=== PATIENT | male | born 1970 | race Caucasian/White ===

== ENCOUNTER 2016-03-14 08:24 | Outpatient (RCR) | payer MEDICARE, MEDICAID ==
[~2016-03-14 08:24] MED LIST: AZIT-21 PO; BENZ200C25 PO; BRIM5DRO OU; CODE118S2 PO; CYMBALTA; EYE DROPS; GFCD10B PO; HYDR-3454 PO; NAPR500T PO; Norflex PO; OMEG-12 PO; OXCA600T3 PO; TRAV5DRO OU; [UNRECOGNIZED DRUG - OTHER]
== END 2016-04-15 09:44 | disposition home or self-care (01) ==
PROVIDERS: ATTEND Nurse Practitioner
DX: M75.41 Impingement syndrome of right shoulder (principal)

== ENCOUNTER 2016-05-06 21:03 | Emergency (ER) | payer MEDICARE, MEDICAID ==
[~2016-05-06] VITALS: Ht 170.2 cm; Wt 149.7 kg
--- OUTSIDE RECORDS SUMMARY | 2016-05-06 21:07 | XMS REPORT | Continuity of Care Document ---
Author Author [facility] Organization [facility] Address Unknown Phone Unavailable Care Team Providers Care Physical Therapist Clinic Director Name Role Phone NENA MELGOZA MD PCP Insurance Providers Payer Name Policy Number Subscriber Name Relationship [employer] [id number] Jim Shannon 18 Self / Same As Patient Medicaid [place] [id number] Jim Shannon 18 Self / Same As Patient Advance Directives Directive Response Recorded Date/Time Advance Directives No 01/14/16 10:19am Health Care Power of School Plant Consultant No 01/14/16 10:19am Organ Donor No 01/14/16 10:19am Problems Active Problems Medical Problem Onset Date Status Back pain Unknown Acute Bronchitis Unknown Acute Contusion of shoulder Unknown Acute Medications Current Home Medications Medication Dose Units Route Directions Days/Qty Instructions Start Date Brimonidine Tartrate/Timolol 5 Ml 1 Drop Each Eye Daily 04/19/14 Travoprost 5 Ml 1 Drop Each Eye Daily 04/19/14 [place]-3/Dha/Epa/Fish Oil 1 Each 1 Each Oral Daily 04/19/14 Oxcarbazepine 600 Mg 1,500 Mg Oral Daily 04/19/14 Naproxen 500 Mg 500 Mg Oral Daily 14 01/27/15 [Norflex] 100 Mg Oral Twice A Day as needed for Pain 14 01/27/15 Hydrocodone/Acetaminophen 1 Each 1-2 Tab Oral Every 4HRS for Pain 20 01/14/16 Past Home Medications Medication Directions Ordered Status [Tripliptel] , 06/22/10 Discontinued [Cymbalta] , 09/19/09 Discontinued [Eye Drops] , 09/19/09 Discontinued Promethazine Hcl/Codeine 120 Ml Syrup, 5 Ml Oral Q 4 - 6 Hrs Prn as needed for Cough 05/24/14 Discontinued Azithromycin (Zpak) 250 Mg Tab, 1 Tab Oral Daily 05/24/14 Discontinued Benzonatate (Tessalon Perles) 200 Mg Capsule, 1 Each Oral Three Times A Day as needed for Cough 05/24/14 Discontinued Social History Social History Problem Response Recorded Date/Time Alcohol Use Denies Use 01/27/2015 11:13am Recreational Drug Use No 01/27/2015 11:13am Recent Foreign Travel No 02/08/2016 9:10am Do you dip or chew tobacco? No 01/27/2015 11:13am Recent Hopitalizations No 01/14/2016 10:19am Hospital Discharge Instructions No hospital discharge instructions. Plan of Care Prescriptions See Medication Section Functional Status No functional status results. Allergies, Adverse Reactions, Alerts Allergen Type Severity Reaction Status Last Updated PENICILLIN Allergy Unknown Active 04/19/14 Immunizations No immunization records. Vital Signs No known vital signs results. Results No known relevant diagnostic tests, laboratory data and/or discharge summary. Procedures No known history of procedures. Encounters Encounter Location Arrival/Admit Date Discharge/Depart Date Attending Provider Discharged Recurring [facility] 03/14/16 8:24am 9:44am FAIZA AYALA
[2016-05-06] MEDS ORDERED: PROMETHAZINE/ CODEINE SYRUP 5 ML UDC PO ONE (21:15)
--- NOTE | 2016-05-06 21:15 | ED Fever ---
History of Present Illness General Stated Complaint: FEVER/COUGH Source: patient Exam Limitations: no limitations History of Present Illness Time seen by provider: 21:14 Initial Comments To ER with a fever up to 103 and nonproductive cough since last night as well as general malaise. He states that his is ill with similar symptoms Timing/Duration: yesterday Fever Quality: greater than 102 F Associated Symptoms: cough Allergies and Home Medications Allergies Uncoded Allergies: PENICILLIN (Allergy, Unknown, 04/19/14) Home Medications #14 100 MG PO BID PRN PRN PAIN Prescribed by: VAL BYERS on 01/27/15 1112 Brimonidine Tartrate/Timolol 5 Ml Drops 1 DROP OU DAILY (Reported) Hydrocodone/Acetaminophen 1 Each Tablet #20 1-2 TAB PO Q4H Prescribed by: EDWAR HARRIS MD on 01/14/16 1117 Naproxen 500 Mg Tablet #14 500 MG PO DAILY Prescribed by: VAL BYERS on 01/27/15 1112 [place]-3/Dha/Epa/Fish Oil 1 Each Capsule.dr 1 EACH PO DAILY (Reported) Oxcarbazepine 600 Mg Tablet 1,500 MG PO DAILY (Reported) Travoprost 5 Ml Drops 1 DROP OU DAILY (Reported) Constitutional: see HPI chills fever malaise EENTM: nose congestion see HPI Respiratory: see HPI cough Cardiovascular: no symptoms reported Genitourinary: no symptoms reported Musculoskeletal: no symptoms reported Skin: no symptoms reported Psychiatric/Neurological: No Symptoms Reported Hematologic/Lymphatic: No Symptoms Reported Past Lvnxqot-Ijcbyo-Wadqfz Hx Patient Social History Recent Foreign Travel: No Contact w/Someone Who Travel: No Recent Hopitalizations: No Seasonal Allergies Seasonal Allergies: No Surgeries HX Surgeries: Yes (KIDNEY) Respiratory Hx Respiratory Disorders: No Cardiovascular Hx Cardiac Disorders: No Neurological Hx Neurological Disorders: Yes (PSYCH PROBLEMS) Gastrointestinal Hx Gastrointestinal Disorders: No Musculoskeletal Hx Musculoskeletal Disorders: No Endocrine Hx Endocrine Disorders: No Psychosocial Hx Psychiatric Problems: Yes Behavioral Health Disorders: ADD/ADHD, Bipolar, Personality Disorder, Depression Physical Exam Vital Signs Vital Sign - Last 12Hours Capillary Refill : General Appearance: WD/WN no apparent distress Eyes: Bilateral Eye EOMI, Bilateral Eye Normal Inspection, Bilateral Eye PERRL HEENT: PERRL/EOMI normal ENT inspection TMs normal pharynx normal Neck: non-tender full range of motion Respiratory: lungs clear normal breath sounds no respiratory distress no accessory muscle use Cardiovascular: regular rate, rhythm no murmur Gastrointestinal: normal bowel sounds non tender soft Extremities: normal range of motion non-tender normal inspection Neurologic/Psychiatric: alert normal mood/affect oriented x 3 Skin: normal color warm/dry Progress/Results/Core Measures Results/Orders Micro Results Microbiology 05/06/16 Influenza Types A,B Antigen (ROBEL) - Final, Complete My Orders Orders-VAL BYERS APRN Chest Pa/Lat (2 View) (05/06/16 21:10) Influenza A And B Antigens (05/06/16 21:10) Promethazine/ Codeine Syrup (Phenergan W (05/06/16 21:15) Medications Given in ED Current Medications Medications Dose Ordered Sig/Blanca Route Start Time Stop Time Status Last Admin Dose Admin Promethazine HCl/ Codeine 5 ml ONCE ONCE PO 05/06/16 21:15 05/06/16 21:16 DC 05/06/16 21:27 5 ML Vital Signs/I&O Vital Sign - Last 12Hours 05/06/16 05/06/16 21:10 21:10 Temp 98.0 Pulse 122 Resp 20 B/P 145/80 Pulse Ox 98 O2 Delivery Room Air Room Air Departure Impression Impression: Primary Impression: Influenza-like symptoms Disposition: 01 HOME, SELF-CARE Condition: Stable Departure-Patient Inst. Decision time for Depature: 21:46 Referrals: [facility] (PCP/Family) Primary Care Physician Patient Instructions: VIRAL SYNDROME Add. Discharge Instructions: 1. Medication as directed 2. REturn tO ER for any concerns 3. See your doctor later this week Scripts Promethazine HCl/Codeine (Promethazine-Codeine Syrup)118 Ml Syrup5 Ml PO Q4H PRN COUGH #120 ML Prov:VAL BYERS APRN 05/06/16 Oseltamivir Phosphate (Tamiflu)75 Mg Cap75 Mg PO BID #9 CAP Prov:VAL BYERS APRN 05/06/16 Work/School Note: Work Release Form Date Seen in the Emergency Department: May 06, 2016 Return to Work: May 08, 2016 VAL BYERS APRN May 06, 2016 21:15
--- NOTE | 2016-05-06 21:42 | Diagnostic Imaging Report ---
INDICATION: Cough, fever and dizziness. COMPARISON STUDIES: Chest from 05/24/2014. FINDINGS: Frontal and lateral views of the chest demonstrate the lungs to be clear. The heart, mediastinum and pulmonary vascularity are normal. Dextroscoliosis is again identified. IMPRESSION: There are no acute findings. Dictated by: Dictated on workstation # [id number]
[2016-05-06] MEDS ORDERED: OSLT75C PO (21:47)
[2016-05-06] MEDS ORDERED: CODE118S2 PO (21:47)
[2016-05-06] MEDS ORDERED: RX-OSELTAMIVIR 75 MG (TAMIFLU) BOX OF 10 PO ONE (21:55)
[2016-05-06 21:59] VITALS: BP 0/0
== END 2016-05-06 21:59 | disposition home or self-care (01) ==
LOC: EDUNIT# 21:03 → ER 21:04
DX: J11.1 Influenza due to unidentified influenza virus with other respiratory manifestations (principal)
CPT/HCPCS: 71020; 87804; 99283

== ENCOUNTER 2018-12-01 05:47 | Outpatient (CLI) | payer MEDICARE, MEDICAID ==
[~2018-12-01] VITALS: Ht 167.6 cm; Wt 149.7 kg
[~2018-12-01 05:47] MED LIST changes: +CODE118S4 PO; -HYDR-3454 PO; +HYDR-3455 PO; +NAPR-1071 PO; -NAPR500T PO; +OSLT75C PO
[2018-12-01] MEDS ORDERED: LATA2.5D5 OU (13:29)
[2018-12-01] MEDS ORDERED: OMEG100032 PO (13:29)
[2018-12-01] MEDS ORDERED: OXCA600T10 PO (13:29)
[2018-12-01] MEDS ORDERED: DULO60CA59 PO (13:29)
[2018-12-01] MEDS ORDERED: BRIM5DRO OU (13:29)
[2018-12-01] MEDS ORDERED: DULO30CA3 PO (13:33)
== END 2018-12-01 13:33 | disposition home or self-care (01) ==
LOC: PREOP 05:47
PROVIDERS: ATTEND Specialist
DX: Z01.818 Encounter for other preprocedural examination (principal)

== ENCOUNTER 2018-12-04 06:32 | Day surgery (SDC) | payer MEDICARE, MEDICAID ==
[~2018-12-04] VITALS: Ht 167.6 cm; Wt 149.7 kg
[~2018-12-04 06:32] MED LIST changes: +DULO30CA3 PO; +DULO60CA59 PO; +LATA2.5D5 OU; +OMEG100032 PO; +OXCA600T10 PO
[2018-12-04] MEDS ORDERED: TROPICAMIDE 1% OPH SOLN (MYDRIACYL) 15 ML BTL OU PRN (06:45)
[2018-12-04] MEDS ORDERED: PHENYLEPHRINE 10% OPHTH (NEO-SYN) 5 ML BTL OU PRN (06:45)
[2018-12-04 06:50] VITALS: BP 133/89
[2018-12-04] MEDS: TETRACAINE 0.5% OPHTH SOLN 4 ML BTL (SINGLE DOSE ONLY) OU PRN ×3 (06:55→07:11)
[2018-12-04] MEDS ORDERED: MIDAZOLAM 2 MG/2 ML (VERSED) VIAL ONE (07:00)
--- NOTE | 2018-12-04 07:24 | Ophthalmologist Pre-Op Note ---
Pre-Operative Progress Note H&P Reviewed The H&P was reviewed, patient examined and no changes noted. Date H&P Reviewed: Dec 04, 2018 Time H&P Reviewed: 07:23 Pre-Op Dx Secondary Cataract, Bilateral Eyes ENRRIQUE WILKINS MD Dec 04, 2018 07:24
[2018-12-04 07:55] VITALS: BP 133/89
--- NOTE | 2018-12-04 07:58 | Ophthalmology Operative Report ---
YAG Capsulotomy PREOPERATIVE DIAGNOSIS: Secondary Cataract Bilateral POSTOPERATIVE DIAGNOSIS: Secondary Cataract Bilateral PROCEDURE: YAG Capsulotomy, Bilateral SURGEON: Fortunato Wilkins ANESTHESIA: Topical anesthesia COMPLICATIONS: None ESTIMATED BLOOD LOSS: Minimal DESCRIPTION OF PROCEDURE: After proper informed consent was obtained, the patient's, a 48 male , received one drop of Tropicamide and one drop of Tetracaine in each eye. The patient was then placed at the YAG laser and using a power of 3.4 millijoules and bursts [ 12] right eye and [ 14] left eye were used to fashion a central capsulotomy. The patient tolerated the procedure well without complications. FORTUNATO WILKINS MD Dec 04, 2018 07:58
== END 2018-12-04 07:55 | disposition home or self-care (01) ==
LOC: SDC 06:32
PROVIDERS: ATTEND Specialist
DX: H26.493 Other secondary cataract, bilateral (principal); F32.9 Major depressive disorder, single episode, unspecified; F41.9 Anxiety disorder, unspecified; Z88.0 Allergy status to penicillin; Z79.899 Other long term (current) drug therapy; Z83.3 Family history of diabetes mellitus; Z83.511 Family history of glaucoma

== ENCOUNTER 2019-04-19 20:55 | Emergency (ER) | payer MEDICARE, MEDICAID ==
[~2019-04-19] VITALS: Ht 170.1 cm; Wt 150.6 kg
--- NOTE | 2019-04-19 21:46 | Diagnostic Imaging Report ---
ANKLE, RIGHT, 3 VIEWS COMPARISON: None available. INDICATION: Right ankle pain after injury TECHNIQUE: Non-weight bearing AP, oblique, and lateral views. FINDINGS: Medial inversion of the foot is noted. No acute fracture about the ankle. No osteochondral lesion of the talar dome. IMPRESSION: 1. Medial inversion of the foot may be chronic in nature. There is no acute fracture or traumatic malalignment about the right ankle. Dictated by: Dictated on workstation # [id number]
--- NOTE | 2019-04-19 21:58 | ED Lower Extremity ---
General Chief Complaint: Lower Extremity Stated Complaint: R ANKLE INJ Nursing Triage Note: STATES FELL DOWN SOME STARIS ON FRIDAY AND NOW HAVING DIFFICULT TIME BEARING WEIGHT D/T PAINAND SWELLING IN HIS RIGHT FOOT. Nursing Sepsis Screen: No Definite Risk Source: patient Exam Limitations: no limitations History of Present Illness Date Seen by Provider: Apr 19, 2019 Time Seen by Provider: 21:09 Initial Comments 48-year-old male who presents to the emergency room with right ankle pain and swelling after he twisted his ankle and fell down stairs 2 days ago. He denies other injuries from the fall. He reports pain with ambulation. Allergies and Home Medications Allergies Coded Allergies: Penicillins (Verified Allergy, Unknown, 12/01/18) Home Medications Brimonidine Tartrate/Timolol 5 Ml Drops, 1 DROP OU DAILY, (Reported) Duloxetine HCl 60 Mg Capsule.dr, 60 MG PO DAILY, (Reported) Duloxetine HCl 30 Mg Capsule.dr, 30 MG PO DAILY, (Reported) Latanoprost 2.5 Ml Drops, 1 DROPS OU DAILY, (Reported) [place]-3/Dha/Epa/Fish Oil 1,000 Mg Capsule, 1,000 MG PO BID, (Reported) Oxcarbazepine 600 Mg Tablet, 1,500 MG PO DAILY, (Reported) TAKE 2.5 OF 600MG TABS Past Ywqumyc-Sjbigv-Jzwytq Hx Patient Social History Alcohol Use: Denies Use Recreational Drug Use: No Recent Foreign Travel: No Contact w/Someone Who Travel: No Recent Infectious Disease Expo: No Recent Hopitalizations: No Physical Abuse: No Sexual Abuse: No Mistreated: No Fear: No Seasonal Allergies Seasonal Allergies: No Past Medical History Surgeries: Yes (KIDNEY) Respiratory: No Cardiac: No Neurological: Yes (PSYCH PROBLEMS) Developmental Disorder Gastrointestinal: No Musculoskeletal: No Endocrine: No HEENT: No Psychosocial: Yes ADD/ADHD, Anxiety, Bipolar, Personality Disorder, Depression Integumentary: No Blood Disorders: No Physical Exam Vital Signs Vital Signs - First Documented 04/19/19 21:04 Temp 36.7 Pulse 114 Resp 20 B/P (MAP) 128/91 (103) Pulse Ox 98 Capillary Refill : Less Than 3 Seconds Height, Weight, BMI Height: 5'6.00" Weight: 330lbs. 0.0oz. 149.367449lx; 52.00 BMI Method:Stated Progress/Results/Core Measures Results/Orders My Orders Orders - DESTIN COSME Ankle, Right, 3 Views (04/19/19 21:09) Vital Signs/I&O 04/19/19 21:04 Temp 36.7 Pulse 114 Resp 20 B/P (MAP) 128/91 (103) Pulse Ox 98 Blood Pressure Mean: 103 Departure Impression Primary Impression: Sprain and strain of ankle Disposition: 01 HOME, SELF-CARE Condition: Stable/Unchanged Departure-Patient Inst. Decision time for Depature: 21:57 Referrals: [facility] (PCP/Family) Primary Care Physician Patient Instructions: Ankle Sprain (DC) Add. Discharge Instructions: Use the George bandage that was provided as needed for comfort. Ice to the sore areas at 20 minute intervals. Tylenol and ibuprofen as needed for pain relief. Follow-up with your primary care provider within 1 week for recheck. Return back to the emergency room for worsening symptoms or concerns as needed. All discharge instructions reviewed with patient and/or family. Voiced understanding. DESTIN COSME Apr 19, 2019 21:58
[2019-04-19 22:07] VITALS: BP 128/91
== END 2019-04-19 22:07 | disposition home or self-care (01) ==
LOC: EDUNIT# 20:55 → ER 20:57
DX: S93.401A Sprain of unspecified ligament of right ankle, initial encounter (principal); F90.9 Attention-deficit hyperactivity disorder, unspecified type; F41.9 Anxiety disorder, unspecified; F31.9 Bipolar disorder, unspecified; F60.9 Personality disorder, unspecified; Z88.0 Allergy status to penicillin; X50.1XXA Overexertion from prolonged static or awkward postures, initial encounter; W10.9XXA Fall (on) (from) unspecified stairs and steps, initial encounter
CPT/HCPCS: 73610

== ENCOUNTER 2019-07-23 20:54 | Inpatient (IN) | payer MEDICARE, MEDICAID ==
[~2019-07-23] VITALS: Ht 170 cm; Wt 136.9 kg
--- OUTSIDE RECORDS SUMMARY | 2019-07-23 21:01 | XMS REPORT | Summary of Care ---
Author Author [facility] Organization [facility] Address Unknown Phone Unavailable Encounter [facility] RAMA Cervantes [id number] Date(s): 11/12/16 - 11/12/16 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, right eye, stage unspecified Final: Morbid (severe) obesity due to excess calories Final: Body mass index (BMI) 45.0-49.9, adult Discharge Disposition: Home - 01 Attending Physician: CECY DAS MD Admitting Physician: CECY DAS MD Vital Signs Most recent to 1 oldest [Reference Range]: Vital Signs Post procedure Status/Type (11/12/16 11:55 PM) Temperature 99.2 DegF [96.8-99.7 DegF] (11/12/16 11:45 PM) Temp Method Temporal (11/12/16 11:45 PM) Heart Rate 92 bpm (11/12/16 11:55 PM) Respiratory Rate 18 br/min [14-20 br/min] (11/12/16 11:00 PM) Blood Pressure 150/78 mmHg [90-180/50-90 mmHg] (11/12/16 11:55 PM) NIBP MAP 92 mmHg (11/12/16 11:55 PM) NIBP MAP Calc 102 (11/12/16 11:55 PM) NIBP Alarms set and Yes on (11/12/16 11:00 PM) BP Location Arm, left (11/12/16 11:00 PM) BP Cuff Size Large (11/12/16 11:00 PM) Problem List No data available for this section Allergies, Adverse Reactions, Alerts Substance Reaction Severity Status penicillin Active Medications DULoxetine 60 mg oral delayed release capsule 1 CAP, PO, Daily, 0 Refill(s) Start Date: 11/12/16 Status: Ordered OXcarbazepine 600 mg oral tablet = 1 TAB, PO, BID (2 times a day), 0 Refill(s) Start Date: 11/12/16 Status: Ordered Results No data available for this section Immunizations No data available for this section Procedures Procedure Date Related Diagnosis Body Site Eye Vitrectomy Mini1 11/12/16 1auto-populated from documented surgical case Social History No data available for this section Functional Status No data available for this section Assessment and Plan No data available for this section Hospital Discharge Instructions No data available for this section
--- OUTSIDE RECORDS SUMMARY | 2019-07-23 21:01 | XMS REPORT | Summary of Care ---
Author Author [facility] Organization [facility] Address Unknown Phone Unavailable Encounter [facility] RAMA Cervantes [id number] Date(s): 11/12/16 - 11/12/16 [facility] [address] [id number] Final: Panophthalmitis (acute), right eye Final: Glaucoma [...]
--- OUTSIDE RECORDS SUMMARY | 2019-07-23 21:01 | XMS REPORT ---
Author Author [employer]. Organization [employer] Address [address] [address] Care Team Providers Care Black Mill Operator Name Role Phone RUDY CARRASQUILLO Unavailable Unavailable RUDY CARRASQUILLO Unavailable Unavailable NENA MELGOZA Unavailable [facility] Unavailable [facility] [place] [facility] Unavailable INGRID RIVERO Unavailable NO, LOCAL PHYSICIAN Unavailable Unavailable LIZET LANGSTON Unavailable RUDY CARRASQUILLO Unavailable RUDY CARRASQUILLO Unavailable RUDY CARRASQUILLO Unavailable Migration, Doctor Unavailable Unavailable Migration, Doctor Unavailable Unavailable Migration, Doctor Unavailable Unavailable CHRISTIAN BROWN DO Unavailable Unavailable VAL BYERS MACHINIST/MACHINE BUILDER Unavailable Unavailable FAIZA AYALA NEUROPSYCHOLOGIST Unavailable Unavailable Migration, Doctor Unavailable Unavailable RUDY CARRASQUILLO Unavailable JOSUE PENNNYA Unavailable [facility] PCP [phone] RUDY CARRASQUILLO NEUROPSYCHOLOGIST Unavailable Unavailable PCP, NONE Unavailable Unavailable FRANKY MCCORD, ENRRIQUE Cifuentes Unavailable Unavailable ISSA GALVEZ DO Unavailable Unavailable PEÑA MCCORD, NATASHA London Unavailable Unavailable KAY VAUGHN NEUROPSYCHOLOGIST Unavailable Unavailable VAL BYERS MACHINIST/MACHINE BUILDER Unavailable Unavailable FAIZA AYALA NEUROPSYCHOLOGIST Unavailable Unavailable KIMBERLY MCCORD, EDWAR Delacruz Unavailable Unavailable KELLY ORTIZ MD Unavailable Unavailable DESTIN MANCINI Unavailable Unavailable [facility] PCP QUITA GARCIA Unavailable QUITA GARCIA Unavailable Allergies The data below is from unstructured sources Allergen Type Severity Reaction Status Last Updated PENICILLIN Allergy Unkno wn Active 04/19/14 Allergen Type Severity Reaction Last Updated Verified Status Penicillins ([id number]) Allergy Unknown December 01, 2018 Ye s Active No Information Medications Current Medications Medication Ingredient Drug Dose Dates Status Sig Sig Care Class(es) (Normalized) (Original) Provid er atorvastati atorvastati HMG-CoA 20 mg 07-16-19 Active no At orvastatin no n 20 mg n Reductase 18 information Calcium 20 na me oral tablet Translation Inhibitor mg Orally (no (2 s: [ Once a day 1 phone) sources.) Atorvastati tablet 24h n Calcium Jun, 20 mg, 30 day(s) Atorvastati Active n Calcium 20 mg] cholecalcif cholecalcif Vitamin D 72288 07-16-19 Active no Cholecalcife no rajat 30331 rajat [IU] 18 - information rol 93769 nam e unt oral Translation 10-08-19 UNIT Orally (no capsule (1 s: [ 18 2 times a phone) source.) Cholecalcif week 1 rajat 92594 capsule 17 UNIT] Jun, 2017 Sep, 12 weeks Active ciprofloxac Ciprofloxac Quinolone 500 mg 06-11-19 Active take 1 Cipro 500 mg no in 500 mg in Antimicrobi 14 tablet by 1 tablet by name oral tablet Translation al mouth every Oral route (no (1 source.) s: [ Cipro twelve hours every 12 phone) 500 mg] hours for 10 day(s) May, Active famotidine famotidine Histamine-2 20 mg 07-15-19 Active no Famotidine no 20 mg oral Translation Receptor 18 information 20 mg Oral ly name tablet (2 s: [ Antagonist Once a day 1 (no sources.) Famotidine tablet at phone) 20 mg, bedtime 24h Famotidine Jun, 20 mg] 30 day(s) Active no Fish Oil no 1000 02-03-20 Active no Fish Oil n o information Concentrate information mg 13 information Con centrate name (1 source.) 1000 mg 1000 mg 2 (no Translation times per phone) s: [ Fish day Jan, Active Concentrate 1000 mg] latanoprost latanoprost Prostagland 1 Active no Latanopr ost no 0.05 mg/ml in Analog drop(s information Active 1 name ophthalmic ) OPTHALMIC (no solution (3 Daily phone) sources.) Completed/Discontinued Medications Medication Ingredient Drug Dose Dates Status Sig Sig Care Class(es) (Normalized) (Original) Provid er no Cymbalta , no 04-19-19 Complete no Cymbalta , (no information Not information 15 d information Not phone) (2 Applicable Applicable sources.) Discontinued no Eye Drops no 1 04-19-19 Complete no Eye Drop s no information information drop(s 15 d information Discont inued name (1 source.) ) NOT (no APPLICABLE phone) April 19, 2014 no Eye Drops , no 04-19-[address] ops , (no information Not information drop(s 15 d information Not phone) (2 Applicable ) Applicable sources.) Discontinued no [place]-3/Dha no 12-02-19 Complete take 1 [place]-3/Dha/ (no information /Epa/Fish information 19 d capsule by Epa/F faiza Oil phone) (2 Oil (Fish mouth once (Fish Oil sources.) Oil 1,000 daily 1,000 Mg Ec Mg Ec Softgel) 1 Softgel) 1 Each Each Capsule.dr, Capsule.dr, 1 Each Oral 1 Each Oral Daily Discontinued no [place]-3/Dha no 1000 Complete take 1 [place]-3/Dha/ (n o information /Epa/Fish information mg d capsule by Epa/Fi sh Oil phone) (2 Oil (Fish mouth twice (Fish Oil sources.) Oil 1,000 daily, then 1,000 Mg Mg Softgel) take 1 Softgel) 1,000 Mg capsule by 1,000 Mg Capsule mouth, then Capsule take 1 1,000 Mg capsule by ORAL Twice A mouth Day oseltamivir Oseltamivir Neuraminida 75 mg 05-06-19 Complete no Oseltamivir no 75 mg oral se 17 - d information Phosphate na me capsule (3 Inhibitor 12-02-19 Discontinued (no sources.) 19 75 ORAL phone) Twice A Day May 06, 2016 9:47pm December 01, 2018 no Tripliptel no 04-19-19 Complete no Tripliptel no information information 15 d information Disconti nued name (1 source.) NOT (no APPLICABLE phone) April 19, 2014 no Tripliptel no 04-19-19 Complete no Tripliptel , ( no information , Not information 15 d information Not phone) (2 Applicable Applicable sources.) Discontinued Problems Active Problems Problem Normalized Date of Normalized Normalized Provider Fac ility Classification Problem(s) Problem Problem Problem Sta tus Onset/Resoluti Duration on Allergic Allergy status 05-24-2019 - Episodic Active ENRRIQUE LEMUS [facility] Via reactions (10 to penicillin , MD Mancini sources.) Translations: Hospital - [ - Eczema, [place] unspecified (28407) type L30.9] Anxiety Anxiety 05-24-2019 - Chronic Active RUDY [facility] disorders (20 Translations: [address] [place] [address] sources.) [ Anxiety, - of [facility] Anxiety F41.9, [place] ([address]86) Anxiety, - Anxiety F41.9] Attention-defi Attention-defi 05-24-2019 - Chronic Active TRA VIS BERNOT [facility] Via cit conduct cit , NEUROPSYCHOLOGIST [facility] and disruptive hyperactivity [facility] (2 unspecified (93593) sources.) type Other and Benign Episodic Active ISSA GALVEZ [facility] Via unspecified neoplasm of [facility] benign colon [facility] - neoplasm (2 [place] sources.) (85480) Unclassified Body mass Chronic Active RUDY CARRASQUILLO Juliann duvall (9 sources.) index (BMI) [address] [place] [address] 50-59.9 , of [facility] adult [place] ([address]10) Translations: [ - BMI 50.0-59.9, adult Z68.43, - BMI 50.0-59.9, adult Z68.43] Cataract (2 Cataract no information Active [facility] sources.) CENTER/ISAMAR Mancini [address] [place] [address] ([address]) Other lower Cough Episodic Active VAL BYERS Not Avail able respiratory Translations: (89670) disease (20 [ - Cough R05, sources.) - Cough R05] Other lower Cough Episodic Active NATASHA POMPA [facility] Vi a respiratory MD Mancini disease (1 Hospital - source.) [place] ([address]) Other upper Disease of Episodic Active RUDY Humphreys joserodrick respiratory upper [address] [place] [address] disease (11 respiratory of [facility] sources.) tract, [place] ([address]) unspecified Translations: [ - Upper respiratory disease J39.9, - Upper respiratory disease J39.9] Medical Encounter for Episodic Active RUDY jeffries examination/ev general adult [address] [place] [address] aluation (2 medical of [facility] sources.) examination [place] (33561) without abnormal findings Translations: [ - Medicare annual wellness visit, initial Z00.00] Residual Family history Episodic Active Doctor Julianni ty codes; of diabetes Migration [facility] unclassified mellitus of [place] (14 sources.) Translations: [place] (09292) [ - Family history of diabetes mellitus Z83.3] Residual Family history Episodic Active ENRRIQUE BROWNNILSA [facility] Via codes; of glaucoma MD Mancini unclassified Hospital - (6 sources.) [place] ([address]) Unclassified Family history Episodic Active RUDY CARRASQUILLO [facility] (14 sources.) of ischemic [address] [place] [address] heart disease of [facility] and other [place] ([address]118) diseases of the circulatory system Translations: [ - Family history of early CAD Z82.49, - Family history of diabetes mellitus Z83.3, - Family history of early CAD Z82.49, - Family history of diabetes mellitus Z83.3] Fever of Fever, Episodic Active RUDY CARRASQUILLO [facility] unknown origin unspecified [address] [place] [address] (11 sources.) Translations: of [facility] [ - Fever [place] (41751) R50.9, - Fever R50.9] Esophageal Gastro-esophag Chronic Active [facility] disorders (20 eal reflux [address] [place] [address] sources.) disease of [facility] without [place] ([address]53) esophagitis Translations: [ - Gastroesophage al reflux disease without esophagitis K21.9, Gastroesophage al reflux disease without esophagitis, Gastroesophage al reflux disease without esophagitis, Gastroesophage al reflux disease without esophagitis, - Gastroesophage al reflux disease without esophagitis K21.9] Residual Influenza-like Episodic Active [facility] Via codes; symptoms [facility] [place] unclassified Translations: [facility] (3 sources.) [ (27165) Influenza-like symptoms] Other injuries Injury of Episodic Active [facility] Via and conditions ankle [facility] [place] due to [facility] external (87108) causes (1 source.) Spondylosis; Lumbosacral Chronic Active KAY [facility] Via intervertebral spondylosis RODERICK Mancini disc without Hospital - disorders; myelopathy [place] other back (98113) problems (1 source.) 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 ENRRIQUE MARINA MARIAH [facility] Via (7 sources.) depressive MD Mancini disorder, Hospital - single [place] episode, (85451) unspecified Translations: [ BIPOLAR DISORDER, UNSPECIFIED] Other Morbid Chronic Active [facility] nutritional; (severe) [address] [facility] endocrine; and obesity due to of [facility] metabolic excess [place] () disorders (2 calories sources.) Translations: [ - Morbid obesity E66.01] External cause Other external Episodic Active KAY [facility] Via codes: cause status RODERICK Mancini Unspecified (4 Translations: Hospital - sources.) [ OTHER [place] EXTERNAL CAUSE () STATUS, ACTIVITY, PERSONAL BATHING AND SHOWERING] Other Other long Episodic Active ENRRIQUE WILKINS [facility] Via aftercare (6 term (current) , MD Mancini sources.) drug therapy [facility] () Other upper Other seasonal Chronic Active RUDY Schmitt [facility] respiratory allergic [address] [place] [address] Center disease (20 rhinitis of [facility] sources.) Translations: [place] () [ - Seasonal allergic rhinitis, unspecified allergic rhinitis trigger J30.2, - Seasonal allergic rhinitis, unspecified allergic rhinitis trigger J30.2] Cataract (6 Other Chronic Active ENRRIQUE ANLIKER [facility] Via sources.) secondary , MD Mancini cataract, Hospital - bilateral [place] () Otitis media Otitis media, Episodic Active RUDY Schmitt [facility] and related unspecified, [address] [facility] conditions (20 left ear of [facility] sources.) Translations: [place] () [ - Left otitis media, unspecified chronicity, unspecified otitis media type H66.92, - Eustachian tube dysfunction, right H69.81, - Left otitis media, unspecified chronicity, unspecified otitis media type H66.92, - Eustachian tube dysfunction, right H69.81] External cause Overexertion 05-24-2019 - Episodic Active TRAVI S BERNOT [facility] Via codes: from prolonged , NEUROPSYCHOLOGIST [place] Natural/enviro static or Hospital - nment (2 awkward [place] sources.) postures, (27867) initial encounter Other Pain in right 05-24-2019 - Episodic Active DESTIN GRACIA NOT [facility] Via non-traumatic ankle and , NEUROPSYCHOLOGIST [place] joint joints of Hospital - disorders (2 right foot [place] sources.) (27185) External cause Parking lot as Episodic Active VAL BYERS [facility] Via codes: Place the place of [place] of occurrence occurrence of Hospital - (2 sources.) the external [place] cause (11648) Translations: [ BATHROOM OF SINGLE-FAMILY (PRIVATE) HOUS] Personality Personality 05-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 - Chronic Active DESTIN BE RNOT [facility] Via disorders (2 disorder, , NEUROPSYCHOLOGIST [place] sources.) unspecified Hospital - [place] (34827) Unclassified Secondary no information Active COMM[facility]ITY [facility] Via (1 source.) cataract [facility] ([address]) Other Special Episodic Active ISSA LEONOR , [facility] Via screening for screening for DO [place] suspected malignant Hospital - conditions neoplasms of [place] (not mental colon (90791) disorders or infectious disease) (1 source.) Sprains and Sprain of 05-24-2019 - Episodic Active DESTIN SONNY OT [facility] Via strains (2 unspecified , NEUROPSYCHOLOGIST [place] sources.) ligament of Hospital - right ankle, [place] initial (87512) encounter External cause Unspecified 05-24-2019 - Episodic Active LYNNET TE [facility] Via codes: Fall (5 fall VAUGHN [place] sources.) Translations: Hospital - [ OTH FALL [place] SAME LEV DUE (18848) TO COLLISION W ANO, FALL IN (INTO) SHOWER OR EMPTY BATHTUB, , FALL (ON) (FROM) UNSPECIFIED STAIRS AND ] Other injuries Unspecified Episodic Active VAL BYERS [facility] Via and conditions injury of [facility] due to lower back, Hospital - external initial [place] causes (2 encounter (67630) sources.) Unclassified no information no information Active [facility]ITY [facility] Via (2 sources.) [facility] ([address]) Past or Other Problems Problem Normalized Date of Normalized Normalized Provider Fac ility Classification Problem(s) Problem Problem Problem Sta tus Onset/Resoluti Duration on Anal and Anal fissure Episodic Completed ISSAPARISH GALVEZ , [facility] Via rectal DO [place] conditions (1 Hospital - source.) [place] (84462) External cause Bathroom of no information no information LIZBETH CARRASQUILLO [facility] Via codes: Place single-family [place] of occurrence (private) Hospital - (1 source.) house as the [place] place of (51781) occurrence of the external cause Other and Benign Episodic Completed ISSAPARISH GALVEZ , [facility] Via unspecified neoplasm of DO [facility] benign rectum and Hospital - neoplasm (1 anal canal [place] source.) (78798) Immunizations Encounter for Episodic Completed EDWAR HARRIS [facility] Via and screening immunization MD Mancini for infectious Hospital - disease (1 [place] source.) (47900) External cause Fall in (into) no information no information AAKASH CARRASQUILLO [facility] Via codes: Fall (1 shower or [place] source.) empty bathtub, Hospital - initial [place] encounter (91990) Other Impingement Episodic Completed FAIZA AYALA Not Avail able connective syndrome of (62378) tissue disease right shoulder (4 sources.) Influenza (3 Influenza due Episodic Completed VAL BYERS [facility] Via sources.) to [place] unidentified Hospital - influenza [place] virus with (75640) other respiratory manifestations Open wounds of Laceration Episodic Completed EDWAR HARRIS [facility] Via extremities (1 without MD Mancini source.) foreign body Hospital - of right [place] middle finger (41854) without damage to nail, initial encounter Mood disorders Major no information no information ENRRIQUE LEMUS [facility] Via (1 source.) depressive MD Mancini disorder, Hospital - single [place] episode, (28208) unspecified External cause Other external no information no information AAKASH SIGALA [facility] Via codes: cause status [place] Unspecified (2 Translations: Hospital - sources.) [ ACTIVITY, [place] PERSONAL (81620) BATHING AND SHOWERING] Procedures Procedure Normalized Procedure Procedure Result Performer Facility Date 07-14-2017 Collection venous no information no name (no phone) [facility] blood venipuncture [facility] ([id number]) 06-10-2013 Culture bacterial no information no name (no phone) [facility] quanttative colony [facility] (09897) 10-17-2017 Fall risk assessment no information no name (no vargas ne) [facility] docd [facility] (51553) 07-14-2017 FQHC visit, estab pt no information no name (no vargas ne) [facility] (49024) 10-17-2017 [facility]HC visit, IPPE or no information no name (no phon e) [facility] AWV [facility] (84170) 07-14-2017 LAB NOT BILLED BY no information no name (no phone) [facility] (21054) 10-17-2017 Pt tobacco screen rcvd no information no name (no p mainor) [facility] tlk [facility] (54161) 06-24-2013 Urnls dip stick/tablet no information no name (no p mainor) [facility] rgnt auto w/o [facility] (53352) 06-10-2013 Urnls dip stick/tablet no information no name (no p mainor) [facility] rgnt auto w/o [facility] (05517) 04-19-2019 X-ray of right ankle no information no name (no vargas ne) [facility] (48078) 12-04-2018 YAG laser capsulotomy no information ENRRIQUE FRIEND R [facility] Via [facility] (16457) 12-04-2018 - 12-04-2018 Immunizations Normalized Immunization Date Notes Care Provider Facili ty Immunization tetanus toxoid, 01-14-2016 - no information [facility] [place] Via reduced diphtheria 01-14-2016 19554 [facility] pital toxoid, and (78216) acellular pertussis vaccine, adsorbed Results The data below is from unstructured sourcesNo Known Results No Known Results No Known Results No known relevant diagnostic tests, laboratory data and/or discharge summary.No known relevant diagnostic tests, laboratory data and/or discharge summary.No kno wn relevant diagnostic tests, laboratory data and/or discharge summary.No known relevant diagnostic tests, laboratory data and/or discharge summary.No known rel evant diagnostic tests, laboratory data and/or discharge summary.No known releva nt diagnostic tests, laboratory data and/or discharge summary.No known relevant diagnostic tests, laboratory data and/or discharge summary.No known relevant macy gnostic tests, laboratory data and/or discharge summary.No known relevant diagno stic tests, laboratory data and/or discharge summary.No known relevant diagnosti c tests, laboratory data and/or discharge summary. No Results No Results No Results No Results No Results No Results No Results No Results No Results No Results No Results No Results No Results No Results No Results No Results No Results No Results No Results No ResultsNo relevant diagnostic test, laboratory data and/or discharge summary information available.No relevant diagnostic test, laboratory data and/or discharge summary information available.No relevant diagnostic test, laboratory data and/or discharge summary information available.No relevant diagnostic test, laboratory data and/or discharge summary information available.No known relevant diagnostic tests and/or laboratory data.No known relevant diagnostic tests and/or laboratory data. No Results No Results Vital Signs Vital Sign Value Interpretation Reference Date Time Care Prov ider Facility (Normalized) (Normalized) Range BMI (Body Mass 52.9 kg/m2 (no code) 15 - 25 kg/m2 10-17-2017 AAKASH SIGALA FOREIGN [facility]) 09:00-0400 71747 [facility] (26069) BMI (Body Mass 53.53 kg/m2 (no code) 15 - 25 kg/m2 07-14-2017 Lynn CARRASQUILLO Community Index) 10:20-0400 24644 [facility] (41184) Body height 167.64 cm (no code) cm 06-24-2013 QUITA AJ [facility] 16:13-[id number] [place] [address] (30627) Body height 167.64 cm (no code) cm 06-10-2013 QUITA AJ [facility] 12:46-0400 93904 [facility] (82739) Body 98.1 [degF] (no code) 97.8 - 99.0 10-17-2017 [facility] Temperature [degF] 09:00-0400 34515 [facility] (44012) Body 97.7 [degF] (no code) 97.8 - 99.0 07-14-2017 [facility] Temperature [degF] 10:200400 07404 [facility] (51490) Body 100 [degF] (no code) 97.8 - 99.0 05-20-2014 EVON [facility] Temperature [degF] 10:44-0500 22357 [facility] (08194) Body 98 [degF] (no code) 97.8 - 99.0 06-24-2013 QUITA Frey [facility] temperature [degF] 16:13-0400 03101 [facility] (56464) Body 98 [degF] (no code) 97.8 - 99.0 06-10-2013 QUITA Frey [facility] temperature [degF] 12:46-[address] [place] [address] (25284) Body weight 143.52 kg (no code) kg 05-20-2014 [facility] 10:44-[address] [place] [address] (93879) Body weight 144.7 kg (no code) kg 06-24-2013 [facility] 16:130400 [address] [place] [address] (44886) Body weight 144.24 kg (no code) kg 06-10-2013 [facility] 12:46-[address] [place] [address] (88931) Height 167.64 cm (no code) cm 10-17-2017 RUDY CARRASQUILLO [facility] 09:00-[address] [place] [address] (27379) Height 167.64 cm (no code) cm 07-14-2017 [facility] 10:20-[address] [place] [address] (94539) Height 167.64 cm (no code) cm 05-20-2014 [facility] mmunity 10:440500 [address] [place] [address] (11788) Weight 148.69 kg (no code) kg 10-17-2017 RUDY [facility] 09:00-[address] [place] [address] (34443) Weight 150.46 kg (no code) kg 07-14-2017 RUDY [facility] 10:20-[address] [place] [address] (74357) Interventions No Information Plan of Treatment Normalized Care Care Detail Care Activity Date Care Provider F acility Activity Patient Education Ankle Sprain (DC) no information [facility] [place] [address] [place] [address] (60295) Patient referral no information no information [facility] [address] [place] [address] (00132) Goals Patient Goal Desired Goal no information no information Social History Normalized Code Original Code Date Value no information no information 01-27-2015 Denies Use no information no information 01-27-2015 No no information no information 04-20-2019 Denies Sex Assigned At Sex Assigned At no information M dia Functional Status The data below is from unstructured sourcesNo functional status results.No functional status results.No functional status results.No functional status results.No functional status results.No functional status results.No functional status results.No functional status results.No functional status results.No functional status information available.No functional status information available.No functional status information available.No functional status information available.No Functional Status information availableNo Fu nctional Status information available Mental Status The data below is from unstructured sourcesNo Mental Status Information Available Encounters Encounter Normalized Encounter Encounter Diagnosis Care Provi phillip Organization Date Type 06-13-2016 (ACUTE) Acute Visit Other seasonal BERNICE ALBERT (n o [facility] - allergic rhinitis phone) BERNICE Osman (no phone) 06-13-2016 (no phone) - 06-13-2016 07-14-2017 (AV-MALE) Annual Male Body mass index (BMI) RUDY CARRASQUILLO (no [facility] - Visit 50-59.9 , adult phone) (no phone) 07-14-2017 - 07-14-2017 10-17-2017 (MAWV) Medicare Annual Encounter for general LIZBETH CARRASQUILLO (no [facility] - Wellness Visit adult medical phone) (no phone ) 10-17-2017 examination without - abnormal findings 10-17-2017 01-15-2016 (SD ACUTE) Same Day Unspecified injury of RUDY MERCHANTVane (no [facility] - Acute right shoulder and phone) (no vargas ne) 01-15-2016 upper arm, initial - encounter 01-15-2016 05-26-2016 (WALK-IN) Walk-In Care Other seasonal LIZET BLACKBURN NS (no [facility] - allergic rhinitis phone) LIZET CARE (no vargas ne) 05-26-2016 zzCOLLINS (no phone) - LIZET PatelINS (no 05-26-2016 phone) 11-10-2015 (WALK-IN) Walk-In Care Otitis media, LIZET DRAKE S (no [facility] - unspecified, left ear phone) LIZET CARE (no phone) 11-10-2015 zzCOLLINS (no phone) - LIZET PatelINS (no 11-10-2015 phone) 09-26-2015 (WALK-IN) Walk-In Care Cough GABI Marshall (no [facility] - phone) CARE (no phone) 09-26-2015 - 09-26-2015 05-18-2015 (WALK-IN) Walk-In Care Cough ZA NUNEZJULIA N (no [facility] - phone) CARE (no phone) 05-18-2015 - 05-18-2015 12-04-2018 Admission to day no information ENRRIQUE WILKINS Wor k no organization name - surgery (no phone ) 12-04-2018 ENRRIQUE WILKINS 04-27-2019 [facility] Bronchitis, not DESTIN COSME ( no [facility] - CARE specified as acute or phone) CARE (no phone) 04-27-2019 chronic - 04-27-2019 04-13-2019 [facility] Bronchitis, not LOREE RAMIREZ (no [facility] - CARE specified as acute or phone) CARE (no phone) 04-13-2019 chronic - 04-13-2019 11-09-2018 [facility] Dermatitis, MEÑO ROSINA (n o [facility] - CARE unspecified phone) CARE (no phone ) 11-09-2018 - 11-09-2018 07-15-2017 [facility] no information RUDY CARRASQUILLO ( no [facility] - phone) (no phone) 07-15-2017 - 07-15-2017 01-22-2016 [facility] no information RUDY CARRASQUILLO ( no [facility] - phone) (no phone) 01-22-2016 - 01-22-2016 11-15-2015 [facility] no information RUDY CARRASQUILLO ( no [facility] - phone) (no phone) 11-15-2015 - 11-15-2015 07-12-2014 [facility] no information Doctor Migrati on ([facility] (no phone) 07-12-2014 - 07-12-2014 07-11-2014 [facility] no information Doctor Migrati on (no [facility]) (no phone) 07-11-2014 - 07-11-2014 05-27-2014 [facility] no information RUDY CARRASQUILLO ( no [facility] - phone) Doctor (no phone) 05-27-2014 [facility] (no phone) - RUDY CARRASQUILLO (no 05-27-2014 phone) Doctor Migration (no phone) RUDY CARRASQUILLO (no phone) Doctor Migration (no phone) 05-20-2014 [facility] no information EVON MADL (n o phone) [facility] - Doctor Migration (no (no phone) 05-20-2014 phone) EVON MADL (no - phone) Doctor 05-20-2014 [facility] (no phone) EVON MADL (no phone) Doctor Migration (no phone) 02-25-2014 [facility] no information JESSICA zzSANCHE Z (no [facility] - phone) Doctor (no phone) 02-25-2014 [facility] (no phone) - JESSICA zzSANCHEZ (no 02-25-2014 phone) Doctor Migration (no phone) JESSICA zzSANCHEZ (no phone) Doctor Migration (no phone) 02-23-2014 [facility] no information JESSICA zzSANCHE Z (no [facility] - phone) Doctor (no phone) 02-23-2014 [facility] (no phone) - JESSICA zzSANCHEZ (no 02-23-2014 phone) Doctor Migration (no phone) JESSICA zzSANCHEZ (no phone) Doctor Migration (no phone) 02-22-2014 [facility] no information RUDY CARRASQUILLO ( no [facility] - phone) JESSICA zzSANCHEZ (no phone) 02-22-2014 (no phone) Doctor - Migration (no phone) 02-22-2014 RUDY CARRASQUILLO (no phone) JESSICA zzSANCHEZ (no phone) Doctor Migration (no phone) RUDY CARRASQUILLO (no phone) JESSICA zzSANCHEZ (no phone) Doctor Migration (no phone) 02-21-2014 [facility] no information Doctor Migrati on (no [facility] - phone) (no phone) 02-21-2014 - 02-21-2014 02-17-2014 [facility] no information Doctor Migrati on (no [facility] - phone) (no phone) 02-17-2014 - 02-17-2014 02-16-2014 [facility] no information JESSICA Melo Z (no [facility] - phone) Doctor (no phone) 02-16-2014 [facility] (no phone) - JESSICA znatashaSANCHEZ (no 02-16-2014 phone) Doctor Migration (no phone) JESSICA zzSANCHEZ (no phone) Doctor Migration (no phone) 06-24-2013 [facility] no information QUITA GARCIA (no [facility] - phone) Doctor (no phone) 06-24-2013 [facility] (no phone) - QUITA GARCIA (no 06-24-2013 phone) Doctor Migration (no phone) QUITA GARCIA (no phone) Doctor Migration (no phone) 06-11-2013 [facility] no information Doctor Migrati on (no [facility] - phone) (no phone) 06-11-2013 - 06-11-2013 06-10-2013 [facility] no information QUITA GARCIA (no [facility] - phone) Doctor (no phone) 06-10-2013 [facility] (no phone) - QUITA GARCIA (no 06-10-2013 phone) Doctor Migration (no phone) QUITA GARCIA (no phone) Doctor Migration (no phone) 02-08-2013 [facility] no information Doctor Migrati on (no [facility] - phone) RUDY CARRASQUILLO (no phone) 02-08-2013 (no phone) Doctor - Migration (no phone) 02-08-2013 RUDY CARRASQUILLO (no phone) Doctor Migration (no phone) RUDY CARRASQUILLO (no phone) 02-03-2013 [facility] no information RUDY CARRASQUILLO ( no [facility] - phone) Doctor (no phone) 02-03-2013 [facility] (no phone) - RUDY CARRASQUILLO (no 02-03-2013 phone) Doctor Migration (no phone) RUDY CARRASQUILLO (no phone) Doctor Migration (no phone) 02-02-2013 [facility] no information RUDY CARRASQUILLO ( no [facility] - phone) Doctor (no phone) 02-02-2013 [facility] (no phone) - RUDY CARRASQUILLO (no 02-02-2013 phone) Doctor Migration (no phone) RUDY CARRASQUILLO (no phone) Doctor Migration (no phone) 06-28-2011 [facility] no information RUDY CARRASQUILLO ( no [facility] - phone) (no phone) 06-28-2011 - 06-28-2011 06-03-2011 [facility] no information RUDY CARRASQUILLO ( no [facility] - phone) (no phone) 06-03-2011 - 06-03-2011 06-01-2011 [facility] no information Doctor Migrati on (no [facility] - phone) (no phone) 06-01-2011 - 06-01-2011 05-31-2011 [facility] no information Doctor Migrati on (no [facility] - phone) (no phone) 05-31-2011 - 05-31-2011 05-28-2011 [facility] no information RUDY CARRASQUILLO ( no [facility] - phone) (no phone) 05-28-2011 - 05-28-2011 04-19-2019 Emergency department no information (no phone) [facility] patient visit [facility] (no phone) 04-20-2019 04-19-2019 Emergency department no information DESTIN JOE (no [facility] - patient visit phone) [facility] 04-19-2019 (no phone) 05-06-2016 Emergency department no information no name (no vargas ne) no organization name - patient visit (no phone) 05-06-2016 05-06-2016 Emergency department no information no name (no vargas ne) no organization name - patient visit (no phone) 05-06-2016 01-14-2016 Emergency department no information no name (no vargas ne) no organization name - patient visit (no phone) 01-14-2016 01-27-2015 Emergency department no information no name (no vargas ne) no organization name - patient visit (no phone) 01-27-2015 10-17-2017 Patient encounter no information no name (no phone) no organization name (no phone) 07-14-2017 Patient encounter no information no name (no phone) no organization name (no phone) 04-19-2019 Patient encounter no information no name (no phone) no organization name procedure (no phone) 04-13-2019 Patient encounter no information no name (no phone) no organization name procedure (no phone) 12-04-2018 Patient encounter no information no name (no phone) no organization name - procedure (no phone) 12-04-2018 12-04-2018 Patient encounter no information no name (no phone) no organization name - procedure (no phone) 12-04-2018 12-01-2018 Patient encounter no information ENRRIQUE [employer] no organization name - procedure (no phone ) 12-01-2018 [email or web address] 12-01-2018 Patient encounter no information no name (no phone) no organization name - procedure (no phone) 12-01-2018 11-09-2018 Patient encounter no information no name (no phone) no organization name procedure (no phone) 11-09-2018 Patient encounter no information no name (no phone) no organization name procedure (no phone) 05-06-2016 Patient encounter no information no name (no phone) no organization name procedure (no phone) 03-14-2016 Patient encounter no information no name (no phone) no organization name - procedure (no phone) 04-15-2016 03-14-2016 Patient encounter no information no name (no phone) no organization name - procedure (no phone) 04-15-2016 01-18-2016 Patient encounter no information no name (no phone) no organization name procedure (no phone) 11-22-2014 Patient encounter no information no name (no phone) no organization name - procedure (no phone) 11-22-2014 11-17-2014 Patient encounter no information no name (no phone) no organization name procedure (no phone) 04-19-2014 Patient encounter no information no name (no phone) no organization name - procedure (no phone) 04-19-2014 10-17-2017 [facility], initial visit no information no name (no phon e) no organization name (no phone) 04-20-2019 Telephone encounter no information INGRID RVIERO (no p mainor) [facility] - (no phone) 04-20-2019 - 04-20-2019 no information Encounter for general no name (no phone) no o rganization name adult medical (no phone) examination without abnormal findings no information Encounter for other no name (no phone) no org anization name preprocedural (no phone) examination no information Pre-operative no name (no phone) no organiza tion name examination, (no phone) unspecified Medical Equipment The data below is from unstructured sourcesNo Medical Equipment Information available Payers Normalized Payer Value Medicaid no information ([id number]) Medicare [id number] ([id number]) Medicare no information ([id number]) Evaluation note Note Type Note Facility Evaluation No Assessments Information Available A scension note [facility] ([id number]) History general Narrative - Reported Note Type Note Facility History general Narrative - Reported Type Medical bipolar disorder History Medical depression History Medical glaucoma History Medical mental retardation History Surgical Kidney surgery 1977 History Surgical Eye surgery for glaucoma 2005 History [facility] ([id number]) Summary Purpose eClinicalWorks SubmissioneClinicalWorks Submission Advance Directives Directive Response Recor ded Date/Time Advance Directives No 10:19am Health Care Power of Stonework Supervisor No 01/14/16 10:19am Organ Donor No 01/14/16 10:19am Directive Response Recor ded Date/Time Advance Directives No 11:13am Health Care Power of Stonework Supervisor No 01/27/15 11:13am Organ Donor No 01/27/15 11:13am Resuscitation Status Full Code 01/27/15 11:13am Directive Response Recor ded Date/Time Advance Directives No 10:17pm Organ Donor No 05/24/14 10:17pm Resuscitation Status Full Code 05/24/14 10:17pm Directive Response Recor ded Date/Time Advance Directives No 2:00pm Health Care Power of Stonework Supervisor No 11/22/14 2:00pm Organ Donor No 11/22/14 2:00pm Resuscitation Status Full Code 11/22/14 2:00pm Directive Response Recor ded Date/Time Advance Directives No 11:14am Organ Donor No 04/19/14 11:14am Resuscitation Status Full Code 04/19/14 11:14am Directive Response Recor ded Date/Time Advance Directives No 7:55am Health Care Power of Stonework Supervisor No 12/04/18 7:55am Organ Donor No 12/04/18 7:55am Resuscitation Status Full Code 12/04/18 7:55am Advance Directive Response Recorded Date/Time Advance Directives No 2019 9:04pm Health Care Power of Stonework Supervisor No April 19, 2019 9:04pm Organ Donor No April [id number] 9:04pm Resuscitation Status Full Code April 19, 2019 9:04pm Discharge Instructions No hospital discharge instructions.No hospital discharge instructions.No hospital discharge instructions. Patient Instructions Physician Instructions Plan of Care/Instructions/FU: 2 weeks Activity as Tolerated: Yes Discharge Diet: Regular Diet Care Plan Patient Instructions:: 2 weeks No hospital discharge instructions.No hospital discharge instruction information available.No hospital discharge instruction information available. Chief Complaint and Reason for Visit Chief Complaint Lower Extremity Reason for Visit [id number] Additional Source Comments This clinical document has been generated using [employer] software that has been certified by the Office of the National Coordinator for Health Information Technology (ONC 15.99.04.3023.Diam.31.00.0.063524) and the National Committee for Certified Paralegal (NCQA, as an eMeasure certified technology). FOR RECORDS PERTAINING TO PATIENTS WHO ARE OR HAVE BEEN ENROLLED IN A CHEMICAL D EPENDENCY/SUBSTANCE ABUSE PROGRAM, SOME INFORMATION MAY BE OMITTED. This clinica l summary was aggregated from multiple sources. Caution should be exercised in using it in the provision of clinical care. This summary normalizes information from multiple sources, and as a consequence, information in this document may ma terially change the coding, format and clinical context of patient data. In eugenia tion, data may be omitted in some cases. CLINICAL DECISIONS SHOULD BE BASED ON T HE PRIMARY CLINICAL RECORDS. [employer] provides no warranty or guara ntee of the accuracy or completeness of information in this document.The followi ng information is based on time limited clinical information UNRECOGNIZED CONTENT PROVIDED BELOW FOR UNRECOGNIZED SECTION MEDICAL (GENERAL) HISTORY Type Description Date Surgical History Kidney surgery 1976 Surgical History Eye surgery for glaucoma 2004 Type Description Date Medical History bipolar disorder Medical History depression Medical History glaucoma Medical History mental retardation Surgical History Kidney surgery 1976 Surgical History Eye surgery for glaucoma 2004 UNRECOGNIZED CONTENT PROVIDED BELOW FOR UNRECOGNIZED SECTION REASON FOR VISIT Medicare AWV - Initial Visit-Luz [id number] [place]
--- OUTSIDE RECORDS SUMMARY | 2019-07-23 21:01 | XMS REPORT | Summary of Care ---
Author Author [facility] er Organization [facility] Address Unknown Phone Unavailable Encounter [facility] RAMA Cervantes [id number] Date(s): 11/12/16 - 11/12/16 [facility] [address] [address] Discharge Disposition: Home - 01 Attending Physician: [...]
--- OUTSIDE RECORDS SUMMARY | 2019-07-23 21:01 | XMS REPORT | Summary of Care ---
Author Author [facility] Organization [facility] Address Unknown Phone Unavailable Encounter [facility] RAMA Cervantes [id number] Date(s): 11/12/16 - 11/12/16 [facility] [address] [address] Final: Panophthalmitis (acute), right eye Final: Glaucoma [...]
--- OUTSIDE RECORDS SUMMARY | 2019-07-23 21:01 | XMS REPORT | Summary of Care ---
Author Author [facility] Organization [facility] Address Unknown Phone Unavailable Encounter [facility] RAMA Cervantes [id number] Date(s): 11/12/16 - 11/12/16 [facility] [address] [address] Final: Panophthalmitis (acute), right eye Final: Glaucoma [...]
--- OUTSIDE RECORDS SUMMARY | 2019-07-23 21:01 | XMS REPORT | Summary of Care ---
Author Author [facility] Organization [facility] Address Unknown Phone Unavailable Encounter [facility] RAMA Cervantes [id number] Date(s): 11/12/16 - 11/12/16 [facility] [address] [address] Final: Panophthalmitis (acute), right eye [...]
--- OUTSIDE RECORDS SUMMARY | 2019-07-23 21:01 | XMS REPORT | Summary of Care ---
Author Author [facility] Organization [facility] Address Unknown Phone Unavailable En[facility] Cervantes [id number] Date(s): 11/12/16 - 11/12/16 [facility] [address] [id number] Final: Panophthalmitis (acute), right eye [...]
--- OUTSIDE RECORDS SUMMARY | 2019-07-23 21:02 | XMS REPORT | Summary of Care ---
Author Author [facility] Organization [facility] Address Unknown Phone Unavailable Encounter [facility] RAMA Cervantes [id number] Date(s): 11/12/16 - 11/12/16 [facility] [address] [address] Final: Panophthalmitis (acute), right eye Final: Glaucoma secondary to other eye disorders, right eye, stage unspecified Final: Morbid (severe) obesity due to excess calories Final: Body mass index (BMI) 45.0-49.9, adult Discharge Disposition: Home - 01 Attending Physician: CECY DAS MD Admitting Physician: CCEY DAS MD Vital Signs Most recent to [...]
--- OUTSIDE RECORDS SUMMARY | 2019-07-23 21:02 | XMS REPORT | Summary of Care ---
Author Author [facility] Organization [facility] Address Unknown Phone Unavailable Encounter [facility] RAMA Cervantes [id number] Date(s): 11/12/16 - 11/12/16 [facility] [address] [address] Final: Panophthalmitis [...]
--- OUTSIDE RECORDS SUMMARY | 2019-07-23 21:02 | XMS REPORT ---
Author Author Jim GARCIA Organization [facility] Address [address] [place] [address] Care Team Providers Care Save All Operator Name Role Phone QUITA GARCIA Unavailable PROBLEMS Type Condition ICD9-CM Code [id number] Code Onset Dates Condition S tatus SNOMED Code Problem Gastroesophageal reflux disease without esophagitis K21.9 Active 253165374 Problem Anxiety F41.9 Active 15260944 Problem Seasonal allergic rhinitis, unspecified allergic rhinitis trigger J30.2 Active 107449009 ALLERGIES No Information ENCOUNTERS Encounter Location Date Diagnosis [facility] [address] [id number] [address] [place] [address] Mar, Bronchitis J40 [facility] [address] [address] Mar, [facility]ALK [facility] [address] [place], [place] [id number] [address] [place] [address] Mar, Bronchitis J40 [facility]ALK [facility] [address] [id number] [address] [place] [address] Oct, Eczema, unspecified type L30 .9 and Morbid obesity E66.01 [facility] [address] [place], [place] [id number] [place] [address] Sep, Medicare annual wellness visit, initial Z00.00 ; Anxiety F41.9 ; Gastroesophageal reflux disease without esophagitis K21.9 and Seasonal allergic rhinitis, unspecified allergic rhinitis trigger J30.2 [facility] [address] [address] Jun, [address] [address] Jun, BMI 50.0-59.9, adult Z68.43 ; Gastroesop hageal reflux disease without esophagitis K21.9 ; Family history of diabetes mellitus Z83.3 ; Family history of early CAD Z82.49 and Anxiety F41.[address] [address] May, Seasonal allergic rhinitis, unspecified allergic rhinitis trigger J30.2 and Eustachian tube dysfunction, right H69.81 [facility] [address] [place] [address] May, Seasonal allergic rhinitis, unspecified allergic rhinitis trigger J30.2 and Eustachian tube dysfunction, right H69.[address] [address] Dec, [address] [address] Dec, Right shoulder injury, initial encounter S49.91XA [address] [address] Oct, [facility] IN [address] [address] Oct, Left otitis media, unspecifi ed chronicity, unspecified otitis media type H66.92 and Upper respiratory disease J39.9 [facility] IN [address] [address] Aug, Cough R05 [facility]ALK IN [address] [address] May, Cough R05 and Fever R50.[address] [address] Jun, [address] [address] Jun, [address] [address] May, [address] [address] May, [facility] [address] [id number] [place] [address] May, [facility] [address] [id number] [place] [address] May, [facility] [address] [id number] [place] [address] Jan, [facility] [address] [id number] [place] [address] Jan, [facility] [address] [id number] [place] [address] Jan, [facility] [address] [id number] [place] [address] Jan, [facility] [address] [id number] [place] [address] Jan, [facility] [address] [id number] [place] [address] Jan, [facility] [address] [id number] [place] [address] Jan, [facility] [address] [id number] [place] [address] Jan, [facility] [address] [id number] [place] [address] Jan, [facility] [address] [id number] [place] [address] Jan, [facility] [address] [id number] [place] [address] Jan, [facility] [id number] [place] [address] Jan, [facility] [address] [id number] [place] [address] May, [facility] [address] [id number] [place] [address] May, [facility] [address] [id number] [place] [address] 14 May, 2013 [facility] [id number] [place] [address] 13 May, 2013 [facility] [address] [id number] [place] [address] May, [facility] [id number] [place] [address] Jan, [facility] [id number] [place] [address] Jan, [facility] [id number] [place] [address] Jan, [facility] [id number] [place] [address] Jan, [facility] [id number] [place] [address] Jan, [facility] [id number] [place] [address] Jan, [facility] [id number] [place] [address] Jan, [facility] [id number] [place] [address] Jan, [facility] [id number] [place] [address] May, [facility] [id number] [place] [address] 05 May, 2011 [facility] [id number] [place] [address] May, [facility] [id number] [place] [address] May, [facility] [id number] [place] [address] 28 May, 2011 IMMUNIZATIONS No Known Immunizations SOCIAL HISTORY Never Assessed REASON FOR VISIT PLAN OF CARE VITAL SIGNS Height 66 in 2013-06-10 Weight 318 lbs 2013-06-10 Temperature 98 degrees Fahrenheit 2013-06-10 Heart Rate 76 bpm 2013-06-10 Respiratory Rate 18 2013-06-10 Blood pressure systolic 128 mmHg 2013-06-10 Blood pressure diastolic 72 mmHg 2013-06-10 MEDICATIONS Unknown Medications RESULTS No Results PROCEDURES Procedure Date Ordered Result Body Site URINE CULTURE/COLONY COUNT June 10, 2013 URINALYSIS, AUTO, W/O SCOPE June 10, 2013 INSTRUCTIONS MEDICATIONS ADMINISTERED No Known Medications MEDICAL (GENERAL) HISTORY Type Description Date Medical History bipolar disorder Medical History depression Medical History glaucoma Medical History mental retardation Surgical History Kidney surgery 1976 Surgical History Eye surgery for glaucoma 2004
--- OUTSIDE RECORDS SUMMARY | 2019-07-23 21:02 | XMS REPORT ---
Author Author Jim Yee Organization [facility] Address [address] [place] [address] Care Team Providers Care Data Control Clerk Name Role Phone JESSICA Yee Unavailable PROBLEMS Type Condition ICD9-CM Code [id number] Code Onset Dates Condition S tatus SNOMED Code Problem Gastroesophageal reflux disease without esophagitis K21.9 Active 854982663 Problem Anxiety F41.9 Active 10848728 Problem Seasonal allergic rhinitis, unspecified allergic rhinitis trigger J30.2 Active 247078788 ALLERGIES No Information ENCOUNTERS Encounter Location Date Diagnosis [facility] [address] [facility] [id number] [address] [place] [address] Oct, Eczema, unspecified type L30 .9 and Morbid obesity E66.01 [facility] [address] [id number] [address] [place] [address] Sep, Medicare annual wellness vis it, initial Z00.00 ; Anxiety F41.9 ; Gastroesophageal reflux disease without esophagitis K21.9 and Seasonal allergic rhinitis, unspecified allergic rhinitis trigger J30.2 [facility] [address] [id number] [address] [place] [address] 17 Jun, 2017 [facility] [address] [id number] [address] [place] [address] Jun, BMI 50.0-59.9, adult Z68.43 ; Gastroesophageal reflux disease without esophagitis K21.9 ; Family history of diabetes mellitus Z83.3 ; Family history of early CAD Z82.49 and Anxiety F41.9 [facility] [address] [id number] [address] [place] [address] May, Seasonal allergic rhinitis, unspecified allergic rhinitis trigger J30.2 and Eustachian tube dysfunction, right H69.81 [facility] [address] [id number] [address] [place] [address] May, Seasonal allergic rhinitis, unspecified allergic rhinitis trigger J30.2 and Eustachian tube dysfunction, right H69.81 [facility] [address] [address] Dec, [facility] [address] [address] Dec, Right shoulder injury, initi al encounter S49.91XA [facility] [address] [address] Oct, [facility] [address] [address] Oct, Left otitis media, unspecifi ed chronicity, unspecified otitis media type H66.92 and Upper respiratory disease J39.9 [facility] [address] [address] Aug, Cough R05 [facility] [address] [address] May, Cough R05 and Fever R50.9 [facility] [address] [address] Jun, [facility] [address] [address] Jun, [facility] [address] [address] May, [facility] [address] [address] May, [facility] [address] [address] May, [facility] [address] [address] May, [facility] [address] [id number] [facility] [place] [address] Jan, [facility] [address] [id number] [address] [place] [address], [place] [address] Jan, [facility] [address] [id number] [address] [place] [address], [place] [address] Jan, [facility] [address] [id number] [address] [place] [address], [place] [address] Jan, [facility] [address] [id number] [address] [place] [address], [place] [address] Jan, [facility] [address] [id number] [address] [place] [address], [place] [address] Jan, [facility] [address] [id number] [address] [place] [address], [place] [address] Jan, [facility] [address] [id number] [address] [place] [address], [place] [address] Jan, [facility] [address] [id number] [address] [place] [address], [place] [address] Jan, [facility] [address] [id number] [address] [place] [address], [place] [address] Jan, [facility] [address] [id number] [address] [place] [address], [place] [address] Jan, [facility] [address] [id number] [address] [place] [address], [place] [address] Jan, [facility] [address] [id number] [address] [place] [address], [place] [address] May, [facility] [address] [id number] [address] [place] [address], [place] [address] May, [facility] [address] [id number] [address] [place] [address], [place] [address] 14 May, 2013 [facility] [address] [id number] [address] [place] [address] 13 May, 2013 [facility] [address] [id number] [address] [place] [address] May, [facility] [address] [id number] [address] [place] [address] Jan, [facility] [address] [id number] [address] [place] [address] Jan, [facility] [address] [id number] [address] [place] [address] Jan, [facility] [address] [id number] [address] [place] [address] Jan, [facility] [address] [id number] [address] [place] [address] Jan, [facility] [address] [id number] [address] [place] [address] Jan, [facility] [address] [id number] [address] [place] [address] Jan, [facility] [address] [id number] [address] [place] [address] Jan, [facility] [address] [id number] [address] [place] [address] May, [facility] [address] [id number] [address] [place] [address] May, [facility] [address] [id number] [address] [place] [address] May, [facility] [address] [id number] [address] [place] [address] May, [facility] [address] [id number] [address] [place] [address] May, IMMUNIZATIONS No Known Immunizations SOCIAL HISTORY Never Assessed REASON FOR VISIT PLAN OF CARE VITAL SIGNS MEDICATIONS No Known Medications RESULTS No Results PROCEDURES Procedure Date Ordered Result Body Site TEST FOR BLOOD, FECES Feb 22, 2014 INSTRUCTIONS MEDICATIONS ADMINISTERED No Known Medications MEDICAL (GENERAL) HISTORY Type Description Date Medical History bipolar disorder Medical History depression Medical History glaucoma Medical History mental retardation Surgical History Kidney surgery 1976 Surgical History Eye surgery for glaucoma 2004
--- OUTSIDE RECORDS SUMMARY | 2019-07-23 21:02 | XMS REPORT | Summary of Care ---
Author Author [facility] Organization [facility] Address Unknown Phone Unavailable Encounter [facility] RAMA Cervantes [id number] Date(s): 11/12/16 - 11/12/16 [facility] [address] [address] Final: Panophthalmitis (acute), right eye Final: [...]
--- OUTSIDE RECORDS SUMMARY | 2019-07-23 21:02 | XMS REPORT ---
Author Author Jim CARRASQUILLO Organization [facility] Address [address] [place] [address] Care Team Providers Care Pool Attendant Name Role Phone RUDY CARRASQUILLO Unavailable PROBLEMS Type Condition ICD9-CM Code HPO88-TP Code Onset Dates Condition S tatus SNOMED Code Problem Gastroesophageal reflux disease without esophagitis K21.9 Active 844127900 Problem Anxiety F41.9 Active 29578567 Problem Seasonal allergic rhinitis, unspecified allergic rhinitis trigger J30.2 Active 206746695 ALLERGIES No Information ENCOUNTERS Encounter Location Date Diagnosis [facility] [address] [id number] [address] [place] [address] Oct, Eczema, unspecified type L30 .9 and Morbid obesity E66.01 [place] [id number] [id number] [address] [place] [address] Sep, Medicare annual wellness vis it, initial Z00.00 ; Anxiety F41.9 ; Gastroesophageal reflux disease without esophagitis K21.9 and Seasonal allergic rhinitis, unspecified allergic rhinitis trigger J30.2 [place] [address] [id number] [address] [place] [address] 17 Jun, [address] [address] Jun, BMI 50.0-59.9, adult Z68.43 ; Gastroesophageal reflux disease without esophagitis K21.9 ; Family history of diabetes mellitus Z83.3 ; Family history of early CAD Z82.49 and Anxiety F41.9 [place] [address] [id number] [address] [place] [address] May, Seasonal allergic rhinitis, unspecified allergic rhinitis trigger J30.2 and Eustachian tube dysfunction, right H69.81 [facility] [address] [address] May, Seasonal allergic rhinitis, unspecified allergic rhinitis trigger J30.2 and Eustachian tube dysfunction, right H69.81 [facility] [address] [address] Dec, [place] [address] [address] Dec, Right shoulder injury, initi al encounter S49.91XA [place] [address] [address] Oct, [facility] [address] [address] Oct, Left otitis media, unspecifi ed chronicity, unspecified otitis media type H66.92 and Upper respiratory disease J39.9 [facility] [address] [address] Aug, Cough R05 [facility] [address] [address] May, Cough R05 and Fever R50.9 [place] [address] [address] Jun, [place] [address] [address] Jun, [place] [address] [address] May, [place] [address] [address] May, [place] [address] [address] May, [place] [address] [address] May, [facility] [address] [id number] [facility] [place] [address] Jan, [facility] [address] [id number] [address] [place] [address], [place] [address] Jan, [facility] [address] [id number] [address] [place] [address], [place] [address] Jan, [facility] [address] [id number] [address] [place] [address], [place] [address] Jan, [facility] [address] [id number] [address] [place] [address], [place] [address] Jan, [facility] [address] [id number] [address] [place] [address], [place] [address] Jan, [facility] [address] [id number] [address] [place] [address], [place] [address] Jan, [facility] [address] [id number] [address] [place] [address], [place] [address] Jan, [facility] [address] [id number] [address] [place] [address], [place] [address] Jan, [facility] [address] [id number] [address] [place] [address], [place] [address] Jan, [facility] [address] [id number] [address] [place] [address], [place] [address] Jan, [facility] [address] [id number] [address] [place] [address], [place] [address] Jan, [facility] [address] [id number] [address] [place] [address], [place] [address] 27 May, 2013 [facility] [address] [id number] [address] [place] [address], [place] [address] 27 May, 2013 [facility] [address] [id number] [address] [place] [address], [place] [address] 14 May, 2013 [facility] [address] [id number] [address] [place] [address] [address] May, [facility] [address] [id number] [address] [place] [address] May, [facility] [address] [id number] [address] [place] [address] Jan, [facility] [address] [id number] [address] [place] [address] Jan, [facility] [address] [id number] [address] [place] [address] Jan, [facility] [address] [id number] [address] [place] [address] Jan, [facility] [address] [id number] [address] [place] [address] Jan, [facility] [address] [id number] [address] [place] [address] Jan, [facility] [address] [id number] [address] [place] [address] Jan, [facility] [address] [id number] [address] [place] [address] Jan, [facility], [place] [address] [id number] [address] [place] [phone] May, [facility], [place] [address] [id number] [address] [place] [phone] May, [facility], [place] [address] [id number] [address] [place] [phone] May, [facility], [place] [address] [id number] [address] [place] [phone] May, [facility], [place] [address] [id number] [address] [place] [phone] May, IMMUNIZATIONS No Known Immunizations SOCIAL HISTORY Never Assessed REASON FOR VISIT PLAN OF CARE VITAL SIGNS MEDICATIONS No Known Medications RESULTS No Results PROCEDURES No Known procedures INSTRUCTIONS MEDICATIONS ADMINISTERED No Known Medications MEDICAL (GENERAL) HISTORY Type Description Date Medical History bipolar disorder Medical History depression Medical History glaucoma Medical History mental retardation Surgical History Kidney surgery 1976 Surgical History Eye surgery for glaucoma 2004
--- OUTSIDE RECORDS SUMMARY | 2019-07-23 21:02 | XMS REPORT ---
Author Author Jim Yee Organization [facility] Address [address] [place] [address] Care Team Providers Care Clothes Model Name Role Phone JESSICA Yee Unavailable PROBLEMS Type Condition ICD9-CM Code [id number] Code Onset Dates Condition S tatus SNOMED Code Problem Gastroesophageal reflux disease without esophagitis K21.9 Active 390870588 Problem Anxiety F41.9 Active 84333587 Problem Seasonal allergic rhinitis, unspecified allergic rhinitis trigger J30.2 Active 890022064 ALLERGIES No Information ENCOUNTERS Encounter Location Date Diagnosis [facility] [address] [facility] [id number] [address] [place] [address] Oct, Eczema, unspecified type L30 .[address] [facility] [address] [id number] [address] [place] [address] Sep, Medicare annual wellness vis it, initial Z00.00 ; Anxiety F41.9 ; Gastroesophageal reflux disease without esophagitis K21.9 and Seasonal allergic rhinitis, unspecified allergic rhinitis trigger J30.2 [facility] [address] [id number] [address] [place] [address] 17 Jun, 2017 [facility] [address] [id number] [address] [place] [address] Jun, BMI 50.0-59.9, adult Z68.43 ; Gastroesophageal reflux disease without esophagitis K21.9 ; Family history of diabetes mellitus Z83.3 ; Family history of early CAD Z82.[address] [facility] [address] [id number] [address] [place] [address] May, Seasonal allergic rhinitis, unspecified allergic rhinitis trigger J30.2 and Eustachian tube dysfunction, right H69.81 [facility] [address] [id number] [address] [place] [address] May, Seasonal allergic rhinitis, unspecified allergic rhinitis trigger J30.2 and Eustachian tube dysfunction, right H69.81 [facility] [address] [address] Dec, [facility] [address] [address] Dec, Right shoulder injury, initi al encounter S49.91XA [facility] [address] [address] Oct, [facility] [address] [address] Oct, Left otitis media, unspecifi ed chronicity, unspecified otitis media type H66.92 and Upper respiratory disease J39.9 [facility] [address] [address] Aug, Cough R05 [facility] [address] [address] May, Cough R05 [address] [facility] [address] [address] Jun, [facility] [address] [address] Jun, [facility] [address] [address] May, [facility] [address] [address] May, [facility] [address] [address] May, [facility] [address] [address] May, [facility] [address] [id number] [facility] [place] [address] Jan, [facility] [address] [id number] [address] [place] [address], [place] [address] Jan, [facility] [address] [id number] [address] [place] [address], [place] [address] Jan, [facility] [address] [id number] [address] [place] [address], [place] [address] Jan, [facility] [address] [id number] [address] [place] [address], [place] [address] Jan, [facility] [address] [id number] [address] [place] [address], [place] [address] Jan, [facility] [address] [id number] [address] [place] [address], [place] [address] Jan, [facility] [address] [id number] [address] [place] [address], [place] [address] Jan, [facility] [address] [id number] [address] [place] [address], [place] [address] Jan, [facility] [address] [id number] [address] [place] [address], [place] [address] Jan, [facility] [address] [id number] [address] [place] [address], [place] [address] Jan, [facility] [address] [id number] [address] [place] [address], [place] [address] Jan, [facility] [address] [id number] [address] [place] [address], [place] [address] May, [facility] [address] [id number] [address] [place] [address], [place] [address] May, [facility] [address] [id number] [address] [place] [address], [place] [address] 14 May, 2013 [facility] [address] [id number] [address] [place] [address] [address], [address] [facility] [address] [id number] [address] [place] [address] May, [facility] [address] [id number] [address] [place] [address] Jan, [facility] [address] [id number] [address] [place] [address] Jan, [facility] [address] [id number] [address] [place] [address] Jan, [facility] [address] [id number] [address] [place] [address] Jan, [facility] [address] [id number] [address] [place] [address] Jan, [facility] [address] [id number] [address] [place] [address] Jan, [facility] [address] [id number] [address] [place] [address] Jan, [facility] [address] [id number] [address] [place] [address] Jan, [facility] [address] [id number] [address] [place] [address] May, [facility] [address] [id number] [address] [place] [address] May, [facility] [address] [id number] [address] [place] [address] May, [facility] [address] [id number] [address] [place] [address] May, [facility] [address] [id number] [address] [place] [address] May, IMMUNIZATIONS No Known Immunizations SOCIAL HISTORY [...]
--- OUTSIDE RECORDS SUMMARY | 2019-07-23 21:02 | XMS REPORT ---
Author Author Jim GARCIA Organization [facility] Address [address] [place] [address] Care Team Providers Care Film Spooler Name Role Phone QUITA GARCIA Unavailable PROBLEMS Type Condition ICD9-CM Code [id number] Code Onset Dates Condition S tatus SNOMED Code Problem Gastroesophageal reflux disease without esophagitis K21.9 Active 641211295 Problem Anxiety F41.9 Active 21880058 Problem Seasonal allergic rhinitis, unspecified allergic rhinitis trigger J30.2 Active 069561688 ALLERGIES No Information ENCOUNTERS Encounter Location Date Diagnosis [facility] [address] [id number] [address] [place] [address] Mar, Bronchitis J40 [facility] [address] [address] Mar, [facility] [address] [place], [place] [id number] [address] [place] [address] Mar, Bronchitis J40 [facility] [address] [id number] [address] [place] [address] Oct, Eczema, unspecified type L30 .9 and Morbid obesity E66.01 [facility] [address] [place] [id number] [place] [address] Sep, Medicare annual wellness visit, initial Z00.00 ; Anxiety F41.9 ; Gastroesophageal reflux disease without esophagitis K21.9 and Seasonal allergic rhinitis, unspecified allergic rhinitis trigger J30.2 [facility] [address] [address] Jun, [address] [address] Jun, BMI 50.0-59.9, adult Z68.43 ; Gastroesop hageal reflux disease without esophagitis K21.9 ; Family history of diabetes mellitus Z83.3 ; Family history of early CAD Z82.49 and Anxiety F41.[address] [address] May, Seasonal allergic rhinitis, unspecified allergic rhinitis trigger J30.2 and Eustachian tube dysfunction, right H69.81 [facility] [address] [place] [address] May, Seasonal allergic rhinitis, unspecified allergic rhinitis trigger J30.2 and Eustachian tube dysfunction, right H69.[address] [address] Dec, [address] [address] Dec, Right shoulder injury, initial encounter S49.91XA [address] [address] Oct, [facility] [address] [address] Oct, Left otitis media, unspecifi ed chronicity, unspecified otitis media type H66.92 and Upper respiratory disease J39.9 [facility] [address] [address] Aug, Cough R05 [facility] [address] [address] May, Cough R05 and Fever R50.[address] [address] Jun, [address] [address] Jun, [address] [address] May, [address] [address] May, [facility] [address] [id number] [place] [address] May, [facility] [address] [id number] [place] [address] May, [facility] [address] [id number] [place] [address] Jan, [facility] [address] [id number] [place] [address] Jan, [facility] [address] [id number] [place] [address] Jan, [facility] [address] [id number] [place] [address] Jan, [facility] [address] [id number] [place] [address] Jan, [facility] [address] [id number] [place] [address] Jan, [facility] [address] [id number] [place] [address] Jan, [facility] [address] [id number] [place] [address] Jan, [facility] [address] [id number] [place] [address] Jan, [facility] [address] [id number] [place] [address] Jan, [facility] [address] [id number] [place] [address] Jan, [facility] [id number] [place] [address] Jan, [facility] [address] [id number] [place] [address] May, [facility] [address] [id number] [place] [address] May, [facility] [address] [id number] [place] [address] 14 May, 2013 [facility] [id number] [place] [address] 13 May, 2013 [facility] [address] [id number] [place] [address] 13 May, 2013 [facility] [id number] [place] [address] Jan, [facility] [id number] [place] [address] Jan, [facility] [id number] [place] [address] Jan, [facility] [id number] [place] [address] Jan, [facility] [id number] [place] [address] Jan, [facility] [id number] [place] [address] Jan, [facility] [id number] [place] [address] Jan, [facility] [id number] [place] [address] Jan, [facility] [id number] [place] [address] May, [facility] [id number] [place] [address] 05 May, 2011 [facility] [id number] [place] [address] May, [facility] [id number] [place] [address] May, [facility] [id number] [place] [address] 28 May, 2011 IMMUNIZATIONS No Known Immunizations SOCIAL HISTORY Never Assessed REASON FOR VISIT PLAN OF CARE VITAL SIGNS Height 66 in 2013-06-24 Weight 319 lbs 2013-06-24 Temperature 98 degrees Fahrenheit 2013-06-24 Heart Rate 70 bpm 2013-06-24 Respiratory Rate 20 2013-06-24 Blood pressure systolic 128 mmHg 2013-06-24 Blood pressure diastolic 70 mmHg 2013-06-24 MEDICATIONS Unknown Medications RESULTS No Results PROCEDURES Procedure Date Ordered Result Body Site URINALYSIS, AUTO, W/O SCOPE June 24, 2013 INSTRUCTIONS MEDICATIONS ADMINISTERED No Known Medications MEDICAL (GENERAL) HISTORY Type Description Date Medical History bipolar disorder Medical History depression Medical History glaucoma Medical History mental retardation Surgical History Kidney surgery 1976 Surgical History Eye surgery for glaucoma 2004
--- OUTSIDE RECORDS SUMMARY | 2019-07-23 21:02 | XMS REPORT | Continuity of Care Document ---
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 Morbid (severe) obesity due to excess calories Final 11/22 [facility] Body mass index (BMI) 45.0-49.9, adult Final 11/22 [facility] Medications Medication Details Route Status Patient Instructions Ordering Provider Order Date Source oxcarbazepine 600 MG Oral Tablet = 1 TAB, PO, BID (2 times a day), 0 Refill(s) Active 11/13/2016 [facility] DULoxetine 60 mg oral delayed release capsule 1 CAP, PO, Daily, 0 Refill(s) Active 11/13/2016 [facility] Allergies, Adverse Reactions, Alerts Substance Category Reaction Severity Reaction type Status Date Reported Comments Source penicillin Assertion Drug allergy Active [facility] Immunizations No Data Provided for This Section Results Order Name Results Value Reference Range Date Interpretation Comments Source C Surgical C Surgical
[facility]
[address] [place] [address]
[place] [address]

M i c r o b i o l o g y

PROCEDURE: Gram Stain
SOURCE: Fluid COLLECTED: 11/12/2016 23:50 CDT
BODY SITE: Eye Right RECEIVED: 11/13/2016 00:09 CDT
FREE TEXT SOURCE: STARTED: 11/13/2016 00:10 CDT

STAINS / PREPARATIONS

Gram Stain Report
Verified:11/13/2016 02:42 CDT
No organisms seen.
Few WBC
in concentrated smear

11/13/2016 02:42 CDT Gram Stain:
Test Performed at [facility], [address] [place] [address],
[place] [address].

____

PROCEDURE: Culture Surgical
SOURCE: Fluid COLLECTED: 11/12/2016 23:50 CDT
BODY SITE: Eye Right RECEIVED: 11/13/2016 00:09 CDT
FREE TEXT SOURCE: STARTED: 11/13/2016 00:09 CDT

FINAL REPORT

Final Report
Verified:11/23/2016 09:18 CDT
Many Streptococcus mitis

SUSCEPTIBILITY RESULTS
Streptococcus
mitis

MDIL MINT
Ampicillin <=0.25 S
Ceftriaxone <=0.12 S
Penicillin <=0.06 S
Vancomycin 0.5 S

M i c r o b i o l o g y

PROCEDURE: Culture Surgical
SOURCE: Fluid COLLECTED: 11/12/2016 23:50 CDT
BODY SITE: Eye Right R ECEIVED: 11/13/2016 00:09 CDT
FREE TEXT SOURCE: STARTED: 11/13/2016 00:09 CDT

S=Susceptible, I=Intermediate, R=Resistant, N/A=Not Applicable

11/15/2016 09:09 CDT Culture Surgical:
Test Performed at [facility], [address] [place] [address],
[place] [address].

<br/&am p;gt;

PROCEDURE: Culture Fungus
SOURCE: Fluid COLLECTED: 11/12/2016 23:50 CDT
BODY SITE: Eye Right RECEIVED: 11/13/2016 00:09 CDT
FREE TEXT SOURCE: STARTED: 11/13/2016 00:10 CDT

PRELIMINARY REPORT
& lt;br/>Preliminary Report
Verified:11/20/2016 19:00 CDT
No fungus isolated at 1 week.

11/20/2016 19:00 CDT Culture Fungus:
Test Performed at [facility], [address] [place] [address],
[place] [address].

< br/>

PROCEDURE: Culture Anaerobic
SOURCE: Fluid COLLECTED: 11/12/2016 23:50 CDT
BODY SITE: Eye Right RECEIVED: 11/13/2016 00:09 CDT
FREE TEXT SOURCE: STARTED: 11/13/2016 00:10 CDT

FINAL REPORT &a mp;lt;br/>
Final Report
Verified:11/23/2016 10:30 CDT
No anaerobic organisms isolated.

M i c r o b i o l o g y

PROCEDURE: Culture Anaerobic
SOURCE: Fluid COLLECTED: 11/12/2016 23:50 CDT
BODY SITE: Eye Right RECEIVED: 11/13/2016 00:09 CDT
FREE TEXT SOURCE: STARTED: 11/13/2016 00:10 CDT

11/16/2016 13:31 CDT Culture Anaerobic:
Test Performed at [facility], [address] [place] [address],
[place] [address].

____
11/12/2016 [facility] C AFB C AFB
[facility]
[address] [place] [address]
[facility], [place] [address]

M i c r o b i o l o g y

PROCEDURE: Culture AFB
SOURCE: Fluid COLLECTED: 11/12/2016 23:50 CDT
BODY SITE: Eye Right RECEIVED: 11/13/2016 00:09 CDT
FREE TEXT SOURCE: STARTED: 11/13/2016 00:09 CDT

STAINS / PREPARATIONS

AFB Stain
Verified:11/13/2016 16:33 CDT
No acid fast bacilli seen.

FINAL REPORT

Final Report
Verified:12/25/2016 19:00 CDT
No acid fast bacilli isolated at 6 weeks.

11/13/2016 16:33 CDT Culture AFB:
Test Performed at [facility], [address] [place] [address],
[facility], [place] [address].
<br/&a mp;gt;

11/12/2016 [facility] Gram Stain Gram Stain
[facility]
[address] [place] [address]
[place] [address]

M i c r o b i o l o g y

PROCEDURE: Gram Stain
SOURCE: Fluid COLLECTED: 11/12/2016 23:50 CDT
BODY SITE: Eye Right RECEIVED: 11/13/2016 00:09 CDT
FREE TEXT SOURCE: STARTED: 11/13/2016 00:10 CDT

STAINS / PREPARATIONS

Gram Stain Report
Verified:11/13/2016 02:42 CDT
No organisms seen.
Few WBC
in concentrated smear

11/13/2016 02:42 CDT Gram Stain:
Test Performed at [facility], [address] [place] [address],
[place] [address].

____

PROCEDURE: Culture Surgical
SOURCE: Fluid COLLECTED: 11/12/2016 23:50 CDT
BODY SITE: Eye Right RECEIVED: 11/13/2016 00:09 CDT
FREE TEXT SOURCE: STARTED: 11/13/2016 00:09 CDT

FINAL REPORT

Final Report
Verified:11/23/2016 09:18 CDT
Many Streptococcus mitis

SUSCEPTIBILITY RESULTS
Streptococcus
mitis

MDIL MINT
Ampicillin <=0.25 S
Ceftriaxone <=0.12 S
Penicillin <=0.06 S
Vancomycin 0.5 S

M i c r o b i o l o g y

PROCEDURE: Culture Surgical
SOURCE: Fluid COLLECTED: 11/12/2016 23:50 CDT
BODY SITE: Eye Right R ECEIVED: 11/13/2016 00:09 CDT
FREE TEXT SOURCE: STARTED: 11/13/2016 00:09 CDT

S=Susceptible, I=Intermediate, R=Resistant, N/A=Not Applicable

11/15/2016 09:09 CDT Culture Surgical:
Test Performed at [facility], [address] [place] [address],
[place] [place] [address].

<br/&am p;gt;

PROCEDURE: Culture Fungus
SOURCE: Fluid COLLECTED: 11/12/2016 23:50 CDT
BODY SITE: Eye Right RECEIVED: 11/13/2016 00:09 CDT
FREE TEXT SOURCE: STARTED: 11/13/2016 00:10 CDT

PRELIMINARY REPORT
& lt;br/>Preliminary Report
Verified:11/20/2016 19:00 CDT
No fungus isolated at 1 week.

11/20/2016 19:00 CDT Culture Fungus:
Test Performed at [facility], [address] [place] [address],
[place] [address].

< br/>

PROCEDURE: Culture Anaerobic
SOURCE: Fluid COLLECTED: 11/12/2016 23:50 CDT
BODY SITE: Eye Right RECEIVED: 11/13/2016 00:09 CDT
FREE TEXT SOURCE: STARTED: 11/13/2016 00:10 CDT

FINAL REPORT &a mp;lt;br/>
Final Report
Verified:11/23/2016 10:30 CDT
No anaerobic organisms isolated.

M i c r o b i o l o g y

PROCEDURE: Culture Anaerobic
SOURCE: Fluid COLLECTED: 11/12/2016 23:50 CDT
BODY SITE: Eye Right RECEIVED: 11/13/2016 00:09 CDT
FREE TEXT SOURCE: STARTED: 11/13/2016 00:10 CDT

11/16/2016 13:31 CDT Culture Anaerobic:
Test Performed at [facility], [address] [place] [address],
[place] [address].

____
11/12/2016 [facility] C Fungal C Fungal
[facility]
[address] [place] [address]
[place] [address]

M i c r o b i o l o g y

PROCEDURE: Gram Stain
SOURCE: Fluid COLLECTED: 11/12/2016 23:50 CDT
BODY SITE: Eye Right RECEIVED: 11/13/2016 00:09 CDT
FREE TEXT SOURCE: STARTED: 11/13/2016 00:10 CDT

STAINS / PREPARATIONS

Gram Stain Report
Verified:11/13/2016 02:42 CDT
No organisms seen.
Few WBC
in concentrated smear

11/13/2016 02:42 CDT Gram Stain:
Test Performed at [facility], [address] [place] [address],
[place] [address].

____

PROCEDURE: Culture Surgical
SOURCE: Fluid COLLECTED: 11/12/2016 23:50 CDT
BODY SITE: Eye Right RECEIVED: 11/13/2016 00:09 CDT
FREE TEXT SOURCE: STARTED: 11/13/2016 00:09 CDT

FINAL REPORT

Final Report
Verified:11/23/2016 09:18 CDT
Many Streptococcus mitis

SUSCEPTIBILITY RESULTS
Streptococcus
mitis

MDIL MINT
Ampicillin <=0.25 S
Ceftriaxone <=0.12 S
Penicillin <=0.06 S
Vancomycin 0.5 S

M i c r o b i o l o g y

PROCEDURE: Culture Surgical
SOURCE: Fluid COLLECTED: 11/12/2016 23:50 CDT
BODY SITE: Eye Right R ECEIVED: 11/13/2016 00:09 CDT
FREE TEXT SOURCE: STARTED: 11/13/2016 00:09 CDT

S=Susceptible, I=Intermediate, R=Resistant, N/A=Not Applicable

11/15/2016 09:09 CDT Culture Surgical:
Test Performed at [facility], [address] [place] [address],
[place] [address].

<br/&am p;gt;

PROCEDURE: Culture Fungus
SOURCE: Fluid COLLECTED: 11/12/2016 23:50 CDT
BODY SITE: Eye Right RECEIVED: 11/13/2016 00:09 CDT
FREE TEXT SOURCE: STARTED: 11/13/2016 00:10 CDT

FINAL REPORT

Final Report
Verified:12/11/2016 19:00 CDT
No fungus isolated at 4 weeks.

12/04/2016 19:00 CDT Culture Fungus:
Test Performed at [facility], [address] [place] [address]
[place] [address].

PROCEDURE: Culture Anaerobic
SOURCE: Fluid COLLECTED: 11/12/2016 23:50 CDT
BODY SITE: Eye Right RECEIVED: 11/13/2016 00:09 CDT
FREE TEXT SOURCE: STARTED: 11/13/2016 00:10 CDT

FINAL REPORT <br/&a mp;gt;
Final Report
Verified:11/23/2016 10:30 CDT
No anaerobic organisms isolated.

M i c r o b i o l o g y

PROCEDURE: Culture Anaerobic
SOURCE: Fluid COLLECTED: 11/12/2016 23:50 CDT
BODY SITE: Eye Right RECEIVED: 11/13/2016 00:09 CDT
FREE TEXT SOURCE: STARTED: 11/13/2016 00:10 CDT

11/16/2016 13:31 CDT Culture Anaerobic:
Test Performed at [facility], [address] [place] [address],
[place] [address].

____
11/12/2016 [facility] C ZIA LIZARRAGA
[facility]
[address] [place] [address]
[place] [address]

M i c r o b i o l o g y

PROCEDURE: Gram Stain
SOURCE: Fluid COLLECTED: 11/12/2016 23:50 CDT
BODY SITE: Eye Right RECEIVED: 11/13/2016 00:09 CDT
FREE TEXT SOURCE: STARTED: 11/13/2016 00:10 CDT

STAINS / PREPARATIONS

Gram Stain Report
Verified:11/13/2016 02:42 CDT
No organisms seen.
Few WBC
in concentrated smear

11/13/2016 02:42 CDT Gram Stain:
Test Performed at [facility], [address],
[place] [address].

____

PROCEDURE: Culture Surgical
SOURCE: Fluid COLLECTED: 11/12/2016 23:50 CDT
BODY SITE: Eye Right RECEIVED: 11/13/2016 00:09 CDT
FREE TEXT SOURCE: STARTED: 11/13/2016 00:09 CDT

FINAL REPORT

Final Report
Verified:11/23/2016 09:18 CDT
Many Streptococcus mitis

SUSCEPTIBILITY RESULTS
Streptococcus
mitis

MDIL MINT
Ampicillin <=0.25 S
Ceftriaxone <=0.12 S
Penicillin <=0.06 S
Vancomycin 0.5 S

M i c r o b i o l o g y

PROCEDURE: Culture Surgical
SOURCE: Fluid COLLECTED: 11/12/2016 23:50 CDT
BODY SITE: Eye Right R ECEIVED: 11/13/2016 00:09 CDT
FREE TEXT SOURCE: STARTED: 11/13/2016 00:09 CDT

S=Susceptible, I=Intermediate, R=Resistant, N/A=Not Applicable

11/15/2016 09:09 CDT Culture Surgical:
Test Performed at [facility], [address] [place] [address],
[facility], [place] [address].

<br/&am p;gt;

PROCEDURE: Culture Fungus
SOURCE: Fluid COLLECTED: 11/12/2016 23:50 CDT
BODY SITE: Eye Right RECEIVED: 11/13/2016 00:09 CDT
FREE TEXT SOURCE: STARTED: 11/13/2016 00:10 CDT

PRELIMINARY REPORT
& lt;br/>Preliminary Report
Verified:11/20/2016 19:00 CDT
No fungus isolated at 1 week.

11/20/2016 19:00 CDT Culture Fungus:
Test Performed at [facility], [address] [place] [address],
[place] [address].

< br/>

PROCEDURE: Culture Anaerobic
SOURCE: Fluid COLLECTED: 11/12/2016 23:50 CDT
BODY SITE: Eye Right RECEIVED: 11/13/2016 00:09 CDT
FREE TEXT SOURCE: STARTED: 11/13/2016 00:10 CDT

FINAL REPORT &a mp;lt;br/>
Final Report
Verified:11/23/2016 10:30 CDT
No anaerobic organisms isolated.

M i c r o b i o l o g y

PROCEDURE: Culture Anaerobic
SOURCE: Fluid COLLECTED: 11/12/2016 23:50 CDT
BODY SITE: Eye Right RECEIVED: 11/13/2016 00:09 CDT
FREE TEXT SOURCE: STARTED: 11/13/2016 00:10 CDT

11/16/2016 13:31 CDT Culture Anaerobic:
Test Performed at [facility], [address] [place] [address],
[place] [address].

____
11/12/2016 [facility] No data available for this section No data available for this section [facility] Pathology Reports No Data Provided for This Section Diagnostic Reports No Data Provided for This Section Consultation Notes Results Value Date Source Operative Report DATE: 2016 SURGEON: CECY DAS MD PREOPERATIVE DIAGNOSIS: Acute endophthalmitis with secondary glaucoma, right eye. POSTOPERATIVE DIAGNOSIS: Acute endophthalmitis with secondary glaucoma, right eye. NAME OF OPERATION: 25-gauge vitrectomy and injection of int ravitreal antibiotics including vancomycin in 1 mg in 0.1 mL volume and ceftazidime in 2 mg in 0.1 mL volume. INDICATIONS FOR PROCEDURE: This 46-year-old individual presented with acute endophthalmitis and hand motion vision following a glaucoma surgery. He was found to have evidence of phlebitis and a secondary endophthalmitis. After discussing the risks, benefits, and alternatives of surgery including loss of vision, loss of the eye, no improvement, need for additional surgery, an informed consent was obtained. DESCRIPTION OF PROCEDURE: He was emergently taken to the operating room and placed under conscious sedation, where he received a retrobulbar block of bupivacaine and lidocaine mix. The eye was then prepped and draped in usual sterile fashion. A wire lid speculum was placed on the operative eye and the eye was opened for a standard 25-gauge vitrectomy. Infusion cannula was placed in the inferotemporal quadrant and visualized prior to turning on the infusion. Sclerotomies were made at the 2 and 10 o'clock hour position and a standard core vitrectomy was completed and it was sent for routine cultures. Once the core vitreous was removed, intravitreal antibiotics including vancomycin in 0.1 mL volume of 1 mg concentration and ceftazidime in 0.1 mL volume of 2 mg concentration was injected into the intravitreous cavity. The trocars were then removed. Ancef and dexamethasone were injected into the subconjunctival space and the eye was taped shut with TobraDex ointment, 2 eyes pads, and a Rodriguez shield. The patient tolerated the procedure well and was transferred to the recovery area in stable condition, where he will be discharged to follow up tomorrow. [facility]/[id number]/MODL /[id number] 11/13/2016 [facility] Discharge Summaries No Data Provided for This Section History and Physicals No Data Provided for This Section Vital Signs Vital Sign Value Date Comments Source NIBP MAP Calc 102 11/13/2016 [facility] er Vital Signs Status/Type Post p rocedure (11/12/16 11:55 PM) 11/13/2016 [facility] NIBP MAP 92 mm[Hg] 11/13/2016 [facility] Inet NIBP Systolic 150 mm[Hg] 11/13/2016 [facility] Inet NIBP Diastolic 78 mm[Hg] 11/13/2016 [facility] Heart Rate 92 bpm 11/13/2016 [facility] Temp Method Temporal (11/12/16 11:45 PM) 11/13/2016 [facility] Temperature 99.2 [degF] 11/13/2016 [facility] NIBP Alarms set and on Yes ( 11:00 PM) 11/13/2016 [facility] BP Cuff Size Large (11/12/16 11 :00 PM) 11/13/2016 [facility] BP Location Arm, left (11/12/16 11:00 PM) 11/13/2016 [facility] Respiratory Rate 18 br/min 11/13/2016 [facility] Encounters Location Location Details Encounter Type Encounter Number Reason For Visit Attending Provider ADM Date DC Date Status Source [id number] JASON DAS MD 11/12/2016 11/12/2016 Active [facility] ssion 006 [id number] EYE (VISUAL CHANGES) QUITA ROSS MD 11/12/2016 Active [facility] Procedures Procedure Code Date Perfomer Comments Source Eye Vitrectomy Mini<sup>1</sup> 11/13/2016 auto-populated from documented surgical case [facility] Plan of Care No Data Provided for This Section Social History No Data Provided for This Section Assessment and Plan No Data Provided for This Section Family History No Data Provided for This Section Advance Directives No Data Provided for This Section Functional Status No Data Provided for This Section
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
[2019-07-23] MEDS ORDERED: LACTATED RINGERS 1,000 ML IV ONE (21:22)
--- NOTE | 2019-07-23 21:39 | ED General ---
General Chief Complaint: Male Reproductive Stated Complaint: TESTICAL DISCOLORATION Source of Information: Patient Exam Limitations: No Limitations History of Present Illness Date Seen by Provider: Jul 23, 2019 Time Seen by Provider: 21:15 Initial Comments Here with report of right scrotal swelling. Seen at [facility] today and had ultrasound. There findings were that has was soft tissue infection and recommended that he go to the hospital for further evaluation. He did not want to do that. They placed him on Levaquin for the infection with return precautions for worsening pain, swelling or redness. All of those have occurred since leaving [facility] about 4 hours ago. He has had urination 1 and [facility] home. He is able to have normal bowel movements and last one was this morning. No reported fevers. Has only one functioning kidney as the other one was removed when he was a child. Does have MR and mental health disorders but otherwise denies medical problems. Timing/Duration: 2-3 Days, Getting Worse Severity: Moderate Modifying Factors: worse with Movement; improves with Rest Associated Systoms: No Chest Pain, No Cough, No Fever/Chills, No Nausea/Vomiting, No Shortness of Air, No Weakness Allergies and Home Medications Allergies Coded Allergies: Penicillins (Verified Allergy, Unknown, 12/01/18) Home Medications Brimonidine Tartrate/Timolol 5 Ml Drops, 1 DROP OU DAILY, (Reported) Duloxetine HCl 60 Mg Capsule.dr, 60 MG PO DAILY, (Reported) Duloxetine HCl 30 Mg Capsule.dr, 30 MG PO DAILY, (Reported) Latanoprost 2.5 Ml Drops, 1 DROPS OU DAILY, (Reported) Union-3/Dha/Epa/Fish Oil 1,000 Mg Capsule, 1,000 MG PO BID, (Reported) Oxcarbazepine 600 Mg Tablet, 1,500 MG PO DAILY, (Reported) TAKE 2.5 OF 600MG TABS Patient Home Medication List Home Medication List Reviewed: Yes Review of Systems Review of Systems Constitutional: No chills, No fever EENTM: no symptoms reported Respiratory: No cough, No short of breath Cardiovascular: No chest pain, No palpitations Gastrointestinal: No abdominal pain, No nausea, No vomiting Genitourinary: see HPI, pain, other (scrotal swelling and discoloration) Musculoskeletal: no symptoms reported Skin: see HPI, change in color, other (and thickening to the right scrotum) Psychiatric/Neurological: See HPI; Denies Headache, Denies Weakness All Other Systems Reviewed Negative Unless Noted: Yes Past Cgqljfw-Ymhvrs-Kadzsa Hx Past Med/Social Hx: Reviewed Nursing Past Med/Soc Hx Patient Social History Alcohol Use: Denies Use Recreational Drug Use: No Smoking Status: Never a Smoker Recent Hopitalizations: No Seasonal Allergies Seasonal Allergies: No Past Medical History Surgeries: Yes (KIDNEY) Respiratory: No Cardiac: No Neurological: Yes (PSYCH PROBLEMS) Developmental Disorder Gastrointestinal: No Musculoskeletal: No Endocrine: No HEENT: No Psychosocial: Yes ADD/ADHD, Anxiety, Bipolar, Personality Disorder, Depression Integumentary: No Blood Disorders: No Family Medical History Reviewed Nursing Family Hx Physical Exam-Suspected Sepsis Physical Exam Vital Signs Vital Signs - First Documented 07/23/19 21:09 Temp 37.3 Pulse 106 Resp 20 B/P (MAP) 145/83 (103) O2 Delivery Room Air Capillary Refill : Height, Weight, BMI Height: 5'6.00" Weight: 330lbs. 0.0oz. 149.342452sy; 52.00 BMI Method:Stated General Appearance: No Apparent Distress, WD/WN, Obese HEENT: PERRL/EOMI, Pharynx Normal Neck: Non Tender, Supple Respiratory: Lungs Clear, Normal Breath Sounds Cardiovascular: No Murmur, Tachycardia Gastrointestinal: Non Tender, Soft Genital/Rectal: Tenderness, Other (swollen right scrotum with discoloration and deep red color. Does have skin thickening and changes to the groin area consistent with folliculitis and yeast infection.) Back: Normal Inspection, No CVA Tenderness, No Vertebral Tenderness Extremity: Normal Range of Motion, Non Tender Neurologic/Psychiatric: Alert, Oriented x3 Skin: warm/dry, other (erythematous, warm and thickened skin to the right scrotum. Redness in the groin especially on the right. Skin changes consistent with yeast infection and few areas of folliculitis specially along the right upper leg groin area.) Focused Exam Lactate Level 07/23/19 21:40: Lactic Acid Level 1.36 Lactic Acid Level Laboratory Tests Test 07/23/19 21:40 Lactic Acid Level 1.36 MMOL/L (0.50-2.00) Progress/Results/Core Measures Suspected Sepsis SIRS Temperature: Pulse: Respiratory Rate: Laboratory Tests 07/23/19 21:40: White Blood Count 15.5H Blood Pressure / Mean: 07/23/19 21:40: Lactic Acid Level 1.36 Laboratory Tests 07/23/19 21:40: Creatinine 1.03, INR Comment 1.0, Platelet Count 309, Total Bilirubin 0.4 Results/Orders Lab Results Laboratory Tests Test 07/23/19 21:40 07/23/19 22:20 Range/Units White Blood Count 15.5 H 4.3-11.0 10^3/uL Red Blood Count 4.84 4.35-5.85 10^6/uL Hemoglobin 12.6 L 13.3-17.7 G/DL Hematocrit 40 40-54 % Mean Corpuscular Volume 82 80-99 FL Mean Corpuscular Hemoglobin 26 25-34 PG Mean Corpuscular Hemoglobin Concent 32 32-36 G/DL Red Cell Distribution Width 15.4 H 10.0-14.5 % Platelet Count 309 130-400 10^3/uL Mean Platelet Volume 9.0 7.4-10.4 FL Neutrophils (%) (Auto) 65 42-75 % Lymphocytes (%) (Auto) 20 12-44 % Monocytes (%) (Auto) 13 H 0-12 % Eosinophils (%) (Auto) 1 0-10 % Basophils (%) (Auto) 0 0-10 % Neutrophils # (Auto) 10.1 H 1.8-7.8 X 10^3 Lymphocytes # (Auto) 3.2 1.0-4.0 X 10^3 Monocytes # (Auto) 2.0 H 0.0-1.0 X 10^3 Eosinophils # (Auto) 0.2 0.0-0.3 10^3/uL Basophils # (Auto) 0.0 0.0-0.1 10^3/uL Neutrophils % (Manual) 66 % Lymphocytes % (Manual) 22 % Monocytes % (Manual) 11 % Eosinophils % (Manual) 1 % Band Neutrophils % Anisocytosis SLIGHT Macrocytosis SLIGHT Prothrombin Time 13.6 12.2-14.7 SEC INR Comment 1.0 0.8-1.4 Activated Partial Thromboplast Time 36 H 24-35 SEC Sodium Level 138 135-145 MMOL/L Potassium Level 3.7 3.6-5.0 MMOL/L Chloride Level 104 98-107 MMOL/L Carbon Dioxide Level 21 21-32 MMOL/L Anion Gap 13 5-14 MMOL/L Blood Urea Nitrogen 12 7-18 MG/DL Creatinine 1.03 0.60-1.30 MG/DL Estimat Glomerular Filtration Rate > 60 BUN/Creatinine Ratio 12 Glucose Level 81 70-105 MG/DL Lactic Acid Level 1.36 0.50-2.00 MMOL/L Calcium Level 9.0 8.5-10.1 MG/DL Corrected Calcium 9.2 8.5-10.1 MG/DL Total Bilirubin 0.4 0.1-1.0 MG/DL Aspartate Amino Transf (AST/SGOT) 17 5-34 U/L Alanine Aminotransferase (ALT/SGPT) 18 0-55 U/L Alkaline Phosphatase 71 40-136 U/L C-Reactive Protein High Sensitivity 15.25 H 0.00-0.50 MG/DL Total Protein 7.4 6.4-8.2 GM/DL Albumin 3.8 3.2-4.5 GM/DL Urine Color YELLOW Urine Clarity CLEAR Urine pH 6.0 5-9 Urine Specific [place] 1.020 1.016-1.022 Urine Protein 2+ H NEGATIVE Urine Glucose (UA) 2+ H NEGATIVE Urine Ketones NEGATIVE NEGATIVE Urine Nitrite POSITIVE H NEGATIVE Urine Bilirubin NEGATIVE NEGATIVE Urine Urobilinogen 0.2 < = 1.0 MG/DL Urine Leukocyte Esterase 2+ H NEGATIVE Urine RBC (Auto) 2+ H NEGATIVE Urine RBC 5-10 H /HPF Urine WBC TNTC H /HPF Urine Crystals NONE /LPF Urine Bacteria MODERATE H /HPF Urine Casts NONE /LPF Urine Mucus NEGATIVE /LPF Urine Culture Indicated CULTURE PENDING My Orders Orders - ZARIE ALFARO MD Cbc With Automated Diff (07/23/19 21:22) Comprehensive Metabolic Panel (07/23/19 21:22) Blood Culture (07/23/19 21:22) Sputum Culture (07/23/19 21:22) Urinalysis (07/23/19 21:22) Urine Culture (07/23/19 21:22) Protime With Inr (07/23/19 21:22) Partial Thromboplastin Time (07/23/19 21:22) Chest 1 View, Ap/Pa Only (07/23/19 21:22) Ed Iv/Invasive Line Start (07/23/19 21:22) Ed Iv/Invasive Line Start (07/23/19 21:22) Vital Signs Adult Sepsis Patie Q15M (07/23/19 21:22) O2 (07/23/19 21:22) Remove Rings In Anticipation O (07/23/19 21:22) Lactic Acid Analyzer (07/23/19 21:22) Hs C Reactive Protein (07/23/19 21:22) Lactated Ringers (Lr 1000 Ml Iv Solution (07/23/19 21:22) Manual Differential (07/23/19 21:40) Meropenem (Merrem 500 Mg) (07/23/19 23:00) Ct Abdomen/Pelvis Wo (07/23/19 22:17) Fluconazole 200 Mg/100 Ml (Diflucan Iv) (07/23/19 23:45) Vancomycin Injection (Vancomycin Injecti (07/23/19 23:45) Fluconazole 200 Mg/100 Ml (Diflucan Iv) (07/23/19 23:45) Medications Given in ED Current Medications Medications Dose Ordered Sig/Blanca Route Start Time Stop Time Status Last Admin Dose Admin Lactated Ringer's 1,000 ml @ 0 mls/hr Q0M ONCE IV 07/23/19 21:22 07/23/19 21:23 DC 07/23/19 21:42 999 MLS/HR Vital Signs/I&O 07/23/19 07/23/19 21:09 22:14 Temp 37.3 Pulse 106 Resp 20 B/P (MAP) 145/83 (103) O2 Delivery Room Air 07/24/19 00:00 Intake Total 10 ml Balance 10 ml Capillary Refill : Progress Note : Progress Note Seen and evaluated. IV, labs, blood cultures, lactic acid, UA and chest x-ray ordered. Concerns for scrotal infection. No blackened areas and it seems to be mostly right-sided with thickened, erythematous and tender skin. Patient was started on Levaquin and has had one dose. He only has one kidney. LR 1 L bolus. Monitor patient. 2218: CT abdomen and pelvis down through scrotum ordered after discussion with Dr. Eaton due to concerns about infectious process. Monitor patient. 2339: I have discussed the case with Dr. Eaton who accepts patient in consult and recommends meropenem, vancomycin and Diflucan antibiotics for current infection given CT findings and laboratory evaluation. I have discussed the case with Dr. Sher, on-call for community health and he accepts patient for admission, inpatient status. Findings and concerns discussed with patient and family who agree with plan. Antibiotics ordered for first dose and continued on floor. Diagnostic Imaging Diagonstic Imaging: Xray Plain Films/CT/US/NM/MRI: chest Comments No acute findings Reviewed: Reviewed by Me Diagonstic Imaging: CT Plain Films/CT/US/NM/MRI: abdomen, pelvis Comments Nonobstructing calculi within both kidneys. No hydronephrosis. Moderate wall thickening and edema seen within the scrotum which may represent nonspecific cellulitis. Simran's gangrene is not excluded. Note, however, soft tissue gas is not identified. Reviewed: Reviewed by Me Departure Communication (Admissions) Time/Spoke to Admitting Phy: 23:39 Time/Spoke to Consulting Phy: 23:30 Impression Primary Impression: Cellulitis of scrotum Additional Impression: Urinary tract infection Qualified Codes: N30.00 - Acute cystitis without hematuria Disposition: ADMITTED INPATIENT Condition: Stable Admissions Decision to Admit Reason: Admit from ER (General) Decision to Admit/Date: Jul 23, 2019 Time/Decision to Admit Time: 23:30 Departure-Patient Inst. Referrals: [facility] (PCP/Family) Primary Care Physician ZAIRE ALFARO MD Jul 23, 2019 21:39
[2019-07-23 21:54] LABS: BASOPHILS % (AUTO) 0 % (0-10); EOSINOPHILS # (AUTO) 0.2 10^3/uL (0.0-0.3); EOSINOPHILS % (AUTO) 1 % (0-10); HEMATOCRIT 40 % (40-54); HEMOGLOBIN 12.6 G/DL (13.3-17.7); LYMPHOCYTES # (AUTO) 3.2 X 10^3 (1.0-4.0); LYMPHOCYTES % (AUTO) 20 % (12-44); MEAN CORPUSCULAR HEMOGLOBIN 26 PG (25-34); MEAN CORPUSCULAR HGB CONC 32 G/DL (32-36); MEAN CORPUSCULAR VOLUME 82 FL (80-99); MONOCYTES % (AUTO) 13 % (0-12); NEUTROPHILS # (AUTO) 10.1 X 10^3 (1.8-7.8); NEUTROPHILS % (AUTO) 65 % (42-75); PLATELET COUNT 309 10^3/uL (130-400); RED CELL DISTRIBUTION WIDTH 15.4 % (10.0-14.5); WHITE BLOOD COUNT 15.5 10^3/uL (4.3-11.0)
[2019-07-23 22:04] LABS: ALBUMIN 3.8 GM/DL (3.2-4.5); CHLORIDE 104 MMOL/L (98-107); POTASSIUM 3.7 MMOL/L (3.6-5.0); SODIUM 138 MMOL/L (135-145)
[2019-07-23 22:07] LABS: GLUCOSE 81 MG/DL (70-105); PROTHROMBIN TIME PATIENT 13.6 SEC (12.2-14.7); TOTAL PROTEIN 7.4 GM/DL (6.4-8.2)
[2019-07-23 22:08] LABS: CARBON DIOXIDE 21 MMOL/L (21-32)
[2019-07-23 22:09] LABS: BILIRUBIN,TOTAL 0.4 MG/DL (0.1-1.0)
[2019-07-23 22:10] LABS: ALKALINE PHOSPHATASE 71 U/L (40-136); CREATININE SERUM 1.03 MG/DL (0.60-1.30); GFR ESTIMATED > 60
[2019-07-23 22:11] LABS: BUN/CREATININE RATIO 12
[2019-07-23 22:13] LABS: ALANINE AMINOTRANSFERASE 18 U/L (0-55)
[2019-07-23 22:36] LABS: NEUTROPHILS % (MANUAL) 66 %
[2019-07-23 22:37] LABS: ANISOCYTOSIS SLIGHT; EOSINOPHILS % (MANUAL) 1 %; LYMPHOCYTES % (MANUAL) 22 %; MONOCYTES % (MANUAL) 11 %
[2019-07-23 22:41] LABS: BILIRUBIN,URINE NEGATIVE (NEGATIVE); CLARITY,URINE CLEAR; COLOR,URINE YELLOW; GLUCOSE, URINE (UA) 2+ (NEGATIVE); KETONES,URINE NEGATIVE (NEGATIVE); LEUKOCYTE ESTERASE ,URINE 2+ (NEGATIVE); NITRITE,URINE POSITIVE (NEGATIVE); PROTEIN,URINE 2+ (NEGATIVE)
[2019-07-23 22:56] LABS: BACTERIA,URINE MODERATE /HPF; WBC,URINE TNTC /HPF
[2019-07-23] MEDS ORDERED: MEROPENEM 500 MG in WATER (STERILE) FOR INJECTION 10 ML IV SCH (23:00)
[2019-07-23] MEDS ORDERED: FLUCONAZOLE 200 MG/100 ML 50 ML, SYRINGE-IVPB 1 SYRINGE IV ONE ×2 (23:45)
[2019-07-23] MEDS ORDERED: FLUCONAZOLE 200 MG/100 ML 100 ML IV ONE (23:45)
[2019-07-23] MEDS: VANCOMYCIN INJECTION 1,000 MG in NS (IVPB) 250 ML IV SCH (23:55)
--- NOTE | 2019-07-24 00:20 | NUR ---
REPORT TO JAYA GRAY. NOTIFIED OF IV ANTIBIOTIC VANC 1G STARTED AND 2ND GRAM WELL DIFLUCAN IV TO BE GIVEN ON ADMIT.
[2019-07-24 00:30] VITALS: BP 121/77
--- NOTE | 2019-07-24 00:30 | NUR ---
Pt admitted to room 404-1, with an admitting diagnosis of Right Scrotal Cellulitis, on 07/24/19 from ED, accompanied by hospital staff. WILD IBANEZ was introduced to surroundings, call light, bed controls, phone, TV, temperature control, lights, meal times, smoking policy, visitor policy, side rail policy, bathrooms and showers. Patient Rights given to patient in the handbook. WILD IBANEZ verbalizes understanding that [facility] is not responsible for the loss or damage to any personal effects or valuables that are kept in the patients posession during their hospitalization. Patient was informed about the Rapid Response Team and its purpose.
--- NOTE | 2019-07-24 01:00 | NUR ---
THIS RN SPOKE WITH PT ABOUT HOME MEDICATIONS. PT STATED THAT HE TAKES SEVERAL MEDICATION AT HOME BUT CAN ONLY REMEMBER CYMBAL[place] AND IS NOT SURE WHAT DOSE HE TAKES. PT STATED THAT HIS WAS GOING TO BRING UP ALL OF HIS MEDICATION IN THE MORNING.
[2019-07-24] MEDS ORDERED: LACTATED RINGERS 1,000 ML IV ONE (01:10)
[2019-07-24] MEDS: LACTATED RINGERS 1,000 ML IV SCH ×2 (02:45→18:40)
[2019-07-24] MEDS ORDERED: fentaNYL INJECTION 100 MCG/2 ML AMP IV PRN (02:45)
[2019-07-24] MEDS ORDERED: ONDANSETRON 4 MG/2 ML (SDV) Z0FRAN IV PRN (02:45)
[2019-07-24] MEDS ORDERED: VANCOMYCIN 1 GM/NS 250 ML IVPB IV ONE ×2 (03:00)
--- NOTE | 2019-07-24 03:15 | NUR ---
THIS RN CALLED DOWN TO ER AND SPOKE WITH JAYA WHITE FOR CLARIFICATION R/T ER ORDERS RECEIVED FOR PT'S DIET. PT'S DIET CLARIFIED CLEAR LIQUID DIET AT THIS TIME.
[2019-07-24 04:00] VITALS: BP 131/64
[2019-07-24] MEDS ORDERED: VANCOMYCIN 1000 MG/VIAL ONE (04:09)
[2019-07-24] MEDS ORDERED: NS (IVPB) 250 ML ONE (04:09)
[2019-07-24] MEDS: VANCOMYCIN INJECTION 1,000 MG in NS (IVPB) 250 ML IV SCH (04:28)
[2019-07-24 04:38] LABS: BASOPHILS % (AUTO) 0 % (0-10); EOSINOPHILS # (AUTO) 0.2 10^3/uL (0.0-0.3); EOSINOPHILS % (AUTO) 2 % (0-10); HEMATOCRIT 37 % (40-54); HEMOGLOBIN 11.8 G/DL (13.3-17.7); LYMPHOCYTES # (AUTO) 2.5 X 10^3 (1.0-4.0); LYMPHOCYTES % (AUTO) 21 % (12-44); MEAN CORPUSCULAR HEMOGLOBIN 26 PG (25-34); MEAN CORPUSCULAR HGB CONC 32 G/DL (32-36); MEAN CORPUSCULAR VOLUME 82 FL (80-99); MEAN PLATELET VOLUME 8.9 FL (7.4-10.4); MONOCYTES # (AUTO) 1.2 X 10^3 (0.0-1.0); MONOCYTES % (AUTO) 10 % (0-12); NEUTROPHILS # (AUTO) 8.2 X 10^3 (1.8-7.8); NEUTROPHILS % (AUTO) 68 % (42-75); PLATELET COUNT 264 10^3/uL (130-400); RED CELL DISTRIBUTION WIDTH 15.3 % (10.0-14.5); WHITE BLOOD COUNT 12.2 10^3/uL (4.3-11.0)
[2019-07-24 04:52] LABS: ALBUMIN 3.4 GM/DL (3.2-4.5)
[2019-07-24 04:53] LABS: CHLORIDE 105 MMOL/L (98-107); POTASSIUM 3.8 MMOL/L (3.6-5.0); SODIUM 139 MMOL/L (135-145)
[2019-07-24 04:54] LABS: CALCIUM 8.5 MG/DL (8.5-10.1)
[2019-07-24 04:55] LABS: GLUCOSE 95 MG/DL (70-105); TOTAL PROTEIN 6.5 GM/DL (6.4-8.2)
[2019-07-24 04:56] LABS: CARBON DIOXIDE 21 MMOL/L (21-32)
[2019-07-24 04:57] LABS: BILIRUBIN,TOTAL 0.4 MG/DL (0.1-1.0)
[2019-07-24 04:58] LABS: ALKALINE PHOSPHATASE 64 U/L (40-136)
[2019-07-24 04:59] LABS: CREATININE SERUM 0.89 MG/DL (0.60-1.30); GFR ESTIMATED > 60
[2019-07-24 05:00] LABS: BUN/CREATININE RATIO 13
[2019-07-24 05:02] LABS: ALANINE AMINOTRANSFERASE 16 U/L (0-55)
[2019-07-24] MEDS: MEROPENEM 500 MG/SWFI 10 ML IV PUSH IV SCH ×6 (06:03→18:44)
--- NOTE | 2019-07-24 06:28 | Diagnostic Imaging Report ---
PROCEDURE: CT abdomen and pelvis without contrast. TECHNIQUE: Multiple contiguous axial images were obtained through the abdomen and pelvis without the use of intravenous contrast. Auto Exposure Controls were utilized during the CT exam to meet ALARA standards for radiation dose reduction. INDICATION: Red and swollen testicles. History of kidney stones. COMPARISON: None. FINDINGS: The lung bases are clear. The liver, gallbladder, pancreas, spleen and adrenals are negative on this noncontrast exam. Nonobstructing renal stones in both kidneys measure up to 1.8 cm on the right and 0.8 cm on the left. No hydronephrosis. Bladder is unremarkable. Normal appendix. No free intraperitoneal air or fluid. No lymphadenopathy. No evidence of bowel obstruction. Diffuse soft tissue thickening throughout the scrotum. No soft tissue gas or discrete fluid collections are identified on this noncontrast exam. No acute osseous findings. IMPRESSION: 1. Marked soft tissue thickening throughout the scrotum. No discrete fluid collections are identified on this noncontrast exam. Although Simran's gangrene is not excluded, no soft tissue gas is identified at this time. 2. Large bilateral nonobstructing renal stones. No hydronephrosis. Dictated by: Dictated on workstation # [id number]
--- NOTE | 2019-07-24 06:39 | Diagnostic Imaging Report ---
EXAM: CHEST 1 VIEW, AP/PA ONLY INDICATION: Testicular swelling. COMPARISON: 05/06/2016. FINDINGS: Normal heart size and central pulmonary vascularity. No focal pulmonary opacity, pleural effusion or pneumothorax. No acute osseous findings. No significant change. IMPRESSION: No acute cardiopulmonary findings. Dictated by: Dictated on workstation # [id number]
[2019-07-24] MEDS ORDERED: VASOPRESSIN INJECTION 20 UNIT in NORMAL SALINE 100 ML IV SCH (07:18)
[2019-07-24] MEDS ORDERED: NOREPINEPHRINE 4 MG/250 ML 250 ML IV SCH (07:18)
[2019-07-24 07:27] VITALS: BP 124/78
[2019-07-24] MEDS ORDERED: EPINEPHrine 1 MG INJECTION 2 MG in NS (IVPB) 250 ML IV SCH (07:30)
--- NOTE | 2019-07-24 09:28 | NUR ---
DR WADE SAW PT ON ROUNDS THIS AM AND EXPLAINED NEED FOR HIM TO STAY INPT AT THIS TIME. DR WADE ALSO ORDERED LOVENOX 40 MG DAILY FOR DVT PRO/
[2019-07-24] MEDS ORDERED: PATIENT MAY USE OWN MEDS, ALL MC SCH (10:00)
[2019-07-24] MEDS ORDERED: BRIM5DRO OS (10:23)
[2019-07-24] MEDS ORDERED: OXCA600T10 PO ×2 (10:23)
[2019-07-24] MEDS ORDERED: LATA2.5D5 OS (10:25)
[2019-07-24] MEDS ORDERED: TAFL1DRO OS (10:44)
[2019-07-24] MEDS: ENOXAPARIN 40 MG/0.4 ML (LOVENOX) SYR SC SCH ×2 (11:01→21:24)
[2019-07-24] MEDS: OXCARBAZEPINE 600 MG TABLET PO SCH ×2 (11:02→21:25)
[2019-07-24] MEDS: DULOXETINE 60 MG CAPSULE PO SCH (11:03)
[2019-07-24] MEDS: DULoxetine 30 MG (CYMBALTA) CAP PO SCH (11:03)
[2019-07-24] MEDS: TIMOLOL MALEATE 0.5% 5 ML (TIMOPTIC) BTL OS SCH ×2 (11:04→21:25)
[2019-07-24] MEDS: BRIMONIDINE 0.2% (ALPHAGAN) OPHTH SOLN 5 ML BTL OS SCH ×2 (11:06→21:24)
--- NOTE | 2019-07-24 11:13 | History & Physical-Hospitalist ---
History of Present Illness HPI/Chief Complaint The patient is a 48-year-old white male who reports 3-4 days ago started noticing some right scrotal pain he developed progressive swelling and discomfort but denied chills fever or night sweats. He presented to [facility] where he was started on Levaquin. He took one dose yesterday had progressive swelling as the day went on and presented to the emergency room because of swelling and pain. He reports no past history of similar symptoms to suggest epididymitis or orchitis. He does have a past history of bilateral reportedly large kidney stones which required partial right nephrectomy during stone extraction many years ago. He did report some dysuria mild increase in frequency over the past several days without evidence for hematuria or any reported cloudiness in his urine. He hasn't noticed any change in his stream. Date Seen 07/24/19 Time Seen by a Provider: 08:30 Attending Physician Edwar Wade MD [place] [place] Referring Physician Date of Admission Jul 23, 2019 at 23:40 Home Medications & Allergies Home Medications Reviewed patient Home Medication Reconciliation performed by pharmacy medication reconciliations engineering lab technician and/or nursing. Patients Allergies have been reviewed. Allergies Allergies Coded Allergies Penicillins (Verified Allergy, Unknown, 12/01/18) Past Flnmkjp-Ebwbqq-Ejhmdg Hx Past Med/Social Hx: Reviewed Nursing Past Med/Soc Hx, Reviewed and Corrections made Patient Social History Alcohol Use: Denies Use Recreational Drug Use: No Smoking Status: Never a Smoker Recent Foreign Travel: No Contact w/other who traveled: No Recent Hopitalizations: No Recent Infectious Disease Expo: No Immunizations Up To Date Date of Pneumonia Vaccine: Dec 29, 2016 Seasonal Allergies Seasonal Allergies: No Past Medical History Neurological: Developmental Disorder Psychosocial: ADD/ADHD, Anxiety, Bipolar, Personality Disorder, Depression History of Blood Disorders: No Family History Reviewed Nursing Family Hx Review of Systems Constitutional: see HPI Physical Exam Physical Exam Vital Signs Vital Signs - First Documented 07/23/19 07/24/19 21:09 00:21 Temp 37.3 Pulse 106 Resp 20 B/P (MAP) 145/83 (103) Pulse Ox 95 O2 Delivery Room Air Capillary Refill : Less Than 3 Seconds Height, Weight, BMI Height: 5'6.00" Weight: 330lbs. 0.0oz. 149.623261sp; 47.37 BMI Method:Stated General Appearance: No Apparent Distress, Anxious, Obese Neck: Full Range of Motion, Normal Inspection, Non Tender Respiratory: Chest Non Tender, Lungs Clear, Normal Breath Sounds, No Accessory Muscle Use, No Respiratory Distress Cardiovascular: Regular Rate, Rhythm, No Edema, No Gallop, No JVD, No Murmur, Normal Peripheral Pulses Gastrointestinal: Normal Bowel Sounds, No Organomegaly, No Pulsatile Mass, Non Tender, Soft Genital/Rectal: Other (Right scrotal erythema and swelling noted with evidence for a large right epididymal mass tender questionable testicular involvement on the right as well. The left side unremarkable testicles descended bilateral circumcised male no evidence for right inguinal adenopathy noted) Extremity: Normal Capillary Refill, Normal Inspection, Normal Range of Motion, Non Tender, No Calf Tenderness, No Pedal Edema Neurologic/Psychiatric: Alert Skin: Normal Color, Warm/Dry Results Results/Procedures Labs Laboratory Tests 07/23/19 21:40 07/24/19 04:10 Patient resulted labs reviewed. Assessment/Plan Admission Diagnosis A/P 1. Urinary tract infection with right sided epididymitis and possible orchitis. No evidence for necrotizing fasciitis just see reactive changes from underlying epididymitis at this point. The patient is low risk for methicillin resistant staph we will await urine culture results and continue meropenem. Will discontinue vancomycin. Will initiate scrotal support and consult urology. 2. Likely high functioning MR. 3. Morbid obesity. Admission Status: Inpatient Order (span 2 midnights) Reason for Inpatient Admission: See admission diagnosis Assessment and Plan See admission diagnosis Clinical Quality Measures DVT/VTE Risk/Contraindication: Risk Factor Score Per Nursin RFS Level Per Nursing on Admit: 4+=Very High EDWAR WADE MD Jul 24, 2019 11:13
[2019-07-24 11:27] VITALS: BP 124/84
--- NOTE | 2019-07-24 12:10 | Consultation - Surgery ---
History of Present Illness History of Present Illness Patient Consulted On(mesfin/time) 07/24/19 9:03 Date Seen by Provider: Jul 24, 2019 Time Seen by Provider: 09:03 History of Present Illness consult requested by Dr. Grider for scrotal cellulitis Patient is a 48 year old male. Last 3-4 days began having increased swelling and tenderness to scrotal area. Continued to increase and was seen at [facility] yesterday and started on Levaquin and he states had u/s done there. Continued to worsen so went to ER last night. Patient some burning with urination. Nothing has made better, nothing really makes worse. Denies n/v fever sweats chills shortness of breath or chest pain at this time. Patient had ct scan done that i reviewed as well: 1. Marked soft tissue thickening throughout the scrotum. No discrete fluid collections are identified on this noncontrast exam. Although Simran's gangrene is not excluded, no soft tissue gas is identified at this time. 2. Large bilateral nonobstructing renal stones. No hydronephrosis. Allergies and Home Medications Allergies Coded Allergies: Penicillins (Verified Allergy, Unknown, 12/01/18) Home Medications Brimonidine Tartrate/Timolol 5 Ml Drops, 1 DROP OS BID Prescribed by: RESHMA WALLACE on 07/24/19 1023 Duloxetine HCl 60 Mg Capsule.dr, 60 MG PO DAILY, (Reported) Duloxetine HCl 30 Mg Capsule.dr, 30 MG PO DAILY, (Reported) [place]-3/Dha/Epa/Fish Oil 1,000 Mg Capsule, 1,000 MG PO BID, (Reported) Oxcarbazepine 600 Mg Tablet, 900 MG PO DAILY TAKE 1.5 OF 600MG TABS in morning Prescribed by: RESHMA WALLACE on 07/24/19 1023 Oxcarbazepine 600 Mg Tablet, 600 MG PO HS Prescribed by: RESHMA WALLACE on 07/24/19 1023 Tafluprost/Pf 1 Each Droperette, 1 DROP OS HS Prescribed by: RESHMA WALLACE on 07/24/19 1044 Patient Home Medication List Home Medication List Reviewed: Yes Past Vlqdamt-Aocqjg-Lntwfc Hx Patient Social History Alcohol Use: Denies Use Recreational Drug Use: No Smoking Status: Never a Smoker Recent Foreign Travel: No Contact w/Someone Who Travel: No Recent Infectious Disease Expo: No Recent Hopitalizations: No Immunizations Up To Date Date of Pneumonia Vaccine: Dec 29, 2016 Seasonal Allergies Seasonal Allergies: No Surgeries History of Surgeries: Yes (KIDNEY SX CHILD) Respiratory History of Respiratory Disorde: No Cardiovascular History of Cardiac Disorders: No Neurological History of Neurological Disord: Yes (PSYCH PROBLEMS) Neurological Disorders: Developmental Disorder Gastrointestinal History of Gastrointestinal Di: No Musculoskeletal History of Musculoskeletal Dis: No Endocrine History of Endocrine Disorders: No HEENT History of HEENT Disorders: No Psychosocial History of Psychiatric Problem: Yes Behavioral Health Disorders: ADD/ADHD, Anxiety, Bipolar, Personality Disorder, Depression Integumentary History of Skin or Integumenta: No Blood Transfusions History of Blood Disorders: No Reviewed Nursing Assessment Reviewed/Agree w Nursing PMH: Yes Family Medical History Significant Family History: No Pertinent Family Hx Review of Systems-General Constitutional: No chills, No diaphoresis Respiratory: No cough, No dyspnea on exertion Cardiovascular: No chest pain Gastrointestinal: No abdominal pain, No constipation Genitourinary: pain (scrotal) Musculoskeletal: No back pain, No joint pain Skin: change in color (scrotum) Psychiatric/Neurological: No Symptoms Reported Physical Exam-General Problems Physical Exam Vital Signs Vital Signs - First Documented 07/23/19 07/24/19 21:09 00:21 Temp 37.3 Pulse 106 Resp 20 B/P (MAP) 145/83 (103) Pulse Ox 95 O2 Delivery Room Air Capillary Refill : Less Than 3 Seconds General Appearance: WD/WN, no apparent distress HEENT: PERRL/EOMI, normal ENT inspection Neck: non-tender, supple Respiratory: chest non-tender, no respiratory distress, no accessory muscle use Cardiovascular: regular rate, rhythm Gastrointestinal: non tender, soft, no organomegaly Rectal: deferred Genital/Rectal: tenderness (scrotal, right firm swollen testicle/epididymis, tender to palpation, scrotum erythematous) Back: no CVA tenderness Extremities: non-tender, normal inspection Neurologic/Psychiatric: service cleaner II-XII nml as tested, no motor/sensory deficits, alert, normal mood/affect, oriented x 3 Skin: No normal color (erythematous scrotum); warm/dry Lymphatic: no adenopathy Data Review Labs Laboratory Tests 07/23/19 21:40: White Blood Count 15.5H, Red Blood Count 4.84, Hemoglobin 12.6L, Hematocrit 40, Mean Corpuscular Volume 82, Mean Corpuscular Hemoglobin 26, Mean Corpuscular Hemoglobin Concent 32, Red Cell Distribution Width 15.4H, Platelet Count 309, Mean Platelet Volume 9.0, Neutrophils (%) (Auto) 65, Lymphocytes (%) (Auto) 20, Monocytes (%) (Auto) 13H, Eosinophils (%) (Auto) 1, Basophils (%) (Auto) 0, Neutrophils # (Auto) 10.1H, Lymphocytes # (Auto) 3.2, Monocytes # (Auto) 2.0H, Eosinophils # (Auto) 0.2, Basophils # (Auto) 0.0, Neutrophils % (Manual) 66, Lymphocytes % (Manual) 22, Monocytes % (Manual) 11, Eosinophils % (Manual) 1, Band Neutrophils , Anisocytosis SLIGHT, Macrocytosis SLIGHT, Prothrombin Time 13.6, INR Comment 1.0, Activated Partial Thromboplast Time 36H, Sodium Level 138, Potassium Level 3.7, Chloride Level 104, Carbon Dioxide Level 21, Anion Gap 13, Blood Urea Nitrogen 12, Creatinine 1.03, Estimat Glomerular Filtration Rate > 60, BUN/Creatinine Ratio 12, Glucose Level 81, Lactic Acid Level 1.36, Calcium Level 9.0, Corrected Calcium 9.2, Total Bilirubin 0.4, Aspartate Amino Transf (AST/SGOT) 17, Alanine Aminotransferase (ALT/SGPT) 18, Alkaline Phosphatase 71, C-Reactive Protein High Sensitivity 15.25H, Total Protein 7.4, Albumin 3.8 07/23/19 22:20: Urine Color YELLOW, Urine Clarity CLEAR, Urine pH 6.0, Urine Specific [place] 1.020, Urine Protein 2+H, Urine Glucose (UA) 2+H, Urine Ketones NEGATIVE, Urine Nitrite POSITIVEH, Urine Bilirubin NEGATIVE, Urine Urobilinogen 0.2, Urine Leukocyte Esterase 2+H, Urine RBC (Auto) 2+H, Urine RBC 5-10H, Urine WBC TNTCH, Urine Crystals NONE, Urine Bacteria MODERATEH, Urine Casts NONE, Urine Mucus NEGATIVE, Urine Culture Indicated CULTURE PENDING 07/24/19 04:10: White Blood Count 12.2H, Red Blood Count 4.54, Hemoglobin 11.8L, Hematocrit 37L, Mean Corpuscular Volume 82, Mean Corpuscular Hemoglobin 26, Mean Corpuscular Hemoglobin Concent 32, Red Cell Distribution Width 15.3H, Platelet Count 264, Mean Platelet Volume 8.9, Neutrophils (%) (Auto) 68, Lymphocytes (%) (Auto) 21, Monocytes (%) (Auto) 10, Eosinophils (%) (Auto) 2, Basophils (%) (Auto) 0, Neutrophils # (Auto) 8.2H, Lymphocytes # (Auto) 2.5, Monocytes # (Auto) 1.2H, Eosinophils # (Auto) 0.2, Basophils # (Auto) 0.0, Sodium Level 139, Potassium Level 3.8, Chloride Level 105, Carbon Dioxide Level 21, Anion Gap 13, Blood Urea Nitrogen 12, Creatinine 0.89, Estimat Glomerular Filtration Rate > 60, BUN/Creatinine Ratio 13, Glucose Level 95, Calcium Level 8.5, Corrected Calcium 9.0, Total Bilirubin 0.4, Aspartate Amino Transf (AST/SGOT) 14, Alanine Aminotransferase (ALT/SGPT) 16, Alkaline Phosphatase 64, Total Protein 6.5, Albumin 3.4 Assessment/Plan Assessment/Plan Assessment/Plan right epididymitis/orchitis scrotal cellulitis, do not feel he has necrotizing fasciitis urology consult continue abx continue to monitor tried to obtain u/s from [facility] but unavailable at this time Clinical Quality Measures DVT/VTE Risk/Contraindication: Risk Factor Score Per Nursin RFS Level Per Nursing on Admit: 4+=Very High ISSA GALVEZ DO Jul 24, 2019 12:10
--- NOTE | 2019-07-24 15:19 | CONSULTATION REPORT ---
DATE OF SERVICE: 07/24/2019 ATTENDING PHYSICIAN: Dr. Sher, [facility]. SUMMARY: After reviewing the patient's records, x-rays, interviewing him and examining him, this is a 48-year-old morbidly obese patient who was admitted with right acute epididymo-orchitis. There was some concern about Simran's, concern about testicular abscess. I reviewed his CT scan, his labs. This condition has been going on for 3-4 days and gradually increased. He was seen at the [facility] and was put on Levaquin. He took 1 dose but did not get better, presented to the emergency room and subsequently admitted. PHYSICAL EXAMINATION: GENERAL: The patient is in no acute distress. He is sitting on his chair and reading. GENITOURINARY: On examination, phallus circumcised, adequate meatus. The left testicle epididymis is normal. The scrotum has some edema. Definitely, no cellulitis. Definitely, no Simran's gangrene. The right epididymis is firm and tender and swollen. The right testicle is normal. IMPRESSION: Acute epididymitis, doubt abscess. Definitely, no Simran's gangrene or cellulitis. Just edema of the scrotal wall, which is expected. PLAN: Switch Rocephin to Zosyn. Continue with vancomycin. No need for more antibiotic types. Patient is improving. We will continue to follow him clinically. We will see him back tomorrow. We will apply scrotal support, ice as needed and add an anti-inflammatory instead of the Tylenol. The plan was fully explained to the patient. Job ID: [id number] DocumentID: [id number] Dictated Date: 07/24/2019 11:03:10 Client Services Representative Date: 07/24/2019 12:51:06 Dictated By: CHUY WORKMAN MD
[2019-07-24 16:04] VITALS: BP 136/70
[2019-07-24] MEDS ORDERED: VANCOMYCIN 1500 MG/NS 500 ML IVPB IV SCH ×2 (16:30)
[2019-07-24 20:45] VITALS: BP 144/79
[2019-07-24] MEDS ORDERED: FLUCONAZOLE 100 MG/50 ML IVPB IV SCH ×2 (21:00)
[2019-07-24] MEDS: OMEGA 3 (FISH OIL) 1000 MG CAP PO SCH (21:23)
[2019-07-24] MEDS: ACETAMINOPHEN 500 MG TAB (TYLENOL) PO PRN (21:24)
[2019-07-24] MEDS: TAFLUPROST 0.0015% OS SCH (21:25)
[2019-07-25 00:07] VITALS: BP 152/79
[2019-07-25] MEDS: MEROPENEM 500 MG/SWFI 10 ML IV PUSH IV SCH ×8 (00:49→18:13)
[2019-07-25 05:01] LABS: BASOPHILS % (AUTO) 0 % (0-10); EOSINOPHILS # (AUTO) 0.3 10^3/uL (0.0-0.3); EOSINOPHILS % (AUTO) 2 % (0-10); HEMATOCRIT 38 % (40-54); HEMOGLOBIN 11.8 G/DL (13.3-17.7); LYMPHOCYTES # (AUTO) 2.3 X 10^3 (1.0-4.0); LYMPHOCYTES % (AUTO) 20 % (12-44); MEAN CORPUSCULAR HEMOGLOBIN 26 PG (25-34); MEAN CORPUSCULAR HGB CONC 31 G/DL (32-36); MEAN CORPUSCULAR VOLUME 82 FL (80-99); MONOCYTES # (AUTO) 0.8 X 10^3 (0.0-1.0); MONOCYTES % (AUTO) 7 % (0-12); NEUTROPHILS # (AUTO) 7.9 X 10^3 (1.8-7.8); NEUTROPHILS % (AUTO) 70 % (42-75); PLATELET COUNT 298 10^3/uL (130-400); RED CELL DISTRIBUTION WIDTH 15.5 % (10.0-14.5); WHITE BLOOD COUNT 11.3 10^3/uL (4.3-11.0)
[2019-07-25] MEDS: LACTATED RINGERS 1,000 ML IV SCH ×2 (06:01→08:33)
[2019-07-25 07:20] VITALS: BP 141/90
[2019-07-25] MEDS: DULOXETINE 60 MG CAPSULE PO SCH (08:15)
[2019-07-25] MEDS: OMEGA 3 (FISH OIL) 1000 MG CAP PO SCH ×2 (08:25→21:08)
[2019-07-25] MEDS: OXCARBAZEPINE 600 MG TABLET PO SCH ×2 (08:26→21:09)
[2019-07-25] MEDS: ACETAMINOPHEN 500 MG TAB (TYLENOL) PO PRN (08:26)
[2019-07-25] MEDS: DULoxetine 30 MG (CYMBALTA) CAP PO SCH (08:27)
[2019-07-25] MEDS: BRIMONIDINE 0.2% (ALPHAGAN) OPHTH SOLN 5 ML BTL OS SCH ×2 (08:28→21:09)
[2019-07-25] MEDS: TIMOLOL MALEATE 0.5% 5 ML (TIMOPTIC) BTL OS SCH ×2 (08:28→21:09)
[2019-07-25] MEDS: ENOXAPARIN 40 MG/0.4 ML (LOVENOX) SYR SC SCH ×2 (08:34→21:09)
[2019-07-25] MEDS ORDERED: LATANOPROST 0.005% (XALATAN) OPHTH SOLN 2.5 ML OU SCH (09:00)
[2019-07-25] MEDS ORDERED: OXCARBAZEPINE PO SCH (09:00)
[2019-07-25] MEDS ORDERED: NON-FORMULARY MEDICATION 1 EA EA (Brimonidine Tartrate/Timolol (Combigan Eye Drops) 1 DROP OU SCH (09:00)
--- NOTE | 2019-07-25 11:00 | NUR ---
DR WADE CAME BY ON ROUNDS. HE ORDERED TO D/C IV FLUIDS AND TO SALINE LOCK HIS IV, ALONG WITH ADVANCING DIET TO REGULAR, SINCE HE IS TOLERATING CLEAR LIQUIDS. HE ALSO ORDERED FOR HIM TO START TAKING IBUPROFEN 600 MG Q8H PRN PAIN. NO NEW ORDERS FROM DR GALVEZ OR DR WORKMAN.
--- NOTE | 2019-07-25 11:12 | Progress Note - Urology ---
Progress Note-Urology Progress Notes/Assess & Plan Progress/Assessment & Plan IMPROVING SUBJECTIVELY AND OBJECTIVELY. KEEP SAME Final Diagnosis ACUTE RT EPIDIDYMITIS (IMPROVING) CHUY WORKMAN MD Jul 25, 2019 11:12
--- NOTE | 2019-07-25 11:57 | Progress Note - Hospitalist ---
Subjective HPI/CC On Admission Date Seen by Provider: Jul 25, 2019 Time Seen by Provider: 09:00 The patient is a 48-year-old white male who reports 3-4 days ago started noticing some right scrotal pain he developed progressive swelling and discomfort but denied chills fever or night sweats. [facility]. He took one dose yesterday had progressive swelling as the day went on and presented to the emergency room because of swelling and pain. He reports no past history of similar symptoms to suggest epididymitis or orchitis. He does have a past history of bilateral reportedly large kidney stones which required partial right nephrectomy during stone extraction many years ago. He did report some dysuria mild increase in frequency over the past several days without evidence for hematuria or any reported cloudiness in his urine. He hasn't noticed any change in his stream. Subjective/Events-last exam Patient reports less scrotal pain and reports swelling is about the same. He denies night sweats chills or fever with normal appetite. Focused Exam Lactate Level 07/23/19 21:40: Lactic Acid Level 1.36 Objective Exam Vital Signs Vital Signs Date Time Temp Pulse Resp B/P (MAP) Pulse Ox O2 Delivery O2 Flow Rate FiO2 07/25/19 08:00 Room Air 07/25/19 07:20 37.6 103 24 141/90 (107) 95 Capillary Refill : Less Than 3 Seconds General Appearance: No Apparent Distress, Obese Respiratory: Chest Non Tender, Lungs Clear, Normal Breath Sounds, No Accessory Muscle Use, No Respiratory Distress Cardiovascular: Regular Rate, Rhythm, No Edema, No Gallop, No JVD, No Murmur, Normal Peripheral Pulses Genital/Rectal: Other (significantly less erythema noted of the scrotum no erythema involving the thighs there is not as much induration of the scrotum right epididymal mass the same although not as tender to palpation. No inguinal adenopathy noted) Results/Procedures Lab Laboratory Tests 07/25/19 03:57 Patient resulted labs reviewed. Assessment/Plan Assessment and Plan Assess & Plan/Chief Complaint A/P 1. Right epididymitis without evidence for sepsis. The patient currently is only on meropenem. He was not switched to Zosyn as he reports a penicillin allergy. I discontinued vancomycin after 1 dose thinking staff would be unlikely although the patient is growing staph aureus in his urine sensitivity pending. I will not switch back to vancomycin as clinically the patient is responding. As long as he is methicillin sensitive would consider switch to Ancef IV. Clinical Quality Measures DVT/VTE Risk/Contraindication: Risk Factor Score Per Nursin RFS Level Per Nursing on Admit: 4+=Very High EDWAR WADE MD Jul 25, 2019 11:57
[2019-07-25] MEDS: IBUPROFEN 600 MG (MOTRIN) TAB PO PRN ×2 (13:17→21:08)
[2019-07-25 15:29] VITALS: BP 174/73
[2019-07-25] MEDS: TAFLUPROST 0.0015% OS SCH (21:09)
--- NOTE | 2019-07-25 21:25 | Progress Note - Surgery ---
Subjective Date Seen by a Provider: Jul 25, 2019 Time Seen by a Provider: 10:54 Subjective/Events-last exam Patient feeling better. Scrotal swelling about the same. Maybe a little less tender. Denies n/v fever sweats chills shortness of breath or chest pain. WBC trending down. Focused Exam Lactate Level 07/23/19 21:40: Lactic Acid Level 1.36 Objective Exam Vital Signs Date Time Temp Pulse Resp B/P (MAP) Pulse Ox O2 Delivery O2 Flow Rate FiO2 07/25/19 20:00 Room Air 07/25/19 15:29 36.8 103 24 174/73 (106) 94 Room Air 07/25/19 08:00 Room Air 07/25/19 07:20 37.6 103 24 141/90 (107) 95 Room Air 07/25/19 00:07 37.4 103 22 152/79 (103) 94 Room Air I & O 07/25/19 07:00 Intake Total 2995 ml Balance 2995 ml Capillary Refill : Less Than 3 Seconds General Appearance: No Apparent Distress, Obese HEENT: PERRL/EOMI, Pharynx Normal Neck: Full Range of Motion, Normal Inspection, Non Tender Respiratory: Chest Non Tender, No Accessory Muscle Use, No Respiratory Distress Cardiovascular: Regular Rate, Rhythm, Normal Peripheral Pulses Gastrointestinal: non tender, soft, no organomegaly Extremity: Normal Capillary Refill, Normal Inspection, Normal Range of Motion, Non Tender, No Calf Tenderness, No Pedal Edema Neurologic/Psychiatric: Alert Skin: Warm/Dry, Other (scrotal erythema less intense, still swollen) Lymphatic: No Adenopathy Other comments right testicle/epididymis still enlarged/firm and tender to palpation Results Lab Laboratory Tests 07/25/19 03:57: White Blood Count 11.3H, Red Blood Count 4.58, Hemoglobin 11.8L, Hematocrit 38L, Mean Corpuscular Volume 82, Mean Corpuscular Hemoglobin 26, Mean Corpuscular Hemoglobin Concent 31L, Red Cell Distribution Width 15.5H, Platelet Count 298, Mean Platelet Volume 9.0, Neutrophils (%) (Auto) 70, Lymphocytes (%) (Auto) 20, Monocytes (%) (Auto) 7, Eosinophils (%) (Auto) 2, Basophils (%) (Auto) 0, Neutrophils # (Auto) 7.9H, Lymphocytes # (Auto) 2.3, Monocytes # (Auto) 0.8, Eosinophils # (Auto) 0.3, Basophils # (Auto) 0.0 Microbiology 07/23/19 Urine Culture - Preliminary, Resulted Staphylococcus aureus 07/23/19 Blood Culture - Preliminary, Resulted No growth Assessment/Plan Assessment/Plan Assessment/Plan right epididymitis/orchitis scrotal cellulitis, do not feel he has necrotizing fasciitis continue abx and conservative measures. Discussed with patient's plan per patient request will sign off, call if needed. Clinical Quality Measures DVT/VTE Risk/Contraindication: Risk Factor Score Per Nursin RFS Level Per Nursing on Admit: 4+=Very High ISSA GALVEZ DO Jul 25, 2019 21:24
[2019-07-26 00:30] VITALS: BP 138/80
[2019-07-26] MEDS: MEROPENEM 500 MG/SWFI 10 ML IV PUSH IV SCH ×10 (00:40→21:43)
[2019-07-26 07:43] VITALS: BP 124/84
[2019-07-26] MEDS: BRIMONIDINE 0.2% (ALPHAGAN) OPHTH SOLN 5 ML BTL OS SCH ×2 (08:39→21:44)
[2019-07-26] MEDS: DULoxetine 30 MG (CYMBALTA) CAP PO SCH (08:40)
[2019-07-26] MEDS: OXCARBAZEPINE 600 MG TABLET PO SCH ×2 (08:40→21:44)
[2019-07-26] MEDS: OMEGA 3 (FISH OIL) 1000 MG CAP PO SCH ×2 (08:40→21:43)
[2019-07-26] MEDS: TIMOLOL MALEATE 0.5% 5 ML (TIMOPTIC) BTL OS SCH ×2 (08:40→21:44)
[2019-07-26] MEDS: DULOXETINE 60 MG CAPSULE PO SCH (08:42)
--- NOTE | 2019-07-26 08:55 | Progress Note - Urology ---
Progress Note-Urology Progress Notes/Assess & Plan Progress/Assessment & Plan CONTINUES IMPROVING. RECOMMEND ONE MORE DAY OF IV ABX AND ONCE URINE C&S BACK PUT ON APPROPRIATE ABX PO FOR HOME, WITH REST, AND SCROTAL SUPPORT, WE WILL SEE HIM PRN Final Diagnosis ACUTE RT EPIDIDYMO ORCHITIS CHUY WORKMAN MD Jul 26, 2019 08:55
[2019-07-26] MEDS ORDERED: BRIMON0.2 OS (09:23)
[2019-07-26] MEDS ORDERED: OXCA600T3 PO ×2 (09:23)
[2019-07-26] MEDS ORDERED: TIMO5DRO5 OS (09:24)
--- NOTE | 2019-07-26 09:25 | NUR ---
SPOKE WITH THE PT, WENT THRU THE EXT MED HISTORY AND CALLED [facility] TO COMPLETE THE MED REC PT WAS ABLE TO VERIFY HIS MEDS WELL HOW/WHEN HE TAKES EACH. PT TAKES DULOXETINE 60MG AND 30MG ONCE DAILY (THE EXT MED HISTORY LOOKS LIKE HIS LAST FILL ON THE 30MG IS 2 CAPS DAILY- #90/45DS. I CALLED [facility] AND THEY SAID THEY DIRECTIONS FOR THE 30 MG IS 1 CAP DAILY ALONG WITH A 60MG) OTC MEDS: FISH OIL
[2019-07-26] MEDS: ENOXAPARIN 40 MG/0.4 ML (LOVENOX) SYR SC SCH ×2 (11:45→21:43)
--- NOTE | 2019-07-26 14:20 | Progress Note ---
Subjective Subjective/Events-last exam Afebrile, reports feeling okay, just hoping for scrotal swelling to go down. Focused Exam Lactate Level 07/23/19 21:40: Lactic Acid Level 1.36 Objective Exam Last Set of Vital Signs Vital Signs Date Time Temp Pulse Resp B/P (MAP) Pulse Ox O2 Delivery O2 Flow Rate FiO2 07/26/19 08:00 Room Air 07/26/19 07:43 36.8 92 20 124/84 (97) 95 Capillary Refill : Less Than 3 Seconds I&O Intake and Output 07/26/19 00:00 Intake Total 2295 ml Balance 2295 ml Intake Oral 2275 ml IV Total 20 ml # Voids 5 # Bowel Movements 2 General: Alert, No Acute Distress Lungs: Clear to Auscultation, Normal Air Movement Heart: Regular Rate, No Murmurs Other physical findings Scrotum with marked edema and moderate erythema Results/Procedures Lab Microbiology 07/23/19 Urine Culture - Final, Complete Staphylococcus aureus 07/23/19 Blood Culture - Preliminary, Resulted No growth Assessment/Plan Assessment/Plan (1) Epididymitis Status: Acute Assessment & Plan: On meropenem, improving. Appreciate Urology recommendations. (2) Urinary tract infection Status: Acute Assessment & Plan: Staph aureus MSSA Qualifiers: Qualified Codes: N30.00 - Acute cystitis without hematuria (3) DVT prophylaxis Status: Acute Assessment & Plan: Enoxaparin Clinical Quality Measures DVT/VTE Risk/Contraindication: Risk Factor Score Per Nursin RFS Level Per Nursing on Admit: 4+=Very High ADAM ESTRADA MD Jul 26, 2019 14:20
[2019-07-26 16:00] VITALS: BP 144/86
[2019-07-26] MEDS: IBUPROFEN 600 MG (MOTRIN) TAB PO PRN (21:42)
[2019-07-26] MEDS: TAFLUPROST 0.0015% OS SCH (21:45)
[2019-07-27 00:06] VITALS: BP 109/70
[2019-07-27 05:08] LABS: HEMOGLOBIN 11.3 G/DL (13.3-17.7); MEAN PLATELET VOLUME 8.7 FL (7.4-10.4); RED CELL DISTRIBUTION WIDTH 15.3 % (10.0-14.5); WHITE BLOOD COUNT 8.3 10^3/uL (4.3-11.0)
[2019-07-27] MEDS: MEROPENEM 500 MG/SWFI 10 ML IV PUSH IV SCH ×6 (05:55→18:28)
[2019-07-27 08:00] VITALS: BP 130/85
[2019-07-27] MEDS: BRIMONIDINE 0.2% (ALPHAGAN) OPHTH SOLN 5 ML BTL OS SCH (08:35)
[2019-07-27] MEDS: TIMOLOL MALEATE 0.5% 5 ML (TIMOPTIC) BTL OS SCH (08:35)
[2019-07-27] MEDS: DULoxetine 30 MG (CYMBALTA) CAP PO SCH (08:35)
[2019-07-27] MEDS: OMEGA 3 (FISH OIL) 1000 MG CAP PO SCH (08:36)
[2019-07-27] MEDS: OXCARBAZEPINE 600 MG TABLET PO SCH (08:36)
[2019-07-27] MEDS: ENOXAPARIN 40 MG/0.4 ML (LOVENOX) SYR SC SCH (08:36)
[2019-07-27] MEDS: ACETAMINOPHEN 500 MG TAB (TYLENOL) PO PRN (08:37)
[2019-07-27] MEDS: IBUPROFEN 600 MG (MOTRIN) TAB PO PRN (08:37)
[2019-07-27] MEDS: DULOXETINE 60 MG CAPSULE PO SCH (08:38)
--- NOTE | 2019-07-27 09:58 | Progress Note - Urology ---
Progress Note-Urology Progress Notes/Assess & Plan Progress/Assessment & Plan CONTINUES WELL. OK TO DISCHARGE ON BACTRIM DS AND REST. WILL SEE PRN Final Diagnosis RT ACUTE EPIDIDYMOORCHITIS CHUY WORKMAN MD Jul 27, 2019 09:58
[2019-07-27] MEDS ORDERED: SULF1TAB35 PO (10:59)
--- NOTE | 2019-07-27 11:02 | Discharge Summary ---
Discharge Summary Hospital Course Problems/Diagnosis: (1) Epididymitis Status: Acute Assessment & Plan: On meropenem, improving. Appreciate Urology recommendations. 07/26- discharged on Bactrim DS per Urology recs. (2) Urinary tract infection Status: Acute Assessment & Plan: Staph aureus MSSA Qualifiers: Qualified Codes: N30.00 - Acute cystitis without hematuria Hospital Course Date of Admission: Jul 23, 2019 at 23:40 Admission Diagnosis : Family Physician/[place] [place] Date of Discharge: 07/27/19 Discharge Diagnosis: See problem list Hospital Course: See problem list Labs and Pending Lab Test: Laboratory Tests 07/27/19 04:30: White Blood Count 8.3, Red Blood Count 4.41, Hemoglobin 11.3L, Hematocrit 36L, Mean Corpuscular Volume 83, Mean Corpuscular Hemoglobin 26, Mean Corpuscular Hemoglobin Concent 31L, Red Cell Distribution Width 15.3H, Platelet Count 296, Mean Platelet Volume 8.7 Microbiology 07/23/19 Urine Culture - Final, Complete Staphylococcus aureus 07/23/19 Blood Culture - Preliminary, Resulted No growth Home Meds Active Zioptan 0.0015% Eye Drops (Tafluprost/Pf) 1 Each Droperette 1 Drop OS HS Reported Timolol Maleate 0.5% (Timolol Maleate) 5 Ml Drops 1 Drop OS BID Trileptal (Oxcarbazepine) 600 Mg Tablet 900 Mg PO DAILY TAKES 1 & (600MG) TABS DAILY Trileptal (Oxcarbazepine) 600 Mg Tablet 600 Mg PO HS Brimonidine Tartrate 5 Ml Btl 1 Drop OS BID Cymbalta (Duloxetine HCl) 30 Mg Capsule.dr 30 Mg PO DAILY TAKES 60MG + 30MG TO EQUAL 90MG DAILY Duloxetine HCl 60 Mg Capsule.dr 60 Mg PO DAILY TAKES 60MG + 30MG TO EQUAL 90MG DAILY Fish Oil 1,000 mg Softgel ([place]-3/Dha/Epa/Fish Oil) 1,000 Mg Capsule 1,000 Mg PO BID Assessment/Pt DC Instructions Follow up with Rupert Joaquin on 07/29 at 10:40 am. Discharge Diet: Regular Diet Activity as Tolerated: Yes (use scrotal support and keep scrotum elevated as much as possible) Discharge Physical Examination Allergies: Coded Allergies: Penicillins (Verified Allergy, Unknown, 12/01/18) General Appearance: No Apparent Distress Respiratory: Lungs Clear, Normal Breath Sounds Cardiovascular: Regular Rate, Rhythm, No Murmur Skin: Other (right scrotum mildly erythematous, scrotum swollen, improved from previous) Copy Copies To 1: Rupert Joaquin APRN Clinical Quality Measures DVT/VTE Risk/Contraindication: Risk Factor Score Per Nursin RFS Level Per Nursing on Admit: 4+=Very High ADAM ESTRADA MD Jul 27, 2019 11:02
[2019-07-27 15:49] VITALS: BP 133/87
--- NOTE | 2019-07-27 20:00 | NUR ---
WILD IBANEZ demonstrates understanding of discharge instructions and accurately returns instructions upon questioning. Copy of Post-Discharge Instructions given to patient. WILD IBANEZ is able to manage continuing needs after discharge. Patients belongings returned to patient. Patient discharged from 404-1 on 07/27/191999. WILD IBANEZ left floor via wheelchair, accompanied by staff.
== END 2019-07-27 20:00 | disposition home or self-care (01) | DRG 728 ==
LOC: EDUNIT# 20:54 → ER 20:57 → 4TH 23:40
PROVIDERS: ADMIT Internal Medicine; ATTEND Family Medicine
DX: N45.3 Epididymo-orchitis (principal); N39.0 Urinary tract infection, site not specified; N50.89 Other specified disorders of the male genital organs; Z68.43 Body mass index [BMI] 50.0-59.9, adult; E66.01 Morbid (severe) obesity due to excess calories; F78 Other intellectual disabilities; F90.9 Attention-deficit hyperactivity disorder, unspecified type; F41.9 Anxiety disorder, unspecified; F31.9 Bipolar disorder, unspecified; F60.9 Personality disorder, unspecified; N20.0 Calculus of kidney; Z90.5 Acquired absence of kidney; B95.61 Methicillin susceptible Staphylococcus aureus infection as the cause of diseases classified elsewhere
CPT/HCPCS: 36415; 71045; 74176; 80053; 81000; 83605; 85007; 85025; 85027; 85610; 85730; 86141; 87040; 87077; 87088; 87186; 96361; 96365; 96375

== ENCOUNTER 2019-10-02 09:36 | Emergency (ER) | payer MEDICARE, MEDICAID ==
[~2019-10-02] VITALS: Ht 170.2 cm; Wt 136.9 kg
[~2019-10-02 09:36] MED LIST changes: +BRIM5DRO OS; +BRIMON0.2 OS; +LATA2.5D5 OS; +SULF1TAB35 PO; +TAFL1DRO OS; +TIMO5DRO5 OS
[2019-10-02] MEDS ORDERED: KETOROLAC 30 MG/ML VIAL IVP ONE (10:00)
--- NOTE | 2019-10-02 10:09 | ED GU-Male ---
General Chief Complaint: Male Reproductive Stated Complaint: TESTICLE SWELLING Nursing Triage Note: pt amb to rm 7 with complaint of testicle swelling. Source: patient Exam Limitations: no limitations History of Present Illness Date Seen by Provider: Oct 02, 2019 Time Seen by Provider: 09:47 Initial Comments Patient presents ER by private conveyance from home with chief complaint that since about 8:00 this morning he started experiencing swelling pain and redness in both of his testicles. He said this happened several months ago and he had stay in the hospital on antibiotics for orchitis. He's not having discharge or dysuria. No fevers chills nausea vomiting cough shortness of air. He has a history of psych problems with no significant medical problems. Follows with Rupert Joaquin. Patient denies being sexually active. No history of STDs. Allergies and Home Medications Allergies Coded Allergies: Penicillins (Verified Allergy, Unknown, 12/01/18) Home Medications Brimonidine Tartrate 5 Ml Btl, 1 DROP OS BID, (Reported) Duloxetine HCl 60 Mg Capsule.dr, 60 MG PO DAILY, (Reported) TAKES 60MG + 30MG TO EQUAL 90MG DAILY Duloxetine HCl 30 Mg Capsule.dr, 30 MG PO DAILY, (Reported) TAKES 60MG + 30MG TO EQUAL 90MG DAILY [place]-3/Dha/Epa/Fish Oil 1,000 Mg Capsule, 1,000 MG PO BID, (Reported) Oxcarbazepine 600 Mg Tablet, 600 MG PO HS, (Reported) Oxcarbazepine 600 Mg Tablet, 900 MG PO DAILY, (Reported) TAKES 1 & (600MG) TABS DAILY Sulfamethoxazole/Trimethoprim 1 Each Tablet, 1 EACH PO BID Prescribed by: ADAM ESTRADA on 07/27/19 1059 Tafluprost/Pf 1 Each Droperette, 1 DROP OS HS Prescribed by: RESHMA WALLACE on 07/24/19 1044 Timolol Maleate 5 Ml Drops, 1 DROP OS BID, (Reported) Patient Home Medication List Home Medication List Reviewed: Yes Review of Systems Review of Systems Constitutional: No chills, No diaphoresis EENTM: No ear discharge, No ear pain Respiratory: No cough, No short of breath Cardiovascular: No chest pain, No edema Gastrointestinal: No abdominal pain, No nausea Genitourinary: see HPI; denies burning, denies discharge, denies dysuria; pain Musculoskeletal: No back pain, No joint pain Skin: see HPI; No pruritus, No rash Past Inmqcga-Docqua-Pfkmcp Hx Patient Social History Alcohol Use: Denies Use Recreational Drug Use: No Smoking Status: Never a Smoker Recent Foreign Travel: No Contact w/Someone Who Travel: No Recent Infectious Disease Expo: No Recent Hopitalizations: No Immunizations Up To Date Date of Pneumonia Vaccine: Dec 29, 2016 Seasonal Allergies Seasonal Allergies: No Past Medical History Surgeries: Yes (KIDNEY SX CHILD) Respiratory: No Cardiac: No Neurological: Yes (PSYCH PROBLEMS) Developmental Disorder Gastrointestinal: No Musculoskeletal: No Endocrine: No HEENT: No Psychosocial: Yes ADD/ADHD, Anxiety, Bipolar, Personality Disorder, Depression Integumentary: No Blood Disorders: No Family Medical History No Pertinent Family Hx Physical Exam Vital Signs Vital Signs - First Documented 10/02/19 09:38 Temp 37.3 Pulse 101 Resp 22 B/P (MAP) 163/104 (123) Pulse Ox 94 O2 Delivery Room Air Capillary Refill : Less Than 3 Seconds Height, Weight, BMI Height: 5'6.00" Weight: 330lbs. 0.0oz. 149.076301cf; 47.00 BMI Method:Stated General Appearance: WD/WN, no apparent distress HEENT: PERRL/EOMI, normal ENT inspection, pharynx normal Neck: full range of motion, supple, normal inspection Cardiovascular: normal peripheral pulses, regular rate, rhythm Respiratory: lungs clear, normal breath sounds, no respiratory distress, no accessory muscle use Genital/Rectal: other (penis unremarkable without any discharge or ulcers. Scrotum is erythematous, swollen about the size of a referred with palpable, tender testicles bilaterally. Cremasteric reflex bilaterally intact.) Extremities: normal range of motion, normal capillary refill Neurologic/Psychiatric: alert, normal mood/affect, oriented x 3 Skin: normal color, warm/dry Progress/Results/Core Measures Suspected Sepsis Recent Fever Within 48 Hours: No Infection Criteria Present: None New/Unexplained Altered Menta: No Sepsis Screen: No Definite Risk SIRS Temperature: Pulse: 101 Respiratory Rate: 22 Laboratory Tests 10/02/19 10:29: White Blood Count 10.8 Blood Pressure 163 /104 Mean: 123 Laboratory Tests 10/02/19 10:29: Creatinine 1.09, Platelet Count 237, Total Bilirubin 0.4 Results/Orders Lab Results Laboratory Tests Test 10/02/19 10:29 10/02/19 12:15 Range/Units White Blood Count 10.8 4.3-11.0 10^3/uL Red Blood Count 5.00 4.35-5.85 10^6/uL Hemoglobin 12.8 L 13.3-17.7 G/DL Hematocrit 40 40-54 % Mean Corpuscular Volume 81 80-99 FL Mean Corpuscular Hemoglobin 26 25-34 PG Mean Corpuscular Hemoglobin Concent 32 32-36 G/DL Red Cell Distribution Width 15.9 H 10.0-14.5 % Platelet Count 237 130-400 10^3/uL Mean Platelet Volume 8.9 7.4-10.4 FL Neutrophils (%) (Auto) 66 42-75 % Lymphocytes (%) (Auto) 21 12-44 % Monocytes (%) (Auto) 10 0-12 % Eosinophils (%) (Auto) 2 0-10 % Basophils (%) (Auto) 0 0-10 % Neutrophils # (Auto) 7.1 1.8-7.8 X 10^3 Lymphocytes # (Auto) 2.3 1.0-4.0 X 10^3 Monocytes # (Auto) 1.1 H 0.0-1.0 X 10^3 Eosinophils # (Auto) 0.3 0.0-0.3 10^3/uL Basophils # (Auto) 0.0 0.0-0.1 10^3/uL Sodium Level 137 135-145 MMOL/L Potassium Level 3.7 3.6-5.0 MMOL/L Chloride Level 104 98-107 MMOL/L Carbon Dioxide Level 21 21-32 MMOL/L Anion Gap 12 5-14 MMOL/L Blood Urea Nitrogen 11 7-18 MG/DL Creatinine 1.09 0.60-1.30 MG/DL Estimat Glomerular Filtration Rate > 60 BUN/Creatinine Ratio 10 Glucose Level 121 H 70-105 MG/DL Calcium Level 8.7 8.5-10.1 MG/DL Corrected Calcium 8.9 8.5-10.1 MG/DL Total Bilirubin 0.4 0.1-1.0 MG/DL Aspartate Amino Transf (AST/SGOT) 15 5-34 U/L Alanine Aminotransferase (ALT/SGPT) 17 0-55 U/L Alkaline Phosphatase 78 40-136 U/L Total Protein 7.1 6.4-8.2 GM/DL Albumin 3.8 3.2-4.5 GM/DL Urine Color YELLOW Urine Clarity CLOUDY Urine pH 6.0 5-9 Urine Specific [place] 1.025 H 1.016-1.022 Urine Protein 2+ H NEGATIVE Urine Glucose (UA) NEGATIVE NEGATIVE Urine Ketones NEGATIVE NEGATIVE Urine Nitrite POSITIVE H NEGATIVE Urine Bilirubin NEGATIVE NEGATIVE Urine Urobilinogen 0.2 < = 1.0 MG/DL Urine Leukocyte Esterase 3+ H NEGATIVE Urine RBC (Auto) 3+ H NEGATIVE Urine RBC 10-25 H /HPF Urine WBC TNTC H /HPF Urine Crystals NONE /LPF Urine Bacteria TRACE /HPF Urine Casts NONE /LPF Urine Mucus NEGATIVE /LPF Urine Culture Indicated YES My Orders Orders - KELLY ORTIZ Ua Culture If Indicated (10/02/19 09:59) Cbc With Automated Diff (10/02/19 09:59) Comprehensive Metabolic Panel (10/02/19 09:59) Ketorolac Injection (Toradol Injection) (10/02/19 10:00) Levofloxacin 750 Mg/150 Ml Iv (Levaquin (10/02/19 10:15) Blood Culture (10/02/19 10:11) Ed Iv/Invasive Line Start (10/02/19 10:12) Ns Iv 1000 Ml (Sodium Chloride 0.9%) (10/02/19 10:12) Urine Culture (10/02/19 12:15) Medications Given in ED Current Medications Medications Dose Ordered Sig/Blanca Route Start Time Stop Time Status Last Admin Dose Admin Ketorolac Tromethamine 30 mg ONCE ONCE IVP 10/02/19 10:00 10/02/19 10:03 DC 10/02/19 10:35 30 MG Levofloxacin/ Dextrose 150 ml @ 100 mls/hr ONCE ONCE IV 10/02/19 10:15 10/02/19 11:44 DC 10/02/19 10:53 100 MLS/HR Vital Signs/I&O 10/02/19 10/02/19 09:38 13:00 Temp 37.3 37.0 Pulse 101 89 Resp 22 22 B/P (MAP) 163/104 (123) 132/75 (123) Pulse Ox 94 96 O2 Delivery Room Air Room Air Capillary Refill : Less Than 3 Seconds Blood Pressure Mean: 123 Progress Note : Time: 10:07 Progress Note Scrotal cellulitis versus orchitis. He hasn't tachycardia however he isn't quite a bit of pain so we'll treat his pain first. No fever. Check some labs give him Toradol and Levaquin. Departure Impression Primary Impression: Testicular/scrotal pain Disposition: XF SHT-TRM HOSP Condition: Stable Transfer Transfer Reason: Exceeds level of care (No US) Time Spoke to Accepting Phy: 11:55 Transfer Progress Notes 1150: Alexander: [facility] accepts the pt for ER-ER transfer for US scrotum. Transfer Time: 13:01 Transfer Facility: [facility] [place] Method of Transfer: Private Vehicle Departure-Patient Inst. Referrals: [facility] (PCP/Family) Primary Care Physician KELLY ORTIZ Oct 02, 2019 10:08
[2019-10-02] MEDS ORDERED: NS IV 1000 ML 1,000 ML IV SCH (10:12)
[2019-10-02] MEDS ORDERED: LEVOFLOXACIN 750 MG/150 ML IV 150 ML IV ONE (10:15)
[2019-10-02 10:41] LABS: BASOPHILS % (AUTO) 0 % (0-10); EOSINOPHILS # (AUTO) 0.3 10^3/uL (0.0-0.3); EOSINOPHILS % (AUTO) 2 % (0-10); HEMATOCRIT 40 % (40-54); HEMOGLOBIN 12.8 G/DL (13.3-17.7); LYMPHOCYTES # (AUTO) 2.3 X 10^3 (1.0-4.0); LYMPHOCYTES % (AUTO) 21 % (12-44); MEAN CORPUSCULAR HEMOGLOBIN 26 PG (25-34); MEAN CORPUSCULAR HGB CONC 32 G/DL (32-36); MEAN CORPUSCULAR VOLUME 81 FL (80-99); MEAN PLATELET VOLUME 8.9 FL (7.4-10.4); MONOCYTES # (AUTO) 1.1 X 10^3 (0.0-1.0); MONOCYTES % (AUTO) 10 % (0-12); NEUTROPHILS # (AUTO) 7.1 X 10^3 (1.8-7.8); NEUTROPHILS % (AUTO) 66 % (42-75); PLATELET COUNT 237 10^3/uL (130-400); RED CELL DISTRIBUTION WIDTH 15.9 % (10.0-14.5); WHITE BLOOD COUNT 10.8 10^3/uL (4.3-11.0)
[2019-10-02 10:56] LABS: ALBUMIN 3.8 GM/DL (3.2-4.5); CHLORIDE 104 MMOL/L (98-107); POTASSIUM 3.7 MMOL/L (3.6-5.0); SODIUM 137 MMOL/L (135-145)
[2019-10-02 10:58] LABS: CALCIUM 8.7 MG/DL (8.5-10.1)
[2019-10-02 10:59] LABS: GLUCOSE 121 MG/DL (70-105); TOTAL PROTEIN 7.1 GM/DL (6.4-8.2)
[2019-10-02 11:00] LABS: CARBON DIOXIDE 21 MMOL/L (21-32)
[2019-10-02 11:01] LABS: BILIRUBIN,TOTAL 0.4 MG/DL (0.1-1.0)
--- NOTE | 2019-10-02 11:01 | NUR ---
RECIEVED REPORT FROM JAYA DEL CID TO ASSUME PT CARE AT THIS TIME.
[2019-10-02 11:02] LABS: ALKALINE PHOSPHATASE 78 U/L (40-136); CREATININE SERUM 1.09 MG/DL (0.60-1.30); GFR ESTIMATED > 60
[2019-10-02 11:03] LABS: BUN/CREATININE RATIO 10
[2019-10-02 11:05] LABS: ALANINE AMINOTRANSFERASE 17 U/L (0-55)
[2019-10-02 12:21] LABS: BILIRUBIN,URINE NEGATIVE (NEGATIVE); CLARITY,URINE CLOUDY; COLOR,URINE YELLOW; GLUCOSE, URINE (UA) NEGATIVE (NEGATIVE); KETONES,URINE NEGATIVE (NEGATIVE); LEUKOCYTE ESTERASE ,URINE 3+ (NEGATIVE); NITRITE,URINE POSITIVE (NEGATIVE); PROTEIN,URINE 2+ (NEGATIVE)
[2019-10-02 12:35] LABS: BACTERIA,URINE TRACE /HPF; WBC,URINE TNTC /HPF
[2019-10-02 13:00] VITALS: BP 132/75
== END 2019-10-02 13:01 | disposition short-term general hospital (02) ==
LOC: EDUNIT# 09:36 → ER 09:37
DX: N50.812 Left testicular pain (principal); N50.811 Right testicular pain; Z88.0 Allergy status to penicillin; Z79.899 Other long term (current) drug therapy; F90.9 Attention-deficit hyperactivity disorder, unspecified type; F41.9 Anxiety disorder, unspecified; F31.9 Bipolar disorder, unspecified; F60.9 Personality disorder, unspecified
CPT/HCPCS: 36415; 51702; 80053; 81000; 85025; 87040; 87077; 87088; 87186

== ENCOUNTER 2020-06-02 21:44 | Emergency (ER) | payer MEDICARE, MEDICAID ==
[~2020-06-02] VITALS: Ht 170.1 cm; Wt 154.7 kg
--- NOTE | 2020-06-02 22:24 | ED Abdominal Pain ---
General Chief Complaint: Abdominal/GI Problems Stated Complaint: ABD PAIN/VOMITING Nursing Triage Note: PATIENT STAES HE BEGAN HAVING DIARRHEA THIS AM, VERBALIZES HAS TAKEN OTC ANTIDIARRHEAL HOWEVER CONTINUES TO HAVE ABDOMINAL PAIN AND DIARRHEA. Sepsis Screen: No Definite Risk Source of Information: Patient Exam Limitations: No Limitations History of Present Illness Date Seen by Provider: Jun 02, 2020 Time Seen by Provider: 22:15 Initial Comments Patient is a 49-year-old male who presents to the emergency department today with a chief complaint of abdominal pain. Patient points to the epigastrium and primarily the left flank. He states that he started having diarrhea this morning and has had multiple episodes. His gave him some generic sute-hum-mxuabak antidiarrheal medications but it has not helped. Patient states that he is a little bit nauseated. He states he thinks there might have been a little blood in his diarrhea. He denies fevers or chills. He states that he does not feel well. Nothing makes the pain any better or worse. He denies chest pain, shortness of breath, productive cough. He has never had pain quite like this before. Patient tells me that when he was 6 or 7 years old he had part of his left kidney removed secondary to kidney stones. He denies any dysuria, urgency or frequency. He denies having any blood in his urine. Patient has not taken anything for the abdominal pain specifically. All other review of systems reviewed and negative except as stated. Timing/Duration: 1-2 Days, Getting Worse (over the last 24 hours) Severity/Quality: Moderate Location: RUQ, RLQ, Generalized Abdomen Radiation: No Radiation Activities at Onset: None Modifying Factors: Worsens With Vomiting Associated Symptoms: Nausea/Vomiting (nausea without vomiting) Allergies and Home Medications Allergies Coded Allergies: Penicillins (Verified Allergy, Unknown, 12/01/18) Home Medications Brimonidine Tartrate 5 Ml Btl, 1 DROP OS BID, (Reported) Ciprofloxacin HCl 500 Mg Tablet, 500 MG PO BID Prescribed by: RAJI GELLER on 06/03/20 0149 Duloxetine HCl 60 Mg Capsule.dr, 60 MG PO DAILY, (Reported) TAKES 60MG + 30MG TO EQUAL 90MG DAILY Duloxetine HCl 30 Mg Capsule.dr, 30 MG PO DAILY, (Reported) TAKES 60MG + 30MG TO EQUAL 90MG DAILY Metronidazole 500 Mg Tablet, 500 MG PO TID Prescribed by: RAJI GELLER on 06/03/20 0149 [place]-3/Dha/Epa/Fish Oil 1,000 Mg Capsule, 1,000 MG PO BID, (Reported) Oxcarbazepine 600 Mg Tablet, 600 MG PO HS, (Reported) Oxcarbazepine 600 Mg Tablet, 900 MG PO DAILY, (Reported) TAKES 1 & (600MG) TABS DAILY Sulfamethoxazole/Trimethoprim 1 Each Tablet, 1 EACH PO BID Prescribed by: ADAM ESTRADA on 07/27/19 1059 Tafluprost/Pf 1 Each Droperette, 1 DROP OS HS Prescribed by: RESHMA WALLACE on 07/24/19 1044 Timolol Maleate 5 Ml Drops, 1 DROP OS BID, (Reported) Patient Home Medication List Home Medication List Reviewed: Yes Review of Systems Review of Systems Constitutional: see HPI EENTM: No Symptoms Reported Respiratory: No Symptoms Reported Cardiovascular: No Symptoms Reported Gastrointestinal: Abdomen Distended, Abdominal Pain, Blood Streaked Stools (Spots of blood in his stool reportedly), Diarrhea, Nausea Genitourinary: No Symptoms Reported Musculoskeletal: no symptoms reported Skin: no symptoms reported All Other Systems Reviewed Negative Unless Noted: Yes Past Znkhdef-Hsfkfk-Aeizya Hx Patient Social History Alcohol Use: Denies Use Recent Infectious Disease Expo: No Recent Hopitalizations: No Immunizations Up To Date Date of Pneumonia Vaccine: Dec 29, 2016 Seasonal Allergies Seasonal Allergies: No Past Medical History Surgeries: Yes (KIDNEY SX CHILD) Respiratory: No Cardiac: No Neurological: Yes (PSYCH PROBLEMS) Developmental Disorder Genitourinary: No Gastrointestinal: No Musculoskeletal: No Endocrine: No HEENT: No Cancer: No Psychosocial: Yes ADD/ADHD, Anxiety, Bipolar, Personality Disorder, Depression Integumentary: No Blood Disorders: No Family Medical History No Pertinent Family Hx Physical Exam Vital Signs Vital Signs - First Documented 06/02/20 22:05 Temp 37.6 Pulse 113 Resp 20 B/P (MAP) 154/98 (116) Pulse Ox 96 O2 Delivery Room Air Capillary Refill : Less Than 3 Seconds Height/Weight/BMI Height: 5'6.00" Weight: 330lbs. 0.0oz. 149.634771qf; 53.00 BMI Method:Stated General Appearance: WD/WN, no apparent distress Respiratory: lungs clear, normal breath sounds, no respiratory distress Cardiovascular: regular rate, rhythm, tachycardia Gastrointestinal: soft, guarding (Voluntary guarding with palpation of the epigastrium and right and left upper quadrants), tenderness (Diffuse tenderness in the upper quadrants of the abdomen), other (Patient is morbidly obese) Extremities: normal range of motion, normal inspection Neurologic/Psychiatric: alert, normal mood/affect, oriented x 3 Skin: normal color, warm/dry Progress/Results/Core Measures Results/Orders Lab Results Laboratory Tests Test 06/02/20 22:30 Range/Units White Blood Count 13.0 H 4.3-11.0 10^3/uL Red Blood Count 5.09 4.30-5.52 10^6/uL Hemoglobin 12.9 L 13.3-17.7 g/dL Hematocrit 41 40-54 % Mean Corpuscular Volume 80 80-99 fL Mean Corpuscular Hemoglobin 25 25-34 pg Mean Corpuscular Hemoglobin Concent 32 32-36 g/dL Red Cell Distribution Width 15.5 H 10.0-14.5 % Platelet Count 249 130-400 10^3/uL Mean Platelet Volume 8.6 L 9.0-12.2 fL Immature Granulocyte % (Auto) 1 % Neutrophils (%) (Auto) 74 42-75 % Lymphocytes (%) (Auto) 15 12-44 % Monocytes (%) (Auto) 10 0-12 % Eosinophils (%) (Auto) 2 0-10 % Basophils (%) (Auto) 0 0-10 % Neutrophils # (Auto) 9.6 H 1.8-7.8 10^3/uL Lymphocytes # (Auto) 1.9 1.0-4.0 10^3/uL Monocytes # (Auto) 1.2 H 0.0-1.0 10^3/uL Eosinophils # (Auto) 0.2 0.0-0.3 10^3/uL Basophils # (Auto) 0.0 0.0-0.1 10^3/uL Immature Granulocyte # (Auto) 0.1 0.0-0.1 10^3/uL Sodium Level 134 L 135-145 MMOL/L Potassium Level 3.7 3.6-5.0 MMOL/L Chloride Level 103 98-107 MMOL/L Carbon Dioxide Level 19 L 21-32 MMOL/L Anion Gap 12 5-14 MMOL/L Blood Urea Nitrogen 9 7-18 MG/DL Creatinine 0.87 0.60-1.30 MG/DL Estimat Glomerular Filtration Rate > 60 BUN/Creatinine Ratio 10 Glucose Level 145 H 70-105 MG/DL Calcium Level 8.5 8.5-10.1 MG/DL Corrected Calcium 8.8 8.5-10.1 MG/DL Total Bilirubin 0.3 0.1-1.0 MG/DL Aspartate Amino Transf (AST/SGOT) 13 5-34 U/L Alanine Aminotransferase (ALT/SGPT) 13 0-55 U/L Alkaline Phosphatase 100 40-136 U/L Total Protein 7.0 6.4-8.2 GM/DL Albumin 3.6 3.2-4.5 GM/DL My Orders Orders - RAJI GELLER MD Ondansetron Injection (Zofran Injectio (06/02/20 22:30) Ns Iv 1000 Ml (Sodium Chloride 0.9%) (06/02/20 22:30) Cbc With Automated Diff (06/02/20 22:25) Comprehensive Metabolic Panel (06/02/20 22:25) Ketorolac Injection (Toradol Injection) (06/02/20 22:45) Ct Abdomen/Pelvis Wo (06/02/20 22:40) Ciprofloxacin Tablet (Cipro Tablet) (06/03/20 01:45) Metronidazole Tablet (Flagyl Tablet) (06/03/20 01:45) Medications Given in ED Current Medications Medications Dose Ordered Sig/Blanca Route Start Time Stop Time Status Last Admin Dose Admin Ketorolac Tromethamine 15 mg ONCE ONCE IVP 06/02/20 22:45 06/02/20 22:46 DC 06/02/20 22:59 15 MG Ondansetron HCl 4 mg ONCE ONCE IVP 06/02/20 22:30 06/02/20 22:31 DC 06/02/20 22:58 4 MG Vital Signs/I&O 06/02/20 22:05 Temp 37.6 Pulse 113 Resp 20 B/P (MAP) 154/98 (116) Pulse Ox 96 O2 Delivery Room Air Blood Pressure Mean: 116 Progress Progress Note : Time: 01:44 Progress Note Reevaluated patient he feels much better he sitting up at the bedside and states that his pain is much improved. Patient is given Flagyl and Cipro for his colitis on CT. I have talked to him also about the 6 mm kidney stone that he has in the left lower pole as well as the stone in the right renal pelvis measuring 2.3 cm. I have advised that he needs to follow-up with Dr. Vivas regarding his kidney stone. He verbalizes understanding. He has scheduled follow-up with Dr. Galvez on 26 June for a colonoscopy. I have given him strict return precautions and that over the next 24 to 48 hours if he is not having improvement if he is running fever or if he is having vomiting that he needs to come back to the emergency room and possibly be admitted. Both he and his verbalized understanding of his discharge instructions. All questions are sought and answered. Patient is stable for discharge. Diagnostic Imaging Diagonstic Imaging: CT Plain Films/CT/US/NM/MRI: abdomen Comments Stat rad reading of CT abdomen and pelvis shows findings suspicious for severe colitis of the right colon and right lateral transverse colon, inflammatory or infectious. Also lymphadenopathy is noted, likely reactive. Moderate right hydronephrosis from a right renal pelvic calculus. Patient has a 2.3 cm stone in the right renal pelvis. Punctate calculi in the right lower pole. Left lower pole kidney calculus measures 6 mm posteriorly there is some stranding in the right flank. patient is also noted to have multiple diverticula. Departure Impression Primary Impression: Colitis Additional Impressions: Right nephrolithiasis Left nephrolithiasis Disposition: HOME, SELF-CARE Condition: Stable Departure-Patient Inst. Decision time for Depature: 01:46 Referrals: [facility] (PCP/Family) Primary Care Physician ISSA GALVEZ ELIAS A MD Patient Instructions: Colitis, Kidney Stone, Adult ED Add. Discharge Instructions: Take the antibiotics as prescribed over the course of the next 7 days. I have given you a prescription for pain medications. Take these 1 every 6 hours as needed for severe pain. Drink plenty of fluids to stay well-hydrated. You need to call Dr. Workman, the urologist, regarding the kidney stones found in the right and left kidneys. The right kidney stone is much bigger and is causing some swelling of your kidney. If you have fever, worsening abdominal pain, vomiting or other worsening symptoms within the next 24 to 48 hours please come back to the emergency room for reevaluation. Scripts Hydrocodone/Acetaminophen (Hydrocodone-Acetamin 5-325 mg) 1 Each Tablet 1 TAB PO Q4H PRN for PAIN-MODERATE (5-7), #15 TAB Prov: RAJI GELLER MD 06/03/20 Metronidazole (Flagyl) 500 Mg Tablet 500 MG PO TID for 7 Days, #21 TAB Prov: RAJI GELLER MD 06/03/20 Ciprofloxacin HCl (Ciprofloxacin HCl) 500 Mg Tablet 500 MG PO BID, #14 TAB Prov: RAJI GELLER MD 06/03/20 Copy Copies To 1: ISSA GALVEZ DO Copies To 2: CHUY WORKMAN MD, KATHRYN M MD Jun 02, 2020 22:24
[2020-06-02] MEDS ORDERED: ONDANSETRON 4 MG/2 ML (SDV) Z0FRAN IVP ONE (22:30)
[2020-06-02] MEDS ORDERED: NS IV 1000 ML 1,000 ML IV SCH (22:30)
[2020-06-02 22:37] LABS: BASOPHILS % (AUTO) 0 % (0-10); EOSINOPHILS # (AUTO) 0.2 10^3/uL (0.0-0.3); EOSINOPHILS % (AUTO) 2 % (0-10); HEMATOCRIT 41 % (40-54); HEMOGLOBIN 12.9 g/dL (13.3-17.7); LYMPHOCYTES # (AUTO) 1.9 10^3/uL (1.0-4.0); LYMPHOCYTES % (AUTO) 15 % (12-44); MEAN CORPUSCULAR HEMOGLOBIN 25 pg (25-34); MEAN CORPUSCULAR HGB CONC 32 g/dL (32-36); MEAN CORPUSCULAR VOLUME 80 fL (80-99); MEAN PLATELET VOLUME 8.6 fL (9.0-12.2); MONOCYTES # (AUTO) 1.2 10^3/uL (0.0-1.0); MONOCYTES % (AUTO) 10 % (0-12); NEUTROPHILS # (AUTO) 9.6 10^3/uL (1.8-7.8); NEUTROPHILS % (AUTO) 74 % (42-75); PLATELET COUNT 249 10^3/uL (130-400)
[2020-06-02] MEDS ORDERED: KETOROLAC 30 MG/ML VIAL IVP ONE (22:45)
[2020-06-02 22:48] LABS: ALBUMIN 3.6 GM/DL (3.2-4.5)
[2020-06-02 22:49] LABS: CHLORIDE 103 MMOL/L (98-107); POTASSIUM 3.7 MMOL/L (3.6-5.0); SODIUM 134 MMOL/L (135-145)
[2020-06-02 22:50] LABS: CALCIUM 8.5 MG/DL (8.5-10.1)
[2020-06-02 22:51] LABS: GLUCOSE 145 MG/DL (70-105)
[2020-06-02 22:52] LABS: CARBON DIOXIDE 19 MMOL/L (21-32)
[2020-06-02 22:53] LABS: BILIRUBIN,TOTAL 0.3 MG/DL (0.1-1.0)
[2020-06-02 22:54] LABS: ALKALINE PHOSPHATASE 100 U/L (40-136)
[2020-06-02 22:55] LABS: CREATININE SERUM 0.87 MG/DL (0.60-1.30); GFR ESTIMATED > 60
[2020-06-02 22:56] LABS: BUN/CREATININE RATIO 10
[2020-06-02 22:57] LABS: ALANINE AMINOTRANSFERASE 13 U/L (0-55)
[2020-06-03] MEDS ORDERED: CIPROFLOXACIN 500 MG (CIPRO) TABLET PO SCH (01:45)
[2020-06-03] MEDS ORDERED: metroNIDAZOLE 500 MG (FLAGYL) TAB PO ONE (01:45)
[2020-06-03] MEDS ORDERED: CIPR500T5 PO (01:49)
[2020-06-03] MEDS ORDERED: METR500T PO (01:49)
[2020-06-03] MEDS ORDERED: ACHD5005 PO (01:51)
[2020-06-03 02:00] VITALS: BP 142/86
--- NOTE | 2020-06-03 08:14 | Diagnostic Imaging Report ---
PROCEDURE: CT abdomen and pelvis without contrast. TECHNIQUE: Multiple contiguous axial images were obtained through the abdomen and pelvis without the use of intravenous contrast. Auto Exposure Controls were utilized during the CT exam to meet ALARA standards for radiation dose reduction. INDICATION: Left flank pain, bloody stools COMPARISON: 07/23/2019 FINDINGS: The visualized lung bases are clear. Diffusely decreased density throughout the liver. The unenhanced liver is otherwise unremarkable. The unenhanced spleen is unremarkable. The adrenal glands are unremarkable. The pancreas is unremarkable. The gallbladder is unremarkable. Large calculus is identified within the right renal pelvis measuring up to 2.3 cm with additional smaller calculi noted within the right kidney. Mild right-sided hydronephrosis is present. Mild fat stranding is noted associated with a centralized aspect of the right kidney, which appears to be a change from the prior examination. The right ureter is unremarkable. Multiple nonobstructing left renal calculi. The left ureter is unremarkable. No aneurysmal dilatation of the abdominal aorta. The urinary bladder is unremarkable. Significant mural thickening involving the ascending colon and proximal transverse colon is identified with adjacent fat stranding. This is associated with lymph nodes within the right lower quadrant. Mildly prominent in size. The appendix is unremarkable. No bowel obstruction or pneumatosis. No significant free fluid or free air throughout the abdomen or pelvis. Scattered osseous degenerative changes without acute osseous abnormality. IMPRESSION: Findings consistent with colitis involving the ascending and proximal transverse colon. This is likely of infectious or inflammatory etiology. Ischemic etiologies not excluded. Bilateral renal calculi, particularly on the right. There is resulting mild to moderate right-sided hydronephrosis. Superimposed infection should be considered given associated inflammatory stranding. Recommend correlation with urinary analysis. Mild adenopathy within the right lower quadrant, likely reactive in nature. Additional findings as described above. Agree with preliminary interpretation. Dictated by: Dictated on workstation # [id number]
== END 2020-06-03 02:10 | disposition home or self-care (01) ==
LOC: EDUNIT# 21:44 → ER 21:49
DX: K52.9 Noninfective gastroenteritis and colitis, unspecified (principal); N13.2 Hydronephrosis with renal and ureteral calculous obstruction; F31.9 Bipolar disorder, unspecified; F41.9 Anxiety disorder, unspecified; Z88.0 Allergy status to penicillin
CPT/HCPCS: 36415; 74176; 80053; 85025

== ENCOUNTER 2020-06-03 22:26 | Inpatient (IN) | payer MEDICARE, MEDICAID ==
[~2020-06-03] VITALS: Ht 170.1 cm; Wt 158.6 kg
[~2020-06-03 22:26] MED LIST changes: +ACHD5005 PO; +CIPR500T5 PO; +METR500T PO
[2020-06-03] MEDS ORDERED: LACTATED RINGERS 1,000 ML IV ONE (22:45)
--- NOTE | 2020-06-03 22:52 | ED GI ---
General Stated Complaint: DIARRHEA / PAIN / DX: KIDNEY STONES Source of Information: Patient (VERY POOR HISTORIAN, HOSTILE, NOT WANTING TO ANSWER QUESTIONS) History of Present Illness Date Seen by Provider: Jun 03, 2020 Time Seen by Provider: 22:34 Initial Comments PT ARRIVES VIA POV FROM HOME C/O UPPER ABDOMINAL PAIN C/O BLOODY DIARRHEA--UNKNOWN NUMBER OF TIMES NO NAUSEA/VOMITING HAS NOT CHECKED TEMP--DOES NOT KNOW IF HE HAS HAD FEVER OR NOT NO URINARY SYMPTOMS ATE D[employer] FROM [employer] TONIGHT--CHEESEBURGER, FRIES, [place]KE PT SEEN HERE LAST PM FOR SAME SYMPTOMS DX WITH COLITIS AND GIVEN RX FOR HYDROCODONE, CIPRO AND FLAGYL TOOK HYDROCODONE X 1 TODAY AT 1630. HAS TAKEN 2 OF HIS ANTIBIOTICS PT ALSO DX WITH BILATERAL INTRARENAL STONES, AND ADVISED TO FOLLOW UP WITH DR. WORKMAN. SYMPTOMS ARE NO DIFFERENT TONIGHT, "THOUGHT IT WOULD BE GONE BY NOW" SO CAME BACK PCP: [facility] Allergies and Home Medications Allergies Coded Allergies: Penicillins (Verified Allergy, Unknown, 12/01/18) Home Medications Brimonidine Tartrate 5 Ml Btl, 1 DROP OS BID, (Reported) Ciprofloxacin HCl 500 Mg Tablet, 500 MG PO BID Prescribed by: RAJI GELLER on 06/03/20148 Duloxetine HCl 60 Mg Capsule.dr, 60 MG PO DAILY, (Reported) TAKES 60MG + 30MG TO EQUAL 90MG DAILY Duloxetine HCl 30 Mg Capsule.dr, 30 MG PO DAILY, (Reported) TAKES 60MG + 30MG TO EQUAL 90MG DAILY Hydrocodone/Acetaminophen 1 Each Tablet, 1 TAB PO Q4H PRN for PAIN-MODERATE (5- 7) Prescribed by: RAJI GELLER on 06/03/20 015 Metronidazole 500 Mg Tablet, 500 MG PO TID Prescribed by: RAJI GELLER on 06/03/20148 [place]-3/Dha/Epa/Fish Oil 1,000 Mg Capsule, 1,000 MG PO BID, (Reported) Oxcarbazepine 600 Mg Tablet, 600 MG PO HS, (Reported) Oxcarbazepine 600 Mg Tablet, 900 MG PO DAILY, (Reported) TAKES 1 & (600MG) TABS DAILY Sulfamethoxazole/Trimethoprim 1 Each Tablet, 1 EACH PO BID Prescribed by: ADAM ESTRADA on 07/27/19 1059 Tafluprost/Pf 1 Each Droperette, 1 DROP OS HS Prescribed by: RESHMA WALLACE on 07/24/19 1044 Timolol Maleate 5 Ml Drops, 1 DROP OS BID, (Reported) Patient Home Medication List Home Medication List Reviewed: Yes Review of Systems Review of Systems Constitutional: see HPI Respiratory: No Symptoms Reported Cardiovascular: No Symptoms Reported Gastrointestinal: See HPI, Abdominal Pain, Diarrhea; Denies Nausea, Denies Poor Appetite; Rectal Bleeding; Denies Vomiting Genitourinary: No Symptoms Reported Musculoskeletal: no symptoms reported Skin: no symptoms reported Psychiatric/Neurological: No Symptoms Reported Endocrine: No Symptoms Reported Hematologic/Lymphatic: See HPI Past Ekhrilf-Slzytg-Xbrknf Hx Past Med/Social Hx: Reviewed and Corrections made Patient Social History Alcohol Use: Denies Use Drug of Choice: DENIES Smoking Status: Current Everyday Smoker (1/2 PPD) Type Used: Cigarettes Recent Hopitalizations: No Immunizations Up To Date Date of Pneumonia Vaccine: Dec 29, 2016 Seasonal Allergies Seasonal Allergies: No Past Medical History Surgeries: Yes (KIDNEY SX CHILD;CATARACT SURGERY;YAG CAPSULOTOMY;COLONOSCOPY/POLYPECTOMY) Eye Surgery, Renal Respiratory: No Cardiac: No Neurological: Yes (PSYCH PROBLEMS) Developmental Disorder Genitourinary: Yes (KIDNEY SURGERY CHILD) Kidney Stones Gastrointestinal: Yes (COLONOSCOPY/POLYPECTOMY 2018) Polyps Musculoskeletal: No Endocrine: Yes (OBESITY) HEENT: Yes (CATARACT SURGERY; YAG CAPSULOTOMY) Cataract, Glaucoma Cancer: No Psychosocial: Yes ADD/ADHD, Anxiety, Bipolar, Personality Disorder, Depression Integumentary: No Blood Disorders: No Family Medical History No Pertinent Family Hx Physical Exam Vital Signs Vital Signs - First Documented 06/03/20 22:45 Temp 38.1 Pulse 119 Resp 18 B/P (MAP) 152/101 (118) Pulse Ox 94 O2 Delivery Room Air Capillary Refill : Height/Weight/BMI Height: 5'6.00" Weight: 330lbs. 0.0oz. 149.996905wk; 53.00 BMI Method:Stated General Appearance: WD/WN, no apparent distress, obese Respiratory: normal breath sounds, no respiratory distress, no accessory muscle use Cardiovascular: no edema, no murmur, tachycardia Gastrointestinal: soft, tenderness (DIFFUSE TENDERNESS, MOST TENDER IN LU[place] AT THIS TIME), other (OBESE--DIFFICULT TO DETERMINE IF MASS OR ORGANOMEGALY IS PRESENT) Extremities: non-tender, pedal edema (1+ BILATERALLY) Back: no CVA tenderness Neurologic/Psychiatric: cake stripper II-XII nml as tested, no motor/sensory deficits, alert, oriented x 3, other (APPEARS TO BE SOMEWHAT MENTALLY CHALLENGED, DOES HIS ) Skin: normal color, warm/dry; No rash Focused Exam Lactate Level 06/03/20 22:45: Lactic Acid Level 1.49 Lactic Acid Level Laboratory Tests Test 06/03/20 22:45 Lactic Acid Level 1.49 MMOL/L (0.50-2.00) Progress/Results/Core Measures Results/Orders Lab Results Laboratory Tests Test 06/03/20 22:45 Range/Units White Blood Count 14.7 H 4.3-11.0 10^3/uL Red Blood Count 5.35 4.30-5.52 10^6/uL Hemoglobin 13.3 13.3-17.7 g/dL Hematocrit 43 40-54 % Mean Corpuscular Volume 80 80-99 fL Mean Corpuscular Hemoglobin 25 25-34 pg Mean Corpuscular Hemoglobin Concent 31 L 32-36 g/dL Red Cell Distribution Width 15.6 H 10.0-14.5 % Platelet Count 247 130-400 10^3/uL Mean Platelet Volume 8.4 L 9.0-12.2 fL Immature Granulocyte % (Auto) 0 % Neutrophils (%) (Auto) 79 H 42-75 % Lymphocytes (%) (Auto) 12 12-44 % Monocytes (%) (Auto) 7 0-12 % Eosinophils (%) (Auto) 2 0-10 % Basophils (%) (Auto) 0 0-10 % Neutrophils # (Auto) 11.5 H 1.8-7.8 10^3/uL Lymphocytes # (Auto) 1.8 1.0-4.0 10^3/uL Monocytes # (Auto) 1.0 0.0-1.0 10^3/uL Eosinophils # (Auto) 0.2 0.0-0.3 10^3/uL Basophils # (Auto) 0.0 0.0-0.1 10^3/uL Immature Granulocyte # (Auto) 0.1 0.0-0.1 10^3/uL Neutrophils % (Manual) 80 % Lymphocytes % (Manual) 3 % Monocytes % (Manual) 7 % Eosinophils % (Manual) 3 % Basophils % (Manual) 0 % Band Neutrophils 0 % Reactive Lymphocytes 7 % Anisocytosis SLIGHT Sodium Level 135 135-145 MMOL/L Potassium Level 3.5 L 3.6-5.0 MMOL/L Chloride Level 104 98-107 MMOL/L Carbon Dioxide Level 20 L 21-32 MMOL/L Anion Gap 11 5-14 MMOL/L Blood Urea Nitrogen 11 7-18 MG/DL Creatinine 0.96 0.60-1.30 MG/DL Estimat Glomerular Filtration Rate > 60 BUN/Creatinine Ratio 11 Glucose Level 144 H 70-105 MG/DL Lactic Acid Level 1.49 0.50-2.00 MMOL/L Calcium Level 8.2 L 8.5-10.1 MG/DL Corrected Calcium 8.7 8.5-10.1 MG/DL Total Bilirubin 0.5 0.1-1.0 MG/DL Aspartate Amino Transf (AST/SGOT) 11 5-34 U/L Alanine Aminotransferase (ALT/SGPT) 13 0-55 U/L Alkaline Phosphatase 82 40-136 U/L C-Reactive Protein High Sensitivity 18.31 H 0.00-0.50 MG/DL Total Protein 6.5 6.4-8.2 GM/DL Albumin 3.4 3.2-4.5 GM/DL Amylase Level 20 L 25-125 U/L Lipase 22 8-78 U/L My Orders Orders - CHRISTIAN BROWN DO Ed Iv/Invasive Line Start (06/03/20 22:35) Amylase (06/03/20 22:35) Cbc With Automated Diff (06/03/20 22:35) Comprehensive Metabolic Panel (06/03/20 22:35) Hs C Reactive Protein (06/03/20 22:35) Lipase (06/03/20 22:35) Ua Culture If Indicated (06/03/20 22:35) Erythrocyte Sedimentation Rate (06/03/20 22:35) Ed Iv/Invasive Line Start (06/03/20 22:35) Lactated Ringers (Lr 1000 Ml Iv Solution (06/03/20 22:45) Lactic Acid Analyzer (06/03/20 22:41) Blood Culture (06/03/20 22:41) Manual Differential (06/03/20 22:45) Medications Given in ED Current Medications Medications Dose Ordered Sig/Blanca Route Start Time Stop Time Status Last Admin Dose Admin Lactated Ringer's 1,000 ml @ 0 mls/hr Q0M ONCE IV 06/03/20 22:45 06/03/20 22:47 DC 06/03/20 22:52 1,000 MLS/HR Vital Signs/I&O 06/03/20 22:45 Temp 38.1 Pulse 119 Resp 18 B/P (MAP) 152/101 (118) Pulse Ox 94 O2 Delivery Room Air Progress Progress Note : Progress Note UNEVENTFUL ER STAY NO STOOLS DURING ER STAY GIVEN IV FLUIDS AND IV ANTIBIOTICS Departure Communication (Admissions) SPOKE WITH DR. SHOEMAKER, HOSPITALIST BELT CUTTER FOR [facility]. ACCEPTS PT FOR ADMIT Impression Primary Impression: Colitis Additional Impression: Sepsis Disposition: ADMITTED INPATIENT Condition: Stable Admissions Decision to Admit Reason: Admit from ER (General) Decision to Admit/Date: Jun 03, 2020 Time/Decision to Admit Time: 23:30 Departure-Patient Inst. Referrals: [facility] (PCP/Family) Primary Care Physician CHRISTIAN BROWN DO Jun 03, 2020 22:52
[2020-06-03 22:54] LABS: BASOPHILS % (AUTO) 0 % (0-10); EOSINOPHILS # (AUTO) 0.2 10^3/uL (0.0-0.3); EOSINOPHILS % (AUTO) 2 % (0-10); HEMATOCRIT 43 % (40-54); HEMOGLOBIN 13.3 g/dL (13.3-17.7); LYMPHOCYTES # (AUTO) 1.8 10^3/uL (1.0-4.0); LYMPHOCYTES % (AUTO) 12 % (12-44); MEAN CORPUSCULAR HEMOGLOBIN 25 pg (25-34); MEAN CORPUSCULAR HGB CONC 31 g/dL (32-36); MEAN CORPUSCULAR VOLUME 80 fL (80-99); MEAN PLATELET VOLUME 8.4 fL (9.0-12.2); MONOCYTES % (AUTO) 7 % (0-12); NEUTROPHILS # (AUTO) 11.5 10^3/uL (1.8-7.8); NEUTROPHILS % (AUTO) 79 % (42-75); PLATELET COUNT 247 10^3/uL (130-400); WHITE BLOOD COUNT 14.7 10^3/uL (4.3-11.0)
[2020-06-03 23:05] LABS: ALBUMIN 3.4 GM/DL (3.2-4.5); CHLORIDE 104 MMOL/L (98-107); POTASSIUM 3.5 MMOL/L (3.6-5.0); SODIUM 135 MMOL/L (135-145)
[2020-06-03 23:06] LABS: AMYLASE 20 U/L (25-125)
[2020-06-03 23:07] LABS: CALCIUM 8.2 MG/DL (8.5-10.1)
[2020-06-03 23:08] LABS: GLUCOSE 144 MG/DL (70-105); TOTAL PROTEIN 6.5 GM/DL (6.4-8.2)
[2020-06-03 23:09] LABS: CARBON DIOXIDE 20 MMOL/L (21-32)
[2020-06-03 23:10] LABS: BILIRUBIN,TOTAL 0.5 MG/DL (0.1-1.0)
[2020-06-03 23:11] LABS: ALKALINE PHOSPHATASE 82 U/L (40-136); CREATININE SERUM 0.96 MG/DL (0.60-1.30); GFR ESTIMATED > 60
[2020-06-03 23:13] LABS: BUN/CREATININE RATIO 11
[2020-06-03 23:15] LABS: ALANINE AMINOTRANSFERASE 13 U/L (0-55); BAND NEUTROPHILS 0 %; BASOPHILS % (MANUAL) 0 %; EOSINOPHILS % (MANUAL) 3 %; LIPASE 22 U/L (8-78); LYMPHOCYTES % (MANUAL) 3 %; MONOCYTES % (MANUAL) 7 %; NEUTROPHILS % (MANUAL) 80 %; REACTIVE LYMPHOCYTES 7 %
[2020-06-03 23:16] LABS: ANISOCYTOSIS SLIGHT
[2020-06-03] MEDS ORDERED: metroNIDAZOLE 500MG/100ML IVPB 100 ML IV ONE (23:45)
[2020-06-03] MEDS ORDERED: CIPROFLOXACIN IV 400MG/200ML 200 ML IV ONE (23:45)
[2020-06-04] VITALS (7 sets, daily range): BP systolic 132–165; BP diastolic 68–95
[2020-06-04 00:12] LABS: ERYTHROCYTE SEDIMENTATION RATE 32 MM/HR (0-15)
[2020-06-04] MEDS ORDERED: D5 1/2 NS W/KCL 20 MEQ/L 1,000 ML IV ONE (00:58)
[2020-06-04] MEDS ORDERED: ACETAMINOPHEN 500 MG TAB (TYLENOL) PO PRN (01:15)
[2020-06-04] MEDS ORDERED: ONDANSETRON 4 MG/2 ML (SDV) Z0FRAN IV PRN (01:15)
[2020-06-04] MEDS: D5 1/2 NS W/KCL 20 MEQ/L 1,000 ML IV SCH ×4 (01:23→21:25)
[2020-06-04 01:24] LABS: BILIRUBIN,URINE NEGATIVE (NEGATIVE); CLARITY,URINE CLOUDY; COLOR,URINE YELLOW; GLUCOSE, URINE (UA) 1+ (NEGATIVE); KETONES,URINE NEGATIVE (NEGATIVE); LEUKOCYTE ESTERASE ,URINE 2+ (NEGATIVE); NITRITE,URINE POSITIVE (NEGATIVE); PROTEIN,URINE 2+ (NEGATIVE)
[2020-06-04 01:47] LABS: BACTERIA,URINE MODERATE /HPF; RBC,URINE TNTC /HPF; WBC,URINE TNTC /HPF
[2020-06-04 05:41] LABS: BASOPHILS % (AUTO) 0 % (0-10); EOSINOPHILS # (AUTO) 0.3 10^3/uL (0.0-0.3); EOSINOPHILS % (AUTO) 2 % (0-10); HEMATOCRIT 38 % (40-54); HEMOGLOBIN 11.9 g/dL (13.3-17.7); LYMPHOCYTES # (AUTO) 2.2 10^3/uL (1.0-4.0); LYMPHOCYTES % (AUTO) 16 % (12-44); MEAN CORPUSCULAR HEMOGLOBIN 25 pg (25-34); MEAN CORPUSCULAR HGB CONC 31 g/dL (32-36); MEAN CORPUSCULAR VOLUME 81 fL (80-99); MEAN PLATELET VOLUME 8.5 fL (9.0-12.2); MONOCYTES # (AUTO) 1.2 10^3/uL (0.0-1.0); MONOCYTES % (AUTO) 9 % (0-12); NEUTROPHILS # (AUTO) 9.8 10^3/uL (1.8-7.8); NEUTROPHILS % (AUTO) 72 % (42-75); PLATELET COUNT 220 10^3/uL (130-400); WHITE BLOOD COUNT 13.6 10^3/uL (4.3-11.0)
[2020-06-04 05:48] LABS: ALBUMIN 3.1 GM/DL (3.2-4.5)
[2020-06-04 05:49] LABS: CHLORIDE 103 MMOL/L (98-107); POTASSIUM 3.7 MMOL/L (3.6-5.0); SODIUM 134 MMOL/L (135-145)
[2020-06-04 05:50] LABS: CALCIUM 7.9 MG/DL (8.5-10.1)
[2020-06-04 05:51] LABS: GLUCOSE 132 MG/DL (70-105); TOTAL PROTEIN 5.7 GM/DL (6.4-8.2)
[2020-06-04 05:52] LABS: CARBON DIOXIDE 22 MMOL/L (21-32)
[2020-06-04 05:53] LABS: BILIRUBIN,TOTAL 0.4 MG/DL (0.1-1.0)
[2020-06-04 05:54] LABS: ALKALINE PHOSPHATASE 71 U/L (40-136)
[2020-06-04 05:55] LABS: CREATININE SERUM 0.82 MG/DL (0.60-1.30); GFR ESTIMATED > 60
[2020-06-04 05:56] LABS: BUN/CREATININE RATIO 11
[2020-06-04 05:58] LABS: ALANINE AMINOTRANSFERASE 11 U/L (0-55)
[2020-06-04] MEDS ORDERED: metroNIDAZOLE 500 MG/100 ML IVPB (PRE-MIX) IV SCH (06:00)
[2020-06-04] MEDS: CIPROFLOXACIN 400 MG/D5W 200 ML (PRE-MIX) IV SCH ×2 (08:49→20:36)
[2020-06-04] MEDS: fentaNYL INJECTION 100 MCG/2 ML AMP IV PRN ×2 (09:02→17:21)
--- NOTE | 2020-06-04 10:13 | CONSULTATION REPORT ---
DATE OF SERVICE: ATTENDING [facility]ASS DEPOSITION TENDER: [facility]. ADMITTING PHYSICIAN: Dr. Conde. HISTORY OF PRESENT ILLNESS: The patient is a 49-year-old male, who is a very poor historian and does have a significant psychiatric history. He presented to the emergency department with a crampy abdominal pain, diarrhea as well as blood in the stools. The patient was seen in the emergency department one day previous and was treated with oral antibiotics. The patient also does have bilateral nephrolithiasis, which is symptomatic and was advised to follow up with Dr. Machado. He returned with continued diarrhea as well as blood in his stools. At this time, it appears that he does have the Clostridium difficile antigen and the test for polymerase chain reaction is pending at this time. He is currently being treated for Clostridium difficile colitis. PAST MEDICAL HISTORY: Bipolar disorder, personality disorder, anxiety, depression, bilateral cataracts, and morbid obesity. PAST SURGICAL HISTORY: Bilateral cataract surgery, some form of renal surgery as a child, colonoscopy and polypectomy in 2019. ALLERGIES: PENICILLIN. MEDICATIONS: Brimonidine eyedrops b.i.d., Cipro 500 mg p.o. b.i.d., metronidazole 500 mg t.i.d., duloxetine 90 mg daily, oxcarbazepine 900 mg daily, Bactrim b.i.d., timolol eyedrops b.i.d. SOCIAL HISTORY: Positive smoke 30 pack years, negative alcohol. FAMILY HISTORY: Noncontributory. REVIEW OF SYSTEMS: Obese male with a crampy abdominal pain. He reports that he has had multiple episodes of diarrhea and has had some blood in the stools. No shortness of breath or difficulty in breathing. No cough or sputum production. No chest pain, palpitations or diaphoresis. No nausea, vomiting. No fever, chills, and no recent inadvertent weight loss. All other review of systems negative. PHYSICAL EXAMINATION: VITAL SIGNS: Temperature 37.4, blood pressure 144/68, pulse 105, respirations 18, and pulse ox 93% on room air. CHEST: Clear. HEART: Regular. EXTREMITIES: +1/3 bilateral lower extremity edema, negative Homans sign. HEENT: No scleral icterus. NECK: No cervical lymphadenopathy. ABDOMEN: Soft, slightly distended with a mild diffuse, crampy abdominal pain. SKIN: Warm and dry. LABORATORY DATA: WBC 13.6, hemoglobin 11.9, hematocrit 38, and platelets 220. BUN 9, creatinine 0.82. Urinalysis, positive nitrite, 2+ leukocyte esterase, and moderate bacteria. ASSESSMENT AND PLAN: A 49-year-old male with colitis, which he is currently being treated for Clostridium difficile colitis. He also does have a urinary tract infection. We will continue with conservative management with bowel rest as well as continue antibiotics; however, wait for the final report and if this is positive, we will switch his antibiotics to vancomycin orally, which would be the first line therapy for Clostridium difficile colitis. Job ID: [id number] DocumentID: [id number] Dictated Date: 06/04/2020 09:28:16 On Site Nurse Date: 06/04/2020 10:13:20 Dictated By: SUSANA MARSHALL MD MTDD
[2020-06-04] MEDS: DULoxetine 30 MG (CYMBALTA) CAP PO SCH (10:39)
[2020-06-04] MEDS: OXcarbazepine (TRILEPTAL) 300 MG TAB PO SCH ×2 (10:39→20:37)
[2020-06-04] MEDS: VANCOMYCIN 125 MG CAPSULE PO SCH ×3 (10:40→17:21)
--- NOTE | 2020-06-04 12:01 | History & Physical-Hospitalist ---
History of Present Illness HPI/Chief Complaint 49-year-old white male who presents to the emergency room with diarrhea abdominal pain and fever. He had previously been seen and discharged on oral medications but returns with continued tenured and similar symptoms. Patient is a relatively poor historian. He does have findings consistent with sepsis with elevated white count fever tachycardia. UA shows evidence of urinary tract infection. He has known bilateral nephrolithiasis concern would be that these may be infected. Source: patient, old records Exam Limitations: other Date Seen 06/04/20 Time Seen by a Provider: 10:45 Attending Physician Cheli Conde MD PCP Center/Se,[facility] Referring Physician Date of Admission Jun 03, 2020 at 23:30 Home Medications & Allergies Home Medications Reviewed patient Home Medication Reconciliation performed by pharmacy medication reconciliations solder technician and/or nursing. Patients Allergies have been reviewed. Allergies Allergies Coded Allergies Penicillins (Verified Allergy, Unknown, 12/01/18) Past Lotormi-Haqqjr-Epstpf Hx Past Med/Social Hx: Reviewed Nursing Past Med/Soc Hx, Reviewed and Corrections made Patient Social History Marrital Status: Employed/Student: unemployed Alcohol Use: Denies Use Recreational Drug Use: No Drug of Choice: DENIES Smoking Status: Current Everyday Smoker Type Used: Cigarettes Recent Foreign Travel: No Contact w/other who traveled: No Recent Hopitalizations: No Recent Infectious Disease Expo: No Immunizations Up To Date Date of Pneumonia Vaccine: Dec 29, 2016 Seasonal Allergies Seasonal Allergies: No Past Medical History Surgeries: Eye Surgery, Renal Neurological: Developmental Disorder Genitourinary: Kidney Stones Gastrointestinal: Polyps HEENT: Cataract, Glaucoma Psychosocial: ADD/ADHD, Anxiety, Bipolar, Personality Disorder, Depression History of Blood Disorders: No Family History No Pertinent Family Hx Review of Systems Constitutional: see HPI EENTM: no symptoms reported Respiratory: no symptoms reported Cardiovascular: no symptoms reported Gastrointestinal: abdominal pain, diarrhea Skin: no symptoms reported Psychiatric/Neurological: Anxiety Physical Exam Physical Exam Vital Signs Vital Signs - First Documented 06/03/20 22:45 Temp 38.1 Pulse 119 Resp 18 B/P (MAP) 152/101 (118) Pulse Ox 94 O2 Delivery Room Air Capillary Refill : Less Than 3 Seconds Height, Weight, BMI Height: 5'6.00" Weight: 330lbs. 0.0oz. 149.578527ex; 54.81 BMI Method:Stated General Appearance: Obese, Other (Mild) Neck: Limited Range of Motion Respiratory: Chest Non Tender, Lungs Clear, Normal Breath Sounds, No Accessory Muscle Use, No Respiratory Distress Cardiovascular: Regular Rate, Rhythm, No Gallop, No Murmur, Normal Peripheral Pulses Gastrointestinal: Normal Bowel Sounds, Soft, Tenderness Rectal: Deferred Extremity: Normal Capillary Refill, Pedal Edema Neurologic/Psychiatric: Alert, Oriented x3, No Motor/Sensory Deficits, Normal Mood/Affect Skin: Normal Color, Warm/Dry Lymphatic: No Adenopathy Results Results/Procedures Labs Laboratory Tests 06/03/20 22:45 06/04/20 05:34 Patient resulted labs reviewed. Assessment/Plan Admission Diagnosis Sepsis with tachycardia fever and leukocytosis Colitis confirmatory tests for C. difficile pending on Flagyl, and Cipro and oral vancomycin Urinary tract infection culture pending Nephrolithiasis possibly infected-will need urology follow-up Bipolar disorder Appreciate Dr. Boogie's help Admission Status: Inpatient Order (span 2 midnights) Reason for Inpatient Admission: Sepsis Copy Copies To 1: [facility]CHELI GLOVER MD Jun 04, 2020 12:01
[2020-06-04] MEDS: LATANOPROST 0.005% (XALATAN) OPHTH SOLN 2.5 ML OS SCH (20:37)
[2020-06-04] MEDS: TIMOLOL MALEATE 0.5% 5 ML (TIMOPTIC) BTL OS SCH (20:38)
[2020-06-04] MEDS: BRIMONIDINE 0.2% (ALPHAGAN) OPHTH SOLN 5 ML BTL OS SCH (20:38)
[2020-06-04] MEDS ORDERED: TAFLUPROST OS SCH (21:00)
[2020-06-05] MEDS: VANCOMYCIN 125 MG CAPSULE PO SCH ×4 (00:16→18:19)
[2020-06-05] MEDS: D5 1/2 NS W/KCL 20 MEQ/L 1,000 ML IV SCH ×3 (00:19→16:51)
[2020-06-05 04:30] VITALS: BP 125/61
[2020-06-05 08:21] VITALS: BP 121/71
[2020-06-05] MEDS: BRIMONIDINE 0.2% (ALPHAGAN) OPHTH SOLN 5 ML BTL OS SCH ×2 (08:55→21:31)
[2020-06-05] MEDS: CIPROFLOXACIN 400 MG/D5W 200 ML (PRE-MIX) IV SCH ×2 (08:55→21:30)
[2020-06-05] MEDS: OXcarbazepine (TRILEPTAL) 300 MG TAB PO SCH ×2 (08:56→21:30)
[2020-06-05] MEDS: DULoxetine 30 MG (CYMBALTA) CAP PO SCH (08:56)
[2020-06-05] MEDS: TIMOLOL MALEATE 0.5% 5 ML (TIMOPTIC) BTL OS SCH ×2 (08:56→21:31)
[2020-06-05] MEDS ORDERED: NON-FORMULARY MEDICATION 1 EA EA (Duloxetine HCl 60 MG) PO SCH (09:00)
[2020-06-05] MEDS: ENOXAPARIN 60 MG/0.6 ML (LOVENOX) SYR SC SCH ×2 (10:38→21:33)
--- NOTE | 2020-06-05 10:56 | Progress Note - Hospitalist ---
INEZ MURILLO MED STUDENT 06/05/20 1056: Subjective HPI/CC On Admission Date Seen by Provider: Jun 05, 2020 Time Seen by Provider: 08:10 49-year-old white male who presents to the emergency room with diarrhea abdominal pain and fever. He had previously been seen and discharged on oral medications but returns with continued tenured and similar symptoms. Patient is a relatively poor historian. He does have findings consistent with sepsis with elevated white count fever tachycardia. UA shows evidence of urinary tract infection. He has known bilateral nephrolithiasis concern would be that these may be infected. Subjective/Events-last exam Pt awake and lying in bed upon entry. Pt states that he is doing better and having less frequent episodes of loose stool since starting antibiotics. Notes generalized, cramping abdominal pain that comes and goes. Denies difficulty with urinating. No acute events over night. Review of Systems General: No Chills, No Fatigue HEENT: No Head Aches, No Dysphasia Pulmonary: No Dyspnea, No Cough Cardiovascular: No: Chest Pain, Palpitations Gastrointestinal: Abdominal Pain, Diarrhea; No: Nausea, Vomiting Genitourinary: No Dysuria, No Incontinence Musculoskeletal: No: back pain, leg pain Neurological: No: Weakness, Confusion Focused Exam Lactate Level 06/03/20 22:45: Lactic Acid Level 1.49 Objective Exam Vital Signs Vital Signs Date Time Temp Pulse Resp B/P (MAP) Pulse Ox O2 Delivery O2 Flow Rate FiO2 06/05/20 08:21 36.4 104 20 121/71 (88) 67 Room Air Capillary Refill : Less Than 3 Seconds General Appearance: No Apparent Distress, Obese HEENT: PERRL/EOMI, Moist Mucous Membranes Neck: Normal Inspection, Non Tender, Supple Respiratory: Chest Non Tender, Lungs Clear, Normal Breath Sounds, No Accessory Muscle Use, No Respiratory Distress Cardiovascular: Regular Rate, Rhythm, No Gallop, No Murmur Gastrointestinal: Normal Bowel Sounds; No Soft (rigid); Tenderness (generalized) Rectal: Deferred Back: Normal Inspection, No Vertebral Tenderness Extremity: Non Tender, No Calf Tenderness, Pedal Edema, Swelling Neurologic/Psychiatric: Alert, Oriented x3, No Motor/Sensory Deficits, Normal Mood/Affect Skin: Normal Color, Warm/Dry Lymphatic: No Adenopathy (cervical, supraclavicular, axillary) Results/Procedures Lab Patient resulted labs reviewed. Assessment/Plan Assessment and Plan Assess & Plan/Chief Complaint ASSESSMENT: Colitis secondary to C. difficile UTI - culture pending Anemia Leukocytosis - improving Bipolar Disorder PLAN: Continue clear liquids for bowel rest Consult surgery (Dr. Eaton) as patient has appointment scheduled to meet with him regarding the colitis Consult urology (Dr. Machado) for bilateral hydronephrosis secondary to nephrolithiasis Encourage ambulation Continue vancomycin/ ciprofloxacin Restart daily labs TIERRA MCKAY DO 06/06/20 0500: Subjective Subjective/Events-last exam Pt doing pretty well C-Diff sent off since the preliminary was positive but the follow-up was negative Vancomycin and Cipro maintained for UTI Kidney stones will be managed by Dr. Machado Ordered STAT labs Sepsis is resolved with IV fluids Initiated Lovenox Review of Systems General: Malaise Gastrointestinal: Diarrhea Objective Exam General Appearance: No Apparent Distress, WD/WN, Chronically ill, Obese Respiratory: Lungs Clear Cardiovascular: Regular Rate, Rhythm Neurologic/Psychiatric: Alert, Oriented x3, No Motor/Sensory Deficits, Normal Mood/Affect Assessment/Plan Assessment and Plan Assess & Plan/Chief Complaint Diarrhea management Dr Machado UTI tx Supervisory-Addendum Brief Verification & Attestation Participated in pt care: history, MDM, physical Personally performed: exam, history, MDM, supervision of care Care discussed with: Medical Student Procedures: n/a Results interpretation: Verified all documentation Verification and Attestation of Medical Student E/M Service A medical student performed and documented this service in my presence. I reviewed and verified all information documented by the medical student and made modifications to such information, when appropriate. I personally performed the physical exam and medical decision making. Tierra Mckay, Jun 06, 2020,04:59 INEZ MURILLO MED STUDENT Jun 05, 2020 10:56 TIERRA MCKAY DO Jun 06, 2020 05:00
[2020-06-05 11:07] LABS: BASOPHILS % (AUTO) 0 % (0-10); EOSINOPHILS # (AUTO) 0.3 10^3/uL (0.0-0.3); EOSINOPHILS % (AUTO) 3 % (0-10); HEMATOCRIT 38 % (40-54); HEMOGLOBIN 11.8 g/dL (13.3-17.7); LYMPHOCYTES # (AUTO) 1.6 10^3/uL (1.0-4.0); LYMPHOCYTES % (AUTO) 15 % (12-44); MEAN CORPUSCULAR HEMOGLOBIN 25 pg (25-34); MEAN CORPUSCULAR HGB CONC 31 g/dL (32-36); MEAN CORPUSCULAR VOLUME 81 fL (80-99); MEAN PLATELET VOLUME 8.5 fL (9.0-12.2); MONOCYTES # (AUTO) 0.8 10^3/uL (0.0-1.0); MONOCYTES % (AUTO) 8 % (0-12); NEUTROPHILS # (AUTO) 7.7 10^3/uL (1.8-7.8); NEUTROPHILS % (AUTO) 73 % (42-75); PLATELET COUNT 229 10^3/uL (130-400); WHITE BLOOD COUNT 10.4 10^3/uL (4.3-11.0)
--- NOTE | 2020-06-05 11:11 | Progress Note - Surgery ---
ONEIL BAKER MED STUDENT 06/05/20 1111: Subjective Date Seen by a Provider: Jun 05, 2020 Time Seen by a Provider: 10:50 Subjective/Events-last exam Pt is sitting comfortably in bedside recliner, conversing without significant effort with a pleasant demeanor. He reports that he is not in any significant pain. He was able to eat this morning without any difficulty. His last bowel movement was last night, it was diarrhea without gross blood. He is on Fentanyl last administered yesterday evening 17:21. Physical examination did not elicit any abdominal pain, there was no guarding or distention. There is no pedal edema this morning. Pt has no complaints or questions at this time. Focused Exam Lactate Level 06/03/20 22:45: Lactic Acid Level 1.49 Respiratory: Chest Non Tender, Lungs Clear, Normal Breath Sounds, No Accessory Muscle Use, No Respiratory Distress Cardiovascular: Regular Rate, Rhythm, No Edema, No Gallop, No JVD, No Murmur, Normal Peripheral Pulses Peripheral Pulses: 2+ Dorsalis Pedis (R), 2+ Left Dors-Pedis (L), 2+ Radial Pulses (R), 2+ Radial Pulses (L) Skin: normal color; No rash, No ulcerations Objective Exam Vital Signs Date Time Temp Pulse Resp B/P (MAP) Pulse Ox O2 Delivery O2 Flow Rate FiO2 06/05/20 08:21 36.4 104 20 121/71 (88) 67 Room Air 06/05/20 08:00 67 Room Air 06/05/20 06:32 100 06/05/20 04:30 36.4 107 18 125/61 (82) 96 Room Air 06/05/20 01:00 99 06/04/20 23:20 37.2 100 18 140/75 (96) 96 Room Air 06/04/20 23:09 96 Room Air 06/04/20 20:35 Room Air 06/04/20 20:33 36.2 103 18 134/75 (94) 95 Room Air 06/04/20 19:00 100 06/04/20 16:20 36.6 101 20 162/71 (101) 93 Room Air 06/04/20 12:24 108 06/04/20 11:31 37.0 99 18 146/80 (102) 96 Room Air I & O 06/05/20 07:00 Intake Total 3990 ml Balance 3990 ml Capillary Refill : Less Than 3 Seconds General Appearance: No Apparent Distress, WD/WN; No Anxious; Obese HEENT: PERRL/EOMI, Pharynx Normal, Moist Mucous Membranes; No Scleral Icterus (L), No Scleral Icterus (R) Neck: Normal Inspection, Non Tender, Supple; No Lymphadenopathy (L), No Lymphadenopathy (R) Respiratory: Chest Non Tender, Lungs Clear, Normal Breath Sounds, No Accessory Muscle Use, No Respiratory Distress Cardiovascular: Regular Rate, Rhythm, No Edema, No Gallop, No JVD, No Murmur, Normal Peripheral Pulses Peripheral Pulses: 2+ Dorsalis Pedis (R), 2+ Left Dors-Pedis (L), 2+ Radial Pulses (R), 2+ Radial Pulses (L) Gastrointestinal: normal bowel sounds, non tender, soft; No distended, No guarding, No tenderness Extremity: Normal Capillary Refill, Normal Inspection, Non Tender, No Calf Tenderness, No Pedal Edema Neurologic/Psychiatric: Alert, Oriented x3, No Motor/Sensory Deficits, Normal Mood/Affect Skin: Normal Color, Warm/Dry Lymphatic: No Adenopathy Results Lab Laboratory Tests 06/05/20 10:50: Microbiology 06/04/20 C. difficile DNA Amplification, Resulted Pending 06/04/20 C. difficile GDH Antigen & Toxins - Final, Resulted 06/04/20 Stool Culture, Resulted Pending 06/03/20 Blood Culture - Preliminary, Resulted No growth 06/03/20 Urine Culture - Preliminary, Resulted Culture In Progress Assessment/Plan Assessment/Plan Assessment/Plan ASSESSMENT Acute Colitis - Ascending/right transverse Nephrolithiasis b/l w/right sided hydronephrosis C. Diff assay pending Blood culture x2 report no growth Urine cultures report staph aureus Elevated WBC Hx of kidney stones and renal surgery. Obesity PLAN Continue Ciprofloxacin for UTI, allergic to penicillins (hives) Adjust treatment for colitis according to microbiology report on C Diff assay. Pain and nausea medication PRN Continue liquid diet Conservative management and observation. Consider surgical intervention for nephrolithiasis w/hydronephrosis YOAN EATON DO 06/05/201958: Subjective Subjective/Events-last exam Pain that he was having has gotten better. Not really had any today. Still having liquids stools today. No blood in stools visually. Tolerating liquids. Denies any new complaints. Denies n/v fever sweats chills shortness of breath or chest pain at this time. Objective Exam General Appearance: No Apparent Distress, Obese HEENT: PERRL/EOMI Neck: Non Tender, Supple Respiratory: Chest Non Tender, No Accessory Muscle Use, No Respiratory Distress Cardiovascular: Regular Rate, Rhythm, No JVD Gastrointestinal: non tender, soft; No distended, No guarding, No tenderness Extremity: Normal Inspection, Non Tender Neurologic/Psychiatric: Alert, Oriented x3, No Motor/Sensory Deficits, Normal Mood/Affect Skin: Normal Color, Warm/Dry Lymphatic: No Adenopathy Assessment/Plan Assessment/Plan Assessment/Plan Acute Colitis - Ascending/right transverse UTI Nephrolithiasis b/l w/right sided hydronephrosis Diarrhea C. Diff assay pending Obesity PLAN Continue Ciprofloxacin/Vancomycin Pain and nausea medication PRN Continue liquid diet Conservative management and observation. Dr. Machado consulted for urology. Will need colonoscopy outpatient once resolved. Supervisory-Addendum Brief Verification & Attestation Participated in pt care: history, MDM, physical Personally performed: exam, history, MDM, supervision of care Care discussed with: Medical Student Procedures: n/a Results interpretation: Verified all documentation Verification and Attestation of Medical Student E/M Service A medical student performed and documented this service in my presence. I reviewed and verified all information documented by the medical student and made modifications to such information, when appropriate. I personally performed the physical exam and medical decision making. Yoan Eaton, Jun 05, 2020,19:59 ONEIL BAKER MED STUDENT Jun 05, 2020 11:11 YOAN EATON DO Jun 05, 2020 19:59
[2020-06-05 11:21] LABS: CHLORIDE 103 MMOL/L (98-107); POTASSIUM 3.7 MMOL/L (3.6-5.0); SODIUM 136 MMOL/L (135-145)
[2020-06-05 11:22] LABS: CALCIUM 7.8 MG/DL (8.5-10.1)
[2020-06-05 11:23] LABS: GLUCOSE 107 MG/DL (70-105); TOTAL PROTEIN 5.7 GM/DL (6.4-8.2)
[2020-06-05 11:24] LABS: CARBON DIOXIDE 23 MMOL/L (21-32)
[2020-06-05 11:25] LABS: BILIRUBIN,TOTAL 0.3 MG/DL (0.1-1.0)
[2020-06-05 11:27] LABS: ALKALINE PHOSPHATASE 59 U/L (40-136); CREATININE SERUM 0.82 MG/DL (0.60-1.30); GFR ESTIMATED > 60
[2020-06-05 11:28] LABS: BUN/CREATININE RATIO 5
[2020-06-05 11:30] LABS: ALANINE AMINOTRANSFERASE 11 U/L (0-55)
[2020-06-05 12:00] VITALS: BP 141/96
[2020-06-05] MEDS ORDERED: ACHD5005 PO (13:55)
[2020-06-05] MEDS ORDERED: CIPR500T5 PO (13:55)
[2020-06-05] MEDS ORDERED: METR-145 PO (13:56)
[2020-06-05] MEDS ORDERED: TAFL1DRO OS (13:56)
[2020-06-05] MEDS ORDERED: OMEP20CA18 PO (13:56)
[2020-06-05 16:11] VITALS: BP 137/73
[2020-06-05 19:40] VITALS: BP 146/72
[2020-06-05] MEDS ORDERED: HYDROcodone/APAP 5 MG/325 MG (LORTAB) TAB PO PRN (20:30)
[2020-06-05] MEDS ORDERED: TAFLUPROST OS SCH (21:00)
[2020-06-05] MEDS: LATANOPROST 0.005% (XALATAN) OPHTH SOLN 2.5 ML OS SCH (21:35)
[2020-06-06] VITALS (7 sets, daily range): BP systolic 126–160; BP diastolic 64–92
[2020-06-06] MEDS: D5 1/2 NS W/KCL 20 MEQ/L 1,000 ML IV SCH ×4 (00:52→19:39)
[2020-06-06] MEDS: VANCOMYCIN 125 MG CAPSULE PO SCH ×5 (00:58→23:17)
[2020-06-06 06:03] LABS: BASOPHILS % (AUTO) 0 % (0-10); EOSINOPHILS # (AUTO) 0.3 10^3/uL (0.0-0.3); EOSINOPHILS % (AUTO) 4 % (0-10); HEMATOCRIT 36 % (40-54); HEMOGLOBIN 11.2 g/dL (13.3-17.7); LYMPHOCYTES # (AUTO) 2.2 10^3/uL (1.0-4.0); LYMPHOCYTES % (AUTO) 26 % (12-44); MEAN CORPUSCULAR HEMOGLOBIN 25 pg (25-34); MEAN CORPUSCULAR HGB CONC 31 g/dL (32-36); MEAN CORPUSCULAR VOLUME 80 fL (80-99); MEAN PLATELET VOLUME 8.7 fL (9.0-12.2); MONOCYTES # (AUTO) 0.8 10^3/uL (0.0-1.0); MONOCYTES % (AUTO) 9 % (0-12); NEUTROPHILS # (AUTO) 5.2 10^3/uL (1.8-7.8); NEUTROPHILS % (AUTO) 61 % (42-75); PLATELET COUNT 245 10^3/uL (130-400); WHITE BLOOD COUNT 8.6 10^3/uL (4.3-11.0)
[2020-06-06 06:25] LABS: CHLORIDE 104 MMOL/L (98-107); POTASSIUM 3.6 MMOL/L (3.6-5.0); SODIUM 134 MMOL/L (135-145)
[2020-06-06 06:27] LABS: CALCIUM 7.8 MG/DL (8.5-10.1)
[2020-06-06 06:28] LABS: GLUCOSE 103 MG/DL (70-105); TOTAL PROTEIN 5.6 GM/DL (6.4-8.2)
[2020-06-06 06:29] LABS: CARBON DIOXIDE 20 MMOL/L (21-32)
[2020-06-06 06:30] LABS: BILIRUBIN,TOTAL 0.3 MG/DL (0.1-1.0)
[2020-06-06 06:31] LABS: ALKALINE PHOSPHATASE 56 U/L (40-136); GFR ESTIMATED > 60
[2020-06-06 06:32] LABS: BUN/CREATININE RATIO 4
[2020-06-06 06:34] LABS: ALANINE AMINOTRANSFERASE 14 U/L (0-55)
--- NOTE | 2020-06-06 07:34 | Progress Note - Surgery ---
JOYCE DENNIS MED STUDENT 06/06/20 0734: Subjective Date Seen by a Provider: Jun 06, 2020 Time Seen by a Provider: 07:15 Subjective/Events-last exam Patients states he's doing well this morning. States he slept without difficulty. Tolerating clear liquids well without nausea or vomiting. Reports still having diarrhea, but unable to report how many episodes overnight, just stating had one episode of watery diarrhea several hours ago without blood. Denies chest pain, SOB, abdominal pain, or subjective fevers. Denies abdominal cramping or pain. No other complaints/concerns reported. Review of Systems General: No Chills, No Night Sweats HEENT: No Head Aches, No Visual Changes Pulmonary: No Dyspnea, No Cough Cardiovascular: No: Chest Pain, Palpitations Gastrointestinal: Diarrhea; No: Nausea, Vomiting, Abdominal Pain Genitourinary: No Dysuria, No Frequency Musculoskeletal: No: neck pain, back pain Neurological: No: Weakness, Numbness Focused Exam Lactate Level 06/03/20 22:45: Lactic Acid Level 1.49 Objective Exam Vital Signs Date Time Temp Pulse Resp B/P (MAP) Pulse Ox O2 Delivery O2 Flow Rate FiO2 06/06/20 04:00 36.8 96 20 138/64 (88) 97 Room Air 06/06/20 01:00 96 06/06/20 00:00 35.8 90 22 141/78 (99) 98 Room Air 06/05/20 23:45 95 Room Air 06/05/20 20:00 97 Room Air 06/05/20 19:40 36.8 97 20 146/72 (96) 96 Room Air 06/05/20 19:00 94 06/05/20 16:11 36.5 95 20 137/73 (94) 97 Room Air 06/05/20 12:35 96 06/05/20 12:00 37.5 102 20 141/96 (111) 96 Room Air 06/05/20 08:21 36.4 104 20 121/71 (88) 67 Room Air 06/05/20 08:00 67 Room Air I & O 06/06/20 07:00 Intake Total 3900 ml Balance 3900 ml Capillary Refill : Less Than 3 Seconds General Appearance: No Apparent Distress, WD/WN, Chronically ill, Obese HEENT: PERRL/EOMI, Pharynx Normal Neck: Normal Inspection, Non Tender Respiratory: Chest Non Tender, Lungs Clear, Normal Breath Sounds, No Respiratory Distress Cardiovascular: Regular Rate, Rhythm, No Murmur, Normal Peripheral Pulses Peripheral Pulses: 2+ Dorsalis Pedis (R), 2+ Left Dors-Pedis (L), 2+ Radial Pulses (R), 2+ Radial Pulses (L) Gastrointestinal: normal bowel sounds, non tender, soft; No distended, No guarding, No tenderness Extremity: Normal Capillary Refill, Normal Inspection, Non Tender, No Calf Tenderness, Pedal Edema (trace) Neurologic/Psychiatric: Alert, Oriented x3, No Motor/Sensory Deficits, Normal Mood/Affect Skin: Normal Color, Warm/Dry Lymphatic: No Adenopathy Results Lab Laboratory Tests 06/05/20 10:50: White Blood Count 10.4, Red Blood Count 4.68, Hemoglobin 11.8L, Hematocrit 38L, Mean Corpuscular Volume 81, Mean Corpuscular Hemoglobin 25, Mean Corpuscular Hemoglobin Concent 31L, Red Cell Distribution Width 15.6H, Platelet Count 229, Mean Platelet Volume 8.5L, Immature Granulocyte % (Auto) 1, Neutrophils (%) (Auto) 73, Lymphocytes (%) (Auto) 15, Monocytes (%) (Auto) 8, Eosinophils (%) (Auto) 3, Basophils (%) (Auto) 0, Neutrophils # (Auto) 7.7, Lymphocytes # (Auto) 1.6, Monocytes # (Auto) 0.8, Eosinophils # (Auto) 0.3, Basophils # (Auto) 0.0, Immature Granulocyte # (Auto) 0.1, Sodium Level 136, Potassium Level 3.7, Chloride Level 103, Carbon Dioxide Level 23, Anion Gap 10, Blood Urea Nitrogen 4L, Creatinine 0.82, Estimat Glomerular Filtration Rate > 60, BUN/Creatinine Ratio 5, Glucose Level 107H, Calcium Level 7.8L, Corrected Calcium 8.6, Total B ilirubin 0.3, Aspartate Amino Transf (AST/SGOT) 13, Alanine Aminotransferase (ALT/SGPT) 11, Alkaline Phosphatase 59, Total Protein 5.7L, Albumin 3.0L 06/06/20 05:52: White Blood Count 8.6, Red Blood Count 4.47, Hemoglobin 11.2L, Hematocrit 36L, Mean Corpuscular Volume 80, Mean Corpuscular Hemoglobin 25, Mean Corpuscular Hemoglobin Concent 31L, Red Cell Distribution Width 15.4H, Platelet Count 245, Mean Platelet Volume 8.7L, Immature Granulocyte % (Auto) 1, Neutrophils (%) (Auto) 61, Lymphocytes (%) (Auto) 26, Monocytes (%) (Auto) 9, Eosinophils (%) (Auto) 4, Basophils (%) (Auto) 0, Neutrophils # (Auto) 5.2, Lymphocytes # (Auto) 2.2, Monocytes # (Auto) 0.8, Eosinophils # (Auto) 0.3, Basophils # (Auto) 0.0, Immature Granulocyte # (Auto) 0.1, Sodium Level 134L, Potassium Level 3.6, Chloride Level 104, Carbon Dioxide Level 20L, Anion Gap 10, Blood Urea Nitrogen 3L, Creatinine 0.80, Estimat Glomerular Filtration Rate > 60, BUN/Creatinine Ratio 4, Glucose Level 103, Calcium Level 7.8L, Corrected Calcium 8.6, Total Bilirubin 0.3, Aspartate Amino Transf (AST/SGOT) 18, Alanine Aminotransferase (ALT/SGPT) 14, Alkaline Phosphatase 56, Total Protein 5.6L, Albumin 3.0L Microbiology 06/04/20 C. difficile DNA Amplification - Final, Resulted 06/04/20 C. difficile GDH Antigen & Toxins - Final, Resulted 06/04/20 Stool Culture - Preliminary, Resulted Culture In Progress Presumptive Usual Yudelka 06/03/20 Blood Culture - Preliminary, Resulted No growth 06/03/20 Urine Culture - Preliminary, Resulted Staphylococcus aureus Assessment/Plan Assessment/Plan Assessment/Plan Acute Colitis - Ascending/right transverse Leukocytosis- Resolved UTI Nephrolithiasis b/l w/right sided hydronephrosis Diarrhea C. Diff assay resulted negative Obesity PLAN Continue Ciprofloxacin/DC vanco as C. Diff assays negative Pain and nausea medication PRN Advance to full liquid as tolerated Continue conservative management and observation. Dr. Machado consulted for urology. Will need colonoscopy outpatient once resolved. ISSA EATON DO 06/06/20 1444: Subjective Subjective/Events-last exam Patient states he is doing well. He is tolerating clear liquids. Patient not having any abdominal pain. He denies any nausea or vomiting. States he still having diarrhea but significantly less. Patient denies any blood in the stools. Denies any nausea vomiting fever sweats chills shortness of breath or chest pain. Objective Exam General Appearance: No Apparent Distress, Obese HEENT: PERRL/EOMI Neck: Normal Inspection, Non Tender Respiratory: Chest Non Tender, No Accessory Muscle Use, No Respiratory Distress Cardiovascular: Regular Rate, Rhythm, No JVD Gastrointestinal: non tender, soft; No distended, No guarding Extremity: Non Tender, No Calf Tenderness Neurologic/Psychiatric: Alert, Oriented x3, No Motor/Sensory Deficits, Normal Mood/Affect Skin: Normal Color, Warm/Dry Lymphatic: No Adenopathy Assessment/Plan Assessment/Plan Assessment/Plan Acute Colitis - Ascending/right transverse Leukocytosis- Resolved UTI Nephrolithiasis b/l w/right sided hydronephrosis Diarrhea C. Diff assay resulted negative Obesity PLAN Continue Ciprofloxacin/DC vanco as C. Diff assays negative Pain and nausea medication PRN Advance diet Continue conservative management and observation. Dr. Machado consulted for urology. Will need colonoscopy outpatient once resolved. Home soon. Supervisory-Addendum Brief Verification & Attestation Participated in pt care: history, MDM, physical Personally performed: exam, history, MDM, supervision of care Care discussed with: Medical Student Procedures: n/a Results interpretation: Verified all documentation Verification and Attestation of Medical Student E/M Service A medical student performed and documented this service in my presence. I reviewed and verified all information documented by the medical student and made modifications to such information, when appropriate. I personally performed the physical exam and medical decision making. Issa Eaton, Jun 06, 2020,14:44 JOYCE DENNIS MED STUDENT Jun 06, 2020 07:34 ISSA EATON DO Jun 06, 2020 14:44
[2020-06-06] MEDS: CIPROFLOXACIN 400 MG/D5W 200 ML (PRE-MIX) IV SCH ×2 (09:13→20:31)
[2020-06-06] MEDS: OXcarbazepine (TRILEPTAL) 300 MG TAB PO SCH ×2 (09:14→20:32)
[2020-06-06] MEDS: DULoxetine 30 MG (CYMBALTA) CAP PO SCH (09:14)
[2020-06-06] MEDS: TIMOLOL MALEATE 0.5% 5 ML (TIMOPTIC) BTL OS SCH ×2 (09:15→20:31)
[2020-06-06] MEDS: BRIMONIDINE 0.2% (ALPHAGAN) OPHTH SOLN 5 ML BTL OS SCH ×2 (09:15→20:31)
--- NOTE | 2020-06-06 09:50 | Progress Note - Hospitalist ---
Subjective HPI/CC On Admission Date Seen by Provider: Jun 06, 2020 Time Seen by Provider: 09:30 49-year-old white male who presents to the emergency room with diarrhea abdominal pain and fever. He had previously been seen and discharged on oral medications but returns with continued tenured and similar symptoms. Patient is a relatively poor historian. He does have findings consistent with sepsis with elevated white count fever tachycardia. UA shows evidence of urinary tract infection. He has known bilateral nephrolithiasis concern would be that these may be infected. Subjective/Events-last exam Pt doing a little better Diarrhea is better Will discontinue telemetry Overall feels much improved C-Diff colitis treatment maintained Review of Systems General: Fatigue Focused Exam Lactate Level Objective Exam Vital Signs Vital Signs Date Time Temp Pulse Resp B/P (MAP) Pulse Ox O2 Delivery O2 Flow Rate FiO2 06/07/20 03:49 36.8 94 18 136/77 (96) 97 Room Air Capillary Refill : Less Than 3 Seconds General Appearance: No Apparent Distress, WD/WN, Chronically ill Respiratory: Lungs Clear Cardiovascular: Regular Rate, Rhythm Neurologic/Psychiatric: Alert, Oriented x3, No Motor/Sensory Deficits, Normal Mood/Affect Results/Procedures Lab Laboratory Tests 06/06/20 05:52 Patient resulted labs reviewed. Assessment/Plan Assessment and Plan Assess & Plan/Chief Complaint Assessment: Sepsis UTI C diff colitis Hydronephrosis Plan: Diarrhea management Dr Machado UTI tx RADHA MCKAY DO Jun 06, 2020 09:50
[2020-06-06] MEDS: ENOXAPARIN 60 MG/0.6 ML (LOVENOX) SYR SC SCH ×2 (10:28→23:17)
--- NOTE | 2020-06-06 14:48 | CONSULTATION REPORT ---
DATE OF SERVICE: 06/06/2020 ATTENDING PHYSICIAN: Dr. Wright. SUMMARY: A 49-year-old white man, morbidly obese, admitted with diarrhea and abdominal pain and fever with UTI and possible sepsis known to have bilateral nephrolithiasis, was confirmed by CAT scan. I reviewed his history and physical. The patient is allergic to PENICILLIN and he is not complaining of any flank pains. He is getting better with the treatment. IMPRESSION: Bilateral renal stones with UTI, colitis and abdominal pain with diarrhea, possible sepsis, "doubtful." PLAN: Continue present management. We will see him back in 2 weeks and see if he is a candidate for ESWL. We will get a KUB on him today to make sure we can visualize the stone by fluoroscopy. The plan was fully explained to the patient. Job ID: [id number] DocumentID: [id number] Dictated Date: 06/06/2020 12:15:32 Wireless Sales Expert Date: 06/06/2020 14:47:28 Dictated By: CHUY WORKMAN MD
--- NOTE | 2020-06-06 16:52 | Diagnostic Imaging Report ---
EXAMINATION: Abdomen 1 view HISTORY: Renal stone. COMPARISON: None available. FINDINGS: 2.7 cm calcification projects over the right kidney with smaller 3-4 mm calcifications more inferiorly. There is a 2.1 x 0.7 cm calcification projecting over the region of the urinary bladder. Few punctate 1-2 mm calcifications project over the left kidney. No dilated bowel. IMPRESSION: 1. Bilateral calcifications projecting over the kidneys as well as urinary bladder may represent renal stones. Dictated by: Dictated on workstation # [id number]
[2020-06-06] MEDS: LATANOPROST 0.005% (XALATAN) OPHTH SOLN 2.5 ML OS SCH (20:31)
[2020-06-07 03:49] VITALS: BP 136/77
[2020-06-07] MEDS: VANCOMYCIN 125 MG CAPSULE PO SCH (05:52)
--- NOTE | 2020-06-07 06:55 | Progress Note - Surgery ---
JOYCE DENNIS MED STUDENT 06/07/20 0655: Subjective Date Seen by a Provider: Jun 07, 2020 Time Seen by a Provider: 06:40 Subjective/Events-last exam Patient states he's feeling much better today. Reports he's no longer having diarrhea. Last BM as reported by patient was yesterday afternoon he thinks. States he's not had any blood in his stools or dark tarry stools. Voiding without difficulty. Diet was advanced yesterday and is tolerating po well. No complaints of nausea, vomiting, chest pain, SOB, abdominal pain, or fevers/chills. Reports some mild pain in his arm where is IV most likely infiltrated. States that he's feeling good and ready to get home. He has no questions at this time. Review of Systems General: No Chills, No Night Sweats, No Appetite HEENT: No Head Aches, No Visual Changes Pulmonary: No Dyspnea, No Cough Cardiovascular: No: Chest Pain, Palpitations, Lt Headedness Gastrointestinal: No: Nausea, Vomiting, Abdominal Pain, Melena, Hematochezia Genitourinary: No Dysuria, No Frequency Musculoskeletal: arm pain (very mild discomfort where IV likely infiltrated); No: back pain Neurological: No: Weakness, Numbness, Change in speech Objective Exam Vital Signs Date Time Temp Pulse Resp B/P (MAP) Pulse Ox O2 Delivery O2 Flow Rate FiO2 06/07/20 03:49 36.8 94 18 136/77 (96) 97 Room Air 06/06/20 23:14 37.1 89 20 158/79 (105) 96 Room Air 06/06/20 19:54 Room Air 06/06/20 19:44 36.9 108 18 160/92 (114) 98 Room Air 06/06/20 15:51 36.9 93 18 148/71 (96) 95 Room Air 06/06/20 12:00 36.8 94 18 126/68 (87) 98 Room Air 06/06/20 08:00 97 Room Air 06/06/20 08:00 37.1 98 16 132/72 (92) 98 I & O 06/07/20 07:00 Intake Total 1350 ml Balance 1350 ml Capillary Refill : Less Than 3 Seconds General Appearance: No Apparent Distress, WD/WN, Chronically ill, Obese HEENT: PERRL/EOMI, Pharynx Normal Neck: Normal Inspection, Non Tender Respiratory: Chest Non Tender, Lungs Clear, Normal Breath Sounds, No Accessory Muscle Use Cardiovascular: Regular Rate, Rhythm, No Murmur, Normal Peripheral Pulses Peripheral Pulses: 2+ Dorsalis Pedis (R), 2+ Left Dors-Pedis (L), 2+ Radial Pulses (R), 2+ Radial Pulses (L) Gastrointestinal: normal bowel sounds, non tender, soft; No distended, No guarding, No rebound, No tenderness Extremity: Normal Capillary Refill, Non Tender, No Calf Tenderness Neurologic/Psychiatric: Alert, Oriented x3, No Motor/Sensory Deficits, Normal Mood/Affect Skin: Normal Color, Warm/Dry Lymphatic: No Adenopathy Results Lab Microbiology 06/04/20 C. difficile DNA Amplification - Final, Complete 06/04/20 C. difficile GDH Antigen & Toxins - Final, Complete 06/04/20 Stool Culture - Final, Complete See Comments 06/03/20 Blood Culture - Preliminary, Resulted No growth 06/03/20 Urine Culture - Preliminary, Resulted Staphylococcus aureus Mixed Bacterial Yudelka Assessment/Plan Assessment/Plan Assessment/Plan Acute Colitis - Ascending/right transverse Leukocytosis- Resolved UTI Nephrolithiasis b/l w/right sided hydronephrosis Diarrhea resolved, C. Diff assay resulted negative Obesity PLAN DC Vanco Pain and nausea medication PRN Advance diet to General diet as is tolerating po w/o difficulty Continue conservative management and observation. Patient to follow up with Dr. Farris on outpatient basis Will need colonoscopy outpatient once resolved. Patient can likely be discharged home. ISSA EATON DO 06/07/20 0817: Subjective Subjective/Events-last exam Feeling well. More formed stool. Tolerating diet. Denies abdominal pain. Denies n/v fever sweats chills shortness of breath or chest pain. Objective Exam General Appearance: WD/WN, Obese HEENT: PERRL/EOMI Neck: Normal Inspection, Non Tender Respiratory: Chest Non Tender, No Accessory Muscle Use, No Respiratory Distress Cardiovascular: Regular Rate, Rhythm, No JVD Gastrointestinal: non tender, soft, other (obese) Extremity: Normal Capillary Refill, Non Tender, No Calf Tenderness Neurologic/Psychiatric: Alert, Oriented x3, No Motor/Sensory Deficits, Normal Mood/Affect Skin: Normal Color, Warm/Dry Lymphatic: No Adenopathy Assessment/Plan Assessment/Plan Assessment/Plan Acute Colitis - Ascending/right transverse Leukocytosis- Resolved UTI Nephrolithiasis b/l w/right sided hydronephrosis Diarrhea resolved, C. Diff assay resulted negative Obesity PLAN Pain and nausea medication PRN diet to General diet as is tolerating po w/o difficulty Continue conservative management and observation. Patient to follow up with Dr. Farris on outpatient basis Will need colonoscopy outpatient once resolved. Patient can likely be discharged home. Supervisory-Addendum Brief Verification & Attestation Participated in pt care: history, MDM, physical Personally performed: exam, history, MDM, supervision of care Care discussed with: Medical Student Procedures: n/a Results interpretation: Verified all documentation Verification and Attestation of Medical Student E/M Service A medical student performed and documented this service in my presence. I reviewed and verified all information documented by the medical student and made modifications to such information, when appropriate. I personally performed the physical exam and medical decision making. Issa Eaton, Jun 07, 2020,08:15 JOYCE DENNIS MED STUDENT Jun 07, 2020 06:55 ISSA EATON DO Jun 07, 2020 08:17
[2020-06-07 07:10] LABS: BASOPHILS % (AUTO) 1 % (0-10); EOSINOPHILS # (AUTO) 0.3 10^3/uL (0.0-0.3); EOSINOPHILS % (AUTO) 4 % (0-10); HEMATOCRIT 36 % (40-54); HEMOGLOBIN 11.1 g/dL (13.3-17.7); LYMPHOCYTES # (AUTO) 1.9 10^3/uL (1.0-4.0); LYMPHOCYTES % (AUTO) 30 % (12-44); MEAN CORPUSCULAR HEMOGLOBIN 26 pg (25-34); MEAN CORPUSCULAR HGB CONC 31 g/dL (32-36); MEAN CORPUSCULAR VOLUME 82 fL (80-99); MEAN PLATELET VOLUME 9.5 fL (9.0-12.2); MONOCYTES # (AUTO) 0.8 10^3/uL (0.0-1.0); MONOCYTES % (AUTO) 13 % (0-12); NEUTROPHILS # (AUTO) 3.3 10^3/uL (1.8-7.8); NEUTROPHILS % (AUTO) 52 % (42-75); PLATELET COUNT 184 10^3/uL (130-400); WHITE BLOOD COUNT 6.3 10^3/uL (4.3-11.0)
[2020-06-07 07:25] LABS: ALBUMIN 3.1 GM/DL (3.2-4.5); CHLORIDE 104 MMOL/L (98-107); POTASSIUM 3.7 MMOL/L (3.6-5.0); SODIUM 134 MMOL/L (135-145)
[2020-06-07 07:26] LABS: CALCIUM 8.1 MG/DL (8.5-10.1)
[2020-06-07 07:27] LABS: GLUCOSE 85 MG/DL (70-105)
[2020-06-07 07:28] LABS: TOTAL PROTEIN 5.7 GM/DL (6.4-8.2)
[2020-06-07 07:29] LABS: BILIRUBIN,TOTAL 0.3 MG/DL (0.1-1.0); CARBON DIOXIDE 20 MMOL/L (21-32)
[2020-06-07 07:31] LABS: ALKALINE PHOSPHATASE 61 U/L (40-136); CREATININE SERUM 0.79 MG/DL (0.60-1.30); GFR ESTIMATED > 60
[2020-06-07 07:32] LABS: BUN/CREATININE RATIO 4
[2020-06-07 07:34] LABS: ALANINE AMINOTRANSFERASE 20 U/L (0-55)
[2020-06-07 08:00] VITALS: BP 154/80
[2020-06-07] MEDS: CIPROFLOXACIN 400 MG/D5W 200 ML (PRE-MIX) IV SCH (09:07)
[2020-06-07] MEDS: DULoxetine 30 MG (CYMBALTA) CAP PO SCH (09:08)
[2020-06-07] MEDS: OXcarbazepine (TRILEPTAL) 300 MG TAB PO SCH (09:08)
[2020-06-07] MEDS: TIMOLOL MALEATE 0.5% 5 ML (TIMOPTIC) BTL OS SCH (09:09)
[2020-06-07] MEDS: BRIMONIDINE 0.2% (ALPHAGAN) OPHTH SOLN 5 ML BTL OS SCH (09:09)
[2020-06-07] MEDS: ENOXAPARIN 60 MG/0.6 ML (LOVENOX) SYR SC SCH (10:19)
[2020-06-07] MEDS ORDERED: VANC125C5 PO (10:54)
--- NOTE | 2020-06-07 10:55 | Discharge Summary ---
Discharge Summary Hospital Course Was the Problem List Reviewed?: Yes Hospital Course Date of Admission: Jun 03, 2020 at 23:30 Admission Diagnosis : Family Physician/Provider: [place] Date of Discharge: 06/07/20 Discharge Diagnosis: acute colitis, kidney stones, abnormal UA but UCX no infection Hospital Course: Hospital Course: Pt had an uneventful hospital course for 5 days after he was admitted for colitis and sepsis. C-diff came back preliminary positive but the final was negative. But he was improved on Vancomycin PO and he was placed on Cipro that was discontinued after urine cultures showed a contaminant. Kidney stones will be addressed by Dr. Machado, he will see him in close follow up. Pt was discharged on a few days of Vancomycin PO to help any type of early c-diff colitis or residual. Labs and Pending Lab Test: Laboratory Tests 06/07/20 06:48: White Blood Count 6.3, Red Blood Count 4.33, Hemoglobin 11.1L, Hematocrit 36L, Mean Corpuscular Volume 82, Mean Corpuscular Hemoglobin 26, Mean Corpuscular Hemoglobin Concent 31L, Red Cell Distribution Width 15.6H, Platelet Count 184, Mean Platelet Volume 9.5, Immature Granulocyte % (Auto) 1, Neutrophils (%) (Auto) 52, Lymphocytes (%) (Auto) 30, Monocytes (%) (Auto) 13H, Eosinophils (%) (Auto) 4, Basophils (%) (Auto) 1, Neutrophils # (Auto) 3.3, Lymphocytes # (Auto) 1.9, Monocytes # (Auto) 0.8, Eosinophils # (Auto) 0.3, Basophils # (Auto) 0.0, Immature Granulocyte # (Auto) 0.1, Sodium Level 134L, Potassium Level 3.7, Chloride Level 104, Carbon Dioxide Level 20L, Anion Gap 10, Blood Urea Nitrogen 3L, Creatinine 0.79, Estimat Glomerular Filtration Rate > 60, BUN/Creatinine Ratio 4, Glucose Level 85, Calcium Level 8.1L, Corrected Calcium 8.8, Total Bilirubin 0.3, Aspartate Amino Transf (AST/SGOT) 24, Alanine Aminotransferase (ALT/SGPT) 20, Alkaline Phosphatase 61, Total Protein 5.7L, Albumin 3.1L Microbiology 06/04/20 C. difficile DNA Amplification - Final, Complete 06/04/20 C. difficile GDH Antigen & Toxins - Final, Complete 06/04/20 Stool Culture - Final, Complete See Comments 06/03/20 Blood Culture - Preliminary, Resulted No growth 06/03/20 Urine Culture - Final, Complete Staphylococcus aureus Mixed Bacterial Yudelka Home Meds Active Reported Zioptan 0.0015% Eye Drops (Tafluprost/Pf) 1 Each Droperette 1 Each OS HS Omeprazole 20 Mg Capsule.dr 20 Mg PO DAILY Metronidazole 500 Mg Tablet 500 Mg PO TID STARTED TAKING 06/03/2020 7 DAY SUPPLY Hydrocodone-Acetamin 5-325 mg (Hydrocodone/Acetaminophen) 1 Each Tablet 1 Tab PO Q4H PRN Ciprofloxacin HCl 500 Mg Tablet 500 Mg PO BID STARTED TAKING 06/03/2020 7 DAY SUPPLY Timolol Maleate 0.5% (Timolol Maleate) 5 Ml Drops 1 Drop OS BID Trileptal (Oxcarbazepine) 600 Mg Tablet 900 Mg PO DAILY TAKES 1 & (600MG) TABS DAILY Trileptal (Oxcarbazepine) 600 Mg Tablet 600 Mg PO HS Brimonidine Tartrate 5 Ml Btl 1 Drop OS BID Cymbalta (Duloxetine HCl) 30 Mg Capsule.dr 30 Mg PO DAILY TAKES 60MG + 30MG TO EQUAL 90MG DAILY Duloxetine HCl 60 Mg Capsule.dr 60 Mg PO DAILY TAKES 60MG + 30MG TO EQUAL 90MG DAILY Fish Oil 1,000 mg Softgel ([place]-3/Dha/Epa/Fish Oil) 1,000 Mg Capsule 1,000 Mg PO BID Assessment/Pt Instructions [facility] 1 week Discharge Planning: <30 minutes discharge planning Discharge Instructions Discharge Diet: No Restrictions Discharge Physical Examination Vital Signs Vital Signs Date Time Temp Pulse Resp B/P (MAP) Pulse Ox O2 Delivery O2 Flow Rate FiO2 06/07/20 08:00 37.0 93 18 154/80 (104) 95 Room Air General Appearance: No Apparent Distress, WD/WN, Chronically ill Respiratory: Lungs Clear Cardiovascular: Regular Rate, Rhythm Neurologic/Psychiatric: Alert, Oriented x3, No Motor/Sensory Deficits, Normal Mood/Affect Allergies: Coded Allergies: Penicillins (Verified Allergy, Unknown, 12/01/18) Discharge Summary Date of Admission Jun 03, 2020 at 23:30 Date of Discharge Discharge Date: Jun 07, 2020 Admission Diagnosis Sepsis with tachycardia fever and leukocytosis Colitis confirmatory tests for C. difficile pending on Flagyl, and Cipro and oral vancomycin Urinary tract infection culture pending Nephrolithiasis possibly infected-will need urology follow-up Bipolar disorder Appreciate Dr. Boogie's help Discharge Diagnosis Assessment: Sepsis UTI C diff colitis Hydronephrosis Plan: Diarrhea management Dr Machado UTI tx RADHA MCKAY DO Jun 07, 2020 10:55
--- NOTE | 2020-06-07 10:56 | Progress Note ---
INEZ MURILLO MED STUDENT 06/07/20 1056: Progress Note Hospital Course 06/03/20 -PT return to ED from yesterdays previous visit due to continued upper abdominal pain and bloody, loose stools -WBC 14.7 CRP 18.31 -Admit with continued antibiotics and pain control 06/04/20 -Dr. Boogie consulted: notes UTI, colitis, and C. diff pending -Conservative bowel rest -Continued antibiotics (flagyl, cipro, and oral vanc) 06/05/20 -Dr. Machado consulted: due to bilateral hydronephrosis from long standing nephrolithiasis -C. diff positive, confirmatory test negative -Flagyl DCed -Dr. Eaton informed: pt already had out patient appointment made in regards to current condition -Will follow up with Dr. Machado and Dr. Eaton out patient 06/06/20 -Pt much improved -Decreased diarrhea -DCed telemetry -Dr. Eaton recs: advance diet as tolerated 06/07/20 -Pt noted to be stable and in good condition to be discharged -Will follow up with Dr. Machado and Dr. Eaton outpatient -[facility] as requested by pt TIERRA MCKAY DO 06/08/20 0518: Supervisory-Addendum Brief Verification & Attestation Participated in pt care: history, MDM, physical Personally performed: exam, history, MDM, supervision of care Care discussed with: Medical Student Procedures: n/a Results interpretation: Verified all documentation Verification and Attestation of Medical Student E/M Service A medical student performed and documented this service in my presence. I reviewed and verified all information documented by the medical student and made modifications to such information, when appropriate. I personally performed the physical exam and medical decision making. Tierra Mckay, Jun 08, 2020,05:18 INEZ MURILLO MED STUDENT Jun 07, 2020 10:56 TIERRA MCKAY DO Jun 08, 2020 05:18
--- NOTE | 2020-06-07 13:11 | Occupational Therapy Eval ---
OT Evaluation-General/PLF Medical Diagnosis Admission Date Jun 03, 2020 at 23:30 Medical Diagnosis: Sepsis with tachycardia, acute colitis Onset Date: Jun 03, 2020 Therapy Diagnosis Therapy Diagnosis: Weakness Height/Weight Height (Feet): 5 Height (Inches): 6.00 Weight (Pounds): 330 Weight (Ounces): 0.0 Precautions Precautions/Isolations: Fall Prevention, Standard Precautions Weight Bear Status Weight Bearing Restriction: Weight Bearing/Tolerated Referral Physician: Dr. Wright Referral Reason: Activity Tolerance, Self Care, Evaluation/Treatment, Strengthening/ROM Medical History Additional Medical History Eye surgery, developmental disorder, bipolar, anxiety Reviewed History: Yes Social History Home: Single Level Current Living Status: Spouse Entry Into Home: Stairs With Railing Steps Into Home: 4 ADL-Prior Level of Function SCALE: Activities may be completed with or without assistive devices. 4-Ggnnnjikbm-ldpvvtk completes the activity by him/herself with no assistance from a helper. 5-Set-up or Clean-up Assistance-helper sets up or cleans up; patient completes activity. Afton assists only prior to or following the activity. 4-Supervision or Touching Assistance-helper provides verbal cues and/or touching/steadying and/or contact guard assistance as patient completes activity. Assistance may be provided throughout the activity or intermittently. 3-Partial/Moderate Assistance-helper does LESS THAN HALF the effort. Afton lifts, holds or supports trunk or limbs, but provides less than half the effort. 2-Substantial/Maximal Assistance-helper does MORE THAN HALF the effort. Afton lifts or holds trunk or limbs and provides more than half the effort. 6-Ogrzhxjel-pnjtcl does ALL the effort. Patient does none of the effort to complete the activity. Or, the assistance of 2 or more helpers is required for the patient to complete the activity. If activity was not attempted, code reason: 7-Patient Refused. 9-Not Applicable-not attempted and the patient did not perform the activity b efore the current illness, exacerbation or injury. 10-Not Attempted due to Environmental Limitations-(lack of equipment, weather restraints, etc.). 88-Not Attempted due to Medical Conditions or Safety Concerns. ADL PLOF Comments Pt's spouse in room. Pt, spouse, and OT talk about pt's prior level. At home typically, pt. is on his own throughout day as his spouse works and is in school. He does not use a walker and does not have one. He is independent in the home with ambulation. He is independent with showering and dressing, but does occasionally need assist with donning socks and shoes. Pt. and spouse educated in adaptive equipment, but not interested at this time. Pt. states that he is unable to fully get self clean at times during toileting tasks, and either his spouse assists him or he "jumps" in the shower to cleanse self. Self Care: Needed Some Help Functional Cognition: Unknown DME/Equipment: Shower OT Current Status Subjective No pain reported. Appearance Pt. up in chair dressed. Alert and oriented. Agrees to work with OT. Mental Status/Objective Patient Orientation: Person, Place Current Glasses/Contacts: Yes Upper Extremity ROM WFL ADL-Treatment Eating (QC): 6 (per pt) Upper Body Dressing (QC): 5 (per pt and spouse he dressed self after set up.) Lower Body Dressing (QC): 5 On/Off Footwear (QC): 3 Other Treatments Pt. and spouse in room. Pt. already dressed. Per pt. and spouse he had already dressed self after set up. OT and pt. ambulated in kaur with CGA using walker. Pt. requested walker. Pt. stable and ambulated approximately 100 feet. Pt. states that he doesn't typically use walker. When coming back in room, he put the walker to the side and ambulated the rest of the way to his chair. He did not seem to have any issues and appears to be at baseline. Pt. reports he is ready to leave. Notified nursing of pt's ability at this time. Education OT Patient Education: Correct positioning, Progress toward Goal/Update tx plan, Purpose of tx/functional activities, Reviewed precautions, Rehab process, Transfer techniques Teaching Recipient: Patient Teaching Methods: Demonstration Response to Teaching: Verbalize Understanding, Return Demonstration OT Care Home Goals Care Home Goals Time Frame: Jun 07, 2020 Additional Goals: 1-Demonstrate ADL Tasks, 2-Verbalize Understanding 1=Demonstrate adherence to instructed precautions during ADL tasks. 2=Patient will verbalize/demonstrate understanding of assistive devices/modifications for ADL. 3=Patient will improve strength/tolerance for activity to enable patient to perform ADL's. OT Education/Plan Problem List/Assessment Assessment: No Skilled OT Needs ID'd Discharge Recommendations Plan/Recommendations: Discontinue OT Therapy Discharge Recommendati: Home & Family Treatment Plan/Plan of Care Plan of Care: OTHER (Discharge home with spouse) Treatment Duration: Jun 07, 2020 Frequency: 1 time per week Time/GCodes Start Time: 11:00 Stop Time: 11:20 Total Time Billed (hr/min): 20 Billed Treatment Time 1, LUZ GRANADOS OT Jun 07, 2020 13:11
== END 2020-06-07 11:43 | disposition home or self-care (01) | DRG 872 ==
LOC: EDUNIT# 22:26 → ER 22:28 → 4TH 23:30
PROVIDERS: ADMIT Internal Medicine; ATTEND Internal Medicine
DX: A41.9 Sepsis, unspecified organism (principal); A04.72 Enterocolitis due to Clostridium difficile, not specified as recurrent; N13.2 Hydronephrosis with renal and ureteral calculous obstruction; Z68.43 Body mass index [BMI] 50.0-59.9, adult; Z88.0 Allergy status to penicillin; F17.210 Nicotine dependence, cigarettes, uncomplicated; F31.9 Bipolar disorder, unspecified; F41.9 Anxiety disorder, unspecified; F90.9 Attention-deficit hyperactivity disorder, unspecified type; D64.9 Anemia, unspecified; D72.829 Elevated white blood cell count, unspecified; E66.01 Morbid (severe) obesity due to excess calories
CPT/HCPCS: 36415; 74018; 80053; 81000; 82150; 83605; 83690; 85007; 85025; 85027; 85652; 86141; 87015; 87040; 87045; 87046; 87077; 87088; 87186; 87324; 87449; 87493; 87899; 94760; 96361; 96374; 96375

== ENCOUNTER 2020-06-19 21:26 | Emergency (ER) | payer MEDICARE, MEDICAID ==
[~2020-06-19] VITALS: Ht 170 cm; Wt 147.0 kg
[~2020-06-19 21:26] MED LIST changes: +METR-145 PO; +OMEP20CA18 PO; +VANC125C5 PO
[2020-06-19 21:39] VITALS: BP 170/104
--- NOTE | 2020-06-19 21:54 | ED Lower Extremity ---
General Stated Complaint: BILAT FOOT DISCOLORATION Source: patient Exam Limitations: no limitations History of Present Illness Date Seen by Provider: Jun 19, 2020 Time Seen by Provider: 21:42 Initial Comments Patient and his present to the ER by private conveyance from home with chief complaint that when she was trimming his nails prior to arrival she noticed all of his toes were purple. He did not lose sensation he denies a history of peripheral arterial disease, coronary disease, diabetes. He says he was not having any problems but she was concerned so she called his mom and they encouraged him to present to the ER. He is still having no pain numbness tingling or weakness in his feet. He was in the hospital a few weeks ago for C. difficile colitis and has concluded his symptoms as well as antibiotics and has follow-up later in the week with Alfredo [facility]lvarez at [facility]. Allergies and Home Medications Allergies Coded Allergies: Penicillins (Verified Allergy, Unknown, 12/01/18) Home Medications Brimonidine Tartrate 5 Ml Btl, 1 DROP OS BID, (Reported) Duloxetine HCl 60 Mg Capsule.dr, 60 MG PO DAILY, (Reported) TAKES 60MG + 30MG TO EQUAL 90MG DAILY Duloxetine HCl 30 Mg Capsule.dr, 30 MG PO DAILY, (Reported) TAKES 60MG + 30MG TO EQUAL 90MG DAILY Hydrocodone/Acetaminophen 1 Each Tablet, 1 TAB PO Q4H PRN for PAIN-MODERATE (5- 7), (Reported) [place]-3/Dha/Epa/Fish Oil 1,000 Mg Capsule, 1,000 MG PO BID, (Reported) Omeprazole 20 Mg Capsule.dr, 20 MG PO DAILY, (Reported) Oxcarbazepine 600 Mg Tablet, 600 MG PO HS, (Reported) Oxcarbazepine 600 Mg Tablet, 900 MG PO DAILY, (Reported) TAKES 1 & (600MG) TABS DAILY Tafluprost/Pf 1 Each Droperette, 1 EACH OS HS, (Reported) Timolol Maleate 5 Ml Drops, 1 DROP OS BID, (Reported) Vancomycin HCl 125 Mg Capsule, 125 MG PO Q6HR Prescribed by: RADHA MCKAY on 06/07/20 1054 Patient Home Medication List Home Medication List Reviewed: Yes Review of Systems Constitutional: No chills, No diaphoresis EENTM: No ear discharge, No ear pain Respiratory: No cough, No short of breath Cardiovascular: No edema, No Hx of Intervention, No palpitations Gastrointestinal: No abdominal pain, No nausea Past Rbibnxr-Rmkwnl-Xolsuw Hx Patient Social History Alcohol Use: Denies Use Drug of Choice: DENIES Smoking Status: Current Everyday Smoker Type Used: Cigarettes Recent Hopitalizations: No Immunizations Up To Date Date of Pneumonia Vaccine: Dec 29, 2016 Seasonal Allergies Seasonal Allergies: No Past Medical History Surgeries: Yes (KIDNEY SX CHILD;CATARACT SURGERY;YAG CAPSULOTOMY;COLONOSCOPY/POLYPECTOMY) Eye Surgery, Renal Respiratory: No Cardiac: No Neurological: Yes (PSYCH PROBLEMS) Developmental Disorder Genitourinary: Yes (KIDNEY SURGERY CHILD) Kidney Stones Gastrointestinal: Yes (COLONOSCOPY/POLYPECTOMY 2018) Polyps Musculoskeletal: No Endocrine: Yes (OBESITY) HEENT: Yes (CATARACT SURGERY; YAG CAPSULOTOMY) Cataract, Glaucoma Cancer: No Psychosocial: Yes ADD/ADHD, Anxiety, Bipolar, Personality Disorder, Depression Integumentary: No Blood Disorders: No Family Medical History No Pertinent Family Hx Physical Exam Vital Signs Capillary Refill : Height, Weight, BMI Height: 5'6.00" Weight: 330lbs. 0.0oz. [id number]; 54.81 BMI Method:Stated General Appearance: no apparent distress, obese HEENT: PERRL/EOMI, pharynx normal Neck: full range of motion, normal inspection Cardiovascular: normal peripheral pulses, regular rate, rhythm, other (Posterior tibial 2+ out of 4 bilateral, symmetric. Dorsal pedis Allis 2+ out of 4 bilateral, symmetric.) Respiratory: no respiratory distress, no accessory muscle use Legs: bilateral leg non-tender, bilateral leg normal inspection, bilateral leg normal range of motion, bilateral leg no evidence of injury Knees: bilateral knee non-tender, bilateral knee normal inspection, bilateral knee normal range of motion, bilateral knee no evidence of injury Feet: bilateral foot non-tender, bilateral foot normal inspection, bilateral foot normal range of motion, bilateral foot no evidence of injury, bilateral foot other (Onychomycosis all 10 toes.) Progress/Results/Core Measures Progress Progress Note : Time: 21:52 Progress Note We explained perhaps this was positional and if it happens again he should get up and walk around. If he has loss of feeling or extreme pain in his feet then he should return to the ER otherwise keep his follow-up appointment. Departure Impression Primary Impression: Discoloration of skin of toe Additional Impression: Onychomycosis Disposition: 01 HOME, SELF-CARE Condition: Stable Departure-Patient Inst. Decision time for Depature: 21:53 Referrals: [facility] (PCP/Family) Primary Care Physician Patient Instructions: Fungal Nail Infections Add. Discharge Instructions: If he has discoloration of his toes again you might try changing position or getting up and walking around to see if this helps alleviate. You may also elevate the feet above the level of the heart as sometimes swelling can put pressure on the veins draining his feet. After you have done all of your follow-ups with your other doctors you might talk to your primary care provider about treating your toenail fungus with a pill. Promptly return to the ER if you have sudden loss of sensation or incredible pain in your feet or other worrisome symptoms. KELLY ORTIZ Jun 19, 2020 21:54
== END 2020-06-19 21:59 | disposition home or self-care (01) ==
LOC: EDUNIT# 21:26 → ER 21:27
DX: L81.9 Disorder of pigmentation, unspecified (principal); B35.1 Tinea unguium; E66.9 Obesity, unspecified; F17.210 Nicotine dependence, cigarettes, uncomplicated; Z86.010 Personal history of colon polyps; Z88.0 Allergy status to penicillin
CPT/HCPCS: 99281

== ENCOUNTER 2020-07-25 05:32 | Outpatient (CLI) | payer MEDICARE, MEDICAID | END 2020-07-26 13:40 | disposition home or self-care (01) | LOC: PREOP 05:32 | PROVIDERS: ATTEND Surgery | DX: Z01.818 Encounter for other preprocedural examination (principal) ==

== ENCOUNTER 2020-07-26 05:33 | Outpatient (CLI) | payer MEDICARE, MEDICAID ==
[~2020-07-26] VITALS: Ht 170.2 cm; Wt 152.9 kg
== END 2020-07-26 13:44 | disposition home or self-care (01) ==
LOC: PREOP 05:33
PROVIDERS: ATTEND Urology
DX: Z01.818 Encounter for other preprocedural examination (principal)

== ENCOUNTER 2020-08-02 07:20 | Day surgery (SDC) | payer MEDICARE, MEDICAID ==
[2020-08-02] VITALS (10 sets, daily range): BP systolic 130–157; BP diastolic 66–86
[~2020-08-02] VITALS: Ht 170 cm; Wt 152.9 kg
--- NOTE | 2020-08-02 07:08 | Progress Note-Pre Operative ---
Pre-Operative Progress Note H&P Reviewed The H&P was reviewed, patient examined and no changes noted. Date Seen by Provider: August 02, 2020 Time Seen by Provider: 07:40 Date H&P Reviewed: August 02, 2020 Time H&P Reviewed: 07:40 Pre-Operative Diagnosis: H/O UTIS POSSIBLE BLADDER STONE CHUY WORKMAN MD August 02, 2020 07:08
--- NOTE | 2020-08-02 07:38 | Progress Note-Pre Operative ---
Pre-Operative Progress Note H&P Reviewed The H&P was reviewed, patient examined and no changes noted. Date Seen by Provider: August 02, 2020 Time Seen by Provider: 07:30 Date H&P Reviewed: August 02, 2020 Time H&P Reviewed: 07:30 Pre-Operative Diagnosis: hx polyps, blood in stool ISSA GALVEZ DO August 02, 2020 07:37
[2020-08-02] MEDS ORDERED: ONDANSETRON 4 MG/2 ML (SDV) Z0FRAN ONE (07:55)
[2020-08-02] MEDS ORDERED: LIDOCAINE PF 2% 5 ML (XYLOCAINE) VIAL ONE (07:55)
[2020-08-02] MEDS ORDERED: ROCURONIUM 10 MG/ML 5 ML SYRINGE IV ONE (07:55)
[2020-08-02] MEDS ORDERED: proPOfol 200 MG/20 ML (DIPRIVAN) VIAL IV ONE (07:55)
[2020-08-02] MEDS ORDERED: SEVOFLURANE (ULTANE) 15 ML INHAL SOLN ONE ×2 (07:55→09:38)
[2020-08-02] MEDS ORDERED: MIDAZOLAM 2 MG/2 ML (VERSED) VIAL ONE (07:55)
[2020-08-02] MEDS ORDERED: fentaNYL INJ 100 MCG/2 ML AMP ONE (07:55)
[2020-08-02] MEDS: LACTATED RINGERS 1,000 ML IV PRN ×2 (08:08→10:05)
--- NOTE | 2020-08-02 08:20 | Progress Note-Post Operative ---
Post-Operative Progess Note Surgeon (s)/Farm Hand (s) Surgeon CHUY WORKMAN MD Farm Hand: NONE Pre-Operative Diagnosis H/O UTIS, POSSIBLE BLADDER STONE Post-Operative Diagnosis SAME NO STONE Procedure & Operative Findings Date of Procedure 08/02/20 Procedure Performed/Findings CYSTOSCOPY Anesthesia Type GENERAL Estimated Blood Loss Estimated blood loss (mL): NONE Specimens/Packing Specimens Removed NONE Packing: NONE CHUY WORKMAN MD August 02, 2020 08:20
[2020-08-02] MEDS ORDERED: PHENYLEPHRINE 100 MCG/ML 10 ML (ANESTHESIA) SYR ONE (08:59)
[2020-08-02] MEDS ORDERED: GLYCOPYRROLATE 0.2 MG/ML (ROBINUL) 2 ML VIAL ONE (08:59)
[2020-08-02] MEDS ORDERED: NEOSTIGMINE 3 MG/3 ML VIAL ONE (08:59)
--- NOTE | 2020-08-02 09:49 | Anesthesia-General Post-Op ---
General Patient Condition Mental Status/LOC: Same as Preop Cardiovascular: Satisfactory Nausea/Vomiting: Absent Respiratory: Satisfactory Pain: Controlled Complications: Absent Post Op Complications Complications None Follow Up Care/Instructions Patient Instructions None needed. Anesthesia/Patient Condition Patient Condition Patient is doing well, no complaints, stable vital signs, no apparent adverse anesthesia problems. No complications reported per nursing. ELVA SHEARER CRNA August 02, 2020 09:49
--- NOTE | 2020-08-02 15:33 | OPERATIVE REPORT ---
DATE OF SERVICE: 08/02/2020 PREOPERATIVE DIAGNOSES: History of urinary tract infection, possible bladder stone. POSTOPERATIVE DIAGNOSES: History of urinary tract infection, no stone. OPERATION PERFORMED: Cystoscopy. SURGEON: Randolph Workman MD. ANESTHESIA: General. COMPLICATIONS: None. DESCRIPTION OF PROCEDURE: Under satisfactory general anesthesia, the patient in lithotomy position, genitalia were prepped and draped in the usual sterile fashion. A 23-Slovenian cystoscope was introduced under vision. The anterior urethra was normal. The prostate showed a median bar. The bladder was entered and carefully inspected with both lenses. There was no stone, no bladder tumor and no foreign body. Bladder was evacuated and the cystoscope was removed. The patient tolerated the procedure and anesthesia well and remained for Dr. Eaton to perform his colonoscopy PLAN: I will see him back in 2 weeks at the office and we will refer him to [facility] to take care of his kidney stones. Job ID: [id number] DocumentID: [id number] Dictated Date: 08/02/2020 09:07:55 Rn Diabetes Educator Date: 08/02/2020 15:32:39 Dictated By: RANDOLPH WORKMAN MD
--- NOTE | 2020-08-03 02:36 | OPERATIVE REPORT ---
DATE OF SERVICE: 08/02/2020 PREOPERATIVE DIAGNOSES: Blood in stool, history of polyps. POSTOPERATIVE DIAGNOSES: Rectal mass, cecal polyp. PROCEDURE: Colonoscopy with hot biopsy polypectomy of cecum with cold biopsies of rectal mass. SURGEON: Issa Eaton DO ANESTHESIA: Per FINANCIAL UNDERWRITER. ESTIMATED BLOOD LOSS: Scant. COMPLICATIONS: None. INDICATIONS: The patient is a 49-year-old male who has been having blood in his stools. He has a history of polyps. He understands risks and benefits of procedure and wishes to proceed. Consent was signed in the chart. DESCRIPTION OF PROCEDURE: The patient was taken to the operating suite, he was in lithotomy position. Digital rectal exam was performed. At the anus, there were no palpable polyps, masses or ulcerations. The scope was inserted into the rectum and encountered a large rectal mass circumferentially, but not obstructing. The scope was inserted all the way to the cecum without difficulty. Prep was adequate. Small polyp within the cecum was present, which hot biopsy polypectomy was performed. Scope was then continuously retracted back. There were no polyps, masses or ulcerations within the remainder of the cecum, ascending, transverse, descending and sigmoid colon. Rectum mass was noted again and multiple cold biopsies were obtained. Scope was then slowly retracted back until completely removed. The patient tolerated procedure well without any complications and taken to recovery room in stable condition. RECOMMENDATIONS: The patient will follow up on biopsies and further management pending results. If not diagnostic of rectal cancer, we will need repeat flexible sigmoidoscopy and biopsies. Job ID: [id number] DocumentID: [id number] Dictated Date: 08/02/2020 22:12:46 Auto Body Builder Apprentice Date: 08/03/2020 02:36:03 Dictated By: ISSA EATON DO
== END 2020-08-02 11:45 ==
LOC: SDC 07:20
PROVIDERS: ATTEND Urology
DX: K92.1 Melena (principal); K63.5 Polyp of colon; K63.89 Other specified diseases of intestine; A04.72 Enterocolitis due to Clostridium difficile, not specified as recurrent; E66.01 Morbid (severe) obesity due to excess calories; F90.9 Attention-deficit hyperactivity disorder, unspecified type; F31.9 Bipolar disorder, unspecified; F41.9 Anxiety disorder, unspecified; Z88.0 Allergy status to penicillin; Z87.440 Personal history of urinary (tract) infections; Z79.899 Other long term (current) drug therapy; Z79.891 Long term (current) use of opiate analgesic; Z68.43 Body mass index [BMI] 50.0-59.9, adult
CPT/HCPCS: 87081

== ENCOUNTER → 2020-08-22 | Outpatient (CLI) | payer MEDICARE, MEDICAID ==
[~2020-08-22] VITALS: Ht 170.2 cm; Wt 152.9 kg
== END ==
LOC: PREOP 10:39
PROVIDERS: ATTEND Surgery
DX: Z01.812 Encounter for preprocedural laboratory examination (principal); K62.89 Other specified diseases of anus and rectum

== ENCOUNTER 2020-08-25 12:55 | Day surgery (SDC) | payer MEDICARE, MEDICAID ==
[~2020-08-25] VITALS: Ht 170.2 cm; Wt 152.9 kg
[2020-08-25] MEDS ORDERED: LACTATED RINGERS 1,000 ML IV ONE (13:00)
[2020-08-25] MEDS ORDERED: FLEET ENEMA ADULT 1 EA BTL ONE ×2 (13:32→13:53)
[2020-08-25] MEDS ORDERED: LACTATED RINGERS 1,000 ML IV STA (13:36)
[2020-08-25] MEDS: FLEET ENEMA ADULT 1 EA BTL PR PRN ×2 (13:45→14:10)
[2020-08-25 13:55] VITALS: BP 126/69
[2020-08-25] MEDS ORDERED: MIDAZOLAM 2 MG/2 ML (VERSED) VIAL ONE (14:08)
[2020-08-25] MEDS ORDERED: PROPOFOL INJECTION 50 ML IV ONE (14:08)
[2020-08-25 14:44] VITALS: BP 81/42
--- NOTE | 2020-08-25 14:46 | Anesthesia-General Post-Op ---
MAC Patient Condition Mental Status/LOC: Same as Preop Cardiovascular: Satisfactory Nausea/Vomiting: Absent Respiratory: Satisfactory Pain: Controlled Complications: Absent Post Op Complications Complications None Follow Up Care/Instructions Patient Instructions None needed. Anesthesiology Discharge Order Discharge Order Patient is doing well, no complaints, stable vital signs, no apparent adverse anesthesia problems. No complications reported per nursing. REVA WALTON CRNA August 25, 2020 14:46
[2020-08-25 14:50] VITALS: BP 86/47
--- NOTE | 2020-08-25 14:55 | Discharge Inst-Simple/Standard ---
Discharge Inst-Standard Patient Instructions/Follow Up Plan of Care/Instructions/FU: 2 weeks Uma Activity as Tolerated: Yes Discharge Diet: Regular Diet ISSA GALVEZ DO August 25, 2020 14:55
[2020-08-25 15:16] VITALS: BP 144/71
[2020-08-25 15:18] VITALS: BP 144/71
--- NOTE | 2020-08-26 02:14 | OPERATIVE REPORT ---
DATE OF SERVICE: 08/25/2020 PREOPERATIVE DIAGNOSIS: Rectal mass. POSTOPERATIVE DIAGNOSIS: Rectal mass. PROCEDURE: Flexible sigmoidoscopy with biopsies. SURGEON: Issa Eaton DO ANESTHESIA: Per BREAD MOLDER. ESTIMATED BLOOD LOSS: Scant. COMPLICATIONS: None. INDICATIONS: The patient is a 49-year-old male with a history of rectal mass. The patient had biopsies performed, which adenomatous tissue and felt needed to rebiopsy. The patient understands risks and benefits of procedure and wishes to proceed. Consent was signed in the chart. DESCRIPTION OF PROCEDURE: The patient was taken to the endoscopy suite, placed in left lateral recumbent position. Timeout was performed. Digital rectal exam was performed. There were no palpable polyps, masses or ulcerations. Scope was inserted. A small amount of stool still present despite enemas. This was able to be bypassed. The mass was able to be encountered at approximately 8 to 10 cm. The scope was continued to be advanced into the sigmoid colon. There were no polyps, masses or ulcerations visualized within the sigmoid colon. Scope was slowly retracted back to the rectum, where multiple cold biopsies were obtained of the mass. Scope was then slowly retracted until completely removed. The patient tolerated procedure well without any complications, taken to recovery room in stable condition. RECOMMENDATIONS: The patient to follow up in the office on biopsies. Further recommendations pending. Job ID: [id number] DocumentID: [id number] Dictated Date: 08/25/2020 21:23:25 Dry Ice Machine Operator Date: 08/26/2020 02:13:39 Dictated By: ISSA EATON DO
== END 2020-08-25 15:40 | disposition home or self-care (01) ==
LOC: SDC 12:55 → ENDO 15:40
PROVIDERS: ATTEND Surgery
DX: D12.8 Benign neoplasm of rectum (principal); F41.9 Anxiety disorder, unspecified; F32.9 Major depressive disorder, single episode, unspecified; E66.01 Morbid (severe) obesity due to excess calories; Z68.43 Body mass index [BMI] 50.0-59.9, adult; Z79.899 Other long term (current) drug therapy

== ENCOUNTER → 2020-09-13 | Outpatient (CLI) | payer MEDICARE, MEDICAID ==
[~2020-09-13] MED LIST changes: +CATHETER FLUSH 10 ML SYR IV PRN; +HOLD METFORMIN - RECEIVED CONTRAST 20 ML VIAL IV SCH; +IOHEXOL 350 MG/ML 100 ML (OMNIPAQUE 350) VIAL IV ONE; +NS 100 ML (IVPB) BAG IV ONE
[2020-09-13 14:48] LABS: BASOPHILS % (AUTO) 1 % (0-10); EOSINOPHILS # (AUTO) 0.4 10^3/uL (0.0-0.3); EOSINOPHILS % (AUTO) 5 % (0-10); HEMATOCRIT 39 % (40-54); HEMOGLOBIN 12.3 g/dL (13.3-17.7); LYMPHOCYTES # (AUTO) 2.2 10^3/uL (1.0-4.0); LYMPHOCYTES % (AUTO) 27 % (12-44); MEAN CORPUSCULAR HEMOGLOBIN 26 pg (25-34); MEAN CORPUSCULAR HGB CONC 32 g/dL (32-36); MEAN CORPUSCULAR VOLUME 82 fL (80-99); MEAN PLATELET VOLUME 8.3 fL (9.0-12.2); MONOCYTES # (AUTO) 0.7 10^3/uL (0.0-1.0); MONOCYTES % (AUTO) 8 % (0-12); NEUTROPHILS % (AUTO) 60 % (42-75); PLATELET COUNT 249 10^3/uL (130-400); WHITE BLOOD COUNT 8.4 10^3/uL (4.3-11.0)
[2020-09-13 15:14] LABS: ALANINE AMINOTRANSFERASE 12 U/L (0-55); ALKALINE PHOSPHATASE 72 U/L (40-136); BILIRUBIN,TOTAL 0.3 MG/DL (0.1-1.0); BUN/CREATININE RATIO 12; CALCIUM 9.4 MG/DL (8.5-10.1); CARBON DIOXIDE 24 MMOL/L (21-32); CHLORIDE 104 MMOL/L (98-107); CREATININE SERUM 1.01 MG/DL (0.60-1.30); GFR ESTIMATED > 60; GLUCOSE 94 MG/DL (70-105); POTASSIUM 4.1 MMOL/L (3.6-5.0); SODIUM 138 MMOL/L (135-145); TOTAL PROTEIN 7.5 GM/DL (6.4-8.2)
--- NOTE | 2020-09-13 17:32 | Diagnostic Imaging Report ---
PROCEDURE: CT chest, abdomen and pelvis with contrast. TECHNIQUE: Multiple contiguous axial images were obtained through the chest, abdomen, and pelvis after the administration of intravenous contrast. Auto Exposure Controls were utilized during the CT exam to meet ALARA standards for radiation dose reduction. INDICATION: Rectal carcinoma. FINDINGS: Lungs are clear. There are no effusions or pneumothoraces. There is no hilar or mediastinal lymphadenopathy. Liver appears normal. Gallbladder appears normal. Pancreas appears normal. Spleen appears normal. Adrenals appear normal. There is a 2 cm calculus in the right renal pelvis. There appears to be small calculi in a lower pole calyces of both kidneys. There is no hydronephrosis. There are no masses seen. There is minimal calcific atherosclerosis of the aorta. There is no retroperitoneal lymphadenopathy in the abdomen. Small bowel is not dilated. Pancreas is unremarkable. There is a 4 cm in length rectal mass that measures 4.3 cm in diameter. This appears to be causing some luminal narrowing. There is no pelvic or perirectal lymphadenopathy. IMPRESSION: 4 cm lobulated mass in the rectum suspicious for neoplasm. No evidence for distal metastases. Dictated by: Dictated on workstation # [id number]
== END ==
LOC: RAD 14:15
PROVIDERS: ATTEND Surgery
DX: C20 Malignant neoplasm of rectum (principal)
CPT/HCPCS: 36415; 71260; 74177; 80053; 82378; 85025

== ENCOUNTER 2020-09-26 05:38 | Outpatient (CLI) | payer MEDICARE, MEDICAID ==
[~2020-09-26] VITALS: Ht 170.2 cm; Wt 149.1 kg
[~2020-09-26 05:38] MED LIST changes: -CATHETER FLUSH 10 ML SYR IV PRN; -HOLD METFORMIN - RECEIVED CONTRAST 20 ML VIAL IV SCH; -IOHEXOL 350 MG/ML 100 ML (OMNIPAQUE 350) VIAL IV ONE; -NS 100 ML (IVPB) BAG IV ONE
[2020-09-26] MEDS ORDERED: LISI20TA26 PO (09:27)
[2020-09-26] MEDS ORDERED: ACHD5005 PO (09:27)
== END 2020-09-26 10:00 | disposition home or self-care (01) ==
LOC: PREOP 05:38
PROVIDERS: ATTEND Surgery
DX: Z01.818 Encounter for other preprocedural examination (principal)

== ENCOUNTER 2020-09-28 09:15 | Day surgery (SDC) | payer MEDICARE, MEDICAID ==
[~2020-09-28] VITALS: Ht 170.8 cm; Wt 149.0 kg
[2020-09-28] VITALS (8 sets, daily range): BP systolic 120–133; BP diastolic 67–95
[~2020-09-28 09:15] MED LIST changes: +LACTATED RINGERS 1,000 ML IV PRN; +LISI20TA26 PO
[2020-09-28] MEDS ORDERED: CLINDAMYCIN 600 MG/50 ML IV ONE (09:30)
--- NOTE | 2020-09-28 09:35 | Progress Note-Pre Operative ---
Pre-Operative Progress Note H&P Reviewed The H&P was reviewed, patient examined and no changes noted. Date Seen by Provider: Sep 28, 2020 Time Seen by Provider: 09:34 Date H&P Reviewed: Sep 28, 2020 Time H&P Reviewed: 09:34 Pre-Operative Diagnosis: rectal carcinoma ISSA GALVEZ DO Sep 28, 2020 09:35
[2020-09-28] MEDS ORDERED: LIDOCAINE/EPI 1%-1:100,000 (XYLOCAINE) 20ML ONE ×2 (10:19→11:19)
[2020-09-28] MEDS ORDERED: 0.9% SODIUM CHLORIDE PF INJ 20 ML VIAL ONE (10:19)
[2020-09-28] MEDS ORDERED: HEParin (CENTRAL IV FLUSH) 500 UNIT/5 ML SYR ONE (10:19)
[2020-09-28] MEDS ORDERED: PROPOFOL INJECTION 50 ML IV ONE (10:29)
[2020-09-28] MEDS ORDERED: MIDAZOLAM 2 MG/2 ML (VERSED) VIAL ONE (10:30)
[2020-09-28] MEDS ORDERED: KETAMINE SYRINGE 50 MG/5 ML SYRINGE ONE (11:05)
--- NOTE | 2020-09-28 11:37 | Progress Note-Post Operative ---
Post-Operative Progess Note Surgeon (s)/Director Community Health Nursing (s) Surgeon ISSA GALVEZ DO Director Community Health Nursing: na Pre-Operative Diagnosis RECTAL CANCER Post-Operative Diagnosis same Procedure & Operative Findings Date of Procedure 09/28/20 Procedure Performed/Findings PROCEDURE: Right internal jugular port placement using ultrasound guidance. COMPLICATIONS: None. INDICATIONS: The patient is a 49 year old male with rectal carcinoma. Patient understands the risks and benefits of port placement and wished to proceed with the procedure. Consent was signed on the chart. PROCEDURE: The patient was taken to the operating suite, was prepped and draped in the sterile fashion. A surgical pause was performed. Ultrasound was used to locate the internal jugular vein. Once located anesthetic was infiltrated above it. Using micro-access kit, the right internal vein was accessed. Dark nonpulsatile blood was withdrawn. The wire was inserted. Fluoroscopy assured proper placement. The needle was removed. The micro-access dilator was advanced over the wire and the wire was removed. The regular wire was inserted and fluoroscopy assured proper placement. The wire was then secured. Local anesthetic was used to anesthetize from the neck for tunneling down to the right chest and for pocket creation. A 15 blade scalpel was used to make an incision over the right chest. Cautery was used to dissect down to the pectoral fascia. A pocket was created with blunt dissection. The dilator sheath was then advanced over the wire under fluoroscopy and the dilator and wire were removed. The Groshong catheter was inserted through the sheath and the sheath was then removed. The Groshong wire was removed. The catheter was then tunneled to the right chest pocket. Fluoroscopy was used to cut to length and this was then attached to the port which was then placed within the pocket. The port was then accessed without difficulty. It was then flushed with saline and then heparin. The subcutaneous tissues were then reapproximated using 3-0 Vicryl. The areas were then washed and dried. Skin Affix was placed over incision. The insertion point of the neck Skin Affix was placed over the incision. The patient tolerated the procedure well without complication and was taken to recovery room in stable condition. Chest x-ray is pending. Anesthesia Type mac c local Estimated Blood Loss Estimated blood loss (mL): minimal Specimens/Packing Specimens Removed ISSA Caraballo DO Sep 28, 2020 11:37
--- NOTE | 2020-09-28 11:39 | Discharge Inst-Simple/Standard ---
Discharge Inst-Standard Patient Instructions/Follow Up Plan of Care/Instructions/FU: 2 weeks clara Activity as Tolerated: No Discharge Diet: Regular Diet Other Inst to Patient Follow up Appt: Make appointment for 2 week. Instructions: No lifting greater than 10 pounds. No strenuous activity. May shower in 24 hours, no tub bath or soaking. Use incentive spirometer at home as directed. No Smoking Skin/Wound Care: You have special glue over your incision that will fall off on it's own. Ice pack on 15 min and off 30 min and repeat for first 48 hours. This will help reducing edema and discomfort. Symptoms to Report: Appetite Changes, Extremity Discoloration, Numbness/Tingling, Swelling Increased, Bleeding Excessive, Eyesight Changes, Pain Increased, Urine Color Change, Constipation(Persistent), Fever over 101 degree F, Pain/Pressure in chest, Urinating Difficulty, Cough Up/Vomit Blood, Heart Beat Irreg/Pounding, Pain/Pressure in jaw, Vaginal Bleeding Increase, Cramps in feet or legs, Lightheadedness, Pain/Pressure in shoulder, Diarrhea(Persistent), Memory Changes Suddenly, Questions/Concerns, Weight gain consecutive days, Dizziness/Fainting, Nausea/Vomiting, Shortness of Breath, Weight gain over 2 pounds If questions or concerns contact your physician Or seek help at emergency department. ISSA GALVEZ DO Sep 28, 2020 11:39
--- NOTE | 2020-09-28 11:50 | Anesthesia-General Post-Op ---
MAC Patient Condition Mental Status/LOC: Same as Preop Cardiovascular: Satisfactory Nausea/Vomiting: Absent Respiratory: Satisfactory Pain: Controlled Complications: Absent Post Op Complications Complications None Follow Up Care/Instructions Patient Instructions None needed. Anesthesiology Discharge Order Discharge Order Patient is doing well, no complaints, stable vital signs, no apparent adverse anesthesia problems. XI PALMA DO Sep 28, 2020 11:50
[2020-09-28] MEDS ORDERED: ONDANSETRON 4 MG/2 ML (SDV) Z0FRAN IVP PRN (12:00)
[2020-09-28] MEDS ORDERED: morphine INJ 10 MG/ML 1ML (SYR OR VIAL) IVP ONE (12:00)
--- NOTE | 2020-09-28 12:14 | Diagnostic Imaging Report ---
INDICATION: Post Groshong catheter placement. EXAMINATION: Frontal chest at 11:43 a.m. COMPARISON: 07/23/2019. FINDINGS: Heart is mildly enlarged. There is central vascular congestion. There is no pneumothorax or pleural fluid. The exam is done in expiration. Port-A-Cath is seen over the right chest with tip overlying the low SVC. IMPRESSION: No pneumothorax or pleural fluid following Port-A-Cath placement. Port-A-Cath catheter tip is overlying low SVC. There is mild central vascular congestion. Dictated by: Dictated on workstation # [id number]
--- NOTE | 2020-09-28 14:36 | Diagnostic Imaging Report ---
Indication: Fluoroscopy during Groshong catheter placement. Fluoroscopy was provided in the OR during Groshong catheter placement. 42 seconds of fluoroscopic time was utilized. A single image was obtained. The image is limited due to motion artifact. Impression: Fluoroscopy during a right-sided Groshong catheter placement. Dictated by: Dictated on workstation # [id number]
== END 2020-09-28 13:15 | disposition home or self-care (01) ==
LOC: SDC 09:15
PROVIDERS: ATTEND Surgery
DX: C20 Malignant neoplasm of rectum (principal); I10 Essential (primary) hypertension; K21.9 Gastro-esophageal reflux disease without esophagitis; F32.9 Major depressive disorder, single episode, unspecified; E66.01 Morbid (severe) obesity due to excess calories; Z68.43 Body mass index [BMI] 50.0-59.9, adult; Z79.2 Long term (current) use of antibiotics; Z88.0 Allergy status to penicillin; Z79.899 Other long term (current) drug therapy; Z79.891 Long term (current) use of opiate analgesic
CPT/HCPCS: 36561; 71045; 76000; 87081; C1788

== ENCOUNTER 2020-11-14 09:10 | Outpatient (RCR) | payer MEDICARE, MEDICAID ==
[2020-10-18 13:17] LABS: BASOPHILS % (AUTO) 1 % (0-10); EOSINOPHILS # (AUTO) 0.2 10^3/uL (0.0-0.3); EOSINOPHILS % (AUTO) 6 % (0-10); HEMATOCRIT 40 % (40-54); HEMOGLOBIN 12.2 g/dL (13.3-17.7); LYMPHOCYTES # (AUTO) 0.9 10^3/uL (1.0-4.0); LYMPHOCYTES % (AUTO) 20 % (12-44); MEAN CORPUSCULAR HEMOGLOBIN 26 pg (25-34); MEAN CORPUSCULAR HGB CONC 31 g/dL (32-36); MEAN CORPUSCULAR VOLUME 86 fL (80-99); MEAN PLATELET VOLUME 8.1 fL (9.0-12.2); MONOCYTES # (AUTO) 0.5 10^3/uL (0.0-1.0); MONOCYTES % (AUTO) 11 % (0-12); NEUTROPHILS # (AUTO) 2.8 10^3/uL (1.8-7.8); NEUTROPHILS % (AUTO) 64 % (42-75); PLATELET COUNT 132 10^3/uL (130-400); WHITE BLOOD COUNT 4.4 10^3/uL (4.3-11.0)
[2020-10-18 13:44] LABS: ALBUMIN 3.8 GM/DL (3.2-4.5); BILIRUBIN,TOTAL 0.4 MG/DL (0.1-1.0); CALCIUM 8.7 MG/DL (8.5-10.1); CREATININE SERUM 0.95 MG/DL (0.60-1.30); TOTAL PROTEIN 6.6 GM/DL (6.4-8.2)
[2020-11-08 12:57] LABS: BASOPHILS % (AUTO) 1 % (0-10); EOSINOPHILS # (AUTO) 0.3 10^3/uL (0.0-0.3); EOSINOPHILS % (AUTO) 7 % (0-10); HEMATOCRIT 35 % (40-54); HEMOGLOBIN 11.5 g/dL (13.3-17.7); LYMPHOCYTES # (AUTO) 0.3 10^3/uL (1.0-4.0); LYMPHOCYTES % (AUTO) 9 % (12-44); MEAN CORPUSCULAR HEMOGLOBIN 29 pg (25-34); MEAN CORPUSCULAR HGB CONC 33 g/dL (32-36); MEAN CORPUSCULAR VOLUME 89 fL (80-99); MEAN PLATELET VOLUME 7.8 fL (9.0-12.2); MONOCYTES # (AUTO) 0.4 10^3/uL (0.0-1.0); MONOCYTES % (AUTO) 11 % (0-12); NEUTROPHILS # (AUTO) 2.7 10^3/uL (1.8-7.8); NEUTROPHILS % (AUTO) 72 % (42-75); PLATELET COUNT 134 10^3/uL (130-400); WHITE BLOOD COUNT 3.7 10^3/uL (4.3-11.0)
[2020-11-08 13:17] LABS: ALBUMIN 3.7 GM/DL (3.2-4.5); BILIRUBIN,TOTAL 0.6 MG/DL (0.1-1.0); CALCIUM 9.2 MG/DL (8.5-10.1); CREATININE SERUM 1.06 MG/DL (0.60-1.30); POTASSIUM 3.6 MMOL/L (3.6-5.0); TOTAL PROTEIN 6.9 GM/DL (6.4-8.2)
[~2020-11-14 09:10] MED LIST changes: -LACTATED RINGERS 1,000 ML IV PRN; -SULF1TAB35 PO; +SULF1TAB38 PO
[2020-11-20] MEDS ORDERED: ONDA8TAB15 PO (10:35)
[2020-11-20] MEDS ORDERED: OMEP20TA33 PO (10:37)
[2020-11-22] MEDS ORDERED: CEPH500T PO (12:13)
== END 2020-12-13 | disposition home or self-care (01) ==
LOC: ONC 09:10
PROVIDERS: ATTEND Internal Medicine Hematology & Oncology
DX: Z51.0 Encounter for antineoplastic radiation therapy (principal); C20 Malignant neoplasm of rectum; E66.01 Morbid (severe) obesity due to excess calories; F43.10 Post-traumatic stress disorder, unspecified; F31.9 Bipolar disorder, unspecified; N20.0 Calculus of kidney; D64.9 Anemia, unspecified; Z90.5 Acquired absence of kidney; I10 Essential (primary) hypertension; E11.9 Type 2 diabetes mellitus without complications; Z79.899 Other long term (current) drug therapy; Z80.42 Family history of malignant neoplasm of prostate
CPT/HCPCS: 77290; 77300; 77301; 77307; 77334; 77336; 77338; 77385; 77386; 77417; 77470; 80053; 85025; 99204; 99213; 99214

== ENCOUNTER 2020-11-18 21:14 | Inpatient (IN) | payer MEDICARE, MEDICAID ==
[~2020-11-18] VITALS: Ht 170.2 cm; Wt 143.2 kg
[2020-11-18] MEDS ORDERED: NS IV ONE (23:15)
[2020-11-18] MEDS ORDERED: ACETAMINOPHEN 500 MG TAB (TYLENOL) PO PRN (23:15)
[2020-11-18] MEDS ORDERED: NS IV 1000 ML 1,000 ML IV SCH (23:15)
[2020-11-18 23:20] LABS: BASOPHILS % (AUTO) 0 % (0-10); EOSINOPHILS # (AUTO) 0.2 10^3/uL (0.0-0.3); EOSINOPHILS % (AUTO) 2 % (0-10); HEMATOCRIT 38 % (40-54); HEMOGLOBIN 12.1 g/dL (13.3-17.7); LYMPHOCYTES # (AUTO) 0.4 10^3/uL (1.0-4.0); LYMPHOCYTES % (AUTO) 5 % (12-44); MEAN CORPUSCULAR HEMOGLOBIN 30 pg (25-34); MEAN CORPUSCULAR HGB CONC 32 g/dL (32-36); MEAN CORPUSCULAR VOLUME 92 fL (80-99); MONOCYTES # (AUTO) 1.1 10^3/uL (0.0-1.0); MONOCYTES % (AUTO) 15 % (0-12); NEUTROPHILS # (AUTO) 5.6 10^3/uL (1.8-7.8); NEUTROPHILS % (AUTO) 77 % (42-75); PLATELET COUNT 135 10^3/uL (130-400); WHITE BLOOD COUNT 7.3 10^3/uL (4.3-11.0)
[2020-11-18 23:29] LABS: FIBRIN DEGRADATION PRODUCTS 0.4 UG/ML (0.00-0.49); INR 1.2 (0.8-1.4); PROTHROMBIN TIME PATIENT 15.4 SEC (12.2-14.7)
[2020-11-18 23:30] LABS: ALBUMIN 3.8 GM/DL (3.2-4.5); POTASSIUM 3.7 MMOL/L (3.6-5.0)
[2020-11-18 23:33] LABS: TOTAL PROTEIN 7.2 GM/DL (6.4-8.2)
[2020-11-18 23:33] LABS: BILIRUBIN,URINE NEGATIVE (NEGATIVE); CLARITY,URINE SL CLOUDY; COLOR,URINE YELLOW; GLUCOSE, URINE (UA) NEGATIVE (NEGATIVE); KETONES,URINE NEGATIVE (NEGATIVE); LEUKOCYTE ESTERASE ,URINE 3+ (NEGATIVE); NITRITE,URINE NEGATIVE (NEGATIVE); PH,URINE 7.5 (5-9); PROTEIN,URINE TRACE (NEGATIVE)
[2020-11-18 23:34] LABS: BILIRUBIN,TOTAL 0.8 MG/DL (0.1-1.0)
[2020-11-18 23:36] LABS: CREATININE SERUM 1.79 MG/DL (0.60-1.30)
[2020-11-18 23:42] LABS: BACTERIA,URINE MODERATE /HPF; WBC,URINE TNTC /HPF
[2020-11-18 23:53] LABS: ERYTHROCYTE SEDIMENTATION RATE 34 MM/HR (0-15)
[2020-11-19] MEDS ORDERED: CEFEPIME INJECTION 2,000 MG in WATER (STERILE) FOR INJECTION 20 ML IV ONE ×2
[2020-11-19] MEDS ORDERED: NS IV 1000 ML 1,000 ML IV SCH (00:45)
--- NOTE | 2020-11-19 00:51 | Diagnostic Imaging Report ---
EXAMINATION: Chest 1 view HISTORY: Fever. Abdominal pain. COMPARISON: 09/28/2020. FINDINGS: A right port is visualized the tip overlying the cavoatrial juncture. The lung volumes are normal. No focal consolidation is seen. No large pleural effusion or pneumothorax is seen. The cardiomediastinal silhouette is normal in size and contour. No acute osseous abnormality is seen. IMPRESSION: 1. No acute pleuroparenchymal process. Dictated by: Dictated on workstation # [id number]
--- NOTE | 2020-11-19 00:54 | Diagnostic Imaging Report ---
PROCEDURE: CT urinary tract, rule out kidney stone. TECHNIQUE: Multiple contiguous axial images were obtained through the abdomen and pelvis without the use of intravenous contrast. Auto Exposure Controls were utilized during the CT exam to meet ALARA standards for radiation dose reduction. INDICATION: Abdominal pain. COMPARISON: 09/13/2020. FINDINGS: The heart is unremarkable. The lung bases are clear. A calculus is seen in the proximal right ureter measuring 0.3 cm. There is mild right-sided hydroureteronephrosis. A prominent calculus is seen in the right renal pelvis measuring 1.8 cm. Additional smaller calculi are seen bilaterally. No hydronephrosis is seen in the left kidney. There is mild wall thickening of the proximal right ureter. The urinary bladder is nondistended. The liver, spleen, pancreas, and adrenal glands have a normal appearance. There is no pathologically enlarged mesenteric or retroperitoneal adenopathy. The bowel loops are nondilated. The appendix is visualized in the right lower quadrant and has a normal appearance. There is no free fluid or free air. No acute osseous abnormalities. There is no free air, loculated collection, or adenopathy in the pelvis. IMPRESSION: 1. Obstructing urolithiasis in the proximal right ureter with mild right-sided hydroureteronephrosis. Additional nonobstructing calculi are seen bilaterally, with the largest in the right renal pelvis measuring 1.8 cm. Dictated by: Dictated on workstation # [id number]
--- NOTE | 2020-11-19 00:56 | Diagnostic Imaging Report ---
REASON FOR EXAM: Abdominal pain. COMPARISON: 06/06/2020. TECHNIQUE: 3 views of the abdomen FINDINGS: The bowel gas pattern is nondistended. No large collection of free intraperitoneal air is seen. Scattered small amounts of gas and fecal material are present in the colon. Focal calcifications are seen overlying the bilateral kidneys. The largest is seen on the right measuring 1.8 cm. IMPRESSION: Bilateral renal calculi, right greater than left. Dictated by: Dictated on workstation # [id number]
[2020-11-19] MEDS ORDERED: ACETAMINOPHEN 500 MG TAB (TYLENOL) PO PRN (02:45)
[2020-11-19] MEDS ORDERED: ONDANSETRON 4 MG/2 ML (SDV) Z0FRAN IV PRN (03:00)
[2020-11-19] MEDS ORDERED: IBUPROFEN 800 MG (MOTRIN) TAB PO PRN (03:00)
[2020-11-19] MEDS: 1/2 NS W/KCL 20 MEQ/L 1,000 ML IV SCH ×3 (03:12→17:02)
[2020-11-19 04:06] VITALS: BP 149/88
[2020-11-19 05:28] LABS: BASOPHILS % (AUTO) 0 % (0-10); EOSINOPHILS # (AUTO) 0.1 10^3/uL (0.0-0.3); EOSINOPHILS % (AUTO) 1 % (0-10); MEAN CORPUSCULAR HEMOGLOBIN 30 pg (25-34); MEAN CORPUSCULAR VOLUME 95 fL (80-99); MEAN PLATELET VOLUME 9.2 fL (9.0-12.2)
[2020-11-19 05:30] LABS: HEMATOCRIT 38 % (40-54); HEMOGLOBIN 12.1 g/dL (13.3-17.7); LYMPHOCYTES # (AUTO) 0.7 10^3/uL (1.0-4.0); LYMPHOCYTES % (AUTO) 9 % (12-44); MEAN CORPUSCULAR HGB CONC 32 g/dL (32-36); MONOCYTES # (AUTO) 1.1 10^3/uL (0.0-1.0); MONOCYTES % (AUTO) 15 % (0-12); NEUTROPHILS # (AUTO) 5.7 10^3/uL (1.8-7.8); NEUTROPHILS % (AUTO) 75 % (42-75); PLATELET COUNT 118 10^3/uL (130-400); WHITE BLOOD COUNT 7.6 10^3/uL (4.3-11.0)
[2020-11-19] MEDS: CEFEPIME 1,000 MG/SWFI 10 ML IV PUSH IV SCH ×6 (05:31→17:02)
[2020-11-19 05:37] LABS: POTASSIUM 3.6 MMOL/L (3.6-5.0)
[2020-11-19 05:38] LABS: CALCIUM 8.7 MG/DL (8.5-10.1)
[2020-11-19 05:42] LABS: CREATININE SERUM 1.79 MG/DL (0.60-1.30)
[2020-11-19 07:50] VITALS: BP 149/81
[2020-11-19] MEDS: PANTOPRAZOLE 40 MG (PROTONIX) TAB PO SCH (08:29)
[2020-11-19] MEDS: DULoxetine 30 MG (CYMBALTA) CAP PO SCH (08:30)
--- NOTE | 2020-11-19 10:05 | History & Physical-Hospitalist ---
History of Present Illness HPI/Chief Complaint Patient is a rather poor historian who apparently finished radiation therapy for stage III colon cancer 1 to 2 weeks ago as well as his first round of chemotherapy. He started to feel poorly sometime within the last week and apparently has had several days of burning with urination and increasing fatigue. This caused him to present to the emergency room for further evaluation. He had had some chills he was not sure if he was feverish with no reported Covid exposure. He tested negative via PCR for Covid in the emergency room but had findings compatible with urinary tract infection. Past medical history is also significant for kidney stones he has a right ureteral stent and a stone proximal to this for which she has been following with Dr. Leon guzmán who had advised that they would deal with this when he was farther out from chemotherapy. He denies any back/flank pain. Date Seen 11/19/20 Time Seen by a Provider: 07:30 Attending Physician Edwar Wade MD PCP Alfredo Álvarez Referring Physician Date of Admission Nov 19, 2020 at 01:20 Home Medications & Allergies Home Medications Reviewed patient Home Medication Reconciliation performed by pharmacy medication reconciliations proof technician helper and/or nursing. Patients Allergies have been reviewed. Allergies Allergies Coded Allergies Penicillins (Verified Allergy, Unknown, 09/26/20) Past Czxlvnt-Ntmodn-Vrtbdz Hx Patient Social History Tobacco Use?: No Smoking Status: Former Smoker Smokeless Tobacco Frequency: Never a User Use of E-Cig and/or Vaping dev: No Substance use?: No Alcohol Use?: No Pt feels they are or have been: No Immunizations Up To Date Date of Influenza Vaccine: Jan 03, 2020 First/Initial COVID19 Vaccinat: 07/12/20 Second COVID19 Vaccination Marshal: 08/09/20 Tetanus Booster (TDap): Unknown Hepatitis A: No Hepatitis B: No Date of Pneumonia Vaccine: Dec 29, 2016 Seasonal Allergies Seasonal Allergies: No Current Status Advance Directives: No Communicates: Verbally Primary Language: [place] Preferred Spoken Language: [place] Is interpretation needed?: No Sensory deficits: Vision impairment Implanted or Applied Medical D: Port-a-cath Past Medical History Surgeries: Eye Surgery, Renal Currently Using CPAP: No Currently Using BIPAP: No Hypertension Developmental Disorder Kidney Stones Polyps Cataract, Glaucoma What Type of Treatment Did You: Surgical Intervention ADD/ADHD, Anxiety, Bipolar, Personality Disorder, Depression Blood Disorders: No Family Medical History No Pertinent Family Hx Review of Systems Constitutional: see HPI Physical Exam Physical Exam Vital Signs Vital Signs - First Documented 11/18/20 21:50 Temp 39.6 Pulse 101 Resp 18 B/P (MAP) 124/85 (98) Pulse Ox 97 O2 Delivery Room Air Capillary Refill : Height, Weight, BMI Height: 5'6.00" Weight: 330lbs. 0.0oz. 149.857497iz; 49.43 BMI Method:Stated General Appearance: No Apparent Distress, Obese Respiratory: Chest Non Tender, Lungs Clear, Normal Breath Sounds, No Accessory Muscle Use, No Respiratory Distress Cardiovascular: Regular Rate, Rhythm, No Edema, No Gallop, No JVD, No Murmur, Normal Peripheral Pulses Gastrointestinal: Normal Bowel Sounds, No Organomegaly, No Pulsatile Mass, Non Tender, Soft Extremity: Normal Capillary Refill, Normal Inspection, Normal Range of Motion, Non Tender, No Calf Tenderness, No Pedal Edema Results Results/Procedures Labs Laboratory Tests 11/18/20 22:30 11/19/20 04:38 Patient resulted labs reviewed. Assessment/Plan Admission Diagnosis 1. Urinary tract infection we will have to presume that this involves his left ureteral stent and possibly proximal ureteral stone there does not appear to be evidence for obstruction on history and physical examination or by CT as I recall. We will consult urology and continue Rocephin urine C&S pending. 2. Colon cancer presumably adenocarcinoma reported as stage III. Admission Status: Inpatient Order (span 2 midnights) Reason for Inpatient Admission: See admission diagnosis EDWAR WADE MD Nov 19, 2020 10:05
[2020-11-19 11:30] VITALS: BP 155/79
[2020-11-19 15:30] VITALS: BP 149/84
[2020-11-19] MEDS ORDERED: PATIENT MAY USE OWN MEDS, ALL MC SCH (17:30)
[2020-11-19] MEDS: OXcarbazepine (TRILEPTAL) 300 MG TAB PO SCH (19:51)
[2020-11-19 19:52] VITALS: BP 129/72
[2020-11-19] MEDS ORDERED: BRIMONIDINE 0.2% (ALPHAGAN) OPHTH SOLN 5 ML BTL OS SCH (21:00)
[2020-11-19] MEDS ORDERED: TIMOLOL MALEATE 0.5% 5 ML (TIMOPTIC) BTL OS SCH (21:00)
[2020-11-19] MEDS ORDERED: [UNRECOGNIZED DRUG - REMARK] OS SCH (21:00)
[2020-11-19 23:46] VITALS: BP 117/73
[2020-11-20] MEDS: 1/2 NS W/KCL 20 MEQ/L 1,000 ML IV SCH ×4 (01:11→18:18)
[2020-11-20] MEDS: CEFEPIME 1,000 MG/SWFI 10 ML IV PUSH IV SCH ×10 (01:15→23:32)
[2020-11-20 04:16] VITALS: BP 135/88
[2020-11-20 08:00] VITALS: BP 144/81
[2020-11-20] MEDS: lisINopril 20 MG (PRINIVIL) TABLET PO SCH (08:55)
[2020-11-20] MEDS: PANTOPRAZOLE 40 MG (PROTONIX) TAB PO SCH (08:55)
[2020-11-20] MEDS: DULoxetine 30 MG (CYMBALTA) CAP PO SCH (08:55)
[2020-11-20] MEDS: BRIMONIDINE 0.2% (ALPHAGAN) OPHTH SOLN 5 ML BTL OS SCH ×2 (08:56→21:00)
[2020-11-20] MEDS: TIMOLOL MALEATE 0.5% 5 ML (TIMOPTIC) BTL OS SCH ×2 (08:57→20:59)
[2020-11-20] MEDS: LINEZOLID IVPB 300 ML IV SCH ×2 (10:26→20:56)
[2020-11-20] MEDS ORDERED: ONDA8TAB15 PO (10:35)
[2020-11-20] MEDS ORDERED: OMEP20TA33 PO (10:37)
--- NOTE | 2020-11-20 11:55 | Progress Note - Hospitalist ---
JOYCE DENNIS MED STUDENT 11/20/20 1155: Subjective HPI/CC On Admission Date Seen by Provider: Nov 20, 2020 Time Seen by Provider: 08:10 Patient is a rather poor historian who apparently finished radiation therapy for stage III colon cancer 1 to 2 weeks ago as well as his first round of chemotherapy. He started to feel poorly sometime within the last week and apparently has had several days of burning with urination and increasing fatigue. This caused him to present to the emergency room for further evaluation. He had had some chills he was not sure if he was feverish with no reported Covid exposure. He tested negative via PCR for Covid in the emergency room but had findings compatible with urinary tract infection. Past medical history is also significant for kidney stones he has a right ureteral stent and a stone proximal to this for which she has been following with Dr. Leon guzmán who had advised that they would deal with this when he was farther out from chemotherapy. He denies any back/flank pain. Subjective/Events-last exam Patient is alert and answering questions slowly. He denies fevers, chills, chest pain, SOB, diarrhea, and blurry vision. Reports eating and drinking ok. Denies pain. Denies nausea. Has no questions at this point in time. Review of Systems General: No Chills, No Night Sweats, No Appetite HEENT: No Head Aches, No Visual Changes Pulmonary: No Dyspnea, No Cough Cardiovascular: No: Chest Pain, Palpitations, Edema Gastrointestinal: No: Nausea, Vomiting, Abdominal Pain, Diarrhea, Constipation Genitourinary: No Dysuria, No Frequency Musculoskeletal: No: neck pain, back pain Neurological: No: Weakness, Numbness Focused Exam Lactate Level 11/18/20 22:30: Lactic Acid Level 1.12 Objective Exam Vital Signs Vital Signs Date Time Temp Pulse Resp B/P (MAP) Pulse Ox O2 Delivery O2 Flow Rate FiO2 11/20/20 08:00 37.2 101 16 144/81 (102) 97 Room Air Capillary Refill : General Appearance: No Apparent Distress, Obese HEENT: PERRL/EOMI, Moist Mucous Membranes Neck: Full Range of Motion, Normal Inspection, Non Tender Respiratory: Chest Non Tender, Normal Breath Sounds, No Accessory Muscle Use, No Respiratory Distress Cardiovascular: Regular Rate, Rhythm, Normal Peripheral Pulses Gastrointestinal: Normal Bowel Sounds, Non Tender, Soft; No Distended, No Guarding, No Tenderness Rectal: Deferred Back: Normal Inspection, No CVA Tenderness, No Vertebral Tenderness Extremity: Normal Capillary Refill, Non Tender, No Calf Tenderness, Pedal Edema (nonpitting bilaterally) Neurologic/Psychiatric: Alert, Oriented x3, Normal Mood/Affect Skin: Normal Color, Warm/Dry Lymphatic: No Adenopathy Results/Procedures Lab Patient resulted labs reviewed. Assessment/Plan Assessment and Plan Assess & Plan/Chief Complaint UTI -Add zyvox -urine clean catch showed staph aureus Obstructing ureterolithiasis right side -urology consulted Mild hydroureteronephrosis right side Several non-obstructing renal calculi bilaterally [place] -continue IVF's -continue to monitor Anemia -mild, continue to monitor Recent rectal adenocarcinoma diagnosis -s/p first round of chemo and radiation per patient -have appt. at for resection surgery discussion H/o recurrent nephrolithiasis with stent placement HTN -monitor -continue home antihypertensives BIpolar disorder -monitor -continue home mood stabilizers GI ppx -protonix TIERRA MCKAY DO 11/21/20 0453: Subjective Subjective/Events-last exam Pt doing a lot better Will have a stent by Dr. Machado tomorrow B/L kidney stones S/p radiation and chemotherapy for colon cancer Restarted all home meds Abdominal X-ray showed B/L kidney stones with hydronephrosis Review of Systems General: Fatigue Objective Exam General Appearance: No Apparent Distress, Chronically ill, Obese Respiratory: Normal Breath Sounds, Decreased Breath Sounds Cardiovascular: Regular Rate, Rhythm Neurologic/Psychiatric: Alert, Oriented x3 Assessment/Plan Assessment and Plan Assess & Plan/Chief Complaint Added Zyvox Monitor creatinine Stent placement tomorrow per urology Supervisory-Addendum Brief Verification & Attestation Participated in pt care: history, MDM, physical Personally performed: exam, history, MDM, supervision of care Care discussed with: Medical Student Procedures: n/a Results interpretation: Verified all documentation Verification and Attestation of Medical Student E/M Service A medical student performed and documented this service in my presence. I reviewed and verified all information documented by the medical student and made modifications to such information, when appropriate. I personally performed the physical exam and medical decision making. Tierra Mckay, Nov 21, 2020,04:51 JOYCE DENNIS MED STUDENT Nov 20, 2020 11:55 TIERRA MCKAY DO Nov 21, 2020 04:53
[2020-11-20 12:00] VITALS: BP 104/62
--- NOTE | 2020-11-20 12:48 | CONSULTATION REPORT ---
DATE OF SERVICE: 11/20/2020 ATTENDING PHYSICIANS: Dr. Wright and Dr. Sher. SUMMARY: A 50-year-old white man known to me because of urolithiasis, mostly in the right side, has history of cancer colon, treated with radiation and chemotherapy for possible surgery at , was admitted through the emergency room with right flank pain and possible urosepsis, was definite UTI and fever at home. He was found to have a 3 mm stone in the proximal right ureter causing mild hydro and the known stones in the kidney, renal pelvis. His pain is better. His vital signs are good. No fever yesterday or today. I reviewed his history and physical by Dr. Sher. The patient looks good. Does not look septic clinically. PHYSICAL EXAMINATION: The patient is obese and some mild tenderness in the right flank. IMPRESSION: 1. Right proximal ureteral stone with mild obstruction, UTI and pain. 2. Renal stones. 3. Cancer colon stage III. 4. Medical problem per history. I reviewed his history and physical and his chart in the office. PLAN: I discussed the plan with him and his relative extensively. We will give him another day of antibiotics IV to control infection. Take him to surgery tomorrow depending on how things look and where the stone is, we will decide either to manipulate the stone and put a stent or scope or ESWL since the machine is here tomorrow. This was fully explained to the patient with expectation risk and complication, they fully understand and want the procedure done. Job ID: [id number] DocumentID: [id number] Dictated Date: 11/20/2020 09:12:51 Hvac Engineering Technician Date: 11/20/2020 12:47:33 Dictated By: CHUY WORKMAN MD
[2020-11-20] MEDS ORDERED: ONDANSETRON 4 MG (ZOFRAN) ORAL DISSOLVE TAB PO PRN (13:00)
[2020-11-20 16:00] VITALS: BP 133/81
[2020-11-20 20:00] VITALS: BP 93/53
[2020-11-20] MEDS: OXcarbazepine (TRILEPTAL) 300 MG TAB PO SCH (20:57)
[2020-11-20] MEDS: PANTOPRAZOLE 20 MG TABLET (PROTONIX) PO SCH (20:57)
[2020-11-20] MEDS: [UNRECOGNIZED DRUG - REMARK] OS SCH (21:00)
[2020-11-20 23:30] VITALS: BP 146/78
[2020-11-21] VITALS (10 sets, daily range): BP systolic 105–127; BP diastolic 59–78
[2020-11-21] MEDS: 1/2 NS W/KCL 20 MEQ/L 1,000 ML IV SCH ×4 (04:12→22:22)
[2020-11-21] MEDS: CEFEPIME 1,000 MG/SWFI 10 ML IV PUSH IV SCH ×6 (05:13→17:04)
[2020-11-21 05:26] LABS: BASOPHILS % (AUTO) 0 % (0-10); EOSINOPHILS # (AUTO) 0.3 10^3/uL (0.0-0.3); EOSINOPHILS % (AUTO) 6 % (0-10); HEMATOCRIT 31 % (40-54); HEMOGLOBIN 9.8 g/dL (13.3-17.7); LYMPHOCYTES # (AUTO) 0.3 10^3/uL (1.0-4.0); LYMPHOCYTES % (AUTO) 6 % (12-44); MEAN CORPUSCULAR HEMOGLOBIN 30 pg (25-34); MEAN CORPUSCULAR HGB CONC 32 g/dL (32-36); MEAN CORPUSCULAR VOLUME 93 fL (80-99); MEAN PLATELET VOLUME 8.4 fL (9.0-12.2); MONOCYTES # (AUTO) 0.9 10^3/uL (0.0-1.0); MONOCYTES % (AUTO) 16 % (0-12); NEUTROPHILS # (AUTO) 4.3 10^3/uL (1.8-7.8); NEUTROPHILS % (AUTO) 72 % (42-75); PLATELET COUNT 113 10^3/uL (130-400); WHITE BLOOD COUNT 5.9 10^3/uL (4.3-11.0)
[2020-11-21 05:44] LABS: ALBUMIN 3.1 GM/DL (3.2-4.5)
[2020-11-21 05:45] LABS: POTASSIUM 4.3 MMOL/L (3.6-5.0)
[2020-11-21 05:46] LABS: CALCIUM 8.7 MG/DL (8.5-10.1)
[2020-11-21 05:47] LABS: TOTAL PROTEIN 5.9 GM/DL (6.4-8.2)
[2020-11-21 05:49] LABS: BILIRUBIN,TOTAL 0.5 MG/DL (0.1-1.0)
[2020-11-21 05:51] LABS: CREATININE SERUM 1.56 MG/DL (0.60-1.30)
--- NOTE | 2020-11-21 07:04 | Progress Note-Pre Operative ---
Pre-Operative Progress Note H&P Reviewed The H&P was reviewed, patient examined and no changes noted. Date Seen by Provider: Nov 21, 2020 Time Seen by Provider: 07:03 Date H&P Reviewed: Nov 21, 2020 Time H&P Reviewed: 07:04 Pre-Operative Diagnosis: RT PROXIMAL URETERAL STONE CHUY WORKMAN MD Nov 21, 2020 07:04
--- NOTE | 2020-11-21 07:10 | Progress Note-Post Operative ---
Post-Operative Progess Note Surgeon (s)/Psych Coordinator (s) Surgeon CHUY WORKMAN MD Psych Coordinator: NONE Pre-Operative Diagnosis RT PROXIMAL URETERAL STONE Post-Operative Diagnosis SAME Procedure & Operative Findings Date of Procedure 11/21/20 Procedure Performed/Findings RT ESWL Anesthesia Type GENERAL Estimated Blood Loss Estimated blood loss (mL): NONE Specimens/Packing Specimens Removed NONE Packing: NONE CHUY WORKMAN MD Nov 21, 2020 07:10
[2020-11-21] MEDS ORDERED: proPOfol 200 MG/20 ML (DIPRIVAN) VIAL IV ONE (08:29)
[2020-11-21] MEDS ORDERED: LIDOCAINE PF 2% 5 ML (XYLOCAINE) VIAL ONE (08:29)
[2020-11-21] MEDS ORDERED: SEVOFLURANE (ULTANE) 15 ML INHAL SOLN ONE (08:29)
[2020-11-21] MEDS ORDERED: ONDANSETRON 4 MG/2 ML (SDV) Z0FRAN ONE (08:29)
[2020-11-21] MEDS ORDERED: MIDAZOLAM 2 MG/2 ML (VERSED) VIAL ONE (08:29)
[2020-11-21] MEDS ORDERED: fentaNYL INJ 100 MCG/2 ML AMP ONE (08:29)
[2020-11-21] MEDS ORDERED: LACTATED RINGERS 1,000 ML IV PRN ×2 (08:30→08:45)
[2020-11-21] MEDS ORDERED: NON-FORMULARY MEDICATION 1 EA EA (Duloxetine HCl 60 MG) PO SCH (09:00)
[2020-11-21] MEDS ORDERED: GLYCOPYRROLATE 0.2 MG/ML (ROBINUL) 2 ML VIAL ONE (09:08)
[2020-11-21] MEDS ORDERED: NEOSTIGMINE 3 MG/3 ML VIAL ONE (09:08)
[2020-11-21] MEDS ORDERED: PHENYLEPHRINE 100 MCG/ML 10 ML (ANESTHESIA) SYR ONE (09:12)
[2020-11-21] MEDS ORDERED: ROCURONIUM 10 MG/ML 5 ML SYRINGE IV ONE (09:13)
[2020-11-21] MEDS ORDERED: SUCCINYLCHOLINE INJ 100 MG/5 ML SYR/VIAL ONE (09:14)
--- NOTE | 2020-11-21 09:18 | Diagnostic Imaging Report ---
INDICATION: Kidney stone COMPARISON: 11/19/2020 FINDINGS: 2 views abdomen demonstrate stable stone in the inferior pole of the right kidney measuring approximately 2 cm. Several smaller stones are seen in the inferior pole. Questionable calculus measuring 4 mm is seen in the proximal right ureter. IMPRESSION: Right renal and ureteral calculi. Dictated by: Dictated on workstation # [id number]
[2020-11-21] MEDS ORDERED: FUROSEMIDE 40 MG/4 ML INJ (LASIX) ONE (09:27)
[2020-11-21] MEDS ORDERED: KETOROLAC 30 MG/ML VIAL ONE (09:27)
[2020-11-21] MEDS ORDERED: HYDROmorphone 2 MG/ML VIAL (DILAUDID) IV ONE (09:45)
[2020-11-21] MEDS ORDERED: ONDANSETRON 4 MG/2 ML (SDV) Z0FRAN IVP PRN (09:45)
[2020-11-21] MEDS: lisINopril 20 MG (PRINIVIL) TABLET PO SCH (11:06)
[2020-11-21] MEDS: LINEZOLID IVPB 300 ML IV SCH ×2 (11:06→20:59)
[2020-11-21] MEDS: BRIMONIDINE 0.2% (ALPHAGAN) OPHTH SOLN 5 ML BTL OS SCH ×2 (11:08→20:58)
[2020-11-21] MEDS: TIMOLOL MALEATE 0.5% 5 ML (TIMOPTIC) BTL OS SCH ×2 (11:08→20:58)
[2020-11-21] MEDS: DULoxetine 30 MG (CYMBALTA) CAP PO SCH ×2 (11:11)
--- NOTE | 2020-11-21 11:39 | Progress Note - Hospitalist ---
JOYCE DENNIS MED STUDENT 11/21/20 1139: Subjective HPI/CC On Admission Date Seen by Provider: Nov 21, 2020 Time Seen by Provider: 11:33 Patient is a rather poor historian who apparently finished radiation therapy for stage III colon cancer 1 to 2 weeks ago as well as his first round of chemotherapy. He started to feel poorly sometime within the last week and apparently has had several days of burning with urination and increasing fatigue. This caused him to present to the emergency room for further evaluation. He had had some chills he was not sure if he was feverish with no reported Covid exposure. He tested negative via PCR for Covid in the emergency room but had findings compatible with urinary tract infection. Past medical history is also significant for kidney stones he has a right ureteral stent and a stone proximal to this for which she has been following with Dr. Leon guzmán who had advised that they would deal with this when he was farther out from chemotherapy. He denies any back/flank pain. Subjective/Events-last exam Reports feeling well. Denies fevers, chills, nausea, vomiting, and back pain. Tolerating clear liquids well. Going to order lunch soon. Is voiding without difficulty, denies blood in urine. No further questions/concerns at this time. Review of Systems General: No Chills, No Night Sweats, No Fatigue, No Malaise HEENT: No Head Aches, No Visual Changes Pulmonary: No Dyspnea, No Cough Cardiovascular: No: Chest Pain, Palpitations Gastrointestinal: No: Nausea, Vomiting, Abdominal Pain Genitourinary: No Dysuria, No Frequency Musculoskeletal: No: neck pain, back pain Neurological: No: Weakness, Numbness Focused Exam Lactate Level 11/18/20 22:30: Lactic Acid Level 1.12 Objective Exam Vital Signs Vital Signs Date Time Temp Pulse Resp B/P (MAP) Pulse Ox O2 Delivery O2 Flow Rate FiO2 11/21/20 10:15 Room Air 11/21/20 10:15 36.2 20 119/65 (83) 96 11/21/20 10:15 90 11/21/20 10:10 5 Capillary Refill : Less Than 3 Seconds General Appearance: No Apparent Distress, Obese HEENT: PERRL/EOMI, Pharynx Normal Neck: Full Range of Motion, Normal Inspection, Non Tender, Supple Respiratory: Chest Non Tender, Lungs Clear, Normal Breath Sounds, No Accessory Muscle Use, No Respiratory Distress Cardiovascular: Regular Rate, Rhythm, No Edema, No Murmur, Normal Peripheral Pulses Gastrointestinal: Normal Bowel Sounds, Non Tender, Soft; No Distended, No Guarding, No Tenderness Rectal: Deferred Back: Normal Inspection, No CVA Tenderness, No Vertebral Tenderness Extremity: Normal Capillary Refill, Normal Inspection, Normal Range of Motion, Non Tender, No Calf Tenderness, No Pedal Edema Neurologic/Psychiatric: Alert, Oriented x3, No Motor/Sensory Deficits, Normal Mood/Affect Skin: Normal Color, Warm/Dry Lymphatic: No Adenopathy Results/Procedures Lab Laboratory Tests 11/21/20 05:15 Patient resulted labs reviewed. Assessment/Plan Assessment and Plan Assess & Plan/Chief Complaint UTI -denies dysuria, frequency, urgency, incontinence, fevers, chills -zyvox -urine clean catch showed staph aureus Obstructing ureterolithiasis right side -urology took patient to OR for lithotripsy this am Mild hydroureteronephrosis right side Several non-obstructing renal calculi bilaterally [place] -improved today, creatinine 1.56 today -continue IVF's -continue to monitor Anemia -mild, continue to monitor Recent rectal adenocarcinoma diagnosis -s/p first round of chemo and radiation per patient -have appt. at for resection surgery discussion H/o recurrent nephrolithiasis with stent placement HTN -monitor -continue home antihypertensives BIpolar disorder -monitor -continue home mood stabilizers GI ppx -protonix Plan is to get patient set up with urology at as will need right sided nephr ostomy for large renal calculus. Patient doing well post lithotripsy this am TIERRA MCKAY DO 11/22/20 0603: Subjective Subjective/Events-last exam Pt had lithotripsy today by Dr. Machado and I did confer with Dr. Machado Hgb 9.8 Creatinine down to 1.56 down from 1.79 Half normal saline still infusing On Cefepime an Zyvox Objective Exam General Appearance: No Apparent Distress, WD/WN, Chronically ill, Obese Respiratory: Lungs Clear Cardiovascular: Regular Rate, Rhythm Neurologic/Psychiatric: Alert, Oriented x3 Assessment/Plan Assessment and Plan Assess & Plan/Chief Complaint Antibiotics Supportive care Pain control Supervisory-Addendum Brief Verification & Attestation Participated in pt care: history, MDM, physical Personally performed: exam, history, MDM, supervision of care Care discussed with: Medical Student Procedures: n/a Results interpretation: Verified all documentation Verification and Attestation of Medical Student E/M Service A medical student performed and documented this service in my presence. I reviewed and verified all information documented by the medical student and made modifications to such information, when appropriate. I personally performed the physical exam and medical decision making. Tierra Mckay, Nov 22, 2020,06:02 JOYCE DENNIS MED STUDENT Nov 21, 2020 11:39 TIERRA MCKAY DO Nov 22, 2020 06:03
--- NOTE | 2020-11-21 12:44 | OPERATIVE REPORT ---
DATE OF SERVICE: 11/21/2020 PREOPERATIVE DIAGNOSES: 1. Right proximal ureteral stone. 2. Right renal stones. POSTOPERATIVE DIAGNOSES: 1. Right proximal ureteral stone. 2. Right renal stones. OPERATION PERFORMED: Right ESWL for the right ureteral stone. SURGEON: Randolph Workman MD ANESTHESIA: General. COMPLICATIONS: None. DESCRIPTION OF THE PROCEDURE: The patient laid supine on the ESWL table, the right proximal ureteral stone was localized. Shocks were delivered at kV of 6, a total of 2000 shocks completely fragmented the stone that was not visualized anymore. The patient received 30 mg of Toradol and 40 mg of Lasix IV at the end of the procedure. He tolerated the procedure and anesthesia well and was sent to recovery room in stable condition. PLAN: We will keep him overnight to observe him and dismiss him tomorrow. Job ID: [id number] DocumentID: [id number] Dictated Date: 11/21/2020 09:18:16 Spray Machine Tender Date: 11/21/2020 12:43:30 Dictated By: RANDOLPH WORKMAN MD
--- NOTE | 2020-11-21 13:59 | Anesthesia-General Post-Op ---
General Patient Condition Mental Status/LOC: Same as Preop Cardiovascular: Satisfactory Nausea/Vomiting: Absent Respiratory: Satisfactory Pain: Controlled Complications: Absent Post Op Complications Complications None Follow Up Care/Instructions Patient Instructions None needed. Anesthesia/Patient Condition Patient Condition Patient is doing well, no complaints, stable vital signs, no apparent adverse anesthesia problems. No complications reported per nursing. [place] [facility]: Yes AIDA BAI CRNA Nov 21, 2020 13:59
[2020-11-21] MEDS: PANTOPRAZOLE 20 MG TABLET (PROTONIX) PO SCH (20:59)
[2020-11-21] MEDS: OXcarbazepine (TRILEPTAL) 300 MG TAB PO SCH (20:59)
[2020-11-21] MEDS: [UNRECOGNIZED DRUG - REMARK] OS SCH (20:59)
[2020-11-22 00:31] VITALS: BP 133/78
[2020-11-22] MEDS: CEFEPIME 1,000 MG/SWFI 10 ML IV PUSH IV SCH ×4 (00:53→06:14)
[2020-11-22] MEDS: 1/2 NS W/KCL 20 MEQ/L 1,000 ML IV SCH ×2 (00:53→09:01)
[2020-11-22 04:00] VITALS: BP 117/57
[2020-11-22 06:26] LABS: BASOPHILS % (AUTO) 0 % (0-10); EOSINOPHILS # (AUTO) 0.1 10^3/uL (0.0-0.3); EOSINOPHILS % (AUTO) 2 % (0-10); HEMATOCRIT 30 % (40-54); HEMOGLOBIN 9.9 g/dL (13.3-17.7); LYMPHOCYTES # (AUTO) 0.4 10^3/uL (1.0-4.0); LYMPHOCYTES % (AUTO) 6 % (12-44); MEAN CORPUSCULAR HEMOGLOBIN 30 pg (25-34); MEAN CORPUSCULAR HGB CONC 33 g/dL (32-36); MEAN CORPUSCULAR VOLUME 92 fL (80-99); MEAN PLATELET VOLUME 8.8 fL (9.0-12.2); MONOCYTES # (AUTO) 0.9 10^3/uL (0.0-1.0); MONOCYTES % (AUTO) 15 % (0-12); NEUTROPHILS # (AUTO) 4.8 10^3/uL (1.8-7.8); NEUTROPHILS % (AUTO) 77 % (42-75); PLATELET COUNT 152 10^3/uL (130-400); WHITE BLOOD COUNT 6.3 10^3/uL (4.3-11.0)
[2020-11-22 06:37] LABS: ALBUMIN 3.2 GM/DL (3.2-4.5); POTASSIUM 4.4 MMOL/L (3.6-5.0)
[2020-11-22 06:38] LABS: CALCIUM 8.8 MG/DL (8.5-10.1)
[2020-11-22 06:40] LABS: TOTAL PROTEIN 6.1 GM/DL (6.4-8.2)
[2020-11-22 06:41] LABS: BILIRUBIN,TOTAL 0.4 MG/DL (0.1-1.0)
[2020-11-22 06:43] LABS: CREATININE SERUM 1.62 MG/DL (0.60-1.30)
[2020-11-22 06:54] LABS: ANISOCYTOSIS MARKED; BAND NEUTROPHILS 0 %; BASOPHILS % (MANUAL) 0 %; EOSINOPHILS % (MANUAL) 1 %; LYMPHOCYTES % (MANUAL) 10 %; MONOCYTES % (MANUAL) 10 %; NEUTROPHILS % (MANUAL) 79 %; POLYCHROMASIA SLIGHT
[2020-11-22 08:00] VITALS: BP 130/70
[2020-11-22] MEDS: DULoxetine 30 MG (CYMBALTA) CAP PO SCH ×2 (09:01)
[2020-11-22] MEDS: lisINopril 20 MG (PRINIVIL) TABLET PO SCH (09:01)
[2020-11-22] MEDS: BRIMONIDINE 0.2% (ALPHAGAN) OPHTH SOLN 5 ML BTL OS SCH (09:02)
[2020-11-22] MEDS: TIMOLOL MALEATE 0.5% 5 ML (TIMOPTIC) BTL OS SCH (09:04)
[2020-11-22] MEDS ORDERED: cefTRIAXone 2,000 MG/SWFI 20 ML IV PUSH IV SCH ×2 (12:00)
[2020-11-22] MEDS ORDERED: CEPH500T PO (12:13)
--- NOTE | 2020-11-22 12:15 | Discharge Summary ---
Discharge Summary Hospital Course Was the Problem List Reviewed?: Yes Problems/Dx: (1) SEPSIS, UTI, COLON CANCER, URETERAL STONE Hospital Course Date of Admission: Nov 19, 2020 at 01:20 Admission Diagnosis : Family Physician/Provider: Alfredo Álvarez Date of Discharge: 11/22/20 Discharge Diagnosis: Sepsis, UTI, renal lithiasis causing hydronephrosis status post lithotripsy, colon cancer Hospital Course: Hospital course: Pt had a lengthy hospital course for four days, he was admitted for sepsis, history of colon cancer and obstructive kidney stone. Dr. Machado was able to perform lithotripsy, no stent was placed and he will follow-up at for his colon cancer treatment and remove the larger stone percutaneously. Overall he did very well, was up AD-LENNY and medication was sent to [facility]. Labs and Pending Lab Test: Laboratory Tests 11/22/20 06:10: White Blood Count 6.3, Red Blood Count 3.30L, Hemoglobin 9.9L, Hematocrit 30L, Mean Corpuscular Volume 92, Mean Corpuscular Hemoglobin 30, Mean Corpuscular Hemoglobin Concent 33, Red Cell Distribution Width 22.9H, Platelet Count 152, Mean Platelet Volume 8.8L, Immature Granulocyte % (Auto) 0, Neutrophils (%) (Auto) 77H, Lymphocytes (%) (Auto) 6L, Monocytes (%) (Auto) 15H, Eosinophils (%) (Auto) 2, Basophils (%) (Auto) 0, Neutrophils # (Auto) 4.8, Lymphocytes # (Auto) 0.4L, Monocytes # (Auto) 0.9, Eosinophils # (Auto) 0.1, Basophils # (Auto) 0.0, Immature Granulocyte # (Auto) 0.0, Neutrophils % (Manual) 79, Lymphocytes % (Manual) 10, Monocytes % (Manual) 10, Eosinophils % (Manual) 1, Basophils % (Manual) 0, Band Neutrophils 0, Polychromasia SLIGHT, Anisocytosis MARKED, Sod ium Level 134L, Potassium Level 4.4, Chloride Level 105, Carbon Dioxide Level 21, Anion Gap 8, Blood Urea Nitrogen 15, Creatinine 1.62H, Estimat Glomerular Filtration Rate 46, BUN/Creatinine Ratio 9, Glucose Level 90, Calcium Level 8.8, Corrected Calcium 9.4, Total Bilirubin 0.4, Aspartate Amino Transf (AST/SGOT) 11, Alanine Aminotransferase (ALT/SGPT) 12, Alkaline Phosphatase 47, Total Protein 6.1L, Albumin 3.2 Microbiology 11/18/20 Blood Culture - Preliminary, Resulted No growth 11/18/20 Urine Culture - Final, Complete Staphylococcus aureus Mixed Bacterial Yudelka Home Meds Active Cephalexin 500 Mg Tablet 500 Mg PO TID Reported Prilosec Otc (Omeprazole Magnesium) 20 Mg Tablet.dr 20 Mg PO HS Ondansetron HCl 8 Mg Tablet 8 Mg PO Q8H PRN Lisinopril 20 Mg Tablet 20 Mg PO DAILY Zioptan 0.0015% Eye Drops (Tafluprost/Pf) 1 Each Droperette 1 Each OS HS Timolol Maleate 0.5% (Timolol Maleate) 5 Ml Drops 1 Drop OS BID Trileptal (Oxcarbazepine) 600 Mg Tablet 900 Mg PO DAILY TAKES 1 & (600MG) TABS DAILY Trileptal (Oxcarbazepine) 600 Mg Tablet 600 Mg PO HS Brimonidine Tartrate 5 Ml Btl 1 Drop OS BID Cymbalta (Duloxetine HCl) 30 Mg Capsule.dr 30 Mg PO DAILY TAKES 60MG + 30MG TO EQUAL 90MG DAILY Duloxetine HCl 60 Mg Capsule.dr 60 Mg PO DAILY TAKES 60MG + 30MG TO EQUAL 90MG DAILY Fish Oil 1,000 mg Softgel (Canby-3/Dha/Epa/Fish Oil) 1,000 Mg Capsule 1,000 Mg PO BID Assessment/Pt Instructions [facility] for colon cancer treatment and kidney stone removal Discharge Planning: <30 minutes discharge planning Discharge Instructions Discharge Diet: No Restrictions Activity as Tolerated: Yes Discharge Physical Examination Vital Signs Vital Signs Date Time Temp Pulse Resp B/P (MAP) Pulse Ox O2 Delivery O2 Flow Rate FiO2 11/22/20 08:00 98 Room Air 11/22/20 08:00 36.5 100 20 130/70 (90) 11/21/20 10:10 5 General Appearance: No Apparent Distress, WD/WN, Chronically ill Neurologic/Psychiatric: Alert, Oriented x3 Allergies: Coded Allergies: Penicillins (Verified Allergy, Unknown, 09/26/20) Discharge Summary Date of Admission Nov 19, 2020 at 01:20 Date of Discharge Discharge Date: Nov 22, 2020 Admission Diagnosis 1. Urinary tract infection we will have to presume that this involves his left ureteral stent and possibly proximal ureteral stone there does not appear to be evidence for obstruction on history and physical examination or by CT as I recall. We will consult urology and continue Rocephin urine C&S pending. 2. Colon cancer presumably adenocarcinoma reported as stage III. Discharge Diagnosis Antibiotics Supportive care Pain control RADHA MCKAY DO Nov 22, 2020 12:15
--- NOTE | 2020-11-22 12:29 | Progress Note ---
JOYCE DENNIS MED STUDENT 11/22/20 1229: Progress Note Hospital Course: Jim Shannon is a 50 year old white male who presented to the ED on 11-19 with complaint of feeling poorly for the last week with worsening burning with urination and increased fatigue for several days. In the ED he was febrile at 39.6 centigrade. He was admitted to the floor thru the ED with right flank pain and urosepsis. PMH is significant for stage 3 colon cancer with recent completion of chemotherapy, HTN, kidney stones with past stent placement, glaucoma, developmental disorder, and Bipolar disorder. Abdominal CT on 11-19 showed obstructing urolithiasis in the proximal right ureter with mild right sided hydroureteronephrosis. There were also additional nonobstructing stones seen bilaterally. Urology was consulted and the patient underwent ESWL on the right on 11-21. The patient tolerated the procedure well without any complications. Urine culture grew out MSSA. Patient was initially treated with intravenous fluids, antiemetics, cefepime and zyvox, was later switched to rocephin. Patient is not having any dysuria, frequency, or urgency today. Plan is to discharge to home with followup outpatient visits with his urologist. He will be going to soon to receive consultation for his colorectal cancer. TIERRA MCKAY DO 11/23/20 0459: Supervisory-Addendum Brief Verification & Attestation Participated in pt care: history, MDM, physical Personally performed: exam, history, MDM, supervision of care Care discussed with: Medical Student Procedures: n/a Results interpretation: Verified all documentation Verification and Attestation of Medical Student E/M Service A medical student performed and documented this service in my presence. I reviewed and verified all information documented by the medical student and made modifications to such information, when appropriate. I personally performed the physical exam and medical decision making. Tierra Mckay, Nov 23, 2020,04:59 JOYCE DENNIS MED STUDENT Nov 22, 2020 12:29 TIERRA MCKAY DO Nov 23, 2020 04:59
[2020-11-22 12:44] VITALS: BP 130/70
--- NOTE | 2020-11-23 11:59 | Physician Query Clarification ---
PQ-Link Infection to Dev/Proc Admission/Discharge Admission Date: Nov 19, 2020 at 01:20 Discharge Date: Nov 22, 2020 at 12:45 Dr. Workman, The medical record reflects the following clinical scenario: History/Risk Factors: kidney/ureteral calculus, UTI Clinical Findings: Obstructing urolithiasis in the proximal right ureter with mild right-sided hydroureteronephrosis. Additional nonobstructing calculi are seen bilaterally, with the largest in the right renal pelvis measuring 1.8 cm. Treatment: IV Cefepime, ESWL Question: Can you specify if the UTI is due to/associated with the rt ureteral stent? Please document a response in Progress Note or Discharge Summary. 1. Yes - UTI is due to/associated with the rt ureteral stent. 2. No - UTI is not due to/associated with the rt ureteral stent. UTI is d/t the rt ureteral calculus w/hydronephrosis 3. Other, with explanation of the clinical findings. 4. Clinically undetermined, no explanation for the clinical findings. PHYSICIAN RESPONSE Specify if infection: 2 Please remember a lack of response to the above will prompt a phone page by CDI/Coding staff. In responding to this query, please exercise your independent professional judgment. The purpose of this communication is to more accurately reflect the complexity of your patients condition. The fact that a question is asked does not imply that any particular answer is desired or expected. Thank you for your timely response to this clarification. Requestors name: Pascale THIS PHYSICIAN QUERY FORM IS A PERMANENT PART OF THE MEDICAL RECORD PASCALE RODRIGEZ Nov 23, 2020 11:59 CHUY WORKMAN MD Nov 24, 2020 09:40
--- NOTE | 2020-11-23 12:08 | Physician Query Clarification ---
PQ-Uncertain Diagnosis Admission/Discharge Admission Date: Nov 19, 2020 at 01:20 Discharge Date: Nov 22, 2020 at 12:45 Dr. Wright, The medical record reflects the following clinical scenario: History/Risk Factors: karla kidney/rt ureteral calculus w/hydronephrosis, UTI Clinical Findings: T 39.6, P 117, R 22 Treatment: IV Cefepime, ESWL Question: Is sepsis a clinically valid diagnosis? Sepsis was documented in the DS with no further documentation in the medical record. Please document a response in Progress Note or Discharge Summary. 1. Yes, clinically valid, condition resolved. 2. No, condition ruled out. 3. Yes, sepsis valid diagnosis and d/t rt ureteral stent 4. Other, with explanation of clinical findings. 5. Undetermined, no explanation for clinical findings. PHYSICIAN RESPONSE Diagnosis clinically valid: Yes, Conditon resolved Please remember a lack of response to the above will prompt a phone page by CDI/Coding staff. In responding to this query, please exercise your independent professional judgment. The purpose of this communication is to more accurately reflect the complexity of your patients condition. The fact that a question is asked does not imply that any particular answer is desired or expected. Thank you for your timely response to this clarification. Requestors name: [employer] THIS PHYSICIAN QUERY FORM IS A PERMANENT PART OF THE MEDICAL RECORD PASCALE RODRIGEZ Nov 23, 2020 12:08 RADHA WRIGHT DO Nov 23, 2020 13:05
== END 2020-11-22 12:45 | disposition home or self-care (01) | DRG 872 ==
LOC: EDUNIT# 21:14 → ER 21:16 → 4TH 11-19 01:20
PROVIDERS: ADMIT Internal Medicine; ATTEND Internal Medicine
PROC: 0TF6XZZ Fragmentation in Right Ureter, External Approach (ICD-10-PCS; principal; 2020-11-21 08:47)
DX: A41.01 Sepsis due to Methicillin susceptible Staphylococcus aureus (principal); N13.6 Pyonephrosis; C20 Malignant neoplasm of rectum; I10 Essential (primary) hypertension; H54.7 Unspecified visual loss; F41.9 Anxiety disorder, unspecified; F31.9 Bipolar disorder, unspecified; F60.9 Personality disorder, unspecified; Z20.822 Contact with and (suspected) exposure to COVID-19; Z87.891 Personal history of nicotine dependence; Z88.0 Allergy status to penicillin
CPT/HCPCS: 36415; 71045; 74018; 74176; 80048; 80053; 81000; 83605; 83615; 84145; 85007; 85025; 85027; 85379; 85610; 85652; 85730; 86141; 87040; 87077; 87088; 87186; 87636; 93041; 96361; 96374

== ENCOUNTER → 2021-02-05 | Outpatient (CLI) | payer MEDICARE, MEDICAID ==
[~2021-02-05] MED LIST changes: +CEPH500T PO; +OMEP20TA33 PO; +ONDA8TAB15 PO
== END ==
LOC: LABNPT 06:27
PROVIDERS: ATTEND Surgery
DX: Z01.812 Encounter for preprocedural laboratory examination (principal); Z20.822 Contact with and (suspected) exposure to COVID-19
CPT/HCPCS: 87635

== ENCOUNTER 2021-04-24 14:00 | Outpatient (RCR) | payer MEDICARE, MEDICAID ==
[~2021-04-24 14:00] MED LIST changes: +ONDA-106 PO; -ONDA8TAB15 PO
[2021-04-24 14:12] LABS: BASOPHILS % (AUTO) 0 % (0-10); EOSINOPHILS # (AUTO) 0.2 10^3/uL (0.0-0.3); EOSINOPHILS % (AUTO) 3 % (0-10); HEMATOCRIT 33 % (40-54); HEMOGLOBIN 9.7 g/dL (13.3-17.7); LYMPHOCYTES # (AUTO) 1.2 10^3/uL (1.0-4.0); LYMPHOCYTES % (AUTO) 13 % (12-44); MEAN CORPUSCULAR HEMOGLOBIN 25 pg (25-34); MEAN CORPUSCULAR HGB CONC 29 g/dL (32-36); MEAN CORPUSCULAR VOLUME 83 fL (80-99); MEAN PLATELET VOLUME 8.2 fL (9.0-12.2); MONOCYTES # (AUTO) 0.8 10^3/uL (0.0-1.0); MONOCYTES % (AUTO) 9 % (0-12); NEUTROPHILS # (AUTO) 6.9 10^3/uL (1.8-7.8); NEUTROPHILS % (AUTO) 75 % (42-75); PLATELET COUNT 335 10^3/uL (130-400); WHITE BLOOD COUNT 9.3 10^3/uL (4.3-11.0)
[2021-04-24 14:31] LABS: ALBUMIN 3.8 GM/DL (3.2-4.5); BILIRUBIN,TOTAL 0.3 MG/DL (0.1-1.0); CALCIUM 9.9 MG/DL (8.5-10.1); CREATININE SERUM 1.27 MG/DL (0.60-1.30); TOTAL PROTEIN 8.1 GM/DL (6.4-8.2)
== END 2021-04-30 | disposition home or self-care (01) ==
LOC: ONC 14:00
PROVIDERS: ATTEND Internal Medicine Hematology & Oncology
DX: C20 Malignant neoplasm of rectum (principal); D50.0 Iron deficiency anemia secondary to blood loss (chronic); N20.0 Calculus of kidney; E66.01 Morbid (severe) obesity due to excess calories; Z90.5 Acquired absence of kidney
CPT/HCPCS: 80053; 85025; G0463; 36415; 99213

== ENCOUNTER 2021-07-09 10:49 | Inpatient (IN) | payer MEDICARE, MEDICAID ==
[~2021-07-09] VITALS: Ht 170 cm; Wt 121.5 kg
[2021-07-09] MEDS ORDERED: diphenhydrAMINE 25 MG TAB (BENADRYL) PO PRN (11:15)
[2021-07-09] MEDS ORDERED: LACTULOSE SYRUP 10GM/15ML (ENULOSE) 30ML UDC PO PRN (11:15)
[2021-07-09] MEDS ORDERED: DOCUSATE SODIUM 100 MG (COLACE) CAP PO PRN (11:15)
[2021-07-09] MEDS ORDERED: ALPRAZolam 0.25 MG (XANAX) TAB PO PRN (11:15)
[2021-07-09] MEDS ORDERED: MELATONIN 3 MG TABLET PO PRN (11:15)
[2021-07-09] MEDS ORDERED: CALCIUM CARBONATE 500 MG (TUMS) TAB.CHEW PO PRN (11:15)
[2021-07-09] MEDS ORDERED: MICONAZOLE 2% POWDER (DESENEX AF) 90 GM TOP PRN (11:15)
[2021-07-09] MEDS ORDERED: LOPERAMIDE 2 MG (IMODIUM) TABLET PO PRN (11:15)
[2021-07-09] MEDS ORDERED: guaiFENesin/CODEINE (ROBITUSSIN AC) 10ML UDC PO PRN (11:15)
[2021-07-09] MEDS ORDERED: FLEET ENEMA ADULT 1 EA BTL PR PRN (11:15)
[2021-07-09] MEDS ORDERED: DICLOFENAC 1% GEL 100 GM (VOLTAREN) TUBE TOP PRN (11:15)
[2021-07-09] MEDS ORDERED: ONDANSETRON 4 MG (ZOFRAN) ORAL DISSOLVE TAB PO PRN (11:15)
[2021-07-09] MEDS ORDERED: BISACODYL 10 MG SUPP (DULCOLAX) PR PRN (11:15)
[2021-07-09] MEDS ORDERED: AMOX1TAB11 PO (12:44)
[2021-07-09] MEDS ORDERED: FLUC150T41 PO (12:47)
[2021-07-09] MEDS ORDERED: APIX5TAB PO (12:47)
[2021-07-09] MEDS ORDERED: HYOS-6 PO (12:50)
[2021-07-09] MEDS ORDERED: METH-732 PO (12:52)
[2021-07-09] MEDS ORDERED: TMSL.4C PO (12:54)
[2021-07-09] MEDS ORDERED: OXYB10TA29 PO (12:54)
[2021-07-09] MEDS ORDERED: TRAM50TA3 PO (12:55)
[2021-07-09] MEDS ORDERED: ACET325T38 PO (12:57)
[2021-07-09] MEDS ORDERED: ARGI500T PO (12:59)
[2021-07-09] MEDS ORDERED: BRIM5DRO2 OS (13:00)
[2021-07-09] MEDS ORDERED: CYAN500T8 PO (13:02)
[2021-07-09] MEDS ORDERED: DIPH1TAB PO (13:03)
[2021-07-09] MEDS ORDERED: DOCU100C37 PO (13:04)
[2021-07-09] MEDS ORDERED: DULO30CA49 PO (13:06)
[2021-07-09] MEDS ORDERED: DULO60CA59 PO (13:06)
[2021-07-09] MEDS ORDERED: FAMO20TA3 PO (13:09)
[2021-07-09] MEDS ORDERED: FERR325T18 PO (13:09)
[2021-07-09] MEDS ORDERED: GLUC1VIA15 IJ (13:10)
[2021-07-09] MEDS ORDERED: LATA7.5D OS (13:11)
[2021-07-09] MEDS ORDERED: OXCA300T18 PO (13:12)
[2021-07-09] MEDS ORDERED: POLY17PO54 PO (13:13)
[2021-07-09] MEDS ORDERED: POTA10TA37 PO (13:15)
[2021-07-09] MEDS ORDERED: TIMO5DRO5 OS (13:16)
[2021-07-09] MEDS ORDERED: NF-SODBICA PO (13:16)
[2021-07-09] MEDS ORDERED: TRZ50T PO (13:17)
[2021-07-09] MEDS ORDERED: VITA-272 PO (13:18)
[2021-07-09 13:40] VITALS: BP 131/85
[2021-07-09] MEDS ORDERED: LATA2.5D19 OS (13:41)
[2021-07-09] MEDS ORDERED: METHOCARBAMOL 750 MG (ROBAXIN) TAB PO PRN (14:00)
[2021-07-09] MEDS ORDERED: RX-DIPHENO./ATROP. 2.5/0.25 MG (LOMOTIL) TAB PPK#4 PO PRN (14:00)
[2021-07-09] MEDS ORDERED: NON-FORMULARY MEDICATION 1 EA EA (Hyoscyamine Sulfate 0.125 MG) PO PRN (14:00)
[2021-07-09] MEDS ORDERED: polyethylene glycoL POWDER 17 GM (MIRALAX) PACK PO PRN (14:00)
--- NOTE | 2021-07-09 14:25 | Physical Therapy Evaluation ---
PT Evaluation-General Medical Diagnosis Admission Date Jul 09, 2021 at 13:50 Medical Diagnosis: s/p ex lap, DLI takedown and left ureteroneocystostomy Onset Date: Jun 19, 2021 Therapy Diagnosis Therapy Diagnosis: impaired mobility, strength, endurance Height/Weight Height (Feet): 5 Height (Inches): 6.00 Weight (Pounds): 330 Weight (Ounces): 0.0 Referral Physician: Tierra Wright DO Reason for Referral: Evaluation/Treatment Medical History Pertinent Medical History: DM, GERD, HTN Additional Medical History left partial nephrectomy, bilateral glaucoma surgery, bilateral cataracts, DVT, cancer, rectal cancer, anxiety, depression Reviewed History: Yes Social History Home: Single Level Current Living Status: Spouse Entry Into Home: Stairs With Railing PT Steps Into Home: 4 PT Steps Inside Home: 0 Prior Prior Level of Function SCALE: Activities may be completed with or without assistive devices. 9-Pfmhcemtcx-ttqvovd completes the activity by him/herself with no assistance from a helper. 5-Set-up or Clean-up Assistance-helper sets up or cleans up; patient completes activity. [place] assists only prior to or following the activity. 4-Supervision or Touching Assistance-helper provides verbal cues and/or touching/steadying and/or contact guard assistance as patient completes activity. Assistance may be provided throughout the activity or intermittently. 3-Partial/Moderate Assistance-helper does LESS THAN HALF the effort. [place] lifts, holds or supports trunk or limbs, but provides less than half the effort. 2-Substantial/Maximal Assistance-helper does MORE THAN HALF the effort. [place] lifts or holds trunk or limbs and provides more than half the effort. 5-Qdwkwzzjp-tbrfcz does ALL the effort. Patient does none of the effort to complete the activity. Or, the assistance of 2 or more helpers is required for the patient to complete the activity. If activity was not attempted, code reason: 7-Patient Refused. 9-Not Applicable-not attempted and the patient did not perform the activity before the current illness, exacerbation or injury. 10-Not Attempted due to Environmental Limitations-(lack of equipment, weather restraints, etc.). 88-Not Attempted due to Medical Conditions or Safety Concerns. Bed Mobility: 6 Transfers (B,C,W/C): 6 Gait: 6 Stairs: 6 Wheelchair Mobility: 6 Indoor Mobility (Ambulation): Independent Stairs: Independent Prior Devices Use: None PT Evaluation-Current Subjective Patient appeared overwhelmed and agitated to be here today. Patient argued about wearing the gait belt several times. Patient was rude throughout therapy. Pain Location: No Pain Reported Pt/Family Goals To be independent at home. Objective Patient Orientation: Person, Place, Situation Attachments: Lama Catheter ROM/Strength ROM Lower Extremities Grossly WFL bilaterally Strength Lower Extremities R LE: (Hip flexion 4/5, knee extension 5/5, knee flexion 4/5, DF 4/5); R LE: (Hip flexion 4/5, knee extension 5/5, knee flexion 4/5, DF 4/5) Integumentary/Posture Bowel Incontinence: No Bladder Incontinence: Yes Sensory Vision: Wears Glasses Hearing: Functional Hand Dominance: Left Sensation Right Lower Extremit: Intact Sensation Left Lower Extremity: Intact Transfers Roll Left & Right (QC): 6 Sit to Lying (QC): 6 Lying to Sitting/Side of Bed(Q: 3 Sit to Stand (QC): 4 (CGA) Chair/Eyz-mo-Omdgs Xfer(QC): 4 (CGA) Toilet Transfer (QC): 4 (CGA) Car Transfer (QC): 4 (CGA) Gait Does the Patient Walk?: Yes Mode of Locomotion: Walk Anticipated Mode of Locomotion: Walk Walk 10 feet (QC): 4 (CGA) Walk 50 ft with 2 Turns(QC): 4 (CGA) Walk 150 ft (QC): 07 Walking 10ft/uneven surface-QC: 4 (CGA) Distance: 60'x2 Gait Assistive Device: FWW Comments/Gait Description Wide stance, some unsteadiness but no LOB Wheelchair Training Does the Pt Use a Wheelchair?: Yes Wheel 50 ft with 2 turns (QC): 1 Wheel 150 ft (QC): 1 Type of Wheelchair: Manual Stairs #of Steps: 1 1 Step (curb) (QC): 4 4 Steps (QC): 88 12 Steps (QC): 88 Walking Assistive Device: Walker Balance Sitting Static: Good Sitting Dynamic: Good Standing Static: Fair Standing Dynamic: Fair Picking up an Object (QC): 4 Treatment Patient appears to have slight cognitive deficits with behavior Assessment/Needs Patient appeared unmotivated for therapy. Patient demonstrates unsteadiness with ambulation requiring CGA, and requires min assist from transferring from lying to sitting, and CGA with all other transfers. Patient was left in bed with call light, tray and all needs met. PT and OT co-treated for part of the time due to balance issues, weakness, fall risk and safety. Rehab Potential: Fair PT Short Term Goals Short Term Goals Time Frame: Jul 16, 2021 Roll Left & Right: 6 Sit to lyin Lying to sitting on side of be: 4 Sit to stand: 4 (SBA) Chair/zdk-ho-csxai transfer: 4 (SBA) Toilet transfer: 4 (SBA) Car transfer: 4 (SBA) Walk 10 feet: 4 Walk 50 feet with two turns: 4 1 step (curb): 4 (SBA) 4 steps: 3 Does pt use a wc or scooter: No Type: N/A PT Leather Grainer Goals Nursing Home Goals PT Leather Grainer Goals Time Frame: July 30, 2021 Roll Left & Right (QC): 6 Sit to Lying (QC): 6 Lying-Sitting on Side/Bed(QC): 6 Sit to Stand (QC): 6 Chair/Moc-ib-Hgrep Xfer(QC): 6 Toilet Transfer (QC): 6 Car Transfer (QC): 6 Does the Patient Walk: Yes Walk 10 feet (QC): 6 Walk 50ft with 2 Turns (QC): 6 Walk 150 ft (QC): 6 Walking 10ft on Uneven Surface: 6 1 Step (curb) (QC): 6 4 Steps (QC): 6 12 Steps (QC): 9 Picking up an Object (QC): 6 Does the Pt use WC or Scooter?: Yes Wheel 50 feet with 2 turns (QC: 9 Type: Manual Wheel 150 feet: 9 Type: Manual PT Plan Problem List Problem List: Activity Tolerance, Functional Strength, Safety, Balance, Gait, Transfer, Bed Mobility, ROM Treatment/Plan Treatment Plan: Continue Plan of Care Treatment Plan: Bed Mobility, Education, Functional Activity Marco Antonio, Functional Strength, Group Therapy, Gait, Safety, Therapeutic Exercise, Transfers Treatment Duration: July 30, 2021 Frequency: At least 5 of 7 days/Wk (IRF) Estimated Hrs Per Day: 1.5 hours per day Patient and/or Family Agrees t: Yes Safety Risks/Education Patient Education: Gait Training, Transfer Techniques, Steps, Correct Positioning, W/C Management, Safety Issues Teaching Recipient: Patient Teaching Methods: Discussion Response to Teaching: Verbalize Understanding Discharge Recommendations Plan To work on functional strengthening with transfers, ambulation to be safe and independent at home. Therapy Discharge Recommendati: Scheduled Assistance, Home & Family, Post Acute PT Time/GCodes Time In: 1330 Time Out: 1510 Total Billed Treatment Time: 90 Total Billed Treatment 1 visit EVmodC 10' FA 80' PT eval [id number], OT eval [id number], PT and OT co-treatment from [id number] MADHU SHIRLEY PT Jul 09, 2021 14:25
--- NOTE | 2021-07-09 15:21 | Occupational Therapy Eval ---
OT Evaluation-General/PLF Medical Diagnosis Admission Date Jul 09, 2021 at 13:50 Medical Diagnosis: s/p EX LAP, DLI Takedown, L ureteroneocystostomy Onset Date: Jun 19, 2021 Therapy Diagnosis Therapy Diagnosis: decreased ADL status, weakness Height/Weight Height (Feet): 5 Height (Inches): 6.00 Weight (Pounds): 330 Weight (Ounces): 0.0 Referral Physician: Adriana Referral Reason: Evaluation/Treatment Medical History Additional Medical History L partial nephrectomy, B/L glaucoma surgery, HTN, B/L cataracts, DVT, rectal cancer, DM, GERD, Anxiety/depression Current History to [facility] 06/19/21 for closure enterostomy-ileostomy; small bowel resection; ex lap; lysis of adhesisions, wbkvazkrrdjcdzjzrnvk-pfrlob-tjllt hitch. Transfer to ARU 07/09/21 for continued skilled therapy and skilled therapy. Social History Home: Single Level Current Living Status: Spouse Entry Into Home: Stairs With Railing Steps Into Home: 4 ADL-Prior Level of Function SCALE: Activities may be completed with or without assistive devices. 5-Radjrwhnwb-gnwupbk completes the activity by him/herself with no assistance from a helper. 5-Set-up or Clean-up Assistance-helper sets up or cleans up; patient completes activity. Warren assists only prior to or following the activity. 4-Supervision or Touching Assistance-helper provides verbal cues and/or touching/steadying and/or contact guard assistance as patient completes activity. Assistance may be provided throughout the activity or intermittently. 3-Partial/Moderate Assistance-helper does LESS THAN HALF the effort. Warren lifts, holds or supports trunk or limbs, but provides less than half the effort. 2-Substantial/Maximal Assistance-helper does MORE THAN HALF the effort. Warren lifts or holds trunk or limbs and provides more than half the effort. 2-Owgfzqcil-rgyexj does ALL the effort. Patient does none of the effort to complete the activity. Or, the assistance of 2 or more helpers is required for the patient to complete the activity. If activity was not attempted, code reason: 7-Patient Refused. 9-Not Applicable-not attempted and the patient did not perform the activity before the current illness, exacerbation or injury. 10-Not Attempted due to Environmental Limitations-(lack of equipment, weather restraints, etc.). 88-Not Attempted due to Medical Conditions or Safety Concerns. ADL PLOF Comments Pt reports requiring assistance with hygiene with toileting and footwear at baseline. He does not use any AD for functional mobility. He has walk in shower, no SC. Self Care: Needed Some Help DME/Equipment: Shower OT Current Status Subjective Pt required motivation throughout entire session as he complained of weakness and states therapists were pushing him too hard. OT/PT purpose and benefits explained to pt multiple times, with emphasis on increasing strength. Pt would reply that miracles don't happen that quickly. Pt agitated easily throughout session, calling PT "eveline" and "eveline head". Pt attempted to refuse gait belt throughout tx, but after explanation of it being for his safety and policy, he reluctantly allowed gait belt to be placed under his arm pits. Mental Status/Objective Patient Orientation: Person, Place, Situation Attachments: Lama Catheter Current Glasses/Contacts: Yes Hand Dominance: Left Upper Extremity ROM WFL, BUE shoulder flexion to approx 140 degrees Upper Extremity Coordination WFL Upper Extremity Strength grossly 4/5 ADL-Treatment Eating (QC): 5 (Per clinical judgment.) Oral Hygiene (QC): 4 Shower/Bathe Self (QC): 2 (Pt able to wash BUEs, chest/abdomen, required assistance thighs, BLE lower legs/feet, and buttocks.) Upper Body Dressing (QC): 3 (Min A with managing shirt down due to shirt rolling at pt's back) Lower Body Dressing (QC): 3 (Min A with threading RLE into pants. ) On/Off Footwear (QC): 2 (Pt required assistance doffing bilateral socks, pt able to doff shoes, max A with donning gripper socks.) Toileting Hygiene (QC): 3 (Pt requires assistance with hygiene, pt able to manage pant hike.) Pt required increased time with all tasks, and required moderate-max encour agement throughout session to attempt ADLs himself. Other Treatments OT evaluation complete. OT/PT cotreat due to skill of 2 clinicians required which a rehabilitation services coordinator could not perform due to pt's limitations in strength, activity tolerance, mobility/transfers. OT focused on increasing BUE strength and activity tolerance, ADLs, UE placement, cues for sequencing and safety, PT focused on LE placement, gross overall movement, transfers/mobility. Pt performed functional mobility/transfers, using FWW, in/out of car, uneven surface, 1 step, bed mobility. Pt taken back to room, transferring to SC. Pt doffed clothes, port and abdominal dressings covered, then pt completed shower. Pt dried off, then donned clothes. Pt used FWW to transfer to EOB, then supine. Post tx, pt in bed, call light in reach and all needs met. CGA for functional mobility using FWW, CGA sit to stand transfers, min A supine to sit Education OT Patient Education: Correct positioning, Energy conservation, Modified ADL techniques, Progress toward Goal/Update tx plan, Purpose of tx/functional activities, Rehab process, Safety issues, Transfer techniques Teaching Recipient: Patient Teaching Methods: Discussion Response to Teaching: Verbalize Understanding OT Short Term Goals Short Term Goals Time Frame: Jul 20, 2021 Shower/bathe self: 3 Putting on/taking off footwear: 3 OT Correction Goals Medical Records Technician Goals Time Frame: August 03, 2021 Eating (QC): 6 Oral Hygiene (QC): 6 Toileting Hygiene (QC): 4 Shower/Bathe Self (QC): 4 Upper Body Dressing (QC): 5 Lower Body Dressing (QC): 5 On/Off Footwear (QC): 5 Additional Goals: 1-Demonstrate ADL Tasks, 2-Verbalize Understanding, 3- ImproveStrength/[place]co [place] 1=Demonstrate adherence to instructed precautions during ADL tasks. 2=Patient will verbalize/demonstrate understanding of assistive devices/modifications for ADL. 3=Patient will improve strength/tolerance for activity to enable patient to perform ADL's. OT Education/Plan Problem List/Assessment Assessment: Decreased Activ Tolerance, Decreased Safety Aware, Decreased UE Strength, Impaired Bed Mobility, Impaired Cognition, Impaired Funct Balance, Impaired I ADL's, Impaired Self-Care Skills Discharge Recommendations Plan/Recommendations: Continue POC Treatment Plan/Plan of Care Patient would benefit from OT for education, treatment and training to promote independence in ADL's, mobility, safety and/or upper extremity function for A DL's. Plan of Care: ADL Retraining, Functional Mobility, Group Exercise/Act as Ind, UE Funct Exercise/Act Treatment Duration: August 03, 2021 Frequency: At least 5 of 7 days/Wk (IRF) Estimated Hrs Per Day: .25 hour per day Agreement: Yes Rehab Potential: Fair Time/GCodes Start Time: 13:40 Stop Time: 15:10 Total Time Billed (hr/min): 90 Billed Treatment Time 6435-7148 OT eval, [id number] Cotreat 1, EVM (10'), FA 2 (30'), ADL 3 (50') DANNA CHAVARRIA OT Jul 09, 2021 15:21
[2021-07-09] MEDS ORDERED: HYOSCYAMINE 0.125 MG (LEVSIN) TAB PO PRN (15:30)
[2021-07-09] MEDS ORDERED: DIPHENOXYLATE/ATROPINE 2.5MG/0.025MG (LOMOTIL) TAB PO PRN (16:00)
--- NOTE | 2021-07-09 16:43 | Progress Note ---
RAJI BAR MED STUDENT 07/09/21 1643: Progress Note HPI: Jim is a 50 yo M with extensive past medical and past surgical histories, who has been admitted to the acute rehab unit. Past medical history significant for rectal adenocarcinoma. This was found via colonoscopy performed by Dr. Eaton in August of 2020. He underwent a exploratory laparotomy with DLI at [facility] on 02/08/21. This surgery was complicated by L ureteral injury, requiring a L nephrostomy tube. He was then treated with both chemotherapy and radiation, here in [place], [place]. Pt went for ileostomy takedown and ureteroneocystostomy at [facility] on 06/19/21. states that this was further complicated by lung puncture resulting in L lung collapse and development of pneumonia. She further endorses the development of sepsis from infection of the stoma, and that two abscesses were also present. On 07/03/21 pt had stent placed for R ureteral stone. At that time, his urine culture was positive for proteus over 100,000, subsequently treated with ampicillin and fluconazole. Today, Jim is unable to perform most ADL's without assistance. He also endorses being weak when trying to move around. He states that this is mainly from the extreme fatigue that he has. Pt has also had significant weight loss, weighing in today at 56.8 kg, in October of 2020, he was at 143.2 kg. Pt is not having issues with bowel movements at this time. ROS: Endorses: dizziness, weakness, fatigue, weight loss, cough, diarrhea, apettite changes, hematuria Denies: headaches, vision changes, Shortness of breath, chest pain, palpitations, tachycardia, nausea, vomiting, constipation, dysuria, frequency Past medical history - rectal adenocarcinoma, DM2, GERD, Hypertension, glaucoma, bilateral cataracts, history of DVT, anxiety, depression, bipolar disorder, urosepsis, nephrolithiasis Past surgical history - exploratory laparotomy, DLI takedown, L ureteroneocystostomy, R ureteral stent placement, bilateral ureteral stent placement, L nephrostomy tube placement Family history - DM2, hyperlipidemia, hypothyroidism, seizures, lung cancer, other various cancers, heart disease, CAD. Social history - Pt has been living in a prison, located in [facility], since surgery in Jan 2021. He is . Former smoke. Allergies: Penicillins Physical exam General: pale appearance, sleepy, alert, oriented x3 HEENT: PERRLA, EOMI, no scleral icterus, no cervical lymphadenopathy Pulmonary: Decreased air movement, Diminshed lung sounds in bilateral bases Cardiac: RRR, no murmurs Abd: soft, non-tender, non-distended Extremities: normal peripheral pulses, decreased capillary refil time, bilateral lower extremities non-edematous Assessment - Medically complex individual - Diminished ability of ADL's - Decreased upper and lower extremity strength - Anemia - Hematuria Plan - Admit to the Acute rehab unit - Keep under close medical supervision - Restart home medications - PT/OT evaluations - Social work evaluation - CBC, CMP in the morning - Regular diet, as tolerated, supplementation with nutritionally dense drinks TIERRA WRIGHT DO 07/10/21 0535: Supervisory-Addendum Brief Verification & Attestation Participated in pt care: history, MDM, physical Personally performed: exam, history, MDM, supervision of care Care discussed with: Medical Student Procedures: n/a Results interpretation: Verified all documentation Verification and Attestation of Medical Student E/M Service A medical student performed and documented this service in my presence. I reviewed and verified all information documented by the medical student and made modifications to such information, when appropriate. I personally performed the physical exam and medical decision making. Tierra Wright, Jul 10, 2021,05:34 RAJI BAR MED STUDENT Jul 09, 2021 16:43 TIERRA WRIGHT DO Jul 10, 2021 05:35
[2021-07-09 19:38] VITALS: BP 138/70
--- NOTE | 2021-07-09 20:11 | PM&R Post Admission Assessment ---
PM&R HP Date of Visit: Jul 09, 2021 Time of Visit: 18:15 History of Present Illness Chief complaint: Critical illness myopathy History of present illness: This is a 50-year-old white male who has a history of rectal cancer diagnosed August [address] Eaton who presents from after extensive surgeries to manage the cancer. He did complete chemotherapy and radiation and underwent ileostomy takedown with multiple complications including left ureteral injury and left sided pneumothorax. He currently is fatigued but having no significant pain as long as does not move. Patient does have developmental disability per . Checked meds and labs. HPI: Jim is a 50 yo M with extensive past medical and past surgical histories, who has been admitted to the acute rehab unit. Past medical history significant for rectal adenocarcinoma. This was found via colonoscopy performed by Dr. Eaton in August of 2020. He underwent a exploratory laparotomy with DLI at [facility] on 02/08/21. This surgery was complicated by L ureteral injury, requiring a L nephrostomy tube. He was then treated with both chemotherapy and radiation, here in [place], [place]. Pt went for ileostomy takedown and ureteroneocystostomy at [facility] on 06/19/21. states that this was further complicated by lung puncture resulting in L lung collapse and development of pneumonia. She further endorses the development of sepsis from infection of the stoma, and that two abscesses were also present. On 07/03/21 pt had stent placed for R ureteral stone. At that time, his urine culture was positive for proteus over 100,000, subsequently treated with ampicillin and fluconazole. Today, Jim is unable to perform most ADL's without assistance. He also endorses being weak when trying to move around. He states that this is mainly from the extreme fatigue that he has. Pt has also had significant weight loss, weighing in today at 56.8 kg, in October of 2020, he was at 143.2 kg. Pt is not having issues with bowel movements at this time. ROS: Endorses: dizziness, weakness, fatigue, weight loss, cough, diarrhea, apettite changes, hematuria Denies: headaches, vision changes, Shortness of breath, chest pain, palpitations, tachycardia, nausea, vomiting, constipation, dysuria, frequency Past medical history - rectal adenocarcinoma, DM2, GERD, Hypertension, glaucoma, bilateral cataracts, history of DVT, anxiety, depression, bipolar disorder, urosepsis, nephrolithiasis Past surgical history - exploratory laparotomy, DLI takedown, L ureteroneocystostomy, R ureteral stent placement, bilateral ureteral stent placement, L nephrostomy tube placement Family history - DM2, hyperlipidemia, hypothyroidism, seizures, lung cancer, other various cancers, heart disease, CAD. Social history - Pt has been living in a detention, located in [facility], since surgery in Jan 2021. He is . Former smoke. Allergies: Penicillins Physical exam General: pale appearance, sleepy, alert, oriented x3 HEENT: PERRLA, EOMI, no scleral icterus, no cervical lymphadenopathy Pulmonary: Decreased air movement, Diminshed lung sounds in bilateral bases Cardiac: RRR, no murmurs Abd: soft, non-tender, non-distended Extremities: normal peripheral pulses, decreased capillary refil time, bilateral lower extremities non-edematous Assessment - Medically complex individual - Diminished ability of ADL's - Decreased upper and lower extremity strength - Anemia - Hematuria Plan - Admit to the Acute rehab unit - Keep under close medical supervision - Restart home medications - PT/OT evaluations - Social work evaluation - CBC, CMP in the morning - Regular diet, as tolerated, supplementation with nutritionally dense drinks Past Gfobavm-Kjdkaw-Yzchiq Hx Past Med/Social Hx: Reviewed Nursing Past Med/Soc Hx, Reviewed and Corrections made Patient Social History Marrital Status: Employed/Student: unemployed Alcohol Use: Denies Use Drug of Choice: DENIES Smoking Status: Former Smoker Type Used: Cigarettes 2nd Hand Smoke Exposure: No Recent Hopitalizations: No (MAY 2020 SEPTIC ) Immunizations Up To Date Date of Pneumonia Vaccine: Dec 29, 2016 Date of Influenza Vaccine: Jan 03, 2020 Seasonal Allergies Seasonal Allergies: No Past Medical History Surgeries: Abdominal, Eye Surgery, Renal Respiratory: Pneumonia Pneumothorax left Currently Using CPAP: No Currently Using BIPAP: No Cardiac: Hypertension Neurological: Developmental Disorder Genitourinary: Kidney Stones Gastrointestinal: Polyps HEENT: Cataract, Glaucoma Cancer: Colon Did You Recieve Any Treatments: Yes What Type of Treatment Did You: Chemotherapy, Radiation Psychosocial: ADD/ADHD, Anxiety, Bipolar, Personality Disorder, Depression History of Blood Disorders: No Family History No Pertinent Family Hx Prior Level of Function Bed Mobility: 6 Transfers: 6 Gait: 6 Stairs: 6 Wheelchair Mobility: 6 Indoor Mobility (Ambulation): Independent Stairs: Independent Prior Devices Use: None Self Care: Needed Some Help Current Level of Fuctioning Roll Left to Right: 6 Sit to Lyin Lying to Sitting/Side of Bed: 3 Sit to Stand: 4 (CGA) Chair/Rjj-ph-Vxlkd Xfer: 4 (CGA) Car Transfer: 4 (CGA) Does the Patient Walk: Yes Mode of Locomotion: Walk Anticipated Mode of Locomotion: Walk Walk 10 feet: 4 (CGA) Walk 50 ft with 2 Turns: 4 (CGA) Walk 150 ft: 07 Walking 10ft on uneven surface: 4 (CGA) Gait Assistive Device: FWW Does the Pt Use a Wheelchair: Yes Wheel 50 ft with 2 turns: 1 Wheel 150 ft: 1 Type of Wheelchair: Manual #of Steps: 1 1 Step (curb): 4 4 Steps: 88 Walking Assistive Device: Walker 12 Steps: 88 Picking up an Object: 4 Eatin (Per clinical judgment.) Oral Hygiene: 4 Shower/Bathe Self: 2 (Pt able to wash BUEs, chest/abdomen, required assistance thighs, BLE lower legs/feet, and buttocks.) Upper Body Dressin (Min A with managing shirt down due to shirt rolling at pt's back) Lower Body Dressin (Min A with threading RLE into pants. ) On/Off Footwear: 2 (Pt required assistance doffing bilateral socks, pt able to doff shoes, max A with donning gripper socks.) Toileting Hygiene: 3 (Pt requires assistance with hygiene, pt able to manage pant hike.) PM&R Allergy/Meds/Data Review Allergies Coded Allergies: Penicillins (Verified Allergy, Unknown, RASH, 07/09/21) Per [facility] records (07/09/21) has tolerated amoxicillin and piperacillin/tazobactam. Home Medications Scheduled Amoxicillin/Potassium Clav (Amox Tr-K Clv 500-125 mg Tab), 1 EACH PO BID, (Reported) Apixaban (Eliquis), 5 MG PO BID, (Reported) Arginine (Arginine), 500 MG PO DAILY, (Reported) Brimonidine Tartrate (Alphagan P), 1 DROP OS BID, (Reported) Cyanocobalamin (Vitamin B-12) (Vitamin B-12), 1,000 MCG PO DAILY, (Reported) Docusate Sodium (Docusate Sodium), 100 MG PO BID, (Reported) Duloxetine HCl (Duloxetine HCl), 60 MG PO DAILY, (Reported) Duloxetine HCl (Duloxetine HCl), 30 MG PO DAILY, (Reported) Famotidine (Acid Dental Chair Assembler (FAMOTIDINE)), 20 MG PO BID, (Reported) Ferrous Sulfate (Ferrous Sulfate), 325 MG PO DAILY, (Reported) Fluconazole (Fluconazole), 150 MG PO DAILY, (Reported) Latanoprost (Xalatan), 1 DROP OS HS, (Reported) Oxcarbazepine (Oxcarbazepine), 900 MG PO DAILY, (Reported) Oxybutynin Chloride (Oxybutynin Chloride ER), 10 MG PO DAILY, (Reported) Potassium Chloride (Potassium Chloride), 10 MEQ PO DAILY, (Reported) Sodium Bicarbonate (Sodium Bicarbonate), 650 MG PO TID, (Reported) Tamsulosin HCl (Flomax), 0.4 MG PO DAILY, (Reported) Timolol Maleate (Timolol Maleate 0.5%), 1 DROP OS BID, (Reported) Trazodone HCl (Trazodone HCl), 50 MG PO HS, (Reported) Vitamin E Mixed (Vitamin E), 400 UNIT PO DAILY, (Reported) Scheduled PRN Acetaminophen (Tylenol), 650 MG PO Q4H PRN for PAIN-MILD (1-4), (Reported) Diphenoxylate HCl/Atropine (Lomotil 2.5-0.025 mg Tablet), 1 EACH PO Q12H PRN for DIARRHEA, (Reported) Glucagon HCl (Glucagon Emergency Kit), 1 MG IJ ONCE PRN for HYPOGLYCEMIA, (Reported) Hyoscyamine Sulfate (Hyoscyamine Sulfate), 0.125 MG PO Q4H PRN for CRAMPS, (Reported) Methocarbamol (Methocarbamol), 750 MG PO BID PRN for SPASMS, (Reported) Polyethylene Glycol 3350 (Polyethylene Glycol 3350), 17 GM PO DAILY PRN for CONSTIPATION-2ND LINE, (Reported) Tramadol HCl (Tramadol HCl), 50 MG PO Q8H PRN for PAIN-MODERATE (5-7), (Reported) Discontinued Medications Latanoprost/Pf (Latanoprost 0.005% Eye Drop), 1 DROP OS HS, (Reported) Discontinued Reason: Prescription changed Current Medications Current Medications Reviewed Review of Systems Constitutional: see HPI, dizziness, malaise, weakness EENTM: no symptoms reported Respiratory: no symptoms reported Cardiovascular: no symptoms reported Gastrointestinal: abdominal pain, loss of appetite, nausea, vomiting Genitourinary: no symptoms reported Musculoskeletal: back pain, joint pain Skin: no symptoms reported Psychiatric/Neurological: Anxiety, Depressed All Other Systems Reviewed Negative Unless Noted: Yes Physical Exam Physical Exam Vital Signs Vital Signs - First Documented 07/09/21 13:40 Temp 37.1 Pulse 115 Resp 18 B/P (MAP) 131/85 (100) Pulse Ox 96 O2 Delivery Room Air Capillary Refill : Height, Weight, BMI Height: 5'6.00" Weight: 330lbs. 0.0oz. 149.096480cf; 42.76 BMI Method:Stated General Appearance: No Apparent Distress, WD/WN, Chronically ill, Obese Eyes: Bilateral Eye Normal Inspection, Bilateral Eye PERRL HEENT: PERRL/EOMI, Normal ENT Inspection, Pharynx Normal Neck: Full Range of Motion, Normal Inspection, Non Tender, Supple, Carotid Bruit Respiratory: Chest Non Tender, Lungs Clear, Normal Breath Sounds, No Accessory Muscle Use, No Respiratory Distress, Decreased Breath Sounds Cardiovascular: Regular Rate, Rhythm, No Edema, No Gallop, No JVD, No Murmur, Normal Peripheral Pulses Gastrointestinal: Normal Bowel Sounds, No Organomegaly, No Pulsatile Mass, Soft, Tenderness Back: Normal Inspection, No CVA Tenderness, No Vertebral Tenderness Extremity: Normal Capillary Refill, Normal Inspection, Normal Range of Motion, Non Tender, No Calf Tenderness, No Pedal Edema Neurologic/Psychiatric: Alert, Oriented x3, No Motor/Sensory Deficits, Normal Mood/Affect, Depressed Affect Skin: Normal Color, Warm/Dry Lymphatic: No Adenopathy PM&R Medical Assessment & Plan REHAB/MEDICAL ASSESSMENT AND PLAN: REHAB IMPAIRMENT GROUP: Myopathy ETIOLOGIC DIAGNOSIS: Myopathy The comorbidities that impact the patients function and/or functional outcome by: Intellectual deficiency, profound weight loss, complicated bowel surgeries REHAB PLAN: The patient is being admitted to our comprehensive inpatient rehabilitation facility and can tolerate the intensity of service consisting of at least: 180 minutes of therapy a day, 5 out of 7 days a week Rehab treatment will consist of: PT and OT will focus on regaining function with use of assistive devices in order to regain function and ultimately return back to home The patient/family has a good understanding of our discharge process and will benefit from an interdisciplinary inpatient rehabilitation program. The patient has potential to make improvement and is in need of at least two of the following multidisciplinary therapies including but not limited to physical, occupational, speech, and prosthetics and orthotics. Additionally the patient will need services from respiratory, nutritional services, wound care, psychology, etc. (Customize this to each patient). Given the patients complex condition and risk of further medical complications, rehabilitation services cannot be safely or effectively provided at a lower level of care such as a assisted facility. BARRIERS TO DISCHARGE: Profound debility ESTIMATED LOS: 10 days DISPOSITION: Home with RELEVANT CHANGES SINCE PREADMISSION SCREENING: I have compared the patients medical and functional status at the time of the preadmission screening and there are: no changes PROGNOSIS: Guarded REHABILITATION GOALS: 1. PT and OT will focus on regaining function with use of assistive devices in order to regain function and ultimately return back to home All the above goals were reviewed with the patient and he/she is in agreement. By signing this document, I acknowledge that I have personally performed a full physical examination on this patient within 24 hours of admission to this inpatient rehabilitation facility and have determined the patient to be able to tolerate the above course of treatment at an intensive level for a reasonable period of time. I will be completing a detailed individualized Plan of Care for this patient by day #4 of the patients stay based upon the Preadmission Screen, the Post-Admission Evaluation, and the therapy evaluations. Admission Dx/Comorbidities: (1) Rectal carcinoma ICD Codes: C20 - Malignant neoplasm of rectum (2) Hypertension ICD Codes: I10 - Essential (primary) hypertension (3) Intellectual delay ICD Codes: F81.9 - Developmental disorder of scholastic skills, unspecified (4) Weight loss ICD Codes: R63.4 - Abnormal weight loss (5) Nephrostomy status ICD Codes: Z93.6 - Other artificial openings of urinary tract status (6) Status post pneumothorax ICD Codes: Z87.09 - Personal history of other diseases of the respiratory system (7) Left ureteral injury ICD Codes: S37.10XA - Unspecified injury of ureter, initial encounter (8) Former smoker ICD Codes: Z87.891 - Personal history of nicotine dependence (9) Anemia ICD Codes: D64.9 - Anemia, unspecified Assessment/Plan Assessment and Plan Assess & Plan/Chief Complaint Assessment: Critical illness myopathy Rectal carcinoma August 2020 diagnosis status post radiation and chemotherapy Status post ileostomy takedown at Recent left-sided pneumothorax Recent left ureteral injury status post nephrostomy tube Bipolar disorder Intellectual delay Former smoker Hypertension Diabetes GERD Oral anticoagulation History of DVT Plan: Inpatient rehab protocol Pain control Monitor labs Consult RADHA Mason DO Jul 09, 2021 20:11
[2021-07-09] MEDS: polyethylene glycoL POWDER 17 GM (MIRALAX) PACK PO SCH (20:30)
[2021-07-09] MEDS: SENNA W/DOCUSATE (SENOKOT S) TABLET PO SCH (20:30)
[2021-07-09] MEDS: DOCUSATE SODIUM 100 MG (COLACE) CAP PO SCH (20:30)
[2021-07-09] MEDS ORDERED: DOCUSATE SODIUM 100 MG (COLACE) CAP PO SCH (21:00)
[2021-07-09] MEDS ORDERED: NON-FORMULARY MEDICATION 1 EA EA (Brimonidine Tartrate (Alphagan P) 1 DROP) OS SCH (21:00)
[2021-07-09] MEDS: traZODone 50 MG (DESYREL) TAB PO SCH (22:53)
[2021-07-09] MEDS: SODIUM BICARBONATE 650 MG TABLET PO SCH (22:53)
[2021-07-09] MEDS: OXYBUTYNIN (DITROPAN) 5 MG TAB PO SCH (22:53)
[2021-07-09] MEDS: AUGMENTIN 500 MG TAB (AMOXICILLIN/CLAVULANATE) PO SCH (22:54)
[2021-07-09] MEDS: APIXABAN 5 MG (ELIQUIS) TABLET PO SCH (22:54)
[2021-07-09] MEDS: FAMOTIDINE 20 MG (PEPCID) TABLET PO SCH (22:54)
[2021-07-09] MEDS: TIMOLOL MALEATE 0.5% 5 ML (TIMOPTIC) BTL OS SCH (22:56)
[2021-07-09] MEDS: BRIMONIDINE 0.2% (ALPHAGAN) OPHTH SOLN 5 ML BTL OS SCH (22:56)
[2021-07-09] MEDS: LATANOPROST 0.005% (XALATAN) OPHTH SOLN 2.5 ML OS SCH (22:57)
[2021-07-10] MEDS: ACETAMINOPHEN 325 MG TABLET PO PRN (01:23)
[2021-07-10] MEDS: CYANOCOBALAMIN 1,000 MCG (VITAMIN B-12) TABLET PO SCH (06:04)
--- NOTE | 2021-07-10 06:22 | PM&R Progress Note ---
Subjective HPI/CC On Admission Date Seen by Provider: Jul 10, 2021 Time Seen by Provider: 09:30 Subjective/Events-last exam 07/10/2021: Patient settling in well Worked with PT today No pain is reported until he moves He was able to eat a bit Profound weight loss since diagnosis August 2020 Labs reviewed Checking iron level Review of Systems General: Fatigue, Malaise Gastrointestinal: Abdominal Pain Objective Exam Vital Signs Vital Signs Date Time Temp Pulse Resp B/P (MAP) Pulse Ox O2 Delivery O2 Flow Rate FiO2 07/10/21 20:42 37.3 104 20 136/69 (91) 98 Room Air Capillary Refill : General Appearance: No Apparent Distress, WD/WN, Chronically ill, Obese HEENT: PERRL/EOMI, Normal ENT Inspection, Pharynx Normal Neck: Full Range of Motion, Normal Inspection, Non Tender, Supple, Carotid Bruit Respiratory: Chest Non Tender, Lungs Clear, Normal Breath Sounds, No Accessory Muscle Use, No Respiratory Distress, Decreased Breath Sounds Cardiovascular: Regular Rate, Rhythm, No Edema, No Gallop, No JVD, No Murmur, Normal Peripheral Pulses Gastrointestinal: Normal Bowel Sounds, No Organomegaly, No Pulsatile Mass, Soft, Tenderness Back: Normal Inspection, No CVA Tenderness, No Vertebral Tenderness Extremity: Normal Capillary Refill, Normal Inspection, Normal Range of Motion, Non Tender, No Calf Tenderness, No Pedal Edema Neurologic/Psychiatric: Alert, Oriented x3, No Motor/Sensory Deficits, Normal Mood/Affect, Depressed Affect Skin: Normal Color, Warm/Dry Lymphatic: No Adenopathy Results/Procedures Lab Laboratory Tests 07/10/21 06:00 Patient resulted labs reviewed. FIM Transfers Therapy Code Descriptions/Definitions Functional [place] Measure: 0=Not Assessed/NA 4=Minimal Assistance 1=Total Assistance 5=Supervision or Setup 2=Maximal Assistance 6=Modified [place] 3=Moderate Assistance 7=Complete IndependenceSCALE: Activities may be completed with or without assistive devices. 4-Finevktoen-kizzbia completes the activity by him/herself with no assistance from a helper. 5-Set-up or Clean-up Assistance-helper sets up or cleans up; patient completes activity. Moore assists only prior to or following the activity. 4-Supervision or Touching Assistance-helper provides verbal cues and/or touching/steadying and/or contact guard assistance as patient completes ac tivity. Assistance may be provided throughout the activity or intermittently. 3-Partial/Moderate Assistance-helper does LESS THAN HALF the effort. Moore lifts, holds or supports trunk or limbs, but provides less than half the effort. 2-Substantial/Maximal Assistance-helper does MORE THAN HALF the effort. Moore lifts or holds trunk or limbs and provides more than half the effort. 0-Mvylheabe-kutwgr does ALL the effort. Patient does none of the effort to complete the activity. Or, the assistance of 2 or more helpers is required for the patient to complete the activity. If activity was not attempted, code reason: 7-Patient Refused. 9-Not Applicable-not attempted and the patient did not perform the activity before the current illness, exacerbation or injury. 10-Not Attempted due to Environmental Limitations-(lack of equipment, weather restraints, etc.). 88-Not Attempted due to Medical Conditions or Safety Concerns. Roll Left to Right (QC): 6 Sit to Lying (QC): 6 Sit to Stand (QC): 4 (CGA) Chair/Esr-vm-Dboht Xfer(QC): 4 (CGA) Car Transfer (QC): 4 (CGA) Gait Training Does the Patient Walk?: Yes Walk 10 feet (QC): 4 (CGA) Walk 50 ft with 2 Turns(QC): 4 (CGA) Walk 150 ft (QC): 07 Walking 10ft/uneven surface-QC: 4 (CGA) Gait Assistive Device: FWW Wheelchair Training Does the Pt Use a Wheelchair?: Yes Wheel 50 ft with 2 turns (QC): 1 Wheel 150 ft (QC): 1 Type of Wheelchair: Manual Stair Training #of Steps: 1 1 Step (curb) (QC): 4 4 Steps (QC): 88 12 Steps (QC): 88 Balance Picking up an Object (QC): 4 ADL-Treatment Eating (QC): 5 (Per clinical judgment.) Oral Hygiene (QC): 4 Shower/Bathe Self (QC): 2 (Pt able to wash BUEs, chest/abdomen, required assistance thighs, BLE lower legs/feet, and buttocks.) Upper Body Dressing (QC): 3 (Min A with managing shirt down due to shirt rolli ng at pt's back) Lower Body Dressing (QC): 3 (Min A with threading RLE into pants. ) On/Off Footwear (QC): 2 (Pt required assistance doffing bilateral socks, pt able to doff shoes, max A with donning gripper socks.) Toileting Hygiene (QC): 3 (Pt requires assistance with hygiene, pt able to manage pant hike.) Assessment/Plan Assessment and Plan Assess & Plan/Chief Complaint Assessment: Critical illness myopathy Rectal carcinoma August 2020 diagnosis status post radiation and chemotherapy Status post ileostomy takedown at Recent left-sided pneumothorax Recent left ureteral injury status post nephrostomy tube Bipolar disorder Intellectual delay Former smoker Hypertension Diabetes GERD Oral anticoagulation History of DVT Plan: Inpatient rehab protocol Pain control Monitor labs Consult Dr. Eaton 07/10/21: Monitor fever Await B12 and iron level Supportive care (1) Rectal carcinoma (2) Hypertension (3) Intellectual delay (4) Weight loss (5) Nephrostomy status (6) Status post pneumothorax (7) Left ureteral injury (8) Former smoker (9) Anemia RADHA MCKAY DO Jul 10, 2021 06:22
--- NOTE | 2021-07-10 06:23 | Individualized Plan of Care ---
Individualized Plan of Care Rehab Nursing IPOC Order Admission Date Jul 09, 2021 at 13:50 Current Orders Orders Admission Order(Inpt,Obs,Sdc) (07/09/21 11:01) Vital Signs: Per Unit Policy ( 08,16,00 (07/09/21 11:01) Gerardo Berrios (07/09/21 11:01) Sequential Compression Device (07/09/21 11:01) Property Utilization Officer-Inpt Rehab Con (07/09/21 11:) Rehab Nursing Orders-Ipoc (07/09/21 11:01) Physical Therapy Rehab Orders (07/09/21 11:01) Occupational Therapy Rehab Ord (07/09/21 11:) Speech Therapy Rehab Orders (07/09/21:) Cbc With Automated Diff (07/10/21 06:00) Comprehensive Metabolic Panel (07/10/21 06:00) Precautions (Aru) (07/09/21 11:) Rehab-Intensity Of Therapy (07/09/21 11:) Initiate Admission Nursing Pro .admission (07/09/21 11:01) Alprazolam Tablet (Xanax Tablet) (07/09/21 11:15) Calcium Carbonate Chew Tablet (Antacid C (07/09/21 11:15) Diphenhydramine Tablet (Benadryl Tablet) (07/09/21 11:15) Docusate Sodium Capsule (Colace Capsule) (07/09/21 21:00) Docusate Sodium Capsule (Colace Capsule) (07/09/21 11:15) Bisacodyl Suppository (Dulcolax Supposit (07/09/21 11:15) Lactulose Oral Solution (Enulose Oral So (07/09/21 11:15) Na Phos/Na Biphos Enema (Fleet Enema Stalin (07/09/21 11:15) Guaifenesin/Codeine Syrup (Robitussin Ac (07/09/21 11:15) Loperamide Tablet (Imodium Tablet) (07/09/21 11:15) Melatonin Tablet (Melatonin Tablet) (07/09/21 11:15) Polyethylene Glycol Powder Pkt (Miralax (07/09/21 21:00) Ondansetron Oral Dissolve Tab (Zofran (07/09/21 11:15) Senna S Tablet (Senokot S Tablet) (07/09/21 21:00) Acetaminophen Tablet/Caplet (Tylenol T (07/09/21 11:15) Code/Resuscitation (07/09/21 11:01) Initiate Admission Nursing Pro .admission (07/09/21 11:01) Diclofenac 1% Gel (Voltaren 1% Gel) (07/09/21 11:15) Miconazole 2% Powder (Phytoplex Af 2% Po (07/09/21 11:15) Admission Arrival Bed Request (07/09/21 13:39) Apixaban Tablet (Eliquis Tablet) (07/09/21 21:00) Rx-Diphenoxylate/Atropine (Rx-Lomotil 2. (07/09/21 14:00) Docusate Sodium Capsule (Colace Capsule) (07/09/21 21:00) Duloxetine Capsule (Cymbalta Capsule) (07/10/21 09:00) Famotidine Tablet (Pepcid Tablet) (07/09/21 21:00) Ferrous Sulfate Tablet (Feosol Tablet) (07/10/21 09:00) Fluconazole Tablet (Ed Only) (Diflucan T (07/10/21 09:00) Latanoprost 0.005% Ophth Soln (Xalatan 0 (07/09/21 21:00) Methocarbamol Tablet (Robaxin Tablet) (07/09/21 14:00) Oxcarbazepine Tablet (Trileptal Tablet) (07/10/21 09:00) Polyethylene Glycol Powder Pkt (Miralax (07/09/21 14:00) Sodium Bicarbonate Tablet (Sodium Bicarb (07/09/21 21:00) Tamsulosin Capsule (Flomax Capsule) (07/10/21 09:00) Timolol 0.5% Ophthalmic Soln (Timoptic 0 (07/09/21 21:00) Rx-Tramadol Hcl (Rx-Ultram) (07/09/21 14:00) Trazodone Tablet (Desyrel Tablet) (07/09/21 21:00) (Nf) Arginine (07/10/21 09:00) (Nf) Brimonidine Tartrate (Alphagan P) (07/09/21 21:00) (Nf) Cyanocobalamin (Vitamin B-12) (Gracia (07/10/21 09:00) (Nf) Duloxetine Hcl (07/10/21 09:00) (Nf) Hyoscyamine Sulfate (07/09/21 14:00) (Nf) Oxybutynin Chloride (Oxybutynin Chl (07/10/21 09:00) (Nf) Potassium Chloride (07/10/21 09:00) (Nf) Vitamin E Mixed (Vitamin E) (07/10/21 09:00) Amoxicillin/Clavulanate Tablet (Augmenti (07/09/21 21:00) Potassium Chloride (Tablet) (Klor Con Ta (07/10/21 07:00) Potassium Chloride (Tablet) (K Dur Table (07/10/21 07:00) Patient Visit (07/09/21 ) Pt Eval Moderate Complexity (07/09/21 ) Functional Activities, Ea 15 (07/09/21 ) Hyoscyamine Sl Tablet (Levsin Sl Tablet) (07/09/21 15:30) Diphenoxylate/Atropine Tablet (Lomotil T (07/09/21 16:00) General/Regular (07/09/21 Dinner) Tramadol Tablet (Ultram Tablet) (07/09/21 16:00) Brimonidine 0.2% Ophth Soln (Alphagan (07/09/21 21:00) Dl-Alpha Tochopheryl Capsule (Vitamin E (07/10/21 09:00) Cyanocobalamin Tablet (Vitamin B-12 Tabl (07/10/21 07:00) Oxybutynin Tablet (Ditropan Tablet) (07/09/21 21:00) Consult General Surgery (07/09/21 18:35) Nursing Communication (Order) (07/09/21 18:41) Nursing Communication (Order) (07/09/21 20:42) Potassium Chloride (Tablet) (K Dur Table (07/10/21 13:00) Iron Test (Fe) (07/10/21 09:00) Vitamin B 12 (07/10/21 09:00) Procalcitonin (Pct) (07/10/21 09:00) Patient Visit (07/10/21 ) Speech Sound Lang Comp (07/10/21 ) Treat. Speech/Lang/Voice (07/10/21 ) Patient Visit (07/10/21 ) Functional Activities, Ea 15 (07/10/21 ) Incentive Spirometry (Nursing) Q2H (07/10/21 19:36) Iron Sucrose Injection (Venofer Injectio (07/11/21 09:00) Rehab Nursing Orders: Ongoing Assess. of Cognitive Status, Ongoing Assess. of Function Status, Bladder Management, Bladder Scan, Bladder Training, Bowel Management, Bowel Training, Disease Management & Educaiton, DVT Prophylaxis, Fall Prevention, Fluid/Electrolyte/Nutrition Mgmt, Infection Prevention, Medication Management & Education, Management of Risks & Complications, Management of Skin Intergrity, Nutrition Management, Pain Management, Patient/Family Support, Safety Management Intensity of Therapy to be met Patient to be seen: Min.3h per day/5 of 7d PT IPOC Problem List: Activity Tolerance, Functional Strength, Safety, Balance, Gait, Transfer, Bed Mobility, ROM Treatment Plan: Continue Plan of Care Bed Mobility, Education, Functional Activity Marco Antonio, Functional Strength, Group Therapy, Gait, Safety, Therapeutic Exercise, Transfers Treatment Duration: July 30, 2021 Frequency: At least 5 of 7 days/Wk (IRF) Estimated Hrs Per Day: 1.5 hours per day OT IPOC Problems: Decreased Activ Tolerance, Decreased Safety Aware, Decreased UE Strength, Impaired Bed Mobility, Impaired Cognition, Impaired Funct Balance, Impaired I ADL's, Impaired Self-Care Skills OT Treatment, Training and Edu: Yes Plan of Care: ADL Retraining, Functional Mobility, Group Exercise/Act as Ind, UE Funct Exercise/Act Treatment Duration: August 03, 2021 Frequency: At least 5 of 7 days/Wk (IRF) Estimated Hrs Per Day: .[address] IPOC Speech Therapy Treatment Plan: Discontinue ST Treatment Duration: Jul 10, 2021 Frequency: Modified Program (IRF) Estimated Hrs Per Day: Other Property Utilization Officer/Case Mgmt Property Utilization Officer/Case Managemen: Discharge Planning Dietitian/Sports Journalist Dietitian/Sports Journalist to monitor nutritional status and make changes and/or recommendations as needed and work with speech pathology on dietary upgrades as the occur. Physician IPOC Medical Issues being managed closely and that require the 24 hour availability of a physician: Recent extensive uncomplicated ileostomy takedown with Lama catheter in place and severe anemia with overall severe debility with weight loss will be at high risk for decompensation Medical Issues: Bowel/Bladder Function, DVT Prophylaxis, Falls Precautions, Fluid/Electrolyte/Nutrition Balance, Infection Protection, Pain Management, Wound Care Brief Synthesis of Preadmission Screen, Post-Admission Evaluation, and Therapy Evaluations: PT and OT will focus on regaining function with assistive devices to help with ambulation independent ADLs in order to return back home Medical Prognosis: Fair Anticipated Length of Stay: 10 days RADHA MCKAY DO Jul 10, 2021 06:23
[2021-07-10 06:24] LABS: ALBUMIN 3.1 GM/DL (3.2-4.5)
[2021-07-10 06:25] LABS: POTASSIUM 3.4 MMOL/L (3.6-5.0)
[2021-07-10 06:26] LABS: BASOPHILS % (AUTO) 0 % (0-10); EOSINOPHILS # (AUTO) 0.2 10^3/uL (0.0-0.3); EOSINOPHILS % (AUTO) 2 % (0-10); HEMATOCRIT 24 % (40-54); HEMOGLOBIN 7.5 g/dL (13.3-17.7); LYMPHOCYTES # (AUTO) 0.9 10^3/uL (1.0-4.0); LYMPHOCYTES % (AUTO) 10 % (12-44); MEAN CORPUSCULAR HEMOGLOBIN 26 pg (25-34); MEAN CORPUSCULAR HGB CONC 31 g/dL (32-36); MEAN CORPUSCULAR VOLUME 85 fL (80-99); MEAN PLATELET VOLUME 8.4 fL (9.0-12.2); MONOCYTES # (AUTO) 1.6 10^3/uL (0.0-1.0); MONOCYTES % (AUTO) 16 % (0-12); NEUTROPHILS # (AUTO) 6.9 10^3/uL (1.8-7.8); NEUTROPHILS % (AUTO) 72 % (42-75); PLATELET COUNT 379 10^3/uL (130-400); WHITE BLOOD COUNT 9.7 10^3/uL (4.3-11.0)
[2021-07-10 06:27] LABS: TOTAL PROTEIN 6.8 GM/DL (6.4-8.2)
[2021-07-10 06:29] LABS: BILIRUBIN,TOTAL 0.3 MG/DL (0.1-1.0)
[2021-07-10 06:31] LABS: CREATININE SERUM 0.92 MG/DL (0.60-1.30)
[2021-07-10] MEDS ORDERED: KCL 10 MEQ TAB (MICRO K) PO SCH (07:00)
[2021-07-10] MEDS ORDERED: KCL 20 MEQ TAB (K-DUR) PO SCH (07:00)
--- NOTE | 2021-07-10 07:30 | Consultation - Surgery ---
LYLEBRENDA Nubia 07/10/21 0730: History of Present Illness History of Present Illness Patient Consulted On(mesfin/time) 07/10/21 07:25 Date Seen by Provider: Jul 10, 2021 Time Seen by Provider: 06:50 History of Present Illness Mr. Fernandez is a 50 year old male who presented to inpatient rehab s/p surgical complications and a complicated recovery from rectal adenocarcinoma. General surgery was consulted. Patient was unarousable and unable to answer questions. Remainder of HPI per medicine bridge note: Jim is a 50 yo M with extensive past medical and past surgical histories, who has been admitted to the acute rehab unit. Past medical history significant for rectal adenocarcinoma. This was found via colonoscopy performed by Dr. Galvez in August of 2020. He underwent a exploratory laparotomy with DLI at [facility] on 02/08/21. This surgery was complicated by L ureteral injury, requiring a L nephrostomy tube. He was then treated with both chemotherapy and radiation, here in [place], [place]. Pt went for ileostomy takedown and ureteroneocystostomy at [facility] on 06/19/21. states that this was further complicated by lung puncture resulting in L lung collapse and development of pneumonia. She further endorses the development of sepsis from infection of the stoma, and that two abscesses were also present. On 07/03/21 pt had stent placed for R ureteral stone. At that time, his urine culture was positive for proteus over 100,000, subsequently treated with ampicillin and fluconazole. Today, Jim is unable to perform most ADL's without assistance. He also endorses being weak when trying to move around. He states that this is mainly from the extreme fatigue that he has. Pt has also had significant weight loss. Pt is not having issues with bowel movements at this time. Allergies and Home Medications Allergies Coded Allergies: Penicillins (Verified Allergy, Unknown, RASH, 07/09/21) Per [facility] records (07/09/21) has tolerated amoxicillin and piperacillin/tazobactam. Patient Home Medication List Acetaminophen (Tylenol) 325 Mg Tablet, 650 MG PO Q4H PRN for PAIN-MILD (1-4), (Reported) Entered as Reported by: ANDRZEJ HERNANDEZ on 07/09/21 1257 Last Action: Held Amoxicillin/Potassium Clav (Amox Tr-K Clv 500-125 mg Tab) 1 Each Tablet, 1 EACH PO BID, (Reported) Entered as Reported by: ANDRZEJ HERNANDEZ on 07/09/21 1244 Last Action: Continued Apixaban (Eliquis) 5 Mg Tablet, 5 MG PO BID, (Reported) Entered as Reported by: ANDRZEJ HERNANDEZ on 07/09/21 1247 Last Action: Continued Arginine (Arginine) 500 Mg Tablet, 500 MG PO DAILY, (Reported) Entered as Reported by: ANDRZEJ HERNANDEZ on 07/09/21 1259 Last Action: Converted Brimonidine Tartrate (Alphagan P) 5 Ml Drops, 1 DROP OS BID, (Reported) Entered as Reported by: ANDRZEJ HERNANDEZ on 07/09/21 1300 Last Action: Converted Cyanocobalamin (Vitamin B-12) (Vitamin B-12) 500 Mcg Tablet, 1,000 MCG PO DAILY, (Reported) Entered as Reported by: ANDRZEJ HERNANDEZ on 07/09/21 130 Last Action: Converted Diphenoxylate HCl/Atropine (Lomotil 2.5-0.025 mg Tablet) 1 Each Tablet, 1 EACH PO Q12H PRN for DIARRHEA, (Reported) Entered as Reported by: ANDRZEJ HERNANDEZ on 07/09/21 1303 Last Action: Continued Docusate Sodium (Docusate Sodium) 100 Mg Capsule, 100 MG PO BID, (Reported) Entered as Reported by: ANDRZEJ HERNANDEZ on 07/09/21 130 Last Action: Continued Duloxetine HCl (Duloxetine HCl) 60 Mg Capsule.dr, 60 MG PO DAILY, (Reported) Entered as Reported by: ANDRZEJ HERNANDEZ on 07/09/21 130 Last Action: Converted Duloxetine HCl (Duloxetine HCl) 30 Mg Capsule.dr, 30 MG PO DAILY, (Reported) Entered as Reported by: ANDRZEJ HERNANDEZ on 07/09/21 130 Last Action: Continued Famotidine (Acid Candy Supervisor (FAMOTIDINE)) 20 Mg Tablet, 20 MG PO BID, (Reported) Entered as Reported by: ANDRZEJ HERNANDEZ on 07/09/21 130 Last Action: Continued Ferrous Sulfate (Ferrous Sulfate) 325 Mg Tablet, 325 MG PO DAILY, (Reported) Entered as Reported by: ANDRZEJ HERNANDEZ on 07/09/21 130 Last Action: Continued Fluconazole (Fluconazole) 150 Mg Tablet, 150 MG PO DAILY, (Reported) Entered as Reported by: ANDRZEJ HERNANDEZ on 07/09/21 1247 Last Action: Continued Glucagon HCl (Glucagon Emergency Kit) 1 Mg Vial, 1 MG IJ ONCE PRN for HYPOGLYCEMIA, (Reported) Entered as Reported by: ANDRZEJ HERNANDEZ on 07/09/211309 Last Action: Held Hyoscyamine Sulfate (Hyoscyamine Sulfate) 0.125 Mg Tab.rapdis, 0.125 MG PO Q4H PRN for CRAMPS, (Reported) Entered as Reported by: ANDRZEJ HERNANDEZ on 07/09/21 125 Last Action: Converted Latanoprost (Xalatan) 2.5 Ml Drops, 1 DROP OS HS, (Reported) Entered as Reported by: ANDRZEJ HERNANDEZ on 07/09/21 1341 Last Action: Continued Methocarbamol (Methocarbamol) 750 Mg Tablet, 750 MG PO BID PRN for SPASMS, (Reported) Entered as Reported by: ANDRZEJ HERNANDEZ on 07/09/21 125 Last Action: Continued Oxcarbazepine (Oxcarbazepine) 300 Mg Tablet, 900 MG PO DAILY, (Reported) Entered as Reported by: ANDRZEJ HERNANDEZ on 07/09/211311 Last Action: Continued Oxybutynin Chloride (Oxybutynin Chloride ER) 10 Mg Tab.er.24, 10 MG PO DAILY, (Reported) Entered as Reported by: ANDRZEJ HERNANDEZ on 07/09/211253 Last Action: Converted Polyethylene Glycol 3350 (Polyethylene Glycol 3350) 17 Gm Powd.pack, 17 GM PO DAILY PRN for CONSTIPATION-2ND LINE, (Reported) Entered as Reported by: ANDRZEJ HERNANDEZ on 07/09/21 131 Last Action: Continued Potassium Chloride (Potassium Chloride) 10 Meq Tab.er.prt, 10 MEQ PO DAILY, (Reported) Entered as Reported by: ANDRZEJ HERNANDEZ on 07/09/21 131 Last Action: Converted Sodium Bicarbonate (Sodium Bicarbonate) 650 Mg Tablet, 650 MG PO TID, (Reported) Entered as Reported by: ANDRZEJ HERNANDEZ on 07/09/211315 Last Action: Continued Tamsulosin HCl (Flomax) 0.4 Mg Cap, 0.4 MG PO DAILY, (Reported) Entered as Reported by: ANDRZEJ HERNANDEZ on 07/09/21 125 Last Action: Continued Timolol Maleate (Timolol Maleate 0.5%) 5 Ml Drops, 1 DROP OS BID, (Reported) Entered as Reported by: ANDRZEJ HERNANDEZ on 07/09/21 1316 Last Action: Continued Tramadol HCl (Tramadol HCl) 50 Mg Tablet, 50 MG PO Q8H PRN for PAIN-MODERATE (5- 7), (Reported) Entered as Reported by: ANDRZEJ HERNANDEZ on 07/09/21 1255 Last Action: Continued Trazodone HCl (Trazodone HCl) 50 Mg Tablet, 50 MG PO HS, (Reported) Entered as Reported by: ANDRZEJ HERNANDEZ on 07/09/21 1317 Last Action: Continued Vitamin E Mixed (Vitamin E) 400 Unit Capsule, 400 UNIT PO DAILY, (Reported) Entered as Reported by: ANDRZEJ HERNANDEZ on 07/09/21 1318 Last Action: Converted Discontinued Medications Latanoprost/Pf (Latanoprost 0.005% Eye Drop) 7.5 Ml Drops, 1 DROP OS HS, (Reported) Discontinued Reason: Prescription changed Entered as Reported by: ANDRZEJ HERNANDEZ on 07/09/21 131 Last Action: Reviewed Past Vdriyro-Imqimd-Plthwr Hx Patient Social History Drug of Choice: DENIES Smoking Status: Former Smoker Type Used: Cigarettes 2nd Hand Smoke Exposure: No Recent Hopitalizations: Yes Alcohol Use?: No Have you traveled recently?: No Immunizations Up To Date Date of Pneumonia Vaccine: Dec 29, 2016 Date of Influenza Vaccine: Jan 03, 2020 Seasonal Allergies Seasonal Allergies: No Surgeries History of Surgeries: Yes (KIDNEY SX CHILD;CATARACT SURGERY;YAG CAPSULOTOMY;COLONOSCOPY/POLYPECTOMY) Surgeries: Abdominal, Eye Surgery, Renal Respiratory History of Respiratory Disorde: No Cardiovascular History of Cardiac Disorders: Yes Cardiac Disorders: Hypertension Neurological History of Neurological Disord: Yes (PSYCH PROBLEMS) Neurological Disorders: Developmental Disorder Genitourinary History of Genitourinary Disor: Yes (KIDNEY SURGERY CHILD) Genitourinary Disorders: Kidney Stones Gastrointestinal History of Gastrointestinal Di: Yes (COLONOSCOPY/POLYPECTOMY 201;D2021 COLON CANCER ) Gastrointestinal Disorders: Polyps Musculoskeletal History of Musculoskeletal Dis: No Endocrine History of Endocrine Disorders: Yes (OBESITY) HEENT History of HEENT Disorders: Yes (CATARACT SURGERY; YAG CAPSULOTOMY) HEENT Disorders: Cataract, Glaucoma Cancer History of Cancer: Yes (RECTAL) Cancer: Colon Psychosocial History of Psychiatric Problem: Yes (DEVELOPMENTAL DISABILITY) Behavioral Health Disorders: ADD/ADHD, Anxiety, Bipolar, Personality Disorder, Depression Integumentary History of Skin or Integumenta: No Blood Transfusions History of Blood Disorders: No Family Medical History Significant Family History: Heart Disease, Cancer (Lung), Diabetes Review of Systems-General ROS-Unable to Obtain: Unable to obtain ROS d/t patient status Physical Exam-General Problems Physical Exam Vital Signs Vital Signs - First Documented 07/09/21 13:40 Temp 37.1 Pulse 115 Resp 18 B/P (MAP) 131/85 (100) Pulse Ox 96 O2 Delivery Room Air Capillary Refill : General Appearance: WD/WN HEENT: No scleral icterus (R), No scleral icterus (L) Respiratory: chest non-tender, lungs clear, normal breath sounds, no respiratory distress, no accessory muscle use Cardiovascular: normal peripheral pulses, regular rate, rhythm, no murmur Peripheral Pulses: 2+ Radial Pulses (R), 2+ Radial Pulses (L) Gastrointestinal: normal bowel sounds Neurologic/Psychiatric: No alert (Patient would open eyes to his name but would immediately return to sleep) Skin: normal color, warm/dry Data Review Labs Laboratory Tests 07/10/21 06:00: White Blood Count 9.7, Red Blood Count 2.87L, Hemoglobin 7.5L, Hematocrit 24L, Mean Corpuscular Volume 85, Mean Corpuscular Hemoglobin 26, Mean Corpuscular Hemoglobin Concent 31L, Red Cell Distribution Width 17.6H, Platelet Count 379, Mean Platelet Volume 8.4L, Immature Granulocyte % (Auto) 1, Neutrophils (%) (Auto) 72, Lymphocytes (%) (Auto) 10L, Monocytes (%) (Auto) 16H, Eosinophils (%) (Auto) 2, Basophils (%) (Auto) 0, Neutrophils # (Auto) 6.9, Lymphocytes # (Auto) 0.9L, Monocytes # (Auto) 1.6H, Eosinophils # (Auto) 0.2, Basophils # (Auto) 0.0, Immature Granulocyte # (Auto) 0.1, Sodium Level 137, Potassium Level 3.4L, Chloride Level 100, Carbon Dioxide Level 22, Anion Gap 15H, Blood Urea Nitrogen 10, Creatinine 0.92, Estimat Glomerular Filtration Rate 102, BUN/Creatinine Ratio 11, Glucose Level 116H, Calcium Level 9.0, Corrected Calcium 9.7, Total Bilirubin 0.3, Aspartate Amino Transf (AST/SGOT) 16, Alanine Aminotransferase (ALT/SGPT) 22, Alkaline Phosphatase 62, Total Protein 6.8, Albumin 3.1L Assessment/Plan Assessment/Plan Assessment/Plan Assessment: h/o rectal adenocarcinoma - extensive surgical history Diminished ability of ADL's Decreased upper and lower extremity strength Anemia Hematuria Plan: Admit to the inpatient rehab unit. Manage with medical services Restart home medications PT/OT evaluations Social work evaluation Monitor anemia. Trend Hgb. ISSA GALVEZ DO 07/10/21 1846: History of Present Illness History of Present Illness History of Present Illness Patient is a 50-year-old male with history of rectal adenocarcinoma with low a nterior resection with diverting loop ileostomy and ileostomy takedown. Complications from ureteral injury on the left. Patient has had ileostomy reversal. He states this was complicated by abscess and has an open wound that is being packed on the right upper quadrant of his abdomen. Patient states that he is weak. He does have some fever from time to time. Patient not having any cough or shortness of breath at this time. Patient denies any nausea vomiting fever sweats chills shortness of breath or chest pain at this time Allergies and Home Medications Allergies Coded Allergies: Penicillins (Verified Allergy, Unknown, RASH, 07/09/21) Per [facility] records (07/09/21) has tolerated amoxicillin and piperacillin/tazobactam. Patient Home Medication List Home Medication List Reviewed: Yes Acetaminophen (Tylenol) 325 Mg Tablet, 650 MG PO Q4H PRN for PAIN-MILD (1-4), (Reported) Entered as Reported by: ANDRZEJ HERNANDEZ on 07/09/21 1257 Last Action: Held Amoxicillin/Potassium Clav (Amox Tr-K Clv 500-125 mg Tab) 1 Each Tablet, 1 EACH PO BID, (Reported) Entered as Reported by: ANDRZEJ HERNANDEZ on 07/09/21 1244 Last Action: Continued Apixaban (Eliquis) 5 Mg Tablet, 5 MG PO BID, (Reported) Entered as Reported by: ANDRZEJ HERNANDEZ on 07/09/21 1247 Last Action: Continued Arginine (Arginine) 500 Mg Tablet, 500 MG PO DAILY, (Reported) Entered as Reported by: ANDRZEJ HERNANDEZ on 07/09/21 1259 Last Action: Converted Brimonidine Tartrate (Alphagan P) 5 Ml Drops, 1 DROP OS BID, (Reported) Entered as Reported by: ANDRZEJ HERNANDEZ on 07/09/21 1300 Last Action: Converted Cyanocobalamin (Vitamin B-12) (Vitamin B-12) 500 Mcg Tablet, 1,000 MCG PO DAILY, (Reported) Entered as Reported by: ANDRZEJ HERNANDEZ on 07/09/21 1302 Last Action: Converted Diphenoxylate HCl/Atropine (Lomotil 2.5-0.025 mg Tablet) 1 Each Tablet, 1 EACH PO Q12H PRN for DIARRHEA, (Reported) Entered as Reported by: ANDRZEJ HERNANDEZ on 07/09/21 1303 Last Action: Continued Docusate Sodium (Docusate Sodium) 100 Mg Capsule, 100 MG PO BID, (Reported) Entered as Reported by: ANDRZEJ HERNANDEZ on 07/09/21 130 Last Action: Continued Duloxetine HCl (Duloxetine HCl) 60 Mg Capsule.dr, 60 MG PO DAILY, (Reported) Entered as Reported by: ANDRZEJ HERNANDEZ on 07/09/21 130 Last Action: Converted Duloxetine HCl (Duloxetine HCl) 30 Mg Capsule.dr, 30 MG PO DAILY, (Reported) Entered as Reported by: ANDRZEJ HERNANDEZ on 07/09/21 130 Last Action: Continued Famotidine (Acid Candy Supervisor (FAMOTIDINE)) 20 Mg Tablet, 20 MG PO BID, (Reported) Entered as Reported by: ANDRZEJ HERNANDEZ on 07/09/21 130 Last Action: Continued Ferrous Sulfate (Ferrous Sulfate) 325 Mg Tablet, 325 MG PO DAILY, (Reported) Entered as Reported by: ANDRZEJ HERNANDEZ on 07/09/21 130 Last Action: Continued Fluconazole (Fluconazole) 150 Mg Tablet, 150 MG PO DAILY, (Reported) Entered as Reported by: ANDRZEJ HERNANDEZ on 07/09/21 1247 Last Action: Continued Glucagon HCl (Glucagon Emergency Kit) 1 Mg Vial, 1 MG IJ ONCE PRN for HYPOGLYCEMIA, (Reported) Entered as Reported by: ANDRZEJ HERNANDEZ on 07/09/21 131 Last Action: Held Hyoscyamine Sulfate (Hyoscyamine Sulfate) 0.125 Mg Tab.rapdis, 0.125 MG PO Q4H PRN for CRAMPS, (Reported) Entered as Reported by: ANDRZEJ HERNANDEZ on 07/09/21 1250 Last Action: Converted Latanoprost (Xalatan) 2.5 Ml Drops, 1 DROP OS HS, (Reported) Entered as Reported by: ANDRZEJ HERNANDEZ on 07/09/21 1341 Last Action: Continued Methocarbamol (Methocarbamol) 750 Mg Tablet, 750 MG PO BID PRN for SPASMS, (Reported) Entered as Reported by: ANDRZEJ HERNANDEZ on 07/09/21 125 Last Action: Continued Oxcarbazepine (Oxcarbazepine) 300 Mg Tablet, 900 MG PO DAILY, (Reported) Entered as Reported by: ANDRZEJ HERNANDEZ on 07/09/211311 Last Action: Continued Oxybutynin Chloride (Oxybutynin Chloride ER) 10 Mg Tab.er.24, 10 MG PO DAILY, (Reported) Entered as Reported by: ANDRZEJ HERNANDEZ on 07/09/211253 Last Action: Converted Polyethylene Glycol 3350 (Polyethylene Glycol 3350) 17 Gm Powd.pack, 17 GM PO DAILY PRN for CONSTIPATION-2ND LINE, (Reported) Entered as Reported by: ANDRZEJ HERNANDEZ on 07/09/21 131 Last Action: Continued Potassium Chloride (Potassium Chloride) 10 Meq Tab.er.prt, 10 MEQ PO DAILY, (Reported) Entered as Reported by: ANDRZEJ HERNANDEZ on 07/09/211314 Last Action: Converted Sodium Bicarbonate (Sodium Bicarbonate) 650 Mg Tablet, 650 MG PO TID, (Reported) Entered as Reported by: ANDRZEJ HERNANDEZ on 07/09/211315 Last Action: Continued Tamsulosin HCl (Flomax) 0.4 Mg Cap, 0.4 MG PO DAILY, (Reported) Entered as Reported by: ANDRZEJ HERNANDEZ on 07/09/211253 Last Action: Continued Timolol Maleate (Timolol Maleate 0.5%) 5 Ml Drops, 1 DROP OS BID, (Reported) Entered as Reported by: ANDRZEJ HERNANDEZ on 07/09/21 131 Last Action: Continued Tramadol HCl (Tramadol HCl) 50 Mg Tablet, 50 MG PO Q8H PRN for PAIN-MODERATE (5- 7), (Reported) Entered as Reported by: ANDRZEJ HERNANDEZ on 07/09/21 125 Last Action: Continued Trazodone HCl (Trazodone HCl) 50 Mg Tablet, 50 MG PO HS, (Reported) Entered as Reported by: ANDRZEJ HERNANDEZ on 07/09/211316 Last Action: Continued Vitamin E Mixed (Vitamin E) 400 Unit Capsule, 400 UNIT PO DAILY, (Reported) Entered as Reported by: ANDRZEJ HERNANDEZ on 07/09/211317 Last Action: Converted Discontinued Medications Latanoprost/Pf (Latanoprost 0.005% Eye Drop) 7.5 Ml Drops, 1 DROP OS HS, (Reported) Discontinued Reason: Prescription changed Entered as Reported by: ANDRZEJ HERNANDEZ on 07/09/211310 Last Action: Reviewed Past Omamdrs-Hccirc-Cmjnsc Hx Reviewed Nursing Assessment Reviewed/Agree w Nursing PMH: Yes Family Medical History Significant Family History: No Pertinent Family Hx Review of Systems-General Constitutional: No chills; fever, weakness EENTM: No blurred vision, No double vision Respiratory: No cough, No dyspnea on exertion Cardiovascular: No chest pain, No palpitations Gastrointestinal: No abdominal pain; nausea, vomiting Genitourinary: decreased output, discharge Musculoskeletal: No back pain, No joint pain Skin: No change in color Psychiatric/Neurological: Denies Anxiety, Denies Depressed, Denies Emotional Problems All Other Systems Reviewed Negative Unless Noted: Yes (Negative excepted noted.) Physical Exam-General Problems Physical Exam General Appearance: WD/WN, obese HEENT: normal ENT inspection, TMs normal Neck: non-tender, supple Respiratory: chest non-tender, no respiratory distress, no accessory muscle use Cardiovascular: regular rate, rhythm, no JVD Gastrointestinal: non tender, soft, other (Open wound right upper quadrant packed with iodoform) Rectal: deferred Genital/Rectal: normal genital exam Back: normal inspection, no CVA tenderness Extremities: normal range of motion, normal inspection Neurologic/Psychiatric: alert, oriented x 3 Skin: normal color, warm/dry Lymphatic: no adenopathy Assessment/Plan Assessment/Plan Assessment/Plan h/o rectal adenocarcinoma - extensive surgical history Diminished ability of ADL's Decreased upper and lower extremity strength Anemia Hematuria Open wound right upper abdomen - continue bid and prn dressing changes till healed in. Restart home medications PT/OT evaluations Social work evaluation Monitor anemia. Trend Hgb. Supervisory-Addendum Brief Verification & Attestation Participated in pt care: history, MDM, physical Personally performed: exam, history, MDM, supervision of care Care discussed with: Medical Student Procedures: n/a Results interpretation: Verified all documentation Verification and Attestation of Medical Student E/M Service A medical student performed and documented this service in my presence. I revie wed and verified all information documented by the medical student and made modifications to such information, when appropriate. I personally performed the physical exam and medical decision making. Issa Galvez, Jul 10, 2021,18:46 BRENDA LYLE Jul 10, 2021 07:30 ISSA GALVEZ DO Jul 10, 2021 18:46
[2021-07-10 08:00] VITALS: BP 122/67
[2021-07-10] MEDS: DULoxetine 30 MG (CYMBALTA) CAP PO SCH (08:38)
[2021-07-10] MEDS: VITAMIN E 180 MG (400 UNITS) CAP PO SCH (08:38)
[2021-07-10] MEDS: FERROUS SULF 325 MG (IRON) TAB PO SCH (08:38)
[2021-07-10] MEDS: TAMSULOSIN 0.4 MG (FLOMAX) CAP PO SCH (08:39)
[2021-07-10] MEDS: OXcarbazepine (TRILEPTAL) 300 MG TAB PO SCH (08:39)
[2021-07-10] MEDS: FAMOTIDINE 20 MG (PEPCID) TABLET PO SCH ×2 (08:39→21:14)
[2021-07-10] MEDS: SODIUM BICARBONATE 650 MG TABLET PO SCH ×3 (08:39→21:14)
[2021-07-10] MEDS: APIXABAN 5 MG (ELIQUIS) TABLET PO SCH ×2 (08:39→21:14)
[2021-07-10] MEDS: OXYBUTYNIN (DITROPAN) 5 MG TAB PO SCH ×2 (08:39→21:14)
[2021-07-10] MEDS: DOCUSATE SODIUM 100 MG (COLACE) CAP PO SCH ×2 (08:42→20:03)
[2021-07-10] MEDS: polyethylene glycoL POWDER 17 GM (MIRALAX) PACK PO SCH ×2 (08:42→20:04)
[2021-07-10] MEDS: SENNA W/DOCUSATE (SENOKOT S) TABLET PO SCH ×2 (08:42→20:04)
[2021-07-10] MEDS ORDERED: NON-FORMULARY MEDICATION 1 EA EA (Cyanocobalamin (Vitamin B-12) (Vitamin B-12) 1,000 MCG) PO SCH (09:00)
[2021-07-10] MEDS ORDERED: NON-FORMULARY MEDICATION 1 EA EA (Vitamin E Mixed (Vitamin E) 400 UNIT) PO SCH (09:00)
[2021-07-10] MEDS ORDERED: ARGININE 500 MG PO SCH (09:00)
[2021-07-10] MEDS ORDERED: NON-FORMULARY MEDICATION 1 EA EA (Duloxetine HCl 60 MG) PO SCH (09:00)
[2021-07-10] MEDS ORDERED: FLUCONAZOLE 150 MG TABLET (ED ONLY) PO SCH (09:00)
[2021-07-10] MEDS ORDERED: NON-FORMULARY MEDICATION 1 EA EA (Oxybutynin Chloride (Oxybutynin Chloride ER) 10 MG) PO SCH (09:00)
[2021-07-10] MEDS ORDERED: NON-FORMULARY MEDICATION 1 EA EA (Potassium Chloride 10 MEQ) PO SCH (09:00)
[2021-07-10] MEDS: AUGMENTIN 500 MG TAB (AMOXICILLIN/CLAVULANATE) PO SCH ×2 (09:15→21:14)
[2021-07-10] MEDS: TIMOLOL MALEATE 0.5% 5 ML (TIMOPTIC) BTL OS SCH ×2 (09:16→21:15)
[2021-07-10] MEDS: BRIMONIDINE 0.2% (ALPHAGAN) OPHTH SOLN 5 ML BTL OS SCH ×2 (09:16→21:15)
--- NOTE | 2021-07-10 10:33 | ST Cognitive Linguistic Eval ---
Speech Evaluation-General Medical Diagnosis s/p EX LAP, DLI Takedown, L ureteroneocystostomy Onset Date: Jun 19, 2021 Therapy Diagnosis Therapy Diagnosis: Impaired Cognitive Linguistic Skills Precautions Precautions: Fall Precautions/Isolations: Fall Prevention, Standard Precautions Referral Referring Physician: Dr. Tierra Wright Reason for Referral: Evaluation/Treatment Medical History Pertinent Medical History: DM, GERD, HTN Current History The patient is a 50 year old male with a past medical history of rectal adenocarcinoma, DM2, GERD, hypertension, glaucoma, bilateral cataracts, DVT, anxiety, depression, bipolar disorder, urosepsis, and nephrolithiasis, who presented to acute rehabilitation following chemotherapy and radiation as well as an ileostomy takedown and ureteroneocystostomy. Per patient's , the patient has an intellectual deficit at baseline. Reviewed History: Yes Social History Current Living Status: Spouse Speech PLF-Current Status Prior Level of Function Due to information located in the chart, the clinician visited with the patient's regarding prior level of function. Per patient's , the patient struggles with memory but feels "yeah, it may be a little worse." Subjective The patient was lying in bed, asleep upon entrance to his room by the clinician. With maximum, consistent verbal prompting, the patient woke and greeted the clinician appropriately. The patient was hesitant, yet agreeable to participation in the cognitive linguistic assessment. Language Eval: Auditory Comprehends Simple Yes/No Ques: Functional Indent/Objects Multiple Beck: Functional Ident/Pics in Multiple Beck: Functional Follows 1-Step Commands: Functional Follows General Conversations: Moderate Language Eval: Verbal Language Completes Spontaneous Greeting: Functional Produces Auto, Serial Info: Functional Imitates Simple Words/Phrases: Functional Word Finding: Moderate Requests Basic Needs: Functional States Basic Personal Info: Functional Language Evaluation: Reading Per patient's , the patient "reads and writes at a third grade level." Cognitive Patient Orientation The patient was oriented to month and year. The patient stated the day of the week was "Friday." Objective Cognitive Domain Attention: Moderate Memory: Moderate Problem Solving: Moderate Executive Functions: Moderate Objective Formal/Standardized Tests [facility] Mental Status Exam (UMS) Results The patient demonstrated a result of +8/30 on the SLUMS correlating to a score of "dementia." Oral Motor/Speech Production The patient does not display dysarthria or apraxia of speech at this time. The patient remains 100% intelligible in known and unknown contexts. Impression The patient demonstrates a moderate cognitive linguistic impairment in the areas of memory, problem solving, attention, and executive functioning. Speech Patient Assess Expression of Ideas/Wants: Exhibits (3) Understanding Verbal Content: Usually Understands (3) Brief Interview-Mental Status: Yes Repetition of Three Words: Three (3) Temporal Orientation: Year: Correct (3) Temporal Orientation: Month: Accurate within 5 days(2) Temporal Orientation: Day: Incorrect or No Answer(0) Recall : Wear to say "Sock": No, could not recall (0) Recall : Color: No, could not recall (0) Recall : Bed: No, could not recall (0) Memory/Recall Ability: That he or she is in a hsp/hsp unit Speech Short Term Goals Short Term Goals Short Term Goals 1. The patient will demonstrate appropriate use of external memory strategies with 90% accuracy and mild clinician verbal cueing. Time Frame-STG: One Week. Speech [facility] Goals Planning Lead Goals 1. The patient will demonstrate increased cognitive linguistic skills for safe discharge to the least restrictive environment. Time Frame: Two Weeks. Speech-Plan Treatment Plan Speech Therapy Treatment Plan: Concurrent Therapy Treatment Duration: Jul 24, 2021 Frequency: Modified Program (IRF) Estimated Hrs Per Day: .5 hour per day Rehab Potential: Fair Pt/Family Agrees to Plan: Yes Safety Risks/Education Teaching Recipient: Patient, Family Teaching Methods: Discussion Response to Teaching: Reinforcement Needed Education Topics Provided: Speech Pathology Plan of Care, Results of SLUMS Time Speech Therapy Time In: 08:15 Speech Therapy Time Out: 08:45 Total Billed Time: 30 Billed Treatment Time 1, CASSIA BARRERA [facility] Jul 10, 2021 10:33
--- NOTE | 2021-07-10 10:49 | Physical Therapy Daily Note ---
PT Daily Note-Current Subjective Patient reports that he had a fever last night, and didn't get much sleep. reported that hemoglobin was down to 7.5 g/dL. Patient seemed a little agitated, but after much encouragement was compliant to start treatment. Patient was transferring out of bed when randomly got agitated. Patient started running to the door with walker dragging behind, and stepping on his catheter. Patient started yelling, but eventually was able to calm down. 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 Pain Location: No Pain Reported Mental Status Patient Orientation: Person, Place, Situation Attachments: [place]ama Catheter Transfers SCALE: Activities may be completed with or without assistive devices. 7-Apumcgtdke-ozzstcz completes the activity by him/herself with no assistance from a helper. 5-Set-up or Clean-up Assistance-helper sets up or cleans up; patient completes activity. [place] assists only prior to or following the activity. 4-Supervision or Touching Assistance-helper provides verbal cues and/or touching/steadying and/or contact guard assistance as patient completes activity. Assistance may be provided throughout the activity or intermittently. 3-Partial/Moderate Assistance-helper does LESS THAN HALF the effort. [place] lifts, holds or supports trunk or limbs, but provides less than half the effort. 2-Substantial/Maximal Assistance-helper does MORE THAN HALF the effort. [place] lifts or holds trunk or limbs and provides more than half the effort. 7-Hfvjmebco-cdxupo does ALL the effort. Patient does none of the effort to complete the activity. Or, the assistance of 2 or more helpers is required for the patient to complete the activity. If activity was not attempted, code reason: 7-Patient Refused. 9-Not Applicable-not attempted and the patient did not perform the activity before the current illness, exacerbation or injury. 10-Not Attempted due to Environmental Limitations-(lack of equipment, weather restraints, etc.). 88-Not Attempted due to Medical Conditions or Safety Concerns. Sit to Lying (QC): 6 Lying to Sitting/Side of Bed(Q: 6 Sit to Stand (QC): 6 Gait Training Does the Patient Walk?: No and Walking Goal NOT indicated Distance: 30', 70', 100' Walk 10 feet (QC): 6 Walk 50 ft with 2 Turns(QC): 6 Gait Assistive Device: FWW semi-wide stance Treatments Ambulation; standing activity - throwing manzo bag into basket 2 x 4 throws; Chair leans (10x each way) forward, backward, side to side (cue to touch basket at the side). Assessment Current Status: Fair Progress Patient demonstrates adequate strength with walking and transfers but has a little unsteadiness with the activities and fatigues quickly. Patient appears to be self limiting with activities due to motivation. Patient was initially very agitated at the beginning of treatment but settled down toward the end. Patient was left in chair with call light, tray , and all needs met. PT Short Term Goals Short Term Goals Time Frame: Jul 16, 2021 Roll Left & Right: 6 Sit to lyin Lying to sitting on side of be: 4 Sit to stand: 4 (SBA) Chair/nwv-nw-ksfoo transfer: 4 (SBA) Toilet transfer: 4 (SBA) Car transfer: 4 (SBA) Walk 10 feet: 4 Walk 50 feet with two turns: 4 1 step (curb): 4 (SBA) 4 steps: 3 Does pt use a wc or scooter: No Type: N/A PT Prison Goals Prison Goals PT Horse Race Timer Goals Time Frame: July 30, 2021 Roll Left & Right (QC): 6 Sit to Lying (QC): 6 Lying-Sitting on Side/Bed(QC): 6 Sit to Stand (QC): 6 Chair/Dfx-fj-Nzzgw Xfer(QC): 6 Toilet Transfer (QC): 6 Car Transfer (QC): 6 Does the Patient Walk: Yes Walk 10 feet (QC): 6 Walk 50ft with 2 Turns (QC): 6 Walk 150 ft (QC): 6 Walking 10ft on Uneven Surface: 6 1 Step (curb) (QC): 6 4 Steps (QC): 6 12 Steps (QC): 9 Picking up an Object (QC): 6 Does the Pt use WC or Scooter?: Yes Wheel 50 feet with 2 turns (QC: 9 Type: Manual Wheel 150 feet: 9 Type: Manual PT Plan Problem List Problem List: Activity Tolerance, Functional Strength, Safety, Balance, Gait, Transfer, Bed Mobility, ROM Treatment/Plan Treatment Plan: Continue Plan of Care Treatment Plan: Bed Mobility, Education, Functional Activity Marco Antonio, Functional Strength, Group Therapy, Gait, Safety, Therapeutic Exercise, Transfers Treatment Duration: July 30, 2021 Frequency: At least 5 of 7 days/Wk (IRF) Estimated Hrs Per Day: 1.5 hours per day Patient and/or Family Agrees t: Yes Safety Risks/Education Patient Education: Gait Training, Transfer Techniques, Safety Issues Teaching Recipient: Patient Teaching Methods: Discussion Response to Teaching: Verbalize Understanding, Reinforcement Needed Discharge Recommendations Plan Continue with functional strengthening to be independent at home. Time/GCodes Time In: 929 Time Out: 104 Total Billed Treatment Time: 75 Total Billed Treatment 1 visit FA x 5 75min co treated with OT from 45 to 1045 NU VANN PT Jul 10, 2021 10:49
--- NOTE | 2021-07-10 11:04 | Occupational Ther Daily Note ---
OT Current Status-Daily Note Subjective Pt yelling at PT staff at OT arrival. Extra time to deescalate situation and calm patient. Co-treat with PT for part of session ([id number]) due to need of 2 skilled clinicians to progress indep and safety with adls and mobility. Appearance Pt left sitting in recliner, all needs within reach at end of session. ADL-Treatment Therapy Code Descriptions/Definitions Functional [place] Measure: 0=Not Assessed/NA 4=Minimal Assistance 1=Total Assistance 5=Supervision or Setup 2=Maximal Assistance 6=Modified [place] 3=Moderate Assistance 7=Complete IndependenceSCALE: Activities may be completed with or without assistive devices. 2-Yemjcvhjtq-fdtubhd completes the activity by him/herself with no assistance from a helper. 5-Set-up or Clean-up Assistance-helper sets up or cleans up; patient completes activity. [place] assists only prior to or following the activity. 4-Supervision or Touching Assistance-helper provides verbal cues and/or touching/steadying and/or contact guard assistance as patient completes activity. Assistance may be provided throughout the activity or intermittently. 3-Partial/Moderate Assistance-helper does LESS THAN HALF the effort. [place] lifts, holds or supports trunk or limbs, but provides less than half the effort. 2-Substantial/Maximal Assistance-helper does MORE THAN HALF the effort. [place] lifts or holds trunk or limbs and provides more than half the effort. 3-Qelsakgxc-qndegm does ALL the effort. Patient does none of the effort to complete the activity. Or, the assistance of 2 or more helpers is required for the patient to complete the activity. If activity was not attempted, code reason: 7-Patient Refused. 9-Not Applicable-not attempted and the patient did not perform the activity before the current illness, exacerbation or injury. 10-Not Attempted due to Environmental Limitations-(lack of equipment, weather restraints, etc.). 88-Not Attempted due to Medical Conditions or Safety Concerns. Oral Hygiene (QC): 3 Toilet Transfer (QC): 1 Other Treatment Significant time spent calming patient. Poor insight into rehab expectations. Education provided. Pt is very self limiting, requires extra time and encouragement to initiate all activities. Pt stood x2 for manzo bag toss. Bags placed slightly out of YAMILETH to encourage functional reaching and to promote increased dynamic balance. Slight unsteadiness but no significant LOB. Close sba-CGA throughout. Pt then performed seated core exercises including modified crunch and lateral side bend 10x2 each. Pt ambulated to/from gym with Close SBA- CGA and use of walker. Speedy gait, pt moaning throughout gait. Cues for safety, poor follow through. Education OT Patient Education: Correct positioning, Energy conservation, Modified ADL techniques, Progress toward Goal/Update tx plan, Purpose of tx/functional activities, Reviewed precautions, Rehab process, Safety issues, Transfer techniques Teaching Recipient: Patient Teaching Methods: Demonstration, Discussion Response to Teaching: Verbalize Understanding, Reinforcement Needed OT Short Term Goals Short Term Goals Time Frame: Jul 20, 2021 Shower/bathe self: 3 Putting on/taking off footwear: 3 OT Humanities Department Chair Goals Humanities Department Chair Goals Time Frame: August 03, 2021 Eating (QC): 6 Oral Hygiene (QC): 6 Toileting Hygiene (QC): 4 Shower/Bathe Self (QC): 4 Upper Body Dressing (QC): 5 Lower Body Dressing (QC): 5 On/Off Footwear (QC): 5 Additional Goals: 1-Demonstrate ADL Tasks, 2-Verbalize Understanding, 3- ImproveStrength/Marco Antonio 1=Demonstrate adherence to instructed precautions during ADL tasks. 2=Patient will verbalize/demonstrate understanding of assistive devices/modifications for ADL. 3=Patient will improve strength/tolerance for activity to enable patient to perform ADL's. OT Education/Plan Problem List/Assessment Assessment: Decreased Activ Tolerance, Decreased Safety Aware, Decreased UE Strength, Impaired Cognition, Impaired Funct Balance, Impaired Self-Care Skills Discharge Recommendations Plan/Recommendations: Continue POC Treatment Plan/Plan of Care Treatment,Training & Education: Yes Patient would benefit from OT for education, treatment and training to promote independence in ADL's, mobility, safety and/or upper extremity function for ADL's. Plan of Care: ADL Retraining, Functional Mobility, Group Exercise/Act as Ind, UE Funct Exercise/Act Treatment Duration: August 03, 2021 Frequency: At least 5 of 7 days/Wk (IRF) Estimated Hrs Per Day: .25 hour per day Agreement: Yes Rehab Potential: Fair Time/GCodes Start Time: 09:45 Stop Time: 11:00 Total Time Billed (hr/min): 75 Billed Treatment Time 1 visit ADL (15 min) FA x2 (30 min) EX x2 (30 min Beverly Santos OT Jul 10, 2021 11:04
[2021-07-10] MEDS: KCL 20 MEQ TAB (K-DUR) PO SCH ×2 (12:36→17:38)
[2021-07-10 20:42] VITALS: BP 136/69
[2021-07-10] MEDS: LATANOPROST 0.005% (XALATAN) OPHTH SOLN 2.5 ML OS SCH (21:13)
[2021-07-10] MEDS: traZODone 50 MG (DESYREL) TAB PO SCH (21:14)
--- NOTE | 2021-07-11 06:06 | PM&R Progress Note ---
Subjective HPI/CC On Admission Date Seen by Provider: Jul 11, 2021 Time Seen by Provider: 09:00 Subjective/Events-last exam 07/11/2021: Patient doing pretty well 2 small bowel movements today and refused laxatives Leg bag will be initiated for Lama Low-grade fever and Dr. Eaton will monitor only IV iron initiated 07/10/2021: Patient settling in well Worked with PT today No pain is reported until he moves He was able to eat a bit Profound weight loss since diagnosis August 2020 Labs reviewed Checking iron level Review of Systems General: Fatigue, Malaise Objective Exam Vital Signs Vital Signs Date Time Temp Pulse Resp B/P (MAP) Pulse Ox O2 Delivery O2 Flow Rate FiO2 07/11/21 20:20 Room Air 07/11/21 20:00 36.9 106 16 119/56 (77) 92 Capillary Refill : General Appearance: No Apparent Distress, WD/WN, Chronically ill, Obese HEENT: PERRL/EOMI, Normal ENT Inspection, Pharynx Normal Neck: Full Range of Motion, Normal Inspection, Non Tender, Supple, Carotid Bruit Respiratory: Chest Non Tender, Lungs Clear, Normal Breath Sounds, No Accessory Muscle Use, No Respiratory Distress, Decreased Breath Sounds Cardiovascular: Regular Rate, Rhythm, No Edema, No Gallop, No JVD, No Murmur, Normal Peripheral Pulses Gastrointestinal: Normal Bowel Sounds, No Organomegaly, No Pulsatile Mass, Soft, Tenderness Back: Normal Inspection, No CVA Tenderness, No Vertebral Tenderness Extremity: Normal Capillary Refill, Normal Inspection, Normal Range of Motion, Non Tender, No Calf Tenderness, No Pedal Edema Neurologic/Psychiatric: Alert, Oriented x3, No Motor/Sensory Deficits, Normal Mood/Affect, Depressed Affect Skin: Normal Color, Warm/Dry Lymphatic: No Adenopathy Results/Procedures Lab Patient resulted labs reviewed. FIM Transfers Therapy Code Descriptions/Definitions Functional [place] Measure: 0=Not Assessed/NA 4=Minimal Assistance 1=Total Assistance 5=Supervision or Setup 2=Maximal Assistance 6=Modified [place] 3=Moderate Assistance 7=Complete IndependenceSCALE: Activities may be completed with or without assistive devices. 4-Bakcbbtaav-iqadxjf completes the activity by him/herself with no assistance from a helper. 5-Set-up or Clean-up Assistance-helper sets up or cleans up; patient completes activity. [place] assists only prior to or following the activity. 4-Supervision or Touching Assistance-helper provides verbal cues and/or touching/steadying and/or contact guard assistance as patient completes activity. Assistance may be provided throughout the activity or intermittently. 3-Partial/Moderate Assistance-helper does LESS THAN HALF the effort. [place] lifts, holds or supports trunk or limbs, but provides less than half the effort. 2-Substantial/Maximal Assistance-helper does MORE THAN HALF the effort. [place] lifts or holds trunk or limbs and provides more than half the effort. 4-Nokxtjghb-xckmev does ALL the effort. Patient does none of the effort to complete the activity. Or, the assistance of 2 or more helpers is required for the patient to complete the activity. If activity was not attempted, code reason: 7-Patient Refused. 9-Not Applicable-not attempted and the patient did not perform the activity before the current illness, exacerbation or injury. 10-Not Attempted due to Environmental Limitations-(lack of equipment, weather restraints, etc.). 88-Not Attempted due to Medical Conditions or Safety Concerns. Roll Left to Right (QC): 6 Sit to Lying (QC): 6 Sit to Stand (QC): 6 Chair/Gnz-ob-Fcyys Xfer(QC): 4 (CGA) Car Transfer (QC): 4 (CGA) Gait Training Distance: 30', 70', 100' Walk 10 feet (QC): 6 Walk 50 ft with 2 Turns(QC): 6 Walk 150 ft (QC): 07 Walking 10ft/uneven surface-QC: 4 (CGA) Gait Assistive Device: FWW Wheelchair Training Does the Pt Use a Wheelchair?: No Wheel 50 ft with 2 turns (QC): 1 Wheel 150 ft (QC): 1 Type of Wheelchair: N/A Stair Training #of Steps: 1 1 Step (curb) (QC): 4 4 Steps (QC): 88 12 Steps (QC): 88 Balance Picking up an Object (QC): 4 ADL-Treatment Eating (QC): 5 (Per clinical judgment.) Oral Hygiene (QC): 3 Shower/Bathe Self (QC): 2 (Pt able to wash BUEs, chest/abdomen, required assistance thighs, BLE lower legs/feet, and buttocks.) Upper Body Dressing (QC): 3 (Min A with managing shirt down due to shirt rolling at pt's back) Lower Body Dressing (QC): 3 (Min A with threading RLE into pants. ) On/Off Footwear (QC): 2 (Pt required assistance doffing bilateral socks, pt able to doff shoes, max A with donning gripper socks.) Toileting Hygiene (QC): 3 (Pt requires assistance with hygiene, pt able to manage pant hike.) Toilet Transfer (QC): 1 Assessment/Plan Assessment and Plan Assess & Plan/Chief Complaint Assessment: Critical illness myopathy Rectal carcinoma August 2020 diagnosis status post radiation and chemotherapy Status post ileostomy takedown at Recent left-sided pneumothorax Recent left ureteral injury status post nephrostomy tube Bipolar disorder Intellectual delay Former smoker Hypertension Diabetes GERD Oral anticoagulation History of DVT Plan: Inpatient rehab protocol Pain control Monitor labs Consult Dr. Eaton 07/10/21: Monitor fever Await B12 and iron level Supportive care 07/11/2021: IV iron infusion Supportive care (1) Rectal carcinoma (2) Hypertension (3) Intellectual delay (4) Weight loss (5) Nephrostomy status (6) Status post pneumothorax (7) Left ureteral injury (8) Former smoker (9) Anemia RADHA MCKAY DO Jul 11, 2021 06:06
[2021-07-11] MEDS: CYANOCOBALAMIN 1,000 MCG (VITAMIN B-12) TABLET PO SCH (06:12)
--- NOTE | 2021-07-11 07:09 | Progress Note - Surgery ---
BRENDA LYLE 07/11/21 0709: Subjective Date Seen by a Provider: Jul 11, 2021 Time Seen by a Provider: 06:45 Subjective/Events-last exam Mr. Shannon is being followed for a wound in his RUQ with daily packing requirements. He denies pain, discharge, or redness. He reports it is changed and re-packed multiple times a day. He denies any generalized abdominal pain and has no other complaints. He is working with PT/OT each morning to regain his strength. Review of Systems General: No Chills, No Fatigue Pulmonary: No Dyspnea, No Cough Cardiovascular: No: Chest Pain, Palpitations Gastrointestinal: No: Nausea, Vomiting, Abdominal Pain Genitourinary: Other (Lama) Neurological: No: Weakness, Confusion Objective Exam Vital Signs Date Time Temp Pulse Resp B/P (MAP) Pulse Ox O2 Delivery O2 Flow Rate FiO2 07/10/21 20:42 37.3 104 20 136/69 (91) 98 Room Air 07/10/21 20:30 Room Air 07/10/21 09:19 Room Air 07/10/21 08:00 36.8 99 14 122/67 (85) 91 Room Air I & O 07/11/21 07:00 Intake Total 1400 ml Output Total 2150 ml Balance -750 ml Capillary Refill : General Appearance: No Apparent Distress, WD/WN, Chronically ill, Obese HEENT: PERRL/EOMI Neck: Normal Inspection Respiratory: Chest Non Tender, Lungs Clear, Normal Breath Sounds, No Accessory Muscle Use, No Respiratory Distress Cardiovascular: Regular Rate, Rhythm, No Edema, No Murmur, Normal Peripheral Pulses Peripheral Pulses: 2+ Dorsalis Pedis (R), 2+ Left Dors-Pedis (L), 2+ Radial Pulses (R), 2+ Radial Pulses (L) Gastrointestinal: normal bowel sounds, non tender, soft, other (Open wound right upper quadrant packed with iodoform. Changed multiple times daily) Extremity: Normal Inspection, Non Tender Neurologic/Psychiatric: Alert, Oriented x3, No Motor/Sensory Deficits, Normal Mood/Affect Skin: Normal Color, Warm/Dry Results Lab Laboratory Tests 07/10/21 10:45: Iron Level 31L, Vitamin B12 Level 614 Assessment/Plan Assessment/Plan Assessment/Plan Assessment: h/o rectal adenocarcinoma - extensive surgical history Open wound right upper abdomen - multiple dressing changes per day - no erythema, discharge, or pain Diminished ability of ADL's Decreased upper and lower extremity strength Anemia Hematuria Plan: Restart home medications PT/OT evaluations Social work evaluation Monitor anemia. Trend Hgb. Repack RUQ wound BID or PRN ISSA GALVEZ DO 07/11/21 1731: Subjective Subjective/Events-last exam Doing well. Working with PT. Tolerating diet he states. Tolerating wound care to right upper quadrant. Denies n/v fever sweats chills shortness of breath or chest pain. Objective Exam General Appearance: No Apparent Distress, Chronically ill, Obese HEENT: PERRL/EOMI, Normal ENT Inspection Neck: Normal Inspection, Non Tender Respiratory: Chest Non Tender, No Accessory Muscle Use, No Respiratory Distress Cardiovascular: Regular Rate, Rhythm, No JVD Gastrointestinal: non tender, soft, other (Open wound right upper quadrant no signs of infection) Extremity: Normal Inspection, Non Tender Neurologic/Psychiatric: Alert, Oriented x3, No Motor/Sensory Deficits, Normal Mood/Affect Skin: Normal Color, Warm/Dry Lymphatic: No Adenopathy Assessment/Plan Assessment/Plan Assessment/Plan h/o rectal adenocarcinoma - extensive surgical history Open wound right upper abdomen - iodoform packing bid and prn - no erythema, discharge, or pain Diminished ability of ADL's Decreased upper and lower extremity strength Anemia Hematuria Supervisory-Addendum Brief Verification & Attestation Participated in pt care: history, MDM, physical Personally performed: exam, history, MDM, supervision of care Care discussed with: Medical Student Procedures: n/a Results interpretation: Verified all documentation Verification and Attestation of Medical Student E/M Service A medical student performed and documented this service in my presence. I reviewed and verified all information documented by the medical student and made modifications to such information, when appropriate. I personally performed the physical exam and medical decision making. Issa Galvez, Jul 11, 2021,17:31 BRENDA LYLE Jul 11, 2021 07:09 ISSA GALVEZ DO Jul 11, 2021 17:31
[2021-07-11 07:34] VITALS: BP 146/70
[2021-07-11] MEDS: APIXABAN 5 MG (ELIQUIS) TABLET PO SCH ×2 (08:27→20:13)
[2021-07-11] MEDS: FAMOTIDINE 20 MG (PEPCID) TABLET PO SCH ×2 (08:27→20:13)
[2021-07-11] MEDS: AUGMENTIN 500 MG TAB (AMOXICILLIN/CLAVULANATE) PO SCH ×2 (08:27→20:13)
[2021-07-11] MEDS: VITAMIN E 180 MG (400 UNITS) CAP PO SCH (08:27)
[2021-07-11] MEDS: TAMSULOSIN 0.4 MG (FLOMAX) CAP PO SCH (08:27)
[2021-07-11] MEDS: DULoxetine 30 MG (CYMBALTA) CAP PO SCH (08:27)
[2021-07-11] MEDS: OXcarbazepine (TRILEPTAL) 300 MG TAB PO SCH (08:27)
[2021-07-11] MEDS: OXYBUTYNIN (DITROPAN) 5 MG TAB PO SCH ×2 (08:27→20:13)
[2021-07-11] MEDS: SODIUM BICARBONATE 650 MG TABLET PO SCH ×3 (08:27→20:13)
[2021-07-11] MEDS: FERROUS SULF 325 MG (IRON) TAB PO SCH (08:32)
[2021-07-11] MEDS: KCL 20 MEQ TAB (K-DUR) PO SCH ×3 (08:32→18:19)
[2021-07-11] MEDS: SENNA W/DOCUSATE (SENOKOT S) TABLET PO SCH ×2 (08:39→19:46)
[2021-07-11] MEDS: DOCUSATE SODIUM 100 MG (COLACE) CAP PO SCH ×2 (08:39→19:45)
[2021-07-11] MEDS: polyethylene glycoL POWDER 17 GM (MIRALAX) PACK PO SCH ×2 (08:39→19:45)
--- NOTE | 2021-07-11 09:29 | Occupational Ther Daily Note ---
OT Current Status-Daily Note Subjective Pt perseverating on pain/discomfort from catheter as well as how he had to do therapy shortly after arriving on evaluation day. Appearance Pt left supine in bed, all needs within reach, RN notified. Mental Status/Objective Attachments: Lama Catheter, IV ADL-Treatment Therapy Code Descriptions/Definitions Functional [place] Measure: 0=Not Assessed/NA 4=Minimal Assistance 1=Total Assistance 5=Supervision or Setup 2=Maximal Assistance 6=Modified [place] 3=Moderate Assistance 7=Complete IndependenceSCALE: Activities may be completed with or without assistive devices. 3-Iskuttwvbo-djskjnl completes the activity by him/herself with no assistance from a helper. 5-Set-up or Clean-up Assistance-helper sets up or cleans up; patient completes activity. [place] assists only prior to or following the activity. 4-Supervision or Touching Assistance-helper provides verbal cues and/or touching/steadying and/or contact guard assistance as patient completes activity. Assistance may be provided throughout the activity or intermittently. 3-Partial/Moderate Assistance-helper does LESS THAN HALF the effort. [place] lifts, holds or supports trunk or limbs, but provides less than half the effort. 2-Substantial/Maximal Assistance-helper does MORE THAN HALF the effort. [place] lifts or holds trunk or limbs and provides more than half the effort. 5-Ezfgeauds-msbzrh does ALL the effort. Patient does none of the effort to complete the activity. Or, the assistance of 2 or more helpers is required for the patient to complete the activity. If activity was not attempted, code reason: 7-Patient Refused. 9-Not Applicable-not attempted and the patient did not perform the activity before the current illness, exacerbation or injury. 10-Not Attempted due to Environmental Limitations-(lack of equipment, weather restraints, etc.). 88-Not Attempted due to Medical Conditions or Safety Concerns. Oral Hygiene (QC): 4 Shower/Bathe Self (QC): 3 Upper Body Dressing (QC): 5 Lower Body Dressing (QC): 4 On/Off Footwear: 1 Toileting Hygiene (QC): 3 Toilet Transfer (QC): 4 Co-treat with PT due to poor tolerance, high fall risk, impulsivity, and need of 2 skilled clinicians to progress indep and safety with adls and mobility. Pt supine in bed at therapy arrival. Increased time and encouragement to initiate bed mobility. Supine<>sit: SBA. Once initiated, pt is speedy with all transfers. Cues for safety as he almost slid off the edge of the bed. Sponge bath and dressing tasks performed seated EOB. Pt able to wash R foot by bringing it up onto side of bed. Assist needed to reach/wash L foot and to wash buttocks in standing due to limited reach. Extra effort/time noted to thread L foot into pants, but no physical assistance required. Dependent to manage catheter bag through pant leg. Posterior LOB back onto bed when standing to manage clothing up to waist as pt is impulsive and attempted to pull clothing up prior to achieving balance. Cues for slow/controlled pace and for proper YAMILETH/positioning prior to pulling clothing up. He ambulated to/from bathroom with SBA-CGA, speedy gait. Poor follow through with cues. Pt is a high fall risk and requires close sba with all mobility. He declined standing to brush teeth secondary to fatigue, able to complete task in sitting with supervision. Several lengthy rest breaks initiated by patient throughout tasks, requires cues to keep going. During end of session, He ambulated ~25 feet x2 with a seated rest break in between, poor safety with walker management. Education OT Patient Education: Correct positioning, Energy conservation, Modified ADL techniques, Progress toward Goal/Update tx plan, Purpose of tx/functional activities, Reviewed precautions, Rehab process, Safety issues, Transfer techniques Teaching Recipient: Patient Teaching Methods: Demonstration, Discussion Response to Teaching: Verbalize Understanding, Reinforcement Needed OT Short Term Goals Short Term Goals Time Frame: Jul 20, 2021 Shower/bathe self: 3 Putting on/taking off footwear: 3 OT Therapist Phys Goals Therapist Phys Goals Time Frame: August 03, 2021 Eating (QC): 6 Oral Hygiene (QC): 6 Toileting Hygiene (QC): 4 Shower/Bathe Self (QC): 4 Upper Body Dressing (QC): 5 Lower Body Dressing (QC): 5 On/Off Footwear (QC): 5 Additional Goals: 1-Demonstrate ADL Tasks, 2-Verbalize Understanding, 3- ImproveStrength/Marco Antonio 1=Demonstrate adherence to instructed precautions during ADL tasks. 2=Patient will verbalize/demonstrate understanding of assistive devices/modifications for ADL. 3=Patient will improve strength/tolerance for activity to enable patient to perform ADL's. OT Education/Plan Problem List/Assessment Assessment: Decreased Activ Tolerance, Decreased Safety Aware, Decreased UE Strength, Impaired Bed Mobility, Impaired Cognition, Impaired Funct Balance, Impaired Self-Care Skills Discharge Recommendations Plan/Recommendations: Continue POC Treatment Plan/Plan of Care Treatment,Training & Education: Yes Patient would benefit from OT for education, treatment and training to promote independence in ADL's, mobility, safety and/or upper extremity function for ADL's. Plan of Care: ADL Retraining, Functional Mobility, Group Exercise/Act as Ind, UE Funct Exercise/Act Treatment Duration: August 03, 2021 Frequency: At least 5 of 7 days/Wk (IRF) Estimated Hrs Per Day: .25 hour per day Agreement: Yes Rehab Potential: Fair Time/GCodes Start Time: 08:15 Stop Time: 09:30 Total Time Billed (hr/min): 75 Billed Treatment Time 1 visit ADL x4 (60 min) FA (15 min) Beverly Santos OT Jul 11, 2021 09:29
--- NOTE | 2021-07-11 09:30 | Physical Therapy Daily Note ---
PT Daily Note-Current Subjective Pt laying Supine in bed upon arrival. Pt agrees to PT/OT co-treat. Pt perseverating on pain/discomfort from catheter as well as how he had to do therapy shortly after arriving on evaluation day. Mental Status Patient Orientation: Person, Place Attachments: Lama Catheter Transfers SCALE: Activities may be completed with or without assistive devices. 0-Xqwvfqdckf-ravsgzs completes the activity by him/herself with no assistance from a helper. 5-Set-up or Clean-up Assistance-helper sets up or cleans up; patient completes activity. [place] assists only prior to or following the activity. 4-Supervision or Touching Assistance-helper provides verbal cues and/or touching/steadying and/or contact guard assistance as patient completes activity. Assistance may be provided throughout the activity or intermittently. 3-Partial/Moderate Assistance-helper does LESS THAN HALF the effort. [place] lifts, holds or supports trunk or limbs, but provides less than half the effort. 2-Substantial/Maximal Assistance-helper does MORE THAN HALF the effort. [place] lifts or holds trunk or limbs and provides more than half the effort. 7-Cvptrdatr-wspxsv does ALL the effort. Patient does none of the effort to complete the activity. Or, the assistance of 2 or more helpers is required for the patient to complete the activity. If activity was not attempted, code reason: 7-Patient Refused. 9-Not Applicable-not attempted and the patient did not perform the activity before the current illness, exacerbation or injury. 10-Not Attempted due to Environmental Limitations-(lack of equipment, weather restraints, etc.). 88-Not Attempted due to Medical Conditions or Safety Concerns. Sit to Stand (QC): 4 Toilet Transfer (QC): 3 Weight Bearing Full Weight Bearing Full Weight Bearing Gait Training Does the Patient Walk?: Yes Distance: 50' Walk 10 feet (QC): 4 Walk 50 ft with 2 Turns(QC): 4 Gait Persons Needed: 1 Gait Assistive Device: FWW Wheelchair Training Does the Pt Use a Wheelchair?: No Treatments Co-treat with PT due to poor tolerance, high fall risk, impulsivity, and need of 2 skilled clinicians to progress indep and safety with adls and mobility. Pt supine in bed at therapy arrival. Increased time and encouragement to initiate bed mobility. Supine<>sit: SBA. Once initiated, pt is speedy with all transfers. Cues for safety as he almost slid off the edge of the bed. Sponge bath and dressing tasks performed seated EOB. Pt able to wash R foot by bringing it up onto side of bed. Assist needed to reach/wash L foot and to wash buttocks in standing due to limited reach. Extra effort/time noted to thread L foot into pants, but no physical assistance required. Dependent to manage catheter bag through pant leg. Posterior LOB back onto bed when standing to manage clothing up to waist as pt is impulsive and attempted to pull clothing up prior to achieving balance. Cues for slow/controlled pace and for proper YAMILETH/positioning prior to pulling clothing up. He ambulated to/from bathroom with SBA-CGA, speedy gait. Poor follow through with cues. Pt is a high fall risk and requires close sba with all mobility. He declined standing to brush teeth secondary to fatigue, able to complete task in sitting with supervision. Several lengthy rest breaks initiated by patient throughout tasks, requires cues to keep going. During end of session, He ambulated ~25 feet x2 with a seated rest break in between, poor safety with walker management. Pt resting in bed with all needs met, call light in hand. Assessment Current Status: Fair Progress Pt continues to be unmotivated during tx and needs gentle encouragement, stating benefits of Therapy. PT Short Term Goals Short Term Goals Time Frame: Jul 16, 2021 Roll Left & Right: 6 Sit to lyin Lying to sitting on side of be: 4 Sit to stand: 4 (SBA) Chair/gxi-we-ncemq transfer: 4 (SBA) Toilet transfer: 4 (SBA) Car transfer: 4 (SBA) Walk 10 feet: 4 Walk 50 feet with two turns: 4 1 step (curb): 4 (SBA) 4 steps: 3 Does pt use a wc or scooter: No Type: N/A PT Supervisor Floor Assembly Goals Mcc Goals PT Mcc Goals Time Frame: July 30, 2021 Roll Left & Right (QC): 6 Sit to Lying (QC): 6 Lying-Sitting on Side/Bed(QC): 6 Sit to Stand (QC): 6 Chair/Eym-tw-Jvthv Xfer(QC): 6 Toilet Transfer (QC): 6 Car Transfer (QC): 6 Does the Patient Walk: Yes Walk 10 feet (QC): 6 Walk 50ft with 2 Turns (QC): 6 Walk 150 ft (QC): 6 Walking 10ft on Uneven Surface: 6 1 Step (curb) (QC): 6 4 Steps (QC): 6 12 Steps (QC): 9 Picking up an Object (QC): 6 Does the Pt use WC or Scooter?: Yes Wheel 50 feet with 2 turns (QC: 9 Type: Manual Wheel 150 feet: 9 Type: Manual PT Plan Problem List Problem List: Activity Tolerance, Functional Strength, Safety, Gait, Transfer Treatment/Plan Treatment Plan: Continue Plan of Care Treatment Plan: Bed Mobility, Education, Functional Activity Marco Antonio, Functional Strength, Group Therapy, Gait, Safety, Therapeutic Exercise, Transfers Treatment Duration: July 30, 2021 Frequency: At least 5 of 7 days/Wk (IRF) Estimated Hrs Per Day: 1.5 hours per day Patient and/or Family Agrees t: Yes Safety Risks/Education Patient Education: Gait Training, Transfer Techniques, Correct Positioning, Safety Issues Teaching Recipient: Patient Teaching Methods: Discussion Response to Teaching: Verbalize Understanding Time/GCodes Time In: 815 Time Out: 930 Total Billed Treatment Time: 75 Total Billed Treatment Co-treat w/OT for 75m 1, FA x4 & GT EWELINA MCKEON PTA Jul 11, 2021 09:30
[2021-07-11] MEDS: IRON SUCROSE 200 MG/10 ML (VENOFER) VIAL IV SCH (09:56)
[2021-07-11] MEDS: BRIMONIDINE 0.2% (ALPHAGAN) OPHTH SOLN 5 ML BTL OS SCH ×2 (10:05→20:12)
[2021-07-11] MEDS: TIMOLOL MALEATE 0.5% 5 ML (TIMOPTIC) BTL OS SCH ×2 (10:05→20:14)
--- NOTE | 2021-07-11 10:36 | Speech Therapy Daily Note ---
Speech Daily Progress Note Subjective Date Seen by Provider: Jul 11, 2021 Time Seen by Provider: 10:00 The patient was lying in bed, awake and alert upon entrance to his room by the clinician. The patient greeted the clinician appropriately and was agreeable to participation in the cognitive linguistic treatment session. Objective Due to the patient's previous fatigue, the SLUMS was re-attempted on this date. The patient did display an improvement in his results, demonstrating +15/30 today in comparison to +8/30 the day prior. The patient continues to display difficulty in the areas of orientation, memory, and problem solving. To note, the patient did independently direct gaze to the in-room white board to aid in recall of orientation information. Assessment Assessment Current Status: Fair Progress Treatment Plan Continue Plan of Care Speech Short Term Goals Short Term Goals Short Term Goals 1. The patient will demonstrate appropriate use of external memory strategies with 90% accuracy and mild clinician verbal cueing. Time Frame-STG: One Week. Speech Senior Care Goals Ichthyology Teacher Goals 1. The patient will demonstrate increased cognitive linguistic skills for safe discharge to the least restrictive environment. Time Frame: Two Weeks. Speech-Plan Treatment Plan Speech Therapy Treatment Plan: Continue Plan of Care Treatment Duration: Jul 10, 2021 Frequency: Modified Program (IRF) Estimated Hrs Per Day: Other Rehab Potential: Fair Safety Risks/Education Teaching Recipient: Patient Teaching Methods: Demonstration Response to Teaching: Return Demonstration, Reinforcement Needed Education Topics Provided: Orientation Strategies Time Speech Therapy Time In: 10:00 Speech Therapy Time Out: 10:30 Total Billed Time: 30 Billed Treatment Time CASSIA BuchananMANUEL Larose Jul 11, 2021 10:36
[2021-07-11 16:57] VITALS: BP 120/60
[2021-07-11 20:00] VITALS: BP 119/56
[2021-07-11] MEDS: traZODone 50 MG (DESYREL) TAB PO SCH (20:13)
[2021-07-11] MEDS: LATANOPROST 0.005% (XALATAN) OPHTH SOLN 2.5 ML OS SCH (20:14)
[2021-07-12] MEDS: CYANOCOBALAMIN 1,000 MCG (VITAMIN B-12) TABLET PO SCH (06:39)
--- NOTE | 2021-07-12 06:39 | PM&R Progress Note ---
Subjective HPI/CC On Admission Date Seen by Provider: Jul 12, 2021 Time Seen by Provider: 11:00 Subjective/Events-last exam 07/12/2021: Patient doing pretty well Walking around really well Thinks he has a UTI he feels like it I will check a urine sample Multiple antibiotics recently so if antibiotics needed we will have to do broad- spectrum 07/11/2021: Patient doing pretty well 2 small bowel movements today and refused laxatives Leg bag will be initiated for Lama Low-grade fever and Dr. Eaton will monitor only IV iron initiated 07/10/2021: Patient settling in well Worked with PT today No pain is reported until he moves He was able to eat a bit Profound weight loss since diagnosis August 2020 Labs reviewed Checking iron level Review of Systems General: Fatigue, Malaise Objective Exam Vital Signs Vital Signs Date Time Temp Pulse Resp B/P (MAP) Pulse Ox O2 Delivery O2 Flow Rate FiO2 07/12/21 20:30 94 Room Air 07/12/21 20:25 37.9 111 16 125/63 (83) Capillary Refill : General Appearance: No Apparent Distress, WD/WN, Chronically ill, Obese HEENT: PERRL/EOMI, Normal ENT Inspection, Pharynx Normal Neck: Full Range of Motion, Normal Inspection, Non Tender, Supple, Carotid Bruit Respiratory: Chest Non Tender, Lungs Clear, Normal Breath Sounds, No Accessory Muscle Use, No Respiratory Distress, Decreased Breath Sounds Cardiovascular: Regular Rate, Rhythm, No Edema, No Gallop, No JVD, No Murmur, Normal Peripheral Pulses Gastrointestinal: Normal Bowel Sounds, No Organomegaly, No Pulsatile Mass, Soft, Tenderness Back: Normal Inspection, No CVA Tenderness, No Vertebral Tenderness Extremity: Normal Capillary Refill, Normal Inspection, Normal Range of Motion, Non Tender, No Calf Tenderness, No Pedal Edema Neurologic/Psychiatric: Alert, Oriented x3, No Motor/Sensory Deficits, Normal Mood/Affect, Depressed Affect Skin: Normal Color, Warm/Dry Lymphatic: No Adenopathy Results/Procedures Lab Laboratory Tests 07/12/21 14:43 Patient resulted labs reviewed. FIM Transfers Therapy Code Descriptions/Definitions Functional [place] Measure: 0=Not Assessed/NA 4=Minimal Assistance 1=Total Assistance 5=Supervision or Setup 2=Maximal Assistance 6=Modified [place] 3=Moderate Assistance 7=Complete IndependenceSCALE: Activities may be completed with or without assistive devices. 9-Nwsmcljdni-rsobrjc completes the activity by him/herself with no assistance from a helper. 5-Set-up or Clean-up Assistance-helper sets up or cleans up; patient completes activity. [place] assists only prior to or following the activity. 4-Supervision or Touching Assistance-helper provides verbal cues and/or touching/steadying and/or contact guard assistance as patient completes activity. Assistance may be provided throughout the activity or intermittently. 3-Partial/Moderate Assistance-helper does LESS THAN HALF the effort. [place] lifts, holds or supports trunk or limbs, but provides less than half the effort. 2-Substantial/Maximal Assistance-helper does MORE THAN HALF the effort. [place] lifts or holds trunk or limbs and provides more than half the effort. 5-Aoxfsftiw-pdseuv does ALL the effort. Patient does none of the effort to complete the activity. Or, the assistance of 2 or more helpers is required for the patient to complete the activity. If activity was not attempted, code reason: 7-Patient Refused. 9-Not Applicable-not attempted and the patient did not perform the activity before the current illness, exacerbation or injury. 10-Not Attempted due to Environmental Limitations-(lack of equipment, weather restraints, etc.). 88-Not Attempted due to Medical Conditions or Safety Concerns. Roll Left to Right (QC): 6 Sit to Lying (QC): 6 Sit to Stand (QC): 4 Chair/Fqw-gb-Scnpq Xfer(QC): 4 (CGA) Car Transfer (QC): 4 (CGA) Gait Training Does the Patient Walk?: Yes Distance: 50' Walk 10 feet (QC): 4 Walk 50 ft with 2 Turns(QC): 4 Walk 150 ft (QC): 07 Walking 10ft/uneven surface-QC: 4 (CGA) Gait Persons Needed: 1 Gait Assistive Device: FWW Wheelchair Training Does the Pt Use a Wheelchair?: No Wheel 50 ft with 2 turns (QC): 1 Wheel 150 ft (QC): 1 Type of Wheelchair: N/A Stair Training #of Steps: 1 1 Step (curb) (QC): 4 4 Steps (QC): 88 12 Steps (QC): 88 Balance Picking up an Object (QC): 4 ADL-Treatment Eating (QC): 5 (Per clinical judgment.) Oral Hygiene (QC): 4 Shower/Bathe Self (QC): 3 Upper Body Dressing (QC): 5 Lower Body Dressing (QC): 4 On/Off Footwear (QC): 1 Toileting Hygiene (QC): 3 Toilet Transfer (QC): 4 Assessment/Plan Assessment and Plan Assess & Plan/Chief Complaint Assessment: Critical illness myopathy Rectal carcinoma August 2020 diagnosis status post radiation and chemotherapy Status post ileostomy takedown at Recent left-sided pneumothorax Recent left ureteral injury status post nephrostomy tube Bipolar disorder Intellectual delay Former smoker Hypertension Diabetes GERD Oral anticoagulation History of DVT UTI? Plan: Inpatient rehab protocol Pain control Monitor labs Consult Dr. Eaton 07/10/21: Monitor fever Await B12 and iron level Supportive care 07/11/2021: IV iron infusion Supportive care 07/12/2021: Supportive care IV antibiotics Check labs in the morning (1) Rectal carcinoma (2) Hypertension (3) Intellectual delay (4) Weight loss (5) Nephrostomy status (6) Status post pneumothorax (7) Left ureteral injury (8) Former smoker (9) Anemia RADHA MCKAY DO Jul 12, 2021 06:39
[2021-07-12] MEDS: ACETAMINOPHEN 325 MG TABLET PO PRN (06:41)
--- NOTE | 2021-07-12 07:39 | Progress Note - Surgery ---
LYLEBRENDA Nubia 07/12/21 0739: Subjective Date Seen by a Provider: Jul 12, 2021 Time Seen by a Provider: 07:06 Subjective/Events-last exam Mr. Shannon is being followed for a wound in his RUQ with daily packing requirements. He denies pain, discharge, pruritus or redness. He reports it is changed and re-packed multiple times a day. He denies any generalized abdominal pain and has no other complaints. He is working with PT/OT each morning to regain his strength. He says he spends time walking with PT. This morning he denies a subjective fever; he had a temperate of 100.0 at 0641. Review of Systems General: No Chills, No Fatigue Pulmonary: No Dyspnea, No Cough Cardiovascular: No: Chest Pain, Palpitations Gastrointestinal: No: Nausea, Vomiting, Abdominal Pain Neurological: No: Weakness, Confusion Objective Exam Vital Signs Date Time Temp Pulse Resp B/P (MAP) Pulse Ox O2 Delivery O2 Flow Rate FiO2 07/12/21 06:41 37.8 07/11/21 20:20 Room Air 07/11/21 20:00 36.9 106 16 119/56 (77) 92 Room Air 07/11/21 16:57 36.8 105 16 120/60 (80) 90 Room Air 07/11/21 12:46 37.8 07/11/21 10:16 Room Air I & O 07/12/21 07:00 Intake Total 890 ml Output Total 2525 ml Balance -1635 ml Capillary Refill : General Appearance: No Apparent Distress, WD/WN, Chronically ill, Obese HEENT: PERRL/EOMI Neck: Normal Inspection, Non Tender, Supple Respiratory: Chest Non Tender, Lungs Clear, Normal Breath Sounds, No Accessory Muscle Use, No Respiratory Distress Cardiovascular: Regular Rate, Rhythm, No Edema, No Gallop, No Murmur, Normal Peripheral Pulses Peripheral Pulses: 2+ Radial Pulses (R), 2+ Radial Pulses (L) Gastrointestinal: non tender, soft, other (Open wound right upper quadrant) Extremity: Normal Inspection Neurologic/Psychiatric: Alert, Oriented x3, No Motor/Sensory Deficits, Normal Mood/Affect Skin: Normal Color, Warm/Dry Assessment/Plan Assessment/Plan Assessment/Plan Assessment: h/o rectal adenocarcinoma - extensive surgical history Open wound right upper abdomen - iodoform packing BID and PRN - no erythema, discharge, or pain Diminished ability of ADLs Decreased upper and lower extremity strength Anemia Hematuria Plan: Continue home medications Continue PT/OT Social work evaluation Monitor anemia. Trend Hgb. Repdiamond RUQ wound BID or PRN ISSA EATON DO 07/12/21 1543: Subjective Subjective/Events-last exam Patient tolerating diet. Feels like getting stronger. No abdominal pain. No new complaints. Denies fever sweats chills shortness of breath or chest pain. Objective Exam General Appearance: No Apparent Distress, WD/WN, Chronically ill, Obese HEENT: PERRL/EOMI, Normal ENT Inspection Neck: Normal Inspection, Non Tender Respiratory: Chest Non Tender, No Accessory Muscle Use, No Respiratory Distress Cardiovascular: Regular Rate, Rhythm, No JVD Gastrointestinal: non tender, soft, other (Open wound right upper quadrant no signs of infection) Extremity: Normal Inspection Neurologic/Psychiatric: Alert, Oriented x3 Skin: Normal Color, Warm/Dry Lymphatic: No Adenopathy Assessment/Plan Assessment/Plan Assessment/Plan h/o rectal adenocarcinoma - extensive surgical history Open wound right upper abdomen - iodoform packing BID and PRN - no erythema, discharge, or pain Diminished ability of ADLs Decreased upper and lower extremity strength Anemia Hematuria Plan: Continue home medications Continue PT/OT Social work evaluation Monitor anemia. Trend Hgb. [place] RUQ wound BID or PRN Supervisory-Addendum Brief Verification & Attestation Participated in pt care: history, MDM, physical Personally performed: exam, history, MDM, supervision of care Care discussed with: Medical Student Procedures: n/a Results interpretation: Verified all documentation Verification and Attestation of Medical Student E/M Service A medical student performed and documented this service in my presence. I reviewed and verified all information documented by the medical student and made modifications to such information, when appropriate. I personally performed the physical exam and medical decision making. Issa Eaton, Jul 12, 2021,15:43 BRENDA LYLE Jul 12, 2021 07:39 ISSA EATON DO Jul 12, 2021 15:43
[2021-07-12 08:00] VITALS: BP 131/94
--- NOTE | 2021-07-12 08:29 | Occupational Ther Daily Note ---
OT Current Status-Daily Note Subjective "I'm happy with the work that we did." Appearance Pt left supine in bed, all needs within reach. ADL-Treatment Therapy Code Descriptions/Definitions Functional [place] Measure: 0=Not Assessed/NA 4=Minimal Assistance 1=Total Assistance 5=Supervision or Setup 2=Maximal Assistance 6=Modified [place] 3=Moderate Assistance 7=Complete IndependenceSCALE: Activities may be completed with or without assistive devices. 1-Ddshfncvkv-szadfld completes the activity by him/herself with no assistance from a helper. 5-Set-up or Clean-up Assistance-helper sets up or cleans up; patient completes activity. [place] assists only prior to or following the activity. 4-Supervision or Touching Assistance-helper provides verbal cues and/or touching/steadying and/or contact guard assistance as patient completes activi ty. Assistance may be provided throughout the activity or intermittently. 3-Partial/Moderate Assistance-helper does LESS THAN HALF the effort. [place] lifts, holds or supports trunk or limbs, but provides less than half the effort. 2-Substantial/Maximal Assistance-helper does MORE THAN HALF the effort. [place] lifts or holds trunk or limbs and provides more than half the effort. 8-Kuzzihrah-plrjus does ALL the effort. Patient does none of the effort to complete the activity. Or, the assistance of 2 or more helpers is required for the patient to complete the activity. If activity was not attempted, code reason: 7-Patient Refused. 9-Not Applicable-not attempted and the patient did not perform the activity before the current illness, exacerbation or injury. 10-Not Attempted due to Environmental Limitations-(lack of equipment, weather restraints, etc.). 88-Not Attempted due to Medical Conditions or Safety Concerns. Eating (QC): 6 Oral Hygiene (QC): 5 Upper Body Dressing (QC): 5 On/Off Footwear: 1 Toileting Hygiene (QC): 1 (motta catheter) Pt reports fever at OT arrival. Per nursing, pt with low grade fever this morning. Pt still agreeable to treatment as long as he gets to take his time. Grooming tasks performed at bed level with set up assist. Supine<>sit with SBA, cues for safety and slowing down with positional changes. He sat to wash under arms and don shirt with set up assist. Dependent to don keyon hose and socks. Other Treatment Pt participated in UE exercises with 2# dowel leigh ann. Goal to promote increased strength and endurance needed for functional tasks. Pt able to complete all movements through full range, min verbal cues for technique. Mod cues for proper breathing techniques as pt has tendency to hold breath during exercises. Short rest break needed after each movement. 12 x 1 all planes. Pt also performed isometric holds with dowel leigh ann in 90 degrees shoulder flexion with focus on promoting muscle strength. Holds for 30 sec and 40 sec x2. Education OT Patient Education: Correct positioning, Energy conservation, Exercise program, Modified ADL techniques, Progress toward Goal/Update tx plan, Purpose of tx/functional activities, Rehab process, Safety issues, Transfer techniques Teaching Recipient: Patient Teaching Methods: Demonstration, Discussion Response to Teaching: Verbalize Understanding, Return Demonstration, Reinforcement Needed OT Short Term Goals Short Term Goals Time Frame: Jul 20, 2021 Shower/bathe self: 3 Putting on/taking off footwear: 3 OT Prison Goals Spout Positioner Goals Time Frame: August 03, 2021 Eating (QC): 6 Oral Hygiene (QC): 6 Toileting Hygiene (QC): 4 Shower/Bathe Self (QC): 4 Upper Body Dressing (QC): 5 Lower Body Dressing (QC): 5 On/Off Footwear (QC): 5 Additional Goals: 1-Demonstrate ADL Tasks, 2-Verbalize Understanding, 3- ImproveStrength/Marco Antonio 1=Demonstrate adherence to instructed precautions during ADL tasks. 2=Patient will verbalize/demonstrate understanding of assistive devices/modifications for ADL. 3=Patient will improve strength/tolerance for activity to enable patient to perform ADL's. OT Education/Plan Problem List/Assessment Assessment: Decreased Activ Tolerance, Decreased Safety Aware, Decreased UE Strength, Impaired Cognition, Impaired Funct Balance, Impaired Self-Care Skills Discharge Recommendations Plan/Recommendations: Continue POC Treatment Plan/Plan of Care Treatment,Training & Education: Yes Patient would benefit from OT for education, treatment and training to promote independence in ADL's, mobility, safety and/or upper extremity function for ADL' s. Plan of Care: ADL Retraining, Functional Mobility, Group Exercise/Act as Ind, UE Funct Exercise/Act Treatment Duration: August 03, 2021 Frequency: At least 5 of 7 days/Wk (IRF) Estimated Hrs Per Day: .25 hour per day Agreement: Yes Rehab Potential: Fair Time/GCodes Start Time: 07:30 Stop Time: 08:35 Total Time Billed (hr/min): 65 Billed Treatment Time 1 visit ADL x2 EX x2 Beverly Santos OT Jul 12, 2021 08:29
--- NOTE | 2021-07-12 09:27 | Speech Therapy Daily Note ---
Speech Daily Progress Note Subjective Date Seen by Provider: Jul 12, 2021 Time Seen by Provider: 08:35 The patient was resting in bed, awake and alert upon entrance to his room by the clinician. The patient greeted the clinician appropriately and was agreeable to participation in the cognitive linguistic treatment session. Objective - Orientation: The patient independently located orientation information on the in-room white board. The patient provided accurate location, day of week and month. The patient was unable to provide the year or date. - External and Internal Memory Strategies: The patient and clinician discussed internal and external memory strategies. The patient denied frequent use of the internal memory strategies but does report frequent use of external memory strategies. Per patient, he keeps important dates on the calendar in his phone (and his records the appointments, as well). Additionally, the patient's organizes his medication weekly into pill boxes. - One Step Directions: Due to discomfort, the patient's RN addressed the patient's catheter. With modifications, the patient reported a decrease in pain. The patient followed all one-step directions provided by the RN for safe transfers and mobility. Assessment Assessment Current Status: Fair Progress Treatment Plan Continue Plan of Care Speech Short Term Goals Short Term Goals Short Term Goals 1. The patient will demonstrate appropriate use of external memory strategies with 90% accuracy and mild clinician verbal cueing. Time Frame-STG: One Week. Speech Mucker Operator Goals Senior Living Goals 1. The patient will demonstrate increased cognitive linguistic skills for safe discharge to the least restrictive environment. Time Frame: Two Weeks. Speech-Plan Treatment Plan Speech Therapy Treatment Plan: Continue Plan of Care Treatment Duration: Jul 10, 2021 Frequency: Modified Program (IRF) Estimated Hrs Per Day: Other Rehab Potential: Fair Pt/Family Agrees to Plan: Yes Safety Risks/Education Teaching Recipient: Patient Teaching Methods: Discussion Response to Teaching: Reinforcement Needed Education Topics Provided: Internal and External Memory Strategies. Time Speech Therapy Time In: 08:35 Speech Therapy Time Out: 09:30 Total Billed Time: 55 Billed Treatment Time CASSIA Buchanan [facility] Jul 12, 2021 09:27
[2021-07-12] MEDS: OXYBUTYNIN (DITROPAN) 5 MG TAB PO SCH ×2 (10:09→20:52)
[2021-07-12] MEDS: VITAMIN E 180 MG (400 UNITS) CAP PO SCH (10:09)
[2021-07-12] MEDS: TAMSULOSIN 0.4 MG (FLOMAX) CAP PO SCH (10:09)
[2021-07-12] MEDS: FAMOTIDINE 20 MG (PEPCID) TABLET PO SCH ×2 (10:09→20:51)
[2021-07-12] MEDS: FERROUS SULF 325 MG (IRON) TAB PO SCH (10:09)
[2021-07-12] MEDS: OXcarbazepine (TRILEPTAL) 300 MG TAB PO SCH (10:10)
[2021-07-12] MEDS: SODIUM BICARBONATE 650 MG TABLET PO SCH ×3 (10:10→20:52)
[2021-07-12] MEDS: KCL 20 MEQ TAB (K-DUR) PO SCH ×3 (10:10→18:49)
[2021-07-12] MEDS: APIXABAN 5 MG (ELIQUIS) TABLET PO SCH ×2 (10:10→20:52)
[2021-07-12] MEDS: AUGMENTIN 500 MG TAB (AMOXICILLIN/CLAVULANATE) PO SCH ×2 (10:10→20:51)
[2021-07-12] MEDS: DULoxetine 30 MG (CYMBALTA) CAP PO SCH (10:11)
[2021-07-12] MEDS: BRIMONIDINE 0.2% (ALPHAGAN) OPHTH SOLN 5 ML BTL OS SCH ×2 (10:12→20:51)
[2021-07-12] MEDS: TIMOLOL MALEATE 0.5% 5 ML (TIMOPTIC) BTL OS SCH ×2 (10:12→20:51)
--- NOTE | 2021-07-12 10:55 | Physical Therapy Daily Note ---
PT Daily Note-Current Subjective Pt. asleep in a darkened room, when he rouses agrees to Rx, denies pain but is worried about the color of the urine in his catheter. Nurse was notified. 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 Pt. states he wants to sit out in the dining area to eat. This was arranged Pain Location: No Pain Reported Mental Status Patient Orientation: Person, Place, MR (?) Attachments: Lama Catheter Transfers SCALE: Activities may be completed with or without assistive devices. 1-Vnwitbhhmi-elmddlh completes the activity by him/herself with no assistance from a helper. 5-Set-up or Clean-up Assistance-helper sets up or cleans up; patient completes activity. [place] assists only prior to or following the activity. 4-Supervision or Touching Assistance-helper provides verbal cues and/or touching/steadying and/or contact guard assistance as patient completes activity. Assistance may be provided throughout the activity or intermittently. 3-Partial/Moderate Assistance-helper does LESS THAN HALF the effort. [place] lifts, holds or supports trunk or limbs, but provides less than half the effort. 2-Substantial/Maximal Assistance-helper does MORE THAN HALF the effort. [place] lifts or holds trunk or limbs and provides more than half the effort. 0-Ouxsfzkzj-zrblpp does ALL the effort. Patient does none of the effort to complete the activity. Or, the assistance of 2 or more helpers is required for the patient to complete the activity. If activity was not attempted, code reason: 7-Patient Refused. 9-Not Applicable-not attempted and the patient did not perform the activity before the current illness, exacerbation or injury. 10-Not Attempted due to Environmental Limitations-(lack of equipment, weather restraints, etc.). 88-Not Attempted due to Medical Conditions or Safety Concerns. Roll Left & Right (QC): 6 Sit to Lying (QC): 6 Lying to Sitting/Side of Bed(Q: 6 Sit to Stand (QC): 4 Chair/Qsq-sc-Bqwpe Xfer(QC): 4 all sup to sit and sit to stand TRFs CGA Weight Bearing Full Weight Bearing Full Weight Bearing Gait Training Does the Patient Walk?: Yes Walk 10 feet (QC): 4 Walk 50 ft with 2 Turns(QC): 4 Gait Persons Needed: 1 Gait Assistive Device: FWW pt. insists this EDITOR [employer]ICATION[employer] not touch or inhibit him during gait, pts gait is fast in velocity and somewhat unaware of safety but had no LOB or incident. Pt. ambulated 15ft x2, 25ft x4 FWW CGA Exercises Supine Ex: Bridging, Ankle pumps, Rolling, Glut sets, Heel Slides, Short Arc Quads, Scooting, Straight leg raise, Hip abd/add Supine Reps: 12 Seated Therapy Exercises: Ankle pumps, Sit to stand, Long arc quads, Hip f lexion, Hip abd/add Seated Reps: 12 Treatments bed mob, RFs, supine therex, gait Assessment Current Status: Good Progress pt. expresses himself and makes it known he wants things his way, meal orders briefly taken during Rx and pt. was very expressive that he is " not interested in any of this fancy schmancy food around here, bring me a hot dog!" PT Short Term Goals Short Term Goals Time Frame: Jul 16, 2021 Roll Left & Right: 6 Sit to lyin Lying to sitting on side of be: 4 Sit to stand: 4 (SBA) Chair/ybz-og-ahnpa transfer: 4 (SBA) Toilet transfer: 4 (SBA) Car transfer: 4 (SBA) Walk 10 feet: 4 Walk 50 feet with two turns: 4 1 step (curb): 4 (SBA) 4 steps: 3 Does pt use a wc or scooter: No Type: N/A PT Fci Goals Fci Goals PT Site Interpreter Goals Time Frame: July 30, 2021 Roll Left & Right (QC): 6 Sit to Lying (QC): 6 Lying-Sitting on Side/Bed(QC): 6 Sit to Stand (QC): 6 Chair/Tpt-sz-Ueufe Xfer(QC): 6 Toilet Transfer (QC): 6 Car Transfer (QC): 6 Does the Patient Walk: Yes Walk 10 feet (QC): 6 Walk 50ft with 2 Turns (QC): 6 Walk 150 ft (QC): 6 Walking 10ft on Uneven Surface: 6 1 Step (curb) (QC): 6 4 Steps (QC): 6 12 Steps (QC): 9 Picking up an Object (QC): 6 Does the Pt use WC or Scooter?: Yes Wheel 50 feet with 2 turns (QC: 9 Type: Manual Wheel 150 feet: 9 Type: Manual PT Plan Treatment/Plan Treatment Plan: Continue Plan of Care Treatment Plan: Bed Mobility, Education, Functional Activity Marco Antonio, Functional Strength, Group Therapy, Gait, Safety, Therapeutic Exercise, Transfers Treatment Duration: July 30, 2021 Frequency: At least 5 of 7 days/Wk (IRF) Estimated Hrs Per Day: 1.5 hours per day Patient and/or Family Agrees t: Yes Safety Risks/Education Patient Education: Gait Training, Transfer Techniques, Correct Positioning, Safety Issues Teaching Recipient: Patient Teaching Methods: Demonstration, Discussion Response to Teaching: Verbalize Understanding, Return Demonstration, Reinforcement Needed Time/GCodes Time In: 1000 (1130) Time Out: 1030 (1200) Total Billed Treatment 1x2,EX35m,GT25m KALIA HSIEH EDITOR PUBLICATIONS Jul 12, 2021 10:55
--- NOTE | 2021-07-12 13:01 | Physical Therapy Daily Note ---
PT Daily Note-Current Subjective Pt. in bed, loved he efrnanda he had for lunch, agrees to bed ex Pain Location: No Pain Reported Mental Status Patient Orientation: MR Transfers SCALE: Activities may be completed with or without assistive devices. 4-Xebzzdijsx-hqmijpf completes the activity by him/herself with no assistance from a helper. 5-Set-up or Clean-up Assistance-helper sets up or cleans up; patient completes activity. [place] assists only prior to or following the activity. 4-Supervision or Touching Assistance-helper provides verbal cues and/or touching/steadying and/or contact guard assistance as patient completes activity. Assistance may be provided throughout the activity or intermittently. 3-Partial/Moderate Assistance-helper does LESS THAN HALF the effort. [place] lifts, holds or supports trunk or limbs, but provides less than half the effort. 2-Substantial/Maximal Assistance-helper does MORE THAN HALF the effort. [place] lifts or holds trunk or limbs and provides more than half the effort. 6-Puqpxlyro-gsjeuc does ALL the effort. Patient does none of the effort to complete the activity. Or, the assistance of 2 or more helpers is required for the patient to complete the activity. If activity was not attempted, code reason: 7-Patient Refused. 9-Not Applicable-not attempted and the patient did not perform the activity before the current illness, exacerbation or injury. 10-Not Attempted due to Environmental Limitations-(lack of equipment, weather restraints, etc.). 88-Not Attempted due to Medical Conditions or Safety Concerns. rolls left and right limited but SBA Weight Bearing Full Weight Bearing Full Weight Bearing Exercises Supine Ex: Ankle pumps, Quad Set, Rolling, Glut sets, Heel Slides, Scooting, Hip abd/add Supine Reps: 15 Assessment Current Status: Good Progress PT Short Term Goals Short Term Goals Time Frame: Jul 16, 2021 Roll Left & Right: 6 Sit to lyin Lying to sitting on side of be: 4 Sit to stand: 4 (SBA) Chair/chc-pa-mkhmi transfer: 4 (SBA) Toilet transfer: 4 (SBA) Car transfer: 4 (SBA) Walk 10 feet: 4 Walk 50 feet with two turns: 4 1 step (curb): 4 (SBA) 4 steps: 3 Does pt use a wc or scooter: No Type: N/A PT Eyewear Consultant Goals Prison Goals PT Prison Goals Time Frame: July 30, 2021 Roll Left & Right (QC): 6 Sit to Lying (QC): 6 Lying-Sitting on Side/Bed(QC): 6 Sit to Stand (QC): 6 Chair/Two-sl-Xdtep Xfer(QC): 6 Toilet Transfer (QC): 6 Car Transfer (QC): 6 Does the Patient Walk: Yes Walk 10 feet (QC): 6 Walk 50ft with 2 Turns (QC): 6 Walk 150 ft (QC): 6 Walking 10ft on Uneven Surface: 6 1 Step (curb) (QC): 6 4 Steps (QC): 6 12 Steps (QC): 9 Picking up an Object (QC): 6 Does the Pt use WC or Scooter?: Yes Wheel 50 feet with 2 turns (QC: 9 Type: Manual Wheel 150 feet: 9 Type: Manual PT Plan Treatment/Plan Treatment Plan: Continue Plan of Care Treatment Plan: Bed Mobility, Education, Functional Activity Marco Antonio, Functional Strength, Group Therapy, Gait, Safety, Therapeutic Exercise, Transfers Treatment Duration: July 30, 2021 Frequency: At least 5 of 7 days/Wk (IRF) Estimated Hrs Per Day: 1.5 hours per day Patient and/or Family Agrees t: Yes Safety Risks/Education Patient Education: Correct Positioning Time/GCodes Time In: 1245 Time Out: 1300 Total Billed Treatment Time: 15 Total Billed Treatment 1,Ex15m KALIA HSIEH GROUP SOCIAL WORKER Jul 12, 2021 13:01
[2021-07-12 14:56] LABS: BASOPHILS % (AUTO) 0 % (0-10); EOSINOPHILS # (AUTO) 0.3 10^3/uL (0.0-0.3); EOSINOPHILS % (AUTO) 5 % (0-10); HEMATOCRIT 24 % (40-54); HEMOGLOBIN 7.3 g/dL (13.3-17.7); LYMPHOCYTES # (AUTO) 0.8 10^3/uL (1.0-4.0); LYMPHOCYTES % (AUTO) 11 % (12-44); MEAN CORPUSCULAR HEMOGLOBIN 26 pg (25-34); MEAN CORPUSCULAR HGB CONC 30 g/dL (32-36); MEAN CORPUSCULAR VOLUME 85 fL (80-99); MEAN PLATELET VOLUME 8.4 fL (9.0-12.2); MONOCYTES % (AUTO) 14 % (0-12); NEUTROPHILS % (AUTO) 70 % (42-75); PLATELET COUNT 352 10^3/uL (130-400); WHITE BLOOD COUNT 7.2 10^3/uL (4.3-11.0)
[2021-07-12 15:06] LABS: ALBUMIN 3.1 GM/DL (3.2-4.5); POTASSIUM 4.1 MMOL/L (3.6-5.0)
[2021-07-12 15:08] LABS: CALCIUM 9.1 MG/DL (8.5-10.1)
[2021-07-12 15:09] LABS: TOTAL PROTEIN 6.7 GM/DL (6.4-8.2)
[2021-07-12 15:11] LABS: BILIRUBIN,TOTAL 0.2 MG/DL (0.1-1.0)
[2021-07-12 15:12] LABS: CREATININE SERUM 0.91 MG/DL (0.60-1.30)
[2021-07-12] MEDS: polyethylene glycoL POWDER 17 GM (MIRALAX) PACK PO SCH ×2 (16:35→21:00)
[2021-07-12] MEDS: DOCUSATE SODIUM 100 MG (COLACE) CAP PO SCH ×2 (16:35→21:00)
[2021-07-12] MEDS: SENNA W/DOCUSATE (SENOKOT S) TABLET PO SCH ×2 (16:35→21:00)
[2021-07-12 17:59] LABS: BILIRUBIN,URINE NEGATIVE (NEGATIVE); CLARITY,URINE SL CLOUDY; COLOR,URINE ORANGE; GLUCOSE, URINE (UA) NEGATIVE (NEGATIVE); KETONES,URINE NEGATIVE (NEGATIVE); LEUKOCYTE ESTERASE ,URINE 3+ (NEGATIVE); NITRITE,URINE NEGATIVE (NEGATIVE); PH,URINE 7.5 (5-9); PROTEIN,URINE 2+ (NEGATIVE)
[2021-07-12 18:06] LABS: BACTERIA,URINE NEGATIVE /HPF; RBC,URINE >100 /HPF; WBC,URINE 50-100 /HPF
[2021-07-12 18:07] LABS: TRICHOMONAS,URINE LARGE /HPF
[2021-07-12 20:25] VITALS: BP 125/63
[2021-07-12] MEDS: LATANOPROST 0.005% (XALATAN) OPHTH SOLN 2.5 ML OS SCH (20:51)
[2021-07-12] MEDS: traZODone 50 MG (DESYREL) TAB PO SCH (20:52)
[2021-07-13] MEDS ORDERED: VANCOMYCIN INJECTION 0.1 MG in NS (IVPB) 250 ML IV SCH (06:15)
[2021-07-13] MEDS ORDERED: NS IV 1000 ML 1,000 ML IV SCH (06:15)
[2021-07-13] MEDS: CYANOCOBALAMIN 1,000 MCG (VITAMIN B-12) TABLET PO SCH (06:48)
--- NOTE | 2021-07-13 07:00 | PM&R Progress Note ---
Subjective HPI/CC On Admission Date Seen by Provider: Jul 13, 2021 Time Seen by Provider: 12:15 Subjective/Events-last exam 07/13/2021: Patient doing well Updated patient on trichomonas in his urine culture and he reports he has not had sexual relations for a long time I told him to discuss with his because co-treatment recommended Awaiting urine culture Lactic Acid level was normal 07/12/2021: Patient doing pretty well Walking around really well Thinks he has a UTI he feels like it I will check a urine sample Multiple antibiotics recently so if antibiotics needed we will have to do broad- spectrum 07/11/2021: Patient doing pretty well 2 small bowel movements today and refused laxatives Leg bag will be initiated for [place] Low-grade fever and Dr. Eaton will monitor only IV iron initiated 07/10/2021: Patient settling in well Worked with PT today No pain is reported until he moves He was able to eat a bit Profound weight loss since diagnosis August 2020 Labs reviewed Checking iron level Review of Systems General: Fatigue, Malaise Focused Exam Lactate Level 07/13/21 06:40: Lactic Acid Level 1.18 Objective Exam Vital Signs Vital Signs Date Time Temp Pulse Resp B/P (MAP) Pulse Ox O2 Delivery O2 Flow Rate FiO2 07/13/21 21:48 Room Air 07/13/21 21:47 37.8 120 18 127/59 (81) 91 Capillary Refill : General Appearance: No Apparent Distress, WD/WN, Chronically ill, Obese HEENT: PERRL/EOMI, Normal ENT Inspection, Pharynx Normal Neck: Full Range of Motion, Normal Inspection, Non Tender, Supple, Carotid Bruit Respiratory: Chest Non Tender, Lungs Clear, Normal Breath Sounds, No Accessory Muscle Use, No Respiratory Distress, Decreased Breath Sounds Cardiovascular: Regular Rate, Rhythm, No Edema, No Gallop, No JVD, No Murmur, Normal Peripheral Pulses Gastrointestinal: Normal Bowel Sounds, No Organomegaly, No Pulsatile Mass, Soft, Tenderness Back: Normal Inspection, No CVA Tenderness, No Vertebral Tenderness Extremity: Normal Capillary Refill, Normal Inspection, Normal Range of Motion, Non Tender, No Calf Tenderness, No Pedal Edema Neurologic/Psychiatric: Alert, Oriented x3, No Motor/Sensory Deficits, Normal Mood/Affect, Depressed Affect Skin: Normal Color, Warm/Dry Lymphatic: No Adenopathy Results/Procedures Lab Laboratory Tests 4/15/22 06:40 Patient resulted labs reviewed. FIM Transfers Therapy Code Descriptions/Definitions Functional [place] Measure: 0=Not Assessed/NA 4=Minimal Assistance 1=Total Assistance 5=Supervision or Setup 2=Maximal Assistance 6=Modified [place] 3=Moderate Assistance 7=Complete IndependenceSCALE: Activities may be completed with or without assistive devices. 1-Qbikuxzyyd-qakiekh completes the activity by him/herself with no assistance from a helper. 5-Set-up or Clean-up Assistance-helper sets up or cleans up; patient completes activity. [place] assists only prior to or following the activity. 4-Supervision or Touching Assistance-helper provides verbal cues and/or touching/steadying and/or contact guard assistance as patient completes activity. Assistance may be provided throughout the activity or intermittently. 3-Partial/Moderate Assistance-helper does LESS THAN HALF the effort. [place] lifts, holds or supports trunk or limbs, but provides less than half the effort. 2-Substantial/Maximal Assistance-helper does MORE THAN HALF the effort. [place] lifts or holds trunk or limbs and provides more than half the effort. 2-Rqhboymhq-dvokqz does ALL the effort. Patient does none of the effort to complete the activity. Or, the assistance of 2 or more helpers is required for the patient to complete the activity. If activity was not attempted, code reason: 7-Patient Refused. 9-Not Applicable-not attempted and the patient did not perform the activity before the current illness, exacerbation or injury. 10-Not Attempted due to Environmental Limitations-(lack of equipment, weather restraints, etc.). 88-Not Attempted due to Medical Conditions or Safety Concerns. Roll Left to Right (QC): 6 Sit to Lying (QC): 6 Sit to Stand (QC): 4 Chair/Bth-cq-Aqkdb Xfer(QC): 4 Car Transfer (QC): 4 (CGA) Gait Training Does the Patient Walk?: Yes Distance: 50' Walk 10 feet (QC): 4 Walk 50 ft with 2 Turns(QC): 4 Walk 150 ft (QC): 07 Walking 10ft/uneven surface-QC: 4 (CGA) Gait Persons Needed: 1 Gait Assistive Device: FWW Wheelchair Training Does the Pt Use a Wheelchair?: No Wheel 50 ft with 2 turns (QC): 1 Wheel 150 ft (QC): 1 Type of Wheelchair: N/A Stair Training #of Steps: 1 1 Step (curb) (QC): 4 4 Steps (QC): 88 12 Steps (QC): 88 Balance Picking up an Object (QC): 4 ADL-Treatment Eating (QC): 6 Oral Hygiene (QC): 5 Shower/Bathe Self (QC): 3 Upper Body Dressing (QC): 5 Lower Body Dressing (QC): 4 On/Off Footwear (QC): 1 Toileting Hygiene (QC): 1 (motta catheter) Toilet Transfer (QC): 4 Assessment/Plan Assessment and Plan Assess & Plan/Chief Complaint Assessment: Critical illness myopathy Rectal carcinoma August 2020 diagnosis status post radiation and chemotherapy Status post ileostomy takedown at Recent left-sided pneumothorax Recent left ureteral injury status post nephrostomy tube Bipolar disorder Intellectual delay Former smoker Hypertension Diabetes GERD Oral anticoagulation History of DVT UTI? Trichomonas status post 2000 mg of Flagyl x1 Plan: Inpatient rehab protocol Pain control Monitor labs Consult Dr. Eaton 07/10/21: Monitor fever Await B12 and iron level Supportive care 07/11/2021: IV iron infusion Supportive care 07/12/2021: Supportive care IV antibiotics Check labs in the morning 07/13/2021: IV antibiotics Await urine culture Treat trichomonas (1) Rectal carcinoma (2) Hypertension (3) Intellectual delay (4) Weight loss (5) Nephrostomy status (6) Status post pneumothorax (7) Left ureteral injury (8) Former smoker (9) Anemia RADHA MCKAY DO Jul 13, 2021 06:59
[2021-07-13 07:03] LABS: BASOPHILS % (AUTO) 0 % (0-10); EOSINOPHILS # (AUTO) 0.2 10^3/uL (0.0-0.3); EOSINOPHILS % (AUTO) 3 % (0-10); HEMATOCRIT 26 % (40-54); LYMPHOCYTES # (AUTO) 1.1 10^3/uL (1.0-4.0); LYMPHOCYTES % (AUTO) 12 % (12-44); MEAN CORPUSCULAR HEMOGLOBIN 26 pg (25-34); MEAN CORPUSCULAR HGB CONC 30 g/dL (32-36); MEAN CORPUSCULAR VOLUME 85 fL (80-99); MEAN PLATELET VOLUME 8.2 fL (9.0-12.2); MONOCYTES # (AUTO) 1.1 10^3/uL (0.0-1.0); MONOCYTES % (AUTO) 12 % (0-12); NEUTROPHILS # (AUTO) 6.4 10^3/uL (1.8-7.8); NEUTROPHILS % (AUTO) 73 % (42-75); PLATELET COUNT 424 10^3/uL (130-400); WHITE BLOOD COUNT 8.9 10^3/uL (4.3-11.0)
[2021-07-13 07:19] LABS: ALBUMIN 3.3 GM/DL (3.2-4.5); BILIRUBIN,TOTAL 0.3 MG/DL (0.1-1.0); CALCIUM 9.5 MG/DL (8.5-10.1); CREATININE SERUM 0.99 MG/DL (0.60-1.30); TOTAL PROTEIN 7.5 GM/DL (6.4-8.2)
[2021-07-13 07:35] VITALS: BP 152/78
[2021-07-13] MEDS: FERROUS SULF 325 MG (IRON) TAB PO SCH (08:26)
[2021-07-13] MEDS: APIXABAN 5 MG (ELIQUIS) TABLET PO SCH ×2 (08:26→20:57)
[2021-07-13] MEDS: FAMOTIDINE 20 MG (PEPCID) TABLET PO SCH ×2 (08:26→20:58)
[2021-07-13] MEDS: OXcarbazepine (TRILEPTAL) 300 MG TAB PO SCH (08:26)
[2021-07-13] MEDS: AUGMENTIN 500 MG TAB (AMOXICILLIN/CLAVULANATE) PO SCH (08:26)
[2021-07-13] MEDS: IRON SUCROSE 200 MG/10 ML (VENOFER) VIAL IV SCH ×2 (08:26→08:28)
[2021-07-13] MEDS: VITAMIN E 180 MG (400 UNITS) CAP PO SCH (08:26)
[2021-07-13] MEDS: DULoxetine 30 MG (CYMBALTA) CAP PO SCH (08:27)
[2021-07-13] MEDS: TAMSULOSIN 0.4 MG (FLOMAX) CAP PO SCH (08:27)
[2021-07-13] MEDS: SODIUM BICARBONATE 650 MG TABLET PO SCH ×3 (08:27→20:58)
[2021-07-13] MEDS: KCL 20 MEQ TAB (K-DUR) PO SCH ×3 (08:27→17:24)
[2021-07-13] MEDS: OXYBUTYNIN (DITROPAN) 5 MG TAB PO SCH ×2 (08:27→20:57)
[2021-07-13] MEDS: TIMOLOL MALEATE 0.5% 5 ML (TIMOPTIC) BTL OS SCH ×2 (08:31→21:00)
[2021-07-13] MEDS: DOCUSATE SODIUM 100 MG (COLACE) CAP PO SCH ×2 (08:32→19:46)
[2021-07-13] MEDS: BRIMONIDINE 0.2% (ALPHAGAN) OPHTH SOLN 5 ML BTL OS SCH ×2 (08:32→20:59)
[2021-07-13] MEDS: polyethylene glycoL POWDER 17 GM (MIRALAX) PACK PO SCH ×2 (08:32→19:46)
[2021-07-13] MEDS: SENNA W/DOCUSATE (SENOKOT S) TABLET PO SCH ×2 (08:32→19:46)
--- NOTE | 2021-07-13 08:40 | Occupational Ther Daily Note ---
OT Current Status-Daily Note Subjective Pt reports poor sleep. Requires extensive encouragement and time to participate this date. Appearance Pt returned to supine in bed, all needs within reach. RN in room. Mental Status/Objective Patient Orientation: Person, Place Attachments: Motta Catheter, IV ADL-Treatment Therapy Code Descriptions/Definitions Functional [place] Measure: 0=Not Assessed/NA 4=Minimal Assistance 1=Total Assistance 5=Supervision or Setup 2=Maximal Assistance 6=Modified [place] 3=Moderate Assistance 7=Complete IndependenceSCALE: Activities may be completed with or without assistive devices. 7-Luwjhiadqe-zrzogfk completes the activity by him/herself with no assistance from a helper. 5-Set-up or Clean-up Assistance-helper sets up or cleans up; patient completes activity. [place] assists only prior to or following the activity. 4-Supervision or Touching Assistance-helper provides verbal cues and/or touching/steadying and/or contact guard assistance as patient completes activity. Assistance may be provided throughout the activity or intermittently. 3-Partial/Moderate Assistance-helper does LESS THAN HALF the effort. [place] lifts, holds or supports trunk or limbs, but provides less than half the effort. 2-Substantial/Maximal Assistance-helper does MORE THAN HALF the effort. [place] lifts or holds trunk or limbs and provides more than half the effort. 5-Xcijelbgw-fsyxhm does ALL the effort. Patient does none of the effort to complete the activity. Or, the assistance of 2 or more helpers is required for the patient to complete the activity. If activity was not attempted, code reason: 7-Patient Refused. 9-Not Applicable-not attempted and the patient did not perform the activity before the current illness, exacerbation or injury. 10-Not Attempted due to Environmental Limitations-(lack of equipment, weather restraints, etc.). 88-Not Attempted due to Medical Conditions or Safety Concerns. Eating (QC): 6 Oral Hygiene (QC): 5 Upper Body Dressing (QC): 5 On/Off Footwear: 1 Toileting Hygiene (QC): 1 (motta catheter) Significant amount of time needed to waken and participate this date. Pt exhibits extra slow processing with all cues/questions. Grooming tasks performed seated EOB, cues for improved positioning to improve balance at edge. He sat to wash under arms with SBA. Pt adamant about re-donning same shirt despite him wearing it for 3 days and already cleaning his body. Pt refuses to change pants reporting that he already did that this morning. Pants do appear different than previous date. Dependent to don keyon hose and socks. Other Treatment Pt participated in UE exercises with 2# dowel leigh ann. Goal to promote increased strength and endurance needed for functional tasks. Pt able to complete all movements through full range, good recall on proper technique. Mod cues for breathing techniques as pt continues to have a tendency to hold his breath during exercises. Pt moaning throughout all exercises, reports feeling more fatigued this date. Requires a Short rest break after each set 10 x 1 all planes. Pt reports dizziness towards end of exercises, nurse in room and is aware. RN starting IV infusion at therapy departure. Education OT Patient Education: Correct positioning, Energy conservation, Modified ADL techniques, Progress toward Goal/Update tx plan, Purpose of tx/functional activities, Rehab process, Safety issues, Transfer techniques Teaching Recipient: Patient Teaching Methods: Demonstration, Discussion Response to Teaching: Verbalize Understanding, Return Demonstration, Reinforcement Needed OT Short Term Goals Short Term Goals Time Frame: Jul 20, 2021 Shower/bathe self: 3 Putting on/taking off footwear: 3 OT Longterm Goals Longterm Goals Time Frame: August 03, 2021 Eating (QC): 6 Oral Hygiene (QC): 6 Toileting Hygiene (QC): 4 Shower/Bathe Self (QC): 4 Upper Body Dressing (QC): 5 Lower Body Dressing (QC): 5 On/Off Footwear (QC): 5 Additional Goals: 1-Demonstrate ADL Tasks, 2-Verbalize Understanding, 3- ImproveStrength/[place] 1=Demonstrate adherence to instructed precautions during ADL tasks. 2=Patient will verbalize/demonstrate understanding of assistive devices/modifications for ADL. 3=Patient will improve strength/tolerance for activity to enable patient to perform ADL's. OT Education/Plan Problem List/Assessment Assessment: Decreased Activ Tolerance, Decreased Safety Aware, Decreased UE Strength, Impaired Bed Mobility, Impaired Cognition, Impaired Funct Balance, Impaired Self-Care Skills Discharge Recommendations Plan/Recommendations: Continue POC Treatment Plan/Plan of Care Treatment,Training & Education: Yes Patient would benefit from OT for education, treatment and training to promote independence in ADL's, mobility, safety and/or upper extremity function for ADL's. Plan of Care: ADL Retraining, Functional Mobility, Group Exercise/Act as Ind, UE Funct Exercise/Act Treatment Duration: August 03, 2021 Frequency: At least 5 of 7 days/Wk (IRF) Estimated Hrs Per Day: .25 hour per day Agreement: Yes Rehab Potential: Fair Time/GCodes Start Time: 07:30 Stop Time: 08:45 Total Time Billed (hr/min): 75 Billed Treatment Time 1 visit ADL x3 (40 min) Ex x2 (35 min) Beverly Santos OT Jul 13, 2021 08:40
[2021-07-13] MEDS ORDERED: VANCOMYCIN 2000 MG/NS 500 ML IVPB IV NR ×2 (09:00)
[2021-07-13] MEDS: MEROPENEM 1,000 MG in NS (IVPB) 100 ML IV SCH ×2 (09:00→17:23)
--- NOTE | 2021-07-13 10:11 | Speech Therapy Daily Note ---
Speech Daily Progress Note Subjective Date Seen by Provider: Jul 13, 2021 Time Seen by Provider: 09:00 The patient was lying in bed, awake upon entrance to his room by the clinician. Per patient, he was recently diagnosed with an UTI. The patient is agreeable to cognitive treatment but does report fatigue on this date. Objective - Orientation: The patient was independently oriented to month and day of week. The patient stated the date was the and the year was 2022. - Word-Finding: The patient was provided a word and asked to provide a second word which could be closely associated. The patient displayed high accuracy (83%), independently. The patient does display fatigue throughout the treatment session, frequently closing his eyes and requiring verbal encouragement for participation. Assessment Assessment Current Status: Fair Progress Treatment Plan Continue Plan of Care Speech Short Term Goals Short Term Goals Short Term Goals 1. The patient will demonstrate appropriate use of external memory strategies with 90% accuracy and mild clinician verbal cueing. Time Frame-STG: One Week. Speech Usp Goals Usp Goals 1. The patient will demonstrate increased cognitive linguistic skills for safe discharge to the least restrictive environment. Time Frame: Two Weeks. Speech-Plan Treatment Plan Speech Therapy Treatment Plan: Continue Plan of Care Treatment Duration: Jul 10, 2021 Frequency: Modified Program (IRF) Estimated Hrs Per Day: Other Rehab Potential: Fair Safety Risks/Education Teaching Recipient: Patient Teaching Methods: Demonstration, Discussion Response to Teaching: Reinforcement Needed Education Topics Provided: Word Finding Strategies Time Speech Therapy Time In: 09:00 Speech Therapy Time Out: 09:30 Total Billed Time: 30 Billed Treatment Time CASSIA Buchanan [facility] Jul 13, 2021 10:11
[2021-07-13] MEDS: ACETAMINOPHEN 325 MG TABLET PO PRN (10:38)
--- NOTE | 2021-07-13 11:00 | Physical Therapy Daily Note ---
PT Daily Note-Current Subjective Pt. in bed, only agrees to Rx with much encouragement and with many rest breaks etc. Pt. keeps eyes closed much of the time, moans occas. Pain Location: No Pain Reported Mental Status Patient Orientation: MR Transfers SCALE: Activities may be completed with or without assistive devices. 1-Mizuyacwup-hxdwqns completes the activity by him/herself with no assistance from a helper. 5-Set-up or Clean-up Assistance-helper sets up or cleans up; patient completes activity. [place] assists only prior to or following the activity. 4-Supervision or Touching Assistance-helper provides verbal cues and/or touching/steadying and/or contact guard assistance as patient completes activity. Assistance may be provided throughout the activity or intermittently. 3-Partial/Moderate Assistance-helper does LESS THAN HALF the effort. [place] li fts, holds or supports trunk or limbs, but provides less than half the effort. 2-Substantial/Maximal Assistance-helper does MORE THAN HALF the effort. [place] lifts or holds trunk or limbs and provides more than half the effort. 2-Kcveuvilx-nhydlt does ALL the effort. Patient does none of the effort to complete the activity. Or, the assistance of 2 or more helpers is required for the patient to complete the activity. If activity was not attempted, code reason: 7-Patient Refused. 9-Not Applicable-not attempted and the patient did not perform the activity before the current illness, exacerbation or injury. 10-Not Attempted due to Environmental Limitations-(lack of equipment, weather restraints, etc.). 88-Not Attempted due to Medical Conditions or Safety Concerns. rolls left and right , declined sitting at edge of bed to up to chair Weight Bearing Full Weight Bearing Full Weight Bearing Exercises Supine Ex: Ankle pumps, Quad Set, Rolling, Glut sets, Heel Slides, Short Arc Quads, Scooting, Straight leg raise, Hip abd/add Supine Reps: 10 (x3) Treatments pt. uncomfortable , febrile, pt. cooperated intermittently for LE ex, was encouraged to drink water and was educated about how fluids ,franki clear fluids would help flush his system and bladder, pt. does not like to drink but did take multiple sips when prompted. pt. did rolling and LE ex with many breaks between as well as education regarding health and skin protection, lung health and prophylactic measures etc Assessment Current Status: Poor Progress pt. is warm to touch, febrile 38.4c, nurse dispensed tylenol PT Short Term Goals Short Term Goals Time Frame: Jul 16, 2021 Roll Left & Right: 6 Sit to lyin Lying to sitting on side of be: 4 Sit to stand: 4 (SBA) Chair/ghv-zn-loykb transfer: 4 (SBA) Toilet transfer: 4 (SBA) Car transfer: 4 (SBA) Walk 10 feet: 4 Walk 50 feet with two turns: 4 1 step (curb): 4 (SBA) 4 steps: 3 Does pt use a wc or scooter: No Type: N/A PT Installer Helper Goals Long-Term Goals PT Installer Helper Goals Time Frame: July 30, 2021 Roll Left & Right (QC): 6 Sit to Lying (QC): 6 Lying-Sitting on Side/Bed(QC): 6 Sit to Stand (QC): 6 Chair/Acx-ed-Jvjof Xfer(QC): 6 Toilet Transfer (QC): 6 Car Transfer (QC): 6 Does the Patient Walk: Yes Walk 10 feet (QC): 6 Walk 50ft with 2 Turns (QC): 6 Walk 150 ft (QC): 6 Walking 10ft on Uneven Surface: 6 1 Step (curb) (QC): 6 4 Steps (QC): 6 12 Steps (QC): 9 Picking up an Object (QC): 6 Does the Pt use WC or Scooter?: Yes Wheel 50 feet with 2 turns (QC: 9 Type: Manual Wheel 150 feet: 9 Type: Manual PT Plan Treatment/Plan Treatment Plan: Continue Plan of Care Treatment Plan: Bed Mobility, Education, Functional Activity [place], Functional Strength, Group Therapy, Gait, Safety, Therapeutic Exercise, Transfers Treatment Duration: July 30, 2021 Frequency: At least 5 of 7 days/Wk (IRF) Estimated Hrs Per Day: 1.5 hours per day Patient and/or Family Agrees t: Yes Safety Risks/Education Patient Education: Correct Positioning Teaching Methods: Discussion Response to Teaching: Return Demonstration Time/GCodes Time In: 1000 Time Out: 1100 Total Billed Treatment Time: 60 Total Billed Treatment 1,EX35m,FA25m KALIA HSIEH TEST DESK OPERATOR Jul 13, 2021 11:00
--- NOTE | 2021-07-13 11:56 | Physical Therapy Daily Note ---
PT Daily Note-Current Subjective Pt. states he feels a little better than this morning, agrees to move around a bit Pain Location: No Pain Reported Mental Status Patient Orientation: MR Attachments: IV Transfers SCALE: Activities may be completed with or without assistive devices. 0-Rsjedwcqog-xqgtfuj completes the activity by him/herself with no assistance from a helper. 5-Set-up or Clean-up Assistance-helper sets up or cleans up; patient completes activity. [place] assists only prior to or following the activity. 4-Supervision or Touching Assistance-helper provides verbal cues and/or touching/steadying and/or contact guard assistance as patient completes activity. Assistance may be provided throughout the activity or intermittently. 3-Partial/Moderate Assistance-helper does LESS THAN HALF the effort. [place] lifts, holds or supports trunk or limbs, but provides less than half the effort. 2-Substantial/Maximal Assistance-helper does MORE THAN HALF the effort. [place] lifts or holds trunk or limbs and provides more than half the effort. 8-Osaflsxwp-gifxik does ALL the effort. Patient does none of the effort to complete the activity. Or, the assistance of 2 or more helpers is required for the patient to complete the activity. If activity was not attempted, code reason: 7-Patient Refused. 9-Not Applicable-not attempted and the patient did not perform the activity before the current illness, exacerbation or injury. 10-Not Attempted due to Environmental Limitations-(lack of equipment, weather restraints, etc.). 88-Not Attempted due to Medical Conditions or Safety Concerns. sup to sit SBA, TRF bed to recliner with FWW CGA to SBA 6 ft Weight Bearing Full Weight Bearing Full Weight Bearing Assessment Current Status: Good Progress needs much encouragement and cajoling to participate PT Short Term Goals Short Term Goals Time Frame: Jul 16, 2021 Roll Left & Right: 6 Sit to lyin Lying to sitting on side of be: 4 Sit to stand: 4 (SBA) Chair/ofd-zn-lykqm transfer: 4 (SBA) Toilet transfer: 4 (SBA) Car transfer: 4 (SBA) Walk 10 feet: 4 Walk 50 feet with two turns: 4 1 step (curb): 4 (SBA) 4 steps: 3 Does pt use a wc or scooter: No Type: N/A PT Income Auditor Goals Longterm Goals PT Income Auditor Goals Time Frame: July 30, 2021 Roll Left & Right (QC): 6 Sit to Lying (QC): 6 Lying-Sitting on Side/Bed(QC): 6 Sit to Stand (QC): 6 Chair/Piy-rj-Rcmhe Xfer(QC): 6 Toilet Transfer (QC): 6 Car Transfer (QC): 6 Does the Patient Walk: Yes Walk 10 feet (QC): 6 Walk 50ft with 2 Turns (QC): 6 Walk 150 ft (QC): 6 Walking 10ft on Uneven Surface: 6 1 Step (curb) (QC): 6 4 Steps (QC): 6 12 Steps (QC): 9 Picking up an Object (QC): 6 Does the Pt use WC or Scooter?: Yes Wheel 50 feet with 2 turns (QC: 9 Type: Manual Wheel 150 feet: 9 Type: Manual PT Plan Treatment/Plan Treatment Plan: Continue Plan of Care Treatment Plan: Bed Mobility, Education, Functional Activity [place], Functional Strength, Group Therapy, Gait, Safety, Therapeutic Exercise, Transfers Treatment Duration: July 30, 2021 Frequency: At least 5 of 7 days/Wk (IRF) Estimated Hrs Per Day: 1.5 hours per day Patient and/or Family Agrees t: Yes Safety Risks/Education Patient Education: Transfer Techniques, Correct Positioning Response to Teaching: Reinforcement Needed Time/GCodes Time In: 1140 Time Out: 1155 Total Billed Treatment Time: 15 Total Billed Treatment 1,FA15m KALIA HSIEH SERVICE LIAISON REPRESENTATIVE Jul 13, 2021 11:56
[2021-07-13] MEDS ORDERED: metroNIDAZOLE 500 MG (FLAGYL) TAB PO NR (12:30)
[2021-07-13] MEDS ORDERED: metroNIDAZOLE 250 MG (FLAGYL) TAB PO NR (12:30)
--- NOTE | 2021-07-13 15:29 | Progress Note - Surgery ---
LYLEBRENDA Nubia 07/13/21 1529: Subjective Date Seen by a Provider: Jul 13, 2021 Time Seen by a Provider: 08:30 Subjective/Events-last exam Mr. Shannon is being followed for a wound in his RUQ with daily packing requirements. He denies pain, discharge, pruritus or redness. He reports it is changed and re-packed multiple times a day. He has minor discharge the inferior aspect of his abdominal incision. He complains of increased pain with his motta; this is being followed by medicine. He is still working daily with PT/OT. Review of Systems General: No Chills, No Fatigue Pulmonary: No Dyspnea, No Cough Cardiovascular: No: Chest Pain, Palpitations Gastrointestinal: No: Nausea, Vomiting, Abdominal Pain Genitourinary: Other ([place] irritation) Focused Exam Lactate Level 07/13/21 06:40: Lactic Acid Level 1.18 Objective Exam Vital Signs Date Time Temp Pulse Resp B/P (MAP) Pulse Ox O2 Delivery O2 Flow Rate FiO2 07/13/21 10:38 38.4 07/13/21 07:35 36.6 124 18 152/78 (102) 96 Room Air 07/12/21 20:30 94 Room Air 07/12/21 20:25 37.9 111 16 125/63 (83) 94 Room Air I & O 07/13/21 07:00 Intake Total 1450 ml Output Total 2100 ml Balance -650 ml Capillary Refill : General Appearance: No Apparent Distress, WD/WN, Chronically ill, Obese HEENT: PERRL/EOMI; No Scleral Icterus (L), No Scleral Icterus (R) Neck: Full Range of Motion, Normal Inspection, Non Tender, Supple Respiratory: Chest Non Tender, Lungs Clear, Normal Breath Sounds, No Accessory Muscle Use, No Respiratory Distress, Decreased Breath Sounds Cardiovascular: Regular Rate, Rhythm, No Edema, No Gallop, No Murmur, Normal Peripheral Pulses Peripheral Pulses: 2+ Radial Pulses (R), 2+ Radial Pulses (L) Gastrointestinal: normal bowel sounds, non tender, soft, other Extremity: Normal Inspection, Non Tender, No Pedal Edema Neurologic/Psychiatric: Alert, Oriented x3, No Motor/Sensory Deficits, Normal Mood/Affect Skin: Normal Color, Warm/Dry Lymphatic: No Adenopathy Results Lab Laboratory Tests 07/12/21 17:50: Urine Color ORANGE, Urine Clarity SL CLOUDY, Urine pH 7.5, Urine Specific Speculator 1.010L, Urine Protein 2+H, Urine Glucose (UA) NEGATIVE, Urine Ketones NEGATIVE, Urine Nitrite NEGATIVE, Urine Bilirubin NEGATIVE, Urine Urobilinogen 0.2, Urine Leukocyte Esterase 3+H, Urine RBC (Auto) 3+H, Urine RBC >100H, Urine WBC 50-100H, Urine Squamous Epithelial Cells NONE, Urine Renal Epithelial Cells NONE, Urine Crystals NONE, Urine Bacteria NEGATIVE, Urine Casts NONE, Urine Mucus SMALLH, Urine Trichomonas LARGEH, Urine Culture Indicated YES 07/13/21 06:40: White Blood Count 8.9, Red Blood Count 3.11L, Hemoglobin 8.0L, Hematocrit 26L, Mean Corpuscular Volume 85, Mean Corpuscular Hemoglobin 26, Mean Corpuscular Hemoglobin Concent 30L, Red Cell Distribution Width 17.9H, Platelet Count 424H, Mean Platelet Volume 8.2L, Immature Granulocyte % (Auto) 1, Neutrophils (%) (Auto) 73, Lymphocytes (%) (Auto) 12, Monocytes (%) (Auto) 12, Eosinophils (%) (Auto) 3, Basophils (%) (Auto) 0, Neutrophils # (Auto) 6.4, Lymphocytes # (Auto) 1.1, Monocytes # (Auto) 1.1H, Eosinophils # (Auto) 0.2, Basophils # (Auto) 0.0, Immature Granulocyte # (Auto) 0.1, Sodium Level 135, Potassium Level 4.0, Chloride Level 98, Carbon Dioxide Level 20L, Anion Gap 17H, Blood Urea Nitrogen 8, Creatinine 0.99, Estimat Glomerular Filtration Rate 93, BUN/Creatinine Ratio 8, Glucose Level 113H, Lactic Acid Level 1.18, Calcium Level 9.5, Corrected Calcium 10.1, Total Bilirubin 0.3, Aspartate Amino Transf (AST/SGOT) 22, Alanine Aminotransferase (ALT/SGPT) 29, Alkaline Phosphatase 75, Total Protein 7.5, Albumin 3.3, Procalcitonin 0.16H Assessment/Plan Assessment/Plan Assessment/Plan h/o rectal adenocarcinoma - extensive surgical history Open wound right upper abdomen - iodoform packing BID and PRN - no erythema, discharge, or pain UTI - managed by medicine Diminished ability of ADLs Decreased upper and lower extremity strength Anemia Hematuria Plan: Continue home medications Continue PT/OT Social work evaluation Monitor anemia. Trend Hgb. Repack RUQ wound BID or PRN Will sign off, call if needed ISSA GALVEZ DO 07/13/212216: Subjective Subjective/Events-last exam Patient with increasing pain with his Motta catheter. Having some blood in the urine coming out. He feels like he has a urinary tract infection again. Patient having fever. He is tolerating diet. He is having no problems with bowel issues. Patient wound in the right upper quadrant continues to be packed. The midline areas of scab are healing without complaints. Patient just not feeling completely good due to urinary tract infection. Denies sweats chills shortness of breath or chest pain at this time. Objective Exam General Appearance: Chronically ill, Obese HEENT: PERRL/EOMI, Normal ENT Inspection Neck: Normal Inspection, Non Tender, Supple Respiratory: Chest Non Tender, No Accessory Muscle Use, No Respiratory Distress Cardiovascular: Regular Rate, Rhythm, No JVD Gastrointestinal: non tender, soft, other (Right upper quadrant open wound no significant drainage, midline incision couple parts of the lower portion with scab over almost completely healed) Extremity: Normal Inspection, Non Tender Neurologic/Psychiatric: Alert, Oriented x3, No Motor/Sensory Deficits, Normal Mood/Affect Skin: Normal Color, Warm/Dry Lymphatic: No Adenopathy Assessment/Plan Assessment/Plan Assessment/Plan h/o rectal adenocarcinoma - extensive surgical history Open wound right upper abdomen - iodoform packing BID and PRN - no erythema, discharge, or pain UTI/Fever - managed by medicine -On Meropenem Diminished ability of ADLs Decreased upper and lower extremity strength Anemia Hematuria Continue home medications Continue PT/OT Diet as tolerates Monitor anemia. Trend Hgb. Repack RUQ wound BID and PRN Will sign off, call if needed Supervisory-Addendum Brief Verification & Attestation Participated in pt care: history, MDM, physical Personally performed: exam, history, MDM, supervision of care Care discussed with: Medical Student Procedures: n/a Results interpretation: Verified all documentation Verification and Attestation of Medical Student E/M Service A medical student performed and documented this service in my presence. I reviewed and verified all information documented by the medical student and made modifications to such information, when appropriate. I personally performed the physical exam and medical decision making. Issa Galvez, Jul 13, 2021,22:17 BRENDA LYLE Jul 13, 2021 15:29 ISSA GALVEZ DO Jul 13, 2021 22:17
[2021-07-13] MEDS: traZODone 50 MG (DESYREL) TAB PO SCH (20:57)
[2021-07-13] MEDS: VANCOMYCIN 1,750 MG/NS 500 ML IVPB IV SCH ×2 (20:58)
[2021-07-13] MEDS: LATANOPROST 0.005% (XALATAN) OPHTH SOLN 2.5 ML OS SCH (21:00)
[2021-07-13 21:47] VITALS: BP 127/59
[2021-07-14] MEDS: MEROPENEM 1,000 MG in NS (IVPB) 100 ML IV SCH ×3 (00:19→17:07)
--- NOTE | 2021-07-14 06:17 | PM&R Progress Note ---
Subjective HPI/CC On Admission Date Seen by Provider: Jul 14, 2021 Time Seen by Provider: 12:30 Subjective/Events-last exam 07/14/2021: Patient doing a lot better pass will be given for Friday No pain is reported Reviewed urine culture Reviewed labs 07/13/2021: Patient doing well Updated patient on trichomonas in his urine culture and he reports he has not had sexual relations for a long time I told him to discuss with his because co-treatment recommended Awaiting urine culture Lactic Acid level was normal 07/12/2021: Patient doing pretty well Walking around really well Thinks he has a UTI he feels like it I will check a urine sample Multiple antibiotics recently so if antibiotics needed we will have to do broad- spectrum 07/11/2021: Patient doing pretty well 2 small bowel movements today and refused laxatives Leg bag will be initiated for Motta Low-grade fever and Dr. Eaton will monitor only IV iron initiated 07/10/2021: Patient settling in well Worked with PT today No pain is reported until he moves He was able to eat a bit Profound weight loss since diagnosis August 2020 Labs reviewed Checking iron level Review of Systems General: Fatigue, Malaise Focused Exam Lactate Level 07/13/21 06:40: Lactic Acid Level 1.18 Objective Exam Vital Signs Vital Signs Date Time Temp Pulse Resp B/P (MAP) Pulse Ox O2 Delivery O2 Flow Rate FiO2 07/14/21 20:54 37.3 121 20 119/56 (77) 93 Room Air Capillary Refill : General Appearance: No Apparent Distress, WD/WN, Chronically ill, Obese HEENT: PERRL/EOMI, Normal ENT Inspection, Pharynx Normal Neck: Full Range of Motion, Normal Inspection, Non Tender, Supple, Carotid Bruit Respiratory: Chest Non Tender, Lungs Clear, Normal Breath Sounds, No Accessory Muscle Use, No Respiratory Distress, Decreased Breath Sounds Cardiovascular: Regular Rate, Rhythm, No Edema, No Gallop, No JVD, No Murmur, Normal Peripheral Pulses Gastrointestinal: Normal Bowel Sounds, No Organomegaly, No Pulsatile Mass, Soft, Tenderness Back: Normal Inspection, No CVA Tenderness, No Vertebral Tenderness Extremity: Normal Capillary Refill, Normal Inspection, Normal Range of Motion, Non Tender, No Calf Tenderness, No Pedal Edema Neurologic/Psychiatric: Alert, Oriented x3, No Motor/Sensory Deficits, Normal Mood/Affect, Depressed Affect Skin: Normal Color, Warm/Dry Lymphatic: No Adenopathy Results/Procedures Lab Patient resulted labs reviewed. FIM Transfers Therapy Code Descriptions/Definitions Functional [place] Measure: 0=Not Assessed/NA 4=Minimal Assistance 1=Total Assistance 5=Supervision or Setup 2=Maximal Assistance 6=Modified [place] 3=Moderate Assistance 7=Complete IndependenceSCALE: Activities may be completed with or without assistive devices. 4-Reljpruisa-ghzptsw completes the activity by him/herself with no assistance from a helper. 5-Set-up or Clean-up Assistance-helper sets up or cleans up; patient completes activity. [place] assists only prior to or following the activity. 4-Supervision or Touching Assistance-helper provides verbal cues and/or touching/steadying and/or contact guard assistance as patient completes activity. Assistance may be provided throughout the activity or intermittently. 3-Partial/Moderate Assistance-helper does LESS THAN HALF the effort. [place] lifts, holds or supports trunk or limbs, but provides less than half the effort. 2-Substantial/Maximal Assistance-helper does MORE THAN HALF the effort. [place] lifts or holds trunk or limbs and provides more than half the effort. 9-Zgmlkcrrf-xxfwiq does ALL the effort. Patient does none of the effort to complete the activity. Or, the assistance of 2 or more helpers is required for the patient to complete the activity. If activity was not attempted, code reason: 7-Patient Refused. 9-Not Applicable-not attempted and the patient did not perform the activity before the current illness, exacerbation or injury. 10-Not Attempted due to Environmental Limitations-(lack of equipment, weather restraints, etc.). 88-Not Attempted due to Medical Conditions or Safety Concerns. Roll Left to Right (QC): 6 Sit to Lying (QC): 6 Sit to Stand (QC): 4 Chair/Ric-ft-Bwlch Xfer(QC): 4 Car Transfer (QC): 4 (CGA) Gait Training Does the Patient Walk?: Yes Distance: 50' Walk 10 feet (QC): 4 Walk 50 ft with 2 Turns(QC): 4 Walk 150 ft (QC): 07 Walking 10ft/uneven surface-QC: 4 (CGA) Gait Persons Needed: 1 Gait Assistive Device: FWW Wheelchair Training Does the Pt Use a Wheelchair?: No Wheel 50 ft with 2 turns (QC): 1 Wheel 150 ft (QC): 1 Type of Wheelchair: N/A Stair Training #of Steps: 1 1 Step (curb) (QC): 4 4 Steps (QC): 88 12 Steps (QC): 88 Balance Picking up an Object (QC): 4 ADL-Treatment Eating (QC): 6 Oral Hygiene (QC): 5 Shower/Bathe Self (QC): 3 Upper Body Dressing (QC): 5 Lower Body Dressing (QC): 4 On/Off Footwear (QC): 1 Toileting Hygiene (QC): 1 (motta catheter) Toilet Transfer (QC): 4 Assessment/Plan Assessment and Plan Assess & Plan/Chief Complaint Assessment: Critical illness myopathy Rectal carcinoma August 2020 diagnosis status post radiation and chemotherapy Status post ileostomy takedown at Recent left-sided pneumothorax Recent left ureteral injury status post nephrostomy tube Bipolar disorder Intellectual delay Former smoker Hypertension Diabetes GERD Oral anticoagulation History of DVT UTI? Trichomonas status post 2000 mg of Flagyl x1 Plan: Inpatient rehab protocol Pain control Monitor labs Consult Dr. Eaton 07/10/21: Monitor fever Await B12 and iron level Supportive care 07/11/2021: IV iron infusion Supportive care 07/12/2021: Supportive care IV antibiotics Check labs in the morning 07/13/2021: IV antibiotics Await urine culture Treat trichomonas 07/14/2021: Supportive care IV antibiotics Day pass tomorrow (1) Rectal carcinoma (2) Hypertension (3) Intellectual delay (4) Weight loss (5) Nephrostomy status (6) Status post pneumothorax (7) Left ureteral injury (8) Former smoker (9) Anemia RADHA MCKAY DO Jul 14, 2021 06:17
[2021-07-14] MEDS: CYANOCOBALAMIN 1,000 MCG (VITAMIN B-12) TABLET PO SCH (06:22)
[2021-07-14 08:09] VITALS: BP 145/72
[2021-07-14] MEDS: FAMOTIDINE 20 MG (PEPCID) TABLET PO SCH ×2 (08:37→20:40)
[2021-07-14] MEDS: DULoxetine 30 MG (CYMBALTA) CAP PO SCH (08:37)
[2021-07-14] MEDS: TAMSULOSIN 0.4 MG (FLOMAX) CAP PO SCH (08:37)
[2021-07-14] MEDS: OXYBUTYNIN (DITROPAN) 5 MG TAB PO SCH ×2 (08:37→20:40)
[2021-07-14] MEDS: VITAMIN E 180 MG (400 UNITS) CAP PO SCH (08:37)
[2021-07-14] MEDS: OXcarbazepine (TRILEPTAL) 300 MG TAB PO SCH (08:37)
[2021-07-14] MEDS: SODIUM BICARBONATE 650 MG TABLET PO SCH ×3 (08:38→20:40)
[2021-07-14] MEDS: FERROUS SULF 325 MG (IRON) TAB PO SCH (08:38)
[2021-07-14] MEDS: KCL 20 MEQ TAB (K-DUR) PO SCH ×3 (08:38→17:04)
[2021-07-14] MEDS: APIXABAN 5 MG (ELIQUIS) TABLET PO SCH ×2 (08:38→20:40)
[2021-07-14] MEDS: SENNA W/DOCUSATE (SENOKOT S) TABLET PO SCH ×2 (08:48→19:28)
[2021-07-14] MEDS: DOCUSATE SODIUM 100 MG (COLACE) CAP PO SCH ×2 (08:48→19:28)
[2021-07-14] MEDS: polyethylene glycoL POWDER 17 GM (MIRALAX) PACK PO SCH ×2 (08:48→19:28)
[2021-07-14] MEDS: BRIMONIDINE 0.2% (ALPHAGAN) OPHTH SOLN 5 ML BTL OS SCH ×2 (08:49→20:41)
[2021-07-14] MEDS: TIMOLOL MALEATE 0.5% 5 ML (TIMOPTIC) BTL OS SCH ×2 (08:50→20:42)
--- NOTE | 2021-07-14 09:29 | Physical Therapy Daily Note ---
PT Daily Note-Current Subjective Pt. in bed, says "you aren't going to go away until I do something." Pt. finally agrees to ambulation after much therapist encouragement. Mental Status Patient Orientation: MR Attachments: IV Transfers SCALE: Activities may be completed with or without assistive devices. 3-Tkntjdxlcc-rszqzxl completes the activity by him/herself with no assistance from a helper. 5-Set-up or Clean-up Assistance-helper sets up or cleans up; patient completes activity. [place] assists only prior to or following the activity. 4-Supervision or Touching Assistance-helper provides verbal cues and/or touching/steadying and/or contact guard assistance as patient completes activity. Assistance may be provided throughout the activity or intermittently. 3-Partial/Moderate Assistance-helper does LESS THAN HALF the effort. [place] lifts, holds or supports trunk or limbs, but provides less than half the effort. 2-Substantial/Maximal Assistance-helper does MORE THAN HALF the effort. [place] lifts or holds trunk or limbs and provides more than half the effort. 5-Asxmkvgek-ophixb does ALL the effort. Patient does none of the effort to complete the activity. Or, the assistance of 2 or more helpers is required for the patient to complete the activity. If activity was not attempted, code reason: 7-Patient Refused. 9-Not Applicable-not attempted and the patient did not perform the activity before the current illness, exacerbation or injury. 10-Not Attempted due to Environmental Limitations-(lack of equipment, weather restraints, etc.). 88-Not Attempted due to Medical Conditions or Safety Concerns. Sit to Lying (QC): 6 Lying to Sitting/Side of Bed(Q: 6 Sit to Stand (QC): 4 Weight Bearing Full Weight Bearing Full Weight Bearing Gait Training Does the Patient Walk?: Yes Distance: 50 ft Gait Persons Needed: 1 Gait Assistive Device: FWW quick steps, no losses of balance Treatments gait training Assessment Current Status: Good Progress Pt. agrees to ambulation only after several minutes of therapist encouragement. He does very well with transfers and is steady with gait but difficult to participate with therapy. Pt. returned to bed with call light and all needs met. PT Short Term Goals Short Term Goals Time Frame: Jul 16, 2021 Roll Left & Right: 6 Sit to lyin Lying to sitting on side of be: 4 Sit to stand: 4 (SBA) Chair/zyd-ao-jyjvg transfer: 4 (SBA) Toilet transfer: 4 (SBA) Car transfer: 4 (SBA) Walk 10 feet: 4 Walk 50 feet with two turns: 4 1 step (curb): 4 (SBA) 4 steps: 3 Does pt use a wc or scooter: No Type: N/A PT Customer Energy Specialist Goals Customer Energy Specialist Goals PT Alf Goals Time Frame: July 30, 2021 Roll Left & Right (QC): 6 Sit to Lying (QC): 6 Lying-Sitting on Side/Bed(QC): 6 Sit to Stand (QC): 6 Chair/Hcn-sd-[place] Xfer(QC): 6 Toilet Transfer (QC): 6 Car Transfer (QC): 6 Does the Patient Walk: Yes Walk 10 feet (QC): 6 Walk 50ft with 2 Turns (QC): 6 Walk 150 ft (QC): 6 Walking 10ft on Uneven Surface: 6 1 Step (curb) (QC): 6 4 Steps (QC): 6 12 Steps (QC): 9 Picking up an Object (QC): 6 Does the Pt use WC or Scooter?: Yes Wheel 50 feet with 2 turns (QC: 9 Type: Manual Wheel 150 feet: 9 Type: Manual PT Plan Treatment/Plan Treatment Plan: Continue Plan of Care Treatment Plan: Bed Mobility, Education, Functional Activity [place], Functional Strength, Group Therapy, Gait, Safety, Therapeutic Exercise, Transfers Treatment Duration: July 30, 2021 Frequency: At least 5 of 7 days/Wk (IRF) Estimated Hrs Per Day: 1.5 hours per day Patient and/or Family Agrees t: Yes Time/GCodes Time In: 911 Time Out: 924 Total Billed Treatment Time: 13 Total Billed Treatment 1, GT 13' DELIO CORBIN PT Jul 14, 2021 09:29
[2021-07-14] MEDS: VANCOMYCIN 1,750 MG/NS 500 ML IVPB IV SCH ×4 (09:51→20:09)
[2021-07-14] MEDS: LACTOBACILLUS ACIDOPHILUS (PROBIOTIC) CAPSULE PO SCH ×3 (13:02→17:04)
[2021-07-14] MEDS ORDERED: TROUGH ORDER-PHARMACY XX NR (20:00)
[2021-07-14] MEDS: traZODone 50 MG (DESYREL) TAB PO SCH (20:40)
[2021-07-14] MEDS: LATANOPROST 0.005% (XALATAN) OPHTH SOLN 2.5 ML OS SCH (20:42)
[2021-07-14 20:54] VITALS: BP 119/56
[2021-07-15] MEDS: MEROPENEM 1,000 MG in NS (IVPB) 100 ML IV SCH ×2 (01:07→08:20)
--- NOTE | 2021-07-15 05:46 | PM&R Progress Note ---
Subjective HPI/CC On Admission Date Seen by Provider: Jul 15, 2021 Time Seen by Provider: 08:15 Subjective/Events-last exam 07/15/21: Patient doing well DC Meropenem Continue Vanc and repeat BCx Day pass today 07/14/2021: Patient doing a lot better Day pass will be given for Friday No pain is reported Reviewed urine culture Reviewed labs 07/13/2021: Patient doing well Updated patient on trichomonas in his urine culture and he reports he has not had sexual relations for a long time I told him to discuss with his because co-treatment recommended Awaiting urine culture Lactic Acid level was normal 07/12/2021: Patient doing pretty well Walking around really well Thinks he has a UTI he feels like it I will check a urine sample Multiple antibiotics recently so if antibiotics needed we will have to do broad- spectrum 07/11/2021: Patient doing pretty well 2 small bowel movements today and refused laxatives Leg bag will be initiated for Motta Low-grade fever and Dr. Eaton will monitor only IV iron initiated 07/10/2021: Patient settling in well Worked with PT today No pain is reported until he moves He was able to eat a bit Profound weight loss since diagnosis August 2020 Labs reviewed Checking iron level Review of Systems General: Fatigue, Malaise Focused Exam Lactate Level 07/13/21 06:40: Lactic Acid Level 1.18 Objective Exam Vital Signs Vital Signs Date Time Temp Pulse Resp B/P (MAP) Pulse Ox O2 Delivery O2 Flow Rate FiO2 07/15/21 09:59 Room Air 07/15/21 08:00 36.0 109 16 130/70 (90) 92 Capillary Refill : General Appearance: No Apparent Distress, WD/WN, Chronically ill, Obese HEENT: PERRL/EOMI, Normal ENT Inspection, Pharynx Normal Neck: Full Range of Motion, Normal Inspection, Non Tender, Supple, Carotid Bruit Respiratory: Chest Non Tender, Lungs Clear, Normal Breath Sounds, No Accessory Muscle Use, No Respiratory Distress, Decreased Breath Sounds Cardiovascular: Regular Rate, Rhythm, No Edema, No Gallop, No JVD, No Murmur, Normal Peripheral Pulses Gastrointestinal: Normal Bowel Sounds, No Organomegaly, No Pulsatile Mass, Soft, Tenderness Back: Normal Inspection, No CVA Tenderness, No Vertebral Tenderness Extremity: Normal Capillary Refill, Normal Inspection, Normal Range of Motion, Non Tender, No Calf Tenderness, No Pedal Edema Neurologic/Psychiatric: Alert, Oriented x3, No Motor/Sensory Deficits, Normal Mood/Affect, Depressed Affect Skin: Normal Color, Warm/Dry Lymphatic: No Adenopathy Results/Procedures Lab Laboratory Tests 07/15/21 05:45 Patient resulted labs reviewed. FIM Transfers Therapy Code Descriptions/Definitions Functional [place] Measure: 0=Not Assessed/NA 4=Minimal Assistance 1=Total Assistance 5=Supervision or Setup 2=Maximal Assistance 6=Modified [place] 3=Moderate Assistance 7=Complete IndependenceSCALE: Activities may be completed with or without assistive devices. 3-Vewvosprpn-aoojeig completes the activity by him/herself with no assistance from a helper. 5-Set-up or Clean-up Assistance-helper sets up or cleans up; patient completes activity. [place] assists only prior to or following the activity. 4-Supervision or Touching Assistance-helper provides verbal cues and/or touching/steadying and/or contact guard assistance as patient completes activity. Assistance may be provided throughout the activity or intermittently. 3-Partial/Moderate Assistance-helper does LESS THAN HALF the effort. [place] lifts, holds or supports trunk or limbs, but provides less than half the effort. 2-Substantial/Maximal Assistance-helper does MORE THAN HALF the effort. [place] l ifts or holds trunk or limbs and provides more than half the effort. 4-Geujnlrhn-skgrty does ALL the effort. Patient does none of the effort to complete the activity. Or, the assistance of 2 or more helpers is required for the patient to complete the activity. If activity was not attempted, code reason: 7-Patient Refused. 9-Not Applicable-not attempted and the patient did not perform the activity before the current illness, exacerbation or injury. 10-Not Attempted due to Environmental Limitations-(lack of equipment, weather restraints, etc.). 88-Not Attempted due to Medical Conditions or Safety Concerns. Roll Left to Right (QC): 6 Sit to Lying (QC): 6 Sit to Stand (QC): 4 Chair/Vnm-pd-Xqdyh Xfer(QC): 4 Car Transfer (QC): 4 (CGA) Gait Training Does the Patient Walk?: Yes Distance: 50 ft Walk 10 feet (QC): 4 Walk 50 ft with 2 Turns(QC): 4 Walk 150 ft (QC): 07 Walking 10ft/uneven surface-QC: 4 (CGA) Gait Persons Needed: 1 Gait Assistive Device: FWW Wheelchair Training Does the Pt Use a Wheelchair?: No Wheel 50 ft with 2 turns (QC): 1 Wheel 150 ft (QC): 1 Type of Wheelchair: N/A Stair Training #of Steps: 1 1 Step (curb) (QC): 4 4 Steps (QC): 88 12 Steps (QC): 88 Balance Picking up an Object (QC): 4 ADL-Treatment Eating (QC): 6 Oral Hygiene (QC): 5 Shower/Bathe Self (QC): 3 Upper Body Dressing (QC): 5 Lower Body Dressing (QC): 4 On/Off Footwear (QC): 1 Toileting Hygiene (QC): 1 (motta catheter) Toilet Transfer (QC): 4 Assessment/Plan Assessment and Plan Assess & Plan/Chief Complaint Assessment: Critical illness myopathy Rectal carcinoma August 2020 diagnosis status post radiation and chemotherapy Status post ileostomy takedown at Recent left-sided pneumothorax Recent left ureteral injury status post nephrostomy tube Bipolar disorder Intellectual delay Former smoker Hypertension Diabetes GERD Oral anticoagulation History of DVT UTI? Trichomonas status post 2000 mg of Flagyl x1 Plan: Inpatient rehab protocol Pain control Monitor labs Consult Dr. Eaton 07/10/21: Monitor fever Await B12 and iron level Supportive care 07/11/2021: IV iron infusion Supportive care 07/12/2021: Supportive care IV antibiotics Check labs in the morning 07/13/2021: IV antibiotics Await urine culture Treat trichomonas 07/14/2021: Supportive care IV antibiotics Day pass tomorrow 07/15/21: DC planned (1) Rectal carcinoma (2) Hypertension (3) Intellectual delay (4) Weight loss (5) Nephrostomy status (6) Status post pneumothorax (7) Left ureteral injury (8) Former smoker (9) Anemia RADHA MCKAY DO Jul 15, 2021 05:46
[2021-07-15 05:55] LABS: BASOPHILS % (AUTO) 0 % (0-10); EOSINOPHILS # (AUTO) 0.3 10^3/uL (0.0-0.3); EOSINOPHILS % (AUTO) 5 % (0-10); HEMATOCRIT 30 % (40-54); HEMOGLOBIN 8.9 g/dL (13.3-17.7); LYMPHOCYTES # (AUTO) 0.8 10^3/uL (1.0-4.0); LYMPHOCYTES % (AUTO) 13 % (12-44); MEAN CORPUSCULAR HEMOGLOBIN 26 pg (25-34); MEAN CORPUSCULAR HGB CONC 30 g/dL (32-36); MEAN CORPUSCULAR VOLUME 87 fL (80-99); MEAN PLATELET VOLUME 8.2 fL (9.0-12.2); MONOCYTES # (AUTO) 0.8 10^3/uL (0.0-1.0); MONOCYTES % (AUTO) 13 % (0-12); NEUTROPHILS # (AUTO) 4.2 10^3/uL (1.8-7.8); NEUTROPHILS % (AUTO) 67 % (42-75); PLATELET COUNT 328 10^3/uL (130-400); WHITE BLOOD COUNT 6.2 10^3/uL (4.3-11.0)
[2021-07-15] MEDS: CYANOCOBALAMIN 1,000 MCG (VITAMIN B-12) TABLET PO SCH (06:01)
[2021-07-15 06:12] LABS: ALBUMIN 3.1 GM/DL (3.2-4.5)
[2021-07-15 06:13] LABS: POTASSIUM 3.8 MMOL/L (3.6-5.0)
[2021-07-15 06:14] LABS: CALCIUM 9.5 MG/DL (8.5-10.1)
[2021-07-15 06:15] LABS: TOTAL PROTEIN 6.7 GM/DL (6.4-8.2)
[2021-07-15 06:17] LABS: BILIRUBIN,TOTAL 0.2 MG/DL (0.1-1.0)
[2021-07-15 06:19] LABS: CREATININE SERUM 0.93 MG/DL (0.60-1.30)
[2021-07-15] MEDS: IRON SUCROSE 200 MG/10 ML (VENOFER) VIAL IV SCH ×2 (07:48)
[2021-07-15 08:00] VITALS: BP 130/70
[2021-07-15] MEDS: FERROUS SULF 325 MG (IRON) TAB PO SCH (08:22)
[2021-07-15] MEDS: DULoxetine 30 MG (CYMBALTA) CAP PO SCH (08:22)
[2021-07-15] MEDS: VITAMIN E 180 MG (400 UNITS) CAP PO SCH (08:22)
[2021-07-15] MEDS: SODIUM BICARBONATE 650 MG TABLET PO SCH ×3 (08:22→20:50)
[2021-07-15] MEDS: TAMSULOSIN 0.4 MG (FLOMAX) CAP PO SCH (08:22)
[2021-07-15] MEDS: LACTOBACILLUS ACIDOPHILUS (PROBIOTIC) CAPSULE PO SCH ×3 (08:23→18:01)
[2021-07-15] MEDS: OXcarbazepine (TRILEPTAL) 300 MG TAB PO SCH (08:23)
[2021-07-15] MEDS: KCL 20 MEQ TAB (K-DUR) PO SCH ×3 (08:23→18:01)
[2021-07-15] MEDS: FAMOTIDINE 20 MG (PEPCID) TABLET PO SCH ×2 (08:23→20:50)
[2021-07-15] MEDS: OXYBUTYNIN (DITROPAN) 5 MG TAB PO SCH ×2 (08:23→20:50)
[2021-07-15] MEDS: APIXABAN 5 MG (ELIQUIS) TABLET PO SCH ×2 (08:23→20:50)
[2021-07-15] MEDS: TIMOLOL MALEATE 0.5% 5 ML (TIMOPTIC) BTL OS SCH ×2 (08:26→20:52)
[2021-07-15] MEDS: BRIMONIDINE 0.2% (ALPHAGAN) OPHTH SOLN 5 ML BTL OS SCH ×2 (08:26→20:52)
[2021-07-15] MEDS: SENNA W/DOCUSATE (SENOKOT S) TABLET PO SCH ×2 (08:44→19:26)
[2021-07-15] MEDS: DOCUSATE SODIUM 100 MG (COLACE) CAP PO SCH ×2 (08:44→19:25)
[2021-07-15] MEDS: polyethylene glycoL POWDER 17 GM (MIRALAX) PACK PO SCH ×2 (08:44→19:25)
[2021-07-15] MEDS ORDERED: TROUGH ORDER-PHARMACY XX NR (09:00)
[2021-07-15] MEDS: VANCOMYCIN 1,750 MG/NS 500 ML IVPB IV SCH ×2 (16:01)
[2021-07-15 19:29] VITALS: BP 124/58
[2021-07-15] MEDS: traZODone 50 MG (DESYREL) TAB PO SCH (20:50)
[2021-07-15] MEDS: LATANOPROST 0.005% (XALATAN) OPHTH SOLN 2.5 ML OS SCH (20:51)
--- NOTE | 2021-07-16 05:46 | PM&R Progress Note ---
Subjective HPI/CC On Admission Date Seen by Provider: Jul 16, 2021 Time Seen by Provider: 09:30 Subjective/Events-last exam 07/16/2021: Pt is doing well Overall feels like he is doing better Discharge is planned for 07/20 Vancomycin maintained 07/15/21: Patient doing well DC Meropenem Continue Vanc and repeat BCx Day pass today 07/14/2021: Patient doing a lot better Day pass will be given for Friday No pain is reported Reviewed urine culture Reviewed labs 07/13/2021: Patient doing well Updated patient on trichomonas in his urine culture and he reports he has not had sexual relations for a long time I told him to discuss with his because co-treatment recommended Awaiting urine culture Lactic Acid level was normal 07/12/2021: Patient doing pretty well Walking around really well Thinks he has a UTI he feels like it I will check a urine sample Multiple antibiotics recently so if antibiotics needed we will have to do broad- spectrum 07/11/2021: Patient doing pretty well 2 small bowel movements today and refused laxatives Leg bag will be initiated for [place] Low-grade fever and Dr. Eaton will monitor only IV iron initiated 07/10/2021: Patient settling in well Worked with PT today No pain is reported until he moves He was able to eat a bit Profound weight loss since diagnosis August 2020 Labs reviewed Checking iron level Review of Systems General: Fatigue, Malaise Gastrointestinal: Abdominal Pain Focused Exam Lactate Level Objective Exam Vital Signs Vital Signs Date Time Temp Pulse Resp B/P (MAP) Pulse Ox O2 Delivery O2 Flow Rate FiO2 07/16/21 20:20 Room Air 07/16/21 19:44 36.4 104 18 120/72 (88) 94 Capillary Refill : General Appearance: No Apparent Distress, WD/WN, Chronically ill, Obese HEENT: PERRL/EOMI, Normal ENT Inspection, Pharynx Normal Neck: Full Range of Motion, Normal Inspection, Non Tender, Supple, Carotid Bruit Respiratory: Chest Non Tender, Lungs Clear, Normal Breath Sounds, No Accessory Muscle Use, No Respiratory Distress, Decreased Breath Sounds Cardiovascular: Regular Rate, Rhythm, No Edema, No Gallop, No JVD, No Murmur, Normal Peripheral Pulses Gastrointestinal: Normal Bowel Sounds, No Organomegaly, No Pulsatile Mass, Soft, Tenderness Back: Normal Inspection, No CVA Tenderness, No Vertebral Tenderness Extremity: Normal Capillary Refill, Normal Inspection, Normal Range of Motion, Non Tender, No Calf Tenderness, No Pedal Edema Neurologic/Psychiatric: Alert, Oriented x3, No Motor/Sensory Deficits, Normal Mood/Affect, Depressed Affect Skin: Normal Color, Warm/Dry Lymphatic: No Adenopathy Results/Procedures Lab Patient resulted labs reviewed. FIM Transfers Therapy Code Descriptions/Definitions Functional [place] Measure: 0=Not Assessed/NA 4=Minimal Assistance 1=Total Assistance 5=Supervision or Setup 2=Maximal Assistance 6=Modified [place] 3=Moderate Assistance 7=Complete IndependenceSCALE: Activities may be completed with or without assistive devices. 0-Pfqouivfnm-ksmahbu completes the activity by him/herself with no assistance from a helper. 5-Set-up or Clean-up Assistance-helper sets up or cleans up; patient completes activity. [place] assists only prior to or following the activity. 4-Supervision or Touching Assistance-helper provides verbal cues and/or touching/steadying and/or contact guard assistance as patient completes activity. Assistance may be provided throughout the activity or intermittently. 3-Partial/Moderate Assistance-helper does LESS THAN HALF the effort. [place] lifts, holds or supports trunk or limbs, but provides less than half the effort. 2-Substantial/Maximal Assistance-helper does MORE THAN HALF the effort. [place] lifts or holds trunk or limbs and provides more than half the effort. 1-Wcibamlln-dnbxii does ALL the effort. Patient does none of the effort to complete the activity. Or, the assistance of 2 or more helpers is required for the patient to complete the activity. If activity was not attempted, code reason: 7-Patient Refused. 9-Not Applicable-not attempted and the patient did not perform the activity before the current illness, exacerbation or injury. 10-Not Attempted due to Environmental Limitations-(lack of equipment, weather restraints, etc.). 88-Not Attempted due to Medical Conditions or Safety Concerns. Roll Left to Right (QC): 6 Sit to Lying (QC): 6 Sit to Stand (QC): 4 Chair/Vfr-kg-Svbva Xfer(QC): 4 Car Transfer (QC): 4 (CGA) Gait Training Does the Patient Walk?: Yes Distance: 50 ft Walk 10 feet (QC): 4 Walk 50 ft with 2 Turns(QC): 4 Walk 150 ft (QC): 07 Walking 10ft/uneven surface-QC: 4 (CGA) Gait Persons Needed: 1 Gait Assistive Device: FWW Wheelchair Training Does the Pt Use a Wheelchair?: No Wheel 50 ft with 2 turns (QC): 1 Wheel 150 ft (QC): 1 Type of Wheelchair: N/A Stair Training #of Steps: 1 1 Step (curb) (QC): 4 4 Steps (QC): 88 12 Steps (QC): 88 Balance Picking up an Object (QC): 4 ADL-Treatment Eating (QC): 6 Oral Hygiene (QC): 5 Shower/Bathe Self (QC): 3 Upper Body Dressing (QC): 5 Lower Body Dressing (QC): 4 On/Off Footwear (QC): 1 Toileting Hygiene (QC): 1 (motta catheter) Toilet Transfer (QC): 4 Assessment/Plan Assessment and Plan Assess & Plan/Chief Complaint Assessment: Critical illness myopathy Rectal carcinoma August 2020 diagnosis status post radiation and chemotherapy Status post ileostomy takedown at Recent left-sided pneumothorax Recent left ureteral injury status post nephrostomy tube Bipolar disorder Intellectual delay Former smoker Hypertension Diabetes GERD Oral anticoagulation History of DVT UTI? Trichomonas status post 2000 mg of Flagyl x1 Plan: Inpatient rehab protocol Pain control Monitor labs Consult Dr. Eaton 07/10/21: Monitor fever Await B12 and iron level Supportive care 07/11/2021: IV iron infusion Supportive care 07/12/2021: Supportive care IV antibiotics Check labs in the morning 07/13/2021: IV antibiotics Await urine culture Treat trichomonas 07/14/2021: Supportive care IV antibiotics Day pass tomorrow 07/15/21: DC planned 07/16/2021: Supportive care Vancomycin Discharge 07/20/2021 (1) Rectal carcinoma (2) Hypertension (3) Intellectual delay (4) Weight loss (5) Nephrostomy status (6) Status post pneumothorax (7) Left ureteral injury (8) Former smoker (9) Anemia RADHA MCKAY DO Jul 16, 2021 05:45
[2021-07-16] MEDS: CYANOCOBALAMIN 1,000 MCG (VITAMIN B-12) TABLET PO SCH (06:13)
[2021-07-16 07:19] VITALS: BP 125/61
[2021-07-16] MEDS: DOCUSATE SODIUM 100 MG (COLACE) CAP PO SCH ×2 (07:21→19:44)
[2021-07-16] MEDS: polyethylene glycoL POWDER 17 GM (MIRALAX) PACK PO SCH ×2 (07:22→19:44)
[2021-07-16] MEDS: SENNA W/DOCUSATE (SENOKOT S) TABLET PO SCH ×2 (07:22→19:44)
[2021-07-16] MEDS: VITAMIN E 180 MG (400 UNITS) CAP PO SCH (07:58)
[2021-07-16] MEDS: KCL 20 MEQ TAB (K-DUR) PO SCH ×3 (07:58→18:03)
[2021-07-16] MEDS: LACTOBACILLUS ACIDOPHILUS (PROBIOTIC) CAPSULE PO SCH ×3 (07:58→18:03)
[2021-07-16] MEDS: APIXABAN 5 MG (ELIQUIS) TABLET PO SCH ×2 (07:59→20:09)
[2021-07-16] MEDS: FAMOTIDINE 20 MG (PEPCID) TABLET PO SCH ×2 (07:59→20:09)
[2021-07-16] MEDS: OXYBUTYNIN (DITROPAN) 5 MG TAB PO SCH ×2 (07:59→20:09)
[2021-07-16] MEDS: SODIUM BICARBONATE 650 MG TABLET PO SCH ×3 (07:59→20:09)
[2021-07-16] MEDS: FERROUS SULF 325 MG (IRON) TAB PO SCH (07:59)
[2021-07-16] MEDS: OXcarbazepine (TRILEPTAL) 300 MG TAB PO SCH (07:59)
[2021-07-16] MEDS: DULoxetine 30 MG (CYMBALTA) CAP PO SCH (07:59)
[2021-07-16] MEDS: TAMSULOSIN 0.4 MG (FLOMAX) CAP PO SCH (07:59)
[2021-07-16] MEDS: BRIMONIDINE 0.2% (ALPHAGAN) OPHTH SOLN 5 ML BTL OS SCH ×2 (08:02→20:08)
[2021-07-16] MEDS: TIMOLOL MALEATE 0.5% 5 ML (TIMOPTIC) BTL OS SCH ×2 (08:02→20:09)
--- NOTE | 2021-07-16 08:55 | Occupational Ther Daily Note ---
OT Current Status-Daily Note Subjective Pt denies pain, reports feeling good today. Appearance Pt returned to supine in bed per request. All needs within reach at OT departure. Mental Status/Objective Patient Orientation: Person, Place Attachments: Lama Catheter ADL-Treatment Therapy Code Descriptions/Definitions Functional [place] Measure: 0=Not Assessed/NA 4=Minimal Assistance 1=Total Assistance 5=Supervision or Setup 2=Maximal Assistance 6=Modified [place] 3=Moderate Assistance 7=Complete IndependenceSCALE: Activities may be completed with or without assistive devices. 6-Alnxdshleb-corjewf completes the activity by him/herself with no assistance from a helper. 5-Set-up or Clean-up Assistance-helper sets up or cleans up; patient completes activity. [place] assists only prior to or following the activity. 4-Supervision or Touching Assistance-helper provides verbal cues and/or touching/steadying and/or contact guard assistance as patient completes activity. Assistance may be provided throughout the activity or intermittently. 3-Partial/Moderate Assistance-helper does LESS THAN HALF the effort. [place] lifts, holds or supports trunk or limbs, but provides less than half the effort. 2-Substantial/Maximal Assistance-helper does MORE THAN HALF the effort. [place] lifts or holds trunk or limbs and provides more than half the effort. 6-Doprdpncw-uurwgg does ALL the effort. Patient does none of the effort to complete the activity. Or, the assistance of 2 or more helpers is required for the patient to complete the activity. If activity was not attempted, code reason: 7-Patient Refused. 9-Not Applicable-not attempted and the patient did not perform the activity before the current illness, exacerbation or injury. 10-Not Attempted due to Environmental Limitations-(lack of equipment, weather restraints, etc.). 88-Not Attempted due to Medical Conditions or Safety Concerns. Eating (QC): 6 Oral Hygiene (QC): 5 Toileting Hygiene (QC): 3 Toilet Transfer (QC): 4 Pt sitting on side of bed at OT arrival. He requests need to use toilet. Sit<>stand: SBA. Cues to slow down during positional changes. Speedy gait with use of walker. Pt able to lower/stand from toilet with use of grab bar and SBA. Cues to sit directly in front of toilet as pt attempts to sit sideways. Continent of bowels. Assist needed for latrell care after refusal to attempt. Pt able to retrieve pants from ankles and supervisor pullet farm hips with close supervision. Education provided on compensatory technique to reduce having to bend and fatigue with task. Pt verbalizes understanding but anticipate no follow through in future sessions. He declines changing his clothes as he reports donning new clothes previous date for day pass. He stood to wash face and comb hair and sat to brush teeth with set up assist. Other Treatment Pt participated in UE exercises with 2# dumbbell. Focus on improving strength and endurance needed for functional tasks. Good technique after initial instruction. Pt usually fatigues after ~8 reps but can finish remaining 2-4 reps with encouragement. Pt continues to need intermittent cues to not hold breath during exercises. Improves when pt cued to count reps out loud. 10-12 x1 all planes. Short rest breaks needed after 2-3 sets of exercises. While seated in chair, pt doffed 10 clothespins (x2) placed strategically on pant legs/shoes. Focus on improving flexibility, core strength, and endurance needed for LB bathing/dressing tasks. Pt needs encouragement to retrieve clothespins placed more distally. Education on compensatory techniques he could perform to assist in reaching. Pt able to retrieve all 10 (each leg x2) with rests breaks and encouragement, no physical assistance required. Education OT Patient Education: Correct positioning, Energy conservation, Exercise program, Modified ADL techniques, Progress toward Goal/Update tx plan, Purpose of tx/functional activities, Rehab process, Safety issues, Transfer techniques Teaching Recipient: Patient Teaching Methods: Demonstration, Discussion Response to Teaching: Verbalize Understanding, Return Demonstration, Reinforcement Needed OT Short Term Goals Short Term Goals Time Frame: Jul 20, 2021 Shower/bathe self: 3 Putting on/taking off footwear: 3 OT Mcfp Goals Mcfp Goals Time Frame: August 03, 2021 Eating (QC): 6 Oral Hygiene (QC): 6 Toileting Hygiene (QC): 4 Shower/Bathe Self (QC): 4 Upper Body Dressing (QC): 5 Lower Body Dressing (QC): 5 On/Off Footwear (QC): 5 Additional Goals: 1-Demonstrate ADL Tasks, 2-Verbalize Understanding, 3- ImproveStrength/[place] 1=Demonstrate adherence to instructed precautions during ADL tasks. 2=Patient will verbalize/demonstrate understanding of assistive devices/modifications for ADL. 3=Patient will improve strength/tolerance for activity to enable patient to perform ADL's. OT Education/Plan Problem List/Assessment Assessment: Decreased Activ Tolerance, Decreased Safety Aware, Decreased UE Strength, Impaired Cognition, Impaired Funct Balance, Impaired Self-Care Skills Discharge Recommendations Plan/Recommendations: Continue POC Treatment Plan/Plan of Care Treatment,Training & Education: Yes Patient would benefit from OT for education, treatment and training to promote independence in ADL's, mobility, safety and/or upper extremity function for ADL's. Plan of Care: ADL Retraining, Functional Mobility, Group Exercise/Act as Ind, UE Funct Exercise/Act Treatment Duration: August 03, 2021 Frequency: At least 5 of 7 days/Wk (IRF) Estimated Hrs Per Day: .25 hour per day Agreement: Yes Rehab Potential: Fair Time/GCodes Start Time: 07:40 Stop Time: 08:55 Total Time Billed (hr/min): 75 Billed Treatment Time 1 visit ADL x2 (25 min) EX x2 (30 min) FA (20 min) Beverly Santos OT Jul 16, 2021 08:55
--- NOTE | 2021-07-16 10:08 | Speech Therapy Daily Note ---
Speech Daily Progress Note Subjective Date Seen by Provider: Jul 16, 2021 Time Seen by Provider: 09:00 The patient was lying in bed, awake and alert upon entrance to his room by the clinician. The patient greeted the clinician appropriately and was agreeable to participation in the cognitive linguistic treatment session. Objective Orientation: The patient was oriented to month, day of week, date, and year with the use the in-room white board. No verbal cues were provided by the clinician to direct the patient to the visual aid. Functional Memory Tasks: The patient was read short paragraphs and asked questions immediately following (the paragraphs were read two times by request of the patient). The patient displayed 67% accuracy with moderate clinician verbal cueing. Assessment Assessment Current Status: Fair Progress Treatment Plan Continue Plan of Care Speech Short Term Goals Short Term Goals Short Term Goals 1. The patient will demonstrate appropriate use of external memory strategies with 90% accuracy and mild clinician verbal cueing. Time Frame-STG: One Week. Speech Nursing Home Goals Nursing Home Goals 1. The patient will demonstrate increased cognitive linguistic skills for safe discharge to the least restrictive environment. Time Frame: Two Weeks. Speech-Plan Treatment Plan Speech Therapy Treatment Plan: Continue Plan of Care Treatment Duration: Jul 10, 2021 Frequency: Modified Program (IRF) Estimated Hrs Per Day: Other Rehab Potential: Fair Safety Risks/Education Teaching Recipient: Patient Teaching Methods: Discussion Response to Teaching: Reinforcement Needed Education Topics Provided: External Memory Strategies Time Speech Therapy Time In: 09:00 Speech Therapy Time Out: 09:30 Total Billed Time: 30 Billed Treatment Time 1CASS[address] [facility] [facility] Jul 16, 2021 10:08
--- NOTE | 2021-07-16 11:02 | Physical Therapy Daily Note ---
PT Daily Note-Current Subjective Pt. needs some encouragement but eventually agreed to Rx. Pain Location: No Pain Reported Mental Status Patient Orientation: MR Attachments: Lama Catheter Transfers SCALE: Activities may be completed with or without assistive devices. 4-Wzvxctvjso-ibffcre completes the activity by him/herself with no assistance from a helper. 5-Set-up or Clean-up Assistance-helper sets up or cleans up; patient completes activity. [place] assists only prior to or following the activity. 4-Supervision or Touching Assistance-helper provides verbal cues and/or touching/steadying and/or contact guard assistance as patient completes activity. Assistance may be provided throughout the activity or intermittently. 3-Partial/Moderate Assistance-helper does LESS THAN HALF the effort. [place] lifts, holds or supports trunk or limbs, but provides less than half the effort. 2-Substantial/Maximal Assistance-helper does MORE THAN HALF the effort. [place] l ifts or holds trunk or limbs and provides more than half the effort. 2-Dyqghgafh-netyjg does ALL the effort. Patient does none of the effort to complete the activity. Or, the assistance of 2 or more helpers is required for the patient to complete the activity. If activity was not attempted, code reason: 7-Patient Refused. 9-Not Applicable-not attempted and the patient did not perform the activity before the current illness, exacerbation or injury. 10-Not Attempted due to Environmental Limitations-(lack of equipment, weather restraints, etc.). 88-Not Attempted due to Medical Conditions or Safety Concerns. Roll Left & Right (QC): 6 Sit to Lying (QC): 6 Lying to Sitting/Side of Bed(Q: 6 Sit to Stand (QC): 6 Chair/Njo-qs-Qquwm Xfer(QC): 6 Weight Bearing Full Weight Bearing Full Weight Bearing Gait Training Does the Patient Walk?: Yes Walk 10 feet (QC): 6 Walk 50 ft with 2 Turns(QC): 6 Walk 150 ft (QC): 6 Gait Persons Needed: 1 Gait Assistive Device: FWW pt. instructs this PARTS SALVAGER NOT to touch him during gait, belt is on and PARTS SALVAGER is ready to assist at any time, no LOB, good use of FWW Exercises Seated Therapy Exercises: Ankle pumps, Sit to stand, Long arc quads, Hip flexion, Hip abd/add Seated Reps: 12 NuStep Minutes: 8 NuStep Workload: 1 Treatments up in recliner with feet elevated after Rx Assessment Current Status: Good Progress PT Short Term Goals Short Term Goals Time Frame: Jul 16, 2021 Roll Left & Right: 6 Sit to lyin Lying to sitting on side of be: 4 Sit to stand: 4 (SBA) Chair/vqa-no-rdavd transfer: 4 (SBA) Toilet transfer: 4 (SBA) Car transfer: 4 (SBA) Walk 10 feet: 4 Walk 50 feet with two turns: 4 1 step (curb): 4 (SBA) 4 steps: 3 Does pt use a wc or scooter: No Type: N/A PT [facility]ist Goals [facility] Specialist Goals PT Prison Goals Time Frame: July 30, 2021 Roll Left & Right (QC): 6 Sit to Lying (QC): 6 Lying-Sitting on Side/Bed(QC): 6 Sit to Stand (QC): 6 Chair/Bcs-qy-Kuoin Xfer(QC): 6 Toilet Transfer (QC): 6 Car Transfer (QC): 6 Does the Patient Walk: Yes Walk 10 feet (QC): 6 Walk 50ft with 2 Turns (QC): 6 Walk 150 ft (QC): 6 Walking 10ft on Uneven Surface: 6 1 Step (curb) (QC): 6 4 Steps (QC): 6 12 Steps (QC): 9 Picking up an Object (QC): 6 Does the Pt use WC or Scooter?: Yes Wheel 50 feet with 2 turns (QC: 9 Type: Manual Wheel 150 feet: 9 Type: Manual PT Plan Treatment/Plan Treatment Plan: Continue Plan of Care Treatment Plan: Bed Mobility, Education, Functional Activity [place], Functional Strength, Group Therapy, Gait, Safety, Therapeutic Exercise, Transfers Treatment Duration: July 30, 2021 Frequency: At least 5 of 7 days/Wk (IRF) Estimated Hrs Per Day: 1.5 hours per day Patient and/or Family Agrees t: Yes Safety Risks/Education Patient Education: Gait Training, Transfer Techniques, Correct Positioning, Dis ease Process, Safety Issues Teaching Recipient: Patient Teaching Methods: Demonstration, Discussion Response to Teaching: Verbalize Understanding, Return Demonstration, Reinforcement Needed Time/GCodes Time In: 1000 Time Out: 1100 Total Billed Treatment Time: 60 Total Billed Treatment 1,GT15m,EX25m,FA20m KALIA HSIEH PARTS SALVAGER Jul 16, 2021 11:02
--- NOTE | 2021-07-16 13:02 | Physical Therapy Daily Note ---
PT Daily Note-Current Subjective Pt. agrees to Rx. No c/o Pain Location: No Pain Reported Mental Status Patient Orientation: MR Transfers SCALE: Activities may be completed with or without assistive devices. 9-Ruavdchqvb-fpshxzy completes the activity by him/herself with no assistance from a helper. 5-Set-up or Clean-up Assistance-helper sets up or cleans up; patient completes activity. [place] assists only prior to or following the activity. 4-Supervision or Touching Assistance-helper provides verbal cues and/or touching/steadying and/or contact guard assistance as patient completes activity. Assistance may be provided throughout the activity or intermittently. 3-Partial/Moderate Assistance-helper does LESS THAN HALF the effort. [place] lifts, holds or supports trunk or limbs, but provides less than half the effort. 2-Substantial/Maximal Assistance-helper does MORE THAN HALF the effort. [place] lifts or holds trunk or limbs and provides more than half the effort. 8-Ivnztqnsw-lemlpd does ALL the effort. Patient does none of the effort to complete the activity. Or, the assistance of 2 or more helpers is required for the patient to complete the activity. If activity was not attempted, code reason: 7-Patient Refused. 9-Not Applicable-not attempted and the patient did not perform the activity before the current illness, exacerbation or injury. 10-Not Attempted due to Environmental Limitations-(lack of equipment, weather restraints, etc.). 88-Not Attempted due to Medical Conditions or Safety Concerns. rolls left and right carefully but indep Weight Bearing Full Weight Bearing Full Weight Bearing Exercises Supine Ex: Ankle pumps, Quad Set, Rolling, Glut sets, Heel Slides, Scooting, Straight leg raise, Hip abd/add Supine Reps: 15 Assessment Current Status: Good Progress PT Short Term Goals Short Term Goals Time Frame: Jul 16, 2021 Roll Left & Right: 6 Sit to lyin Lying to sitting on side of be: 4 Sit to stand: 4 (SBA) Chair/qyv-dr-zodwr transfer: 4 (SBA) Toilet transfer: 4 (SBA) Car transfer: 4 (SBA) Walk 10 feet: 4 Walk 50 feet with two turns: 4 1 step (curb): 4 (SBA) 4 steps: 3 Does pt use a wc or scooter: No Type: N/A PT Reconstructive Dentist Goals Reconstructive Dentist Goals PT Group Home Goals Time Frame: July 30, 2021 Roll Left & Right (QC): 6 Sit to Lying (QC): 6 Lying-Sitting on Side/Bed(QC): 6 Sit to Stand (QC): 6 Chair/Fuk-lq-Chwqi Xfer(QC): 6 Toilet Transfer (QC): 6 Car Transfer (QC): 6 Does the Patient Walk: Yes Walk 10 feet (QC): 6 Walk 50ft with 2 Turns (QC): 6 Walk 150 ft (QC): 6 Walking 10ft on Uneven Surface: 6 1 Step (curb) (QC): 6 4 Steps (QC): 6 12 Steps (QC): 9 Picking up an Object (QC): 6 Does the Pt use WC or Scooter?: Yes Wheel 50 feet with 2 turns (QC: 9 Type: Manual Wheel 150 feet: 9 Type: Manual PT Plan Treatment/Plan Treatment Plan: Continue Plan of Care Treatment Plan: Bed Mobility, Education, Functional Activity [place], Functional Strength, Group Therapy, Gait, Safety, Therapeutic Exercise, Transfers Treatment Duration: July 30, 2021 Frequency: At least 5 of 7 days/Wk (IRF) Estimated Hrs Per Day: 1.5 hours per day Patient and/or Family Agrees t: Yes Safety Risks/Education Patient Education: Correct Positioning, Disease Process, Safety Issues Teaching Recipient: Patient Response to Teaching: Reinforcement Needed Time/GCodes Time In: 1245 Time Out: 1300 Total Billed Treatment Time: 15 Total Billed Treatment 1,EX15m KALIA HSIEH ELL TUTOR Jul 16, 2021 13:02
[2021-07-16] MEDS: VANCOMYCIN 1,750 MG/NS 500 ML IVPB IV SCH ×2 (16:23)
[2021-07-16 19:44] VITALS: BP 120/72
[2021-07-16] MEDS: traZODone 50 MG (DESYREL) TAB PO SCH (20:09)
[2021-07-16] MEDS: LATANOPROST 0.005% (XALATAN) OPHTH SOLN 2.5 ML OS SCH (20:10)
[2021-07-17] MEDS: CYANOCOBALAMIN 1,000 MCG (VITAMIN B-12) TABLET PO SCH (06:29)
--- NOTE | 2021-07-17 06:47 | PM&R Progress Note ---
Subjective HPI/CC On Admission Date Seen by Provider: Jul 17, 2021 Time Seen by Provider: 09:30 Subjective/Events-last exam 07/17/21: Pt is finished with antibiotics Vancomycin will be discontinued 4th dose of Venofer will be done Bowels moved today insists on going to [facility] [place], even though he is independent in everything 07/16/2021: Pt is doing well Overall feels like he is doing better Discharge is planned for 07/20 Vancomycin maintained 07/15/21: Patient doing well DC Meropenem Continue Vanc and repeat BCx Day pass today 07/14/2021: Patient doing a lot better Day pass will be given for Friday No pain is reported Reviewed urine culture Reviewed labs 07/13/2021: Patient doing well Updated patient on trichomonas in his urine culture and he reports he has not had sexual relations for a long time I told him to discuss with his because co-treatment recommended Awaiting urine culture Lactic Acid level was normal 07/12/2021: Patient doing pretty well Walking around really well Thinks he has a UTI he feels like it I will check a urine sample Multiple antibiotics recently so if antibiotics needed we will have to do broad- spectrum 07/11/2021: Patient doing pretty well 2 small bowel movements today and refused laxatives Leg bag will be initiated for Lama Low-grade fever and Dr. Eaton will monitor only IV iron initiated 07/10/2021: Patient settling in well Worked with PT today No pain is reported until he moves He was able to eat a bit Profound weight loss since diagnosis August 2020 Labs reviewed Checking iron level Review of Systems General: Fatigue, Malaise Objective Exam Vital Signs Vital Signs Date Time Temp Pulse Resp B/P (MAP) Pulse Ox O2 Delivery O2 Flow Rate FiO2 07/17/21 20:18 36.8 100 16 114/70 (85) 94 Room Air Capillary Refill : General Appearance: No Apparent Distress, WD/WN, Chronically ill, Obese HEENT: PERRL/EOMI, Normal ENT Inspection, Pharynx Normal Neck: Full Range of Motion, Normal Inspection, Non Tender, Supple, Carotid Bruit Respiratory: Chest Non Tender, Lungs Clear, Normal Breath Sounds, No Accessory Muscle Use, No Respiratory Distress, Decreased Breath Sounds Cardiovascular: Regular Rate, Rhythm, No Edema, No Gallop, No JVD, No Murmur, Normal Peripheral Pulses Gastrointestinal: Normal Bowel Sounds, No Organomegaly, No Pulsatile Mass, Soft, Tenderness Back: Normal Inspection, No CVA Tenderness, No Vertebral Tenderness Extremity: Normal Capillary Refill, Normal Inspection, Normal Range of Motion, Non Tender, No Calf Tenderness, No Pedal Edema Neurologic/Psychiatric: Alert, Oriented x3, No Motor/Sensory Deficits, Normal Mood/Affect, Depressed Affect Skin: Normal Color, Warm/Dry Lymphatic: No Adenopathy Results/Procedures Lab Patient resulted labs reviewed. [facility] Transfers Therapy Code Descriptions/Definitions Functional [place] Measure: 0=Not Assessed/NA 4=Minimal Assistance 1=Total Assistance 5=Supervision or Setup 2=Maximal Assistance 6=Modified [place] 3=Moderate Assistance 7=Complete IndependenceSCALE: Activities may be completed with or without assistive devices. 8-Nlvazrforf-ovitygp completes the activity by him/herself with no assistance from a helper. 5-Set-up or Clean-up Assistance-helper sets up or cleans up; patient completes activity. [place] assists only prior to or following the activity. 4-Supervision or Touching Assistance-helper provides verbal cues and/or touching/steadying and/or contact guard assistance as patient completes activity. Assistance may be provided throughout the activity or intermittently. 3-Partial/Moderate Assistance-helper does LESS THAN HALF the effort. [place] lifts, holds or supports trunk or limbs, but provides less than half the effort. 2-Substantial/Maximal Assistance-helper does MORE THAN HALF the effort. [place] lifts or holds trunk or limbs and provides more than half the effort. 5-Rpvskoxdn-vtuapx does ALL the effort. Patient does none of the effort to complete the activity. Or, the assistance of 2 or more helpers is required for the patient to complete the activity. If activity was not attempted, code reason: 7-Patient Refused. 9-Not Applicable-not attempted and the patient did not perform the activity before the current illness, exacerbation or injury. 10-Not Attempted due to Environmental Limitations-(lack of equipment, weather restraints, etc.). 88-Not Attempted due to Medical Conditions or Safety Concerns. Roll Left to Right (QC): 6 Sit to Lying (QC): 6 Sit to Stand (QC): 6 Chair/Xhm-ps-Plyql Xfer(QC): 6 Car Transfer (QC): 4 (CGA) Gait Training Does the Patient Walk?: Yes Distance: 50 ft Walk 10 feet (QC): 6 Walk 50 ft with 2 Turns(QC): 6 Walk 150 ft (QC): 6 Walking 10ft/uneven surface-QC: 4 (CGA) Gait Persons Needed: 1 Gait Assistive Device: FWW Wheelchair Training Does the Pt Use a Wheelchair?: No Wheel 50 ft with 2 turns (QC): 1 Wheel 150 ft (QC): 1 Type of Wheelchair: N/A Stair Training #of Steps: 1 1 Step (curb) (QC): 4 4 Steps (QC): 88 12 Steps (QC): 88 Balance Picking up an Object (QC): 4 ADL-Treatment Eating (QC): 6 Oral Hygiene (QC): 5 Shower/Bathe Self (QC): 3 Upper Body Dressing (QC): 5 Lower Body Dressing (QC): 4 On/Off Footwear (QC): 1 Toileting Hygiene (QC): 3 Toilet Transfer (QC): 4 Assessment/Plan Assessment and Plan Assess & Plan/Chief Complaint Assessment: Critical illness myopathy Rectal carcinoma August 2020 diagnosis status post radiation and chemotherapy Status post ileostomy takedown at Recent left-sided pneumothorax Recent left ureteral injury status post nephrostomy tube Bipolar disorder Intellectual delay Former smoker Hypertension Diabetes GERD Oral anticoagulation History of DVT UTI? Trichomonas status post 2000 mg of Flagyl x1 Plan: Inpatient rehab protocol Pain control Monitor labs Consult Dr. Eaton 07/10/21: Monitor fever Await B12 and iron level Supportive care 07/11/2021: IV iron infusion Supportive care 07/12/2021: Supportive care IV antibiotics Check labs in the morning 07/13/2021: IV antibiotics Await urine culture Treat trichomonas 07/14/2021: Supportive care IV antibiotics Day pass tomorrow 07/15/21: DC planned 07/16/2021: Supportive care Vancomycin Discharge 07/20/2021 07/17/21: Monitor closely DC to DC since can't take care of him (1) Rectal carcinoma (2) Hypertension (3) Intellectual delay (4) Weight loss (5) Nephrostomy status (6) Status post pneumothorax (7) Left ureteral injury (8) Former smoker (9) Anemia RADHA MCKAY DO Jul 17, 2021 06:47
[2021-07-17 08:00] VITALS: BP 132/65
--- NOTE | 2021-07-17 08:47 | Occupational Ther Daily Note ---
OT Current Status-Daily Note Subjective Pt denies pain but often moans throughout session. "This is a lot of hard work." Appearance Pt requested to return to bed, all needs within reach at therapy departure. Mental Status/Objective Patient Orientation: Person, Place, Situation ADL-Treatment Therapy Code Descriptions/Definitions Functional [place] Measure: 0=Not Assessed/NA 4=Minimal Assistance 1=Total Assistance 5=Supervision or Setup 2=Maximal Assistance 6=Modified [place] 3=Moderate Assistance 7=Complete IndependenceSCALE: Activities may be completed with or without assistive devices. 2-Ywmqmaoomg-twaadjb completes the activity by him/herself with no assistance from a helper. 5-Set-up or Clean-up Assistance-helper sets up or cleans up; patient completes activity. [place] assists only prior to or following the activity. 4-Supervision or Touching Assistance-helper provides verbal cues and/or touching/steadying and/or contact guard assistance as patient completes activity. Assistance may be provided throughout the activity or intermittently. 3-Partial/Moderate Assistance-helper does LESS THAN HALF the effort. [place] lifts, holds or supports trunk or limbs, but provides less than half the effort. 2-Substantial/Maximal Assistance-helper does MORE THAN HALF the effort. [place] lifts or holds trunk or limbs and provides more than half the effort. 5-Eikmykyhq-xqaepj does ALL the effort. Patient does none of the effort to com plete the activity. Or, the assistance of 2 or more helpers is required for the patient to complete the activity. If activity was not attempted, code reason: 7-Patient Refused. 9-Not Applicable-not attempted and the patient did not perform the activity before the current illness, exacerbation or injury. 10-Not Attempted due to Environmental Limitations-(lack of equipment, weather restraints, etc.). 88-Not Attempted due to Medical Conditions or Safety Concerns. Oral Hygiene (QC): 5 Lower Body Dressing (QC): 4 On/Off Footwear: 2 Toileting Hygiene (QC): 3 Toilet Transfer (QC): 4 Pt sleeping at OT arrival, easy to waken. Pt refuses shower, agreeable to complete tomorrow. He requires encouragement to change clothing, especially underwear. Pt declining to change shirt, reports he will do that tomorrow after shower. Prior to donning LB clothing, pt washed latrell area with set up assist. Min a for thoroughness when washing backside. LB clothing donned while seated EOB. With cues, pt able to pull legs up onto bed in order to thread into clothing. Supervision for safety as he stood to manage up to waist. OT donned keyon hose. Mod-max a needed to don socks after good effort given. Grooming tasks performed seated with set up. Pt continues to be speedy with positional changes and gait. Cues for safety. No LOB while ambulating around room. Other Treatment OT instructed pt on HEP with red theraband. After initial cue, pt able to perform each exercise to full range. He Continues to need cues for breathing as pt has tendency to hold breath. Improved initiation to count reps out loud this date. 12x1 all planes. Education OT Patient Education: Correct positioning, Energy conservation, Exercise program, Home exercise program, Modified ADL techniques, Progress toward Goal/Update tx plan, Purpose of tx/functional activities, Safety issues, Transfer techniques Teaching Recipient: Patient Teaching Methods: Demonstration, Discussion Response to Teaching: Verbalize Understanding, Return Demonstration, Reinforcement Needed OT Short Term Goals Short Term Goals Time Frame: Jul 20, 2021 Shower/bathe self: 3 Putting on/taking off footwear: 3 OT Prison Goals Prison Goals Time Frame: August 03, 2021 Eating (QC): 6 Oral Hygiene (QC): 6 Toileting Hygiene (QC): 4 Shower/Bathe Self (QC): 4 Upper Body Dressing (QC): 5 Lower Body Dressing (QC): 5 On/Off Footwear (QC): 5 Additional Goals: 1-Demonstrate ADL Tasks, 2-Verbalize Understanding, 3- ImproveStrength/Marco Antnoio 1=Demonstrate adherence to instructed precautions during ADL tasks. 2=Patient will verbalize/demonstrate understanding of assistive devices/modifications for ADL. 3=Patient will improve strength/tolerance for activity to enable patient to perform ADL's. OT Education/Plan Problem List/Assessment Assessment: Decreased Activ Tolerance, Decreased Safety Aware, Decreased UE Strength, Impaired Cognition, Impaired Self-Care Skills Discharge Recommendations Plan/Recommendations: Continue POC Treatment Plan/Plan of Care Treatment,Training & Education: Yes Patient would benefit from OT for education, treatment and training to promote independence in ADL's, mobility, safety and/or upper extremity function for AD L's. Plan of Care: ADL Retraining, Functional Mobility, Group Exercise/Act as Ind, UE Funct Exercise/Act Treatment Duration: August 03, 2021 Frequency: At least 5 of 7 days/Wk (IRF) Estimated Hrs Per Day: .25 hour per day Agreement: Yes Rehab Potential: Fair Time/GCodes Start Time: 07:40 Stop Time: 08:55 Total Time Billed (hr/min): 75 Billed Treatment Time 1 visit ADL x3 (40 min) EX x2 (35 min) Beverly Santos OT Jul 17, 2021 08:47
[2021-07-17] MEDS: DULoxetine 30 MG (CYMBALTA) CAP PO SCH (08:50)
[2021-07-17] MEDS: VITAMIN E 180 MG (400 UNITS) CAP PO SCH (08:50)
[2021-07-17] MEDS: SODIUM BICARBONATE 650 MG TABLET PO SCH ×3 (08:50→21:25)
[2021-07-17] MEDS: FAMOTIDINE 20 MG (PEPCID) TABLET PO SCH ×2 (08:51→21:25)
[2021-07-17] MEDS: TAMSULOSIN 0.4 MG (FLOMAX) CAP PO SCH (08:51)
[2021-07-17] MEDS: FERROUS SULF 325 MG (IRON) TAB PO SCH (08:51)
[2021-07-17] MEDS: LACTOBACILLUS ACIDOPHILUS (PROBIOTIC) CAPSULE PO SCH ×3 (08:51→17:34)
[2021-07-17] MEDS: APIXABAN 5 MG (ELIQUIS) TABLET PO SCH ×2 (08:52→21:25)
[2021-07-17] MEDS: OXYBUTYNIN (DITROPAN) 5 MG TAB PO SCH ×2 (08:52→21:25)
[2021-07-17] MEDS: OXcarbazepine (TRILEPTAL) 300 MG TAB PO SCH (08:52)
[2021-07-17] MEDS: IRON SUCROSE 200 MG/10 ML (VENOFER) VIAL IV SCH (08:54)
[2021-07-17] MEDS: BRIMONIDINE 0.2% (ALPHAGAN) OPHTH SOLN 5 ML BTL OS SCH ×2 (08:56→21:24)
[2021-07-17] MEDS: TIMOLOL MALEATE 0.5% 5 ML (TIMOPTIC) BTL OS SCH ×2 (08:56→21:24)
[2021-07-17] MEDS: polyethylene glycoL POWDER 17 GM (MIRALAX) PACK PO SCH ×2 (08:58→19:58)
[2021-07-17] MEDS: DOCUSATE SODIUM 100 MG (COLACE) CAP PO SCH ×2 (08:58→19:58)
[2021-07-17] MEDS: SENNA W/DOCUSATE (SENOKOT S) TABLET PO SCH ×2 (08:59→19:58)
[2021-07-17] MEDS: KCL 20 MEQ TAB (K-DUR) PO SCH ×3 (09:21→17:34)
--- NOTE | 2021-07-17 10:52 | Physical Therapy Daily Note ---
PT Daily Note-Current Subjective Pt. in bed upon arrival. Needs encouragement to participate and needs rest breaks frequently Pain Location: No Pain Reported Mental Status Patient Orientation: MR Attachments: Motta Catheter Transfers SCALE: Activities may be completed with or without assistive devices. 9-Clhmzfidwm-srlbdmo completes the activity by him/herself with no assistance from a helper. 5-Set-up or Clean-up Assistance-helper sets up or cleans up; patient completes activity. [place] assists only prior to or following the activity. 4-Supervision or Touching Assistance-helper provides verbal cues and/or touching/steadying and/or contact guard assistance as patient completes activity. Assistance may be provided throughout the activity or intermittently. 3-Partial/Moderate Assistance-helper does LESS THAN HALF the effort. [place] lifts, holds or supports trunk or limbs, but provides less than half the effort. 2-Substantial/Maximal Assistance-helper does MORE THAN HALF the effort. [place] lifts or holds trunk or limbs and provides more than half the effort. 3-Qjvhqaksj-xyyjxf does ALL the effort. Patient does none of the effort to complete the activity. Or, the assistance of 2 or more helpers is required for the patient to complete the activity. If activity was not attempted, code reason: 7-Patient Refused. 9-Not Applicable-not attempted and the patient did not perform the activity before the current illness, exacerbation or injury. 10-Not Attempted due to Environmental Limitations-(lack of equipment, weather restraints, etc.). 88-Not Attempted due to Medical Conditions or Safety Concerns. Roll Left & Right (QC): 6 Sit to Lying (QC): 6 Lying to Sitting/Side of Bed(Q: 6 Sit to Stand (QC): 6 Chair/Hbw-vt-Ehoww Xfer(QC): 6 Weight Bearing Full Weight Bearing Full Weight Bearing Gait Training Does the Patient Walk?: Yes Walk 10 feet (QC): 6 Walk 50 ft with 2 Turns(QC): 6 Walk 150 ft (QC): 6 Gait Persons Needed: 1 Gait Assistive Device: FWW pt. does not want therapist to have hand on gait belt, SBA is given throughout gait but pt. never loses balance or has incident Exercises Supine Ex: Rolling, Heel Slides, Hip abd/add Supine Reps: 10 Seated Therapy Exercises: Ankle pumps, Sit to stand, Long arc quads Seated Reps: 10 NuStep Minutes: 10 NuStep Workload: 1 Treatments max assist to sandra shoes and manage motta, TRFs in out bed and chair, gait 160 ft x 2, Nustep 10 m , seated and supine LE Ex Assessment Current Status: Good Progress PT Short Term Goals Short Term Goals Time Frame: Jul 16, 2021 Roll Left & Right: 6 Sit to lyin Lying to sitting on side of be: 4 Sit to stand: 4 (SBA) Chair/vmr-mj-wdwup transfer: 4 (SBA) Toilet transfer: 4 (SBA) Car transfer: 4 (SBA) Walk 10 feet: 4 Walk 50 feet with two turns: 4 1 step (curb): 4 (SBA) 4 steps: 3 Does pt use a wc or scooter: No Type: N/A PT Credit Administration Specialist Goals [facility] Goals PT [facility] Goals Time Frame: July 30, 2021 Roll Left & Right (QC): 6 Sit to Lying (QC): 6 Lying-Sitting on Side/Bed(QC): 6 Sit to Stand (QC): 6 Chair/Mvh-id-Ksarl Xfer(QC): 6 Toilet Transfer (QC): 6 Car Transfer (QC): 6 Does the Patient Walk: Yes Walk 10 feet (QC): 6 Walk 50ft with 2 Turns (QC): 6 Walk 150 ft (QC): 6 Walking 10ft on Uneven Surface: 6 1 Step (curb) (QC): 6 4 Steps (QC): 6 12 Steps (QC): 9 Picking up an Object (QC): 6 Does the Pt use WC or Scooter?: Yes Wheel 50 feet with 2 turns (QC: 9 Type: Manual Wheel 150 feet: 9 Type: Manual PT Plan Treatment/Plan Treatment Plan: Continue Plan of Care Treatment Plan: Bed Mobility, Education, Functional Activity Marco Antonio, Functional Strength, Group Therapy, Gait, Safety, Therapeutic Exercise, Transfers Treatment Duration: July 30, 2021 Frequency: At least 5 of 7 days/Wk (IRF) Estimated Hrs Per Day: 1.5 hours per day Patient and/or Family Agrees t: Yes Safety Risks/Education Patient Education: Correct Positioning, Safety Issues Teaching Recipient: Patient Teaching Methods: Demonstration, Discussion Response to Teaching: Verbalize Understanding, Return Demonstration, Rein forcement Needed Time/GCodes Time In: 1000 Time Out: 1100 Total Billed Treatment Time: 60 Total Billed Treatment 1,EX25m,FA15m,GT0m KALIA SHIEH CROWN CERAMIST Jul 17, 2021 10:52
--- NOTE | 2021-07-17 11:35 | Speech Therapy Daily Note ---
Speech Daily Progress Note Subjective Date Seen by Provider: Jul 17, 2021 Time Seen by Provider: 09:00 The patient was seated upright in bed, awake and alert upon entrance to his room by the clinician. The patient greeted the clinician appropriately and was agreeable to participation in the cognitive linguistic treatment session. Objective Orientation: The patient was oriented to month, day of week, and year, independently. With a verbal cue to direct his attention to the white board, the patient was able to identify the accurate year. Functional Memory Tasks: The patient was read short paragraphs and asked questions immediately following (the paragraphs were read two times by request of the patient). The patient displayed 60% accuracy (+9/15) with moderate clinician verbal cueing. Assessment Assessment Current Status: Fair Progress Treatment Plan Continue Plan of Care Speech Short Term Goals Short Term Goals Short Term Goals 1. The patient will demonstrate appropriate use of external memory strategies with 90% accuracy and mild clinician verbal cueing. Time Frame-STG: One Week. Speech Detention Goals Detention Goals 1. The patient will demonstrate increased cognitive linguistic skills for safe discharge to the least restrictive environment. Time Frame: Two Weeks. Speech-Plan Treatment Plan Speech Therapy Treatment Plan: Continue Plan of Care Treatment Duration: Jul 10, 2021 Frequency: Modified Program (IRF) Estimated Hrs Per Day: Other Rehab Potential: Fair Safety Risks/Education Teaching Recipient: Patient Teaching Methods: Discussion Response to Teaching: Reinforcement Needed Education Topics Provided: Functional Memory Strategies Time Speech Therapy Time In: 09:00 Speech Therapy Time Out: 09:30 Total Billed Time: 30 Billed Treatment Time CASSIA BuchananLachelleMANUEL ST Jul 17, 2021 11:35
--- NOTE | 2021-07-17 14:04 | Physical Therapy Daily Note ---
PT Daily Note-Current Subjective Pt. in bed, wants to stay in bed but agrees to U&L extr exercises. "Im working really hard you know " Pain Location: No Pain Reported Mental Status Patient Orientation: MR Attachments: Motta Catheter Transfers SCALE: Activities may be completed with or without assistive devices. 6-Crqohzcvpk-ajfamkf completes the activity by him/herself with no assistance from a helper. 5-Set-up or Clean-up Assistance-helper sets up or cleans up; patient completes activity. [place] assists only prior to or following the activity. 4-Supervision or Touching Assistance-helper provides verbal cues and/or touching/steadying and/or contact guard assistance as patient completes activity. Assistance may be provided throughout the activity or intermittently. 3-Partial/Moderate Assistance-helper does LESS THAN HALF the effort. [place] lifts, holds or supports trunk or limbs, but provides less than half the effort. 2-Substantial/Maximal Assistance-helper does MORE THAN HALF the effort. [place] lifts or holds trunk or limbs and provides more than half the effort. 7-Iyrbvyabo-deiyxz does ALL the effort. Patient does none of the effort to complete the activity. Or, the assistance of 2 or more helpers is required for the patient to complete the activity. If activity was not attempted, code reason: 7-Patient Refused. 9-Not Applicable-not attempted and the patient did not perform the activity before the current illness, exacerbation or injury. 10-Not Attempted due to Environmental Limitations-(lack of equipment, weather restraints, etc.). 88-Not Attempted due to Medical Conditions or Safety Concerns. Weight Bearing Full Weight Bearing Full Weight Bearing Exercises Supine Ex: Ankle pumps, Quad Set, Rolling, Glut sets, Heel Slides, Short Arc Quads, Scooting, Straight leg raise, Hip abd/add Supine Reps: 10 (x2) Assessment Current Status: Good Progress urine in motta conts blood tinged in color PT Short Term Goals Short Term Goals Time Frame: Jul 16, 2021 Roll Left & Right: 6 Sit to lyin Lying to sitting on side of be: 4 Sit to stand: 4 (SBA) Chair/ybw-yv-rdstm transfer: 4 (SBA) Toilet transfer: 4 (SBA) Car transfer: 4 (SBA) Walk 10 feet: 4 Walk 50 feet with two turns: 4 1 step (curb): 4 (SBA) 4 steps: 3 Does pt use a wc or scooter: No Type: N/A PT Assisted Goals Assisted Goals PT Assisted Goals Time Frame: July 30, 2021 Roll Left & Right (QC): 6 Sit to Lying (QC): 6 Lying-Sitting on Side/Bed(QC): 6 Sit to Stand (QC): 6 Chair/Ihu-tk-Fwyqw Xfer(QC): 6 Toilet Transfer (QC): 6 Car Transfer (QC): 6 Does the Patient Walk: Yes Walk 10 feet (QC): 6 Walk 50ft with 2 Turns (QC): 6 Walk 150 ft (QC): 6 Walking 10ft on Uneven Surface: 6 1 Step (curb) (QC): 6 4 Steps (QC): 6 12 Steps (QC): 9 Picking up an Object (QC): 6 Does the Pt use WC or Scooter?: Yes Wheel 50 feet with 2 turns (QC: 9 Type: Manual Wheel 150 feet: 9 Type: Manual PT Plan Treatment/Plan Treatment Plan: Continue Plan of Care Treatment Plan: Bed Mobility, Education, Functional Activity Marco Antonio, Functional Strength, Group Therapy, Gait, Safety, Therapeutic Exercise, Transfers Treatment Duration: July 30, 2021 Frequency: At least 5 of 7 days/Wk (IRF) Estimated Hrs Per Day: 1.5 hours per day Patient and/or Family Agrees t: Yes Time/GCodes Time In: 1345 Time Out: 1400 Total Billed Treatment Time: 15 Total Billed Treatment 1,EX15m KALIA HSIEH TRACK MAINTAINER Jul 17, 2021 14:04
[2021-07-17] MEDS ORDERED: TROUGH ORDER-PHARMACY XX ONE (15:00)
[2021-07-17] MEDS ORDERED: ACET-2267 PO (15:34)
[2021-07-17] MEDS ORDERED: OXYC5TAB PO (15:34)
[2021-07-17] MEDS ORDERED: LOPE2CAP PO (15:34)
[2021-07-17] MEDS ORDERED: OXCA600T10 PO (15:34)
[2021-07-17] MEDS ORDERED: ASCO-262 PO (15:34)
[2021-07-17 20:18] VITALS: BP 114/70
[2021-07-17] MEDS: LATANOPROST 0.005% (XALATAN) OPHTH SOLN 2.5 ML OS SCH (21:25)
[2021-07-17] MEDS: traZODone 50 MG (DESYREL) TAB PO SCH (21:25)
--- NOTE | 2021-07-18 06:35 | PM&R Progress Note ---
Subjective HPI/CC On Admission Date Seen by Provider: Jul 18, 2021 Time Seen by Provider: 09:30 Subjective/Events-last exam 07/17/21: Pt is finished with antibiotics Vancomycin will be discontinued 4th dose of Venofer will be done Bowels moved today insists on going to [facility], even though he is independent in everything 07/16/2021: Pt is doing well Overall feels like he is doing better Discharge is planned for 07/20 Vancomycin maintained 07/15/21: Patient doing well DC Meropenem Continue Vanc and repeat BCx Day pass today 07/14/2021: Patient doing a lot better Day pass will be given for Friday No pain is reported Reviewed urine culture Reviewed labs 07/13/2021: Patient doing well Updated patient on trichomonas in his urine culture and he reports he has not had sexual relations for a long time I told him to discuss with his because co-treatment recommended Awaiting urine culture Lactic Acid level was normal 07/12/2021: Patient doing pretty well Walking around really well Thinks he has a UTI he feels like it I will check a urine sample Multiple antibiotics recently so if antibiotics needed we will have to do broad- spectrum 07/11/2021: Patient doing pretty well 2 small bowel movements today and refused laxatives Leg bag will be initiated for [place] Low-grade fever and Dr. Eaton will monitor only IV iron initiated 07/10/2021: Patient settling in well Worked with PT today No pain is reported until he moves He was able to eat a bit Profound weight loss since diagnosis August 2020 Labs reviewed Checking iron level Objective Exam Vital Signs Vital Signs Date Time Temp Pulse Resp B/P (MAP) Pulse Ox O2 Delivery O2 Flow Rate FiO2 07/18/21 09:29 Room Air 07/18/21 08:00 37.3 108 18 128/75 (92) 92 Capillary Refill : General Appearance: No Apparent Distress, WD/WN, Chronically ill, Obese HEENT: PERRL/EOMI, Normal ENT Inspection, Pharynx Normal Neck: Full Range of Motion, Normal Inspection, Non Tender, Supple, Carotid Bruit Respiratory: Chest Non Tender, Lungs Clear, Normal Breath Sounds, No Accessory Muscle Use, No Respiratory Distress, Decreased Breath Sounds Cardiovascular: Regular Rate, Rhythm, No Edema, No Gallop, No JVD, No Murmur, Normal Peripheral Pulses Gastrointestinal: Normal Bowel Sounds, No Organomegaly, No Pulsatile Mass, Soft, Tenderness Back: Normal Inspection, No CVA Tenderness, No Vertebral Tenderness Extremity: Normal Capillary Refill, Normal Inspection, Normal Range of Motion, Non Tender, No Calf Tenderness, No Pedal Edema Neurologic/Psychiatric: Alert, Oriented x3, No Motor/Sensory Deficits, Normal Mood/Affect, Depressed Affect Skin: Normal Color, Warm/Dry Lymphatic: No Adenopathy Results/Procedures Lab Patient resulted labs reviewed. [facility]IM Transfers Therapy Code Descriptions/Definitions Functional [place] Measure: 0=Not Assessed/NA 4=Minimal Assistance 1=Total Assistance 5=Supervision or Setup 2=Maximal Assistance 6=Modified [place] 3=Moderate Assistance 7=Complete IndependenceSCALE: Activities may be completed with or without assistive devices. 2-Ekhbnhlukl-zkgpydl completes the activity by him/herself with no assistance from a helper. 5-Set-up or Clean-up Assistance-helper sets up or cleans up; patient completes activity. [place] assists only prior to or following the activity. 4-Supervision or Touching Assistance-helper provides verbal cues and/or touching/steadying and/or contact guard assistance as patient completes activity. Assistance may be provided throughout the activity or intermittently. 3-Partial/Moderate Assistance-helper does LESS THAN HALF the effort. [place] lifts, holds or supports trunk or limbs, but provides less than half the effort. 2-Substantial/Maximal Assistance-helper does MORE THAN HALF the effort. [place] lifts or holds trunk or limbs and provides more than half the effort. 3-Tunafhtnp-xsygra does ALL the effort. Patient does none of the effort to co mplete the activity. Or, the assistance of 2 or more helpers is required for the patient to complete the activity. If activity was not attempted, code reason: 7-Patient Refused. 9-Not Applicable-not attempted and the patient did not perform the activity before the current illness, exacerbation or injury. 10-Not Attempted due to Environmental Limitations-(lack of equipment, weather restraints, etc.). 88-Not Attempted due to Medical Conditions or Safety Concerns. Roll Left to Right (QC): 6 Sit to Lying (QC): 6 Sit to Stand (QC): 6 Chair/Pbd-en-Xxucv Xfer(QC): 6 Car Transfer (QC): 4 (CGA) Gait Training Does the Patient Walk?: Yes Distance: 50 ft Walk 10 feet (QC): 6 Walk 50 ft with 2 Turns(QC): 6 Walk 150 ft (QC): 6 Walking 10ft/uneven surface-QC: 4 (CGA) Gait Persons Needed: 1 Gait Assistive Device: FWW Wheelchair Training Does the Pt Use a Wheelchair?: No Wheel 50 ft with 2 turns (QC): 1 Wheel 150 ft (QC): 1 Type of Wheelchair: N/A Stair Training #of Steps: 1 1 Step (curb) (QC): 4 4 Steps (QC): 88 12 Steps (QC): 88 Balance Picking up an Object (QC): 4 ADL-Treatment Eating (QC): 6 Oral Hygiene (QC): 5 Shower/Bathe Self (QC): 3 Upper Body Dressing (QC): 5 Lower Body Dressing (QC): 4 On/Off Footwear (QC): 2 Toileting Hygiene (QC): 3 Toilet Transfer (QC): 4 Assessment/Plan Assessment and Plan Assess & Plan/Chief Complaint Assessment: Critical illness myopathy Rectal carcinoma August 2020 diagnosis status post radiation and chemotherapy Status post ileostomy takedown at Recent left-sided pneumothorax Recent left ureteral injury status post nephrostomy tube Bipolar disorder Intellectual delay Former smoker Hypertension Diabetes GERD Oral anticoagulation History of DVT UTI? Trichomonas status post 2000 mg of Flagyl x1 Plan: Inpatient rehab protocol Pain control Monitor labs Consult Dr. Eaton 07/10/21: Monitor fever Await B12 and iron level Supportive care 07/11/2021: IV iron infusion Supportive care 07/12/2021: Supportive care IV antibiotics Check labs in the morning 07/13/2021: IV antibiotics Await urine culture Treat trichomonas 07/14/2021: Supportive care IV antibiotics Day pass tomorrow 07/15/21: DC planned 07/16/2021: Supportive care Vancomycin Discharge 07/20/2021 07/17/21: Monitor closely DC to [facility] since can't take care of him (1) Rectal carcinoma (2) Hypertension (3) Intellectual delay (4) Weight loss (5) Nephrostomy status (6) Status post pneumothorax (7) Left ureteral injury (8) Former smoker (9) Anemia RADHA MCKAY DO Jul 18, 2021 06:35
[2021-07-18] MEDS: CYANOCOBALAMIN 1,000 MCG (VITAMIN B-12) TABLET PO SCH (06:40)
[2021-07-18 08:00] VITALS: BP 128/75
[2021-07-18] MEDS: LACTOBACILLUS ACIDOPHILUS (PROBIOTIC) CAPSULE PO SCH (08:32)
[2021-07-18] MEDS: FAMOTIDINE 20 MG (PEPCID) TABLET PO SCH (08:33)
[2021-07-18] MEDS: OXcarbazepine (TRILEPTAL) 300 MG TAB PO SCH (08:33)
[2021-07-18] MEDS: VITAMIN E 180 MG (400 UNITS) CAP PO SCH (08:33)
[2021-07-18] MEDS: OXYBUTYNIN (DITROPAN) 5 MG TAB PO SCH (08:34)
[2021-07-18] MEDS: DULoxetine 30 MG (CYMBALTA) CAP PO SCH (08:34)
[2021-07-18] MEDS: APIXABAN 5 MG (ELIQUIS) TABLET PO SCH (08:34)
[2021-07-18] MEDS: TAMSULOSIN 0.4 MG (FLOMAX) CAP PO SCH (08:34)
[2021-07-18] MEDS: KCL 20 MEQ TAB (K-DUR) PO SCH (08:37)
[2021-07-18] MEDS: SODIUM BICARBONATE 650 MG TABLET PO SCH (08:37)
[2021-07-18] MEDS: FERROUS SULF 325 MG (IRON) TAB PO SCH (08:37)
--- NOTE | 2021-07-18 08:38 | Speech Therapy Daily Note ---
Speech Daily Progress Note Subjective Date Seen by Provider: Jul 18, 2021 Time Seen by Provider: 09:00 The patient was lying in bed, awake and alert upon entrance to his room by the clinician. The patient greeted the clinician appropriately and was agreeable to participation in the cognitive linguistic treatment session. The patient does discuss frustration with his discharge date stating "I will need to share a room with someone there, it's an insurance thing or something." The clinician provided encouragement and support through active listening. Objective - Orientation: The patient remains oriented to month, day of week, and location. The patient stated the year was "2019," however, was able to state the accurate year with a verbal cue to use the in-room white board (visual cue). - Delayed Recall: The patient was provided five words and was asked to recall the five words in approximately five minutes. The patient and clinician practiced repetition as a recall tool (internal memory strategy). Following a five minute delay, the patient recalled five of five single words. The patient displayed improvement on this date, as he has been unable to complete this level of accuracy in the past. Assessment Assessment Current Status: Fair Progress Speech Short Term Goals Short Term Goals Short Term Goals 1. The patient will demonstrate appropriate use of external memory strategies with 90% accuracy and mild clinician verbal cueing. Time Frame-STG: One Week. Speech Payroll Associate Goals [facility] Goals 1. The patient will demonstrate increased cognitive linguistic skills for safe discharge to the least restrictive environment. Time Frame: Two Weeks. Speech-Plan Treatment Plan Speech Therapy Treatment Plan: Continue Plan of Care Treatment Duration: Jul 10, 2021 Frequency: Modified Program (IRF) Estimated Hrs Per Day: .5 hour per day Rehab Potential: Fair Pt/Family Agrees to Plan: Yes Safety Risks/Education Teaching Recipient: Patient Teaching Methods: Demonstration, Discussion Response to Teaching: Return Demonstration Education Topics Provided: Internal Memory Strategies Time Speech Therapy Time In: 09:00 Speech Therapy Time Out: 09:30 Total Billed Time: 30 Billed Treatment Time CASSIA Buchanan [facility] Jul 18, 2021 08:38
[2021-07-18] MEDS: TIMOLOL MALEATE 0.5% 5 ML (TIMOPTIC) BTL OS SCH (08:39)
[2021-07-18] MEDS: DOCUSATE SODIUM 100 MG (COLACE) CAP PO SCH (08:39)
[2021-07-18] MEDS: BRIMONIDINE 0.2% (ALPHAGAN) OPHTH SOLN 5 ML BTL OS SCH (08:39)
[2021-07-18] MEDS: polyethylene glycoL POWDER 17 GM (MIRALAX) PACK PO SCH (08:40)
[2021-07-18] MEDS: SENNA W/DOCUSATE (SENOKOT S) TABLET PO SCH (08:40)
--- NOTE | 2021-07-18 08:41 | Occupational Ther Daily Note ---
OT Current Status-Daily Note Subjective Pt denies pain, reports he is prepared to shower today. Appearance Pt returned to supine in bed in order for nursing to re-dress wounds. Mental Status/Objective Patient Orientation: Person, Place, Situation Attachments: Lama Catheter ADL-Treatment Therapy Code Descriptions/Definitions Functional [place] Measure: 0=Not Assessed/NA 4=Minimal Assistance 1=Total Assistance 5=Supervision or Setup 2=Maximal Assistance 6=Modified [place] 3=Moderate Assistance 7=Complete IndependenceSCALE: Activities may be completed with or without assistive devices. 6-Atgndqsfsh-qitsssp completes the activity by him/herself with no assistance from a helper. 5-Set-up or Clean-up Assistance-helper sets up or cleans up; patient completes activity. [place] assists only prior to or following the activity. 4-Supervision or Touching Assistance-helper provides verbal cues and/or touching/steadying and/or contact guard assistance as patient completes activity. Assistance may be provided throughout the activity or intermittently. 3-Partial/Moderate Assistance-helper does LESS THAN HALF the effort. [place] lifts, holds or supports trunk or limbs, but provides less than half the effort. 2-Substantial/Maximal Assistance-helper does MORE THAN HALF the effort. [place] l ifts or holds trunk or limbs and provides more than half the effort. 4-Cfxorjlyq-pputlr does ALL the effort. Patient does none of the effort to complete the activity. Or, the assistance of 2 or more helpers is required for the patient to complete the activity. If activity was not attempted, code reason: 7-Patient Refused. 9-Not Applicable-not attempted and the patient did not perform the activity before the current illness, exacerbation or injury. 10-Not Attempted due to Environmental Limitations-(lack of equipment, weather restraints, etc.). 88-Not Attempted due to Medical Conditions or Safety Concerns. Shower/Bathe Self (QC): 4 Upper Body Dressing (QC): 5 Lower Body Dressing (QC): 4 On/Off Footwear: 2 Toileting Hygiene (QC): 3 (min a for throughness post BM) Toilet Transfer (QC): 4 Shower performed; majority completed in sitting. Pt attempted washing buttocks and latrell area while seated but required cue to city planning teacher order to wash more thoroughly. Close supervision for safety as he stood. After effort exhibited, OT instructed pt to prop leg onto side of bench in order to better reach/wash feet. Post cue, pt able to perform independently. He sat on side of bench to don clothing. Again, cue needed to prop leg up onto bench in order to reach/thread foot into pant leg. Dependent to thread catheter bag. He stood with supervision as he pulled clothing up to waist. Max a to don socks secondary to fatigue and SOB after good effort given. Pt returned to supine in order for nurse to re- dress wounds. Education OT Patient Education: Correct positioning, Energy conservation, Modified ADL techniques, Progress toward Goal/Update tx plan, Purpose of tx/functional activities, Safety issues, Transfer techniques Teaching Recipient: Patient Teaching Methods: Demonstration, Discussion Response to Teaching: Verbalize Understanding, Return Demonstration, Reinforcement Needed OT Short Term Goals Short Term Goals Time Frame: Jul 20, 2021 Shower/bathe self: 3 Putting on/taking off footwear: 3 OT Brake Lining Finisher Goals Snf Goals Time Frame: August 03, 2021 Eating (QC): 6 Oral Hygiene (QC): 6 Toileting Hygiene (QC): 4 Shower/Bathe Self (QC): 4 Upper Body Dressing (QC): 5 Lower Body Dressing (QC): 5 On/Off Footwear (QC): 5 Additional Goals: 1-Demonstrate ADL Tasks, 2-Verbalize Understanding, 3- ImproveStrength/Marco Antonio 1=Demonstrate adherence to instructed precautions during ADL tasks. 2=Patient will verbalize/demonstrate understanding of assistive devices/modifications for ADL. 3=Patient will improve strength/tolerance for activity to enable patient to perform ADL's. OT Education/Plan Problem List/Assessment Assessment: Decreased Activ Tolerance, Decreased Safety Aware, Decreased UE Strength, Impaired Cognition, Impaired Funct Balance, Impaired Self-Care Skills Discharge Recommendations Plan/Recommendations: Continue POC Treatment Plan/Plan of Care Treatment,Training & Education: Yes Patient would benefit from OT for education, treatment and training to promote independence in ADL's, mobility, safety and/or upper extremity function for ADL's. Plan of Care: ADL Retraining, Functional Mobility, Group Exercise/Act as Ind, UE Funct Exercise/Act Treatment Duration: August 03, 2021 Frequency: At least 5 of 7 days/Wk (IRF) Estimated Hrs Per Day: .25 hour per day Agreement: Yes Rehab Potential: Fair Time/GCodes Start Time: 07:40 Stop Time: 08:43 Total Time Billed (hr/min): 60 Billed Treatment Time 1 visit ADL x4 Beverly Santos OT Jul 18, 2021 08:41
[2021-07-18] MEDS ORDERED: OXYB5TAB13 PO (10:48)
[2021-07-18] MEDS ORDERED: TRAM50TA3 PO (10:48)
[2021-07-18] MEDS ORDERED: DIPH1TAB PO (10:48)
[2021-07-18] MEDS ORDERED: DICL100G13 TOP (10:48)
[2021-07-18] MEDS ORDERED: TMSL.4C PO (10:48)
[2021-07-18] MEDS ORDERED: DULO30CA3 PO (10:48)
[2021-07-18] MEDS ORDERED: BRIM5DRO2 OS (10:48)
[2021-07-18] MEDS ORDERED: METH-732 PO (10:48)
[2021-07-18] MEDS ORDERED: HYOS0.1296 PO (10:48)
[2021-07-18] MEDS ORDERED: CYAN500T8 PO (10:48)
[2021-07-18] MEDS ORDERED: VITA-272 PO (10:48)
[2021-07-18] MEDS ORDERED: OXYC5TAB PO (10:48)
[2021-07-18] MEDS ORDERED: TIMO5DRO5 OS (10:48)
[2021-07-18] MEDS ORDERED: LOPE2CAP PO (10:48)
[2021-07-18] MEDS ORDERED: LATA2.5D19 OS (10:48)
[2021-07-18] MEDS ORDERED: APIX5TAB PO (10:48)
[2021-07-18] MEDS ORDERED: LACT1CAP7 PO (10:48)
[2021-07-18] MEDS ORDERED: POLY17PO54 PO (10:48)
[2021-07-18] MEDS ORDERED: ACET325T38 PO (10:48)
[2021-07-18] MEDS ORDERED: DOCU100C37 PO (10:48)
[2021-07-18] MEDS ORDERED: FERR325T18 PO (10:48)
[2021-07-18] MEDS ORDERED: OXCA300T18 PO (10:48)
[2021-07-18] MEDS ORDERED: TRZ50T PO (10:48)
[2021-07-18] MEDS ORDERED: OXCA600T10 PO (10:48)
[2021-07-18] MEDS ORDERED: NF-SODBICA PO (10:48)
[2021-07-18] MEDS ORDERED: MICO90PO TOP (10:48)
[2021-07-18] MEDS ORDERED: FAMO20TA3 PO (10:48)
[2021-07-18] MEDS ORDERED: POTA10TA37 PO (10:48)
[2021-07-18] MEDS ORDERED: ASCO-262 PO (10:48)
--- NOTE | 2021-07-18 10:49 | Physical Therapy Daily Note ---
PT Daily Note-Current Subjective Pt. initially agrees to x. During Rx it is discovered that pt. will be discharging today at or about 11am. This news upset pt and he was distracted. Pt.c/o about pain in his catheter, pt. c/o this frequently but never rates Pain Location: No Pain Reported Mental Status Patient Orientation: Person, Place, MR Attachments: Lama Catheter Transfers SCALE: Activities may be completed with or without assistive devices. 2-Cklltwfolp-ionvlii completes the activity by him/herself with no assistance from a helper. 5-Set-up or Clean-up Assistance-helper sets up or cleans up; patient completes activity. [place] assists only prior to or following the activity. 4-Supervision or Touching Assistance-helper provides verbal cues and/or touching/steadying and/or contact guard assistance as patient completes activity. Assistance may be provided throughout the activity or intermittently. 3-Partial/Moderate Assistance-helper does LESS THAN HALF the effort. [place] lifts, holds or supports trunk or limbs, but provides less than half the effort. 2-Substantial/Maximal Assistance-helper does MORE THAN HALF the effort. [place] lifts or holds trunk or limbs and provides more than half the effort. 5-Rcqrxyrmv-ohalqv does ALL the effort. Patient does none of the effort to complete the activity. Or, the assistance of 2 or more helpers is required for the patient to complete the activity. If activity was not attempted, code reason: 7-Patient Refused. 9-Not Applicable-not attempted and the patient did not perform the activity before the current illness, exacerbation or injury. 10-Not Attempted due to Environmental Limitations-(lack of equipment, weather restraints, etc.). 88-Not Attempted due to Medical Conditions or Safety Concerns. Roll Left & Right (QC): 6 Sit to Lying (QC): 6 Lying to Sitting/Side of Bed(Q: 6 Sit to Stand (QC): 6 Chair/Crj-wz-Xaqeo Xfer(QC): 6 Toilet Transfer (QC): 4 Car Transfer (QC): 4 Weight Bearing Full Weight Bearing Full Weight Bearing Gait Training Does the Patient Walk?: Yes Walk 10 feet (QC): 6 Walk 50 ft with 2 Turns(QC): 6 Walk 150 ft (QC): 6 Walking 10ft/uneven surface-QC: 4 Gait Persons Needed: 1 Gait Assistive Device: FWW pt. is adamant he does not want to be touched , at gait belt etc, however close near touch is maintained Stair Training #of Steps: 0 1 Step (curb) (QC): 4 4 Steps (QC): 88 12 Steps (QC): 88 Stairs: Pattern: Step to Exercises Supine Ex: Ankle pumps, Quad Set, Rolling, Glut sets, Heel Slides, Short Arc Quads, Scooting, Straight leg raise, Hip abd/add Supine Reps: 12 Assessment Current Status: Good Progress PT Short Term Goals Short Term Goals Time Frame: Jul 16, 2021 Roll Left & Right: 6 Sit to lyin Lying to sitting on side of be: 4 Sit to stand: 4 (SBA) Chair/fzl-bd-eyvhw transfer: 4 (SBA) Toilet transfer: 4 (SBA) Car transfer: 4 (SBA) Walk 10 feet: 4 Walk 50 feet with two turns: 4 1 step (curb): 4 (SBA) 4 steps: 3 Does pt use a wc or scooter: No Type: N/A PT Nursing Home Goals Nursing Home Goals PT Fire Production Operator Goals Time Frame: July 30, 2021 Roll Left & Right (QC): 6 Sit to Lying (QC): 6 Lying-Sitting on Side/Bed(QC): 6 Sit to Stand (QC): 6 Chair/Dwd-fi-Jaqqz Xfer(QC): 6 Toilet Transfer (QC): 6 Car Transfer (QC): 6 Does the Patient Walk: Yes Walk 10 feet (QC): 6 Walk 50ft with 2 Turns (QC): 6 Walk 150 ft (QC): 6 Walking 10ft on Uneven Surface: 6 1 Step (curb) (QC): 6 4 Steps (QC): 6 12 Steps (QC): 9 Picking up an Object (QC): 6 Does the Pt use WC or Scooter?: Yes Wheel 50 feet with 2 turns (QC: 9 Type: Manual Wheel 150 feet: 9 Type: Manual PT Plan Treatment/Plan Treatment Plan: Discontinue PT, goals met Treatment Plan: Bed Mobility, Education, Functional Activity Marco Antonio, Functional Strength, Group Therapy, Gait, Safety, Therapeutic Exercise, Transfers Treatment Duration: July 30, 2021 Frequency: At least 5 of 7 days/Wk (IRF) Estimated Hrs Per Day: 1.5 hours per day Patient and/or Family Agrees t: Yes Safety Risks/Education Patient Education: Gait Training, Transfer Techniques, Correct Positioning, Disease Process, Safety Issues Teaching Recipient: Patient Teaching Methods: Demonstration, Discussion Response to Teaching: Verbalize Understanding, Return Demonstration, Reinforcement Needed Time/GCodes Time In: 1000 Time Out: 1040 Total Billed Treatment Time: 40 Total Billed Treatment 1,GT15m,EX10m,FA15m KALIA HSIEH CLIENT SUPPORT ASSOCIATE Jul 18, 2021 10:49
--- NOTE | 2021-07-18 10:50 | Discharge Inst-Skilled Nursing ---
Discharge Inst-Skilled NF Reconcile Patient Problems Problems Reviewed?: Yes Patient Instructions Patient Problems: Iliostomy take down Goal: Return to independence Consult/Follow Up/Orders Follow Up Appt.: PCP 1 week Skilled NF Admit to: Certification (SNF) I certify that SNF services are required to be given on an inpatient basis because of the above named patient's need for correction care on a continuing basis for the conditions(s) for which he/she was receiving inpatient hospital services prior to his/her transfer to the SNF. Half-Way Facility Order: Nursing Services, Stock Feeder-Evaluate & Treat, Physical Therapy-Evaluate & Treat, Speech Language-Evaluate & Treat Oxygen Delivery Method: Room Air Discharge Diet: No Restrictions Daily Activity as Tolerated: Yes Resuscitation Status: Full Code New & Resume Previous Orders New Medications: Apixaban (Eliquis) 5 Mg Tablet 5 MG PO BID, #60 TAB Diclofenac Sodium (Diclofenac Sodium) 1 % Gel..gram. 0 GM TOP QID PRN for PAIN-MILD (1-4), #1 TUBE Duloxetine HCl (Cymbalta) 30 Mg Capsule.dr 90 MG PO DAILY, #30 CAP Hyoscyamine Sulfate (Oscimin) 0.125 Mg Tablet 0.125 MG PO Q4H PRN for CRAMPS, #20 TAB Lactobacillus Acidophilus/Pect (Acidophilus-Pectin Capsule) 75 Million Cell-100 Mg Capsule 2 EACH PO TIDWM, #30 CAP Methocarbamol (Methocarbamol) 750 Mg Tablet 750 MG PO BID PRN for SPASMS, #20 TAB Miconazole Nitrate (Lotrimin AF) 2 % Powder 0 GM TOP BID PRN for RASH, #1 EA Oxybutynin Chloride (Oxybutynin Chloride) 5 Mg Tablet 5 MG PO BID, #60 TAB Tamsulosin HCl (Flomax) 0.4 Mg Cap 0.4 MG PO DAILY, #30 CAP Continued Medications: Acetaminophen (Tylenol) 325 Mg Tablet 650 MG PO Q4H PRN for PAIN-MILD (1-4), #20 TAB (This prescription has been renewed) TAKES 2 (325MG) TAB Ascorbate Calcium (Vitamin C) 500 Mg Tablet 500 MG PO DAILY, #30 TAB (This prescription has been renewed) Brimonidine Tartrate (Alphagan P) 5 Ml Drops 1 DROP OS BID, #1 EA (This prescription has been renewed) Cyanocobalamin (Vitamin B-12) (Vitamin B-12) 500 Mcg Tablet 1000 MCG PO DAILY, #30 TAB (This prescription has been renewed) TAKES 2 (500MCG) TAB Diphenoxylate HCl/Atropine (Lomotil 2.5-0.025 mg Tablet) 1 Each Tablet 1 EACH PO Q12H PRN for DIARRHEA, #30 TAB (This prescription has been renewed) Docusate Sodium (Docusate Sodium) 100 Mg Capsule 100 MG PO BID, #30 CAP (This prescription has been renewed) Famotidine (Acid Microbiology Coordinator (FAMOTIDINE)) 20 Mg Tablet 20 MG PO BID, #60 TAB (This prescription has been renewed) Ferrous Sulfate (Ferrous Sulfate) 325 Mg Tablet 325 MG PO DAILY, #30 TAB (This prescription has been renewed) TAKE ON EMPTY STOMACH AT LEAST 1 HOUR BEFORE OR 2 HOURS BEFORE FOOD Latanoprost (Xalatan) 2.5 Ml Drops 1 DROP OS HS, #1 EA (This prescription has been renewed) Loperamide HCl (Loperamide) 2 Mg Capsule 2-4 MG PO UD PRN for DIARRHEA, #20 CAP (This prescription has been renewed) Oxcarbazepine (Oxcarbazepine) 300 Mg Tablet 900 MG PO DAILY, #30 TAB (This prescription has been renewed) TAKES 3 (300MG) TAB Oxcarbazepine (Oxcarbazepine) 600 Mg Tablet 600 MG PO HS, #30 TAB (This prescription has been renewed) Oxycodone HCl (Oxycodone HCl) 5 Mg Tablet 5 MG PO Q4H PRN for PAIN-SEVERE (8-10), #20 TAB (This prescription has been renewed) Polyethylene Glycol 3350 (Polyethylene Glycol 3350) 17 Gm Powd.pack 17 GM PO DAILY PRN for CONSTIPATION-2ND LINE, #1 EACH (This prescription has been renewed) Potassium Chloride (Potassium Chloride) 10 Meq Tab.er.prt 10 MEQ PO DAILY, #30 EA (This prescription has been renewed) Sodium Bicarbonate (Sodium Bicarbonate) 650 Mg Tablet 650 MG PO TID, #90 TAB (This prescription has been renewed) Timolol Maleate (Timolol Maleate 0.5%) 5 Ml Drops 1 DROP OS BID, #1 EA (This prescription has been renewed) Tramadol HCl (Tramadol HCl) 50 Mg Tablet 50 MG PO Q8H PRN for PAIN-MODERATE (5-7), #30 TAB (This prescription has been renewed) Trazodone HCl (Trazodone HCl) 50 Mg Tablet 50 MG PO HS, #30 TAB (This prescription has been renewed) Vitamin E Mixed (Vitamin E) 400 Unit Capsule 400 UNIT PO DAILY, #30 CAP (This prescription has been renewed) Discontinued Medications: Acetaminophen (Tylenol Extra Strength) 500 Mg Tablet 500-1000 MG PO Q6H PRN for PAIN-MILD (1-4), TAB Arginine (Arginine) 500 Mg Tablet 500 MG PO DAILY, TAB Duloxetine HCl (Duloxetine HCl) 60 Mg Capsule.dr 60 MG PO DAILY, CAP TAKES WITH (30MG) CAPS TO TOTAL 90MG Duloxetine HCl (Duloxetine HCl) 30 Mg Capsule.dr 30 MG PO DAILY, CAP TAKES WITH (60MG) CAP TO TOTAL 90MG Glucagon HCl (Glucagon Emergency Kit) 1 Mg Vial 1 MG IJ ONCE PRN for HYPOGLYCEMIA, MATTHEW Wright Jul 18, 2021 10:49 RADHA WRIGHT DO Jul 18, 2021 10:50
--- NOTE | 2021-07-18 10:51 | Discharge Summary ---
Diagnosis/Chief Complaint Date of Admission Jul 09, 2021 at 13:50 Date of Discharge Discharge Date: Jul 18, 2021 Discharge Diagnosis Assessment: Critical illness myopathy Rectal carcinoma August 2020 diagnosis status post radiation and chemotherapy Status post ileostomy takedown at Recent left-sided pneumothorax Recent left ureteral injury status post nephrostomy tube Bipolar disorder Intellectual delay Former smoker Hypertension Diabetes GERD Oral anticoagulation History of DVT UTI? Trichomonas status post 2000 mg of Flagyl x1 Plan: Inpatient rehab protocol Pain control Monitor labs Consult Dr. Eaton 07/10/21: Monitor fever Await B12 and iron level Supportive care 07/11/2021: IV iron infusion Supportive care 07/12/2021: Supportive care IV antibiotics Check labs in the morning 07/13/2021: IV antibiotics Await urine culture Treat trichomonas 07/14/2021: Supportive care IV antibiotics Day pass tomorrow 07/15/21: DC planned 07/16/2021: Supportive care Vancomycin Discharge 07/20/2021 07/17/21: Monitor closely DC to [facility] since can't take care of him (1) Rectal carcinoma (2) Hypertension (3) Intellectual delay (4) Weight loss (5) Nephrostomy status (6) Status post pneumothorax (7) Left ureteral injury (8) Former smoker (9) Anemia Discharge Summary Discharge Physical Examination Allergies: Coded Allergies: Penicillins (Verified Allergy, Unknown, RASH, 07/09/21) Per records (07/09/21) has tolerated amoxicillin and piperacillin/tazobactam. Vitals & I&Os Vital Signs Date Time Temp Pulse Resp B/P (MAP) Pulse Ox O2 Delivery O2 Flow Rate FiO2 07/18/21 13:20 37.3 108 18 128/75 92 Room Air General Appearance: Alert, Oriented X3, Cooperative Respiratory: Clear to Auscultation Cardiovascular: Regular Rate Neuro: Normal Gait, Normal Speech, Strength at 5/5 X4 Ext Psych/Mental Status: Mental Status NL Hospital Course Was the Problem List Reviewed?: Yes Pt had an uneventful hospital course for 10 days after he returned back from . He was managed by general surgery after the ileostomy take down. Wound care was maintained with packing of the wound. Overall he did very well. He did a complete round of powerful antibiotics. Trichomonas was noted on urine that was treated with 2g of Flagyl PO x1. Overall he did very well. Labs remain stable, but could not take care of him at home so he went to skilled care at [facility]. Labs (last 24 hrs) Laboratory Tests 07/09/21 13:50: Lab Scanned Report Referred Lab Report 07/10/21 06:00: White Blood Count 9.7, Red Blood Count 2.87L, Hemoglobin 7.5L, Hematocrit 24L, Mean Corpuscular Volume 85, Mean Corpuscular Hemoglobin 26, Mean Corpuscular Hemoglobin Concent 31L, Red Cell Distribution Width 17.6H, Platelet Count 379, Mean Platelet Volume 8.4L, Immature Granulocyte % (Auto) 1, Neutrophils (%) (Auto) 72, Lymphocytes (%) (Auto) 10L, Monocytes (%) (Auto) 16H, Eosinophils (%) (Auto) 2, Basophils (%) (Auto) 0, Neutrophils # (Auto) 6.9, Lymphocytes # (Auto) 0.9L, Monocytes # (Auto) 1.6H, Eosinophils # (Auto) 0.2, Basophils # (Auto) 0.0, Immature Granulocyte # (Auto) 0.1, Sodium Level 137, Potassium Level 3.4L, Chloride Level 100, Carbon Dioxide Level 22, Anion Gap 15H, Blood Urea Nitrogen 10, Creatinine 0.92, Estimat Glomerular Filtration Rate 102, BUN/Creatinine Ratio 11, Glucose Level 116H, Calcium Level 9.0, Corrected Calcium 9.7, Total Bilirubin 0.3, Aspartate Amino Transf (AST/SGOT) 16, Alanine Aminotransferase (ALT/SGPT) 22, Alkaline Phosphatase 62, Total Protein 6.8, Albumin 3.1L, Procalcitonin 0.17H 07/10/21 10:45: Iron Level 31L, Vitamin B12 Level 614 07/12/21 14:43: White Blood Count 7.2, Red Blood Count 2.84L, Hemoglobin 7.3L, Hematocrit 24L, Mean Corpuscular Volume 85, Mean Corpuscular Hemoglobin 26, Mean Corpuscular Hemoglobin Concent 30L, Red Cell Distribution Width 17.5H, Platelet Count 352, Mean Platelet Volume 8.4L, Immature Granulocyte % (Auto) 1, Neutrophils (%) (Auto) 70, Lymphocytes (%) (Auto) 11L, Monocytes (%) (Auto) 14H, Eosinophils (%) (Auto) 5, Basophils (%) (Auto) 0, Neutrophils # (Auto) 5.0, Lymphocytes # (Auto) 0.8L, Monocytes # (Auto) 1.0, Eosinophils # (Auto) 0.3, Basophils # (Auto) 0.0, Immature Granulocyte # (Auto) 0.1, Sodium Level 136, Potassium Level 4.1, C hloride Level 99, Carbon Dioxide Level 25, Anion Gap 12, Blood Urea Nitrogen 10, Creatinine 0.91, Estimat Glomerular Filtration Rate 103, BUN/Creatinine Ratio 11, Glucose Level 122H, Calcium Level 9.1, Corrected Calcium 9.8, Total Bili redman 0.2, Aspartate Amino Transf (AST/SGOT) 36H, Alanine Aminotransferase (ALT/SGPT) 37, Alkaline Phosphatase 75, Total Protein 6.7, Albumin 3.1L, Procalcitonin 0.15H 07/12/21 17:50: Urine Color ORANGE, Urine Clarity SL CLOUDY, Urine pH 7.5, Urine Specific Hamilton 1.010L, Urine Protein 2+H, Urine Glucose (UA) NEGATIVE, Urine Ketones NEGATIVE, Urine Nitrite NEGATIVE, Urine Bilirubin NEGATIVE, Urine Urobilinogen 0.2, Urine Leukocyte Esterase 3+H, Urine RBC (Auto) 3+H, Urine RBC >100H, Urine WBC 50-100H, Urine Squamous Epithelial Cells NONE, Urine Renal Epithelial Cells NONE, Urine Crystals NONE, Urine Bacteria NEGATIVE, Urine Casts NONE, Urine Mucus SMALLH, Urine Trichomonas LARGEH, Urine Culture Indicated YES 07/13/21 06:40: White Blood Count 8.9, Red Blood Count 3.11L, Hemoglobin 8.0L, Hematocrit 26L, Mean Corpuscular Volume 85, Mean Corpuscular Hemoglobin 26, Mean Corpuscular Hemoglobin Concent 30L, Red Cell Distribution Width 17.9H, Platelet Count 424H, Mean Platelet Volume 8.2L, Immature Granulocyte % (Auto) 1, Neutrophils (%) (Auto) 73, Lymphocytes (%) (Auto) 12, Monocytes (%) (Auto) 12, Eosinophils (%) (Auto) 3, Basophils (%) (Auto) 0, Neutrophils # (Auto) 6.4, Lymphocytes # (Auto) 1.1, Monocytes # (Auto) 1.1H, Eosinophils # (Auto) 0.2, Basophils # (Auto) 0.0, Immature Granulocyte # (Auto) 0.1, Sodium Level 135, Potassium Level 4.0, Chloride Level 98, Carbon Dioxide Level 20L, Anion Gap 17H, Blood Urea Nitrogen 8, Creatinine 0.99, Estimat Glomerular Filtration Rate 93, BUN/Creatinine Ratio 8, Glucose Level 113H, Lactic Acid Level 1.18, Calcium Level 9.5, Corrected Calcium 10.1, Total Bilirubin 0.3, Aspartate Amino Transf (AST/SGOT) 22, Alanine Aminotransferase (ALT/SGPT) 29, Alkaline Phosphatase 75, Total Protein 7.5, Albumin 3.3, Procalcitonin 0.16H 07/14/21 19:35: Vancomycin Level Trough 36.0*H 07/15/21 05:45: White Blood Count 6.2, Red Blood Count 3.48L, Hemoglobin 8.9L, Hematocrit 30L, Mean Corpuscular Volume 87, Mean Corpuscular Hemoglobin 26, Mean Corpuscular Hemoglobin Concent 30L, Red Cell Distribution Width 18.8H, Platelet Count 328, Mean Platelet Volume 8.2L, Immature Granulocyte % (Auto) 1, Neutrophils (%) (Auto) 67, Lymphocytes (%) (Auto) 13, Monocytes (%) (Auto) 13H, Eosinophils (%) (Auto) 5, Basophils (%) (Auto) 0, Neutrophils # (Auto) 4.2, Lymphocytes # (Auto) 0.8L, Monocytes # (Auto) 0.8, Eosinophils # (Auto) 0.3, Basophils # (Auto) 0.0, Immature Granulocyte # (Auto) 0.1, Sodium Level 138, Potassium Level 3.8, Chloride Level 102, Carbon Dioxide Level 22, Anion Gap 14, Blood Urea Nitrogen 9, Creatinine 0.93, Estimat Glomerular Filtration Rate 101, BUN/Creatinine Ratio 10, Glucose Level 99, Calcium Level 9.5, Corrected Calcium 10.2H, Total Bilirubin 0.2, Aspartate Amino Transf (AST/SGOT) 20, Alanine Aminotransferase (ALT/SGPT) 18, Alkaline Phosphatase 65, Total Protein 6.7, Albumin 3.1L, P rocalcitonin 0.14H 07/15/21 08:50: Vancomycin Level Trough 20.7H Microbiology 07/15/21 Blood Culture - Preliminary, Resulted No growth 07/12/21 Urine Culture - Final, Complete NO GROWTH Pending Labs Microbiology Date/Time Source Procedure Growth Status 07/15/21 06:03 Peripheral Rt Hand Blood Culture - Preliminary No growth Resulted 07/15/21 05:45 Port Central Line Blood Culture - Preliminary No growth Resulted 07/13/21 07:55 Peripheral Rt Ac Blood Culture - Final No growth Complete 07/13/21 06:40 Peripheral Not Otherwise Specified Blood Culture - Final Staphylococcus epidermidis Complete 07/12/21 17:50 Urine Clean Catch Urine Culture - Final NO GROWTH Complete Laboratory Tests 07/09/21 13:50: Lab Scanned Report Referred Lab Report 07/10/21 06:00: White Blood Count 9.7, Red Blood Count 2.87, Hemoglobin 7.5, Hematocrit 24, Mean Corpuscular Volume 85, Mean Corpuscular Hemoglobin 26, Mean Corpuscular Hemoglobin Concent 31, Red Cell Distribution Width 17.6, Platelet Count 379, Mean Platelet Volume 8.4, Immature Granulocyte % (Auto) 1, Neutrophils (%) (Auto) 72, Lymphocytes (%) (Auto) 10, Monocytes (%) (Auto) 16, Eosinophils (%) (Auto) 2, Basophils (%) (Auto) 0, Neutrophils # (Auto) 6.9, Lymphocytes # (Auto) 0.9, Monocytes # (Auto) 1.6, Eosinophils # (Auto) 0.2, Basophils # (Auto) 0.0, Immature Granulocyte # (Auto) 0.1, Sodium Level 137, Potassium Level 3.4, Chloride Level 100, Carbon Dioxide Level 22, Anion Gap 15, Blood Urea Nitrogen 10, Creatinine 0.92, Estimat Glomerular Filtration Rate 102, BUN/Creatinine Ratio 11, Glucose Level 116, Calcium Level 9.0, Corrected Calcium 9.7, Total Bilirubin 0.3, Aspartate Amino Transf (AST/SGOT) 16, Alanine Aminotransferase (ALT/SGPT) 22, Alkaline Phosphatase 62, Total Protein 6.8, Albumin 3.1, Procalcitonin 0.17 07/10/21 10:45: Iron Level 31, Vitamin B12 Level 614 07/12/21 14:43: White Blood Count 7.2, Red Blood Count 2.84, Hemoglobin 7.3, Hematocrit 24, Mean Corpuscular Volume 85, Mean Corpuscular Hemoglobin 26, Mean Corpuscular Hemoglobin Concent 30, Red Cell Distribution Width 17.5, Platelet Count 352, Mean Platelet Volume 8.4, Immature Granulocyte % (Auto) 1, Neutrophils (%) (Auto) 70, Lymphocytes (%) (Auto) 11, Monocytes (%) (Auto) 14, Eosinophils (%) (Auto) 5, Basophils (%) (Auto) 0, Neutrophils # (Auto) 5.0, Lymphocytes # (Auto) 0.8, Monocytes # (Auto) 1.0, Eosinophils # (Auto) 0.3, Basophils # (Auto) 0.0, Immature Granulocyte # (Auto) 0.1, Sodium Level 136, Potassium Level 4.1, Chloride Level 99, Carbon Dioxide Level 25, Anion Gap 12, Blood Urea Nitrogen 10, Creatinine 0.91, Estimat Glomerular Filtration Rate 103, BUN/Creatinine Ratio 11, Glucose Level 122, Calcium Level 9.1, Corrected Calcium 9.8, Total Bilirubin 0.2, Aspartate Amino Transf (AST/SGOT) 36, Alanine Aminotransferase (ALT/SGPT) 37, Alkaline Phosphatase 75, Total Protein 6.7, Albumin 3.1, Procalcitonin 0.15 07/12/21 17:50: Urine Color ORANGE, Urine Clarity SL CLOUDY, Urine pH 7.5, Urine Specific Hamilton 1.010, Urine Protein 2+, Urine Glucose (UA) NEGATIVE, Urine Ketones NEGATIVE, Urine Nitrite NEGATIVE, Urine Bilirubin NEGATIVE, Urine Urobilinogen 0.2, Urine Leukocyte Esterase 3+, Urine RBC (Auto) 3+, Urine RBC >100, Urine WBC 50-100, Urine Squamous Epithelial Cells NONE, Urine Renal Epithelial Cells NONE, Urine Crystals NONE, Urine Bacteria NEGATIVE, Urine Casts NONE, Urine Mucus SMALL, Urine Trichomonas LARGE, Urine Culture Indicated YES 07/13/21 06:40: White Blood Count 8.9, Red Blood Count 3.11, Hemoglobin 8.0, Hematocrit 26, Mean Corpuscular Volume 85, Mean Corpuscular Hemoglobin 26, Mean Corpuscular Hemoglobin Concent 30, Red Cell Distribution Width 17.9, Platelet Count 424, Mean Platelet Volume 8.2, Immature Granulocyte % (Auto) 1, Neutrophils (%) (Auto) 73, Lymphocytes (%) (Auto) 12, Monocytes (%) (Auto) 12, Eosinophils (%) (Auto) 3, Basophils (%) (Auto) 0, Neutrophils # (Auto) 6.4, Lymphocytes # (Auto) 1.1, Monocytes # (Auto) 1.1, Eosinophils # (Auto) 0.2, Basophils # (Auto) 0.0, Immature Granulocyte # (Auto) 0.1, Sodium Level 135, Potassium Level 4.0, Chloride Level 98, Carbon Dioxide Level 20, Anion Gap 17, Blood Urea Nitrogen 8, Creatinine 0.99, Estimat Glomerular Filtration Rate 93, BUN/Creatinine Ratio 8, Glucose Level 113, Lactic Acid Level 1.18, Calcium Level 9.5, Corrected Calcium 10.1, Total Bilirubin 0.3, Aspartate Amino Transf (AST/SGOT) 22, Alanine Aminotransferase (ALT/SGPT) 29, Alkaline Phosphatase 75, Total Protein 7.5, Albumin 3.3, Procalcitonin 0.16 07/14/21 19:35: Vancomycin Level Trough 36.0 07/15/21 05:45: White Blood Count 6.2, Red Blood Count 3.48, Hemoglobin 8.9, Hematocrit 30, Mean Corpuscular Volume 87, Mean Corpuscular Hemoglobin 26, Mean Corpuscular Hemoglobin Concent 30, Red Cell Distribution Width 18.8, Platelet Count 328, Mean Platelet Volume 8.2, Immature Granulocyte % (Auto) 1, Neutrophils (%) (Auto) 67, Lymphocytes (%) (Auto) 13, Monocytes (%) (Auto) 13, Eosinophils (%) (Auto) 5, Basophils (%) (Auto) 0, Neutrophils # (Auto) 4.2, Lymphocytes # (Auto) 0.8, Monocytes # (Auto) 0.8, Eosinophils # (Auto) 0.3, Basophils # (Auto) 0.0, Immature Granulocyte # (Auto) 0.1, Sodium Level 138, Potassium Level 3.8, Chloride Level 102, Carbon Dioxide Level 22, Anion Gap 14, Blood Urea Nitrogen 9, Creatinine 0.93, Estimat Glomerular Filtration Rate 101, BUN/Creatinine Ratio 10, Glucose Level 99, Calcium Level 9.5, Corrected Calcium 10.2, Total Bilirubin 0.2, Aspartate Amino Transf (AST/SGOT) 20, Alanine Aminotransferase (ALT/SGPT) 18, Alkaline Phosphatase 65, Total Protein 6.7, Albumin 3.1, Procalcitonin 0.14 07/15/21 08:50: Vancomycin Level Trough 20.7 Discharge Home Medications: Active Scripts Active Oxybutynin Chloride 5 Mg Tablet 5 Mg PO BID Lotrimin AF (Miconazole Nitrate) 2 % Powder 0 Gm TOP BID PRN Acidophilus-Pectin Capsule (Lactobacillus Acidophilus/Pect) 75 Million Cell-100 Mg Capsule 2 Each PO TIDWM Cymbalta (Duloxetine HCl) 30 Mg Capsule.dr 90 Mg PO DAILY Diclofenac Sodium 1 % Gel..gram. 0 Gm TOP QID PRN Eliquis (Apixaban) 5 Mg Tablet 5 Mg PO BID Methocarbamol 750 Mg Tablet 750 Mg PO BID PRN Flomax (Tamsulosin HCl) 0.4 Mg Cap 0.4 Mg PO DAILY Oscimin (Hyoscyamine Sulfate) 0.125 Mg Tablet 0.125 Mg PO Q4H PRN Vitamin C (Ascorbate Calcium) 500 Mg Tablet 500 Mg PO DAILY Oxycodone HCl 5 Mg Tablet 5 Mg PO Q4H PRN Oxcarbazepine 600 Mg Tablet 600 Mg PO HS Loperamide (Loperamide HCl) 2 Mg Capsule 2-4 Mg PO UD PRN Xalatan (Latanoprost) 2.5 Ml Drops 1 Drop OS HS Vitamin E (Vitamin E Mixed) 400 Unit Capsule 400 Unit PO DAILY Trazodone HCl 50 Mg Tablet 50 Mg PO HS Timolol Maleate 0.5% (Timolol Maleate) 5 Ml Drops 1 Drop OS BID Sodium Bicarbonate 650 Mg Tablet 650 Mg PO TID Potassium Chloride 10 Meq Tab.er.prt 10 Meq PO DAILY Polyethylene Glycol 3350 17 Gm Powd.pack 17 Gm PO DAILY PRN Oxcarbazepine 300 Mg Tablet 900 Mg PO DAILY TAKES 3 (300MG) TAB Ferrous Sulfate 325 Mg Tablet 325 Mg PO DAILY TAKE ON EMPTY STOMACH AT LEAST 1 HOUR BEFORE OR 2 HOURS BEFORE FOOD Acid Ring Cutter Lathe Operator (FAMOTIDINE) (Famotidine) 20 Mg Tablet 20 Mg PO BID Docusate Sodium 100 Mg Capsule 100 Mg PO BID Lomotil 2.5-0.025 mg Tablet (Diphenoxylate HCl/Atropine) 1 Each Tablet 1 Each PO Q12H PRN Vitamin B-12 (Cyanocobalamin (Vitamin B-12)) 500 Mcg Tablet 1,000 Mcg PO DAILY TAKES 2 (500MCG) TAB Alphagan P (Brimonidine Tartrate) 5 Ml Drops 1 Drop OS BID Tylenol (Acetaminophen) 325 Mg Tablet 650 Mg PO Q4H PRN TAKES 2 (325MG) TAB Tramadol HCl 50 Mg Tablet 50 Mg PO Q8H PRN Instructions to patient/family Please see electronic discharge instructions given to patient. Diagnosis/Problems Diagnosis/Problems (1) Rectal carcinoma (2) Hypertension (3) Intellectual delay (4) Weight loss (5) Nephrostomy status (6) Status post pneumothorax (7) Left ureteral injury (8) Former smoker (9) Anemia RADHA MCKAY DO Jul 18, 2021 10:51
--- NOTE | 2021-07-18 10:57 | Therapy Team Discharge Summary ---
Therapy Discharge Summary Discharge Recommendations Date of Discharge Physical Therapy Roll Left to Right (QC): 6 Sit to Lying (QC): 6 Lying to Sitting/Side of Bed(Q: 6 Sit to Stand (QC): 6 Chair/Ibw-wo-Crkhv Xfer(QC): 6 Toilet Transfer (QC): 4 Car Transfer (QC): 4 Does the Patient Walk: Yes Mode of Locomotion: Walk Anticipated Mode of Locomotion: Walk Walk 10 feet (QC): 6 Walk 50 ft with 2 Turns(QC): 6 Walk 150 ft (QC): 6 Walking 10ft on uneven surface: 4 Distance: 60'x2 Gait Assistive Device: FWW Does the Pt Use a Wheelchair: No Wheel 50 ft with 2 turns (QC): 1 Wheel 150 ft (QC): 1 Type of Wheelchair: N/A #of Steps: 0 1 Step (curb) (QC): 4 4 Steps (QC): 88 12 Steps (QC): 88 Walking Assistive Device: Walker Balance Sitting Static: Good Balance Sitting Dynamic: Good Balance-Standing Static: Fair Picking up an Object (QC): 4 Occupational Therapy Decreased Activ Tolerance, Decreased Safety Aware, Decreased UE Strength, Impaired Cognition, Impaired Funct Balance, Impaired Self-Care Skills Eating (QC): 6 Oral Hygiene (QC): 5 Shower/Bathe Self (QC): 4 Upper Body Dressing (QC): 5 Lower Body Dressing (QC): 4 On/Off Footwear (QC): 2 Toileting Hygiene (QC): 3 (min a for throughness post BM) Speech-Language Pathology Expression of Ideas/Wants: Exhibits (3) Understanding Verbal Content: Usually Understands (3) Brief Interview-Mental Status: Yes Repetition of Three Words: Three (3) Temporal Orientation: Year: Incorrect (0) Temporal Orientation: Month: Accurate within 5 days(2) Temporal Orientation: Day: Correct (1) Recall : Wear to say "Sock": Yes, could recall (2) Recall : Color: Yes, could recall (2) Recall : Bed: Yes, could recall (2) Memory/Recall Ability: That he or she is in a hsp/hsp unit, staff names, season Upon admission, the patient was found to have significant cognitive deficits, specifically with short term memory. Skilled speech pathology services focused on internal and external memory strategies. The patient did display improved with short-term memory skills throughout his stay, reaching the goals placed by the clinician. The patient will discharge on this date to [facility]. PT Mcfp Goals Mcfp Goals PT Mcfp Goals Time Frame: July 30, 2021 Roll Left to Right (QC): 6 Sit to Lying (QC): 6 Lying-Sitting on Side/Bed(QC): 6 Sit to Stand (QC): 6 Chair/Kiy-tk-Swytt Xfer(QC): 6 Car Transfer (QC): 6 Does the Patient Walk: Yes Walk 10 feet (QC): 6 Walk 10ft-Uneven Surface(QC): 6 Walk 50ft with 2 Turns (QC): 6 Walk 150 ft (QC): 6 Does the Pt use WC or Scooter?: Yes Wheel 50 feet with 2 turns (QC: 9 1 Step (curb) (QC): 6 4 Steps (QC): 6 12 Steps (QC): 9 Picking up an Object (QC): 6 OT Stretcher Leveler Operator Goals Mcfp Goals Time Frame: August 03, 2021 Eating (QC): 6 Oral Hygiene (QC): 6 Shower/Bathe Self (QC): 4 Upper Body Dressing (QC): 5 Lower Body Dressing (QC): 5 On/Off Footwear (QC): 5 Toileting Hygiene (QC): 4 Toilet/Commode Transfer (QC): 6 Additional Goals: 1-Demonstrate ADL Tasks, 2-Verbalize Understanding, 3- ImproveStrength/Marco Antonio 1=Demonstrate adherence to instructed precautions during ADL tasks. 2=Patient will verbalize/demonstrate understanding of assistive devices/modifications for ADL. 3=Patient will improve strength/tolerance for activity to enable patient to perform ADL's. Speech Mcfp Goals Stretcher Leveler Operator Goals 1. The patient will demonstrate increased cognitive linguistic skills for safe discharge to the least restrictive environment. MET Time Frame: Two Weeks. MANUEL HUANG Jul 18, 2021 10:57
[2021-07-18 13:15] VITALS: BP 128/75
[2021-07-18 13:20] VITALS: BP 128/75
--- NOTE | 2021-07-18 15:46 | Therapy Team Discharge Summary ---
Therapy Discharge Summary Discharge Recommendations Date of Discharge Jul 18, 2021 at 12:20 Therapy D/C Recommendations: [facility] (TCU/[facility]) Physical Therapy Roll Left to Right (QC): 6 Sit to Lying (QC): 6 Lying to Sitting/Side of Bed(Q: 6 Sit to Stand (QC): 6 Chair/Dwy-dv-Qbuxv Xfer(QC): 6 Toilet Transfer (QC): 4 Car Transfer (QC): 4 Does the Patient Walk: Yes Mode of Locomotion: Walk Anticipated Mode of Locomotion: Walk Walk 10 feet (QC): 6 Walk 50 ft with 2 Turns(QC): 6 Walk 150 ft (QC): 6 Walking 10ft on uneven surface: 4 Distance: 60'x2 Gait Assistive Device: FWW Does the Pt Use a Wheelchair: No Wheel 50 ft with 2 turns (QC): 1 Wheel 150 ft (QC): 1 Type of Wheelchair: N/A #of Steps: 0 1 Step (curb) (QC): 4 4 Steps (QC): 88 12 Steps (QC): 88 Walking Assistive Device: Walker Balance Sitting Static: Good Balance Sitting Dynamic: Good Balance-Standing Static: Fair Picking up an Object (QC): 4 Occupational Therapy Pt arrived to [facility] s/p EX LAP, DLI Takedown, L ureteroneocystostomy. At time of eval, pt was max a with bathing and footwear, mod a with toileting, lb dressing, and upper body dressing, and sba for oral care. During rehab stay, OT focused on balance, safety, cognition, UE strengthening, endurance, and activity tolerance in order to improve indep and safety with adls and mobility. Pt made fair progress but did not meet all of his terminal makeup operator goals. See below for current levels of assist. Pt is now discharged from this facility and will be discharged from OT at this time. Decreased Activ Tolerance, Decreased Safety Aware, Decreased UE Strength, Impaired Cognition, Impaired Funct Balance, Impaired Self-Care Skills Eating (QC): 6 Oral Hygiene (QC): 5 Shower/Bathe Self (QC): 4 Upper Body Dressing (QC): 5 Lower Body Dressing (QC): 4 On/Off Footwear (QC): 2 Toileting Hygiene (QC): 3 (min a for throughness post BM) PT [facility] Goals [facility] Goals PT [facility] Goals Time Frame: July 30, 2021 Roll Left to Right (QC): 6 Sit to Lying (QC): 6 Lying-Sitting on Side/Bed(QC): 6 Sit to Stand (QC): 6 Chair/Opt-oy-Tpwbh Xfer(QC): 6 Car Transfer (QC): 6 Does the Patient Walk: Yes Walk 10 feet (QC): 6 Walk 10ft-Uneven Surface(QC): 6 Walk 50ft with 2 Turns (QC): 6 Walk 150 ft (QC): 6 Does the Pt use WC or Scooter?: Yes Wheel 50 feet with 2 turns (QC: 9 1 Step (curb) (QC): 6 4 Steps (QC): 6 12 Steps (QC): 9 Picking up an Object (QC): 6 OT [facility] Goals Mobile Ui/Ux Designer Goals Time Frame: August 03, 2021 Eating (QC): 6 (met) Oral Hygiene (QC): 6 (not met, set up) Shower/Bathe Self (QC): 4 (met) Upper Body Dressing (QC): 5 (met) Lower Body Dressing (QC): 5 (not met) On/Off Footwear (QC): 5 (not met) Toileting Hygiene (QC): 4 (not met) Toilet/Commode Transfer (QC): 6 (not met) Additional Goals: 1-Demonstrate ADL Tasks, 2-Verbalize Understanding, 3-ImproveStrength/Marco Antonio 1=Demonstrate adherence to instructed precautions during ADL tasks. 2=Patient will verbalize/demonstrate understanding of assistive devices/modifications for ADL. 3=Patient will improve strength/tolerance for activity to enable patient to perform ADL's. Speech [facility] Goals Mobile Ui/Ux Designer Goals 1. The patient will demonstrate increased cognitive linguistic skills for safe discharge to the least restrictive environment. MET Time Frame: Two Weeks. Beverly Santos OT Jul 18, 2021 15:46
--- NOTE | 2021-07-18 15:53 | Therapy Team Discharge Summary ---
Therapy Discharge Summary Discharge Recommendations Date of Discharge Jul 18, 2021 at 12:20 Physical Therapy Patient came to rehab with s/p ex lap, DLI takedown and left ureteroneocystostomy. Upon evaluation patient performed rolling and sit to lying with independence, supine to sit with min assist, sit <-> stand and transfers with CGA, car transfer CGA. Patient has been performing bed mobility and transfer training, balance and endurance training functional strengthening, stair training, gait training, and education. Patient has made some progress but has not met his mcc goals for car transfer, toilet transfer, ambulating over an uneven surface, and stairs. Now, patient performs rolling and supine <-> sit with independence, sit <-> stand and transfers with independence, car transfer with CGA/SBA, ambulates 150' with a rolling walker with independence (including 50' with at least 2 turns of 90 degrees but needs CGA/SBA for 10' over an uneven surface), and can go up and down 1 step using a rolling walker with CGA/SBA. Patient was discharged from this facility today and will be discharged from PT at this time. Roll Left to Right (QC): 6 Sit to Lying (QC): 6 Lying to Sitting/Side of Bed(Q: 6 Sit to Stand (QC): 6 Chair/Qzc-oi-Udycz Xfer(QC): 6 Toilet Transfer (QC): 4 Car Transfer (QC): 4 Does the Patient Walk: Yes Mode of Locomotion: Walk Anticipated Mode of Locomotion: Walk Walk 10 feet (QC): 6 Walk 50 ft with 2 Turns(QC): 6 Walk 150 ft (QC): 6 Walking 10ft on uneven surface: 4 Distance: 60'x2 Gait Assistive Device: FWW Does the Pt Use a Wheelchair: No Wheel 50 ft with 2 turns (QC): 1 Wheel 150 ft (QC): 1 Type of Wheelchair: N/A #of Steps: 0 1 Step (curb) (QC): 4 4 Steps (QC): 88 12 Steps (QC): 88 Walking Assistive Device: Walker Balance Sitting Static: Good Balance Sitting Dynamic: Good Balance-Standing Static: Fair Picking up an Object (QC): 4 Occupational Therapy Decreased Activ Tolerance, Decreased Safety Aware, Decreased UE Strength, Impaired Cognition, Impaired Funct Balance, Impaired Self-Care Skills Eating (QC): 6 Oral Hygiene (QC): 5 Shower/Bathe Self (QC): 4 Upper Body Dressing (QC): 5 Lower Body Dressing (QC): 4 On/Off Footwear (QC): 2 Toileting Hygiene (QC): 3 (min a for throughness post BM) PT Shelter Goals Roof Bolter Operator Goals PT Shelter Goals Time Frame: July 30, 2021 Roll Left to Right (QC): 6 Sit to Lying (QC): 6 Lying-Sitting on Side/Bed(QC): 6 Sit to Stand (QC): 6 Chair/Jmt-ku-Rgobe Xfer(QC): 6 Car Transfer (QC): 6 Does the Patient Walk: Yes Walk 10 feet (QC): 6 Walk 10ft-Uneven Surface(QC): 6 Walk 50ft with 2 Turns (QC): 6 Walk 150 ft (QC): 6 Does the Pt use WC or Scooter?: Yes Wheel 50 feet with 2 turns (QC: 9 1 Step (curb) (QC): 6 4 Steps (QC): 6 12 Steps (QC): 9 Picking up an Object (QC): 6 OT Roof Bolter Operator Goals Shelter Goals Time Frame: August 03, 2021 Eating (QC): 6 Oral Hygiene (QC): 6 Shower/Bathe Self (QC): 4 Upper Body Dressing (QC): 5 Lower Body Dressing (QC): 5 On/Off Footwear (QC): 5 Toileting Hygiene (QC): 4 Toilet/Commode Transfer (QC): 6 Additional Goals: 1-Demonstrate ADL Tasks, 2-Verbalize Understanding, 3- ImproveStrength/Marco [place] 1=Demonstrate adherence to instructed precautions during ADL tasks. 2=Patient will verbalize/demonstrate understanding of assistive devices/modifications for ADL. 3=Patient will improve strength/tolerance for activity to enable patient to perform ADL's. Speech Shelter Goals Roof Bolter Operator Goals 1. The patient will demonstrate increased cognitive linguistic skills for safe discharge to the least restrictive environment. MET Time Frame: Two Weeks. MADHU SHIRLEY PT Jul 18, 2021 15:53
== END 2021-07-18 12:20 | DRG 93 ==
PROVIDERS: ADMIT Internal Medicine; ATTEND Internal Medicine
DX: G72.81 Critical illness myopathy (principal); Z85.048 Personal history of other malignant neoplasm of rectum, rectosigmoid junction, and anus; E11.9 Type 2 diabetes mellitus without complications; A59.09 Other urogenital trichomoniasis; K21.9 Gastro-esophageal reflux disease without esophagitis; I10 Essential (primary) hypertension; F41.9 Anxiety disorder, unspecified; F31.9 Bipolar disorder, unspecified; Z48.815 Encounter for surgical aftercare following surgery on the digestive system; F79 Unspecified intellectual disabilities; Z86.718 Personal history of other venous thrombosis and embolism; Z79.01 Long term (current) use of anticoagulants; Z87.891 Personal history of nicotine dependence; Z87.01 Personal history of pneumonia (recurrent); Z88.0 Allergy status to penicillin; Z83.3 Family history of diabetes mellitus; Z82.49 Family history of ischemic heart disease and other diseases of the circulatory system
CPT/HCPCS: 36415; 80053; 80202; 81000; 82607; 83540; 83605; 84145; 85025; 87040; 87077; 87088; 87186

== ENCOUNTER 2021-07-30 13:38 | Outpatient (RCR) | payer MEDICARE, MEDICAID ==
[~2021-07-30 13:38] MED LIST changes: +ACET-2267 PO; +ACET325T38 PO; +AMOX1TAB11 PO; +APIX5TAB PO; +ARGI500T PO; +ASCO-262 PO; +BRIM5DRO2 OS; +CYAN500T8 PO; +DICL100G13 TOP; +DIPH1TAB PO; +DOCU100C37 PO; +DULO30CA49 PO; +FAMO20TA3 PO; +FERR325T18 PO; +FLUC150T41 PO; +GLUC1VIA15 IJ; +HYOS-6 PO; +HYOS0.1296 PO; +LACT1CAP7 PO; +LATA2.5D19 OS; +LATA7.5D OS; +LOPE2CAP PO; +METH-732 PO; +MICO90PO TOP; +NF-SODBICA PO; +OXCA300T18 PO; +OXYB10TA29 PO; +OXYB5TAB13 PO; +OXYC5TAB PO; +POLY17PO54 PO; +POTA10TA37 PO; +TMSL.4C PO; +TRAM50TA3 PO; +TRZ50T PO; +VITA-272 PO
[2021-07-30 14:11] LABS: BASOPHILS % (AUTO) 0 % (0-10); EOSINOPHILS # (AUTO) 0.3 10^3/uL (0.0-0.3); EOSINOPHILS % (AUTO) 4 % (0-10); HEMATOCRIT 35 % (40-54); HEMOGLOBIN 10.2 g/dL (13.3-17.7); LYMPHOCYTES # (AUTO) 1.2 10^3/uL (1.0-4.0); LYMPHOCYTES % (AUTO) 16 % (12-44); MEAN CORPUSCULAR HEMOGLOBIN 26 pg (25-34); MEAN CORPUSCULAR HGB CONC 30 g/dL (32-36); MEAN CORPUSCULAR VOLUME 88 fL (80-99); MEAN PLATELET VOLUME 8.4 fL (9.0-12.2); MONOCYTES # (AUTO) 0.6 10^3/uL (0.0-1.0); MONOCYTES % (AUTO) 8 % (0-12); NEUTROPHILS # (AUTO) 5.5 10^3/uL (1.8-7.8); NEUTROPHILS % (AUTO) 72 % (42-75); PLATELET COUNT 261 10^3/uL (130-400); WHITE BLOOD COUNT 7.6 10^3/uL (4.3-11.0)
[2021-07-30 14:34] LABS: ALBUMIN 3.4 GM/DL (3.2-4.5); BILIRUBIN,TOTAL 0.2 MG/DL (0.1-1.0); CALCIUM 8.8 MG/DL (8.5-10.1); CREATININE SERUM 0.91 MG/DL (0.60-1.30); POTASSIUM 3.4 MMOL/L (3.6-5.0); TOTAL PROTEIN 6.9 GM/DL (6.4-8.2)
== END 2021-08-28 | disposition home or self-care (01) ==
LOC: ONC 13:38
PROVIDERS: ATTEND Internal Medicine Hematology & Oncology
DX: Z45.2 Encounter for adjustment and management of vascular access device (principal); C20 Malignant neoplasm of rectum; D50.9 Iron deficiency anemia, unspecified; N20.0 Calculus of kidney; E66.01 Morbid (severe) obesity due to excess calories; Z90.5 Acquired absence of kidney
CPT/HCPCS: 80053; 82378; 85025; G0463; 36415; 36591; 99213

== ENCOUNTER 2021-09-30 20:35 | Emergency (ER) | payer MEDICARE, MEDICAID ==
[~2021-09-30] VITALS: Ht 170 cm; Wt 122.0 kg
[2021-09-30 20:52] VITALS: BP 145/83
--- NOTE | 2021-09-30 20:56 | ED EENT ---
History of Present Illness General Chief Complaint: Oral/Throat Problems Stated Complaint: SORE THROAT - COUGH- CONGESTION Source: patient Exam Limitations: no limitations History of Present Illness Date Seen by Provider: Sep 30, 2021 Time Seen by Provider: 20:54 Initial Comments Patient is a 50-year-old male who presents the ED with nasal congestion, sore throat and mild cough. Symptoms over the past 2 days. Patient states he has a scratchy throat with nasal congestion. He reports a mild cough without shortness of breath, wheezing or chest pain. He denies of any fever, vomiting, diarrhea, abdominal pain. Up-to-date on his COVID vaccines. No known exposure to COVID. No one else at home with similar symptoms. Requesting COVID swab. Denies history of coronary artery disease, CHF, COPD or asthma. Allergies and Home Medications Allergies Coded Allergies: Penicillins (Verified Allergy, Unknown, RASH, 07/09/21) Per [facility] records (07/09/21) has tolerated amoxicillin and piperacillin/tazobactam. Patient Home Medication List Home Medication List Reviewed: Yes Acetaminophen (Tylenol) 325 Mg Tablet, 650 MG PO Q4H PRN for PAIN-MILD (1-4) Prescribed by: RADHA MCKAY on 07/18/21 1048 Apixaban (Eliquis) 5 Mg Tablet, 5 MG PO BID Prescribed by: RADHA MCKAY on 07/18/21 1048 Ascorbate Calcium (Vitamin C) 500 Mg Tablet, 500 MG PO DAILY Prescribed by: RADHA MCKAY on 07/18/21 1048 Brimonidine Tartrate (Alphagan P) 5 Ml Drops, 1 DROP OS BID Prescribed by: RADHA MCKAY on 07/18/21 1048 Cyanocobalamin (Vitamin B-12) (Vitamin B-12) 500 Mcg Tablet, 1,000 MCG PO DAILY Prescribed by: RADHA MCKAY on 07/18/21 1048 Diclofenac Sodium (Diclofenac Sodium) 1 % Gel..gram., 0 GM TOP QID PRN for PAIN-MILD (1-4) Prescribed by: RADHA MCKAY on 07/18/21 1048 Diphenoxylate HCl/Atropine (Lomotil 2.5-0.025 mg Tablet) 1 Each Tablet, 1 EACH PO Q12H PRN for DIARRHEA Prescribed by: RADHA MCKAY on 07/18/21 1049 Docusate Sodium (Docusate Sodium) 100 Mg Capsule, 100 MG PO BID Prescribed by: RADHA MCKAY on 07/18/21 1048 Duloxetine HCl (Cymbalta) 30 Mg Capsule.dr, 90 MG PO DAILY Prescribed by: RADHA MCKAY on 07/18/21 1048 Famotidine (Acid Associate Dean Of Women (FAMOTIDINE)) 20 Mg Tablet, 20 MG PO BID Prescribed by: RADHA MCKAY on 07/18/21 1048 Ferrous Sulfate (Ferrous Sulfate) 325 Mg Tablet, 325 MG PO DAILY Prescribed by: RADHA MCKAY on 07/18/21 1048 Hyoscyamine Sulfate (Oscimin) 0.125 Mg Tablet, 0.125 MG PO Q4H PRN for CRAMPS Prescribed by: RADHA MCKAY on 07/18/21 1048 Lactobacillus Acidophilus/Pect (Acidophilus-Pectin Capsule) 75 Million Cell-100 Mg Capsule, 2 EACH PO TIDWM Prescribed by: RADHA MCKAY on 07/18/21 1048 Latanoprost (Xalatan) 2.5 Ml Drops, 1 DROP OS HS Prescribed by: RADHA MCKAY on 07/18/21 1048 Loperamide HCl (Loperamide) 2 Mg Capsule, 2-4 MG PO UD PRN for DIARRHEA Prescribed by: RADHA MCKAY on 07/18/21 1048 Methocarbamol (Methocarbamol) 750 Mg Tablet, 750 MG PO BID PRN for SPASMS Prescribed by: RADHA MCKAY on 07/18/21 1048 Miconazole Nitrate (Lotrimin AF) 2 % Powder, 0 GM TOP BID PRN for RASH Prescribed by: RADHA MCKAY on 07/18/21 1048 Oxcarbazepine (Oxcarbazepine) 300 Mg Tablet, 900 MG PO DAILY Prescribed by: RADHA MCKAY on 07/18/21 1048 Oxcarbazepine (Oxcarbazepine) 600 Mg Tablet, 600 MG PO HS Prescribed by: RADHA MCKAY on 07/18/21 1048 Oxybutynin Chloride (Oxybutynin Chloride) 5 Mg Tablet, 5 MG PO BID Prescribed by: RADHA MCKAY on 07/18/21 1048 Oxycodone HCl (Oxycodone HCl) 5 Mg Tablet, 5 MG PO Q4H PRN for PAIN-SEVERE (8- 10) Prescribed by: RADHA MCKAY on 07/18/21 1049 Polyethylene Glycol 3350 (Polyethylene Glycol 3350) 17 Gm Powd.pack, 17 GM PO DAILY PRN for CONSTIPATION-2ND LINE Prescribed by: RADHA MCKAY on 07/18/21 1048 Potassium Chloride (Potassium Chloride) 10 Meq Tab.er.prt, 10 MEQ PO DAILY Prescribed by: RADHA MCKAY on 07/18/21 1048 Sodium Bicarbonate (Sodium Bicarbonate) 650 Mg Tablet, 650 MG PO TID Prescribed by: RADHA MCKAY on 07/18/21 1048 Tamsulosin HCl (Flomax) 0.4 Mg Cap, 0.4 MG PO DAILY Prescribed by: RADHA MCKAY on 07/18/21 1048 Timolol Maleate (Timolol Maleate 0.5%) 5 Ml Drops, 1 DROP OS BID Prescribed by: RADHA MCKAY on 07/18/21 1048 Tramadol HCl (Tramadol HCl) 50 Mg Tablet, 50 MG PO Q8H PRN for PAIN-MODERATE (5- 7) Prescribed by: RADHA MCKAY on 07/18/21 1049 Trazodone HCl (Trazodone HCl) 50 Mg Tablet, 50 MG PO HS Prescribed by: RADHA MCKAY on 07/18/21 1048 Vitamin E Mixed (Vitamin E) 400 Unit Capsule, 400 UNIT PO DAILY Prescribed by: RADHA MCKAY on 07/18/21 1048 Review of Systems Review of Systems Constitutional: No chills, No diaphoresis, No malaise, No weakness Eyes: Denies Blurred Vision, Denies Drainage, Denies Decreased Acuity Ears: Denies Pain Nose: denies clots Mouth: denies clots, denies loose teeth, denies swelling, denies bloody discharge, denies clear discharge, denies purulent discharge, denies serosanguinous discharge, denies previous injury Throat: pain; denies swelling Respiratory: cough Cardiovascular: No see HPI Gastrointestinal: No abdominal pain, No diarrhea, No nausea, No vomiting Musculoskeletal: No back pain, No joint pain All Other Systems Reviewed Negative Unless Noted: Yes Past Qvgcway-Qvypdb-Cdjxaq Hx Patient Social History Tobacco Use?: No Substance use?: No Alcohol Use?: No Immunizations Up To Date First/Initial COVID19 Vaccinat: MODERNA IN JUNE 2020 Second COVID19 Vaccination Marshal: JULY 2020 Third COVID19 Vaccination Date: JANUARY 2021 Seasonal Allergies Seasonal Allergies: No Past Medical History Surgery/Hospitalization HX: 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 Surgeries: Yes (KIDNEY SX CHILD;CATARACT SURGERY;YAG CAPSULOTOMY;COLONOSCOPY/POLYPECTOMY) Abdominal, Eye Surgery, Renal Respiratory: No Currently Using CPAP: No Currently Using BIPAP: No Cardiac: Yes Hypertension Neurological: Yes (PSYCH PROBLEMS) Developmental Disorder Genitourinary: Yes (KIDNEY SURGERY CHILD) Kidney Stones Gastrointestinal: Yes (COLONOSCOPY/POLYPECTOMY 201;D2021 COLON CANCER ) Polyps Musculoskeletal: No Endocrine: Yes (OBESITY) HEENT: Yes (CATARACT SURGERY; YAG CAPSULOTOMY) Cataract, Glaucoma Cancer: Yes (RECTAL) Colon Did You Recieve Any Treatments: Yes What Type of Treatment Did You: Chemotherapy, Radiation Psychosocial: Yes (DEVELOPMENTAL DISABILITY) ADD/ADHD, Anxiety, Bipolar, Personality Disorder, Depression Integumentary: No Blood Disorders: No Family Medical History No Pertinent Family Hx Physical Exam Vital Signs Vital Signs - First Documented 09/30/21 20:52 Temp 36.7 Pulse 101 Resp 18 B/P (MAP) 145/83 (103) Pulse Ox 95 O2 Delivery Room Air Height, Weight, BMI Height: 5'6.00" Weight: 330lbs. 0.0oz. [id number]; 42.04 BMI Method:Stated General Appearance: WD/WN, no apparent distress Eyes: bilateral eye normal inspection, bilateral eye EOMI, bilateral eye abnormal EOM, bilateral eye abnormal pupil Ears: bilateral ear auricle normal, bilateral ear canal normal, bilateral ear TM normal Nose: other (Nasal mucosal edematous with mild erythema ) Mouth/Throat: normal mouth inspection, pharynx normal Neck: non-tender, full range of motion, supple, normal inspection Cardiovascular: regular rate, rhythm, no edema, no gallop, no JVD Respiratory: chest non-tender, lungs clear, normal breath sounds, no respiratory distress, no accessory muscle use Gastrointestinal: normal bowel sounds, non tender, soft, no organomegaly Neurologic/Psychiatric: broadcast operations manager II-XII nml as tested, no motor/sensory deficits, alert, normal mood/affect, oriented x 3 Skin: normal color, warm/dry Progress/Results/Core Measures Results/Orders Lab Results Laboratory Tests Test 09/30/21 20:40 Range/Units Influenza Type A (RT-PCR) Not Detected Not Detecte Influenza Type B (RT-PCR) Not Detected Not Detecte SARS-CoV-2 RNA (RT-PCR) Not Detected Not Detecte My Orders Orders - ANGELO ARORA Covid 19 Inhouse Test (09/30/21 20:40) Influenza A And B By Pcr (09/30/21 20:40) Vital Signs/I&O Departure Communication (PCP) Patient reports nasal congestion and scratchy sore throat. Symptoms started 2 days ago. Reports mild cough. Denies of any wheezing, shortness of breath, cyrus st pain, abdominal pain, bloody stools. History of colon cancer over the past year. States he is getting to start chemotherapy again. He denies of any fever, chills, body aches, headache, dizziness, visual changes. Denies taking any medication at home for his symptoms. He is afebrile. Does not appear toxic. COVID and influenza negative. No one else at home with similar symp toms. Up-to-date on his COVID-vaccine. Symptoms appear to be viral. He has no abdominal tenderness. Does not appear toxic. Recommend Flonase, Zyrtec and cephacol drops. I discussed with patient if he starts developing a fever, weakness, chest pain, worsening cough to return back to ED for further evaluation with lab work and imaging. Patient agrees with plan of action. Impression Primary Impression: URI (upper respiratory infection) Disposition: 01 HOME, SELF-CARE Condition: Stable Departure-Patient Inst. Decision time for Depature: 21:20 Referrals: [facility]/ISAMAR (PCP) Primary Care Physician QUITA SAHNI (Family) Primary Care Physician Patient Instructions: Cough, Runny Nose, and the Common Cold Add. Discharge Instructions: Recommend Flonase for nasal congestion. Zyrtec help with congestion. Cough drops to help with scratchy throat. If any worsening symptoms over the next few days such as chest pain, shortness of breath, weakness, abdominal pain return back to ED All discharge instructions reviewed with patient and/or family. Voiced und erstanding. ANGELO ARORA Sep 30, 2021 20:56
== END 2021-09-30 21:24 | disposition home or self-care (01) ==
LOC: EDUNIT# 20:35 → ER 20:37
DX: J06.9 Acute upper respiratory infection, unspecified (principal); C18.9 Malignant neoplasm of colon, unspecified; E66.9 Obesity, unspecified; Z68.41 Body mass index [BMI] 40.0-44.9, adult; Z93.3 Colostomy status; Z20.822 Contact with and (suspected) exposure to COVID-19
CPT/HCPCS: 87636; 99283

== ENCOUNTER 2021-10-03 13:09 | Outpatient (RCR) | payer MEDICARE, MEDICAID ==
[2021-10-03 15:17] LABS: BASOPHILS % (AUTO) 0 % (0-10); EOSINOPHILS # (AUTO) 0.6 10^3/uL (0.0-0.3); EOSINOPHILS % (AUTO) 8 % (0-10); HEMATOCRIT 41 % (40-54); HEMOGLOBIN 12.1 g/dL (13.3-17.7); LYMPHOCYTES # (AUTO) 0.9 10^3/uL (1.0-4.0); LYMPHOCYTES % (AUTO) 12 % (12-44); MEAN CORPUSCULAR HEMOGLOBIN 26 pg (25-34); MEAN CORPUSCULAR HGB CONC 30 g/dL (32-36); MEAN CORPUSCULAR VOLUME 88 fL (80-99); MEAN PLATELET VOLUME 8.7 fL (9.0-12.2); MONOCYTES # (AUTO) 0.6 10^3/uL (0.0-1.0); MONOCYTES % (AUTO) 8 % (0-12); NEUTROPHILS # (AUTO) 5.4 10^3/uL (1.8-7.8); NEUTROPHILS % (AUTO) 71 % (42-75); PLATELET COUNT 224 10^3/uL (130-400); WHITE BLOOD COUNT 7.6 10^3/uL (4.3-11.0)
[2021-10-03 15:25] LABS: ALBUMIN 3.9 GM/DL (3.2-4.5); BILIRUBIN,TOTAL 0.2 MG/DL (0.1-1.0); CALCIUM 9.4 MG/DL (8.5-10.1); CREATININE SERUM 1.04 MG/DL (0.60-1.30); POTASSIUM 3.5 MMOL/L (3.6-5.0); TOTAL PROTEIN 7.8 GM/DL (6.4-8.2)
== END 2021-10-28 | disposition home or self-care (01) ==
LOC: ONC 13:09
PROVIDERS: ATTEND Internal Medicine Hematology & Oncology
DX: Z45.2 Encounter for adjustment and management of vascular access device (principal); C20 Malignant neoplasm of rectum; D50.9 Iron deficiency anemia, unspecified; N20.0 Calculus of kidney; E66.01 Morbid (severe) obesity due to excess calories; Z90.5 Acquired absence of kidney
CPT/HCPCS: 80053; 85025; G0463; 36591

== ENCOUNTER 2021-10-21 07:12 | Emergency (ER) | payer MEDICARE, MEDICAID ==
[~2021-10-21] VITALS: Ht 167.7 cm; Wt 122.0 kg
[2021-10-21 07:25] VITALS: BP 149/75
--- NOTE | 2021-10-21 07:27 | ED EENT ---
History of Present Illness General Chief Complaint: Ear Problems Stated Complaint: UNABLE TO HEAR OUT OF BOTH EARS Source: patient Exam Limitations: no limitations History of Present Illness Date Seen by Provider: Oct 21, 2021 Time Seen by Provider: 07:17 Initial Comments Patient to the ER by private conveyance with his significant other chief complaint for the past few days he has been having some itchy pain and pressure in bilateral ears as well as decreased hearing. Has been using Q-tips and warm water from the shower to try and clean his ears out unsuccessfully. Has had myringotomy tubes [address] Bernal, ENT. He is not having any fevers chills nausea vomiting cough or shortness of air. He has a history of colon cancer followed by [facility] in remission not on any medication or chemotherapy for that right now. Allergies and Home Medications Allergies Coded Allergies: Penicillins (Verified Allergy, Unknown, RASH, 07/09/21) Per [facility] records (07/09/21) has tolerated amoxicillin and piperacillin/tazobactam. Patient Home Medication List Home Medication List Reviewed: Yes Acetaminophen (Tylenol) 325 Mg Tablet, 650 MG PO Q4H PRN for PAIN-MILD (1-4) Prescribed by: RADHA MCKAY on 07/18/21 1048 Apixaban (Eliquis) 5 Mg Tablet, 5 MG PO BID Prescribed by: RADHA MCKAY on 07/18/21 1048 Ascorbate Calcium (Vitamin C) 500 Mg Tablet, 500 MG PO DAILY Prescribed by: RADHA MCKAY on 07/18/21 1048 Brimonidine Tartrate (Alphagan P) 5 Ml Drops, 1 DROP OS BID Prescribed by: RADHA MCKAY on 07/18/21 1048 Cyanocobalamin (Vitamin B-12) (Vitamin B-12) 500 Mcg Tablet, 1,000 MCG PO DAILY Prescribed by: RADHA MCKAY on 07/18/21 1048 Diclofenac Sodium (Diclofenac Sodium) 1 % Gel..gram., 0 GM TOP QID PRN for PAIN- MILD (1-4) Prescribed by: RADHA MCKAY on 07/18/21 1048 Diphenoxylate HCl/Atropine (Lomotil 2.5-0.025 mg Tablet) 1 Each Tablet, 1 EACH PO Q12H PRN for DIARRHEA Prescribed by: RADHA MCKAY on 07/18/21 1049 Docusate Sodium (Docusate Sodium) 100 Mg Capsule, 100 MG PO BID Prescribed by: RADHA MCKAY on 07/18/21 104 Duloxetine HCl (Cymbalta) 30 Mg Capsule.dr, 90 MG PO DAILY Prescribed by: RDAHA MCKAY on 07/18/21 104 Famotidine (Acid Clinical Product Manager (FAMOTIDINE)) 20 Mg Tablet, 20 MG PO BID Prescribed by: RADHA MCKAY on 07/18/21 104 Ferrous Sulfate (Ferrous Sulfate) 325 Mg Tablet, 325 MG PO DAILY Prescribed by: RADHA MCKAY on 07/18/21 104 Hyoscyamine Sulfate (Oscimin) 0.125 Mg Tablet, 0.125 MG PO Q4H PRN for CRAMPS Prescribed by: RADHA MCKAY on 07/18/21 104 Lactobacillus Acidophilus/Pect (Acidophilus-Pectin Capsule) 75 Million Cell-100 Mg Capsule, 2 EACH PO TIDWM Prescribed by: RADHA MCKAY on 07/18/21 104 Latanoprost (Xalatan) 2.5 Ml Drops, 1 DROP OS HS Prescribed by: RADHA MCKAY on 07/18/21 104 Loperamide HCl (Loperamide) 2 Mg Capsule, 2-4 MG PO UD PRN for DIARRHEA Prescribed by: RADHA MCKAY on 07/18/21 104 Methocarbamol (Methocarbamol) 750 Mg Tablet, 750 MG PO BID PRN for SPASMS Prescribed by: RADHA MCKAY on 07/18/21 104 Miconazole Nitrate (Lotrimin AF) 2 % Powder, 0 GM TOP BID PRN for RASH Prescribed by: RADHA MCKAY on 07/18/21 104 Oxcarbazepine (Oxcarbazepine) 300 Mg Tablet, 900 MG PO DAILY Prescribed by: RADHA MCKAY on 07/18/21 104 Oxcarbazepine (Oxcarbazepine) 600 Mg Tablet, 600 MG PO HS Prescribed by: RADHA MCKAY on 07/18/21 104 Oxybutynin Chloride (Oxybutynin Chloride) 5 Mg Tablet, 5 MG PO BID Prescribed by: RADHA MCKAY on 07/18/21 104 Oxycodone HCl (Oxycodone HCl) 5 Mg Tablet, 5 MG PO Q4H PRN for PAIN-SEVERE (8- 10) Prescribed by: RADHA MCKAY on 07/18/21 1049 Polyethylene Glycol 3350 (Polyethylene Glycol 3350) 17 Gm Powd.pack, 17 GM PO DAILY PRN for CONSTIPATION-2ND LINE Prescribed by: RADHA MCKAY on 07/18/21 1048 Potassium Chloride (Potassium Chloride) 10 Meq Tab.er.prt, 10 MEQ PO DAILY Prescribed by: RADHA MCKAY on 07/18/21 1048 Sodium Bicarbonate (Sodium Bicarbonate) 650 Mg Tablet, 650 MG PO TID Prescribed by: RADHA MCKAY on 07/18/21 1048 Tamsulosin HCl (Flomax) 0.4 Mg Cap, 0.4 MG PO DAILY Prescribed by: RADHA MCKAY on 07/18/21 1048 Timolol Maleate (Timolol Maleate 0.5%) 5 Ml Drops, 1 DROP OS BID Prescribed by: RADHA MCKAY on 07/18/21 1048 Tramadol HCl (Tramadol HCl) 50 Mg Tablet, 50 MG PO Q8H PRN for PAIN-MODERATE (5- 7) Prescribed by: RADHA MCKAY on 07/18/21 1049 Trazodone HCl (Trazodone HCl) 50 Mg Tablet, 50 MG PO HS Prescribed by: RADHA MCKAY on 07/18/21 1048 Vitamin E Mixed (Vitamin E) 400 Unit Capsule, 400 UNIT PO DAILY Prescribed by: RADHA MCKAY on 07/18/21 1048 Review of Systems Review of Systems Constitutional: No chills, No diaphoresis Eyes: Denies Blindness, Denies Blurred Vision Ears: See HPI; Denies Dizziness, Denies Pain Nose: denies clots, denies congestion Mouth: denies clots, denies loose teeth Throat: no symptoms reported Respiratory: no symptoms reported All Other Systems Reviewed Negative Unless Noted: Yes Past Nwqqfxf-Srjupx-Dgcaor Hx Patient Social History Tobacco Use?: No Use of E-Cig and/or Vaping dev: No Immunizations Up To Date First/Initial COVID19 Vaccinat: MODERNA IN JUNE 2020 Second COVID19 Vaccination Marshal: JULY 2020 Third COVID19 Vaccination Date: JANUARY 2021 Seasonal Allergies Seasonal Allergies: No Past Medical History Surgery/Hospitalization HX: 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 Surgeries: Yes (KIDNEY SX CHILD;CATARACT SURGERY;YAG CAPSULOTOMY;COLONOSCOPY/POLYPECTOMY) Abdominal, Eye Surgery, Renal Respiratory: No Currently Using CPAP: No Currently Using BIPAP: No Cardiac: Yes Hypertension Neurological: Yes (PSYCH PROBLEMS) Developmental Disorder Genitourinary: Yes (KIDNEY SURGERY CHILD) Kidney Stones Gastrointestinal: Yes (COLONOSCOPY/POLYPECTOMY 201;D2021 COLON CANCER ) Polyps Musculoskeletal: No Endocrine: Yes (OBESITY) HEENT: Yes (CATARACT SURGERY; YAG CAPSULOTOMY) Cataract, Glaucoma Cancer: Yes (RECTAL) Colon Did You Recieve Any Treatments: Yes What Type of Treatment Did You: Chemotherapy, Radiation Psychosocial: Yes (DEVELOPMENTAL DISABILITY) ADD/ADHD, Anxiety, Bipolar, Personality Disorder, Depression Integumentary: No Blood Disorders: No Family Medical History No Pertinent Family Hx Physical Exam Height, Weight, BMI Height: 5'6.00" Weight: 330lbs. 0.0oz. [id number]; 42.00 BMI Method:Stated General Appearance: WD/WN, no apparent distress Eyes: bilateral eye normal inspection, bilateral eye PERRL, bilateral eye EOMI Ears: left ear canal normal; bilateral ear auricle normal, bilateral ear other (Bilateral TMs are occluded by a cerumen impaction with minimal erythema and abrasion of the posterior portion of the right ear canal. No purulence or swelling. Minimally tender to examination) Nose: normal inspection; No discharge Mouth/Throat: normal mouth inspection, pharynx normal Neurologic/Psychiatric: alert, normal mood/affect, oriented x 3 Skin: normal color, warm/dry Progress/Results/Core Measures Progress Progress Note : Time: 08:05 Progress Note Did some education on not using Q-tips and encouraged Debrox or a solution of acetic acid, hydrogen peroxide and rubbing alcohol. Return precautions noted. Departure Impression Primary Impression: Impacted cerumen of both ears Additional Impression: Hearing loss due to cerumen impaction Qualified Codes: H61.23 - Impacted cerumen, bilateral Disposition: 01 HOME, SELF-CARE Condition: Stable Departure-Patient Inst. Decision time for Depature: 08:06 Referrals: [facility]/ISAMAR (PCP) Primary Care Physician QUITA SAHNI (Family) Primary Care Physician Patient Instructions: Ear Wax Impaction (DC) Add. Discharge Instructions: supervisor covering and lining a bottle of Debrox or make the following solution. Apply 3 to 6 drops in each ear. Allow to sit for 30 to 60 seconds before draining each ear respectively. Apply the tincture 2-3 times a day for 7 to 10 days until the hearing is improved. Do not use Q-tips or any other device in the ear as this will disrupt the flow of wax and cause an impaction. Mix in equal parts white vinegar, rubbing alcohol and hydrogen peroxide. Put in an dropper bottle. All discharge instructions reviewed with patient and/or family. Voiced understanding. KELLY ORTIZ Oct 21, 2021 07:26
== END 2021-10-21 08:15 | disposition home or self-care (01) ==
LOC: EDUNIT# 07:12 → ER 07:13
DX: H61.23 Impacted cerumen, bilateral (principal); E66.9 Obesity, unspecified; Z68.41 Body mass index [BMI] 40.0-44.9, adult
CPT/HCPCS: 99281

== ENCOUNTER 2021-11-20 20:41 | Emergency (ER) | payer MEDICARE, MEDICAID ==
[2021-11-20] MEDS ORDERED: DOXYCYCLINE 100 MG (VIBRAMYCIN) TABLET PO STA (21:59)
[2021-11-20] MEDS ORDERED: DOXY100T2 PO (22:10)
--- NOTE | 2021-11-20 22:10 | ED Integumentary General ---
General Chief Complaint: Bite-Animal/Human/Insect Stated Complaint: SWOLLEN LEG Nursing Triage Note: PT ARRIVAL TO ER WITH COMPLAINT OF POSSIBLE SPIDER BITE TO POSTERIOR RIGHT UPPER LEG. PT STATES THAT HE NOTICED IT THIS AM AT 0100. PT STATES THAT ITS REDDENED AND SORE. Source: patient, family Exam Limitations: no limitations History of Present Illness Date Seen by Provider: Nov 20, 2021 Time Seen by Provider: 21:20 Initial Comments This 51-year-old gentleman presents to the emergency room with concern about possible spider bite on the posterior of his right thigh noticed last night. He denies any fever or systemic symptoms. The lesion has a dusky lennon center with surrounding erythema and induration. Allergies and Home Medications Allergies Coded Allergies: Penicillins (Verified Allergy, Unknown, RASH, 07/09/21) Per [facility] records (07/09/21) has tolerated amoxicillin and piperacillin/tazobactam. Patient Home Medication List Home Medication List Reviewed: Yes Acetaminophen (Tylenol) 325 Mg Tablet, 650 MG PO Q4H PRN for PAIN-MILD (1-4) Prescribed by: RADHA MCKAY on 07/18/21 1048 Apixaban (Eliquis) 5 Mg Tablet, 5 MG PO BID Prescribed by: RADHA MCKAY on 07/18/21 1048 Ascorbate Calcium (Vitamin C) 500 Mg Tablet, 500 MG PO DAILY Prescribed by: RADHA MCKAY on 07/18/21 1048 Brimonidine Tartrate (Alphagan P) 5 Ml Drops, 1 DROP OS BID Prescribed by: RADHA MCKAY on 07/18/21 1048 Cyanocobalamin (Vitamin B-12) (Vitamin B-12) 500 Mcg Tablet, 1,000 MCG PO DAILY Prescribed by: RADHA MCKAY on 07/18/21 1048 Diclofenac Sodium (Diclofenac Sodium) 1 % Gel..gram., 0 GM TOP QID PRN for PAIN- MILD (1-4) Prescribed by: RADHA MCKAY on 07/18/21 1048 Diphenoxylate HCl/Atropine (Lomotil 2.5-0.025 mg Tablet) 1 Each Tablet, 1 EACH PO Q12H PRN for DIARRHEA Prescribed by: RADHA MCKAY on 07/18/21 1049 Docusate Sodium (Docusate Sodium) 100 Mg Capsule, 100 MG PO BID Prescribed by: RADHA MCKAY on 07/18/21 1048 Doxycycline Hyclate (Doxycycline Hyclate) 100 Mg Tablet, 100 MG PO BID Prescribed by: CHITO RUIZ on 11/20/212209 Duloxetine HCl (Cymbalta) 30 Mg Capsule.dr, 90 MG PO DAILY Prescribed by: RADHA MCKAY on 07/18/21 1048 Famotidine (Acid Sanding Line Operator (FAMOTIDINE)) 20 Mg Tablet, 20 MG PO BID Prescribed by: RADHA MCKAY on 07/18/21 1048 Ferrous Sulfate (Ferrous Sulfate) 325 Mg Tablet, 325 MG PO DAILY Prescribed by: RADHA MCKAY on 07/18/21 1048 Hyoscyamine Sulfate (Oscimin) 0.125 Mg Tablet, 0.125 MG PO Q4H PRN for CRAMPS Prescribed by: RADHA MCKAY on 07/18/21 1048 Lactobacillus Acidophilus/Pect (Acidophilus-Pectin Capsule) 75 Million Cell-100 Mg Capsule, 2 EACH PO TIDWM Prescribed by: RADHA MCKAY on 07/18/21 1048 Latanoprost (Xalatan) 2.5 Ml Drops, 1 DROP OS HS Prescribed by: RADHA MCKAY on 07/18/21 1048 Loperamide HCl (Loperamide) 2 Mg Capsule, 2-4 MG PO UD PRN for DIARRHEA Prescribed by: RADHA MCKAY on 07/18/21 1048 Methocarbamol (Methocarbamol) 750 Mg Tablet, 750 MG PO BID PRN for SPASMS Prescribed by: RADHA MCKAY on 07/18/21 1048 Miconazole Nitrate (Lotrimin AF) 2 % Powder, 0 GM TOP BID PRN for RASH Prescribed by: RADHA MCKAY on 07/18/21 1048 Oxcarbazepine (Oxcarbazepine) 300 Mg Tablet, 900 MG PO DAILY Prescribed by: RADHA MKCAY on 07/18/21 1048 Oxcarbazepine (Oxcarbazepine) 600 Mg Tablet, 600 MG PO HS Prescribed by: RADHA MCKAY on 07/18/21 1048 Oxybutynin Chloride (Oxybutynin Chloride) 5 Mg Tablet, 5 MG PO BID Prescribed by: RADHA MCKAY on 07/18/21 1048 Oxycodone HCl (Oxycodone HCl) 5 Mg Tablet, 5 MG PO Q4H PRN for PAIN-SEVERE (8- 10) Prescribed by: RADHA MCKAY on 07/18/21 1049 Polyethylene Glycol 3350 (Polyethylene Glycol 3350) 17 Gm Powd.pack, 17 GM PO DAILY PRN for CONSTIPATION-2ND LINE Prescribed by: RADHA MCKAY on 07/18/21 1048 Potassium Chloride (Potassium Chloride) 10 Meq Tab.er.prt, 10 MEQ PO DAILY Prescribed by: RADHA MCKAY on 07/18/21 1048 Sodium Bicarbonate (Sodium Bicarbonate) 650 Mg Tablet, 650 MG PO TID Prescribed by: RADHA MCKAY on 07/18/21 1048 Tamsulosin HCl (Flomax) 0.4 Mg Cap, 0.4 MG PO DAILY Prescribed by: RADHA MCKAY on 07/18/21 1048 Timolol Maleate (Timolol Maleate 0.5%) 5 Ml Drops, 1 DROP OS BID Prescribed by: RADHA MCKAY on 07/18/21 1048 Tramadol HCl (Tramadol HCl) 50 Mg Tablet, 50 MG PO Q8H PRN for PAIN-MODERATE (5- 7) Prescribed by: RADHA MCKAY on 07/18/21 1049 Trazodone HCl (Trazodone HCl) 50 Mg Tablet, 50 MG PO HS Prescribed by: RADHA MCKAY on 07/18/21 1048 Vitamin E Mixed (Vitamin E) 400 Unit Capsule, 400 UNIT PO DAILY Prescribed by: RADHA MCKAY on 07/18/21 1048 Review of Systems Review of Systems Constitutional: no symptoms reported EENTM: no symptoms reported Respiratory: no symptoms reported Cardiovascular: no symptoms reported Gastrointestinal: no symptoms reported Genitourinary: no symptoms reported Musculoskeletal: no symptoms reported Skin: see HPI Psychiatric/Neurological: No Symptoms Reported Endocrine: No Symptoms Reported Hematologic/Lymphatic: No Symptoms Reported Past Bscqtlo-Rvmjyx-Neyscb Hx Patient Social History Tobacco Use?: No Use of E-Cig and/or Vaping dev: No Substance use?: No Alcohol Use?: No Pt feels they are or have been: No Immunizations Up To Date Influenza Vaccine Up-to-Date: Yes; Up-to-Date First/Initial COVID19 Vaccinat: MODERNA IN JUNE 2020 Second COVID19 Vaccination Marshal: JULY 2020 Third COVID19 Vaccination Date: JANUARY 2021 COVID19 Vaccine 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 colon cancer Surgeries: Yes (KIDNEY SX CHILD;CATARACT SURGERY;YAG CAPSULOTOMY;COLONOSCO PY/POLYPECTOMY) Abdominal, Eye Surgery, Renal Respiratory: No Currently Using CPAP: No Currently Using BIPAP: No Cardiac: Yes Hypertension Neurological: Yes (PSYCH PROBLEMS) Developmental Disorder Genitourinary: Yes (KIDNEY SURGERY CHILD) Kidney Stones Gastrointestinal: Yes (COLONOSCOPY/POLYPECTOMY 201;D2021 COLON CANCER ) Polyps Musculoskeletal: No Endocrine: Yes (OBESITY) HEENT: Yes (CATARACT SURGERY; YAG CAPSULOTOMY) Cataract, Glaucoma Cancer: Yes (RECTAL) Colon Did You Recieve Any Treatments: Yes What Type of Treatment Did You: Chemotherapy, Radiation, Surgical Intervention Psychosocial: Yes (DEVELOPMENTAL DISABILITY) ADD/ADHD, Anxiety, Bipolar, Personality Disorder, Depression Integumentary: No Blood Disorders: No Family Medical History No Pertinent Family Hx Physical Exam Vital Signs Vital Signs - First Documented 11/20/21 20:46 Temp 36.9 Pulse 96 Resp 16 B/P (MAP) 176/84 (114) Pulse Ox 100 O2 Delivery Room Air Capillary Refill : Less Than 3 Seconds General Appearance: WD/WN, no apparent distress, obese HEENT: normal ENT inspection Cardiovascular: regular rate, rhythm, no murmur Respiratory: lungs clear, normal breath sounds, no respiratory distress Neurologic/Psychiatric: alert, normal mood/affect, oriented x 3 Skin: other (Dark lennon dusky lesions surrounded by erythematous indurated skin on the posterior right thigh suggestive of spider bite.) Progress/Results/Core Measures Results/Orders My Orders Orders - CHITO AMAYA MD Doxycycline Hyclate Tablet (Vibramycin T (11/20/21 21:59) Vital Signs/I&O 11/20/21 11/20/21 20:46 22:11 Temp 36.9 Pulse 96 87 Resp 16 16 B/P (MAP) 176/84 (114) 154/79 Pulse Ox 100 100 O2 Delivery Room Air Room Air Blood Pressure Mean: 114 Progress Progress Note : Progress Note Bedside ultrasound was utilized to evaluate the lesion. There was no fluid collection to suggest abscess. Patient was started on doxycycline for treatment and/or prophylaxis of possible secondary bacterial infection. See discharge instructions. Departure Impression Primary Impression: Spider bite wound Qualified Codes: T63.301A - Toxic effect of unspecified spider venom, accidental (unintentional), initial encounter Disposition: 01 HOME, SELF-CARE Condition: Stable Departure-Patient Inst. Decision time for Depature: 22:07 Referrals: [facility]/ISAMAR (PCP) Primary Care Physician QUITA SAHNI (Family) Primary Care Physician Patient Instructions: Spider Bites Add. Discharge Instructions: You may use Tylenol or ibuprofen for more mild pain. You may use one of your other prescribed pain medications as previously directed for more severe pain. Complete your antibiotic as prescribed. Monitor progression of the wound with a daily photo. You may use a measuring tape next to it to help document progression. Please return to the ER if you are developing worsening symptoms that require urgent attention such as fever, rapidly progressing pain or swelling, or other acute complications. If you would like the wound reevaluated, you may return to the ER or contact Dr. Eaton. If the wound may worsen for a period of about 2 weeks. Wound should then start to improve. Necrotic or skin in the center of the wound will likely turn black and form a crater. It will eventually slough off with new skin growing in underneath. All discharge instructions reviewed with patient and/or family. Voiced understanding. Scripts Doxycycline Hyclate (Doxycycline Hyclate) 100 Mg Tablet 100 MG PO BID, #14 TAB 0 Refills Prov: CHITO AMAYA MD 11/20/21 Copy Copies To 1: [facility]/CHITO RICO MD Nov 20, 2021 22:10
[2021-11-20 22:11] VITALS: BP 154/79
== END 2021-11-20 22:16 | disposition home or self-care (01) ==
LOC: EDUNIT# 20:41 → ER 20:43
DX: S70.361A Insect bite (nonvenomous), right thigh, initial encounter (principal); E66.9 Obesity, unspecified; Z88.0 Allergy status to penicillin; W57.XXXA Bitten or stung by nonvenomous insect and other nonvenomous arthropods, initial encounter
CPT/HCPCS: 99283

== ENCOUNTER 2021-11-22 20:16 | Inpatient (IN) | payer MEDICARE, MEDICAID ==
[~2021-11-22] VITALS: Ht 170.2 cm; Wt 117.7 kg
[~2021-11-22 20:16] MED LIST changes: +DOXY100T2 PO
[2021-11-23] VITALS (7 sets, daily range): BP systolic 146–166; BP diastolic 73–95
[2021-11-23] MEDS ORDERED: MEROPENEM 500 MG in NS (IVPB) 100 ML IV ONE (00:30)
[2021-11-23] MEDS ORDERED: VANCOMYCIN INJECTION 1,000 MG in NS (IVPB) 250 ML IV ONE (00:30)
[2021-11-23 00:58] LABS: BASOPHILS % (AUTO) 0 % (0-10); EOSINOPHILS # (AUTO) 0.3 10^3/uL (0.0-0.3); EOSINOPHILS % (AUTO) 2 % (0-10); HEMATOCRIT 33 % (40-54); LYMPHOCYTES # (AUTO) 1.3 10^3/uL (1.0-4.0); LYMPHOCYTES % (AUTO) 12 % (12-44); MEAN CORPUSCULAR HEMOGLOBIN 25 pg (25-34); MEAN CORPUSCULAR HGB CONC 31 g/dL (32-36); MEAN CORPUSCULAR VOLUME 82 fL (80-99); MEAN PLATELET VOLUME 8.3 fL (9.0-12.2); MONOCYTES # (AUTO) 0.8 10^3/uL (0.0-1.0); MONOCYTES % (AUTO) 8 % (0-12); NEUTROPHILS # (AUTO) 7.9 10^3/uL (1.8-7.8); NEUTROPHILS % (AUTO) 76 % (42-75); PLATELET COUNT 264 10^3/uL (130-400); WHITE BLOOD COUNT 10.4 10^3/uL (4.3-11.0)
[2021-11-23 01:07] LABS: ALBUMIN 3.6 GM/DL (3.2-4.5); POTASSIUM 3.6 MMOL/L (3.6-5.0)
[2021-11-23 01:08] LABS: CALCIUM 9.5 MG/DL (8.5-10.1)
[2021-11-23 01:09] LABS: TOTAL PROTEIN 7.9 GM/DL (6.4-8.2)
[2021-11-23 01:11] LABS: BILIRUBIN,TOTAL 0.3 MG/DL (0.1-1.0)
[2021-11-23 01:13] LABS: CREATININE SERUM 1.69 MG/DL (0.60-1.30)
[2021-11-23 01:24] LABS: ERYTHROCYTE SEDIMENTATION RATE > 140 MM/HR (0-30)
[2021-11-23] MEDS ORDERED: LACTATED RINGERS 1,000 ML IV ONE (03:44)
[2021-11-23] MEDS ORDERED: ONDANSETRON 4 MG/2 ML (SDV) Z0FRAN IV PRN (04:00)
[2021-11-23] MEDS ORDERED: ACETAMINOPHEN 500 MG TAB (TYLENOL) PO PRN (04:00)
[2021-11-23] MEDS ORDERED: fentaNYL INJ 100 MCG/2 ML AMP IV PRN (04:00)
[2021-11-23] MEDS ORDERED: IBUPROFEN 800 MG (MOTRIN) TAB PO PRN (04:00)
[2021-11-23] MEDS ORDERED: VANCOMYCIN 1250 MG/NS 250 ML IVPB IV ONE ×2 (04:15)
[2021-11-23] MEDS: LACTATED RINGERS 1,000 ML IV SCH ×4 (04:30→20:15)
[2021-11-23 06:24] LABS: BASOPHILS % (AUTO) 0 % (0-10); EOSINOPHILS # (AUTO) 0.2 10^3/uL (0.0-0.3); EOSINOPHILS % (AUTO) 2 % (0-10); HEMATOCRIT 33 % (40-54); HEMOGLOBIN 10.1 g/dL (13.3-17.7); LYMPHOCYTES % (AUTO) 10 % (12-44); MEAN CORPUSCULAR HEMOGLOBIN 25 pg (25-34); MEAN CORPUSCULAR HGB CONC 31 g/dL (32-36); MEAN CORPUSCULAR VOLUME 81 fL (80-99); MEAN PLATELET VOLUME 8.7 fL (9.0-12.2); MONOCYTES # (AUTO) 0.8 10^3/uL (0.0-1.0); MONOCYTES % (AUTO) 7 % (0-12); NEUTROPHILS % (AUTO) 80 % (42-75); PLATELET COUNT 267 10^3/uL (130-400); WHITE BLOOD COUNT 10.1 10^3/uL (4.3-11.0)
[2021-11-23 06:36] LABS: ALBUMIN 3.4 GM/DL (3.2-4.5); POTASSIUM 3.4 MMOL/L (3.6-5.0)
[2021-11-23 06:37] LABS: CALCIUM 9.5 MG/DL (8.5-10.1)
[2021-11-23 06:38] LABS: TOTAL PROTEIN 7.6 GM/DL (6.4-8.2)
[2021-11-23 06:40] LABS: BILIRUBIN,TOTAL 0.3 MG/DL (0.1-1.0)
[2021-11-23 06:42] LABS: CREATININE SERUM 1.63 MG/DL (0.60-1.30)
--- NOTE | 2021-11-23 07:32 | Consultation - Surgery ---
PEÑA CISSE 11/23/2132: History of Present Illness History of Present Illness Patient Consulted On(mesfin/time) 11/23/21 07:26 Date Seen by Provider: Nov 23, 2021 Time Seen by Provider: 07:26 Reason for Visit: Rt upper thigh cellulitis History of Present Illness Consult requested by Dr. Mckay 51yo male with history of stage 3 colon cancer presents with complaint of a suspected spider bite on his right upper thigh that occurred 1 week ago. Pt is a poor historian. Pt states that he has had no fevers, chills, n/v. Pt has no other complaints at this time. Pt denies CP and SOB. Allergies and Home Medications Allergies Coded Allergies: Penicillins (Verified Allergy, Unknown, RASH, 07/09/21) Per [facility] records (07/09/21) has tolerated amoxicillin and piperacillin/tazobactam. Patient Home Medication List Home Medication List Reviewed: Yes Brimonidine Tartrate (Brimonidine Tartrate) 0.2 % Btl, 1 DROP OS BID, (Reported) Entered as Reported by: JARRET LUJAN on 11/23/21950 Last Action: Continued Doxycycline Hyclate (Doxycycline Hyclate) 100 Mg Tablet, 100 MG PO BID, (Reported) Entered as Reported by: JARRET LUJAN on 11/23/21950 Last Action: Held Duloxetine HCl (Duloxetine HCl) 30 Mg Capsule.dr, 90 MG PO DAILY, (Reported) Entered as Reported by: JARRET LUJAN on 11/23/21950 Last Action: Continued Latanoprost (Xalatan) 0.005 % Drops, 1 DROP OS HS, (Reported) Entered as Reported by: JARRET LUJAN on 11/23/21950 Last Action: Continued Oxcarbazepine (Oxcarbazepine) 600 Mg Tablet, 600 MG PO HS, (Reported) Entered as Reported by: JARRET LUJAN on 11/23/21950 Last Action: Converted Oxcarbazepine (Oxcarbazepine) 600 Mg Tablet, 900 MG PO DAILY, (Reported) Entered as Reported by: JARRET LUJAN on 11/23/21950 Last Action: Converted Oxybutynin Chloride (Oxybutynin Chloride) 5 Mg Tablet, 10 MG PO BID, (Reported) Entered as Reported by: JARRET LUJAN on 11/23/21950 Last Action: Continued Potassium Chloride (K-Tab ER) 10 Meq Tablet.er, 10 MEQ PO DAILY, (Reported) Entered as Reported by: JARRET LUJAN on 11/23/21950 Last Action: Continued Sodium Bicarbonate (Sodium Bicarbonate) 650 Mg Tablet, 650 MG PO TID, (Reported) Entered as Reported by: JARRET LUJAN on 11/23/21950 Last Action: Continued Tamsulosin HCl (Flomax) 0.4 Mg Cap, 0.4 MG PO DAILY, (Reported) Entered as Reported by: JARRET LUJAN on 11/23/21950 Last Action: Continued Timolol Maleate (Timolol Maleate 0.5%) 0.5 % Drops, 1 DROP OS BID, (Reported) Entered as Reported by: JARRET LUJAN on 11/23/21950 Last Action: Continued Tramadol HCl (Tramadol HCl) 50 Mg Tablet, 50 MG PO Q6H PRN for PAIN-MODERATE (5- 7), (Reported) Entered as Reported by: JARRET LUJAN on 11/23/21950 Last Action: Continued Trazodone HCl (Trazodone HCl) 50 Mg Tablet, 50 MG PO HS PRN for SLEEP, (Reported) Entered as Reported by: JARRET LUJAN on 11/23/21950 Last Action: Continued Discontinued Medications Acetaminophen (Tylenol) 325 Mg Tablet, 650 MG PO Q4H PRN for PAIN-MILD (1-4) Discontinued Reason: No Longer Taking Prescribed by: RADHA MCKAY on 07/18/211047 Last Action: Discontinued Apixaban (Eliquis) 5 Mg Tablet, 5 MG PO BID Discontinued Reason: No Longer Taking Prescribed by: RADHA MCKAY on 07/18/211047 Last Action: Discontinued Ascorbate Calcium (Vitamin C) 500 Mg Tablet, 500 MG PO DAILY Discontinued Reason: No Longer Taking Prescribed by: RADHA MCKAY on 07/18/211047 Last Action: Discontinued Brimonidine Tartrate (Alphagan P) 5 Ml Drops, 1 DROP OS BID Discontinued Reason: No Longer Taking Prescribed by: RADHA MCKAY on 07/18/211047 Last Action: Discontinued Cyanocobalamin (Vitamin B-12) (Vitamin B-12) 500 Mcg Tablet, 1,000 MCG PO DAILY Discontinued Reason: No Longer Taking Prescribed by: RADHA MCKAY on 07/18/211047 Last Action: Discontinued Diclofenac Sodium (Diclofenac Sodium) 1 % Gel..gram., 0 GM TOP QID PRN for PAIN- MILD (1-4) Discontinued Reason: No Longer Taking Prescribed by: RADHA MCKAY on 07/18/211047 Last Action: Discontinued Diphenoxylate HCl/Atropine (Lomotil 2.5-0.025 mg Tablet) 1 Each Tablet, 1 EACH PO Q12H PRN for DIARRHEA Discontinued Reason: No Longer Taking Prescribed by: RADHA MCKAY on 07/18/211048 Last Action: Discontinued Docusate Sodium (Docusate Sodium) 100 Mg Capsule, 100 MG PO BID Discontinued Reason: No Longer Taking Prescribed by: RADHA MCKAY on 07/18/211047 Last Action: Discontinued Doxycycline Hyclate (Doxycycline Hyclate) 100 Mg Tablet, 100 MG PO BID Discontinued Reason: No Longer Taking Prescribed by: CHITO RUIZ on 11/20/210 Last Action: Discontinued Duloxetine HCl (Cymbalta) 30 Mg Capsule.dr, 90 MG PO DAILY Discontinued Reason: No Longer Taking Prescribed by: RADHA MCKAY on 07/18/211047 Last Action: Discontinued Famotidine (Acid [employer] (FAMOTIDINE)) 20 Mg Tablet, 20 MG PO BID Discontinued Reason: No Longer Taking Prescribed by: RADHA MCKAY on 07/18/211047 Last Action: Discontinued Ferrous Sulfate (Ferrous Sulfate) 325 Mg Tablet, 325 MG PO DAILY Discontinued Reason: No Longer Taking Prescribed by: RADHA MCKAY on 07/18/211047 Last Action: Discontinued Hyoscyamine Sulfate (Oscimin) 0.125 Mg Tablet, 0.125 MG PO Q4H PRN for CRAMPS Discontinued Reason: No Longer Taking Prescribed by: RADHA MCKAY on 07/18/211047 Last Action: Discontinued Lactobacillus Acidophilus/Pect (Acidophilus-Pectin Capsule) 75 Million Cell-100 Mg Capsule, 2 EACH PO TIDWM Discontinued Reason: No Longer Taking Prescribed by: RADHA MCKAY on 07/18/211047 Last Action: Discontinued Latanoprost (Xalatan) 2.5 Ml Drops, 1 DROP OS HS Discontinued Reason: No Longer Taking Prescribed by: RADHA MCKAY on 07/18/211047 Last Action: Discontinued Loperamide HCl (Loperamide) 2 Mg Capsule, 2-4 MG PO UD PRN for DIARRHEA Discontinued Reason: No Longer Taking Prescribed by: RADHA MCKAY on 07/18/211047 Last Action: Discontinued Methocarbamol (Methocarbamol) 750 Mg Tablet, 750 MG PO BID PRN for SPASMS Discontinued Reason: No Longer Taking Prescribed by: RADHA MCKAY on 07/18/211047 Last Action: Discontinued Miconazole Nitrate (Lotrimin AF) 2 % Powder, 0 GM TOP BID PRN for RASH Discontinued Reason: No Longer Taking Prescribed by: RADHA MCKAY on 07/18/211047 Last Action: Discontinued Oxcarbazepine (Oxcarbazepine) 300 Mg Tablet, 900 MG PO DAILY Discontinued Reason: No Longer Taking Prescribed by: RADHA MCKAY on 07/18/211047 Last Action: Discontinued Oxcarbazepine (Oxcarbazepine) 600 Mg Tablet, 600 MG PO HS Discontinued Reason: No Longer Taking Prescribed by: RADHA MCKAY on 07/18/211047 Last Action: Discontinued Oxybutynin Chloride (Oxybutynin Chloride) 5 Mg Tablet, 5 MG PO BID Discontinued Reason: No Longer Taking Prescribed by: RADHA MCKAY on 07/18/211047 Last Action: Discontinued Oxycodone HCl (Oxycodone HCl) 5 Mg Tablet, 5 MG PO Q4H PRN for PAIN-SEVERE (8- 10) Discontinued Reason: No Longer Taking Prescribed by: RADHA MCKAY on 07/18/211048 Last Action: Discontinued Polyethylene Glycol 3350 (Polyethylene Glycol 3350) 17 Gm Powd.pack, 17 GM PO DAILY PRN for CONSTIPATION-2ND LINE Discontinued Reason: No Longer Taking Prescribed by: RADHA MCKAY on 07/18/211047 Last Action: Discontinued Potassium Chloride (Potassium Chloride) 10 Meq Tab.er.prt, 10 MEQ PO DAILY Discontinued Reason: No Longer Taking Prescribed by: RADHA MCKAY on 07/18/211047 Last Action: Discontinued Sodium Bicarbonate (Sodium Bicarbonate) 650 Mg Tablet, 650 MG PO TID Discontinued Reason: No Longer Taking Prescribed by: RADHA MCKAY on 07/18/211047 Last Action: Discontinued Tamsulosin HCl (Flomax) 0.4 Mg Cap, 0.4 MG PO DAILY Discontinued Reason: No Longer Taking Prescribed by: RADHA MCKAY on 07/18/211047 Last Action: Discontinued Timolol Maleate (Timolol Maleate 0.5%) 5 Ml Drops, 1 DROP OS BID Discontinued Reason: No Longer Taking Prescribed by: RADHA MCKAY on 07/18/211047 Last Action: Discontinued Tramadol HCl (Tramadol HCl) 50 Mg Tablet, 50 MG PO Q8H PRN for PAIN-MODERATE (5- 7) Discontinued Reason: No Longer Taking Prescribed by: RADHA MCKAY on 07/18/211048 Last Action: Discontinued Trazodone HCl (Trazodone HCl) 50 Mg Tablet, 50 MG PO HS Discontinued Reason: No Longer Taking Prescribed by: RADHA MCKAY on 07/18/211047 Last Action: Discontinued Vitamin E Mixed (Vitamin E) 400 Unit Capsule, 400 UNIT PO DAILY Discontinued Reason: No Longer Taking Prescribed by: RADHA MCKAY on 07/18/211047 Last Action: Discontinued Past Fdbxhwx-Dshwpr-Cqqqqj Hx Patient Social History Drug of Choice: DENIES Smoking Status: Never a Smoker Type Used: Cigarettes 2nd Hand Smoke Exposure: No Recent Hopitalizations: Yes Alcohol Use?: No Have you traveled recently?: No Immunizations Up To Date Date of Pneumonia Vaccine: Dec 29, 2016 Date of Influenza Vaccine: Jan 03, 2020 Seasonal Allergies Seasonal Allergies: No Surgeries History of Surgeries: Yes (KIDNEY SX CHILD;CATARACT SURGERY;YAG CAPSULOTOMY;COLONOSCOPY/POLYPECTOMY) Surgeries: Abdominal, Eye Surgery, Renal Respiratory History of Respiratory Disorde: No Cardiovascular History of Cardiac Disorders: Yes Cardiac Disorders: Hypertension Neurological History of Neurological Disord: Yes (PSYCH PROBLEMS) Neurological Disorders: Developmental Disorder Genitourinary History of Genitourinary Disor: Yes (KIDNEY SURGERY CHILD) Genitourinary Disorders: Kidney Stones Gastrointestinal History of Gastrointestinal Di: Yes (COLONOSCOPY/POLYPECTOMY 201;D2021 COLON CANCER ) Gastrointestinal Disorders: Polyps Musculoskeletal History of Musculoskeletal Dis: No Endocrine History of Endocrine Disorders: Yes (OBESITY) HEENT History of HEENT Disorders: Yes (CATARACT SURGERY; YAG CAPSULOTOMY) HEENT Disorders: Cataract, Glaucoma Cancer History of Cancer: Yes (RECTAL) Cancer: Colon Psychosocial History of Psychiatric Problem: Yes (DEVELOPMENTAL DISABILITY) Behavioral Health Disorders: ADD/ADHD, Anxiety, Bipolar, Personality Disorder, Depression Integumentary History of Skin or Integumenta: No Blood Transfusions History of Blood Disorders: No Family Medical History Significant Family History: No Pertinent Family Hx Review of Systems-General Constitutional: No chills, No diaphoresis EENTM: No hearing loss, No ear pain Respiratory: No cough, No dyspnea on exertion Cardiovascular: No chest pain, No edema Gastrointestinal: No constipation, No diarrhea Genitourinary: No decreased output, No discharge Musculoskeletal: No joint swelling, No muscle pain; other (spider bite on right upper thigh ) Skin: No change in color, No change in hair/nails Psychiatric/Neurological: Denies Anxiety, Denies Depressed All Other Systems Reviewed Negative Unless Noted: Yes Physical Exam-General Problems Physical Exam Vital Signs Vital Signs - First Documented 11/22/21 21:25 Temp 36.8 Pulse 82 Resp 20 B/P (MAP) 167/92 (117) Pulse Ox 98 O2 Delivery Room Air Capillary Refill : Less Than 3 Seconds General Appearance: WD/WN, no apparent distress HEENT: PERRL/EOMI, normal ENT inspection Neck: supple, normal inspection Respiratory: no respiratory distress, no accessory muscle use Cardiovascular: no edema, no JVD Gastrointestinal: non tender, soft Extremities: inflammation (Right upper thigh spider bite-erythematous with a pustule with mild induration located underneath ) Skin: No damp, No jaundice Lymphatic: no adenopathy Data Review Labs Laboratory Tests 11/23/21 00:45: White Blood Count 10.4, Red Blood Count 3.99L, Hemoglobin 10.0L, Hematocrit 33L, Mean Corpuscular Volume 82, Mean Corpuscular Hemoglobin 25, Mean Corpuscular Hemoglobin Concent 31L, Red Cell Distribution Width 15.8H, Platelet Count 264, Mean Platelet Volume 8.3L, Immature Granulocyte % (Auto) 1, Neutrophils (%) (Auto) 76H, Lymphocytes (%) (Auto) 12, Monocytes (%) (Auto) 8, Eosinophils (%) (Auto) 2, Basophils (%) (Auto) 0, Neutrophils # (Auto) 7.9H, Lymphocytes # (Auto) 1.3, Monocytes # (Auto) 0.8, Eosinophils # (Auto) 0.3, Basophils # (Auto) 0.0, Immature Granulocyte # (Auto) 0.1, Erythrocyte Sedimentation Rate > 140H, Sodium Level 140, Potassium Level 3.6, Chloride Level 103, Carbon Dioxide Level 23, Anion Gap 14, Blood Urea Nitrogen 27H, Creatinine 1.69H, Estimat Glomerular Filtration Rate 49, BUN/Creatinine Ratio 16, Glucose Level 90, Calcium Level 9.5, Corrected Calcium 9.8, Total Bilirubin 0.3, Aspartate Amino Transf (AST/SGOT) 13, Alanine Aminotransferase (ALT/SGPT) 17, Alkaline Phosphatase 100, C-Reactive Protein High Sensitivity 10.88H, Total Protein 7.9, Albumin 3.6, Procalcitonin 0.14H 11/23/21 01:03: Lactic Acid Level 0.61 11/23/21 06:01: White Blood Count 10.1, Red Blood Count 4.00L, Hemoglobin 10.1L, Hematocrit 33L, Mean Corpuscular Volume 81, Mean Corpuscular Hemoglobin 25, Mean Corpuscular Hemoglobin Concent 31L, Red Cell Distribution Width 15.9H, Platelet Count 267, Mean Platelet Volume 8.7L, Immature Granulocyte % (Auto) 1, Neutrophils (%) (Auto) 80H, Lymphocytes (%) (Auto) 10L, Monocytes (%) (Auto) 7, Eosinophils (%) (Auto) 2, Basophils (%) (Auto) 0, Neutrophils # (Auto) 8.0H, Lymphocytes # (Auto) 1.0, Monocytes # (Auto) 0.8, Eosinophils # (Auto) 0.2, Basophils # (Auto) 0.0, Immature Granulocyte # (Auto) 0.1, Sodium Level 139, Potassium Level 3.4L, Chloride Level 106, Carbon Dioxide Level 21, Anion Gap 12, Blood Urea Nitrogen 26H, Creatinine 1.63H, Estimat Glomerular Filtration Rate 51, BUN/Creatinine Ratio 16, Glucose Level 88, Calcium Level 9.5, Corrected Calcium 10.0, Total Bilirubin 0.3, Aspartate Amino Transf (AST/SGOT) 13, Alanine Aminotransferase (ALT/SGPT) 15, Alkaline Phosphatase 92, Total Protein 7.6, Albumin 3.4 Assessment/Plan Assessment/Plan Assessment/Plan Stage 3 colon cancer Rt upper thigh cellulitis Monitor cellulitis Continue Abx ISSA GALVEZ DO 11/23/21 1613: History of Present Illness History of Present Illness History of Present Illness Patient with cellulitis area on right thigh. Began about a week ago. Had slight discomfort at the area. No drainage from the area. Question of a spiderbite. Nothing makes better or worse. U/s with subcutaneous edema, no abscess. Allergies and Home Medications Allergies Coded Allergies: Penicillins (Verified Allergy, Unknown, RASH, 07/09/21) Per [facility] records (07/09/21) has tolerated amoxicillin and piperacillin/tazobactam. Patient Home Medication List Home Medication List Reviewed: Yes Brimonidine Tartrate (Brimonidine Tartrate) 0.2 % Btl, 1 DROP OS BID, (Reported) Entered as Reported by: JARRET LUJAN on 11/23/21950 Last Action: Continued Doxycycline Hyclate (Doxycycline Hyclate) 100 Mg Tablet, 100 MG PO BID, (Reported) Entered as Reported by: JARRET LUJAN on 11/23/21950 Last Action: Held Duloxetine HCl (Duloxetine HCl) 30 Mg Capsule.dr, 90 MG PO DAILY, (Reported) Entered as Reported by: JARRET LUJAN on 11/23/21950 Last Action: Continued Latanoprost (Xalatan) 0.005 % Drops, 1 DROP OS HS, (Reported) Entered as Reported by: JARRET LUJAN on 11/23/21950 Last Action: Continued Oxcarbazepine (Oxcarbazepine) 600 Mg Tablet, 600 MG PO HS, (Reported) Entered as Reported by: JARRET LUJAN on 11/23/21950 Last Action: Converted Oxcarbazepine (Oxcarbazepine) 600 Mg Tablet, 900 MG PO DAILY, (Reported) Entered as Reported by: JARRET LUJAN on 11/23/21950 Last Action: Converted Oxybutynin Chloride (Oxybutynin Chloride) 5 Mg Tablet, 10 MG PO BID, (Reported) Entered as Reported by: JARRET LUJAN on 11/23/21950 Last Action: Continued Potassium Chloride (K-Tab ER) 10 Meq Tablet.er, 10 MEQ PO DAILY, (Reported) Entered as Reported by: JARRET LUJAN on 11/23/21950 Last Action: Continued Sodium Bicarbonate (Sodium Bicarbonate) 650 Mg Tablet, 650 MG PO TID, (Reported) Entered as Reported by: JARRET LUJAN on 11/23/21950 Last Action: Continued Tamsulosin HCl (Flomax) 0.4 Mg Cap, 0.4 MG PO DAILY, (Reported) Entered as Reported by: JARRET LUJAN on 11/23/21950 Last Action: Continued Timolol Maleate (Timolol Maleate 0.5%) 0.5 % Drops, 1 DROP OS BID, (Reported) Entered as Reported by: JARRET LUJAN on 11/23/21950 Last Action: Continued Tramadol HCl (Tramadol HCl) 50 Mg Tablet, 50 MG PO Q6H PRN for PAIN-MODERATE (5- 7), (Reported) Entered as Reported by: JARRET LUJAN on 11/23/21950 Last Action: Continued Trazodone HCl (Trazodone HCl) 50 Mg Tablet, 50 MG PO HS PRN for SLEEP, (Reported) Entered as Reported by: JARRET LUJAN on 11/23/21950 Last Action: Continued Discontinued Medications Acetaminophen (Tylenol) 325 Mg Tablet, 650 MG PO Q4H PRN for PAIN-MILD (1-4) Discontinued Reason: No Longer Taking Prescribed by: RADHA MCKAY on 07/18/211047 Last Action: Discontinued Apixaban (Eliquis) 5 Mg Tablet, 5 MG PO BID Discontinued Reason: No Longer Taking Prescribed by: RADHA MCKAY on 07/18/211047 Last Action: Discontinued Ascorbate Calcium (Vitamin C) 500 Mg Tablet, 500 MG PO DAILY Discontinued Reason: No Longer Taking Prescribed by: RADHA MCKAY on 07/18/211047 Last Action: Discontinued Brimonidine Tartrate (Alphagan P) 5 Ml Drops, 1 DROP OS BID Discontinued Reason: No Longer Taking Prescribed by: RADHA MCKAY on 07/18/211047 Last Action: Discontinued Cyanocobalamin (Vitamin B-12) (Vitamin B-12) 500 Mcg Tablet, 1,000 MCG PO DAILY Discontinued Reason: No Longer Taking Prescribed by: RADHA MCKAY on 07/18/211047 Last Action: Discontinued Diclofenac Sodium (Diclofenac Sodium) 1 % Gel..gram., 0 GM TOP QID PRN for PAIN- MILD (1-4) Discontinued Reason: No Longer Taking Prescribed by: RADHA MCKAY on 07/18/211047 Last Action: Discontinued Diphenoxylate HCl/Atropine (Lomotil 2.5-0.025 mg Tablet) 1 Each Tablet, 1 EACH PO Q12H PRN for DIARRHEA Discontinued Reason: No Longer Taking Prescribed by: RADHA MCKAY on 07/18/211048 Last Action: Discontinued Docusate Sodium (Docusate Sodium) 100 Mg Capsule, 100 MG PO BID Discontinued Reason: No Longer Taking Prescribed by: RADHA MCKAY on 07/18/211047 Last Action: Discontinued Doxycycline Hyclate (Doxycycline Hyclate) 100 Mg Tablet, 100 MG PO BID Discontinued Reason: No Longer Taking Prescribed by: CHITO RUIZ on 11/20/212209 Last Action: Discontinued Duloxetine HCl (Cymbalta) 30 Mg Capsule.dr, 90 MG PO DAILY Discontinued Reason: No Longer Taking Prescribed by: RADHA MCKAY on 07/18/211047 Last Action: Discontinued Famotidine (Acid [employer] Coxsw[employer] (FAMOTIDINE)) 20 Mg Tablet, 20 MG PO BID Discontinued Reason: No Longer Taking Prescribed by: RADHA MCKAY on 07/18/211047 Last Action: Discontinued Ferrous Sulfate (Ferrous Sulfate) 325 Mg Tablet, 325 MG PO DAILY Discontinued Reason: No Longer Taking Prescribed by: RADHA MCKAY on 07/18/211047 Last Action: Discontinued Hyoscyamine Sulfate (Oscimin) 0.125 Mg Tablet, 0.125 MG PO Q4H PRN for CRAMPS Discontinued Reason: No Longer Taking Prescribed by: RADHA MCKAY on 07/18/211047 Last Action: Discontinued Lactobacillus Acidophilus/Pect (Acidophilus-Pectin Capsule) 75 Million Cell-100 Mg Capsule, 2 EACH PO TIDWM Discontinued Reason: No Longer Taking Prescribed by: RADHA MCKAY on 07/18/211047 Last Action: Discontinued Latanoprost (Xalatan) 2.5 Ml Drops, 1 DROP OS HS Discontinued Reason: No Longer Taking Prescribed by: RADHA MCKAY on 07/18/211047 Last Action: Discontinued Loperamide HCl (Loperamide) 2 Mg Capsule, 2-4 MG PO UD PRN for DIARRHEA Discontinued Reason: No Longer Taking Prescribed by: RADHA MCKAY on 07/18/211047 Last Action: Discontinued Methocarbamol (Methocarbamol) 750 Mg Tablet, 750 MG PO BID PRN for SPASMS Discontinued Reason: No Longer Taking Prescribed by: RADHA MCKAY on 07/18/211047 Last Action: Discontinued Miconazole Nitrate (Lotrimin AF) 2 % Powder, 0 GM TOP BID PRN for RASH Discontinued Reason: No Longer Taking Prescribed by: RADHA MCKAY on 07/18/211047 Last Action: Discontinued Oxcarbazepine (Oxcarbazepine) 300 Mg Tablet, 900 MG PO DAILY Discontinued Reason: No Longer Taking Prescribed by: RADHA MCKAY on 07/18/211047 Last Action: Discontinued Oxcarbazepine (Oxcarbazepine) 600 Mg Tablet, 600 MG PO HS Discontinued Reason: No Longer Taking Prescribed by: RADHA MCKAY on 07/18/211047 Last Action: Discontinued Oxybutynin Chloride (Oxybutynin Chloride) 5 Mg Tablet, 5 MG PO BID Discontinued Reason: No Longer Taking Prescribed by: RADHA MCKAY on 07/18/211047 Last Action: Discontinued Oxycodone HCl (Oxycodone HCl) 5 Mg Tablet, 5 MG PO Q4H PRN for PAIN-SEVERE (8- 10) Discontinued Reason: No Longer Taking Prescribed by: RADHA MCKAY on 07/18/211048 Last Action: Discontinued Polyethylene Glycol 3350 (Polyethylene Glycol 3350) 17 Gm Powd.pack, 17 GM PO DAILY PRN for CONSTIPATION-2ND LINE Discontinued Reason: No Longer Taking Prescribed by: RADHA MCKAY on 07/18/211047 Last Action: Discontinued Potassium Chloride (Potassium Chloride) 10 Meq Tab.er.prt, 10 MEQ PO DAILY Discontinued Reason: No Longer Taking Prescribed by: RADHA MCKAY on 07/18/211047 Last Action: Discontinued Sodium Bicarbonate (Sodium Bicarbonate) 650 Mg Tablet, 650 MG PO TID Discontinued Reason: No Longer Taking Prescribed by: RADHA MCKAY on 07/18/211047 Last Action: Discontinued Tamsulosin HCl (Flomax) 0.4 Mg Cap, 0.4 MG PO DAILY Discontinued Reason: No Longer Taking Prescribed by: RADHA MCKAY on 07/18/211047 Last Action: Discontinued Timolol Maleate (Timolol Maleate 0.5%) 5 Ml Drops, 1 DROP OS BID Discontinued Reason: No Longer Taking Prescribed by: RADHA MCKAY on 07/18/211047 Last Action: Discontinued Tramadol HCl (Tramadol HCl) 50 Mg Tablet, 50 MG PO Q8H PRN for PAIN-MODERATE (5- 7) Discontinued Reason: No Longer Taking Prescribed by: RADHA MCKAY on 07/18/211048 Last Action: Discontinued Trazodone HCl (Trazodone HCl) 50 Mg Tablet, 50 MG PO HS Discontinued Reason: No Longer Taking Prescribed by: RADHA MCKAY on 07/18/211047 Last Action: Discontinued Vitamin E Mixed (Vitamin E) 400 Unit Capsule, 400 UNIT PO DAILY Discontinued Reason: No Longer Taking Prescribed by: RADHA MCKAY on 07/18/211047 Last Action: Discontinued Past Zcvdbgq-Zwozlh-Llpbgk Hx Surgeries Surgeries: Rectal Reviewed Nursing Assessment Reviewed/Agree w Nursing PMH: Yes Family Medical History Significant Family History: No Pertinent Family Hx Review of Systems-General Constitutional: No chills, No diaphoresis EENTM: No hearing loss, No ear pain Respiratory: No cough, No dyspnea on exertion Cardiovascular: No chest pain, No edema Gastrointestinal: No constipation, No diarrhea Genitourinary: No decreased output, No discharge Musculoskeletal: No joint swelling, No muscle pain; other (cellulitis right thigh) Skin: change in color; No change in hair/nails Psychiatric/Neurological: Denies Anxiety, Denies Depressed All Other Systems Reviewed Negative Unless Noted: Yes (Negative excepted noted.) Physical Exam-General Problems Physical Exam General Appearance: WD/WN, no apparent distress, obese HEENT: PERRL/EOMI, normal ENT inspection Neck: supple, normal inspection Respiratory: chest non-tender, no respiratory distress, no accessory muscle use Cardiovascular: regular rate, rhythm, no edema, no JVD Gastrointestinal: non tender, soft Rectal: deferred Back: normal inspection, no CVA tenderness Extremities: inflammation (Right upper thigh spider bite-erythematous with a pustule with mild induration located underneath ) Neurologic/Psychiatric: alert, normal mood/affect, oriented x 3 Skin: normal color, warm/dry; No damp, No jaundice Lymphatic: no adenopathy Assessment/Plan Assessment/Plan Assessment/Plan right thigh cellulitis obesity morbid history of rectal cancer. continue abx no abscess formation yet, but if does may need surgical intervention will continue to follow. Supervisory-Addendum Brief Verification & Attestation Participated in pt care: history, MDM, physical Personally performed: exam, history, MDM, supervision of care Care discussed with: Medical Student Procedures: n/a Results interpretation: Verified all documentation Verification and Attestation of Medical Student E/M Service A medical student performed and documented this service in my presence. I reviewed and verified all information documented by the medical student and made modifications to such information, when appropriate. I personally performed the physical exam and medical decision making. Issa Galvez, Nov 23, 2021,16:19 PEÑA CISSE Nov 23, 2021 07:32 ISSA GALVEZ DO Nov 23, 2021 16:13
[2021-11-23] MEDS: MEROPENEM 500 MG/NS 100 ML IVPB IV SCH ×6 (08:12→18:35)
--- NOTE | 2021-11-23 09:43 | Diagnostic Imaging Report ---
Indication: Right thigh spider bite. Sonographic interrogation of the right thigh was performed. There is some edema in subcutaneous tissues but no well-formed fluid collections are seen. There is no abscess. IMPRESSION: Subcutaneous edema. Dictated by: Dictated on workstation # [id number]
[2021-11-23] MEDS ORDERED: BRIMON0.2 OS (09:51)
[2021-11-23] MEDS ORDERED: TRM50T PO (09:51)
[2021-11-23] MEDS ORDERED: TRZ50T PO (09:51)
[2021-11-23] MEDS ORDERED: OXCA600T10 PO ×2 (09:51)
[2021-11-23] MEDS ORDERED: TIMO5DRO5 OS (09:51)
[2021-11-23] MEDS ORDERED: OXYB5TAB13 PO (09:51)
[2021-11-23] MEDS ORDERED: DOXY100T2 PO (09:51)
[2021-11-23] MEDS ORDERED: POTA10TA PO (09:51)
[2021-11-23] MEDS ORDERED: NF-SODBICA PO (09:51)
[2021-11-23] MEDS ORDERED: TMSL.4C PO (09:51)
[2021-11-23] MEDS ORDERED: LATA2.5D19 OS (09:51)
[2021-11-23] MEDS ORDERED: DULO30CA49 PO (09:51)
[2021-11-23] MEDS ORDERED: traZODone 50 MG (DESYREL) TAB PO PRN (12:00)
[2021-11-23] MEDS: SODIUM BICARBONATE 650 MG TABLET PO SCH ×2 (12:23→20:13)
--- NOTE | 2021-11-23 12:52 | History & Physical-Hospitalist ---
PIERRE RUSSO 11/23/21 1252: History of Present Illness HPI/Chief Complaint CC: Right leg cellulitis HPI 51yo Male presented to the ED due to a wound on his right leg. The patient had been in the ED earlier in the week and he was informed that the wound on his right inner thigh was the result of being bitten by a brown recluse spider. He was discharged on medication for the bite but is worried that it is now getting worse. He was not in any pain from the wound at the time of admission as well as the morning of 11/23/2021. He is currently receiving IV abx for the wound. Surgery has been consulted. Source: patient, EMS notes reviewed Exam Limitations: other (poor historian) Date Seen 11/23/21 Time Seen by a Provider: 09:30 Attending Physician [place] PCP Admitting Physician: Tierra Wright DO Attending Physician: Tierra Wright DO Referring Physician Date of Admission Nov 23, 2021 at 01:50 Home Medications & Allergies Home Medications Reviewed patient Home Medication Reconciliation performed by pharmacy medication reconciliations heating and cooling technician and/or nursing. Patients Allergies have been reviewed. Allergies Allergies Coded Allergies Penicillins (Verified Allergy, Unknown, RASH, 07/09/21) Per [facility] records (07/09/21) has tolerated amoxicillin and piperacillin/tazobactam. Past Patutgy-Aturxr-Qgtwyc Hx Patient Social History Tobacco Use?: No Smoking Status: Never a Smoker Smokeless Tobacco Frequency: Never a User Use of E-Cig and/or Vaping dev: No Use of E-Cig and/or Vaping Bahman: Never a User Substance use?: No Alcohol Use?: No Pt feels they are or have been: No Immunizations Up To Date Date of Influenza Vaccine: Jan 03, 2020 First/Initial COVID19 Vaccinat: MODERNA IN JUNE 2020 Second COVID19 Vaccination Marshal: JULY 2020 Tetanus Booster (TDap): Unknown Hepatitis A: No Hepatitis B: No Date of Pneumonia Vaccine: Dec 29, 2016 Seasonal Allergies Seasonal Allergies: No Current Status Advance Directives: Yes Advance Directive Location: Home Communicates: Verbally Primary Language: Uruguayan Preferred Spoken Language: Uruguayan Is interpretation needed?: No Sensory deficits: Vision impairment Implanted or Applied Medical D: Port-a-cath Past Medical History Surgeries: Abdominal, Eye Surgery, Renal Currently Using CPAP: No Currently Using BIPAP: No Hypertension Developmental Disorder Kidney Stones Polyps Cataract, Glaucoma Colon Did You Recieve Any Treatments: Yes What Type of Treatment Did You: Chemotherapy, Radiation, Surgical Intervention ADD/ADHD, Anxiety, Bipolar, Personality Disorder, Depression Blood Disorders: No Family Medical History No Pertinent Family Hx Review of Systems Constitutional: no symptoms reported Respiratory: no symptoms reported Cardiovascular: no symptoms reported Physical Exam Physical Exam Vital Signs Vital Signs - First Documented 11/22/21 21:25 Temp 36.8 Pulse 82 Resp 20 B/P (MAP) 167/92 (117) Pulse Ox 98 O2 Delivery Room Air Capillary Refill : Less Than 3 Seconds Height, Weight, BMI Height: 5'6.00" Weight: 330lbs. 0.0oz. 149.582294gs; 40.63 BMI Method:Stated General Appearance: No Apparent Distress Respiratory: Chest Non Tender, Lungs Clear, Normal Breath Sounds, No Accessory Muscle Use, No Respiratory Distress Cardiovascular: Regular Rate, Rhythm, No Edema, No Gallop, No Murmur, Normal Peripheral Pulses Results Results/Procedures Labs Laboratory Tests 11/23/21 00:45 11/23/21 06:01 Patient resulted labs reviewed. Assessment/Plan Assessment and Plan Right leg cellulitis Surgery consulted Ultrasound showed no evidence of abscess Vancomycin 1,250mg 262.5ml @210ml/hr Trough level to be drawn tomorrow Meropenem 500mg 100ml @ 200ml/hr CKD Monitor BUN/Cr with AM labs Monitor Potassium 3.4 on 11/23/2021 TIERRA WRIGHT DO 11/24/21 0614: Assessment/Plan Admission Diagnosis Assessment: Right leg inner thigh cellulitis with abscess failed p.o. antibiotics Chronic debility Rectal carcinoma August 2020 diagnosis status post radiation and chemotherapy Status post ileostomy takedown at Recent left-sided pneumothorax Recent left ureteral injury status post nephrostomy tube Bipolar disorder Intellectual delay Former smoker Hypertension Diabetes GERD History of DVT History of UTI Plan: IV antibiotics Surgery appreciated Monitor closely Admission Status: Inpatient Order (span 2 midnights) Reason for Inpatient Admission: Abscess Supervisory-Addendum Brief Verification & Attestation Participated in pt care: history, MDM, physical Personally performed: exam, history, MDM, supervision of care Care discussed with: Medical Student Procedures: n/a Results interpretation: Verified all documentation Verification and Attestation of Medical Student E/M Service A medical student performed and documented this service in my presence. I reviewed and verified all information documented by the medical student and made modifications to such information, when appropriate. I personally performed the physical exam and medical decision making. Tierra Wright, Nov 24, 2021,06:14 PIERRE RUSSO Nov 23, 2021 12:52 TIERRA WRIGHT DO Nov 24, 2021 06:14
[2021-11-23] MEDS ORDERED: DULoxetine 30 MG (CYMBALTA) CAP PO NR (14:00)
[2021-11-23] MEDS: LATANOPROST 0.005% (XALATAN) OPHTH SOLN 2.5 ML OS SCH (20:12)
[2021-11-23] MEDS: BRIMONIDINE 0.2% (ALPHAGAN) OPHTH SOLN 5 ML BTL OS SCH (20:13)
[2021-11-23] MEDS: OXcarbazepine (TRILEPTAL) 300 MG TAB PO SCH (20:13)
[2021-11-23] MEDS: TIMOLOL MALEATE 0.5% 5 ML (TIMOPTIC) BTL OS SCH (20:13)
[2021-11-23] MEDS: OXYBUTYNIN (DITROPAN) 5 MG TAB PO SCH (20:13)
[2021-11-23] MEDS ORDERED: NON-FORMULARY MEDICATION 1 EA EA (Oxcarbazepine 600 MG) PO SCH (21:00)
[2021-11-23] MEDS: VANCOMYCIN 1250 MG/NS 250 ML IVPB IV SCH ×2 (22:12)
[2021-11-24] VITALS (7 sets, daily range): BP systolic 118–158; BP diastolic 65–90
[2021-11-24] MEDS: MEROPENEM 500 MG/NS 100 ML IVPB IV SCH ×4 (01:41→08:34)
[2021-11-24] MEDS: LACTATED RINGERS 1,000 ML IV SCH ×2 (04:36→11:43)
[2021-11-24 06:04] LABS: BASOPHILS % (AUTO) 0 % (0-10); EOSINOPHILS # (AUTO) 0.2 10^3/uL (0.0-0.3); EOSINOPHILS % (AUTO) 3 % (0-10); HEMATOCRIT 29 % (40-54); HEMOGLOBIN 8.9 g/dL (13.3-17.7); LYMPHOCYTES % (AUTO) 17 % (12-44); MEAN CORPUSCULAR HEMOGLOBIN 25 pg (25-34); MEAN CORPUSCULAR HGB CONC 31 g/dL (32-36); MEAN CORPUSCULAR VOLUME 82 fL (80-99); MEAN PLATELET VOLUME 8.5 fL (9.0-12.2); MONOCYTES # (AUTO) 0.4 10^3/uL (0.0-1.0); MONOCYTES % (AUTO) 7 % (0-12); NEUTROPHILS # (AUTO) 4.2 10^3/uL (1.8-7.8); NEUTROPHILS % (AUTO) 72 % (42-75); PLATELET COUNT 233 10^3/uL (130-400); WHITE BLOOD COUNT 5.9 10^3/uL (4.3-11.0)
[2021-11-24 06:12] LABS: POTASSIUM 3.6 MMOL/L (3.6-5.0)
[2021-11-24 06:14] LABS: CALCIUM 9.1 MG/DL (8.5-10.1)
[2021-11-24 06:15] LABS: TOTAL PROTEIN 6.5 GM/DL (6.4-8.2)
[2021-11-24 06:17] LABS: BILIRUBIN,TOTAL 0.2 MG/DL (0.1-1.0)
[2021-11-24 06:18] LABS: CREATININE SERUM 1.56 MG/DL (0.60-1.30)
--- NOTE | 2021-11-24 06:33 | Progress Note - Hospitalist ---
Subjective HPI/CC On Admission Date Seen by Provider: Nov 24, 2021 Time Seen by Provider: 11:00 CC: Right leg cellulitis HPI 51yo Male presented to the ED due to a wound on his right leg. The patient had been in the ED earlier in the week and he was informed that the wound on his right inner thigh was the result of being bitten by a brown recluse spider. He was discharged on medication for the bite but is worried that it is now getting worse. He was not in any pain from the wound at the time of admission as well as the morning of 11/23/2021. He is currently receiving IV abx for the wound. Surgery has been consulted. Subjective/Events-last exam MRSA wound culture Appreciate general surgery no evidence of incision and drainage requirement Will ambulate around Hep-Lock IV fluid Review of Systems Musculoskeletal: leg pain Focused Exam Lactate Level 11/23/21 01:03: Lactic Acid Level 0.61 Objective Exam Vital Signs Vital Signs Date Time Temp Pulse Resp B/P (MAP) Pulse Ox O2 Delivery O2 Flow Rate FiO2 11/24/21 12:26 79 11/24/21 12:02 36.3 18 118/74 (89) 100 Room Air Capillary Refill : Less Than 3 Seconds General Appearance: No Apparent Distress, WD/WN, Chronically ill Respiratory: Lungs Clear, Normal Breath Sounds Cardiovascular: Regular Rate, Rhythm Extremity: Other (Improvement right inner thigh abscess) Neurologic/Psychiatric: Alert, Oriented x3, No Motor/Sensory Deficits, Normal Mood/Affect Results/Procedures Lab Laboratory Tests 11/24/21 05:55 Patient resulted labs reviewed. Assessment/Plan Assessment and Plan Assess & Plan/Chief Complaint Assessment: Right leg inner thigh cellulitis with abscess failed p.o. antibiotics Chronic debility Rectal carcinoma August 2020 diagnosis status post radiation and chemotherapy Status post ileostomy takedown at Recent left-sided pneumothorax Recent left ureteral injury status post nephrostomy tube Bipolar disorder Intellectual delay Former smoker Hypertension Diabetes GERD History of DVT History of UTI Plan: ELTON meropenem Continue vancomycin RADHA MCKAY DO Nov 24, 2021 06:33
--- NOTE | 2021-11-24 07:44 | Progress Note - Surgery ---
BETITOPEÑA 11/24/21 0744: Subjective Date Seen by a Provider: Nov 24, 2021 Time Seen by a Provider: 07:40 Subjective/Events-last exam Pt is resting comfortably in bed. Pt states that he is experiencing some mild pain with movement but otherwise has no complaints. Pt's wound culture showed gram positive cocci in chains. Pt states that he is still voiding and having bowel movements. Pt denies any n/v, CP, SOB, and sweats. Pt had an ultrasound of the RLE on 11/23 that showed subcutaneous edema but no well-formed fluid collections were seen and there was no abscess. Review of Systems General: No Chills, No Night Sweats HEENT: No Head Aches, No Visual Changes Pulmonary: No Dyspnea, No Cough Cardiovascular: No: Chest Pain, Palpitations Gastrointestinal: No: Nausea, Vomiting Genitourinary: No Dysuria, No Frequency Musculoskeletal: No: neck pain, shoulder pain Neurological: No: Weakness, Numbness Focused Exam Lactate Level 11/23/21 01:03: Lactic Acid Level 0.61 Objective Exam Vital Signs Date Time Temp Pulse Resp B/P (MAP) Pulse Ox O2 Delivery O2 Flow Rate FiO2 11/24/21 07:00 67 11/24/21 04:00 36.8 75 16 126/75 (92) 97 Room Air 11/24/21 01:00 80 11/24/21 00:00 36.8 66 16 122/77 (92) 98 Room Air 11/23/21 20:13 37.8 11/23/21 20:04 37.8 101 19 146/73 (97) 94 Room Air 11/23/21 20:00 Room Air 11/23/21 19:00 100 11/23/21 16:39 37.6 87 21 157/89 (111) 94 Room Air 11/23/21 12:01 37.7 92 18 166/95 (118) 98 Room Air 11/23/21 09:41 37.1 86 19 162/95 (117) 85 Room Air 11/23/21 08:00 37.1 86 19 162/95 (117) 85 Room Air I & O 11/24/21 06:59 Intake Total 3542.5 ml Balance 3542.5 ml Capillary Refill : Less Than 3 Seconds General Appearance: No Apparent Distress, Obese HEENT: PERRL/EOMI, Normal ENT Inspection Respiratory: No Accessory Muscle Use, No Respiratory Distress Cardiovascular: No Edema, Normal Peripheral Pulses Gastrointestinal: non tender, soft Extremity: Inflammation (Right upper thigh erythema and pustule with induration -erythema and induration improved) Neurologic/Psychiatric: Alert, Oriented x3 Skin: Normal Color, Warm/Dry Lymphatic: No Adenopathy Results Lab Laboratory Tests 11/24/21 05:55: White Blood Count 5.9, Red Blood Count 3.51L, Hemoglobin 8.9L, Hematocrit 29L, Mean Corpuscular Volume 82, Mean Corpuscular Hemoglobin 25, Mean Corpuscular Hemoglobin Concent 31L, Red Cell Distribution Width 15.9H, Platelet Count 233, Mean Platelet Volume 8.5L, Immature Granulocyte % (Auto) 1, Neutrophils (%) (Auto) 72, Lymphocytes (%) (Auto) 17, Monocytes (%) (Auto) 7, Eosinophils (%) (Auto) 3, Basophils (%) (Auto) 0, Neutrophils # (Auto) 4.2, Lymphocytes # (Auto) 1.0, Monocytes # (Auto) 0.4, Eosinophils # (Auto) 0.2, Basophils # (Auto) 0.0, Immature Granulocyte # (Auto) 0.1, Sodium Level 142, Potassium Level 3.6, Chloride Level 106, Carbon Dioxide Level 23, Anion Gap 13, Blood Urea Nitrogen 26H, Creatinine 1.56H, Estimat Glomerular Filtration Rate 54, BUN/Creatinine Ratio 17, Glucose Level 79, Calcium Level 9.1, Corrected Calcium 9.9, Total Bilirubin 0.2, Aspartate Amino Transf (AST/SGOT) 18, Alanine Aminotransferase (ALT/SGPT) 21, Alkaline Phosphatase 90, Total Protein 6.5, Albumin 3.0L Microbiology 11/23/21 Gram Stain - Final, Resulted 11/23/21 Wound Culture - Preliminary, Resulted Culture In Progress Assessment/Plan Assessment/Plan Assessment/Plan right thigh cellulitis obesity morbid history of rectal cancer. continue abx no abscess formation yet, but if does may need surgical intervention will continue to follow. ISSA EATON DO 11/24/21 1153: Subjective Subjective/Events-last exam Patient seen in his chair. States his leg is feeling little bit better. No drainage from the area. Erythema has decreased slightly. Denies any other complaints at this time denies nausea vomiting fever sweats chills shortness of breath or chest pain. Objective Exam General Appearance: No Apparent Distress, Obese HEENT: PERRL/EOMI, Normal ENT Inspection Neck: Non Tender, Supple Respiratory: Chest Non Tender, No Accessory Muscle Use, No Respiratory Distress Cardiovascular: Regular Rate, Rhythm, No JVD Gastrointestinal: non tender, soft Extremity: Inflammation (Right upper thigh erythema and superficial wound. induration improved) Neurologic/Psychiatric: Alert, Oriented x3 Skin: Normal Color, Warm/Dry (skin changes right thigh as above) Lymphatic: No Adenopathy Assessment/Plan Assessment/Plan Assessment/Plan right thigh cellulitis obesity morbid history of rectal cancer. continue abx no abscess formation yet, but if does may need surgical intervention will continue to follow. improved slightly today Supervisory-Addendum Brief Verification & Attestation Participated in pt care: history, MDM, physical Personally performed: exam, history, MDM, supervision of care Care discussed with: Medical Student Procedures: n/a Results interpretation: Verified all documentation Verification and Attestation of Medical Student E/M Service A medical student performed and documented this service in my presence. I reviewed and verified all information documented by the medical student and made modifications to such information, when appropriate. I personally performed the physical exam and medical decision making. Issa Eaton, Nov 24, 2021,11:53 PEÑA CISSE Nov 24, 2021 07:44 ISSA EATON DO Nov 24, 2021 11:53
[2021-11-24] MEDS: TIMOLOL MALEATE 0.5% 5 ML (TIMOPTIC) BTL OS SCH ×2 (08:34→20:36)
[2021-11-24] MEDS: BRIMONIDINE 0.2% (ALPHAGAN) OPHTH SOLN 5 ML BTL OS SCH ×2 (08:34→20:36)
[2021-11-24] MEDS: OXcarbazepine (TRILEPTAL) 300 MG TAB PO SCH ×2 (08:35→20:35)
[2021-11-24] MEDS: DULoxetine 30 MG (CYMBALTA) CAP PO SCH (08:35)
[2021-11-24] MEDS: TAMSULOSIN 0.4 MG (FLOMAX) CAP PO SCH (08:35)
[2021-11-24] MEDS: KCL 10 MEQ TAB (MICRO K) PO SCH (08:35)
[2021-11-24] MEDS: OXYBUTYNIN (DITROPAN) 5 MG TAB PO SCH ×2 (08:35→20:35)
[2021-11-24] MEDS: SODIUM BICARBONATE 650 MG TABLET PO SCH ×3 (08:35→20:35)
[2021-11-24] MEDS ORDERED: OXCARBAZEPINE 900 MG PO SCH (09:00)
[2021-11-24] MEDS ORDERED: TROUGH ORDER-PHARMACY XX ONE (09:00)
[2021-11-24] MEDS: VANCOMYCIN 1250 MG/NS 250 ML IVPB IV SCH ×2 (10:10)
[2021-11-24] MEDS: LATANOPROST 0.005% (XALATAN) OPHTH SOLN 2.5 ML OS SCH (20:36)
[2021-11-25 04:02] VITALS: BP 132/63
[2021-11-25 05:41] LABS: BASOPHILS % (AUTO) 0 % (0-10); EOSINOPHILS # (AUTO) 0.3 10^3/uL (0.0-0.3); EOSINOPHILS % (AUTO) 3 % (0-10); HEMATOCRIT 31 % (40-54); HEMOGLOBIN 9.7 g/dL (13.3-17.7); LYMPHOCYTES # (AUTO) 0.9 10^3/uL (1.0-4.0); LYMPHOCYTES % (AUTO) 12 % (12-44); MEAN CORPUSCULAR HEMOGLOBIN 26 pg (25-34); MEAN CORPUSCULAR HGB CONC 31 g/dL (32-36); MEAN CORPUSCULAR VOLUME 81 fL (80-99); MEAN PLATELET VOLUME 8.6 fL (9.0-12.2); MONOCYTES # (AUTO) 0.6 10^3/uL (0.0-1.0); MONOCYTES % (AUTO) 7 % (0-12); NEUTROPHILS # (AUTO) 6.1 10^3/uL (1.8-7.8); NEUTROPHILS % (AUTO) 76 % (42-75); PLATELET COUNT 269 10^3/uL (130-400)
[2021-11-25 05:57] LABS: ALBUMIN 3.2 GM/DL (3.2-4.5); POTASSIUM 3.6 MMOL/L (3.6-5.0)
[2021-11-25 05:58] LABS: CALCIUM 9.2 MG/DL (8.5-10.1)
[2021-11-25] MEDS ORDERED: TROUGH ORDER-PHARMACY XX NR (06:00)
[2021-11-25 06:02] LABS: BILIRUBIN,TOTAL 0.2 MG/DL (0.1-1.0)
[2021-11-25 06:03] LABS: CREATININE SERUM 1.53 MG/DL (0.60-1.30)
[2021-11-25 06:12] LABS: VANCOMYCIN,TROUGH 18.1 UG/ML (10.0-20.0)
--- NOTE | 2021-11-25 07:32 | Progress Note - Hospitalist ---
Subjective HPI/CC On Admission Date Seen by Provider: Nov 25, 2021 Time Seen by Provider: 11:00 CC: Right leg cellulitis HPI 51yo Male presented to the ED due to a wound on his right leg. The patient had been in the ED earlier in the week and he was informed that the wound on his right inner thigh was the result of being bitten by a brown recluse spider. He was discharged on medication for the bite but is worried that it is now getting worse. He was not in any pain from the wound at the time of admission as well as the morning of 11/23/2021. He is currently receiving IV abx for the wound. Surgery has been consulted. Subjective/Events-last exam Patient doing well IV antibiotics continues Reviewed labs Review of Systems General: Fatigue, Malaise Musculoskeletal: leg pain Focused Exam Lactate Level 11/23/21 01:03: Lactic Acid Level 0.61 Objective Exam Vital Signs Vital Signs Date Time Temp Pulse Resp B/P (MAP) Pulse Ox O2 Delivery O2 Flow Rate FiO2 11/25/21 19:40 36.5 86 20 144/77 (99) 95 Room Air Capillary Refill : Less Than 3 Seconds General Appearance: No Apparent Distress, WD/WN, Chronically ill Respiratory: Lungs Clear, Normal Breath Sounds Cardiovascular: Regular Rate, Rhythm Neurologic/Psychiatric: Alert, Oriented x3, No Motor/Sensory Deficits, Normal Mood/Affect Results/Procedures Lab Laboratory Tests 11/25/21 05:35 Patient resulted labs reviewed. Assessment/Plan Assessment and Plan Assess & Plan/Chief Complaint Assessment: Right leg inner thigh cellulitis with abscess failed p.o. antibiotics Chronic debility Rectal carcinoma August 2020 diagnosis status post radiation and chemotherapy Status post ileostomy takedown at Recent left-sided pneumothorax Recent left ureteral injury status post nephrostomy tube Bipolar disorder Intellectual delay Former smoker Hypertension Diabetes GERD History of DVT History of UTI Plan: ELTON meropenem Continue vancomycin RADHA MCKAY DO Nov 25, 2021 07:32
--- NOTE | 2021-11-25 07:50 | Progress Note - Surgery ---
KEVINFREDERICKPEÑA [place] 11/25/21 0750: Subjective Date Seen by a Provider: Nov 25, 2021 Time Seen by a Provider: 07:47 Subjective/Events-last exam Pt is sleeping comfortably. Pt states that he is having no pain and has no complaints at this time. Right inner thigh erythema and induration continues to improve. Denies n/v, CP, SOB, and sweats. Review of Systems General: No Chills, No Night Sweats HEENT: No Head Aches, No Visual Changes Pulmonary: No Dyspnea, No Cough Cardiovascular: No: Chest Pain, Palpitations Gastrointestinal: No: Nausea, Vomiting Genitourinary: No Dysuria, No Frequency Musculoskeletal: No: neck pain, shoulder pain Neurological: No: Weakness, Numbness Focused Exam Lactate Level 11/23/21 01:03: Lactic Acid Level 0.61 Objective Exam Vital Signs Date Time Temp Pulse Resp B/P (MAP) Pulse Ox O2 Delivery O2 Flow Rate FiO2 11/25/21 04:02 36.5 87 18 132/63 (86) 97 Room Air 11/25/21 01:00 83 11/24/21 23:35 36.8 76 18 130/65 (86) 98 Room Air 11/24/21 20:00 Room Air 11/24/21 19:24 36.4 87 18 131/80 (97) 97 Room Air 11/24/21 19:00 86 11/24/21 15:30 36.2 85 18 158/79 (105) 100 Room Air 11/24/21 12:26 79 11/24/21 12:02 36.3 88 18 118/74 (89) 100 Room Air 11/24/21 08:01 36.3 78 17 133/90 (104) 97 Room Air 11/24/21 08:00 Room Air I & O 11/25/21 07:00 Intake Total 2230 ml Balance 2230 ml Capillary Refill : Less Than 3 Seconds General Appearance: No Apparent Distress, WD/WN, Chronically ill HEENT: PERRL/EOMI, Normal ENT Inspection Neck: Non Tender, Supple Respiratory: No Accessory Muscle Use, No Respiratory Distress Cardiovascular: No JVD, Normal Peripheral Pulses Gastrointestinal: non tender, soft Extremity: Other (Improvement right inner thigh abscess) Neurologic/Psychiatric: Alert, Oriented x3, No Motor/Sensory Deficits, Normal Mood/Affect Skin: Normal Color, Warm/Dry (skin changes right thigh as above) Lymphatic: No Adenopathy Results Lab Laboratory Tests 11/24/21 09:18: Vancomycin Level Trough 32.1*H 11/25/21 05:35: Vancomycin Level Trough 18.1, White Blood Count 8.0, Red Blood Count 3.81L, Hemoglobin 9.7L, Hematocrit 31L, Mean Corpuscular Volume 81, Mean Corpuscular Hemoglobin 26, Mean Corpuscular Hemoglobin Concent 31L, Red Cell Distribution Width 15.9H, Platelet Count 269, Mean Platelet Volume 8.6L, Immature Granulocyte % (Auto) 1, Neutrophils (%) (Auto) 76H, Lymphocytes (%) (Auto) 12, Monocytes (%) (Auto) 7, Eosinophils (%) (Auto) 3, Basophils (%) (Auto) 0, Neutrophils # (Auto) 6.1, Lymphocytes # (Auto) 0.9L, Monocytes # (Auto) 0.6, Eosinophils # (Auto) 0.3, Basophils # (Auto) 0.0, Immature Granulocyte # (Auto) 0.1, Sodium Level 142, Potassium Level 3.6, Chloride Level 105, Carbon Dioxide Level 23, Anion Gap 14, Blood Urea Nitrogen 25H, Creatinine 1.53H, Estimat Glomerular Filtration Rate 55, BUN/Creatinine Ratio 16, Glucose Level 85, Calcium Level 9.2, Corrected Calcium 9.8, Total Bilirubin 0.2, Aspartate Amino Transf (AST/SGOT) 14, Alanine Aminotransferase (ALT/SGPT) 18, Alkaline Phosphatase 91, Total Protein 7.0, Albumin 3.2 Microbiology 11/23/21 Blood Culture - Preliminary, Resulted No growth 11/23/21 Gram Stain - Final, Resulted 11/23/21 Wound Culture - Preliminary, Resulted Staphylococcus aureus Assessment/Plan Assessment/Plan Assessment/Plan right thigh cellulitis obesity morbid history of rectal cancer. continue abx no abscess formation yet, but if does may need surgical intervention will continue to follow. Erthyema continues to improve ISSA EATON DO 11/25/21 1114: Subjective Subjective/Events-last exam Leg improving. Not having hardly any pain in the area. Redness decreasing. Denies n/v fever sweats chills shortness of breath or chest pain. Objective Exam General Appearance: No Apparent Distress, WD/WN, Chronically ill, Obese HEENT: PERRL/EOMI, Normal ENT Inspection Neck: Non Tender, Supple Respiratory: Chest Non Tender, No Accessory Muscle Use, No Respiratory Distress Cardiovascular: No JVD, Normal Peripheral Pulses Gastrointestinal: non tender, soft Extremity: Other (erythema improving, less induration superfical wound decreasing in size) Neurologic/Psychiatric: Alert, Oriented x3, No Motor/Sensory Deficits, Normal Mood/Affect Skin: Normal Color, Warm/Dry (skin changes right thigh as above) Lymphatic: No Adenopathy Assessment/Plan Assessment/Plan Assessment/Plan right thigh cellulitis obesity morbid history of rectal cancer. continue abx no abscess formation yet, but if does may need surgical intervention will continue to follow. Erthyema continues to improve Supervisory-Addendum Brief Verification & Attestation Participated in pt care: history, MDM, physical Personally performed: exam, history, MDM, supervision of care Care discussed with: Medical Student Procedures: n/a Results interpretation: Verified all documentation Verification and Attestation of Medical Student E/M Service A medical student performed and documented this service in my presence. I reviewed and verified all information documented by the medical student and made modifications to such information, when appropriate. I personally performed the physical exam and medical decision making. Issa Eaton, Nov 25, 2021,11:14 PEÑA CISSE Nov 25, 2021 07:50 ISSA EATON DO Nov 25, 2021 11:14
[2021-11-25 08:00] VITALS: BP 149/82
[2021-11-25] MEDS: DULoxetine 30 MG (CYMBALTA) CAP PO SCH (09:11)
[2021-11-25] MEDS: OXcarbazepine (TRILEPTAL) 300 MG TAB PO SCH ×2 (09:13→20:24)
[2021-11-25] MEDS: KCL 10 MEQ TAB (MICRO K) PO SCH (09:13)
[2021-11-25] MEDS: OXYBUTYNIN (DITROPAN) 5 MG TAB PO SCH ×2 (09:13→20:24)
[2021-11-25] MEDS: SODIUM BICARBONATE 650 MG TABLET PO SCH ×3 (09:13→20:24)
[2021-11-25] MEDS: BRIMONIDINE 0.2% (ALPHAGAN) OPHTH SOLN 5 ML BTL OS SCH ×2 (09:14→20:23)
[2021-11-25] MEDS: TIMOLOL MALEATE 0.5% 5 ML (TIMOPTIC) BTL OS SCH ×2 (09:14→20:23)
[2021-11-25] MEDS: TAMSULOSIN 0.4 MG (FLOMAX) CAP PO SCH (09:14)
[2021-11-25] MEDS: VANCOMYCIN 1250 MG/NS 250 ML IVPB IV SCH ×2 (09:22)
[2021-11-25 11:38] VITALS: BP 130/81
[2021-11-25 16:05] VITALS: BP 127/60
[2021-11-25 19:40] VITALS: BP 144/77
[2021-11-25] MEDS: LATANOPROST 0.005% (XALATAN) OPHTH SOLN 2.5 ML OS SCH (20:24)
[2021-11-25] MEDS: ENOXAPARIN 40 MG/0.4 ML (LOVENOX) SYR SC SCH (22:09)
[2021-11-26] VITALS (7 sets, daily range): BP systolic 127–181; BP diastolic 68–90
[2021-11-26 05:53] LABS: BASOPHILS % (AUTO) 0 % (0-10); EOSINOPHILS # (AUTO) 0.2 10^3/uL (0.0-0.3); EOSINOPHILS % (AUTO) 3 % (0-10); HEMATOCRIT 31 % (40-54); HEMOGLOBIN 9.8 g/dL (13.3-17.7); LYMPHOCYTES # (AUTO) 0.9 10^3/uL (1.0-4.0); LYMPHOCYTES % (AUTO) 12 % (12-44); MEAN CORPUSCULAR HEMOGLOBIN 26 pg (25-34); MEAN CORPUSCULAR HGB CONC 31 g/dL (32-36); MEAN CORPUSCULAR VOLUME 81 fL (80-99); MEAN PLATELET VOLUME 8.4 fL (9.0-12.2); MONOCYTES # (AUTO) 0.6 10^3/uL (0.0-1.0); MONOCYTES % (AUTO) 7 % (0-12); NEUTROPHILS % (AUTO) 78 % (42-75); PLATELET COUNT 259 10^3/uL (130-400); WHITE BLOOD COUNT 7.8 10^3/uL (4.3-11.0)
[2021-11-26 06:13] LABS: ALBUMIN 3.2 GM/DL (3.2-4.5); POTASSIUM 3.8 MMOL/L (3.6-5.0)
[2021-11-26 06:14] LABS: CALCIUM 9.6 MG/DL (8.5-10.1)
[2021-11-26 06:17] LABS: BILIRUBIN,TOTAL 0.2 MG/DL (0.1-1.0)
[2021-11-26 06:19] LABS: CREATININE SERUM 1.71 MG/DL (0.60-1.30)
--- NOTE | 2021-11-26 07:28 | Progress Note - Surgery ---
[place]A [place] 11/26/21 0728: Subjective Date Seen by a Provider: Nov 26, 2021 Time Seen by a Provider: 07:23 Subjective/Events-last exam Pt is resting comfortably in bed. Pt states that he is experiencing no pain today. Erythema continues to improve on right upper thigh wound. Pt has no other complaints. Denies n/v, CP, SOB, and sweats. Review of Systems General: No Chills, No Night Sweats HEENT: No Head Aches, No Visual Changes Pulmonary: No Dyspnea, No Cough Cardiovascular: No: Chest Pain, Palpitations Gastrointestinal: No: Nausea, Vomiting, Abdominal Pain Genitourinary: No Dysuria, No Frequency Musculoskeletal: No: neck pain, shoulder pain Neurological: No: Weakness, Numbness Objective Exam Vital Signs Date Time Temp Pulse Resp B/P (MAP) Pulse Ox O2 Delivery O2 Flow Rate FiO2 11/26/21 04:00 36.3 87 16 160/90 (113) 96 Room Air 11/26/21 01:00 81 11/26/21 00:00 36.5 82 16 139/87 (104) 100 Room Air 11/25/21 20:38 Room Air 11/25/21 19:40 36.5 86 20 144/77 (99) 95 Room Air 11/25/21 19:00 75 11/25/21 16:05 36.4 83 20 127/60 (82) 98 Room Air 11/25/21 13:39 84 11/25/21 11:38 36.4 86 18 130/81 (97) 96 11/25/21 08:00 Room Air 11/25/21 08:00 36.6 83 16 149/82 (104) 99 I & O 11/26/21 07:00 Intake Total 2000 ml Output Total 350 ml Balance 1650 ml Capillary Refill : Less Than 3 Seconds General Appearance: No Apparent Distress, WD/WN, Chronically ill HEENT: PERRL/EOMI, Normal ENT Inspection Neck: Non Tender, Supple Respiratory: No Accessory Muscle Use, No Respiratory Distress Cardiovascular: Regular Rate, Rhythm, No JVD Gastrointestinal: non tender, soft Extremity: No Calf Tenderness, Other (erythema improving, slight to no induration present, superfical wound decreasing in size) Neurologic/Psychiatric: Alert, Oriented x3, No Motor/Sensory Deficits, Normal Mood/Affect Skin: Normal Color, Warm/Dry (skin changes right thigh as above) Lymphatic: No Adenopathy Results Lab Laboratory Tests 11/26/21 05:45: White Blood Count 7.8, Red Blood Count 3.85L, Hemoglobin 9.8L, Hematocrit 31L, Mean Corpuscular Volume 81, Mean Corpuscular Hemoglobin 26, Mean Corpuscular Hemoglobin Concent 31L, Red Cell Distribution Width 16.2H, Platelet Count 259, Mean Platelet Volume 8.4L, Immature Granulocyte % (Auto) 1, Neutrophils (%) (Auto) 78H, Lymphocytes (%) (Auto) 12, Monocytes (%) (Auto) 7, Eosinophils (%) (Auto) 3, Basophils (%) (Auto) 0, Neutrophils # (Auto) 6.0, Lymphocytes # (Auto) 0.9L, Monocytes # (Auto) 0.6, Eosinophils # (Auto) 0.2, Basophils # (Auto) 0.0, Immature Granulocyte # (Auto) 0.1, Sodium Level 144, Potassium Level 3.8, Chloride Level 107, Carbon Dioxide Level 25, Anion Gap 12, Blood Urea Nitrogen 24H, Creatinine 1.71H, Estimat Glomerular Filtration Rate 48, BUN/Creatinine Ratio 14, Glucose Level 85, Calcium Level 9.6, Corrected Calcium 10.2H, Total Bilirubin 0.2, Aspartate Amino Transf (AST/SGOT) 15, Alanine Aminotransferase (ALT/SGPT) 14, Alkaline Phosphatase 84, Total Protein 7.0, Albumin 3.2 Microbiology 11/23/21 Blood Culture - Preliminary, Resulted No growth 11/23/21 Gram Stain - Final, Complete 11/23/21 Wound Culture - Final, Complete Staphylococcus aureus Assessment/Plan Assessment/Plan Assessment/Plan right thigh cellulitis obesity morbid history of rectal cancer. continue abx Wound continues to improve, erythema and induration significantly improved will continue to follow ISSA EATON DO 11/26/211942: Subjective Subjective/Events-last exam Patient right leg is feeling significantly better. The redness is pretty much gone away. He is not having any pain with it. Patient has no other complaints at this time. Denies any nausea vomiting fever sweats chills shortness of breath or chest pain. Objective Exam General Appearance: No Apparent Distress, Chronically ill HEENT: PERRL/EOMI, Normal ENT Inspection Neck: Full Range of Motion, Non Tender, Supple Respiratory: Chest Non Tender, No Accessory Muscle Use, No Respiratory Distress Cardiovascular: Regular Rate, Rhythm, No JVD Gastrointestinal: non tender, soft Extremity: No Calf Tenderness, Other (erythema improving, slight to no induration present, superfical wound decreasing in size) Neurologic/Psychiatric: Alert, Oriented x3, No Motor/Sensory Deficits Skin: Normal Color, Warm/Dry (skin changes right thigh as above) Lymphatic: No Adenopathy Assessment/Plan Assessment/Plan Assessment/Plan right thigh cellulitis obesity morbid history of rectal cancer. continue abx Wound continues to improve, erythema and induration significantly improved and no surgical intervention needed will sign off, call if needed. Supervisory-Addendum Brief Verification & Attestation Participated in pt care: history, MDM, physical Personally performed: exam, history, MDM, supervision of care Care discussed with: Medical Student Procedures: n/a Results interpretation: Verified all documentation Verification and Attestation of Medical Student E/M Service A medical student performed and documented this service in my presence. I reviewed and verified all information documented by the medical student and made modifications to such information, when appropriate. I personally performed the physical exam and medical decision making. Issa Eaton, Nov 26, 2021,19:41 PEÑA CISSE Nov 26, 2021 07:28 ISSA EATON DO Nov 26, 2021 19:43
[2021-11-26] MEDS: OXcarbazepine (TRILEPTAL) 300 MG TAB PO SCH ×2 (08:23→20:25)
[2021-11-26] MEDS: DULoxetine 30 MG (CYMBALTA) CAP PO SCH (08:23)
[2021-11-26] MEDS: OXYBUTYNIN (DITROPAN) 5 MG TAB PO SCH ×2 (08:23→20:26)
[2021-11-26] MEDS: TAMSULOSIN 0.4 MG (FLOMAX) CAP PO SCH (08:24)
[2021-11-26] MEDS: BRIMONIDINE 0.2% (ALPHAGAN) OPHTH SOLN 5 ML BTL OS SCH ×2 (08:24→20:27)
[2021-11-26] MEDS: ENOXAPARIN 40 MG/0.4 ML (LOVENOX) SYR SC SCH ×2 (08:24→20:24)
[2021-11-26] MEDS: SODIUM BICARBONATE 650 MG TABLET PO SCH ×3 (08:24→20:26)
[2021-11-26] MEDS: KCL 10 MEQ TAB (MICRO K) PO SCH (08:24)
[2021-11-26] MEDS: VANCOMYCIN 1250 MG/NS 250 ML IVPB IV SCH ×2 (08:24)
[2021-11-26] MEDS: TIMOLOL MALEATE 0.5% 5 ML (TIMOPTIC) BTL OS SCH ×2 (08:24→20:26)
--- NOTE | 2021-11-26 11:29 | Progress Note ---
Subjective Subjective/Events-last exam Patient states that he feels much better this AM. Pain is improving and redness on R thigh is much improved. Tolerating PO diet and ambulation Review of Systems Pulmonary: No Dyspnea, No Cough Cardiovascular: No: Chest Pain, Palpitations Neurological: No: Weakness, Incoordination Objective Exam Last Set of Vital Signs Vital Signs Date Time Temp Pulse Resp B/P (MAP) Pulse Ox O2 Delivery O2 Flow Rate FiO2 11/26/21 08:09 37.2 99 18 181/68 (105) 100 Room Air Capillary Refill : Less Than 3 Seconds I&O Intake and Output 11/26/21 00:00 Intake Total 1400 ml Output Total 350 ml Balance 1050 ml Intake Oral 1400 ml Output Urine Total 350 ml # Voids 7 # Bowel Movements 1 General: Alert, Oriented X3, No Acute Distress Lungs: Clear to Auscultation, Normal Air Movement Heart: Regular Rate, No Murmurs Abdomen: Normal Bowel Sounds, Soft, No Tenderness, No Masses Extremities: Other (Right wound, erythema has improved) Neuro: Normal Speech Results/Procedures Lab Laboratory Tests 11/26/21 05:45: White Blood Count 7.8, Red Blood Count 3.85L, Hemoglobin 9.8L, Hematocrit 31L, Mean Corpuscular Volume 81, Mean Corpuscular Hemoglobin 26, Mean Corpuscular Hemoglobin Concent 31L, Red Cell Distribution Width 16.2H, Platelet Count 259, Mean Platelet Volume 8.4L, Immature Granulocyte % (Auto) 1, Neutrophils (%) (Auto) 78H, Lymphocytes (%) (Auto) 12, Monocytes (%) (Auto) 7, Eosinophils (%) (Auto) 3, Basophils (%) (Auto) 0, Neutrophils # (Auto) 6.0, Lymphocytes # (Auto) 0.9L, Monocytes # (Auto) 0.6, Eosinophils # (Auto) 0.2, Basophils # (Auto) 0.0, Immature Granulocyte # (Auto) 0.1, Sodium Level 144, Potassium Level 3.8, Chloride Level 107, Carbon Dioxide Level 25, Anion Gap 12, Blood Urea Nitrogen 24H, Creatinine 1.71H, Estimat Glomerular Filtration Rate 48, BUN/Creatinine Ratio 14, Glucose Level 85, Calcium Level 9.6, Corrected Calcium 10.2H, Total Bilirubin 0.2, Aspartate Amino Transf (AST/SGOT) 15, Alanine Aminotransferase (ALT/SGPT) 14, Alkaline Phosphatase 84, Total Protein 7.0, Albumin 3.2 Microbiology 11/23/21 Blood Culture - Preliminary, Resulted No growth 11/23/21 Gram Stain - Final, Complete 11/23/21 Wound Culture - Final, Complete Staphylococcus aureus Assessment/Plan Assessment/Plan (1) Cellulitis of right thigh Status: Acute Assessment & Plan: 11/26: Improving, Will transition to PO antibiotic tomorrow and plan on d/c tomorrow (2) Failure of outpatient treatment Status: Acute (3) Non-insulin dependent diabetes mellitus Status: Chronic (4) HTN (hypertension) Status: Chronic Qualifiers: Qualified Codes: I10 - Essential (primary) hypertension (5) Rectal carcinoma Status: Resolved Assessment & Plan: 11/26: s/p treatment and surgery RANJANA REHMAN MD Nov 26, 2021 11:29
[2021-11-26] MEDS: LATANOPROST 0.005% (XALATAN) OPHTH SOLN 2.5 ML OS SCH (20:26)
[2021-11-27 03:34] VITALS: BP 142/79
[2021-11-27 06:26] LABS: BASOPHILS % (AUTO) 0 % (0-10); EOSINOPHILS # (AUTO) 0.2 10^3/uL (0.0-0.3); EOSINOPHILS % (AUTO) 3 % (0-10); HEMATOCRIT 32 % (40-54); HEMOGLOBIN 9.6 g/dL (13.3-17.7); LYMPHOCYTES # (AUTO) 1.1 10^3/uL (1.0-4.0); LYMPHOCYTES % (AUTO) 15 % (12-44); MEAN CORPUSCULAR HEMOGLOBIN 25 pg (25-34); MEAN CORPUSCULAR HGB CONC 30 g/dL (32-36); MEAN CORPUSCULAR VOLUME 82 fL (80-99); MEAN PLATELET VOLUME 8.6 fL (9.0-12.2); MONOCYTES # (AUTO) 0.6 10^3/uL (0.0-1.0); MONOCYTES % (AUTO) 8 % (0-12); NEUTROPHILS # (AUTO) 5.2 10^3/uL (1.8-7.8); NEUTROPHILS % (AUTO) 73 % (42-75); PLATELET COUNT 259 10^3/uL (130-400); WHITE BLOOD COUNT 7.1 10^3/uL (4.3-11.0)
[2021-11-27 07:02] LABS: ALBUMIN 3.4 GM/DL (3.2-4.5); BILIRUBIN,TOTAL 0.2 MG/DL (0.1-1.0); CALCIUM 9.5 MG/DL (8.5-10.1); CREATININE SERUM 1.67 MG/DL (0.60-1.30); POTASSIUM 3.7 MMOL/L (3.6-5.0); TOTAL PROTEIN 7.2 GM/DL (6.4-8.2)
[2021-11-27] MEDS ORDERED: TROUGH ORDER-PHARMACY XX ONE (08:00)
[2021-11-27 08:04] VITALS: BP 141/70
[2021-11-27] MEDS: DULoxetine 30 MG (CYMBALTA) CAP PO SCH (09:45)
[2021-11-27] MEDS: ENOXAPARIN 40 MG/0.4 ML (LOVENOX) SYR SC SCH ×2 (09:45→20:54)
[2021-11-27] MEDS: BRIMONIDINE 0.2% (ALPHAGAN) OPHTH SOLN 5 ML BTL OS SCH (09:46)
[2021-11-27] MEDS: OXYBUTYNIN (DITROPAN) 5 MG TAB PO SCH (09:46)
[2021-11-27] MEDS: TIMOLOL MALEATE 0.5% 5 ML (TIMOPTIC) BTL OS SCH (09:46)
[2021-11-27] MEDS: KCL 10 MEQ TAB (MICRO K) PO SCH (09:47)
[2021-11-27] MEDS: SODIUM BICARBONATE 650 MG TABLET PO SCH ×2 (09:47→13:52)
[2021-11-27] MEDS: OXcarbazepine (TRILEPTAL) 300 MG TAB PO SCH (09:47)
[2021-11-27] MEDS: TAMSULOSIN 0.4 MG (FLOMAX) CAP PO SCH (09:47)
[2021-11-27] MEDS: VANCOMYCIN 1250 MG/NS 250 ML IVPB IV SCH ×2 (10:38)
[2021-11-27 11:30] VITALS: BP 141/68
--- NOTE | 2021-11-27 12:43 | Discharge Summary ---
Diagnosis/Chief Complaint Date of Admission Nov 23, 2021 at 01:50 Date of Discharge Discharge Diagnosis Problems/Diagnosis: (1) Cellulitis of right thigh Assessment & Plan: 11/26: Improving, Will transition to PO antibiotic tomorrow and plan on d/c tomorrow Status: Acute (2) Failure of outpatient treatment Status: Acute (3) Non-insulin dependent diabetes mellitus Status: Chronic (4) HTN (hypertension) Qualifiers: Qualified Codes: I10 - Essential (primary) hypertension Status: Chronic (5) Rectal carcinoma Assessment & Plan: 11/26: s/p treatment and surgery Status: Resolved Discharge Summary-Simple/Stand Consultations Discharge Physical Examination Allergies: Coded Allergies: Penicillins (Verified Allergy, Unknown, RASH, 07/09/21) Per [facility] records (07/09/21) has tolerated amoxicillin and piperacillin/tazobactam. Vitals & I&Os Vital Sign - Last 12Hours Date Time Temp Pulse Resp B/P (MAP) Pulse Ox O2 Delivery O2 Flow Rate FiO2 11/27/21 12:40 77 11/27/21 11:30 37.0 18 141/68 (92) 100 Room Air Intake and Output 11/27/21 00:00 Intake Total 1400 ml Balance 1400 ml Hospital Course See final discharge diagnosis. Discharge Instructions to patient/family Please see electronic discharge instructions given to patient. Discharge Medications Reviewed and agree with Discharge Medication list on patient's Discharge Instruction sheet RANJANA REHMAN MD Nov 27, 2021 12:43
[2021-11-27] MEDS ORDERED: SULF-221 PO (12:46)
--- NOTE | 2021-11-27 12:47 | Discharge Summary ---
Discharge [facility] Reconcile Patient Problems Problems Reviewed?: Yes Discharge Medications New, Converted or Re-Newed RX: Transmitted to Pharmacy New Medications: Sulfamethoxazole/Trimethoprim (Bactrim Ds Tablet) 800 Mg-160 Mg Tablet 1 TAB PO BID for 7 Days, #14 TAB Continued Medications: Brimonidine Tartrate (Brimonidine Tartrate) 0.2 % Btl 1 DROP OS BID, EA Duloxetine HCl (Duloxetine HCl) 30 Mg Capsule.dr 90 MG PO DAILY, CAP TAKES 3 (30MG) CAPS Latanoprost (Xalatan) 0.005 % Drops 1 DROP OS HS, EA Oxcarbazepine (Oxcarbazepine) 600 Mg Tablet 600 MG PO HS, TAB Oxcarbazepine (Oxcarbazepine) 600 Mg Tablet 900 MG PO DAILY, TAB TAKES 1 & (600MG) TAB Oxybutynin Chloride (Oxybutynin Chloride) 5 Mg Tablet 10 MG PO BID, TAB TAKES 2 (5MG) TABS Potassium Chloride (K-Tab ER) 10 Meq Tablet.er 10 MEQ PO DAILY, TAB Sodium Bicarbonate (Sodium Bicarbonate) 650 Mg Tablet 650 MG PO TID, TAB Tamsulosin HCl (Flomax) 0.4 Mg Cap 0.4 MG PO DAILY, CAP Timolol Maleate (Timolol Maleate 0.5%) 0.5 % Drops 1 DROP OS BID, EA Tramadol HCl (Tramadol HCl) 50 Mg Tablet 50 MG PO Q6H PRN for PAIN-MODERATE (5-7), TAB Trazodone HCl (Trazodone HCl) 50 Mg Tablet 50 MG PO HS PRN for SLEEP, TAB Discontinued Medications: Doxycycline Hyclate (Doxycycline Hyclate) 100 Mg Tablet 100 MG PO BID, TAB FILLED 11-21-2021 #14/7 DAY SUPPLY Patient Instructions Goal/Follow Up Appt: [facility] with PCP Patient Instructions: - Make sure you complete all of your antibiotics as prescribed Return to The Hospital For: Worsening redness or pain in infected area Activity & Diet Discharge Diet: Cardiac Diet Activity as Tolerated: Yes RANJANA REHMAN MD Nov 27, 2021 12:47
--- NOTE | 2021-11-27 14:19 | Discharge Summary ---
Discharge Summary Reconcile Patient Problems Problems Reviewed?: Yes Instructions for Patient Via [facility], Assessment/Instructions Cellulitis Right upper thigh Failure of outpatient treatment NIDDM HTN h/o rectal cancer Physician to follow Patient: AVERYGerri Discharge Diet for Home: ADA Diet Hospital Course Date of Admission: Nov 23, 2021 at 01:50 Admission Diagnosis : Family Physician/Provider: Alfredo Álvarez Date of Discharge: 11/27/21 Discharge Diagnosis: Cellulitis Right lower extremity Failure of outpatient treatment NIDDM HTN h/o Rectal cancer Labs and Pending Lab Test: Laboratory Tests 11/27/21 06:18: White Blood Count 7.1, Red Blood Count 3.84L, Hemoglobin 9.6L, Hematocrit 32L, Mean Corpuscular Volume 82, Mean Corpuscular Hemoglobin 25, Mean Corpuscular Hemoglobin Concent 30L, Red Cell Distribution Width 16.4H, Platelet Count 259, Mean Platelet Volume 8.6L, Immature Granulocyte % (Auto) 1, Neutrophils (%) (Auto) 73, Lymphocytes (%) (Auto) 15, Monocytes (%) (Auto) 8, Eosinophils (%) ( Auto) 3, Basophils (%) (Auto) 0, Neutrophils # (Auto) 5.2, Lymphocytes # (Auto) 1.1, Monocytes # (Auto) 0.6, Eosinophils # (Auto) 0.2, Basophils # (Auto) 0.0, Immature Granulocyte # (Auto) 0.1, Sodium Level 144, Potassium Level 3.7, Chloride Level 106, Carbon Dioxide Level 26, Anion Gap 12, Blood Urea Nitrogen 25H, Creatinine 1.67H, Estimat Glomerular Filtration Rate 50, BUN/Creatinine Ratio 15, Glucose Level 87, Calcium Level 9.5, Corrected Calcium 10.0, Total Bilirubin 0.2, Aspartate Amino Transf (AST/SGOT) 12, Alanine Aminotransferase (ALT/SGPT) 12, Alkaline Phosphatase 90, Total Protein 7.2, Albumin 3.4 11/27/21 09:36: Vancomycin Level Trough 23.2H Microbiology 11/23/21 Blood Culture - Preliminary, Resulted No growth 11/23/21 Gram Stain - Final, Complete 11/23/21 Wound Culture - Final, Complete Staphylococcus aureus Home Meds Active Bactrim Ds Tablet (Sulfamethoxazole/Trimethoprim) 800 Mg-160 Mg Tablet 1 Tab PO BID 7 Days Reported Tramadol HCl 50 Mg Tablet 50 Mg PO Q6H PRN K-Tab ER (Potassium Chloride) 10 Meq Tablet.er 10 Meq PO DAILY Trazodone HCl 50 Mg Tablet 50 Mg PO HS PRN Oxybutynin Chloride 5 Mg Tablet 10 Mg PO BID TAKES 2 (5MG) TABS Flomax (Tamsulosin HCl) 0.4 Mg Cap 0.4 Mg PO DAILY Sodium Bicarbonate 650 Mg Tablet 650 Mg PO TID Brimonidine Tartrate 0.2 % Btl 1 Drop OS BID Xalatan (Latanoprost) 0.005 % Drops 1 Drop OS HS Timolol Maleate 0.5% (Timolol Maleate) 0.5 % Drops 1 Drop OS BID Duloxetine HCl 30 Mg Capsule.dr 90 Mg PO DAILY TAKES 3 (30MG) CAPS Oxcarbazepine 600 Mg Tablet 900 Mg PO DAILY TAKES 1 & (600MG) TAB Oxcarbazepine 600 Mg Tablet 600 Mg PO HS Doxycycline Hyclate 100 Mg Tablet 100 Mg PO BID FILLED 11-21-2021 #14/7 DAY SUPPLY Patient Allergies: Coded Allergies: Penicillins (Verified Allergy, Unknown, RASH, 07/09/21) Per [facility] records (07/09/21) has tolerated amoxicillin and piperacillin/tazobactam. Height (Feet): 5 Height (Inches): 6.00 Weight (Pounds): 330 Weight (Ounces): 0.0 New Medications: Sulfamethoxazole/Trimethoprim (Bactrim Ds Tablet) 800 Mg-160 Mg Tablet 1 TAB PO BID for 7 Days, #14 TAB Continued Medications: Brimonidine Tartrate (Brimonidine Tartrate) 0.2 % Btl 1 DROP OS BID, EA Duloxetine HCl (Duloxetine HCl) 30 Mg Capsule.dr 90 MG PO DAILY, CAP TAKES 3 (30MG) CAPS Latanoprost (Xalatan) 0.005 % Drops 1 DROP OS HS, EA Oxcarbazepine (Oxcarbazepine) 600 Mg Tablet 600 MG PO HS, TAB Oxcarbazepine (Oxcarbazepine) 600 Mg Tablet 900 MG PO DAILY, TAB TAKES 1 & (600MG) TAB Oxybutynin Chloride (Oxybutynin Chloride) 5 Mg Tablet 10 MG PO BID, TAB TAKES 2 (5MG) TABS Potassium Chloride (K-Tab ER) 10 Meq Tablet.er 10 MEQ PO DAILY, TAB Sodium Bicarbonate (Sodium Bicarbonate) 650 Mg Tablet 650 MG PO TID, TAB Tamsulosin HCl (Flomax) 0.4 Mg Cap 0.4 MG PO DAILY, CAP Timolol Maleate (Timolol Maleate 0.5%) 0.5 % Drops 1 DROP OS BID, EA Tramadol HCl (Tramadol HCl) 50 Mg Tablet 50 MG PO Q6H PRN for PAIN-MODERATE (5-7), TAB Trazodone HCl (Trazodone HCl) 50 Mg Tablet 50 MG PO HS PRN for SLEEP, TAB Discontinued Medications: Doxycycline Hyclate (Doxycycline Hyclate) 100 Mg Tablet 100 MG PO BID, TAB FILLED 11-21-2021 #14/7 DAY SUPPLY Home Health Need/Face to Face Date of Face to Face: Nov 27, 2021 Clinical Findings: Generalized weakness and fatigue, Unsteady gait I have seen Pt [id number]: Yes Discharged To: Home Diagnosis/Conditions: See above Patient is Homebound due to: Rich fall risk due to instabilty Homebound Status Due to the above stated illness, injury or surgical procedure (medical condition or diagnosis) and associated clinical findings, the patient is homebound because of his/her inability to leave home except with aid of a supportive device and/or person AND leaving the home requires a considerable and taxing effort or is medically contraindicated. Pt req the following assistanc: Aid of another person Home Health Nursing Orders Home Health Services Order: Nursing Services, Physical Therapy-Evaluate & Treat, Wound Care-Eval/Treat Home Health Infusion Therapy Line Start Date: Nov 23, 2021 Therapy Orders Therapy Orders: Physical Therapy Therapy Specific Orders: Gait training, Increase strength/endurance Certify Stmt I certify that this patient is under my care and that I, a nurse practitioner or a physician; a community relations assistant working with me, had a face to face encounter that - meets the physician face to face encounter requirements with this patient as dated. Discharge Physical Exam General: Alert, Oriented X3, No Acute Distress HEENT: Mucous Memb Moist/[place] Lungs: Clear to Auscultation, Normal Air Movement Heart: Regular Rate, No Murmurs Abdomen: Normal Bowel Sounds, Soft, No Tenderness, No Masses Extremities: Other (erythema and swelling improved since admission) Neuro: Normal Speech Psych/Mental Status: Mental Status NL, Mood NL GAULT,RANJANA R MD Nov 27, 2021 14:19
[2021-11-27 16:02] VITALS: BP 137/77
[2021-11-27 19:50] VITALS: BP 139/77
[2021-11-28] MEDS ORDERED: TROUGH ORDER-PHARMACY XX ONE (08:00)
--- NOTE | 2021-11-28 08:15 | ED Integumentary General ---
General Chief Complaint: Bite-Animal/Human/Insect Stated Complaint: CELLULITIS R THIGH;FAILURE OF OUTPT THERAPY Nursing Triage Note: PATIENT STATES THAT HE WAS SEEN HERE IN ER EARLIER THIS WEEK AND WAS TOLD THAT THE WOUND ON HIS RIGHT INNER THIGH WAS A BROWN RECLUSE SPIDER BITE. HE WAS GIVEN A SCRIPT TO WAREHOUSEMAN WHICH HE DID AND STATES THAT HE HAS BEEN TAKING IT, BUT HE IS CONCERNED THAT IT IS GETTING WORSE. HE DENIES ANY PAIN AT THIS TIME. Source: patient History of Present Illness Date Seen by Provider: Nov 23, 2021 Time Seen by Provider: 00:13 Allergies and Home Medications Allergies Coded Allergies: Penicillins (Verified Allergy, Unknown, RASH, 07/09/21) Per [facility] records (07/09/21) has tolerated amoxicillin and piperacillin/tazobactam. Patient Home Medication List Brimonidine Tartrate (Brimonidine Tartrate) 0.2 % Btl, 1 DROP OS BID, (Reported) Entered as Reported by: JARRET LUJAN on 11/23/21950 Last Action: Continued Duloxetine HCl (Duloxetine HCl) 30 Mg Capsule.dr, 90 MG PO DAILY, (Reported) Entered as Reported by: JARRTE LUJAN on 11/23/21950 Last Action: Continued Latanoprost (Xalatan) 0.005 % Drops, 1 DROP OS HS, (Reported) Entered as Reported by: JARRET LUJAN on 11/23/21950 Last Action: Continued Oxcarbazepine (Oxcarbazepine) 600 Mg Tablet, 600 MG PO HS, (Reported) Entered as Reported by: JARRET LUJAN on 11/23/21950 Last Action: Converted Oxcarbazepine (Oxcarbazepine) 600 Mg Tablet, 900 MG PO DAILY, (Reported) Entered as Reported by: JARRET LUJAN on 11/23/21950 Last Action: Converted Oxybutynin Chloride (Oxybutynin Chloride) 5 Mg Tablet, 10 MG PO BID, (Reported) Entered as Reported by: JARRET LUJAN on 11/23/21950 Last Action: Continued Potassium Chloride (K-Tab ER) 10 Meq Tablet.er, 10 MEQ PO DAILY, (Reported) Entered as Reported by: JARRET LUJAN on 11/23/21950 Last Action: Continued Sodium Bicarbonate (Sodium Bicarbonate) 650 Mg Tablet, 650 MG PO TID, (Reported) Entered as Reported by: JARRET LUJAN on 11/23/21950 Last Action: Continued Sulfamethoxazole/Trimethoprim (Bactrim Ds Tablet) 800 Mg-160 Mg Tablet, 1 TAB PO BID Prescribed by: RANJANA REHMAN on 11/27/21 1246 Tamsulosin HCl (Flomax) 0.4 Mg Cap, 0.4 MG PO DAILY, (Reported) Entered as Reported by: JARRET LUJAN on 11/23/21950 Last Action: Continued Timolol Maleate (Timolol Maleate 0.5%) 0.5 % Drops, 1 DROP OS BID, (Reported) Entered as Reported by: JARRET LUJAN on 11/23/21950 Last Action: Continued Tramadol HCl (Tramadol HCl) 50 Mg Tablet, 50 MG PO Q6H PRN for PAIN-MODERATE (5- 7), (Reported) Entered as Reported by: JARRET LUJAN on 11/23/21950 Last Action: Continued Trazodone HCl (Trazodone HCl) 50 Mg Tablet, 50 MG PO HS PRN for SLEEP, (Reported) Entered as Reported by: JARRET LUJAN on 11/23/21950 Last Action: Continued Discontinued Medications Acetaminophen (Tylenol) 325 Mg Tablet, 650 MG PO Q4H PRN for PAIN-MILD (1-4) Discontinued Reason: No Longer Taking Prescribed by: RADHA MCKAY on 07/18/211047 Last Action: Discontinued Apixaban (Eliquis) 5 Mg Tablet, 5 MG PO BID Discontinued Reason: No Longer Taking Prescribed by: RADHA MCKAY on 07/18/211047 Last Action: Discontinued Ascorbate Calcium (Vitamin C) 500 Mg Tablet, 500 MG PO DAILY Discontinued Reason: No Longer Taking Prescribed by: RADHA MCKAY on 07/18/211047 Last Action: Discontinued Brimonidine Tartrate (Alphagan P) 5 Ml Drops, 1 DROP OS BID Discontinued Reason: No Longer Taking Prescribed by: RADHA MCKAY on 07/18/211047 Last Action: Discontinued Cyanocobalamin (Vitamin B-12) (Vitamin B-12) 500 Mcg Tablet, 1,000 MCG PO DAILY Discontinued Reason: No Longer Taking Prescribed by: RADHA MCKAY on 07/18/211047 Last Action: Discontinued Diclofenac Sodium (Diclofenac Sodium) 1 % Gel..gram., 0 GM TOP QID PRN for PAIN- MILD (1-4) Discontinued Reason: No Longer Taking Prescribed by: RADHA MCKAY on 07/18/211047 Last Action: Discontinued Diphenoxylate HCl/Atropine (Lomotil 2.5-0.025 mg Tablet) 1 Each Tablet, 1 EACH PO Q12H PRN for DIARRHEA Discontinued Reason: No Longer Taking Prescribed by: RADHA MCKAY on 07/18/211048 Last Action: Discontinued Docusate Sodium (Docusate Sodium) 100 Mg Capsule, 100 MG PO BID Discontinued Reason: No Longer Taking Prescribed by: RADHA MCKAY on 07/18/211047 Last Action: Discontinued Doxycycline Hyclate (Doxycycline Hyclate) 100 Mg Tablet, 100 MG PO BID Discontinued Reason: No Longer Taking Prescribed by: CHITO RUIZ on 11/20/210 Last Action: Discontinued Doxycycline Hyclate (Doxycycline Hyclate) 100 Mg Tablet, 100 MG PO BID, (Reported) Entered as Reported by: JARRET LUJAN on 11/23/21 0966 Last Action: Held Duloxetine HCl (Cymbalta) 30 Mg Capsule.dr, 90 MG PO DAILY Discontinued Reason: No Longer Taking Prescribed by: RADHA MCKAY on 07/18/211047 Last Action: Discontinued Famotidine (Acid Stamping Operator (FAMOTIDINE)) 20 Mg Tablet, 20 MG PO BID Discontinued Reason: No Longer Taking Prescribed by: RADHA MCKAY on 07/18/211047 Last Action: Discontinued Ferrous Sulfate (Ferrous Sulfate) 325 Mg Tablet, 325 MG PO DAILY Discontinued Reason: No Longer Taking Prescribed by: RADHA MCKAY on 07/18/211047 Last Action: Discontinued Hyoscyamine Sulfate (Oscimin) 0.125 Mg Tablet, 0.125 MG PO Q4H PRN for CRAMPS Discontinued Reason: No Longer Taking Prescribed by: RADHA MCKAY on 07/18/211047 Last Action: Discontinued Lactobacillus Acidophilus/Pect (Acidophilus-Pectin Capsule) 75 Million Cell-100 Mg Capsule, 2 EACH PO TIDWM Discontinued Reason: No Longer Taking Prescribed by: RADHA MCKAY on 07/18/211047 Last Action: Discontinued Latanoprost (Xalatan) 2.5 Ml Drops, 1 DROP OS HS Discontinued Reason: No Longer Taking Prescribed by: RADHA MCKAY on 07/18/211047 Last Action: Discontinued Loperamide HCl (Loperamide) 2 Mg Capsule, 2-4 MG PO UD PRN for DIARRHEA Discontinued Reason: No Longer Taking Prescribed by: RADHA MCKAY on 07/18/211047 Last Action: Discontinued Methocarbamol (Methocarbamol) 750 Mg Tablet, 750 MG PO BID PRN for SPASMS Discontinued Reason: No Longer Taking Prescribed by: RADHA MCKAY on 07/18/211047 Last Action: Discontinued Miconazole Nitrate (Lotrimin AF) 2 % Powder, 0 GM TOP BID PRN for RASH Discontinued Reason: No Longer Taking Prescribed by: RADHA MCKAY on 07/18/211047 Last Action: Discontinued Oxcarbazepine (Oxcarbazepine) 300 Mg Tablet, 900 MG PO DAILY Discontinued Reason: No Longer Taking Prescribed by: RADHA MCKAY on 07/18/211047 Last Action: Discontinued Oxcarbazepine (Oxcarbazepine) 600 Mg Tablet, 600 MG PO HS Discontinued Reason: No Longer Taking Prescribed by: RADHA MCKAY on 07/18/211047 Last Action: Discontinued Oxybutynin Chloride (Oxybutynin Chloride) 5 Mg Tablet, 5 MG PO BID Discontinued Reason: No Longer Taking Prescribed by: RADHA MCKAY on 07/18/211047 Last Action: Discontinued Oxycodone HCl (Oxycodone HCl) 5 Mg Tablet, 5 MG PO Q4H PRN for PAIN-SEVERE (8- 10) Discontinued Reason: No Longer Taking Prescribed by: RADHA MCKAY on 07/18/211048 Last Action: Discontinued Polyethylene Glycol 3350 (Polyethylene Glycol 3350) 17 Gm Powd.pack, 17 GM PO DAILY PRN for CONSTIPATION-2ND LINE Discontinued Reason: No Longer Taking Prescribed by: RADHA MCKAY on 07/18/211047 Last Action: Discontinued Potassium Chloride (Potassium Chloride) 10 Meq Tab.er.prt, 10 MEQ PO DAILY Discontinued Reason: No Longer Taking Prescribed by: RADHA MCKAY on 07/18/211047 Last Action: Discontinued Sodium Bicarbonate (Sodium Bicarbonate) 650 Mg Tablet, 650 MG PO TID Discontinued Reason: No Longer Taking Prescribed by: RADHA MCKAY on 07/18/211047 Last Action: Discontinued Tamsulosin HCl (Flomax) 0.4 Mg Cap, 0.4 MG PO DAILY Discontinued Reason: No Longer Taking Prescribed by: RADHA MCKAY on 07/18/211047 Last Action: Discontinued Timolol Maleate (Timolol Maleate 0.5%) 5 Ml Drops, 1 DROP OS BID Discontinued Reason: No Longer Taking Prescribed by: RADHA MCKAY on 07/18/211047 Last Action: Discontinued Tramadol HCl (Tramadol HCl) 50 Mg Tablet, 50 MG PO Q8H PRN for PAIN-MODERATE (5- 7) Discontinued Reason: No Longer Taking Prescribed by: RADHA MCKAY on 07/18/211048 Last Action: Discontinued Trazodone HCl (Trazodone HCl) 50 Mg Tablet, 50 MG PO HS Discontinued Reason: No Longer Taking Prescribed by: RADHA MCKAY on 07/18/211047 Last Action: Discontinued Vitamin E Mixed (Vitamin E) 400 Unit Capsule, 400 UNIT PO DAILY Discontinued Reason: No Longer Taking Prescribed by: RADHA MCKAY on 07/18/211047 Last Action: Discontinued Past Crqbiaw-Xlihrw-Rvyped Hx Patient Social History Tobacco Use?: No Smoking Status: Never a Smoker Smokeless Tobacco Frequency: Never a User Use of E-Cig and/or Vaping dev: No Use of E-Cig and/or Vaping Bahman: Never a User Substance use?: No Alcohol Use?: No Pt feels they are or have been: No Immunizations Up To Date Influenza Vaccine Up-to-Date: Yes; Up-to-Date First/Initial COVID19 Vaccinat: MODERNA IN JUNE 2020 Second COVID19 Vaccination Marshal: JULY 2020 Third COVID19 Vaccination Date: JANUARY 2021 COVID19 Vaccine Nougat Cutter Machine: MODERNA Seasonal Allergies Seasonal Allergies: No Past Medical History Surgery/Hospitalization HX: STENTS IN BOTH KIDNEYS, bilat cateract lenses EYE, power port, colostomy revision. colon cancer Rt. chest port Surgeries: Yes (KIDNEY SX CHILD;CATARACT SURGERY;YAG CAPSULOTOMY;COLONOSCOPY/POLYPECTOMY) Rectal Respiratory: No Currently Using CPAP: No Currently Using BIPAP: No Cardiac: Yes Hypertension Neurological: Yes (PSYCH PROBLEMS) Developmental Disorder Genitourinary: Yes (KIDNEY SURGERY CHILD) Kidney Stones Gastrointestinal: Yes (COLONOSCOPY/POLYPECTOMY 201;D2021 COLON CANCER ) Polyps Musculoskeletal: No Endocrine: Yes (OBESITY) HEENT: Yes (CATARACT SURGERY; YAG CAPSULOTOMY) Cataract, Glaucoma Cancer: Yes (RECTAL) Colon Did You Recieve Any Treatments: Yes What Type of Treatment Did You: Chemotherapy, Radiation, Surgical Intervention Psychosocial: Yes (DEVELOPMENTAL DISABILITY) ADD/ADHD, Anxiety, Bipolar, Personality Disorder, Depression Integumentary: No Blood Disorders: No Family Medical History No Pertinent Family Hx Physical Exam Vital Signs Vital Signs - First Documented 11/22/21 21:25 Temp 36.8 Pulse 82 Resp 20 B/P (MAP) 167/92 (117) Pulse Ox 98 O2 Delivery Room Air Capillary Refill : Less Than 3 Seconds Progress/Results/Core Measures Results/Orders Lab Results Laboratory Tests Test 11/23/21 00:45 11/23/21 01:03 Range/Units White Blood Count 10.4 4.3-11.0 10^3/uL Red Blood Count 3.99 L 4.30-5.52 10^6/uL Hemoglobin 10.0 L 13.3-17.7 g/dL Hematocrit 33 L 40-54 % Mean Corpuscular Volume 82 80-99 fL Mean Corpuscular Hemoglobin 25 25-34 pg Mean Corpuscular Hemoglobin Concent 31 L 32-36 g/dL Red Cell Distribution Width 15.8 H 10.0-14.5 % Platelet Count 264 130-400 10^3/uL Mean Platelet Volume 8.3 L 9.0-12.2 fL Immature Granulocyte % (Auto) 1 % Neutrophils (%) (Auto) 76 H 42-75 % Lymphocytes (%) (Auto) 12 12-44 % Monocytes (%) (Auto) 8 0-12 % Eosinophils (%) (Auto) 2 0-10 % Basophils (%) (Auto) 0 0-10 % Neutrophils # (Auto) 7.9 H 1.8-7.8 10^3/uL Lymphocytes # (Auto) 1.3 1.0-4.0 10^3/uL Monocytes # (Auto) 0.8 0.0-1.0 10^3/uL Eosinophils # (Auto) 0.3 0.0-0.3 10^3/uL Basophils # (Auto) 0.0 0.0-0.1 10^3/uL Immature Granulocyte # (Auto) 0.1 0.0-0.1 10^3/uL Erythrocyte Sedimentation Rate > 140 H 0-30 MM/HR Sodium Level 140 135-145 MMOL/L Potassium Level 3.6 3.6-5.0 MMOL/L Chloride Level 103 98-107 MMOL/L Carbon Dioxide Level 23 21-32 MMOL/L Anion Gap 14 5-14 MMOL/L Blood Urea Nitrogen 27 H 7-18 MG/DL Creatinine 1.69 H 0.60-1.30 MG/DL Estimat Glomerular Filtration Rate 49 BUN/Creatinine Ratio 16 Glucose Level 90 70-105 MG/DL Calcium Level 9.5 8.5-10.1 MG/DL Corrected Calcium 9.8 8.5-10.1 MG/DL Total Bilirubin 0.3 0.1-1.0 MG/DL Aspartate Amino Transf (AST/SGOT) 13 5-34 U/L Alanine Aminotransferase (ALT/SGPT) 17 0-55 U/L Alkaline Phosphatase 100 40-136 U/L C-Reactive Protein High Sensitivity 10.88 H 0.00-0.50 MG/DL Total Protein 7.9 6.4-8.2 GM/DL Albumin 3.6 3.2-4.5 GM/DL Procalcitonin 0.14 H <0.10 NG/ML Lactic Acid Level 0.61 0.50-2.00 MMOL/L Micro Results Microbiology 11/23/21 Blood Culture - Preliminary, Resulted No growth 11/23/21 Blood Culture - Preliminary, Resulted No growth 11/23/21 Gram Stain - Final, Complete 11/23/21 Wound Culture - Final, Complete Staphylococcus aureus My Orders Orders - CHRISTIAN BROWN DO Ed Iv/Invasive Line Start (11/23/21 00:22) Cbc With Automated Diff (11/23/21 00:22) Comprehensive Metabolic Panel (11/23/21 00:22) Hs C Reactive Protein (11/23/21 00:22) Lactic Acid Analyzer (11/23/21 00:22) Procalcitonin (Pct) (11/23/21 00:22) Blood Culture (11/23/21 00:22) Wound Culture (11/23/21 00:22) Erythrocyte Sedimentation Rate (11/23/21 00:22) Meropenem (Merrem 500 Mg) (11/23/21 00:30) Vancomycin Injection (Vancomycin Injecti (11/23/21 00:30) Vital Signs/I&O 11/22/21 11/23/21 21:25 01:00 Temp 36.8 36.9 Pulse 82 81 Resp 20 20 B/P (MAP) 167/92 (117) 156/88 Pulse Ox 98 97 O2 Delivery Room Air Room Air Blood Pressure Mean: 97 Departure Departure-Patient Inst. Referrals: [facility]/ISAMAR (PCP) Primary Care Physician QUITA SAHNI (Family) Primary Care Physician Patient Instructions: Cellulitis (Skin Infection), Adult (DC) Scripts Sulfamethoxazole/Trimethoprim (Bactrim Ds Tablet) 800 Mg-160 Mg Tablet 1 TAB PO BID for 7 Days, #14 TAB Prov: RANJANA REHMAN MD 11/27/21 CHRISTIAN BROWN DO Nov 28, 2021 08:15
== END 2021-11-27 20:30 | disposition home health service (06) | DRG 603 ==
LOC: EDUNIT# 20:16 → ER 20:18 → 4TH 11-23 01:50
PROVIDERS: ADMIT Internal Medicine; ATTEND Family Medicine
DX: L03.115 Cellulitis of right lower limb (principal); Z68.41 Body mass index [BMI] 40.0-44.9, adult; E66.01 Morbid (severe) obesity due to excess calories; I12.9 Hypertensive chronic kidney disease with stage 1 through stage 4 chronic kidney disease, or unspecified chronic kidney disease; E11.22 Type 2 diabetes mellitus with diabetic chronic kidney disease; N18.9 Chronic kidney disease, unspecified; K21.9 Gastro-esophageal reflux disease without esophagitis; F89 Unspecified disorder of psychological development; F90.9 Attention-deficit hyperactivity disorder, unspecified type; F41.9 Anxiety disorder, unspecified; F31.9 Bipolar disorder, unspecified; F60.9 Personality disorder, unspecified; H54.7 Unspecified visual loss; Z85.038 Personal history of other malignant neoplasm of large intestine; Z87.891 Personal history of nicotine dependence; Z86.718 Personal history of other venous thrombosis and embolism; Z88.0 Allergy status to penicillin
CPT/HCPCS: 36415; 76881; 80053; 80202; 83605; 84145; 85025; 85652; 86141; 87040; 87070; 87077; 87186; 87205

== ENCOUNTER 2021-12-26 09:06 | Outpatient (RCR) | payer MEDICARE, MEDICAID ==
[~2021-12-26 09:06] MED LIST changes: +POTA-177 PO; +POTA10TA PO; -POTA10TA37 PO; +SULF-221 PO; +TRM50T PO
[2021-12-26 09:38] LABS: BASOPHILS % (AUTO) 0 % (0-10); EOSINOPHILS # (AUTO) 0.2 10^3/uL (0.0-0.3); EOSINOPHILS % (AUTO) 2 % (0-10); HEMATOCRIT 33 % (40-54); HEMOGLOBIN 10.5 g/dL (13.3-17.7); LYMPHOCYTES # (AUTO) 1.1 10^3/uL (1.0-4.0); LYMPHOCYTES % (AUTO) 12 % (12-44); MEAN CORPUSCULAR HEMOGLOBIN 26 pg (25-34); MEAN CORPUSCULAR HGB CONC 32 g/dL (32-36); MEAN CORPUSCULAR VOLUME 84 fL (80-99); MEAN PLATELET VOLUME 8.5 fL (9.0-12.2); MONOCYTES # (AUTO) 0.8 10^3/uL (0.0-1.0); MONOCYTES % (AUTO) 9 % (0-12); NEUTROPHILS # (AUTO) 7.3 10^3/uL (1.8-7.8); NEUTROPHILS % (AUTO) 76 % (42-75); PLATELET COUNT 248 10^3/uL (130-400); WHITE BLOOD COUNT 9.6 10^3/uL (4.3-11.0)
[2021-12-26 10:05] LABS: ALBUMIN 3.7 GM/DL (3.2-4.5); BILIRUBIN,TOTAL 0.3 MG/DL (0.1-1.0); CALCIUM 9.5 MG/DL (8.5-10.1); CREATININE SERUM 1.98 MG/DL (0.60-1.30); POTASSIUM 3.5 MMOL/L (3.6-5.0); TOTAL PROTEIN 7.9 GM/DL (6.4-8.2)
== END 2021-12-28 | disposition home or self-care (01) ==
LOC: ONC 09:06
PROVIDERS: ATTEND Internal Medicine Hematology & Oncology
DX: Z45.2 Encounter for adjustment and management of vascular access device (principal); Z85.038 Personal history of other malignant neoplasm of large intestine; Z90.5 Acquired absence of kidney
CPT/HCPCS: 36591; 80053; 82378; 85025

== ENCOUNTER 2022-01-03 14:22 | Outpatient (RCR) | payer MEDICARE, MEDICAID ==
[2022-01-16] MEDS ORDERED: LISI20TA26 PO (14:51)
== END 2022-01-28 | disposition home or self-care (01) ==
LOC: ONC 14:22
PROVIDERS: ATTEND Internal Medicine Hematology & Oncology
DX: C20 Malignant neoplasm of rectum (principal); D50.9 Iron deficiency anemia, unspecified; E66.01 Morbid (severe) obesity due to excess calories; N20.0 Calculus of kidney; R94.5 Abnormal results of liver function studies; Z90.5 Acquired absence of kidney; Z93.2 Ileostomy status; Z86.19 Personal history of other infectious and parasitic diseases; Z98.890 Other specified postprocedural states
CPT/HCPCS: 99213

== ENCOUNTER 2022-01-10 20:13 | Emergency (ER) | payer MEDICARE, MEDICAID ==
[~2022-01-10] VITALS: Ht 170 cm; Wt 118.0 kg
--- NOTE | 2022-01-10 21:38 | Diagnostic Imaging Report ---
CLINICAL HISTORY: Fall. Right knee pain. COMPARISON: None. TECHNIQUE: 3 views of the right knee. FINDINGS: There is no acute fracture or dislocation of the right knee. Alignment is anatomic. The imaged joint spaces are preserved. No joint effusion is seen in the right knee. IMPRESSION: No acute fracture or dislocation in the right knee. Dictated by: Dictated on workstation # [id number]
--- NOTE | 2022-01-10 21:40 | Diagnostic Imaging Report ---
CLINICAL HISTORY: Fall. Right ankle pain. COMPARISON: 04/19/2019. TECHNIQUE: 3 views of the right ankle. FINDINGS: Avulsion fracture is seen involving the anterior superior aspect of the right talus. Possible additional fracture is seen in the navicular. The right ankle itself appears well aligned without acute fracture. IMPRESSION: Avulsion fracture involving the anterior superior aspect of the right talus with possible additional fracture involving the right navicular. Dictated by: Dictated on workstation # [id number]
--- NOTE | 2022-01-10 21:48 | ED Lower Extremity ---
General Chief Complaint: Lower Extremity Stated Complaint: FALL,R LEG PAIN Nursing Triage Note: FALL IN SHOWER APPROX. 1500. C/O RIGHT KNEE PAIN (RESHMA SHAFER) History of Present Illness Date Seen by Provider: Jan 10, 2022 Time Seen by Provider: 20:21 Initial Comments 51 year old male, reports he was showering at 1500 when he lost balance and fell. No head injury or LOC. He complains of right knee and ankle pain since the fall. No previous injuries to either joint. 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 Pain/Injury Location: right knee, right ankle Method of Injury: fell (RESHMA SHAFER) Allergies and Home Medications Allergies Coded Allergies: Penicillins (Verified Allergy, Unknown, RASH, 07/09/21) Per [facility] records (07/09/21) has tolerated amoxicillin and piperacillin/tazobactam. Patient Home Medication List Brimonidine Tartrate (Brimonidine Tartrate) 0.2 % Btl, 1 DROP OS BID, (Reported) Entered as Reported by: JARRET LUJAN on 11/23/21950 Duloxetine HCl (Duloxetine HCl) 30 Mg Capsule.dr, 90 MG PO DAILY, (Reported) Entered as Reported by: JARRET LUJAN on 11/23/21950 Latanoprost (Xalatan) 0.005 % Drops, 1 DROP OS HS, (Reported) Entered as Reported by: JARRET LUJAN on 11/23/21950 Oxcarbazepine (Oxcarbazepine) 600 Mg Tablet, 600 MG PO HS, (Reported) Entered as Reported by: JARRET LUJAN on 11/23/21950 Oxcarbazepine (Oxcarbazepine) 600 Mg Tablet, 900 MG PO DAILY, (Reported) Entered as Reported by: JARRET LUJAN on 11/23/21950 Oxybutynin Chloride (Oxybutynin Chloride) 5 Mg Tablet, 10 MG PO BID, (Reported) Entered as Reported by: JARRET LUJAN on 11/23/21950 Potassium Chloride (K-Tab ER) 10 Meq Tablet.er, 10 MEQ PO DAILY, (Reported) Entered as Reported by: JARRET LUJAN on 11/23/21950 Sodium Bicarbonate (Sodium Bicarbonate) 650 Mg Tablet, 650 MG PO TID, (Reported) Entered as Reported by: JARRET LUJAN on 11/23/21950 Sulfamethoxazole/Trimethoprim (Bactrim Ds Tablet) 800 Mg-160 Mg Tablet, 1 TAB PO BID Prescribed by: RANJANA REHMAN on 11/27/21 1246 Tamsulosin HCl (Flomax) 0.4 Mg Cap, 0.4 MG PO DAILY, (Reported) Entered as Reported by: JARRET LUJAN on 11/23/21 09 Timolol Maleate (Timolol Maleate 0.5%) 0.5 % Drops, 1 DROP OS BID, (Reported) Entered as Reported by: JARRET LUJAN on 11/23/21 09 Tramadol HCl (Tramadol HCl) 50 Mg Tablet, 50 MG PO Q6H PRN for PAIN-MODERATE (5- 7), (Reported) Entered as Reported by: JARRET LUJAN on 11/23/21950 Trazodone HCl (Trazodone HCl) 50 Mg Tablet, 50 MG PO HS PRN for SLEEP, (Reported) Entered as Reported by: JARRET LUJAN on 11/23/21950 Past Prpbzef-Hphvfd-Jldpvs Hx Patient Social History Tobacco Use?: No Substance use?: No Alcohol Use?: No Pt feels they are or have been: No (RESHMA SHAFER) Immunizations Up To Date First/Initial COVID19 Vaccinat: july Second COVID19 Vaccination Marshal: jan COVID19 Vaccination Date: 2021 COVID19 Vaccine Outside Plant 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 colon cancer, DEVELOPEMENTAL DISORDER, ANX/DEPRESSION, BIPOLAR Rt. chest port Surgeries: Yes (KIDNEY SX CHILD;CATARACT SURGERY;YAG CAPSULOTOMY;COLONOSCOPY/POLYPECTOMY) Abdominal, Bowel Surgery, Eye Surgery, Rectal Respiratory: No Currently Using CPAP: No Currently Using BIPAP: No Cardiac: Yes Hypertension Neurological: Yes (PSYCH PROBLEMS) Developmental Disorder Genitourinary: Yes (KIDNEY SURGERY CHILD) Kidney Stones Gastrointestinal: Yes (COLONOSCOPY/POLYPECTOMY COLON CANCER ) Polyps Musculoskeletal: No Endocrine: Yes (OBESITY) HEENT: Yes (CATARACT SURGERY; YAG CAPSULOTOMY) Cataract, Glaucoma Cancer: Yes (RECTAL) Colon Did You Recieve Any Treatments: Yes What Type of Treatment Did You: Chemotherapy, Radiation, Surgical Intervention Psychosocial: Yes (DEVELOPMENTAL DISABILITY) ADD/ADHD, Anxiety, Bipolar, Personality Disorder, Depression Integumentary: No Blood Disorders: No (RESHMA SHAFER) Family Medical History No Pertinent Family Hx (RESHMA SHAFER) Physical Exam Vital Signs Vital Signs - First Documented 01/10/22 20:21 Temp 36.9 Pulse 101 Resp 18 B/P (MAP) 174/77 (109) Pulse Ox 97 O2 Delivery Room Air (CHITO AMAYA MD) Vital Signs Capillary Refill : Less Than 3 Seconds (RESHMA SHAFER) Height, Weight, BMI Height: 5'6.00" Weight: 330lbs. 0.0oz. 149.341088kb; 40.00 BMI Method:Stated (RESHMA SHAFER) Progress/Results/Core Measures Results/Orders Vital Signs/I&O 01/10/22 01/10/22 20:21 22:13 Temp 36.9 Pulse 101 92 Resp 18 20 B/P (MAP) 174/77 (109) 160/78 Pulse Ox 97 98 O2 Delivery Room Air Room Air (CHITO AMAYA MD) Blood Pressure Mean: 109 Diagnostic Imaging Diagonstic Imaging: Xray Comments NAME: WILD IBANEZ [facility] REC#: [id number] PT STATUS: REG ER : 1970 PHYSICIAN: RESHMA SHAFER ADMIT DATE: 01/10/22/ER Signed Date of Exam:01/10/22 KNEE, RIGHT, 3 VIEWS CLINICAL HISTORY: Fall. Right knee pain. COMPARISON: None. TECHNIQUE: 3 views of the right knee. FINDINGS: There is no acute fracture or dislocation of the right knee. Alignment is anatomic. The imaged joint spaces are preserved. No joint effusion is seen in the right knee. IMPRESSION: No acute fracture or dislocation in the right knee. Dictated by: Dictated on workstation # [id number] Dict: 01/10/222134 Trans: 01/10/222141 [facility] [id number] Interpreted by: CARMELITA PA DO Electronically signed by: CARMELITA PA DO 01/10/222141 Reviewed: Reviewed by Me Diagonstic Imaging: Xray Plain Films/CT/US/NM/MRI: ankle Comments NAME: WILD IBANEZ [facility] REC#: [id number] PT STATUS: REG ER : 1970 PHYSICIAN: RESHMA SHAFER ADMIT DATE: 01/10/22/ER Signed Date of Exam:01/10/22 ANKLE, RIGHT, 3 VIEWS CLINICAL HISTORY: Fall. Right ankle pain. COMPARISON: 04/19/2019. TECHNIQUE: 3 views of the right ankle. FINDINGS: Avulsion fracture is seen involving the anterior superior aspect of the right talus. Possible additional fracture is seen in the navicular. The right ankle itself appears well aligned without acute fracture. IMPRESSION: Avulsion fracture involving the anterior superior aspect of the right talus with possible additional fracture involving the right navicular. Dictated by: Dictated on workstation # [id number] Dict: 01/10/222135 Trans: 01/10/222141 [facility] [id number] Interpreted by: CARMELITA PA DO Electronically signed by: CARMELITA PA DO 01/10/222141 Reviewed: Reviewed by Me (RESHMA SHAFER) Departure Impression Primary Impression: Talus fracture Qualified Codes: S92.101A - Unspecified fracture of right talus, initial e ncounter for closed fracture Additional Impressions: Fall Qualified Codes: W19.XXXA - Unspecified fall, initial encounter Knee pain Qualified Codes: M25.561 - Pain in right knee Disposition: 01 HOME, SELF-CARE Condition: Improved Departure-Patient Inst. Decision time for Depature: 21:30 (RESHMA SHAFER) Referrals: [facility] (PCP/Family) Primary Care Physician REVA AWAD MD, MICHAEL P MD Patient Instructions: Ankle Fracture (DC), Knee Pain (DC) Add. Discharge Instructions: Ice and elevate right knee and right ankle. Use Boot at all times for right ankle. Use walker, partial weight bearing right leg. Follow up with ortho, call Dr. Pittman or Dr. Awad's office tomorrow for appt. Alternate Tylenol 650 mg and ibuprofen 600 mg every 4 hours for pain. All discharge instructions reviewed with patient and/or family. Voiced understanding. ATTENDING PHYSICIAN NOTE: I was physically present as attending physician in the emergency department during the care of this patient, but I was not directly involved in the decision making or delivery of care for this patient. (CHITO AMAYA MD) RESHMA SHAFER Jan 10, 2022 21:48 CHITO AMAYA MD Jan 11, 2022 07:48
[2022-01-10] MEDS ORDERED: IBUPROFEN 800 MG (MOTRIN) TAB PO STA (21:54)
[2022-01-10 22:13] VITALS: BP 160/78
== END 2022-01-10 22:13 | disposition home or self-care (01) ==
LOC: EDUNIT# 20:13 → ER 20:16
DX: S92.101A Unspecified fracture of right talus, initial encounter for closed fracture (principal); M25.561 Pain in right knee; E66.9 Obesity, unspecified; Z68.41 Body mass index [BMI] 40.0-44.9, adult; W01.0XXA Fall on same level from slipping, tripping and stumbling without subsequent striking against object, initial encounter; Y93.E1 Activity, personal bathing and showering
CPT/HCPCS: 73562; 73610; 99282; L2114

== ENCOUNTER 2022-01-16 06:26 | Outpatient (CLI) | payer MEDICARE, MEDICAID ==
[~2022-01-16] VITALS: Ht 177.8 cm; Wt 116.4 kg
[2022-01-16] MEDS ORDERED: LISI20TA26 PO (14:51)
== END 2022-01-16 15:02 | disposition home or self-care (01) ==
LOC: PREOP 06:26
PROVIDERS: ATTEND Surgery
DX: Z01.818 Encounter for other preprocedural examination (principal)

== ENCOUNTER 2022-01-29 07:22 | Day surgery (SDC) | payer MEDICARE, MEDICAID ==
[~2022-01-29] VITALS: Ht 177 cm; Wt 116.4 kg
[2022-01-29] VITALS (7 sets, daily range): BP systolic 119–149; BP diastolic 65–86
[2022-01-29] MEDS ORDERED: LACTATED RINGERS 1,000 ML IV STA (07:27)
[2022-01-29] MEDS ORDERED: PROPOFOL INJECTION 50 ML IV ONE (08:16)
[2022-01-29] MEDS ORDERED: MIDAZOLAM 2 MG/2 ML (VERSED) VIAL ONE (08:16)
--- NOTE | 2022-01-29 08:49 | Discharge Inst-Simple/Standard ---
Discharge Inst-Standard Patient Instructions/Follow Up Plan of Care/Instructions/FU: 2 years Uma Any issues before that be seen at that time. Activity as Tolerated: Yes Discharge Diet: Regular Diet ISSA GALVEZ DO Jan 29, 2022 08:49
--- NOTE | 2022-01-29 09:53 | Anesthesia-General Post-Op ---
MAC Patient Condition Mental Status/LOC: Same as Preop Cardiovascular: Satisfactory Nausea/Vomiting: Absent Respiratory: Satisfactory Pain: Controlled Complications: Absent Post Op Complications Complications None Follow Up Care/Instructions Patient Instructions None needed. Anesthesiology Discharge Order Discharge Order Patient is doing well, no complaints, stable vital signs, no apparent adverse anesthesia problems. No complications reported per nursing. FAIZA FRANCOIS CRNA Jan 29, 2022 09:53
--- NOTE | 2022-01-29 15:08 | OPERATIVE REPORT ---
DATE OF SERVICE: 01/29/2022 PREOPERATIVE DIAGNOSIS: History of rectal cancer. POSTOPERATIVE DIAGNOSES: History of rectal cancer, normal colon. PROCEDURE: Colonoscopy. SURGEON: Issa Eaton DO ANESTHESIA: Per DIXON[employer] OPERATOR. ESTIMATED BLOOD LOSS: None. COMPLICATIONS: None. INDICATIONS: The patient is a 51-year-old male with a history of rectal cancer. He understands risks and benefits of procedure and wishes to proceed. Consent was signed in the chart. DESCRIPTION OF PROCEDURE: The patient was taken to the endoscopy suite, placed in left lateral recumbent position. Timeout was performed. Digital rectal exam was performed. No palpable polyps, masses or ulcerations. Scope was inserted in the rectum and advanced all the way to cecum with minimal difficulty. Prep was adequate with irrigation and suction. Scope was then slowly retracted back. No polyps, masses or ulcerations within the cecum, ascending, transverse, descending and sigmoid colon and rectum. Scope was inserted and retracted multiple times, noting no other pathology. Scope was slowly retracted until completely removed. The patient tolerated procedure well without any complications, taken to recovery room in stable condition. RECOMMENDATIONS: The patient will need a repeat colonoscopy in 2 years. Any issues before that be seen at that time. I would maintain a 1, 3, and 5 years post-surgical intervention timeframe. Job ID: [id number] DocumentID: [id number] Dictated Date: 01/29/2022 08:50:56 Junior Loan Processor Date: 01/29/2022 15:07:23 Dictated By: ISSA EATON DO
== END 2022-01-29 09:35 | disposition home or self-care (01) ==
LOC: ENDO 07:22
PROVIDERS: ATTEND Surgery
DX: Z12.11 Encounter for screening for malignant neoplasm of colon (principal); Z85.048 Personal history of other malignant neoplasm of rectum, rectosigmoid junction, and anus; Z87.891 Personal history of nicotine dependence; Z95.2 Presence of prosthetic heart valve; E66.9 Obesity, unspecified; Z68.37 Body mass index [BMI] 37.0-37.9, adult

== ENCOUNTER 2022-02-18 13:10 | Outpatient (RCR) | payer MEDICARE, MEDICAID ==
[~2022-02-18 13:10] MED LIST changes: +VITA-212 PO; -VITA-272 PO
[2022-02-18 13:37] LABS: BASOPHILS % (AUTO) 0 % (0-10); EOSINOPHILS # (AUTO) 0.2 10^3/uL (0.0-0.3); EOSINOPHILS % (AUTO) 3 % (0-10); HEMATOCRIT 36 % (40-54); HEMOGLOBIN 11.2 g/dL (13.3-17.7); LYMPHOCYTES % (AUTO) 13 % (12-44); MEAN CORPUSCULAR HEMOGLOBIN 26 pg (25-34); MEAN CORPUSCULAR HGB CONC 31 g/dL (32-36); MEAN CORPUSCULAR VOLUME 85 fL (80-99); MEAN PLATELET VOLUME 8.6 fL (9.0-12.2); MONOCYTES # (AUTO) 0.5 10^3/uL (0.0-1.0); MONOCYTES % (AUTO) 7 % (0-12); NEUTROPHILS # (AUTO) 5.8 10^3/uL (1.8-7.8); NEUTROPHILS % (AUTO) 76 % (42-75); PLATELET COUNT 213 10^3/uL (130-400); WHITE BLOOD COUNT 7.7 10^3/uL (4.3-11.0)
[2022-02-18 14:01] LABS: ALBUMIN 3.9 GM/DL (3.2-4.5); BILIRUBIN,TOTAL 0.3 MG/DL (0.1-1.0); CALCIUM 9.3 MG/DL (8.5-10.1); CREATININE SERUM 2.04 MG/DL (0.60-1.30); POTASSIUM 3.2 MMOL/L (3.6-5.0); TOTAL PROTEIN 7.8 GM/DL (6.4-8.2)
== END 2022-02-27 | disposition home or self-care (01) ==
LOC: ONC 13:10
PROVIDERS: ATTEND Internal Medicine Hematology & Oncology
DX: C20 Malignant neoplasm of rectum (principal); D50.9 Iron deficiency anemia, unspecified; E66.01 Morbid (severe) obesity due to excess calories; N20.0 Calculus of kidney; R94.5 Abnormal results of liver function studies; Z90.5 Acquired absence of kidney; Z93.2 Ileostomy status; Z86.19 Personal history of other infectious and parasitic diseases; Z98.890 Other specified postprocedural states
CPT/HCPCS: 80053; 82378; 82728; 83540; 83550; 85025; G0463; 36415; 99213

== ENCOUNTER 2022-06-09 20:31 | Emergency (ER) | payer MEDICARE, MEDICAID ==
[~2022-06-09] VITALS: Ht 170.2 cm; Wt 117.5 kg
[2022-06-09 20:50] VITALS: BP 143/95
[2022-06-09] MEDS ORDERED: RX-TRIMETH/SULFA. 160-800 MG (BACTRIM DS) TAB PPK#2 PO STA (21:03)
[2022-06-09] MEDS ORDERED: MUPI22OI2 TP (21:06)
[2022-06-09] MEDS ORDERED: SULF1TAB38 PO (21:06)
--- NOTE | 2022-06-09 21:07 | ED Integumentary General ---
General Chief Complaint: Skin/Wound Problems Stated Complaint: LEFT INDEX FINGER RED/SWOLLEN Nursing Triage Note: PT AMB TO ED BY POV WITH MOTHER WITH C/O L INDEX FINGER SWOLLEN AND RED. PT REPORTS HE NOTICED A SPOT ON HIS FINGER THAT HE THOUGHT WAS SOME TYPE OF PIMPLE 2 DAYS AGO. REPORTS CLEAR, NON-ODOROUS DRAINAGE. EDEMA AND REDNESS NOTED TO L INDEX FINGER. NO DRAINAGE AT THIS TIME. DENIES FEVER, N/V. Source: patient, mother History of Present Illness Date Seen by Provider: Jun 09, 2022 Time Seen by Provider: 20:58 Allergies and Home Medications Allergies Coded Allergies: Penicillins (Verified Allergy, Unknown, RASH, 07/09/21) Per [facility] records (07/09/21) has tolerated amoxicillin and piperacillin/tazobactam. Patient Home Medication List Brimonidine Tartrate (Brimonidine Tartrate) 0.2 % Btl, 1 DROP OS BID, (Reported) Entered as Reported by: JARRET LUJAN on 11/23/21950 Duloxetine HCl (Duloxetine HCl) 30 Mg Capsule.dr, 90 MG PO DAILY, (Reported) Entered as Reported by: JARRET LUJAN on 11/23/21950 Latanoprost (Xalatan) 0.005 % Drops, 1 DROP OS HS, (Reported) Entered as Reported by: JARRET LUJAN on 11/23/21950 Lisinopril (Lisinopril) 20 Mg Tablet, 20 MG PO DAILY, (Reported) Entered as Reported by: IRVING GARCIA on 01/16/22 145 Mupirocin (Mupirocin) 2 % Oint...g., 22 GM TP BID Prescribed by: CHRISTIAN BROWN on 06/09/222105 Oxybutynin Chloride (Oxybutynin Chloride) 5 Mg Tablet, 10 MG PO BID, (Reported) Entered as Reported by: JARRET LUJAN on 11/23/21950 Sodium Bicarbonate (Sodium Bicarbonate) 650 Mg Tablet, 650 MG PO TID, (Reported) Entered as Reported by: JARRET LUJAN on 11/23/21950 Sulfamethoxazole/Trimethoprim (Bactrim Ds Tablet) 1 Each Tablet, 1 EACH PO BID Prescribed by: CHRISTIAN BROWN on 06/09/222105 Tamsulosin HCl (Flomax) 0.4 Mg Cap, 0.4 MG PO DAILY, (Reported) Entered as Reported by: JARRET LUJAN on 11/23/21950 Timolol Maleate (Timolol Maleate 0.5%) 0.5 % Drops, 1 DROP OS BID, (Reported) Entered as Reported by: JARRET LUJAN on 11/23/21950 Tramadol HCl (Tramadol HCl) 50 Mg Tablet, 50 MG PO Q6H PRN for PAIN-MODERATE (5- 7), (Reported) Entered as Reported by: JARRET LUJAN on 11/23/21950 Trazodone HCl (Trazodone HCl) 50 Mg Tablet, 50 MG PO HS PRN for SLEEP, (Reported) Entered as Reported by: JARRET LUJAN on 11/23/21950 Past Jpyondc-Xpbhbn-Ynnzsq Hx Patient Social History Tobacco Use?: No Use of E-Cig and/or Vaping dev: No Substance use?: No Alcohol Use?: No Pt feels they are or have been: No Immunizations Up To Date Tetanus Booster (TDap): Unknown Influenza Vaccine Up-to-Date: No; Not Current First/Initial COVID19 Vaccinat: 2020 Second COVID19 Vaccination Marshal: 2020 Third COVID19 Vaccination Date: 2021 Seasonal Allergies Seasonal Allergies: No Past Medical History Surgery/Hospitalization HX: STENTS IN BOTH KIDNEYS, bilat cateract lenses EYE, power port, colostomy revision. colon cancer, DEVELOPEMENTAL DISORDER, ANX/DEPRESSION, BIPOLAR Rt. chest port Surgeries: Yes (KIDNEY SX CHILD;CATARACT SURGERY;YAG CAPSULOTOMY;COLONOSCOPY/POLYPECTOMY) Abdominal, Bowel Surgery, Eye Surgery, Rectal Respiratory: No Currently Using CPAP: No Currently Using BIPAP: No Cardiac: Yes Hypertension Neurological: Yes (PSYCH PROBLEMS) Developmental Disorder Genitourinary: Yes (KIDNEY SURGERY CHILD) Kidney Stones Gastrointestinal: Yes (COLONOSCOPY/POLYPECTOMY COLON CANCER ) Polyps Musculoskeletal: No Endocrine: Yes (OBESITY) HEENT: Yes (CATARACT SURGERY; YAG CAPSULOTOMY) Cataract, Glaucoma Cancer: Yes (RECTAL) Colon Did You Recieve Any Treatments: Yes What Type of Treatment Did You: Chemotherapy, Radiation, Surgical Intervention Psychosocial: Yes (DEVELOPMENTAL DISABILITY) ADD/ADHD, Anxiety, Bipolar, Personality Disorder, Depression Integumentary: No Blood Disorders: No Family Medical History No Pertinent Family Hx Physical Exam Vital Signs Vital Signs - First Documented 06/09/22 20:50 Temp 36.6 Pulse 88 Resp 18 B/P (MAP) 143/95 (111) Pulse Ox 96 O2 Delivery Room Air Capillary Refill : Less Than 3 Seconds Progress/Results/Core Measures Results/Orders My Orders Orders - CHRISTIAN BROWN DO Rx-Trimeth/Sulfameth Ds Tab (Rx-Bactrim/ (06/09/22 21:03) Dipht,Pertuss(Acell),Tet Adult (Boostrix (06/09/22 21:15) Vital Signs/I&O 06/09/22 20:50 Temp 36.6 Pulse 88 Resp 18 B/P (MAP) 143/95 (111) Pulse Ox 96 O2 Delivery Room Air Blood Pressure Mean: 111 Departure Impression Primary Impression: Cellulitis of left index finger Additional Impression: Noqwjgkzpl-uetiqubeq-qewgbrx (DPT) vaccination administered at current visit Disposition: HOME, SELF-CARE Condition: Stable Departure-Patient Inst. Decision time for Depature: 21:05 Referrals: [facility] (PCP/Family) Primary Care Physician Patient Instructions: Cellulitis (Skin Infection), Adult ED, Diphtheria and Tetanus Toxoids, and Acellular Pertussis Vaccine Add. Discharge Instructions: SOAK IN WARM SOAPY WATER TWICE A DAY, APPLY ANTIBIOTIC OINTMENT AND BANDAID TO AREA TWICE A DAY YOU MAY TAKE TYLENOL AND MOTRIN NEEDED FOR PAIN FOLLOW UP WITH [facility] ON FRIDAY FOR FURTHER CARE. CALL IN THE MORNING TO SCHEDULE AN APPOINTMENT All discharge instructions reviewed with patient and/or family. Voiced understanding. Scripts Mupirocin (Mupirocin) 2 % Oint...g. 22 GM TP BID, #1 TUBE Prov: CHRISTIAN BROWN DO 06/09/22 Sulfamethoxazole/Trimethoprim (Bactrim Ds Tablet) 1 Each Tablet 1 EACH PO BID, #20 TAB Prov: CHRISTIAN BROWN DO 06/09/22 CHRISTIAN BROWN DO Jun 09, 2022 21:07
[2022-06-09] MEDS ORDERED: TETANUS,DIPTH,PERTUSS P/F (BOOSTRIX) 0.5 ML VIAL IM ONE (21:15)
== END 2022-06-09 21:35 | disposition home or self-care (01) ==
LOC: EDUNIT# 20:31 → ER 20:33
DX: L03.012 Cellulitis of left finger (principal); E66.9 Obesity, unspecified; I10 Essential (primary) hypertension; Z88.1 Allergy status to other antibiotic agents; Z23 Encounter for immunization; Z68.41 Body mass index [BMI] 40.0-44.9, adult
CPT/HCPCS: 90715; 99284

== ENCOUNTER 2022-08-12 13:17 | Outpatient (RCR) | payer MEDICARE, MEDICAID ==
[~2022-08-12 13:17] MED LIST changes: +BRIM5DRO3 OS; -BRIMON0.2 OS; +MUPI22OI2 TP; +TIMO5DRO16 OS; -TIMO5DRO5 OS
[2022-08-12 14:08] LABS: BASOPHILS % (AUTO) 0 % (0-10); EOSINOPHILS # (AUTO) 0.2 10^3/uL (0.0-0.3); EOSINOPHILS % (AUTO) 2 % (0-10); HEMATOCRIT 34 % (40-54); HEMOGLOBIN 10.8 g/dL (13.3-17.7); LYMPHOCYTES % (AUTO) 12 % (12-44); MEAN CORPUSCULAR HEMOGLOBIN 28 pg (25-34); MEAN CORPUSCULAR HGB CONC 32 g/dL (32-36); MEAN CORPUSCULAR VOLUME 87 fL (80-99); MEAN PLATELET VOLUME 8.4 fL (9.0-12.2); MONOCYTES # (AUTO) 0.6 10^3/uL (0.0-1.0); MONOCYTES % (AUTO) 7 % (0-12); NEUTROPHILS # (AUTO) 6.4 10^3/uL (1.8-7.8); NEUTROPHILS % (AUTO) 78 % (42-75); PLATELET COUNT 205 10^3/uL (130-400); WHITE BLOOD COUNT 8.2 10^3/uL (4.3-11.0)
[2022-08-12 14:15] LABS: ALBUMIN 3.8 GM/DL (3.2-4.5); BILIRUBIN,TOTAL 0.3 MG/DL (0.1-1.0); CALCIUM 9.3 MG/DL (8.5-10.1); CREATININE SERUM 2.8 MG/DL (0.60-1.30); POTASSIUM 3.4 MMOL/L (3.6-5.0); TOTAL PROTEIN 7.1 GM/DL (6.4-8.2)
== END 2022-08-28 | disposition home or self-care (01) ==
LOC: ONC 13:17
PROVIDERS: ATTEND Internal Medicine Hematology & Oncology
DX: C20 Malignant neoplasm of rectum (principal); D50.9 Iron deficiency anemia, unspecified; E66.01 Morbid (severe) obesity due to excess calories; Z90.5 Acquired absence of kidney; Z93.2 Ileostomy status; Z98.890 Other specified postprocedural states
CPT/HCPCS: 36415; 80053; 82378; 85025

== ENCOUNTER 2022-09-11 09:07 | Outpatient (RCR) | payer MEDICARE, MEDICAID ==
[2022-09-11 09:49] LABS: BASOPHILS % (AUTO) 0 % (0-10); EOSINOPHILS # (AUTO) 0.2 10^3/uL (0.0-0.3); EOSINOPHILS % (AUTO) 2 % (0-10); HEMATOCRIT 35 % (40-54); HEMOGLOBIN 10.9 g/dL (13.3-17.7); LYMPHOCYTES # (AUTO) 0.8 10^3/uL (1.0-4.0); LYMPHOCYTES % (AUTO) 8 % (12-44); MEAN CORPUSCULAR HEMOGLOBIN 28 pg (25-34); MEAN CORPUSCULAR HGB CONC 31 g/dL (32-36); MEAN CORPUSCULAR VOLUME 88 fL (80-99); MEAN PLATELET VOLUME 8.7 fL (9.0-12.2); MONOCYTES # (AUTO) 0.8 10^3/uL (0.0-1.0); MONOCYTES % (AUTO) 8 % (0-12); NEUTROPHILS # (AUTO) 7.8 10^3/uL (1.8-7.8); NEUTROPHILS % (AUTO) 81 % (42-75); PLATELET COUNT 183 10^3/uL (130-400); WHITE BLOOD COUNT 9.7 10^3/uL (4.3-11.0)
[2022-09-11 10:07] LABS: ALBUMIN 3.8 GM/DL (3.2-4.5); BILIRUBIN,TOTAL 0.4 MG/DL (0.1-1.0); CALCIUM 9.2 MG/DL (8.5-10.1); CREATININE SERUM 2.84 MG/DL (0.60-1.30); TOTAL PROTEIN 7.3 GM/DL (6.4-8.2)
[2022-09-11] MEDS ORDERED: CEFD300C3 PO (23:45)
== END 2022-09-27 | disposition home or self-care (01) ==
LOC: ONC 09:07
PROVIDERS: ATTEND Internal Medicine Hematology & Oncology
DX: C20 Malignant neoplasm of rectum (principal); D50.9 Iron deficiency anemia, unspecified; E66.01 Morbid (severe) obesity due to excess calories; Z90.5 Acquired absence of kidney; Z93.2 Ileostomy status; Z98.890 Other specified postprocedural states
CPT/HCPCS: 36415; 80053; 82378; 82728; 83540; 83550; 85025

== ENCOUNTER 2022-09-11 21:36 | Emergency (ER) | payer MEDICARE, MEDICAID ==
[~2022-09-11] VITALS: Ht 170.2 cm; Wt 120.7 kg
[2022-09-11] MEDS ORDERED: ACETAMINOPHEN 500 MG TAB (TYLENOL) PO PRN (22:00)
[2022-09-11] MEDS ORDERED: CEFEPIME INJECTION 1,000 MG in NS (IVPB) 50 ML IV ONE (22:00)
[2022-09-11] MEDS ORDERED: LACTATED RINGERS 1,000 ML IV ONE (22:00)
--- NOTE | 2022-09-11 22:10 | ED General ---
General Chief Complaint: Fever-Adult/Adol Stated Complaint: FEVER Nursing Triage Note: PT AMB TO ED BY POV WITH C/O FEVER. PT REPORTS HE HAS HAD A FEVER TODAY AND HAS FELT TIRED BUT STATES "I DON'T THINK IT'S A BIG DEAL" AND THAT HIS MADE HIM COME. DENIES URINARY SX. Source of Information: Patient (POOR HISTORIAN), Spouse ( IS FAIR HISTORIAN) History of Present Illness Date Seen by Provider: Sep 11, 2022 Time Seen by Provider: 21:50 Initial Comments PT ARRIVES VIA POV FROM HOME C/O FEVER THAT BEGAN TODAY HAS NOT TAKEN ANYTHING FOR THE FEVER PT C/O FEELING TIRED, BUT OTHERWISE DENIES ANY OTHER SYMPTOMS HE HAS BEEN EATING AND DRINKING NORMALLY NO NAUSEA/VOMITING/DIARRHEA OR ABDOMINAL PAIN URINATING NORMALLY AND NO URINARY SYMPTOMS NO COUGH OR URI SYMPTOMS OR SORE THROAT NO CHEST PAIN OR SHORTNESS OF BREATH NO SKIN WOUNDS/INFECTION PT HAS COLO-RECTAL CANCER. HE IS NOT CURRENTLY ON CHEMO OR RECEIVING ANY TREATMENT SAW DR. SANCHEZ, ONCOLOGIST TODAY AND HAD ROUTINE LAB DONE. TEMP AT THAT TIME WAS 99.4. 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 HE HAS HAD A PRIOR STENT IN RIGHT URETER--AFTER URETERAL INJURY DURING SURGERY FOR COLORECTAL CANCER. HE IS TO HAVE SURGERY AT SOME TIME TO HAVE ANOTHER STENT PLACED OR SURGERY TO REMOVE THE KIDNEY STONE. PCP ;[facility], LISHA GRIGSBY ONCOLOGY: DR[facility] Allergies and Home Medications Allergies Coded Allergies: Penicillins (Verified Allergy, Unknown, RASH, 07/09/21) Per records (07/09/21) has tolerated amoxicillin and piperacillin/tazobactam. Patient Home Medication List Home Medication List Reviewed: Yes Brimonidine Tartrate (Brimonidine Tartrate) 0.2 % Btl, 1 DROP OS BID, (Reported) Entered as Reported by: JARRET LUJAN on 11/23/21 0904 Cefdinir (Cefdinir) 300 Mg Capsule, 300 MG PO BID Prescribed by: CHRISTIAN BROWN on 09/11/22 1435 Duloxetine HCl (Duloxetine HCl) 30 Mg Capsule., 90 MG PO DAILY, (Reported) Entered as Reported by: JARRET LUJAN on 11/23/21950 Latanoprost (Xalatan) 0.005 % Drops, 1 DROP OS HS, (Reported) Entered as Reported by: JARRET LUJAN on 11/23/21950 Lisinopril (Lisinopril) 20 Mg Tablet, 20 MG PO DAILY, (Reported) Entered as Reported by: IRVING GARCIA on 01/16/22 145 Mupirocin (Mupirocin) 2 % Oint...g., 22 GM TP BID Prescribed by: CHRISTIAN BROWN on 06/09/222105 Oxybutynin Chloride (Oxybutynin Chloride) 5 Mg Tablet, 10 MG PO BID, (Reported) Entered as Reported by: JARRET LUJAN on 11/23/21950 Sodium Bicarbonate (Sodium Bicarbonate) 650 Mg Tablet, 650 MG PO TID, (Reported) Entered as Reported by: JARRET LUJAN on 11/23/21950 Sulfamethoxazole/Trimethoprim (Bactrim Ds Tablet) 1 Each Tablet, 1 EACH PO BID Prescribed by: CHRISTIAN BROWN on 06/09/222105 Tamsulosin HCl (Flomax) 0.4 Mg Cap, 0.4 MG PO DAILY, (Reported) Entered as Reported by: JARRET LUJAN on 11/23/21950 Timolol Maleate (Timolol Maleate 0.5%) 0.5 % Drops, 1 DROP OS BID, (Reported) Entered as Reported by: JARRET LUJAN on 11/23/21950 Tramadol HCl (Tramadol HCl) 50 Mg Tablet, 50 MG PO Q6H PRN for PAIN-MODERATE (5- 7), (Reported) Entered as Reported by: JARRET LUJAN on 11/23/21950 Trazodone HCl (Trazodone HCl) 50 Mg Tablet, 50 MG PO HS PRN for SLEEP, (Reported) Entered as Reported by: JARRET LUJAN on 11/23/21950 Review of Systems Review of Systems Constitutional: see HPI, fever EENTM: no symptoms reported Respiratory: no symptoms reported Cardiovascular: no symptoms reported Gastrointestinal: no symptoms reported Genitourinary: no symptoms reported Musculoskeletal: no symptoms reported Skin: no symptoms reported Psychiatric/Neurological: No Symptoms Reported Hematologic/Lymphatic: No Symptoms Reported Immunological/Allergic: no symptoms reported Past Yjkhfkg-Hldklj-Nahttv Hx Patient Social History Tobacco Use?: No Use of E-Cig and/or Vaping dev: No Substance use?: No Alcohol Use?: No Pt feels they are or have been: No Immunizations Up To Date Tetanus Booster (TDap): Unknown Influenza Vaccine Up-to-Date: Yes; Up-to-Date First/Initial COVID19 Vaccinat: 2020 Second COVID19 Vaccination Marshal: 2020 Third COVID19 Vaccination Date: 2021 Seasonal Allergies Seasonal Allergies: No Past Medical History Surgery/Hospitalization HX: STENTS IN BOTH KIDNEYS, bilat cateract lenses EYE, power port, colostomy revision. colon cancer, DEVELOPEMENTAL DISORDER, ANX/DEPRESSION, BIPOLAR Rt. chest port Surgeries: Yes (KIDNEY SX CHILD;CATARACT SURGERY;YAG CAPSULOTOMY;COLONOSCOPY/POLYPECTOMY) Abdominal, Bowel Surgery, Eye Surgery, Rectal, Renal Respiratory: No Currently Using CPAP: No Currently Using BIPAP: No Cardiac: Yes Hypertension Neurological: Yes (PSYCH PROBLEMS) Developmental Disorder Genitourinary: Yes (KIDNEY SURGERY CHILD; "URINARY PROBLEMS" ) Kidney Stones, Renal Failure Gastrointestinal: Yes (COLONOSCOPY/POLYPECTOMY 2020;2020 COLON CANCER ) Polyps Musculoskeletal: No Endocrine: Yes (OBESITY) HEENT: Yes (CATARACT SURGERY; YAG CAPSULOTOMY) Cataract, Glaucoma Cancer: Yes (RECTAL) Colon Did You Recieve Any Treatments: Yes What Type of Treatment Did You: Chemotherapy, Radiation, Surgical Intervention Psychosocial: Yes (DEVELOPMENTAL DISABILITY) ADD/ADHD, Anxiety, Bipolar, Personality Disorder, Depression Integumentary: No Blood Disorders: No Family Medical History No Pertinent Family Hx Physical Exam Vital Signs Vital Signs - First Documented Capillary Refill : Less Than 3 Seconds Height, Weight, BMI Height: 5'6.00" Weight: 330lbs. 0.0oz. 149.178189em; 41.00 BMI Method:Stated General Appearance: No Apparent Distress, WD/WN, Obese, Other (DOES NOT APPEAR ILL OR TO BE IN ANY DISCOMFORT OR DISTRESS) HEENT: Normal ENT Inspection, Other (POOR DENTITON) Neck: Normal Inspection Respiratory: Normal Breath Sounds, No Accessory Muscle Use, No Respiratory Distress Cardiovascular: Regular Rate, Rhythm, No Murmur Gastrointestinal: Non Tender, Soft Extremity: Normal Inspection Neurologic/Psychiatric: Alert, Oriented x3, No Motor/Sensory Deficits, Normal Mood/Affect, plate printer II-XII Norm as Tested, Other (PT AT NORMAL BASELINE--MENTALLY CHALLENGED. ) Skin: Normal Color, Warm/Dry; No Rash Focused Exam Sepsis Stage: Ruled Out Reason for ruling out sepsis: DOES NOT MEET CRITERIA Possible Source: Genitouriary Lactate Level 09/11/22 22:00: Lactic Acid Level 0.81 Time of Focused Exam: 23:00 Respiratory: Normal Breath Sounds, No Accessory Muscle Use, No Respiratory Distress Cardiovascular: Regular Rate, Rhythm, No Murmur Capillary Refill: Less Than 3 Seconds Skin: normal color, warm/dry Lactic Acid Level Laboratory Tests Test 09/11/22 22:00 Lactic Acid Level 0.81 MMOL/L (0.50-2.00) Within 3hrs of presentation: Admin fluids, Admin ABX, Blood cultures prior to ABX's, Focus exam, Lactate level Progress/Results/Core Measures Suspected Sepsis SIRS Temperature: Pulse: 90 Respiratory Rate: 18 Laboratory Tests 09/11/22 22:00: White Blood Count 9.5 Blood Pressure 134 /79 Mean: 97 09/11/22 22:00: Lactic Acid Level 0.81 Laboratory Tests 09/11/22 22:00: Creatinine 2.84H, INR Comment 1.1, Platelet Count 178, Total Bilirubin 0.4 Results/Orders Lab Results Laboratory Tests Test 09/11/22 22:00 09/11/22 22:55 Range/Units White Blood Count 9.5 4.3-11.0 10^3/uL Red Blood Count 3.75 L 4.30-5.52 10^6/uL Hemoglobin 10.3 L 13.3-17.7 g/dL Hematocrit 32 L 40-54 % Mean Corpuscular Volume 86 80-99 fL Mean Corpuscular Hemoglobin 28 25-34 pg Mean Corpuscular Hemoglobin Concent 32 32-36 g/dL Red Cell Distribution Width 15.1 H 10.0-14.5 % Platelet Count 178 130-400 10^3/uL Mean Platelet Volume 8.7 L 9.0-12.2 fL Immature Granulocyte % (Auto) 0 % Neutrophils (%) (Auto) 76 H 42-75 % Lymphocytes (%) (Auto) 10 L 12-44 % Monocytes (%) (Auto) 12 0-12 % Eosinophils (%) (Auto) 1 0-10 % Basophils (%) (Auto) 0 0-10 % Neutrophils # (Auto) 7.3 1.8-7.8 10^3/uL Lymphocytes # (Auto) 1.0 1.0-4.0 10^3/uL Monocytes # (Auto) 1.1 H 0.0-1.0 10^3/uL Eosinophils # (Auto) 0.1 0.0-0.3 10^3/uL Basophils # (Auto) 0.0 0.0-0.1 10^3/uL Immature Granulocyte # (Auto) 0.0 0.0-0.1 10^3/uL Prothrombin Time 14.5 12.2-14.7 SEC INR Comment 1.1 0.8-1.4 Activated Partial Thromboplast Time 33 24-35 SEC Sodium Level 136 135-145 MMOL/L Potassium Level 3.9 3.6-5.0 MMOL/L Chloride Level 106 98-107 MMOL/L Carbon Dioxide Level 21 21-32 MMOL/L Anion Gap 9 5-14 MMOL/L Blood Urea Nitrogen 31 H 7-18 MG/DL Creatinine 2.84 H 0.60-1.30 MG/DL Estimat Glomerular Filtration Rate 26 BUN/Creatinine Ratio 11 Glucose Level 101 70-105 MG/DL Lactic Acid Level 0.81 0.50-2.00 MMOL/L Calcium Level 8.9 8.5-10.1 MG/DL Corrected Calcium 9.2 8.5-10.1 MG/DL Total Bilirubin 0.4 0.1-1.0 MG/DL Aspartate Amino Transf (AST/SGOT) 12 5-34 U/L Alanine Aminotransferase (ALT/SGPT) 13 0-55 U/L Alkaline Phosphatase 75 40-136 U/L Total Protein 6.9 6.4-8.2 GM/DL Albumin 3.6 3.2-4.5 GM/DL Monoscreen NEGATIVE NEGATIVE Influenza Type A (RT-PCR) Not Detected Not Detecte Influenza Type B (RT-PCR) Not Detected Not Detecte SARS-CoV-2 RNA (RT-PCR) Not Detected Not Detecte Group A Streptococcus Screen NEGATIVE NEGATIVE Urine Color YELLOW Urine Clarity SL CLOUDY Urine pH 6.0 5-9 Urine Specific Turrell <=1.005 1.016-1.022 Urine Protein NEGATIVE NEGATIVE Urine Glucose (UA) NEGATIVE NEGATIVE Urine Ketones NEGATIVE NEGATIVE Urine Nitrite NEGATIVE NEGATIVE Urine Bilirubin NEGATIVE NEGATIVE Urine Urobilinogen 0.2 < = 1.0 MG/DL Urine Leukocyte Esterase 3+ H NEGATIVE Urine RBC (Auto) 1+ H NEGATIVE Urine RBC 0-2 /HPF Urine WBC 25-50 H /HPF Urine Squamous Epithelial Cells RARE /HPF Urine Crystals NONE /LPF Urine Bacteria TRACE /HPF Urine Casts NONE /LPF Urine Mucus NEGATIVE /LPF Urine Yeast FEW H /HPF Urine Culture Indicated CULTURE PENDING My Orders Orders - CHRISTIAN BROWN DO Ed Iv/Invasive Line Start (09/11/22 21:58) Monitor-Rhythm Ecg Trace Only (09/11/22 21:58) Ed Iv/Invasive Line Start (09/11/22 21:58) Lactated Ringers (Lr 1000 Ml Iv Solution (09/11/22 22:00) Comprehensive Metabolic Panel (09/11/22 21:58) Blood Culture (09/11/22 21:58) Sputum Culture (09/11/22:58) Urinalysis (09/11/22:58) Urine Culture (09/11/22 21:58) Protime With Inr (09/11/22:58) Partial Thromboplastin Time (09/11/22 21:58) Chest 1 View, Ap/Pa Only (09/11/22:58) Acetaminophen Tablet (Tylenol Tablet) (09/11/22 22:00) Ed Iv/Invasive Line Start (09/11/22 21:58) Ed Iv/Invasive Line Start (09/11/22 21:58) Vital Signs Adult Sepsis Patie Q15M (09/11/22 21:58) O2 (09/11/22 21:58) Remove Rings In Anticipation O (09/11/22 21:58) Lactic Acid Analyzer (09/11/22 21:58) Cefepime Injection (Maxipime Injection) (09/11/22 22:00) Influenza A And B By Pcr (09/11/22 21:58) Monotest (09/11/22 21:58) Rapid Strep A Screen (09/11/22 21:58) Covid 19 Inhouse Test (09/11/22 21:58) Cbc With Automated Diff (09/11/22 21:58) Throat Culture Strep A Confirm (09/11/22 22:00) Medications Given in ED Current Medications Medications Dose Ordered Sig/Blanca Route Start Time Stop Time Status Last Admin Dose Admin Acetaminophen 1,000 mg ONCE PRN PO 09/11/22 22:00 09/11/22 22:13 DC 09/11/22 22:12 1,000 MG Cefepime HCl 1000 mg/Sodium Chloride 50 ml @ 100 mls/hr ONCE ONCE IV 09/11/22 22:00 09/11/22 22:29 DC 09/11/22 23:30 100 MLS/HR Lactated Ringer's 1,000 ml @ 0 mls/hr Q0M ONCE IV 09/11/22 22:00 09/11/22 22:13 DC 09/11/22 22:12 1,000 MLS/HR Vital Signs/I&O 09/11/22 09/11/22 09/12/22 21:45 21:45 00:13 Temp 38.2 37.1 Pulse 90 80 Resp 18 20 B/P (MAP) 134/79 (97) 107/72 Pulse Ox 100 100 O2 Delivery Room Air Room Air Room Air Capillary Refill : Less Than 3 Seconds Blood Pressure Mean: 97 Progress Note : Progress Note SEPSIS PROTOCOL INITIATED COVID AND FLU TESTING DONE GIVEN: -IV FLUIDS -TYLENOL -ANTIBIOTICS NO DETERIORATION IN PT'S CONDITION DURING ER STAY PT HAD NO COMPLAINTS DURING ER STAY VITALS ON ARRIVAL: TEMP 38.2 = 100.8, BP 134/79, HR 94, RR 18, O2 SAT 96% ON ROOM AIR VITALS AT DISMISSAL: TEMP 37.1 = 98.8, BP 107/72, HR 80, RR 20, O2 SAT 100% ON ROOM AIR LABS INCLUDING CBC, CMP, LACTIC ACID, BLOOD CULTURES, UA PERTINENT LAB: UA WITH 3+ LEUKOCYTES, 25-50 WBC WBC NORMAL AT 9.5, HGB STABLE AT 10.3 BUN/CR 31/2.84--PT HAS CHRONICALLY BEEN TRENDING UPWARD AND IS FOLLOWED BY [facility] FOR THIS LACTIC ACID NORMAL AT 0.18 CXR-IS NORMAL. LAB TONIGHT IS ESSENTIALLY THE SAME LAB THAT WAS DONE EARLIER TODAY [facility]. DISCUSSED TEST RESULTS, ANTICIPATED COURSE, SYMPTOMATIC TREATMENT, MEDICATIONS, NEED FOR FOLLOW UP AND RETURN PRECAUTIONS REVIEWED PRIOR RECORDS, INCLUDING ER VISITS/ADMITS/H&P'S/CONSULTS/DISCHARGE SUMMARIES, TESTS/PROCEDURES. Diagnostic Imaging Comments CXR--NO ACUTE PROCESS, PENDING RADIOLOGIST REVIEW Reviewed: Reviewed by Me Departure Impression Primary Impression: UTI Additional Impressions: NIDDM Chronic renal insufficiency Disposition: HOME, SELF-CARE Condition: Stable Departure-Patient Inst. Decision time for Depature: 23:43 Referrals: ANTONI GRIGSBY APRN (PCP/Family) Primary Care Physician Patient Instructions: Urinary Tract Infection, Adult (DC), Chronic Kidney Disease (DC) Add. Discharge Instructions: TAKE ALL YOUR REGULAR MEDICATIONS PRESCRIBED YOU MAY TAKE TYLENOL 1 GRAM EVERY 6 HOURS FOR PAIN OR FEVER LOTS OF CLEAR LIQUIDS--NO COFFEE, POP OR TEA FOLLOW UP WITH [facility] FOR FURTHER TREATMENT OF KIDNEY DISEASE FOLLOW UP WITH [facility] IN 2-3 DAYS FOR FOLLOW UP ON URINARY TRACT INFECTION RETURN TO ER IF YOUR SYMPTOMS WORSEN All discharge instructions reviewed with patient and/or family. Voiced understanding. Scripts Cefdinir (Cefdinir) 300 Mg Capsule 300 MG PO BID, #20 CAP Prov: CHRISTIAN BROWN DO 09/11/22 CHRISTIAN BROWN DO Sep 11, 2022 22:10
[2022-09-11 22:15] LABS: BASOPHILS % (AUTO) 0 % (0-10); EOSINOPHILS # (AUTO) 0.1 10^3/uL (0.0-0.3); EOSINOPHILS % (AUTO) 1 % (0-10); HEMATOCRIT 32 % (40-54); HEMOGLOBIN 10.3 g/dL (13.3-17.7); LYMPHOCYTES % (AUTO) 10 % (12-44); MEAN CORPUSCULAR HEMOGLOBIN 28 pg (25-34); MEAN CORPUSCULAR HGB CONC 32 g/dL (32-36); MEAN CORPUSCULAR VOLUME 86 fL (80-99); MEAN PLATELET VOLUME 8.7 fL (9.0-12.2); MONOCYTES # (AUTO) 1.1 10^3/uL (0.0-1.0); MONOCYTES % (AUTO) 12 % (0-12); NEUTROPHILS # (AUTO) 7.3 10^3/uL (1.8-7.8); NEUTROPHILS % (AUTO) 76 % (42-75); PLATELET COUNT 178 10^3/uL (130-400); WHITE BLOOD COUNT 9.5 10^3/uL (4.3-11.0)
[2022-09-11 22:31] LABS: INR 1.1 (0.8-1.4); PROTHROMBIN TIME PATIENT 14.5 SEC (12.2-14.7)
[2022-09-11 22:39] LABS: ALBUMIN 3.6 GM/DL (3.2-4.5); BILIRUBIN,TOTAL 0.4 MG/DL (0.1-1.0); CALCIUM 8.9 MG/DL (8.5-10.1); CREATININE SERUM 2.84 MG/DL (0.60-1.30); POTASSIUM 3.9 MMOL/L (3.6-5.0); TOTAL PROTEIN 6.9 GM/DL (6.4-8.2)
[2022-09-11 23:05] LABS: BILIRUBIN,URINE NEGATIVE (NEGATIVE); COLOR,URINE YELLOW; GLUCOSE, URINE (UA) NEGATIVE (NEGATIVE); KETONES,URINE NEGATIVE (NEGATIVE); LEUKOCYTE ESTERASE ,URINE 3+ (NEGATIVE); NITRITE,URINE NEGATIVE (NEGATIVE); PROTEIN,URINE NEGATIVE (NEGATIVE)
[2022-09-11 23:16] LABS: BACTERIA,URINE TRACE /HPF; CLARITY,URINE SL CLOUDY; RBC,URINE 0-2 /HPF; SQUAMOUS EPITHELIAL CELL,UR RARE /HPF; WBC,URINE 25-50 /HPF; YEAST,URINE FEW /HPF
[2022-09-11] MEDS ORDERED: CEFD300C3 PO (23:45)
[2022-09-12 00:13] VITALS: BP 107/72
--- NOTE | 2022-09-12 08:00 | Diagnostic Imaging Report ---
EXAM: CHEST 1 VIEW, AP/PA ONLY INDICATION: Fever. COMPARISON: 11/19/2020. FINDINGS: Normal heart size and pulmonary vascularity. Right IJ tunneled port CVC tip mid SVC. No dense consolidation, pleural effusion or pneumothorax. No acute osseous findings. IMPRESSION: No acute cardiopulmonary findings. Agree with preliminary ED interpretation. Dictated by: Dictated on workstation # [id number]
== END 2022-09-12 00:13 | disposition home or self-care (01) ==
LOC: EDUNIT# 21:36 → ER 21:38
DX: N39.0 Urinary tract infection, site not specified (principal); I12.9 Hypertensive chronic kidney disease with stage 1 through stage 4 chronic kidney disease, or unspecified chronic kidney disease; E11.22 Type 2 diabetes mellitus with diabetic chronic kidney disease; N18.9 Chronic kidney disease, unspecified; E66.9 Obesity, unspecified; Z68.41 Body mass index [BMI] 40.0-44.9, adult; Z88.0 Allergy status to penicillin; Z20.822 Contact with and (suspected) exposure to COVID-19
CPT/HCPCS: 36415; 71045; 80053; 81000; 83605; 85025; 85610; 85730; 86308; 87040; 87088; 87430; 87636; 93041

== ENCOUNTER 2022-12-11 02:04 | Emergency (ER) | payer MEDICARE, MEDICAID ==
[~2022-12-11] VITALS: Ht 168 cm; Wt 150.0 kg
[~2022-12-11 02:04] MED LIST changes: +CEFD300C3 PO; -DICL100G13 TOP; +DICL100G60 TOP; +FAMO-356 PO; -FAMO20TA3 PO; +POTA-185 PO; -POTA10TA PO
[2022-12-11] MEDS ORDERED: TAMSULOSIN 0.4 MG (FLOMAX) CAP PO STA (02:39)
--- NOTE | 2022-12-11 02:49 | ED GU-Male ---
General Chief Complaint: - Reproductive Stated Complaint: DIFFICULTY URINATING Nursing Triage Note: REPORTS UNABLE TO EMPTY BLADDER X2 DAYS. Source: patient, family Exam Limitations: no limitations (PEÑA CISSE) History of Present Illness Date Seen by Provider: Dec 11, 2022 Time Seen by Provider: 02:37 Initial Comments 52yo M with h/o stage 3 colorectal cancer with left hemicolectomy, ileostomy with takedown, and chemo/rad (), L ureteral injury with stenting and ureteroneocystostomy, R nephrolithiasis, L partial nephrectomy, recent UTI, and R renal insufficiency presents to the ED with for new onset urinary retention and dysuria that started 2 days ago. Pt states for the past few days he has experienced difficulty urinating and incomplete voiding, stating that he has only been able to have a "few dribbles" of urine whenever he voids. Pt states that he has been able to urinate when he bears down but otherwise is unable. Tonight around 1030pm, pt's states that pt was having difficulty urinating and was "crying while urinating", prompting them to come to the ED for further evaluation. Unclear if pt was able to void this evening but states that his last good void was this afternoon. Pt states symptoms are similar to when he had his ureter injury. Pt denies any fevers, chills, hematuria, dark urine, abd pain, nausea, vomiting, penile discharge, increased urinary frequency and urgency, changes to BMs, and changes in appetite. Timing/Duration: this evening Severity/Quality: mild Radiation: none Activities at Onset: none Prior Genitourinary Problems: none Associated Symptoms: No abdominal pain; dysuria; No fever/chills, No lower back pain, No nausea/vomiting, No urinary frequency (PEÑA CISSE) Allergies and Home Medications Allergies Coded Allergies: Penicillins (Verified Allergy, Unknown, RASH, 07/09/21) Per [facility] records (07/09/21) has tolerated amoxicillin and piperacillin/tazobactam. Patient Home Medication List Home Medication List Reviewed: Yes (PEÑA CISSE) Brimonidine Tartrate (Brimonidine Tartrate) 0.2 % Btl, 1 DROP OS BID, (Reported) Entered as Reported by: JARRET LUJAN on 11/23/21 0951 Cefdinir (Cefdinir) 300 Mg Capsule, 300 MG PO BID Prescribed by: CHRISTIAN BROWN on 09/11/22 2345 Cephalexin (Cephalexin) 500 Mg Tablet, 500 MG PO TID Prescribed by: RAJI GELLER on 12/11/22 0342 Duloxetine HCl (Duloxetine HCl) 30 Mg Capsule.dr, 90 MG PO DAILY, (Reported) Entered as Reported by: JARRET LUJAN on 11/23/21 09 Latanoprost (Xalatan) 0.005 % Drops, 1 DROP OS HS, (Reported) Entered as Reported by: JARRET LUJAN on 11/23/21950 Lisinopril (Lisinopril) 20 Mg Tablet, 20 MG PO DAILY, (Reported) Entered as Reported by: IRVING GARCIA on 01/16/22 145 Mupirocin (Mupirocin) 2 % Oint...g., 22 GM TP BID Prescribed by: CHRISTIAN BROWN on 06/09/222105 Oxybutynin Chloride (Oxybutynin Chloride) 5 Mg Tablet, 10 MG PO BID, (Reported) Entered as Reported by: JARRET LUJAN on 11/23/21950 Sodium Bicarbonate (Sodium Bicarbonate) 650 Mg Tablet, 650 MG PO TID, (Reported) Entered as Reported by: JARRET LUJAN on 11/23/21950 Sulfamethoxazole/Trimethoprim (Bactrim Ds Tablet) 1 Each Tablet, 1 EACH PO BID Prescribed by: CHRISTIAN BROWN on 06/09/222105 Tamsulosin HCl (Flomax) 0.4 Mg Cap, 0.4 MG PO DAILY, (Reported) Entered as Reported by: JARRET LUJAN on 11/23/21950 Timolol Maleate (Timolol Maleate 0.5%) 0.5 % Drops, 1 DROP OS BID, (Reported) Entered as Reported by: JARRET LUJAN on 11/23/21950 Tramadol HCl (Tramadol HCl) 50 Mg Tablet, 50 MG PO Q6H PRN for PAIN-MODERATE (5- 7), (Reported) Entered as Reported by: JARRET LUJAN on 11/23/21950 Trazodone HCl (Trazodone HCl) 50 Mg Tablet, 50 MG PO HS PRN for SLEEP, (Reported) Entered as Reported by: JARRET LUJAN on 11/23/21 0951 Review of Systems Review of Systems Constitutional: no symptoms reported; No chills, No fever EENTM: no symptoms reported Respiratory: no symptoms reported Cardiovascular: no symptoms reported Gastrointestinal: no symptoms reported; No abdominal pain, No loss of appetite, No nausea, No vomiting Genitourinary: denies discharge; dysuria; denies frequency, denies flank pain, denies hematuria, denies pain, denies urgency Musculoskeletal: no symptoms reported Skin: no symptoms reported Psychiatric/Neurological: No Symptoms Reported Endocrine: No Symptoms Reported Hematologic/Lymphatic: No Symptoms Reported (PEÑA CISSE) All Other Systemes Reviewed Negative Unless Noted: Yes (PEÑA CISSE) Past Hzadgip-Eylaif-Qaawxf Hx Patient Social History Tobacco Use?: No Substance use?: No Alcohol Use?: No Pt feels they are or have been: No (PEÑA CISSE) Immunizations Up To Date Tetanus Booster (TDap): Unknown First/Initial COVID19 Vaccinat: 2020 Second COVID19 Vaccination Marshal: 2020 Third COVID19 Vaccination Date: 2021 (PEÑA CISSE) Seasonal Allergies Seasonal Allergies: No (PEÑA CISSE) Past Medical History Surgery/Hospitalization HX: STENTS IN BOTH KIDNEYS, bilat cateract lenses EYE, power port, colostomy revision. colon cancer, DEVELOPEMENTAL DISORDER, ANX/DEPRESSION, BIPOLAR Rt. chest port Surgeries: Yes (KIDNEY SX CHILD;CATARACT SURGERY;YAG CAPSULOTOMY;COLONOSCOPY/POLYPECTOMY) Abdominal (L hemicolectomy with colostomy and revision), Bowel Surgery (L hemicolectomy with colostomy and revision), Eye Surgery, Nephrectomy (partial L kidney), Rectal, Renal ( b/l ureteral stents) Respiratory: No Currently Using CPAP: No Currently Using BIPAP: No Cardiac: No Neurological: Yes Developmental Disorder Genitourinary: Yes (KIDNEY SURGERY CHILD; "URINARY PROBLEMS" ) Kidney Stones, Renal Failure (R renal insufficiency "14%") Gastrointestinal: Yes (COLONOSCOPY/POLYPECTOMY COLORECTAL CANCER ) Polyps Musculoskeletal: No Endocrine: Yes (OBESITY) HEENT: Yes (CATARACT SURGERY; YAG CAPSULOTOMY) Cataract, Glaucoma Cancer: Yes (RECTAL) Colon (COLORECTAL CANCER ) Did You Recieve Any Treatments: Yes What Type of Treatment Did You: Chemotherapy, Radiation, Surgical Intervention Psychosocial: Yes (DEVELOPMENTAL DISABILITY) ADD/ADHD, Anxiety, Bipolar, Personality Disorder, Depression Integumentary: No Blood Disorders: No (PEÑA CISSE) Family Medical History No Pertinent Family Hx (PEÑA CISSE) Physical Exam Vital Signs Vital Signs - First Documented 12/11/22 02:11 Temp 36.5 Pulse 89 Resp 16 B/P (MAP) 184/98 (126) Pulse Ox 100 O2 Delivery Room Air (RAJI GELLER MD) Vital Signs Capillary Refill : Less Than 3 Seconds (PEÑA CISSE) Height, Weight, BMI Height: 5'6.00" Weight: 330lbs. 0.0oz. 149.942739cu; 53.00 BMI Method:Stated General Appearance: WD/WN, no apparent distress, obese HEENT: PERRL/EOMI Cardiovascular: regular rate, rhythm, no murmur Respiratory: lungs clear, normal breath sounds, no respiratory distress, no accessory muscle use Gastrointestinal: normal bowel sounds, non tender, soft Neurologic/Psychiatric: alert, normal mood/affect, oriented x 3 Skin: normal color, warm/dry Lymphatic: no adenopathy (PEÑA CISSE) Progress/Results/Core Measures Suspected Sepsis SIRS Temperature: Pulse: 89 Respiratory Rate: 16 Blood Pressure 184 /98 Mean: 126 (PEÑA CISSE) Results/Orders Lab Results Laboratory Tests Test 12/11/22 02:50 Range/Units Urine Color YELLOW Urine Clarity CLOUDY Urine pH 5.5 5-9 Urine Specific [place] 1.015 L 1.016-1.022 Urine Protein 2+ H NEGATIVE Urine Glucose (UA) NEGATIVE NEGATIVE Urine Ketones NEGATIVE NEGATIVE Urine Nitrite POSITIVE H NEGATIVE Urine Bilirubin NEGATIVE NEGATIVE Urine Urobilinogen 0.2 < = 1.0 MG/DL Urine Leukocyte Esterase 3+ H NEGATIVE Urine RBC (Auto) 2+ H NEGATIVE Urine RBC TNTC H /HPF Urine WBC 25-50 H /HPF Urine Crystals NONE /LPF Urine Bacteria LARGE H /HPF Urine Casts NONE /LPF Urine Mucus NEGATIVE /LPF Urine Yeast MODERATE H /HPF Urine Culture Indicated YES (RAJI GELLER MD) My Orders Orders - RAJI GELLER MD Ua Culture If Indicated (12/11/22 02:39) Tamsulosin Capsule (Flomax Capsule) (12/11/22 02:39) Urine Culture (12/11/22 02:50) Ceftriaxone Iv/Im (Ceftriaxone Iv/Im) (12/11/22 03:45) Lidocaine 1% Inj 20 Ml (Xylocaine 1% Inj (12/11/22 03:45) Lidocaine 1% Inj 10 Ml (Xylocaine 1% Inj (12/11/22 03:35) (RAJI GELLER MD) Vital Signs/I&O 12/11/22 02:11 Temp 36.5 Pulse 89 Resp 16 B/P (MAP) 184/98 (126) Pulse Ox 100 O2 Delivery Room Air (RAJI GELLER MD) Vital Signs/I&O Capillary Refill : Less Than 3 Seconds (PEÑA CISSE) Blood Pressure Mean: 126 Progress Note : Time: 03:43 Progress Note Patient seen and examined by me - I have reviewed the medical student's documentation and agree. Evaluation today includes physical exam and Urinalysis. Pertinent physical exam findings - WDWn obese male in NAD. Alert, pleasant cooperative, afebrile with stable VS. No abnormal findings on exam. ( exam deferred as the patient reports no rashes, sores or lesions to the genitals). Ddx based on h&p - UTI Labs independently reviewed and interpreted by me. Patient has evidence of UTI on UA - nitrite positive, LE positive, WBC and TNTC RBC. In light of having the ureteral stents in place - will go ahead and give 1gm Rocephin (as the patient states that he "gets septic" easily. He is afebrile with no vomiting or abdominal pain - low clinical suspicion for peylonephritis. He has no CVA tenderness. Consideration for labs - however H&P do not support the need. Patient encouraged to drink fluids and cranberry juice and be compliant with medications. Return precautions discussed in detail with the patient and his who is at the bedside. All questions are sought and answered. (RAJI GELLER MD) Departure Impression Primary Impression: Urinary tract infection Qualified Codes: N39.0 - Urinary tract infection, site not specified; R31.9 - Hematuria, unspecified Disposition: 01 HOME, SELF-CARE Condition: Stable Departure-Patient Inst. Decision time for Depature: 03:38 (RAJI GELLER MD) Referrals: ANTONI GRIGSBY APRN (PCP/Family) Primary Care Physician Patient Instructions: Urinary Tract Infection, Adult (DC) Add. Discharge Instructions: Drink plenty of fluids to stay well hydrated. You can also drink cranberry juice daily which will help you clear the infection along with antibiotics. Take the antibiotics - Cephalexin 500mg tablets, 3 times a day for 10 days. Finish the entire course of 10 days. Do not stop early. You should feel much better after 2 days on the antibiotics. If you develop a fever while taking the antibiotics or have pain, vomiting or other worsening concerns, please return to the Emergency Department for re- evaluation. Call your primary care doctor for a follow up appointment for early next week. Scripts Cephalexin (Cephalexin) 500 Mg Tablet 500 MG PO TID, #30 TAB 0 Refills Prov: RAJI GELLER MD 12/11/22 Verification and Attestation of Medical Student E/M Service A medical student performed and documented this service in my presence. I reviewed and verified all information documented by the medical student and made modifications to such information, when appropriate. I personally performed the physical exam and medical decision making. Raji Geller, Dec 11, 2022,03:42 (RAJI GELLER MD) Copy Copies To 1: INGRID RIVERO TAYLOR Dec 11, 2022 02:49 RAJI GELLER MD Dec 11, 2022 03:42
[2022-12-11 03:15] LABS: BILIRUBIN,URINE NEGATIVE (NEGATIVE); CLARITY,URINE CLOUDY; COLOR,URINE YELLOW; GLUCOSE, URINE (UA) NEGATIVE (NEGATIVE); KETONES,URINE NEGATIVE (NEGATIVE); LEUKOCYTE ESTERASE ,URINE 3+ (NEGATIVE); NITRITE,URINE POSITIVE (NEGATIVE); PH,URINE 5.5 (5-9); PROTEIN,URINE 2+ (NEGATIVE)
[2022-12-11 03:16] LABS: BACTERIA,URINE LARGE /HPF; RBC,URINE TNTC /HPF; WBC,URINE 25-50 /HPF; YEAST,URINE MODERATE /HPF
[2022-12-11] MEDS ORDERED: LIDOCAINE 1% INJ 10 ML VIAL ONE (03:35)
[2022-12-11] MEDS ORDERED: CEPH500T PO (03:42)
[2022-12-11] MEDS ORDERED: LIDOCAINE 1% INJ 20 ML VIAL INJ ONE (03:45)
[2022-12-11] MEDS ORDERED: cefTRIAXone 1,000 MG VIAL IV/IM IM ONE (03:45)
[2022-12-11 03:52] VITALS: BP 164/87
== END 2022-12-11 03:54 | disposition home or self-care (01) ==
LOC: EDUNIT# 02:04 → ER 02:06
DX: N39.0 Urinary tract infection, site not specified (principal); E66.9 Obesity, unspecified; Z68.43 Body mass index [BMI] 50.0-59.9, adult; Z90.5 Acquired absence of kidney; Z96.0 Presence of urogenital implants; Z88.0 Allergy status to penicillin; Z88.1 Allergy status to other antibiotic agents
CPT/HCPCS: 81000; 87088; 99284

== ENCOUNTER → 2023-01-01 | Outpatient (CLI) | payer MEDICARE, MEDICAID ==
[~2023-01-01] MED LIST changes: +AMPI500C9 PO
[2023-01-01 14:25] LABS: BASOPHILS % (AUTO) 1 % (0-10); EOSINOPHILS # (AUTO) 0.3 10^3/uL (0.0-0.3); EOSINOPHILS % (AUTO) 4 % (0-10); HEMATOCRIT 37 % (40-54); HEMOGLOBIN 11.7 g/dL (13.3-17.7); LYMPHOCYTES # (AUTO) 1.3 10^3/uL (1.0-4.0); LYMPHOCYTES % (AUTO) 19 % (12-44); MEAN CORPUSCULAR HEMOGLOBIN 28 pg (25-34); MEAN CORPUSCULAR HGB CONC 32 g/dL (32-36); MEAN CORPUSCULAR VOLUME 89 fL (80-99); MEAN PLATELET VOLUME 8.2 fL (9.0-12.2); MONOCYTES # (AUTO) 0.7 10^3/uL (0.0-1.0); MONOCYTES % (AUTO) 9 % (0-12); NEUTROPHILS # (AUTO) 4.7 10^3/uL (1.8-7.8); NEUTROPHILS % (AUTO) 67 % (42-75); PLATELET COUNT 196 10^3/uL (130-400); WHITE BLOOD COUNT 7.1 10^3/uL (4.3-11.0)
[2023-01-01 14:50] LABS: ALBUMIN 3.7 GM/DL (3.2-4.5); BILIRUBIN,TOTAL 0.3 MG/DL (0.1-1.0); CREATININE SERUM 2.29 MG/DL (0.60-1.30); POTASSIUM 4.1 MMOL/L (3.6-5.0); TOTAL PROTEIN 7.4 GM/DL (6.4-8.2)
== END ==
LOC: ONC 13:05
PROVIDERS: ATTEND Urology
DX: C20 Malignant neoplasm of rectum (principal); D50.9 Iron deficiency anemia, unspecified; E66.01 Morbid (severe) obesity due to excess calories; N20.0 Calculus of kidney; F43.10 Post-traumatic stress disorder, unspecified; F31.9 Bipolar disorder, unspecified; Z90.5 Acquired absence of kidney
CPT/HCPCS: 80053; 85025